=== PATIENT | female | born 1945 | race Caucasian/White ===

== ENCOUNTER 2016-07-24 07:01 | Day surgery (SDC) | payer MEDICARE, OTHER ==
[2016-07-22 14:12] VITALS: BMI 42.9
[~2016-07-24 07:01] MED LIST: LACTATED RINGERS 1,000 ML IV SCH
[2016-07-24 07:21] VITALS: TEMP 97.9
[2016-07-24] MEDS ORDERED: LACTATED RINGERS 1,000 ML IV ONE ×2 (07:26)
[2016-07-24 07:30] LABS: Glucose,Whole Blood 107 mg/dL (75-99)
[2016-07-24] MEDS ORDERED: MIDAZOLAM 2 MG/2 ML VIAL ONE (08:08)
[2016-07-24] MEDS ORDERED: LIDOCAINE 1% INJ 10MG/ML (20 ML MDV) ONE (08:08)
[2016-07-24] MEDS ORDERED: PROPOFOL 10 MG/ML 20 ML VIAL IV ONE (08:08)
[2016-07-24 08:52] VITALS: BP 171/74; PULSE 83; RESP 16
--- NOTE | 2016-07-24 08:53 | P.PCN ---
Date of Procedure: 07/24/16 Preoperative Diagnosis: Postoperative Diagnosis: Procedure(s) Performed: Procedures: 1. Esophagogastroduodenoscopy and biopsy. 2. Total colonoscopy. Preoperative diagnosis: Epigastric pain, change in bowel habits and history of polyps. Postoperative diagnosis: 1. Small sliding hiatal hernia with no obvious esophagitis or complicated reflux disease. 2. Mild antral gastritis. 3. Sigmoid diverticulosis with no evidence of acute diverticulitis or strictures. 4. No polyps or tumors seen. 4. Low-grade internal hemorrhoids not bleeding at the time of this exam. Preparation: HalfLytely prep. Sedation: Was provided by anesthesia. Brief clinical history: The patient is a 71-year-old female who is scheduled for this evaluation because of epigastric pain, change in bowel habits and history of polyps. The patient has history of diverticular disease and prior bouts of diverticulitis and she may have had a recent episode last fall. Last upper endoscopy and colonoscopy was in November 2009. Procedure: With the patient on her left lateral decubitus position and after informed consent and adequate sedation, I passed the Olympus-GIF 160 video upper endoscope through the cricopharyngeus down the esophagus. GE junction was around 40-41 cm from the incisors and there was a small sliding hiatal hernia. The esophagus did not show any evidence of esophagitis or complicated reflux disease. The endoscope was then passed into the stomach which was insufflated with air and inspected in detail including the retroflex view in the cardia. There was minimal mottling and erythema in the antrum but no ulcers or erosions. Pyloric channel, duodenal bulb, post bulbar area and descending duodenum showed minimal erythema. I obtained biopsies from the duodenum, antrum and esophagus then the endoscope was withdrawn and I proceeded with the colonoscopy. Perianal area did not show any fissures or fistulas. There were no masses felt on digital rectal examination. The Olympus CFQ 160L video colonoscope was then inserted in the rectum in the usual fashion and advanced to the cecum. There were multiple diverticular orifices seen scattered in the sigmoid with no evidence of acute diverticulitis or strictures. The mucosa appeared healthy. No polyps or tumors were seen. I retroflexed endoscope in the rectum before the endoscope was withdrawn. Low-grade internal hemorrhoids were noted but there was no bleeding. The patient tolerated the procedure well. Plan: The patient was reassured. Discussed dietary measures and local care for hemorrhoids. Will await pathology results. Further plans based on her course and biopsy results. She will follow-up with you as planned. With her history of polyps, I recommended repeat colonoscopy in 5 years. Implants: Indications for Procedure: Operative Findings: Description of Procedure:
[2016-07-24 08:57] LABS: Glucose,Whole Blood 97 mg/dL (75-99)
== END 2016-07-24 09:31 | disposition home or self-care (01) ==
LOC: ORWHC2ENDO 07:01
DX: K57.30 Diverticulosis of large intestine without perforation or abscess without bleeding (principal); Z86.010 Personal history of colon polyps; K64.8 Other hemorrhoids; K29.50 Unspecified chronic gastritis without bleeding; K44.9 Diaphragmatic hernia without obstruction or gangrene; K21.0 Gastro-esophageal reflux disease with esophagitis; I10 Essential (primary) hypertension; J45.909 Unspecified asthma, uncomplicated; Z88.0 Allergy status to penicillin; Z79.899 Other long term (current) drug therapy; Z79.891 Long term (current) use of opiate analgesic
CPT/HCPCS: 88305; 88342; 45378; 43239; J2250; J2001; J2704

== ENCOUNTER 2017-05-28 11:28 | Day surgery (SDC) | payer MEDICARE, OTHER ==
[2017-05-27 09:13] VITALS: BMI 42.9
--- NOTE | 2017-05-28 09:54 | P.GSHP ---
History of Present Illness H&P Date: 05/28/17 CHIEF COMPLAINT: GERD HISTORY OF PRESENT ILLNESS: The patient is a 72-year-old female who presents reports gastroesophageal reflux disease. Upper endoscopy was offered for further evaluation and management. PAST MEDICAL HISTORY: Please see list. PAST SURGICAL HISTORY: Please see list. MEDICATIONS: Please see list. ALLERGIES: Please see list. SOCIAL HISTORY: No illicit drug use FAMILY HISTORY: No reports of Crohn disease or ulcerative colitis. REVIEW OF ORGAN SYSTEMS: CONSTITUTIONAL: No reports of fevers or chills. GI: Denies any blood in stools or constipation. PHYSICAL EXAM: VITAL SIGNS: Stable GENERAL: Well-developed and pleasant in no acute distress. HEENT: No scleral icterus. Extraocular movements grossly intact. Moist buccal mucosa. NECK: Supple without lymphadenopathy. CHEST: Unlabored respirations. Equal bilateral excursions. CARDIOVASCULAR: Regular rate and rhythm. Distal 2+ pulses. ABDOMEN: Soft, nondistended. MUSCULOSKELETAL: No clubbing, cyanosis, or edema. ASSESSMENT: 1. Gastroesophageal reflux disease PLAN: 1. Recommend proceeding with an upper endoscopy Past Medical History Past Medical History: Diabetes Mellitus, Eye Disorder, Hypertension, Osteoarthritis (OA) Additional Past Medical History / Comment(s): DIET CONTROLLED- DIABETIC, DIVERTICULITIS, LT EYE MAC. DEGEN. History of Any Multi-Drug Resistant Organisms: None Reported Past Surgical History: Cholecystectomy, Orthopedic Surgery Additional Past Surgical History / Comment(s): PAIN CLINIC INJECTIONS, RIGHT SHOULDER SX, COLONOSCOPY, EGD Past Anesthesia/Blood Transfusion Reactions: No Reported Reaction Smoking Status: Never smoker - Past Family History Mother Family Medical History: CVA/TIA Father Family Medical History: Myocardial Infarction ([place]) Medications and Allergies Home Medications Medication Instructions Recorded Confirmed Type Cholecalciferol [Vitamin D3] 5,000 unit PO DAILY 09/29/14 05/27/17 History Losartan [Cozaar] 50 mg PO DAILY 01/12/16 05/27/17 History Ranitidine HCl [Zantac] 150 mg PO DAILY 07/22/16 05/27/17 History Allergies Allergy/AdvReac Type Severity Reaction Status Date / Time Penicillins Allergy Rash/Hives Verified 05/27/17 09:09
[~2017-05-28 11:28] MED LIST changes: +LIDOCAINE 1% 20 ML VIAL (10MG/ML) FOR IV START INTRADERMA PRN
[2017-05-28 11:56] VITALS: RESP 16; TEMP 97.2
[2017-05-28 12:06] LABS: Glucose,Whole Blood 100 mg/dL (75-99)
[2017-05-28] MEDS ORDERED: PROPOFOL 10 MG/ML 20 ML VIAL IV ONE (12:36)
[2017-05-28] MEDS ORDERED: LIDOCAINE 1% INJ 10MG/ML (20 ML MDV) ONE (12:36)
--- NOTE | 2017-05-28 12:55 | P.PCN ---
Date of Procedure: 05/28/17 Description of Procedure: PREOPERATIVE DIAGNOSIS: Gastroesophageal reflux disease. Morbid obesity. POSTOPERATIVE DIAGNOSIS: Morbid obesity. Gastritis. Gastroesophageal reflux disease. OPERATION: Esophagogastroduodenoscopy with biopsies along antrum. SURGEON: Nina Mckeon MD ANESTHESIA: MAC. INDICATIONS: The patient is a 72-year-old female who presents with a history of reflux disease. Benefits and risks of the procedure were described. Informed consent was obtained. DESCRIPTION: The patient was brought into the endoscopy suite and laid in the left lateral decubitus position. An Olympus gastroscope was passed along the posterior oropharynx down to the distal esophagus where the squamocolumnar junction was encountered at 40 cm from the incisors. The stomach was entered and no bile reflux was found. Additional findings are listed below. Biopsies with cold forceps were obtained of the antrum. The first through third portion of the duodenum was examined and unremarkable. Retroflexion of the scope confirmed Hill grade 4 lower esophageal valve. The squamocolumnar junction demostrated LA grade A erosive esophagitis. The stomach was desufflated. The patient tolerated the procedure well. FINDINGS: Squamocolumnar junction 40 cm from the incisors. Diaphragmatic hiatus at 40 cm. Hill grade 1 lower esophageal valve. LA grade A erosive esophagitis. No active duodenitis. Superficial gastritis without bleeding RECOMMENDATIONS: Further recommendations pending results of pathology report. Upper endoscopy as needed. Plan - Discharge Summary New Discharge Prescriptions: No Action Cholecalciferol [Vitamin D3] 5,000 unit PO DAILY Losartan [Cozaar] 50 mg PO DAILY Ranitidine HCl [Zantac] 150 mg PO DAILY Discharge Medication List Cholecalciferol [Vitamin D3] 5,000 unit PO DAILY 09/29/14 [History] Losartan [Cozaar] 50 mg PO DAILY 01/12/16 [History] Ranitidine HCl [Zantac] 150 mg PO DAILY 07/22/16 [History]
[2017-05-28 13:23] VITALS: BP 154/82; PULSE 69
== END 2017-05-28 13:30 | disposition home or self-care (01) ==
LOC: ORWHC2ENDO 11:28
PROVIDERS: ATTEND Surgery Plastic and Reconstructive Surgery
DX: K29.50 Unspecified chronic gastritis without bleeding (principal); K22.10 Ulcer of esophagus without bleeding; K21.9 Gastro-esophageal reflux disease without esophagitis; E11.8 Type 2 diabetes mellitus with unspecified complications; I10 Essential (primary) hypertension; J45.909 Unspecified asthma, uncomplicated; M19.90 Unspecified osteoarthritis, unspecified site; E66.01 Morbid (severe) obesity due to excess calories; Z68.41 Body mass index [BMI] 40.0-44.9, adult; Z79.899 Other long term (current) drug therapy; Z88.0 Allergy status to penicillin
CPT/HCPCS: 88305; 43239; J2001; J2704

== ENCOUNTER → 2017-12-07 | Outpatient (CLI) | payer MEDICARE, OTHER ==
[2017-12-07 09:44] VITALS: BMI 42.8
== END | disposition home or self-care (01) ==
LOC: BARWHC3 08:49
PROVIDERS: ATTEND Surgery Plastic and Reconstructive Surgery
DX: E66.01 Morbid (severe) obesity due to excess calories (principal); Z68.41 Body mass index [BMI] 40.0-44.9, adult
CPT/HCPCS: 97804

== ENCOUNTER → 2017-12-16 | Outpatient (CLI) | payer MEDICARE, OTHER ==
[2017-12-16 13:48] VITALS: BP 162/71; PULSE 67; TEMP 98.7; BMI 42.9
--- NOTE | 2017-12-16 14:33 | P.HPBAR ---
Bariatric H&P - History & Physicial H&P Date: 12/16/17 History & Physicial: Visit/CC: RnY consult/sign consent/obtain PAT order Patient initial contact: Initial weight: 113.398 kg Initial weight in pounds: 250.00 Height: 5 ft 4 in Initial BMI: 42.9 Last weight: Current weight: 113.398 kg Current weight in pounds: 250.00 Current BMI: 42.9 [place] body weight (based on NIH guidelines): 54.431 kg Excess body weight loss: 0.0% The patient is a 72 year-old F who presents for Bariatric Assessment. CHIEF COMPLAINT: GERD HISTORY OF PRESENT ILLNESS: The patient is a 59-year-old female who presents reports gastroesophageal reflux disease. Upper endoscopy was offered for further evaluation and management. PAST MEDICAL HISTORY: Please see list. PAST SURGICAL HISTORY: Please see list. MEDICATIONS: Please see list. ALLERGIES: Please see list. SOCIAL HISTORY: No illicit drug use FAMILY HISTORY: No reports of Crohn disease or ulcerative colitis. REVIEW OF ORGAN SYSTEMS: CONSTITUTIONAL: No reports of fevers or chills. GI: Denies any blood in stools or constipation. PHYSICAL EXAM: VITAL SIGNS: Stable GENERAL: Well-developed and pleasant in no acute distress. HEENT: No scleral icterus. Extraocular movements grossly intact. Moist buccal mucosa. NECK: Supple without lymphadenopathy. CHEST: Unlabored respirations. Equal bilateral excursions. CARDIOVASCULAR: Regular rate and rhythm. Distal 2+ pulses. ABDOMEN: Soft, nondistended. MUSCULOSKELETAL: No clubbing, cyanosis, or edema. ASSESSMENT: 1. Gastroesophageal reflux disease 2. Hypertension PLAN: 1. Recommend proceeding EKG and labs. 2. She is looking into the sleeve despite her reflux. 3. Needs cardiac clearance. 4. Will need esophogram Past Medical History Past Medical History: Diabetes Mellitus, Eye Disorder, Hypertension, Osteoarthritis (OA) Additional Past Medical History / Comment(s): DIET CONTROLLED- DIABETIC, DIVERTICULITIS, LT EYE MAC. DEGEN. History of Any Multi-Drug Resistant Organisms: None Reported Past Surgical History: Cholecystectomy, Orthopedic Surgery Additional Past Surgical History / Comment(s): PAIN CLINIC INJECTIONS, RIGHT SHOULDER SX, COLONOSCOPY, EGD Past Anesthesia/Blood Transfusion Reactions: No Reported Reaction Smoking Status: Never smoker - Past Family History Mother Family Medical History: CVA/TIA Father Family Medical History: Myocardial Infarction ([place]) Surgical - Exam Vital Signs Temp Pulse BP 98.7 F 67 162/71 12/16/17 13:38 12/16/17 13:38 12/16/17 13:38 Bariatric Checklist Checklist: Plan: Checklist: EGD: 1. Hiatal hernia: 2. H. Pylori: HgbA1c: Vitamin D: Smoking: Never smoker Primary [place] [facility] [place] [place] Psychiatry clearance: Cardiology clearance: Sleep study: Diet journal: VTE risk score: VTE risk level: Rehab needs at discharge:
[2017-12-16 15:39] LABS: HCT 43.8 % (34.0-46.0); HGB 13.8 gm/dL (11.4-16.0); MCH 28.8 pg (25.0-35.0); MCHC 31.5 g/dL (31.0-37.0); MCV 91.7 fL (80.0-100.0); Mean Platelet Volume 7.6; Platelet Count 188 k/uL (150-450); RBC 4.77 m/uL (3.80-5.40); RDW 13.9 % (11.5-15.5); WBC 7.5 k/uL (3.8-10.6)
[2017-12-16 19:09] LABS: Iron Saturation 18.84 (12.00-45.00)
[2017-12-16 19:17] LABS: Vitamin D 25 Hydroxy 31.8 ng/mL (30.0-100.0)
[2017-12-16 20:25] LABS: Folate, Serum 14.8 ng/mL
[2017-12-17 04:48] LABS: Hemoglobin A1C 6.5 % (4.0-6.0)
[2017-12-17 04:53] LABS: Albumin 4.5 g/dL (3.80-4.90); Albumin/Globulin Ratio 1.8 (1.20-2.10); Anion Gap 16.5 mmol/L (4.00-12.00); Calcium 9.4 mg/dL (8.7-10.3); Carbon Dioxide 19.5 mmol/L (21.6-31.8); Globulin 2.5 g/dL (2.1-3.7); LDL Cholesterol,Calculated 81.2 mg/dL (0.0-131.0); Potassium 4.4 mmol/L (3.5-5.5); Total Bilirubin 0.5 mg/dL (0.3-1.2); VLDL Calculation 30.8 mg/dL (5.00-40.00)
== END | disposition home or self-care (01) ==
LOC: BARWHC3 12:56
PROVIDERS: ATTEND Surgery Plastic and Reconstructive Surgery
DX: K21.9 Gastro-esophageal reflux disease without esophagitis (principal); I10 Essential (primary) hypertension; E66.01 Morbid (severe) obesity due to excess calories; E88.81 Metabolic syndrome and other insulin resistance; E44.0 Moderate protein-calorie malnutrition; E55.9 Vitamin D deficiency, unspecified; I11.9 Hypertensive heart disease without heart failure; G47.30 Sleep apnea, unspecified; Z68.41 Body mass index [BMI] 40.0-44.9, adult
CPT/HCPCS: 84425; 80061; 80053; 82607; 82728; 82746; 83540; 83550; 84443; 85027; 82306; 83036; 93005; 36415; G0463; 99211

== ENCOUNTER → 2017-12-25 | Outpatient (CLI) | payer MEDICARE, OTHER ==
--- NOTE | 2017-12-25 14:09 | FL ---
EXAMINATION TYPE: FL esophagus cervic/pharynx DATE OF EXAM: 12/25/2017 HISTORY: Gastroesophageal reflux and nausea at night COMPARISON: NONE TECHNIQUE: A double contrast esophagram is performed utilizing air and barium. FINDINGS: Esophagus dilates to normal caliber has normal contour to the gastroesophageal junction. Gastroesopha geal junction opens to normal caliber. No hiatal hernia is evident. A few subtle tertiary contraction s were present during the examination compatible some very mild presbyesophagus. There is incomplete stripping of esophageal bolus in the horizontal drinking position. No intraluminal or extramural defect is evident. The upright view there is complete emptying of the e sophagus. IMPRESSION: 1. Minimal presbyesophagus with incomplete stripping of the esophageal bolus in the horizontal drinki ng position. 2. No reflux evident during the exam. 3. No hiatal hernia.
== END ==
LOC: RADFLWHC 11:05
PROVIDERS: ATTEND Surgery Plastic and Reconstructive Surgery
DX: K22.8 Other specified diseases of esophagus (principal)
CPT/HCPCS: 74210

== ENCOUNTER → 2018-01-20 | Outpatient (CLI) | payer MEDICARE, OTHER ==
[2018-01-20 15:09] LABS: HCT 45.2 % (34.0-46.0); HGB 14.3 gm/dL (11.4-16.0); MCH 28.7 pg (25.0-35.0); MCHC 31.6 g/dL (31.0-37.0); MCV 90.8 fL (80.0-100.0); Mean Platelet Volume 7.4; Platelet Count 189 k/uL (150-450); RBC 4.98 m/uL (3.80-5.40); RDW 13.8 % (11.5-15.5); WBC 6.6 k/uL (3.8-10.6)
[2018-01-20 15:17] LABS: Albumin 4.2 g/dL (3.5-5.0); Calcium 9.4 mg/dL (8.4-10.2); Potassium 4.7 mmol/L (3.5-5.1); Total Bilirubin 0.6 mg/dL (0.2-1.3); Total Protein 7.6 g/dL (6.3-8.2)
== END | disposition home or self-care (01) ==
LOC: LABPAT 14:09
PROVIDERS: ATTEND Surgery Plastic and Reconstructive Surgery
DX: Z01.818 Encounter for other preprocedural examination (principal)
CPT/HCPCS: 36415; 80053; 85027

== ENCOUNTER 2018-01-25 07:30 | Inpatient (IN) | payer MEDICARE, OTHER ==
--- NOTE | 2018-01-31 17:45 | P.GSHP ---
History of Present Illness H&P Date: 02/01/18 CHIEF COMPLAINT: Morbid obesity HISTORY OF PRESENT ILLNESS: Gracie Ybarra is a 72-year-old female who reports developing morbid obesity lifelong. Today she comes in weighing 242 pounds. At her present height of 5 feet 4 inches, her body mass index is 41.7. She has medical comorbidities including hypertensive heart disease, diabetes type 2, tbm-khwhdbx-beovdwupc hyperlipidemia, osteoarthritis, and sleep apnea She now comes in evaluating for the sleeve gastrectomy. PAST MEDICAL HISTORY: 1. Morbid obesity excess calories, BMI 41.7 2. Hypertensive heart disease 3. Hyperlipidemia 4. Osteoarthritis 5. Diabetes type 2, kbt-uypdsma-owgtzsnqg 6. Macular degeneration 7. Diverticulitis PAST SURGICAL HISTORY: 1. Cholecystectomy 2. Upper endoscopy 3. Lower endoscopy 4. Right shoulder repair SOCIAL HISTORY: No active tobacco use FAMILY HISTORY: Denies any DVTs, pulmonary embolisms in her family. Denies any ulcerative colitis disease or Crohn's. She does have a family history of morbid obesity. HOME MEDICATIONS: 1. Cozaar 2. Vitamin D ALLERGIES: Penicillin anaphylaxis REVIEW OF ORGAN SYSTEMS: CONSTITUTIONAL: No recent weight loss, fevers or chills. She is 98 pounds overweight. Initial BMI 41.7. HEENT: Denies any active troubles with hearing. She wears glasses. ENDOCRINE: No reports of hypothyroidism. Has diet controlled diabetes. CARDIOVASCULAR: No reports of palpitations or heart attacks or chest pain. RESPIRATORY: Has daytime somnolence including snoring, suspicious for sleep apnea. No recent asthma. GI: Denies any bright red blood per rectum, diarrhea or constipation. Has diverticulitis. MUSCULOSKELETAL: Describes generalized muscle aches. History of pain clinic for right shoulder NEURO: There were no reports of headaches or seizure disorders. PSYCH: No depression or suicidal ideation. HEMATOLOGIC: Denies any abnormal bleeding or bruising. SKIN: No skin cancer or rash PHYSICAL EXAM: VITAL SIGNS: Height 5 foot 4 inches, weight 242 pounds. BMI 41.7 GENERAL: Well-developed female in no acute distress. HEENT: No scleral icterus. Extraocular movements grossly intact. Head is normocephalic. Hears conversational speech. NECK: Supple without lymphadenopathy. CHEST: Nonlabored respirations with equal bilateral excursions. CARDIOVASCULAR: Regular rate. Distal 2+ pulses. ABDOMEN: Obese, soft, nontender, nondistended. MUSCULOSKELETAL: No clubbing, cyanosis, or edema. Gross strength 5/5 distal lower extremities. NEURO: No focal or lateralizing signs. Cranial nerves 2 through 12 grossly within normal limits. PSYCH: Appropriate affect. Alert and oriented to person, place and time. SKIN: Well perfused. Good skin turgor. STUDIES: Esophagram negative for large hiatal hernia. EKG: Normal sinus rhythm and rate from November 2017 ASSESSMENT: 1. Morbid obesity excess calories, BMI 41.7 2. Hypertensive heart disease 3. Hyperlipidemia 4. Osteoarthritis 5. Diabetes type 2, djl-exblubs-dtrpqonzm 6. Macular degeneration 7. Diverticulitis PLAN: 1. Bariatric options between a sleeve, band and a Mynor-en-Y gastric bypass were reviewed in detail. She elected for sleeve gastrectomy. Robotic assisted approach described. 2. The [place] [facility] Data was also reviewed with benefits and risks as described. 3. An ultrasound of her gallbladder was obtained. Robotic cholecystectomy was also reviewed. 4. She has completed cardiac risk assessment. 5. An 8 page second-generation bariatric consent form was reviewed in detail including potential of bleeding, infection, leaks, adequate weight loss, nutritional deficiencies which she demonstrated understanding of the risks. 6. A 2 week high-protein low caloric 800 kcal diet described to address hepatomegaly. 7. DVT prophylaxis per [place] bariat[facility] surgery collaborative. 8. Antibiotic prophylaxis. 9. Inpatient hospitalization anticipated for more than 2 nights. 10. All questions and concerns were addressed with the patient. Past Medical History Past Medical History: Diabetes Mellitus, Eye Disorder, Hypertension, Osteoarthritis (OA) Additional Past Medical History / Comment(s): DIET CONTROLLED- DIABETIC, DIVERTICULITIS, LT EYE MAC. DEGEN. History of Any Multi-Drug Resistant Organisms: None Reported Past Surgical History: Cholecystectomy, Orthopedic Surgery Additional Past Surgical History / Comment(s): PAIN CLINIC INJECTIONS, RIGHT SHOULDER SX, COLONOSCOPY, EGD Past Anesthesia/Blood Transfusion Reactions: No Reported Reaction Smoking Status: Never smoker - Past Family History Mother Family Medical History: CVA/TIA Father Family Medical History: Myocardial Infarction ([place]) Medications and Allergies Home Medications Medication Instructions Recorded Confirmed Type Losartan [Cozaar] 50 mg PO DAILY 01/12/16 01/27/18 History Cholecalciferol [Vitamin D3] 1,000 unit PO DAILY 12/12/18 12/12/18 History Allergies Allergy/AdvReac Type Severity Reaction Status Date / Time Penicillins Allergy Severe Anaphylaxis Verified 01/27/18 12:41
[2018-02-01] MEDS ORDERED: CLINDAMYCIN 900 MG in DEXTROSE 5% IN WATER 50 ML IVPB ONE ×2 (05:00)
[2018-02-01] MEDS ORDERED: DEXAMETHASONE SOD PHOSPHATE 10 MG/ML 1 ML VIAL IV ONE (05:46)
[2018-02-01] MEDS ORDERED: CHLORHEXIDINE GLUCONATE 15 ML CUP MUCOUS MEM ONE (05:46)
[2018-02-01] MEDS ORDERED: PANTOPRAZOLE 40 MG/10 ML VIAL IV STA (05:46)
[2018-02-01] MEDS ORDERED: ONDANSETRON 4 MG/2 ML VIAL IVP ONE (05:46)
[2018-02-01] MEDS ORDERED: MIDAZOLAM (PF) 2 MG/2 ML VIAL IV PRN (05:46)
[2018-02-01] MEDS ORDERED: ENOXAPARIN 40 MG/0.4 ML SYRINGE SQ STA (05:46)
[2018-02-01] MEDS ORDERED: ACETAMINOPHEN IV (For NPO) 1,000 MG in EMPTY BAG 1 BAG IVPB STA (05:46)
[2018-02-01] MEDS ORDERED: CLINDAMYCIN 600 MG in DEXTROSE 5% IN WATER 50 ML IVPB STA ×2 (05:46)
[2018-02-01 12:12] LABS: Glucose,Whole Blood 97 mg/dL (75-99)
[2018-02-01] MEDS ORDERED: LIDOCAINE 1% 20 ML VIAL (10MG/ML) FOR IV START INTRADERMA ONE (12:15)
[2018-02-01] MEDS: LACTATED RINGERS 1,000 ML IV SCH (12:15)
[2018-02-01] MEDS ORDERED: PROPOFOL 10 MG/ML 20 ML VIAL IV ONE (13:00)
[2018-02-01] MEDS ORDERED: MIDAZOLAM 2 MG/2 ML VIAL ONE (13:00)
[2018-02-01] MEDS ORDERED: fentaNYL (PF) 50 MCG/ML 2 ML AMP ONE (13:00)
[2018-02-01] MEDS ORDERED: LIDOCAINE 1% INJ 10MG/ML (20 ML MDV) ONE (13:00)
[2018-02-01] MEDS ORDERED: SUCCINYLCHOLINE CHLORIDE 100 MG/5 ML SYR IV ONE (13:00)
[2018-02-01] MEDS ORDERED: ROCURONIUM BROMIDE 10 MG/ML 10 ML VIAL IV ONE (13:00)
[2018-02-01] MEDS ORDERED: GLYCOPYRROLATE 0.2 MG/ML 2 ML VIAL ONE (13:00)
[2018-02-01] MEDS ORDERED: NEOSTIGMINE 1 MG/ML 10 ML VIAL ONE (13:00)
[2018-02-01] MEDS ORDERED: ePHEDrine SULFATE/0.9% NACL/PF 50 MG/5 ML SYRINGE IV ONE (13:00)
[2018-02-01] MEDS ORDERED: CLINDAMYCIN 150 MG/ML 4 ML VIAL IVPB ONE (13:35)
[2018-02-01] MEDS ORDERED: BUPIVACAIN-EPI 0.25%-1:200,000 30 ML VIAL SQ ONE (13:40)
[2018-02-01] MEDS ORDERED: NALOXONE 0.4 MG/ML 1 ML VIAL IV PRN (14:59)
[2018-02-01] MEDS ORDERED: diphenhydrAMINE 50 MG/ML 1 ML VIAL IVP PRN (14:59)
--- NOTE | 2018-02-01 14:59 | P.OP ---
Date of Procedure: 02/01/18 Description of Procedure: SURGEON: DIVINE SARMIENTO MD PREOPERATIVE DIAGNOSES: 1. Morbid obesity excess calories, BMI 41.7 initial 2. Hypertensive heart disease 3. Hyperlipidemia 4. Osteoarthritis 5. Diabetes type 2, cyj-tnwumwk-uobrcwqdf 6. Macular degeneration 7. Diverticulitis POSTOPERATIVE DIAGNOSES: 1. Morbid obesity excess calories, BMI 41.7 initial 2. Hypertensive heart disease 3. Hyperlipidemia 4. Osteoarthritis 5. Diabetes type 2, ife-zsgpapj-teosubxwd 6. Macular degeneration 7. Diverticulitis OPERATION: 1. Robotic assisted daVinci Xi laparoscopic sleeve gastrectomy with 40-Norwegian bougie, multiport. 2. Intraoperative esophagogastroduodenoscopy. ANESTHESIA: Gen. local anesthetic ESTIMATED BLOOD LOSS: 5 mL SPECIMENS REMOVED: Sleeve gastrectomy COMPLICATIONS: None. INDICATIONS: Gracie Ybarra is a 72-year-old female who reports developing morbid obesity lifelong. Today she comes in weighing 237 pounds from 242 pounds, 2 weeks ago. At her present height of 5 feet 4 inches, her body mass index is 40.7 from 41.7. She has medical comorbidities including hypertensive heart disease, diabetes type 2, coj-xsnkwiz-lwvxmqjij hyperlipidemia, osteoarthritis, and sleep apnea She now comes in evaluating for the sleeve gastrectomy. She comes in for sleeve gastrectomy. All surgical options for morbid obesity had been described using the [place] bariatric surgery collaborative comorbidity resolution including complication risk score. A second-generation bariatric consent form was described in detail including the possibility of protein malnutrition, leaks, gastric stricture, venous thrombosis, gastroesophageal reflux disease, need for further surgery for which she demonstrated understanding. Benefits and risks of the procedure were described at length. Informed consent was obtained. DESCRIPTION: The patient was brought into the operating room theater. Preoperatively she had received Lovenox subcutaneously for DVT prophylaxis. Additionally she had Peridex oral solution as an oral decontaminant. After general induction, the abdomen was prepped and draped in standard sterile fashion. An Ioban draping was placed along the abdomen. No keller catheter was placed A robotic da Madai Xi system was prepped and primed. The xiphoid to umbilicus measured 25 cm. At 20 cm from the xiphoid, proposed port sites were marked with indelible marker along the anterior axillary line bilaterally, mid axillary line bilaterally with each ports were marked 10 to 15 cm from each other. The nurse's assistant port was marked along the left lateral abdominal wall. The robotic stapler port was marked for the right midclavicular line. A 5 mm 0 degrees laparoscopic trocar entry was performed along the left upper quadrant. The abdomen was insufflated to 15 mmHg pressure he tolerated well. Diagnostic laparoscopy demonstrated no injury to bowel, viscera, or mesentery. The liver surface was unremarkable for hepatomegaly. No injury had occurred to the small bowel or viscera. Along the hiatus no evidence of large prominent hiatal hernia. A 8 mm port was placed along the right upper abdominal wall after exchanging the 5 mm port. A separate 8 mm port was placed along the left lateral abdominal wall. Please note that the ports were placed at least 20 cm away from the target anatomy. Care was taken to check each robotic arms were safely away from collision with the bed or the patient. At the epigastrium, a median sized Kaila liver retractor was placed under direct visualization with the [employer] Consultant placed under the right shoulder of the patient. Next, 12-mm robot stapler port was placed along the right upper quadrant. The camera 8-mm port was maintained along the epigastrium, The patient was repositioned in reverse Trendelenburg position at 14-degrees after lowering the bed. The robot was docked along the left side of the patient. Using a grasper for arm 4, a veseel sealer for arm 3, including grasper for arm 1, the robotic system was docked and primed as described. Instruments were interchanged by the nurse's assistant for stapler loads. The camera was placed at 30-degrees down. I had sat at the console. The pylorus was identified and 6 cm proximally along the greater curvature of the stomach, the short gastrics were mobilized upwards to the angle of His using a vessel sealer. Hemostasis was excellent during this portion of the procedure. The nursing senior occupational therapist placed a 40-Norwegian blunted bougie into the stomach. Robotic stapler green loads 45 mm x 2, followed by blue 45 mm x 6 loads and 1- 45 mm white loads were used to create the sleeve. Initial firing was across the antrum of the stomach towards the angle of His. The staple line was completely hemostatic and linear without corkscrewing. Hemostasis was excellent. The space from the angularis incisura of the sleeve was approximately 4 cm. I then went to the head of the bed to perform the intraoperative esophagogastroduodenoscopy leak test. The upper pole of the stomach was bathed using normal saline solution. The scope was withdrawn with careful inspection along the staple line for which no leaks were found along the entire length. Additionally, the sleeve was completely hemostatic without any encroachment along the angularis incisura. Its topology was a soft "J". No stricture was encountered upon placement of the scope. The GI tract was desufflated. The patient tolerated this portion of the procedure well. The scope was completely withdrawn. The robot was undocked. I then rescrubbed into case, whereby the irrigation fluid was aspirated from the abdominal cavity. Attention was now brought to removal of the specimen. The distal end of the sleeve gastrectomy specimen was brought out through the 12 mm port at the left upper quadrant. The specimen was gently removed en total , corresponding to 26 cm x 4 cm sleeve gastrectomy specimen. No contamination had occurred during this process. All instruments and pneumoperitoneum including irrigation fluid was removed from the abdominal cavity. The 12 mm port site was irrigated with warm normal saline solution and diluted hydron peroxide. The final incisions were closed using subcuticular interrupted suture of 4-0 Monocryl. Dermabond was applied to the skin once the skin had been cleansed. OptiFoam dressing was placed along the stomach extraction site. At the end of the procedure, needle, sponge, and instrument count was verified correct by the surgical processor. The patient was taken to the postanesthesia care unit in stable condition. She had tolerated the procedure well. FINDINGS: 1. Negative intraoperative esophagogastrojejunoscopy leak test. 2. No hepatomegaly or large hiatus hernia. 3. Total of 8 staplers used including 2 - 45 mm green robot yair, 6 - 45 mm blue loads and 1 - 45 mm white robot loads used to create the gastric sleeve. 4. Xiphoid to umbilicus of 25 cm. 5. Trocars placed 20 cm from xiphoid process 6. Sleeve gastrectomy 26 x 4 cm 7. Console time 39 minutes
[2018-02-01 15:15] LABS: Glucose,Whole Blood 165 mg/dL (75-99)
[2018-02-01] MEDS: HYDROmorphone 1 MG/ML 1 ML SYRINGE IVP PRN ×4 (15:34→21:33)
[2018-02-01] MEDS: SIMETHICONE 40 MG/0.6 ML DROPS 2,000 MG/30 ML BOTTLE PO SCH ×2 (15:51→16:40)
[2018-02-01] MEDS: ALBUTEROL NEBULIZED 2.5 MG/3 ML INHALATION SCH ×2 (16:29→18:47)
[2018-02-01 16:46] VITALS: BMI 40.4
[2018-02-01] MEDS: 0.9% NACL WITH KCL 20 MEQ/L 1,000 ML IV SCH (16:54)
[2018-02-01] MEDS: ONDANSETRON 4 MG/2 ML VIAL IVP SCH (17:00)
[2018-02-01 17:48] LABS: Glucose,Whole Blood 177 mg/dL (75-99)
[2018-02-01] MEDS: HYDROcodone/APAP 15 ML SOLUTION PO PRN (17:48)
[2018-02-01] MEDS: INSULIN ASPART 100 UNIT/ML 1 ML 10 ML VIAL SQ SCH (17:48)
[2018-02-01] MEDS ORDERED: ACETAMINOPHEN IV (For NPO) 1,000 MG in EMPTY BAG 1 BAG IVPB ONE (18:00)
[2018-02-01] MEDS: HYOSCYAMINE ORAL DROPS 1.875 MG/15 ML BOTTLE PO SCH ×2 (18:12→21:33)
[2018-02-01 18:41] VITALS: RESP 16
[2018-02-01] MEDS: CLINDAMYCIN 900 MG in DEXTROSE 5% IN WATER 50 ML IVPB SCH ×2 (21:32)
[2018-02-02] MEDS: ONDANSETRON 4 MG/2 ML VIAL IVP SCH ×3 (00:05→17:08)
[2018-02-02] MEDS: SIMETHICONE 40 MG/0.6 ML DROPS 2,000 MG/30 ML BOTTLE PO SCH ×4 (00:06→17:11)
[2018-02-02] MEDS: HYDROcodone/APAP 15 ML SOLUTION PO PRN (00:07)
[2018-02-02 00:11] LABS: Glucose,Whole Blood 149 mg/dL (75-99)
[2018-02-02] MEDS: HYOSCYAMINE ORAL DROPS 1.875 MG/15 ML BOTTLE PO SCH ×5 (00:18→17:12)
[2018-02-02] MEDS: INSULIN ASPART 100 UNIT/ML 1 ML 10 ML VIAL SQ SCH ×4 (00:18→17:13)
[2018-02-02] MEDS: 0.9% NACL WITH KCL 20 MEQ/L 1,000 ML IV SCH ×4 (00:56→17:13)
[2018-02-02] MEDS: CLINDAMYCIN 900 MG in DEXTROSE 5% IN WATER 50 ML IVPB SCH ×2 (05:33)
[2018-02-02] MEDS: HYDROmorphone 1 MG/ML 1 ML SYRINGE IVP PRN ×3 (05:34→17:06)
[2018-02-02] MEDS: LACTATED RINGERS 1,000 ML IV SCH (07:04)
[2018-02-02] MEDS: ENOXAPARIN 40 MG/0.4 ML SYRINGE SQ SCH ×2 (07:10→07:13)
[2018-02-02 07:14] LABS: Glucose,Whole Blood 105 mg/dL (75-99)
[2018-02-02] MEDS: ALBUTEROL NEBULIZED 2.5 MG/3 ML INHALATION SCH ×4 (08:45→20:38)
[2018-02-02] MEDS ORDERED: LOSARTAN 50 MG TAB PO SCH (09:00)
[2018-02-02] MEDS ORDERED: PANTOPRAZOLE 40 MG/10 ML VIAL IV SCH (09:00)
--- NOTE | 2018-02-02 09:42 | FL ---
EXAMINATION TYPE: FL UGI DATE OF EXAM: 02/02/2018 CLINICAL HISTORY: Postop gastric sleeve TECHNIQUE: Postop upper GI is performed utilizing 20 oz of Isovue 370. A total of 43 seconds of fluor oscopic time was utilized during procedure with 12 images saved. COMPARISON: None. FINDINGS: The patient swallowed contrast without difficulty or delay. Esophageal peristalsis and mo tility are within normal limits. There is minimally delayed flow of contrast along the diaphragmatic hiatus into proximal stomach and subsequent flow into gastric sleeve. There minimally delayed flow f rom distal sleeve into pylorus and duodenal sweep. Patient remains asymptomatic. There is no evidence of contrast extravasation to suggest leak. IMPRESSION: No evidence of postoperative leak. Minimal delayed propulsion likely due to minimal posto perative edema status post recent gastric sleeve surgery.
[2018-02-02 11:07] LABS: Calcium 8.8 mg/dL (8.4-10.2); Magnesium 1.9 mg/dL (1.6-2.3); Phosphorus 3.3 mg/dL (2.5-4.5); Potassium 4.6 mmol/L (3.5-5.1)
[2018-02-02 11:14] LABS: Basophils % (A) 0 %; Eosinophils % (A) 0 %; HCT 40.8 % (34.0-46.0); HGB 12.4 gm/dL (11.4-16.0); Hypochromasia Slight; Lymphocytes # (A) 0.7 k/uL (1.0-4.8); Lymphocytes % (A) 8 %; MCHC 30.5 g/dL (31.0-37.0); MCV 91.9 fL (80.0-100.0); Mean Platelet Volume 8.2; Monocytes # (A) 0.4 k/uL (0-1.0); Monocytes % (A) 4 %; Neutrophils # (A) 7.7 k/uL (1.3-7.7); Neutrophils % (A) 87 %; Platelet Count 165 k/uL (150-450); RBC 4.44 m/uL (3.80-5.40); RDW 13.8 % (11.5-15.5); WBC 8.9 k/uL (3.8-10.6)
[2018-02-02 12:08] LABS: Glucose,Whole Blood 97 mg/dL (75-99)
[2018-02-02] MEDS ORDERED: SODIUM CHLORIDE 0.9% 1,000 ML IV ONE (14:41)
[2018-02-02 15:27] VITALS: BP 151/80; PULSE 74; TEMP 98.9
--- NOTE | 2018-02-02 18:09 | P.DS ---
Providers Date of admission: 02/01/18 11:18 Attending physician: Nina Mckeon Primary care physician: Nalini Munguia Plan - Discharge Summary Discharge Rx Participant: Yes New Discharge Prescriptions: New Bisacodyl [Dulcolax] 5 mg PO DAILY PRN #10 tablet. PRN Reason: Constipation Omeprazole 40 mg PO DAILY #30 capsule. Ondansetron Odt [Zofran Odt] 4 mg PO Q8HR PRN #9 tab PRN Reason: Nausea Simethicone 40 mg/0.6 ml Drops [Mylicon Drops] 40 mg PO PCHS PRN #30 ml PRN Reason: Gas HYDROcodone/APAP 7.5-325MG [[place] 7.5-325] 1 tab PO Q4H PRN 3 Days #18 tab PRN Reason: Pain Continue Losartan [Cozaar] 50 mg PO DAILY Discontinued Cholecalciferol [Vitamin D3] 1,000 unit PO DAILY Discharge Medication List Losartan [Cozaar] 50 mg PO DAILY 01/12/16 [History] Bisacodyl [Dulcolax] 5 mg PO DAILY PRN #10 tablet. 02/02/18 [Rx] HYDROcodone/APAP 7.5-325MG [[place] 7.5-325] 1 tab PO Q4H PRN 3 Days #18 tab 02/02 [Rx] Omeprazole 40 mg PO DAILY #30 capsule. 02/02/18 [Rx] Ondansetron Odt [Zofran Odt] 4 mg PO Q8HR PRN #9 tab 02/02/18 [Rx] Simethicone 40 mg/0.6 ml Drops [Mylicon Drops] 40 mg PO PCHS PRN #30 ml [Rx] Follow up Appointment(s)/Referral(s): [facility],. [NON-STAFF] - 02/05/18 10:00 am Patient Instructions/Handouts: Nutrition after Bariatric Surgery (DC), Laparoscopic Sleeve Gastrectomy (DC) Activity/Diet/Wound Care/Special Instructions: NO lifting over 4 pounds in 4 weeks. MAY shower. No bathtub soaks. Dressings to be removed by your doctor in the office. DRINK over 64 OZ of fluids DAILY FOR OPTIMAL RECOVERY. Discharge Disposition: HOME SELF-CARE
[2018-02-03] MEDS ORDERED: BISACODYL 5 MG TABLET.DR PO PRN (08:00)
== END 2018-02-02 18:20 | disposition home or self-care (01) | DRG 620 ==
LOC: 2ORMAIN 02-01 11:18 → 4SSUR 02-01 15:14
PROVIDERS: ADMIT Surgery Plastic and Reconstructive Surgery; ATTEND Surgery Plastic and Reconstructive Surgery
PROC: 8E0W4CZ Robotic Assisted Procedure of Trunk Region, Percutaneous Endoscopic Approach (ICD-10-PCS; 2018-02-01)
PROC: 0DJ08ZZ Inspection of Upper Intestinal Tract, Via Natural or Artificial Opening Endoscopic (ICD-10-PCS; 2018-02-01)
PROC: 0DB64Z3 Excision of Stomach, Percutaneous Endoscopic Approach, Vertical (ICD-10-PCS; principal; 2018-02-01 13:15)
DX: E66.01 Morbid (severe) obesity due to excess calories (principal); K57.92 Diverticulitis of intestine, part unspecified, without perforation or abscess without bleeding; Z68.41 Body mass index [BMI] 40.0-44.9, adult; I11.9 Hypertensive heart disease without heart failure; E11.9 Type 2 diabetes mellitus without complications; M19.90 Unspecified osteoarthritis, unspecified site; E78.5 Hyperlipidemia, unspecified; G47.30 Sleep apnea, unspecified; H35.30 Unspecified macular degeneration; Z71.3 Dietary counseling and surveillance; Z79.899 Other long term (current) drug therapy; Z90.49 Acquired absence of other specified parts of digestive tract; Z88.0 Allergy status to penicillin; Z82.49 Family history of ischemic heart disease and other diseases of the circulatory system; Z82.3 Family history of stroke
CPT/HCPCS: 74240; 80051; 82310; 82565; 83735; 84100; 84520; 85025; 86850; 86900; 86901; 88307; 94640

== ENCOUNTER → 2018-02-04 | Outpatient (CLI) | payer MEDICARE, OTHER ==
[2018-02-04 11:38] VITALS: BP 175/64; PULSE 67; RESP 16; TEMP 97.7
[2018-02-04] MEDS: SODIUM CHLORIDE 0.9% 1,000 ML IV SCH ×2 (11:45→12:45)
== END ==
LOC: PROCWHC3 11:12
PROVIDERS: ATTEND Surgery Plastic and Reconstructive Surgery
DX: E86.0 Dehydration (principal)
CPT/HCPCS: 96360; 96361

== ENCOUNTER → 2018-02-05 | Outpatient (CLI) | payer MEDICARE, OTHER ==
--- NOTE | 2018-02-05 10:19 | P.PN ---
Subjective Progress Note Date: 02/05/18 DATE: 02/05/2018 CHIEF COMPLAINT: Status post sleve gastrectomy HISTORY OF PRESENT ILLNESS: Gracie Ybarra is a 72-year-old female is status post sleeve gastrectomy 02/01/2018. She is postoperative day 4. Her abdominal pain is now improved with introduction of abdominal binder. She reports that she had gotten straight cath in the hospital for urinary retention. She complains of some pain with urination. Today she comes in weighing 245 pounds from 246 pounds, 3 weeks ago. She has lost 1 pound in 3 weeks. At her present height of 5 feet 4 inches, her body mass index was 42.9. She has lost 4 pounds lifetime. Percent excess weight loss is 3%. PHYSICAL EXAM: VITAL SIGNS: Height 5 foot 4 inches, weight 245 pounds. BMI 42.2 Vital Signs Temp 98.7 F 02/05/18 11:17 Pulse 75 02/05/18 11:17 Resp BP 144/85 02/05/18 11:17 Pulse Ox GENERAL: Well-developed female in no acute distress. HEENT: No scleral icterus. Extraocular movements grossly intact. Head is normocephalic. Hears conversational speech. NECK: Supple without lymphadenopathy. CHEST: Nonlabored respirations with equal bilateral excursions. CARDIOVASCULAR: Regular rate. Distal 2+ pulses. ABDOMEN: Obese, soft, nondistended. Incisional tenderness left upper quadrant. No signs of infection on discontinuing dressing on belly. MUSCULOSKELETAL: No clubbing, cyanosis, or edema. NEURO: No focal or lateralizing signs. Cranial nerves 2 through 12 grossly within normal limits. PSYCH: Appropriate affect. Alert and oriented to person, place and time. SKIN: Well perfused. Good skin turgor. ASSESSMENT: 1. Morbid obesity excess calories, BMI 42.8 to 42.2 2. Hypertensive heart disease 3. Hyperlipidemia 4. Osteoarthritis 5. Diabetes type 2, [id number] 6. Macular degeneration 7. Diverticulitis 8. Gastroesophageal reflux disease 9. Status post sleeve gastrectomy PLAN: 1. Will get urinalysis and urine culture. 2. Antibiotics on hold pending urine culture. 3. She complains of incisional pain for which additional pain prescription written for 3 days. 4. Follow-up one week with nurse visit. ADDENDUM: Patient's urinary symptoms resolved without treatment.
[2018-02-05 11:22] VITALS: BP 144/85; PULSE 75; TEMP 98.7; BMI 42.2
[2018-02-05 12:35] LABS: Appearance,Urine Cloudy (Clear); Bacteria,Urine Occasional /hpf; Bilirubin,Urine Negative (Negative); Blood,Urine Trace (Negative); Color,Urine Light Yellow; Glucose,Urine (UA) Negative (Negative); Ketones,Urine 1+ (Negative); Leukocyte Esterase,Urine Large (Negative); Mucus,Urine Rare /hpf; Nitrite,Urine Negative (Negative); Protein,Urine Negative (Negative); RBC,Urine 31 /hpf (0-5); Specific Gravity,Urine 1.006 (1.001-1.035); Squamous Epithelial Cell,Urine 20 /hpf (0-4); Urobilinogen,Urine <2.0 mg/dL (<2.0); WBC,Urine 71 /hpf (0-5)
== END | disposition home or self-care (01) ==
LOC: BARWHC3 09:43
PROVIDERS: ATTEND Surgery Plastic and Reconstructive Surgery
DX: Z48.815 Encounter for surgical aftercare following surgery on the digestive system (principal); E66.01 Morbid (severe) obesity due to excess calories; N23 Unspecified renal colic; R63.4 Abnormal weight loss; I11.9 Hypertensive heart disease without heart failure; E78.5 Hyperlipidemia, unspecified; M19.90 Unspecified osteoarthritis, unspecified site; E11.9 Type 2 diabetes mellitus without complications; H35.30 Unspecified macular degeneration; K57.92 Diverticulitis of intestine, part unspecified, without perforation or abscess without bleeding; K21.9 Gastro-esophageal reflux disease without esophagitis; Z68.41 Body mass index [BMI] 40.0-44.9, adult; Z98.84 Bariatric surgery status
CPT/HCPCS: 81001; 87086; 87077; 87186; G0463; 99211

== ENCOUNTER → 2018-02-11 | Outpatient (CLI) | payer MEDICARE, OTHER ==
[~2018-02-11] MED LIST changes: -LACTATED RINGERS 1,000 ML IV SCH; -LIDOCAINE 1% 20 ML VIAL (10MG/ML) FOR IV START INTRADERMA PRN; +SODIUM CHLORIDE 0.9% 1,000 ML IV SCH
--- NOTE | 2018-02-11 10:43 | P.PN ---
Subjective Progress Note Date: 02/11/18 CHIEF COMPLAINT: Status post sleeve gastrectomy HISTORY OF PRESENT ILLNESS: The patient is a 72 year old female who is status post sleeve gastrectomy 02/01/2018. No reports of nausea and vomiting. She has an adequate oral intake. She reports moderate persistent discomfort of the left upper quadrant. Seroma along the left upper quadrant also improved from yesterday. No reports of fevers or chills. She held her blood pressure medication this morning. PHYSICAL EXAM: VITAL SIGNS: Currently stable. GENERAL: Well-developed in no acute distress. HEENT: No sclera icterus. Extraocular movements grossly intact. Moist buccal mucosa. Head is atraumatic, normocephalic. Hears conversational speech. No nasal drainage. NECK: Supple without lymphadenopathy. CHEST: Non-labored respirations and equal bilateral excursions. CARDIOVASCULAR: Regular rate with regular rhythm. ABDOMEN: Soft, nondistended, incisions clean dry and intact. Palpable seroma left upper quadrant resolving. No signs of cell or some infection. MUSCULOSKELETAL: No clubbing, cyanosis or edema. NEUROLOGIC: No focal or lateralizing signs. Cranial nerves II through XII grossly intact. PSYCH: Alert and oriented to person, place and time. SKIN: Well perfused. Good skin turgor. ASSESSMENT: 1. Morbid obesity due to excess calories 2. Status post sleeve gastrectomy PLAN: 1. Additional pain medication for 3 days for with consent opiate prescription obtained 2. IV fluid hydration 2 L normal saline for dehydration 3. Wear abdominal binder for comfort
[2018-02-11 11:52] VITALS: BP 133/59; PULSE 61; TEMP 98; BMI 40.3
== END ==
LOC: BARWHC3 09:56
PROVIDERS: ATTEND Surgery Plastic and Reconstructive Surgery
DX: E86.0 Dehydration (principal); E66.01 Morbid (severe) obesity due to excess calories; Z68.41 Body mass index [BMI] 40.0-44.9, adult
CPT/HCPCS: 97802; G0463; 99211

== ENCOUNTER → 2018-02-11 | Outpatient (CLI) | payer MEDICARE, OTHER ==
[2018-02-11] MEDS: SODIUM CHLORIDE 0.9% 1,000 ML IV SCH ×2 (11:10→12:10)
[2018-02-11 11:12] VITALS: BP 133/59; PULSE 61; RESP 16; TEMP 98
== END | disposition home or self-care (01) ==
LOC: PROCWHC3 11:01
PROVIDERS: ATTEND Surgery Plastic and Reconstructive Surgery
DX: E86.0 Dehydration (principal)
CPT/HCPCS: 96360; 96361

== ENCOUNTER 2018-02-12 13:46 | Emergency (ER) | payer MEDICARE, OTHER ==
[2018-02-12 13:52] VITALS: PULSE 69
--- NOTE | 2018-02-12 14:35 | ED ---
General Adult HPI - General Chief complaint: Abdominal Pain Stated complaint: Abd pain post surgery 10 days ago Source: patient Mode of arrival: ambulatory Limitations: no limitations - History of Present Illness Initial comments: Dictation was produced using [employer] dictation software. please excuse any grammatical, word or spelling errors. Chief Complaint: 72-year-old female past medical history of diabetes, obesity presents with abdominal pain status post bariatric surgery. History of Present Illness: He said 10 days ago she had sleeve gastrectomy performed by Dr. García. She states postoperatively she's been expressing a lot of pain. Patient has any nausea vomiting. No changes in bowel habits. Patient is still on clear fluids and elixir medications. She was seen by primary surgeon yesterday which is given fluids and discharged. She reports that her pain is persistent. Denies any constitutional symptoms. The ROS documented in this emergency department record has been reviewed and confirmed by me. Those systems with pertinent positive or negative responses have been documented in the HPI. All other systems are other negative and/or noncontributory. - Related Data Previous Rx's Medication Instructions Recorded HYDROcodone/APAP 7.5-325MG [[place] 1 tab PO Q4H PRN 3 Days #18 tab 02/02/18 7.5-325] Allergies Allergy/AdvReac Type Severity Reaction Status Date / Time Penicillins Allergy Severe Anaphylaxis Verified 02/12/18 14:11 Review of Systems ROS Statement: Those systems with pertinent positive or pertinent negative responses have been documented in the HPI. ROS Other: All systems not noted in ROS Statement are negative. Past Medical History Past Medical History: Diabetes Mellitus, Eye Disorder, Hypertension, Osteoarthritis (OA) Additional Past Medical History / Comment(s): DIET CONTROLLED- DIABETIC, DIVERTICULITIS, LT EYE MAC. DEGEN. History of Any Multi-Drug Resistant Organisms: None Reported Past Surgical History: Bariatric Surgery, Cholecystectomy, Orthopedic Surgery Additional Past Surgical History / Comment(s): PAIN CLINIC INJECTIONS, RIGHT SHOULDER SX, COLONOSCOPY, EGD sleeve gastrectomy 02-01-18 Past Anesthesia/Blood Transfusion Reactions: No Reported Reaction Past Psychological History: No Psychological Hx Reported Smoking Status: Former smoker Past Alcohol Use History: None Reported Past Drug Use History: None Reported - Past Family History Mother Family Medical History: CVA/TIA Father Family Medical History: Myocardial Infarction ([place]) General Exam - General Exam Comments Initial Comments: PHYSICAL EXAM: General Impression: Alert and oriented x3, not in acute distress HEENT: Normocephalic atraumatic, extra-ocular movements intact, pupils equal and reactive to light bilaterally, mucous membranes moist. Cardiovascular: Heart regular rate and rhythm, S1&S2 audible, no murmurs, rubs or gallops Chest: Lungs clear to auscultation bilaterally, no rhonchi, no wheeze, no rales Abdomen: Bowel sounds present, abdomen soft, mild tenderness of the abdomen especially around the surgical sites. Surgical sites are clean dry and intact without any erythema or drainage. Musculoskeletal: Pulses present and equal in all extremities, no peripheral edema Motor: Power 5/5 bilaterally, no focal deficits noted Neurological: CN II-XII grossly intact, no focal motor or sensory deficits noted Skin: Intact with no visualized rashes Psych: Normal affect and mood Limitations: no limitations Course Vital Signs 02/12/18 13:49 Temperature 97.3 F L Pulse Rate 69 Respiratory 18 Rate Blood Pressure 132/68 O2 Sat by Pulse 98 Oximetry Medical Decision Making - Medical Decision Making ED course: 72-year-old with female presents with postoperative pain status post sleeve gastrectomy. Vital signs upon arrival are within acceptable limits. Discussed patient case with patient's primary surgeon who requests CT without contrast. Patient appears well. No clinical suspicion of any serious surgical issue. Labs and imaging studies were obtained per request by primary surgeon and found to be normal. Patient clear for discharge. Patient told to get her pain medications at the office. Patient otherwise told to return with any worsening symptoms of abdominal pain. She especially she will go for symptoms of fever, chills or night sweats. She was stable for discharge. - Lab Data Result diagrams: 02/12/18 14:06 02/12/18 14:06 Lab Results 02/12/18 02/12/18 Range/Units 14:06 14:06 WBC 5.8 (3.8-10.6) k/uL RBC 4.63 (3.80-5.40) m/uL Hgb 13.2 (11.4-16.0) gm/dL Hct 41.0 (34.0-46.0) % MCV 88.6 (80.0-100.0) fL MCH 28.5 (25.0-35.0) pg MCHC 32.2 (31.0-37.0) g/dL RDW 14.0 (11.5-15.5) % Plt Count 166 (150-450) k/uL Neutrophils % 70 % Lymphocytes % 18 % Monocytes % 5 % Eosinophils % 4 % Basophils % 0 % Neutrophils # 4.1 (1.3-7.7) k/uL Lymphocytes # 1.0 (1.0-4.8) k/uL Monocytes # 0.3 (0-1.0) k/uL Eosinophils # 0.2 (0-0.7) k/uL Basophils # 0.0 (0-0.2) k/uL Sodium 142 (137-145) mmol/L Potassium 4.7 (3.5-5.1) mmol/L Chloride 108 H (98-107) mmol/L Carbon Dioxide 24 (22-30) mmol/L Anion Gap 10 mmol/L BUN 14 (7-17) mg/dL Creatinine 0.78 (0.52-1.04) mg/dL Est GFR (CKD-EPI)AfAm 87 (>60 ml/min/1.73 sqM) Est GFR (CKD-EPI)NonAf 75 (>60 ml/min/1.73 sqM) Glucose 86 (74-99) mg/dL Calcium 9.3 (8.4-10.2) mg/dL Total Bilirubin 0.5 (0.2-1.3) mg/dL AST 35 (14-36) U/L ALT 42 (9-52) U/L Alkaline Phosphatase 119 (38-126) U/L Total Protein 6.9 (6.3-8.2) g/dL Albumin 3.9 (3.5-5.0) g/dL Lipase 99 (23-300) U/L Disposition Clinical Impression: Abdominal pain Disposition: HOME SELF-CARE Condition: Good Instructions: Abdominal Pain (ED) Is patient prescribed a controlled substance at d/c from ED?: No Referrals: Nalini Munguia MD [Primary Care Provider] - 1-2 days Time of Disposition: 16:33
[2018-02-12 14:42] LABS: Basophils % (A) 0 %; Eosinophils # (A) 0.2 k/uL (0-0.7); Eosinophils % (A) 4 %; HGB 13.2 gm/dL (11.4-16.0); Lymphocytes % (A) 18 %; MCH 28.5 pg (25.0-35.0); MCHC 32.2 g/dL (31.0-37.0); MCV 88.6 fL (80.0-100.0); Mean Platelet Volume 7.8; Monocytes # (A) 0.3 k/uL (0-1.0); Monocytes % (A) 5 %; Neutrophils # (A) 4.1 k/uL (1.3-7.7); Neutrophils % (A) 70 %; Platelet Count 166 k/uL (150-450); RBC 4.63 m/uL (3.80-5.40); WBC 5.8 k/uL (3.8-10.6)
[2018-02-12 14:57] LABS: Albumin 3.9 g/dL (3.5-5.0); Calcium 9.3 mg/dL (8.4-10.2); Potassium 4.7 mmol/L (3.5-5.1); Total Bilirubin 0.5 mg/dL (0.2-1.3); Total Protein 6.9 g/dL (6.3-8.2)
--- NOTE | 2018-02-12 15:50 | CT ---
EXAMINATION TYPE: CT abdomen pelvis wo con DATE OF EXAM: 02/12/2018 COMPARISON: Prior CT 01/12/2016 HISTORY: Pain, post op 10 days from bariatric surgery CT DLP: 931.6 mGycm Automated exposure control for dose reduction was used. TECHNIQUE: Helical acquisition of images from the lung bases through the pelvis. FINDINGS: There has been interval gastric sleeve surgery. Increased density at focal areas along the anterior abdominal wall possibly related to patient's surgery. Lack of intravenous contrast could co mpromise sensitivity. LUNG BASES: No significant abnormality is appreciated. AORTA: No significant abnormality is appreciated. LIVER/GB: Gallbladder is absent. Liver shows no mass. PANCREAS: No significant interval change is seen. Surgical clip adjacent to the body of the pancreas as on prior SPLEEN: No significant abnormality is seen. ADRENALS: No significant abnormality is seen. KIDNEYS: No significant abnormality is seen. REPRODUCTIVE ORGANS: No significant abnormality is seen. URINARY BLADDER: No significant abnormality is seen. BOWEL: Probable duodenal diverticulum is again noted. Appendix shows luminal high attenuation, there is no inflammatory change. High attenuation present within the colon may be due to radio dense medic ations, correlate. Extensive diverticular change noted in the sigmoid colon. Surgical clip present in the pelvis as on prior. FREE AIR: No Free Air is visible. ASCITES: None visible. PELVIC ADENOPATHY: None visualized. RETROPERITONEAL ADENOPATHY: No Retroperitoneal Adenopathy visible. OSSEOUS STRUCTURES: No significant abnormality is seen. IMPRESSION: POSTOP CHANGES. NONCONTRAST EXAM. Extensive diverticulosis.
[2018-02-12 16:51] VITALS: BP 138/74; RESP 16; TEMP 97.8
== END 2018-02-12 16:49 | disposition home or self-care (01) ==
LOC: EC 13:46
DX: G89.18 Other acute postprocedural pain (principal); R10.9 Unspecified abdominal pain; E11.9 Type 2 diabetes mellitus without complications; Z87.891 Personal history of nicotine dependence; Z88.0 Allergy status to penicillin; Z98.84 Bariatric surgery status; Z90.49 Acquired absence of other specified parts of digestive tract
CPT/HCPCS: 36415; 74176; 80053; 83690; 85025; 99284

== ENCOUNTER → 2018-02-17 | Outpatient (CLI) | payer MEDICARE, OTHER ==
[2018-02-17 15:47] VITALS: BP 174/80; PULSE 69; TEMP 97.8; BMI 39.6
--- NOTE | 2018-02-17 15:52 | P.PN ---
Subjective Progress Note Date: 02/17/18 DATE: 02/17/2018 CHIEF COMPLAINT: Status post sleve gastrectomy HISTORY OF PRESENT ILLNESS: Gracie Ybarra is a 72-year-old female is status post sleeve gastrectomy 02/01/2018. She is 2 weeks out. She went to the emergency room for persistent abdominal pain as she did not safety and occupational health manager her pain prescription. She still has pain along the left upper abdomen. She also reports past history of shingles with similar pain which lasted over 3 months. She has not seen a primary care provider. Today she comes in weighing 231 pounds from 245 pounds, 3 weeks ago. She has lost 15 pound in 3 weeks, last visit. At her present height of 5 feet 4 inches , her body mass index was 42.9, now 39.7. She has lost 18 pounds lifetime. Percent excess weight loss is 18 %. PHYSICAL EXAM: VITAL SIGNS: Height 5 foot 4 inches, weight 231 pounds. BMI 39.7 Vital Signs Temp 97.8 F 02/17/18 15:42 Pulse 69 02/17/18 15:42 Resp BP 174/80 02/17/18 15:42 Pulse Ox GENERAL: Well-developed female in no acute distress. HEENT: No scleral icterus. Extraocular movements grossly intact. Head is normocephalic. Hears conversational speech. NECK: Supple without lymphadenopathy. CHEST: Nonlabored respirations with equal bilateral excursions. CARDIOVASCULAR: Regular rate. Distal 2+ pulses. ABDOMEN: Obese, soft, nondistended. No infection. No hernia. MUSCULOSKELETAL: No clubbing, cyanosis, or edema. NEURO: No focal or lateralizing signs. Cranial nerves 2 through 12 grossly within normal limits. PSYCH: Appropriate affect. Alert and oriented to person, place and time. SKIN: Well perfused. Good skin turgor. STUDIES: CT of the abdomen reviewed. ASSESSMENT: 1. Morbid obesity excess calories, BMI 42.8 to 39.7 2. Hypertensive heart disease 3. Hyperlipidemia 4. Osteoarthritis 5. Diabetes type 2, [id number] 6. Macular degeneration 7. Diverticulitis 8. Gastroesophageal reflux disease 9. 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 Recommend start of ibuprofen with omeprazole 2. Muscle relaxant prescribed for persistent left upper quadrant pain. Objective - Vital Signs Vital signs: Vital Signs Temp 97.8 F 02/17/18 15:42 Pulse 69 02/17/18 15:42 Resp BP 174/80 02/17/18 15:42 Pulse Ox Intake & Output 02/16/18 02/17/18 02/17/18 18:59 06:59 18:59 Weight 104.78 kg
== END | disposition home or self-care (01) ==
LOC: BARWHC3 14:59
PROVIDERS: ATTEND Surgery Plastic and Reconstructive Surgery
DX: Z48.815 Encounter for surgical aftercare following surgery on the digestive system (principal); E66.01 Morbid (severe) obesity due to excess calories; I11.9 Hypertensive heart disease without heart failure; E78.5 Hyperlipidemia, unspecified; M19.90 Unspecified osteoarthritis, unspecified site; E11.9 Type 2 diabetes mellitus without complications; K21.9 Gastro-esophageal reflux disease without esophagitis; H35.30 Unspecified macular degeneration; K57.92 Diverticulitis of intestine, part unspecified, without perforation or abscess without bleeding; G62.9 Polyneuropathy, unspecified; Z98.84 Bariatric surgery status; Z68.39 Body mass index [BMI] 39.0-39.9, adult
CPT/HCPCS: 99211

== ENCOUNTER → 2018-02-24 | Outpatient (CLI) | payer MEDICARE, OTHER ==
[2018-02-24 16:21] VITALS: BP 169/72; PULSE 53; RESP 18; TEMP 98.2; BMI 39.6
--- NOTE | 2018-02-24 16:33 | P.PN ---
Subjective Progress Note Date: 02/24/18 DATE: 02/24/2018 CHIEF COMPLAINT: Status post sleve gastrectomy HISTORY OF PRESENT ILLNESS: Gracie Ybarra is a 72-year-old female is status post sleeve gastrectomy 02/01/2018. She is 3 weeks out. She reports previous shingles along the right upper quadrant. She did not tolerate ibuprofen and muscle relaxant. She has become dependent on narcotics. Today she comes in weighing 231 pounds unchanged from 1 week ago. At her present height of 5 feet 4 inches, her body mass index was 42.9, now 39.7. She has lost 18 pounds lifetime. Percent excess weight loss is 18 %. PHYSICAL EXAM: VITAL SIGNS: Height 5 foot 4 inches, weight 231 pounds. BMI 39.7 Vital Signs Temp 98.2 F 02/24/18 16:18 Pulse 53 L 02/24/18 16:18 Resp 18 02/24/18 16:18 BP 169/72 02/24/18 16:18 Pulse Ox 98 02/24/18 16:18 GENERAL: Well-developed female in no acute distress. HEENT: No scleral icterus. Extraocular movements grossly intact. Head is normocephalic. Hears conversational speech. NECK: Supple without lymphadenopathy. CHEST: Nonlabored respirations with equal bilateral excursions. CARDIOVASCULAR: Regular rate. Distal 2+ pulses. ABDOMEN: Hyperesthesia of the right upper quadrant including left upper quadrant. No hernia. No infection. MUSCULOSKELETAL: No clubbing, cyanosis, or edema. NEURO: No focal or lateralizing signs. Cranial nerves 2 through 12 grossly within normal limits. PSYCH: Appropriate affect. Alert and oriented to person, place and time. SKIN: Well perfused. Good skin turgor. ASSESSMENT: 1. Morbid obesity excess calories, BMI 42.8 to 39.7 2. Hypertensive heart disease 3. Hyperlipidemia 4. Osteoarthritis 5. Diabetes type 2, [id number] 6. Macular degeneration 7. Diverticulitis 8. Gastroesophageal reflux disease 9. 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 Referral to pain specialist for pain medication adjustment and possible nerve block for history of shingles 2. Alternative for pain described. 3. May try neurontin. 4. [place] 7.5 prescribed for 3 days. Objective - Vital Signs Vital signs: Vital Signs Temp 98.2 F 02/24/18 16:18 Pulse 53 L 02/24/18 16:18 Resp 18 02/24/18 16:18 BP 169/72 02/24/18 16:18 Pulse Ox 98 02/24/18 16:18 Intake & Output 02/23/18 02/24/18 02/24/18 18:59 06:59 18:59 Weight 104.78 kg
== END ==
LOC: BARWHC3 14:57
PROVIDERS: ATTEND Surgery Plastic and Reconstructive Surgery
DX: Z48.815 Encounter for surgical aftercare following surgery on the digestive system (principal); E66.01 Morbid (severe) obesity due to excess calories; I11.9 Hypertensive heart disease without heart failure; E78.5 Hyperlipidemia, unspecified; E11.9 Type 2 diabetes mellitus without complications; K21.9 Gastro-esophageal reflux disease without esophagitis; M19.90 Unspecified osteoarthritis, unspecified site; H35.30 Unspecified macular degeneration; K57.92 Diverticulitis of intestine, part unspecified, without perforation or abscess without bleeding; G62.9 Polyneuropathy, unspecified; Z98.84 Bariatric surgery status; Z86.19 Personal history of other infectious and parasitic diseases; Z68.39 Body mass index [BMI] 39.0-39.9, adult; Z79.891 Long term (current) use of opiate analgesic
CPT/HCPCS: 99211

== ENCOUNTER → 2018-03-04 | Outpatient (CLI) | payer MEDICARE, OTHER ==
--- NOTE | 2018-03-04 14:01 | XR ---
EXAMINATION TYPE: XR abdomen complete w decub DATE OF EXAM: 03/04/2018 COMPARISON: 01/12/2016 HISTORY: 72-year-old female acute postprocedural pain, bariatric surgery TECHNIQUE: Supine, upright, and left side down lateral decubitus views of the abdomen are obtained. FINDINGS: Lung bases are clear. No evidence for free intraperitoneal air. Scattered moderate stool particularly on the right side of the abdomen. No dilated small bowel or differential air-fluid levels. Cholecystectomy clips. Dense atherosclerotic calcifications throughout the abdominal aorta. IMPRESSION: No evidence for bowel obstruction or free air. Moderate stool burden.
== END ==
LOC: RADXRMAIN 12:28
PROVIDERS: ATTEND Nurse Practitioner
DX: G89.18 Other acute postprocedural pain (principal); Z98.84 Bariatric surgery status
CPT/HCPCS: 74021

== ENCOUNTER → 2018-05-05 | Outpatient (CLI) | payer MEDICARE, OTHER ==
[2018-05-05 14:42] VITALS: BP 137/84; PULSE 76; RESP 16; TEMP 98; BMI 36.2
--- NOTE | 2018-05-05 14:42 | P.PN ---
Subjective Progress Note Date: 05/05/18 HPI: She has pre-existing epigastric pain. She has severe GERD not controlled with medications. She has aspiration in the past 3 weeks. Protein is 60 grams. She is 3 months. ABDOMEN: Soft ASSESSMENT: 1. Morbid obesity PLAN: 1. Bariatric labs 2. Upper endoscopy for hiatal hernia evaluation. 3. Dietary guidelines 4. Manometry later for esophageal spasms to be reviewed. 5. Omeprazole for GERD
[2018-05-05 16:56] LABS: HCT 45.9 % (34.0-46.0); HGB 14.2 gm/dL (11.4-16.0); MCH 28.1 pg (25.0-35.0); MCHC 30.9 g/dL (31.0-37.0); MCV 90.9 fL (80.0-100.0); Mean Platelet Volume 8.1; Platelet Count 187 k/uL (150-450); RBC 5.04 m/uL (3.80-5.40); RDW 14.1 % (11.5-15.5)
[2018-05-05 17:05] LABS: Partial Thromboplastin Time 26.4 sec (22.0-30.0); Prothrombin Time 10.7 sec (9.0-12.0)
[2018-05-06 01:32] LABS: Iron Saturation 13.68 (12.00-45.00)
[2018-05-06 01:42] LABS: Folate, Serum 14.1 ng/mL
[2018-05-06 01:53] LABS: Parathyroid Hormone Intact 46.5 pg/mL (14.0-72.0)
[2018-05-06 02:10] LABS: Albumin 4.6 g/dL (3.80-4.90); Albumin/Globulin Ratio 1.84 (1.60-3.17); Anion Gap 13.1 mmol/L (4.00-12.00); Carbon Dioxide 22.9 mmol/L (21.6-31.8); Globulin 2.5 g/dL (1.6-3.3); LDL Cholesterol,Calculated 81.6 mg/dL (0.0-131.0); Phosphorus 4.3 mg/dL (2.4-5.1); Total Bilirubin 0.5 mg/dL (0.3-1.2); Total Protein 7.1 g/dL (6.2-8.2); VLDL Calculation 19.4 mg/dL (5.00-40.00)
[2018-05-06 05:00] LABS: Hemoglobin A1C 5.6 % (4.0-6.0)
[2018-05-06 14:55] LABS: Zinc, Serum 80 ug/dL (60-130)
[2018-05-07 06:14] LABS: Vitamin A 43 ug/dL (38-106)
[2018-05-07 10:09] LABS: Vit B1(Thiamine) 80 ug/L (38-122)
[2018-05-08 13:22] LABS: Selenium 91 mcg/L (63-160)
== END | disposition home or self-care (01) ==
LOC: BARWHC3 13:48
PROVIDERS: ATTEND Surgery Plastic and Reconstructive Surgery
DX: E66.01 Morbid (severe) obesity due to excess calories (principal); Z68.36 Body mass index [BMI] 36.0-36.9, adult
CPT/HCPCS: 84255; 84134; 84425; 80061; 80053; 82607; 82728; 82525; 82746; 83540; 83550; 83735; 84100; 84443; 84590; 84630; 85027; 85610; 85730; 82306; 83970; 83036; 97803; 36415; G0463; 99211

== ENCOUNTER → 2018-05-05 | Outpatient (CLI) | payer MEDICARE, OTHER | END | disposition home or self-care (01) | LOC: LABWHC1 16:12 | PROVIDERS: ATTEND Surgery Plastic and Reconstructive Surgery | DX: Z53.9 Procedure and treatment not carried out, unspecified reason (principal) ==

== ENCOUNTER 2018-06-21 09:40 | Day surgery (SDC) | payer MEDICARE, OTHER ==
[2018-06-16 16:08] VITALS: BMI 34.3
--- NOTE | 2018-06-20 09:17 | P.GSHP ---
History of Present Illness H&P Date: 06/21/18 CHIEF COMPLAINT: GERD HISTORY OF PRESENT ILLNESS: The patient is a 73-year-old female who presents reports gastroesophageal reflux disease. Upper endoscopy was offered for further evaluation and management. PAST MEDICAL HISTORY: Please see list. PAST SURGICAL HISTORY: Please see list. MEDICATIONS: Please see list. ALLERGIES: Please see list. SOCIAL HISTORY: No illicit drug use FAMILY HISTORY: No reports of Crohn disease or ulcerative colitis. REVIEW OF ORGAN SYSTEMS: CONSTITUTIONAL: No reports of fevers or chills. GI: Denies any blood in stools or constipation. PHYSICAL EXAM: VITAL SIGNS: Stable GENERAL: Well-developed and pleasant in no acute distress. HEENT: No scleral icterus. Extraocular movements grossly intact. Moist buccal mucosa. NECK: Supple without lymphadenopathy. CHEST: Unlabored respirations. Equal bilateral excursions. CARDIOVASCULAR: Regular rate and rhythm. Distal 2+ pulses. ABDOMEN: Soft, nondistended. MUSCULOSKELETAL: No clubbing, cyanosis, or edema. ASSESSMENT: 1. Gastroesophageal reflux disease PLAN: 1. Recommend proceeding with an upper endoscopy Past Medical History Past Medical History: Eye Disorder, Hypertension, Osteoarthritis (OA) Additional Past Medical History / Comment(s): Hx. of DIVERTICULITIS, LT EYE MAC. DEGEN. HTN resolved after surgery. History of Any Multi-Drug Resistant Organisms: None Reported Past Surgical History: Bariatric Surgery, Cholecystectomy, Orthopedic Surgery, Tubal Ligation Additional Past Surgical History / Comment(s): PAIN CLINIC INJECTIONS, RIGHT SHOULDER SX, COLONOSCOPY, EGD sleeve gastrectomy 02-01-18 Past Anesthesia/Blood Transfusion Reactions: No Reported Reaction Smoking Status: Former smoker - Past Family History Mother Family Medical History: CVA/TIA Father Family Medical History: Myocardial Infarction ([place]) Medications and Allergies Home Medications Medication Instructions Recorded Confirmed Type Omeprazole 40 mg PO DAILY #90 capsule. 05/05/18 06/16/18 Rx Cholecalciferol (Vitamin D3) 1 tab PO DAILY 05/06/18 06/16/18 History [Vitamin D3] Multivitamins, Thera [Multivitamin 1 tab PO DAILY 05/06/18 06/16/18 History (formulary)] Allergies Allergy/AdvReac Type Severity Reaction Status Date / Time Penicillins Allergy Severe Anaphylaxis Verified 06/16/18 15:57
[~2018-06-21 09:40] MED LIST changes: +LACTATED RINGERS 1,000 ML IV SCH; +LIDOCAINE 1% 20 ML VIAL (10MG/ML) FOR IV START INTRADERMA PRN; -SODIUM CHLORIDE 0.9% 1,000 ML IV SCH
[2018-06-21 10:01] VITALS: TEMP 98
[2018-06-21] MEDS ORDERED: LACTATED RINGERS 1,000 ML IV ONE (10:01)
[2018-06-21] MEDS ORDERED: LIDOCAINE 1% 20 ML VIAL (10MG/ML) FOR IV START INTRADERMA ONE (10:01)
[2018-06-21] MEDS ORDERED: ESMOLOL 100 MG/10 ML VIAL ONE (11:05)
[2018-06-21] MEDS ORDERED: LIDOCAINE 1% INJ 10MG/ML (20 ML MDV) ONE (11:05)
[2018-06-21] MEDS ORDERED: PROPOFOL 10 MG/ML 20 ML VIAL IV ONE (11:05)
[2018-06-21] MEDS ORDERED: METOPROLOL TARTRATE 5 MG/5 ML VIAL IVP ONE (11:05)
--- NOTE | 2018-06-21 11:40 | P.PCN ---
Date of Procedure: 06/21/18 Description of Procedure: PREOPERATIVE DIAGNOSIS: Status post sleeve gastrectomy. Gastroesophageal reflux disease. Epigastric abdominal pain. POSTOPERATIVE DIAGNOSIS: Status post sleeve gastrectomy. Gastroesophageal reflux disease. Epigastric abdominal pain. Chronic superficial gastritis. OPERATION: Esophagogastroduodenoscopy with cold forceps biopsies along the antrum. SURGEON: Nina Mckeon MD ANESTHESIA: MAC. INDICATIONS: The patient is a 73-year-old female who presents with a history of sleeve gastrectomy with abdominal pain. Benefits and risks of the procedure were described. Informed consent was obtained. DESCRIPTION: The patient was brought into the endoscopy suite and laid in the left lateral decubitus position. An Olympus gastroscope was passed along the posterior oropharynx down to the distal esophagus where the squamocolumnar junction was at 40 centimeters from the incisors. The stomach was entered and sleeve reservoir was appropriate size without dilation or ability to retroflex. Chronic gastritis albeit mild was found along the antrum with cold biopsies obtained. The first through third portion of the duodenum was examined and unremarkable. No distortion of the gastric sleeve was identified. The stomach was desufflated. The patient tolerated the procedure well. FINDINGS: No acute ulceration found along her sleeve. No corkscrewing sleeve gastrectomy. Squamocolumnar junction at 40 cm from the incisors. Diaphragmatic hiatus at 40 cm. Normal size gastric reservoir with prior history of sleeve gastrectomy LA grade A erosive esophagitis. No active duodenitis. Chronic gastritis. RECOMMENDATIONS: Upper endoscopy as needed. Plan - Discharge Summary Discharge Rx Participant: Yes New Discharge Prescriptions: New Omeprazole 40 mg PO DAILY #90 capsule. No Action Omeprazole 40 mg PO DAILY #90 capsule. Multivitamins, Thera [Multivitamin (formulary)] 1 tab PO DAILY Cholecalciferol (Vitamin D3) [Vitamin D3] 1 tab PO DAILY Discharge Medication List Omeprazole 40 mg PO DAILY #90 capsule. 05/05/18 [Rx] Cholecalciferol (Vitamin D3) [Vitamin D3] 1 tab PO DAILY 05/06/18 [History] Multivitamins, Thera [Multivitamin (formulary)] 1 tab PO DAILY 05/06/18 [History] Omeprazole 40 mg PO DAILY #90 capsule. 06/21/18 [Rx] Follow up Appointment(s)/Referral(s): [facility],. [NON-STAFF] - 07/07/18 Patient Instructions/Handouts: Gastritis (DC) Discharge Disposition: HOME SELF-CARE
[2018-06-21 11:52] VITALS: BP 141/70; PULSE 59; RESP 16
== END 2018-06-21 12:13 | disposition home or self-care (01) ==
LOC: ORWHC2ENDO 09:40
PROVIDERS: ATTEND Surgery Plastic and Reconstructive Surgery
DX: K29.30 Chronic superficial gastritis without bleeding (principal); K22.10 Ulcer of esophagus without bleeding; K21.9 Gastro-esophageal reflux disease without esophagitis; I10 Essential (primary) hypertension; M19.90 Unspecified osteoarthritis, unspecified site; Z90.3 Acquired absence of stomach [part of]; Z98.84 Bariatric surgery status; Z87.891 Personal history of nicotine dependence; Z79.899 Other long term (current) drug therapy; Z88.0 Allergy status to penicillin; Z90.49 Acquired absence of other specified parts of digestive tract
CPT/HCPCS: 88305; 43239; J2001; J2704

== ENCOUNTER → 2018-07-07 | Outpatient (CLI) | payer MEDICARE, OTHER ==
--- NOTE | 2018-07-07 13:59 | P.PN ---
Subjective Progress Note Date: 07/07/18 HPI: She reports improvement of her GERD. She is taking Zantac. She reports gnawing pain with eating more. She takes cottage cheese and yogurt. She reports spasm of the abdomen. ABDOMEN: Nondistended. ASSESSMENT: 1. Morbid obesity 2. Irritable bowel syndrome PLAN: 1. Recommend trial off Zantac 2. May need Bentyl 3. She has high risk of lower esophageal spasms. 4. [facility] reviewed above expectations for surgery confirmed.
[2018-07-07 14:13] VITALS: BP 142/65; PULSE 63; TEMP 97.8; BMI 35.1
== END ==
LOC: BARWHC3 13:13
PROVIDERS: ATTEND Surgery Plastic and Reconstructive Surgery
DX: E66.01 Morbid (severe) obesity due to excess calories (principal); K21.9 Gastro-esophageal reflux disease without esophagitis; R25.2 Cramp and spasm; K58.9 Irritable bowel syndrome, unspecified
CPT/HCPCS: 99211

== ENCOUNTER → 2018-11-17 | Outpatient (CLI) | payer MEDICARE, OTHER ==
--- NOTE | 2018-11-17 16:28 | P.PN ---
Subjective Progress Note Date: 11/17/18 She has troubles with flavored water and caused her abdominal pain and gave her heratburn. She is more active and is swimming. She is drinking coffee. No more GERD. She is off blood pressure medications. She is 9 months. She was 263 pound her highest. She is ahead with expectations of her weight loss. She is no longer using a walker. She is off pain pills for her back and it is almost all gone.
[2018-11-17 16:42] VITALS: BMI 32.8
[2018-11-17 17:44] LABS: HCT 40.8 % (34.0-46.0); MCH 29.6 pg (25.0-35.0); MCHC 31.9 g/dL (31.0-37.0); MCV 92.9 fL (80.0-100.0); Mean Platelet Volume 7.3; Platelet Count 164 k/uL (150-450); RBC 4.39 m/uL (3.80-5.40); RDW 13.6 % (11.5-15.5); WBC 6.2 k/uL (3.8-10.6)
[2018-11-17 17:51] LABS: Partial Thromboplastin Time 26.7 sec (22.0-30.0); Prothrombin Time 10.4 sec (9.0-12.0)
[2018-11-18 00:36] LABS: Iron Saturation 16.72 (12.00-45.00)
[2018-11-18 00:45] LABS: Ferritin 146.2 ng/mL (10.0-291.0); Vitamin D 25 Hydroxy 49.4 ng/mL (30.0-100.0)
[2018-11-18 01:05] LABS: African American GFR (CKD) 72.5 (60.0-200.0); Albumin 4.2 g/dL (3.80-4.90); Albumin/Globulin Ratio 1.75 (1.60-3.17); Anion Gap 10.4 mmol/L (4.00-12.00); BUN/Creat Ratio 27.78 Ratio (12.00-20.00); Calcium 9.2 mg/dL (8.7-10.3); Carbon Dioxide 26.6 mmol/L (21.6-31.8); Chol/HDL Ratio 2.75; Globulin 2.4 g/dL (1.6-3.3); LDL Cholesterol,Calculated 86.6 mg/dL (0.0-131.0); Phosphorus 4.2 mg/dL (2.4-5.1); Total Bilirubin 0.4 mg/dL (0.3-1.2); Total Protein 6.6 g/dL (6.2-8.2); VLDL Calculation 20.4 mg/dL (5.00-40.00)
[2018-11-18 01:06] LABS: Folate, Serum >24.0 ng/mL
[2018-11-18 01:14] LABS: Hemoglobin A1C 5.6 % (4.0-6.0)
[2018-11-18 12:41] LABS: Zinc, Serum 80 ug/dL (60-130)
[2018-11-19 07:25] LABS: Vitamin A 43 ug/dL (38-106)
[2018-11-19 07:52] VITALS: BP 146/65; PULSE 63; TEMP 97.9
== END ==
LOC: BARWHC3 14:47
PROVIDERS: ATTEND Surgery Plastic and Reconstructive Surgery
DX: R10.9 Unspecified abdominal pain (principal); E66.01 Morbid (severe) obesity due to excess calories; E21.1 Secondary hyperparathyroidism, not elsewhere classified; E89.1 Postprocedural hypoinsulinemia; D50.9 Iron deficiency anemia, unspecified; K90.9 Intestinal malabsorption, unspecified; E44.0 Moderate protein-calorie malnutrition; E55.9 Vitamin D deficiency, unspecified; K74.1 Hepatic sclerosis; N19 Unspecified kidney failure; K50.90 Crohn's disease, unspecified, without complications; R12 Heartburn
CPT/HCPCS: 84255; 84134; 84425; 80061; 80053; 82607; 82728; 82525; 82746; 83540; 83550; 83735; 84100; 84443; 84590; 84630; 85027; 85610; 85730; 82306; 83970; 83036; 97803; 36415; G0463; 99211

== ENCOUNTER → 2019-02-02 | Outpatient (CLI) | payer MEDICARE, OTHER ==
[2019-02-02 13:44] VITALS: BP 143/63; PULSE 63; RESP 16; TEMP 98.4; BMI 33.6
--- NOTE | 2019-02-02 14:11 | P.PN ---
Subjective Progress Note Date: 02/02/19 DATE: 02/02/2019 CHIEF COMPLAINT: Status post sleeve gastrectomy HISTORY OF PRESENT ILLNESS: Gracie Ybarra is a 73-year-old female is status post sleeve gastrectomy 02/01/2018. She is 1 year out. She comes in frustrated with her weight gain. Her journeyman painter placed her on aspirin. She explains she has w eight gain for the holidays as she cannot walk and is eating bread. She has gained 5 pounds in 2 months. At her present height of 5 feet 4 inches, her ideal body weight is 144 pounds. Her highest weight is 263 pounds, BMI 45.2. Today she comes in weighing 196 pounds from 191 pounds, 2 months ago. She has gained 5 pounds in 2 months. Her body mass index was 45.2, now 33.6. She has lost 67 pounds lifetime. Percent excess weight loss is 57 %. PHYSICAL EXAM: VITAL SIGNS: Height 5 foot 4 inches, weight 196 pounds. BMI 33.6 Vital Signs Temp 98.4 F 02/02/19 13:38 Pulse 63 02/02/19 13:38 Resp 16 02/02/19 13:38 BP 143/63 02/02/19 13:38 Pulse Ox GENERAL: Well-developed female in no acute distress. HEENT: No scleral icterus. Extraocular movements grossly intact. Head is normocephalic. Hears conversational speech. NECK: Supple without lymphadenopathy. CHEST: Nonlabored respirations with equal bilateral excursions. CARDIOVASCULAR: Regular rate. Distal 2+ pulses. ABDOMEN: Soft, nontender. Nondistended. MUSCULOSKELETAL: No clubbing, cyanosis, or edema. NEURO: No focal or lateralizing signs. Cranial nerves 2 through 12 grossly within normal limits. PSYCH: Appropriate affect. Alert and oriented to person, place and time. SKIN: Well perfused. Good skin turgor. LABS: LFTs are elevated ASSESSMENT: 1. Morbid obesity excess calories, BMI 42.8 to 33.6 2. Hypertensive heart disease 3. Hyperlipidemia 4. Osteoarthritis 5. Diabetes type 2, [id number] 6. Macular degeneration 7. Diverticulitis 8. Gastroesophageal reflux disease 9. Status post sleeve gastrectomy PLAN: 1. Recommend 2 week protein diet. Objective - Vital Signs Vital signs: Vital Signs Temp 98.4 F 02/02/19 13:38 Pulse 63 02/02/19 13:38 Resp 16 02/02/19 13:38 BP 143/63 02/02/19 13:38 Pulse Ox Intake & Output 02/01/19 02/02/19 02/02/19 18:59 06:59 18:59 Weight 88.904 kg
== END | disposition home or self-care (01) ==
LOC: BARWHC3 13:00
PROVIDERS: ATTEND Surgery Plastic and Reconstructive Surgery
DX: Z48.815 Encounter for surgical aftercare following surgery on the digestive system (principal); E66.01 Morbid (severe) obesity due to excess calories; Z68.33 Body mass index [BMI] 33.0-33.9, adult; I11.9 Hypertensive heart disease without heart failure; E78.5 Hyperlipidemia, unspecified; M19.90 Unspecified osteoarthritis, unspecified site; E11.9 Type 2 diabetes mellitus without complications; H35.30 Unspecified macular degeneration; K57.92 Diverticulitis of intestine, part unspecified, without perforation or abscess without bleeding; K21.9 Gastro-esophageal reflux disease without esophagitis
CPT/HCPCS: 99211

== ENCOUNTER 2019-04-13 13:52 | Emergency (ER) | payer MEDICARE, OTHER ==
[2019-04-13 13:57] VITALS: TEMP 97.5
--- NOTE | 2019-04-13 14:54 | ED ---
General Adult HPI - General Chief complaint: Recheck/Abnormal Lab/Rx Stated complaint: nausea/dizziness Time Seen by Provider: 04/13/19 13:55 Source: patient, RN notes reviewed, old records reviewed Mode of arrival: ambulatory Limitations: no limitations - History of Present Illness Initial comments: This is a 73-year-old female presents emergency Department complaining that she got dizzy at physical therapy this morning. Patient states she found it difficult to walk so she had to sit down. Patient states she was nauseated. Patient states anytime she got up she felt like the room was moving and she had grabbed onto something. Patient went to her doctor's office and then they sent her to the pharmacology teacher's office and cardiology Center to us. Patient states she has no chest pain difficulty breathing or shortness of breath. She does complain of a headache but no numbness or weakness. Patient states the headache is fairly typical for her. Patient denies any palpitations. Patient denies any abdominal pain. Patient denies any vomiting or diarrhea. Patient denies any back pain. Patient denies any recent fever chills or cough per patient denies any leg swelling or calf tenderness. - Related Data Home Medications Medication Instructions Recorded Confirmed Cholecalciferol [Vitamin D3 (25 1,000 unit PO HS 04/13/19 04/13/19 Mcg = 1000 Iu)] Pedi Multivit No.25/Folic Acid 300 mcg PO BID 04/13/19 04/13/19 [Flintstones Multivit Chew Tab] Previous Rx's Medication Instructions Recorded Meclizine [Antivert] 25 mg PO TID #20 tab 04/13/19 Allergies Allergy/AdvReac Type Severity Reaction Status Date / Time Penicillins Allergy Severe Anaphylaxis Verified 04/13/19 14:19 Review of Systems ROS Statement: Those systems with pertinent positive or pertinent negative responses have been documented in the HPI. ROS Other: All systems not noted in ROS Statement are negative. Past Medical History Past Medical History: Eye Disorder, Hypertension, Osteoarthritis (OA) Additional Past Medical History / Comment(s): Hx. of DIVERTICULITIS, LT EYE MAC. DEGEN. HTN resolved after surgery., dysphagia History of Any Multi-Drug Resistant Organisms: None Reported Past Surgical History: Bariatric Surgery, Cholecystectomy, Orthopedic Surgery, Tubal Ligation Additional Past Surgical History / Comment(s): PAIN CLINIC INJECTIONS, RIGHT SHOULDER SX, COLONOSCOPY, EGD sleeve gastrectomy 02-01-18 Past Anesthesia/Blood Transfusion Reactions: No Reported Reaction Additional Past Anesthesia/Blood Transfusion Reaction / Comment(s): Pt states that in June [address] Mckeon attempted to perform an EGD with dilation, the procedure had to be cancelled because she experienced a BP "way over 200 when they put me under" Past Psychological History: No Psychological Hx Reported Smoking Status: Former smoker Past Alcohol Use History: None Reported Past Drug Use History: None Reported - Past Family History Mother Family Medical History: CVA/TIA Father Family Medical History: Myocardial Infarction ([place]) General Exam - General Exam Comments Initial Comments: GENERAL: Patient is well-developed and well-nourished. Patient is nontoxic and well- hydrated and is in mild distress. ENT: Neck is soft and supple. No significant lymphadenopathy is noted. Oropharynx is clear. Moist mucous membranes. Neck has full range of motion without eliciting any pain. EYES: The sclera were anicteric and conjunctiva were pink and moist. Extraocular movements were intact and pupils were equal round and reactive to light. Eyelids were unremarkable. PULMONARY: Unlabored respirations. Good breath sounds bilaterally. No audible rales rhonchi or wheezing was noted. CARDIOVASCULAR: There is a regular rate and rhythm without any murmurs gallops or rubs. ABDOMEN: Soft and nontender with normal bowel sounds. SKIN: Skin is clear with no lesions or rashes and otherwise unremarkable. NEUROLOGIC: Patient is alert and oriented x3. Cranial nerves II through XII are grossly intact. Motor and sensory are also intact. Normal speech, volume and content. Symmetrical smile. Patient has normal finger to nose testing bilaterally MUSCULOSKELETAL: Normal extremities with adequate strength and full range of motion. LYMPHATICS: No significant lymphadenopathy is noted PSYCHIATRIC: Normal psychiatric evaluation. Limitations: no limitations Course Vital Signs 04/13/19 04/13/19 04/13/19 13:53 14:10 15:01 Temperature 97.5 F L Pulse Rate 64 60 Pulse Rate [ 60 Workers Compensation Legal Secretary ] Respiratory 20 16 Rate Blood Pressure 144/78 144/64 O2 Sat by Pulse 96 100 Oximetry 04/13/19 15:40 Temperature Pulse Rate 51 L Pulse Rate [ Workers Compensation Legal Secretary ] Respiratory 16 Rate Blood Pressure 144/59 O2 Sat by Pulse 99 Oximetry Medical Decision Making - Medical Decision Making EKG shows normal sinus rhythm at 62 bpm OH interval 142 QRS is 84 Q-T intervals 416 QTC is 422. Patient's EKG shows no ST segment elevation or depression. CT of the head shows no acute abnormality. Patient received Antivert and Valium and her symptoms almost completely resolved. Patient states she was able to ablate without problem. - Lab Data Result diagrams: 04/13/19 14:20 04/13/19 14:20 Lab Results 04/13/19 04/13/19 04/13/19 Range/Units 14:20 14:20 14:20 WBC 4.7 (3.8-10.6) k/uL RBC 4.40 (3.80-5.40) m/uL Hgb 12.9 (11.4-16.0) gm/dL Hct 40.0 (34.0-46.0) % MCV 90.9 (80.0-100.0) fL MCH 29.3 (25.0-35.0) pg MCHC 32.2 (31.0-37.0) g/dL RDW 13.3 (11.5-15.5) % Plt Count 147 L (150-450) k/uL Neutrophils % 76 % Lymphocytes % 13 % Monocytes % 4 % Eosinophils % 2 % Basophils % 0 % Neutrophils # 3.6 (1.3-7.7) k/uL Lymphocytes # 0.6 L (1.0-4.8) k/uL Monocytes # 0.2 (0-1.0) k/uL Eosinophils # 0.1 (0-0.7) k/uL Basophils # 0.0 (0-0.2) k/uL PT 10.7 (9.0-12.0) sec INR 1.0 (<1.2) APTT 24.7 (22.0-30.0) sec Sodium 137 (137-145) mmol/L Potassium 4.1 (3.5-5.1) mmol/L Chloride 105 (98-107) mmol/L Carbon Dioxide 25 (22-30) mmol/L Anion Gap 7 mmol/L BUN 16 (7-17) mg/dL Creatinine 0.67 (0.52-1.04) mg/dL Est GFR (CKD-EPI)AfAm >90 (>60 ml/min/1.73 sqM) Est GFR (CKD-EPI)NonAf 86 (>60 ml/min/1.73 sqM) Glucose 103 H (74-99) mg/dL Calcium 9.1 (8.4-10.2) mg/dL Magnesium 1.8 (1.6-2.3) mg/dL Total Bilirubin 0.4 (0.2-1.3) mg/dL AST 48 H (14-36) U/L ALT 51 H (4-34) U/L Alkaline Phosphatase 94 (38-126) U/L Troponin I (0.000-0.034) ng/mL Total Protein 6.6 (6.3-8.2) g/dL Albumin 3.7 (3.5-5.0) g/dL 04/13/19 Range/Units 14:20 WBC (3.8-10.6) k/uL RBC (3.80-5.40) m/uL Hgb (11.4-16.0) gm/dL Hct (34.0-46.0) % MCV (80.0-100.0) fL MCH (25.0-35.0) pg MCHC (31.0-37.0) g/dL RDW (11.5-15.5) % Plt Count (150-450) k/uL Neutrophils % % Lymphocytes % % Monocytes % % Eosinophils % % Basophils % % Neutrophils # (1.3-7.7) k/uL Lymphocytes # (1.0-4.8) k/uL Monocytes # (0-1.0) k/uL Eosinophils # (0-0.7) k/uL Basophils # (0-0.2) k/uL PT (9.0-12.0) sec INR (<1.2) APTT (22.0-30.0) sec Sodium (137-145) mmol/L Potassium (3.5-5.1) mmol/L Chloride (98-107) mmol/L Carbon Dioxide (22-30) mmol/L Anion Gap mmol/L BUN (7-17) mg/dL Creatinine (0.52-1.04) mg/dL Est GFR (CKD-EPI)AfAm (>60 ml/min/1.73 sqM) Est GFR (CKD-EPI)NonAf (>60 ml/min/1.73 sqM) Glucose (74-99) mg/dL Calcium (8.4-10.2) mg/dL Magnesium (1.6-2.3) mg/dL Total Bilirubin (0.2-1.3) mg/dL AST (14-36) U/L ALT (4-34) U/L Alkaline Phosphatase (38-126) U/L Troponin I <0.012 (0.000-0.034) ng/mL Total Protein (6.3-8.2) g/dL Albumin (3.5-5.0) g/dL Disposition Clinical Impression: Vertigo Disposition: HOME SELF-CARE Condition: Good Instructions (If sedation given, give patient instructions): Vertigo (ED) Prescriptions: Meclizine [Antivert] 25 mg PO TID #20 tab Is patient prescribed a controlled substance at d/c from ED?: No Referrals: Nalini Munguia MD [Primary Care Provider] - 1-2 days Time of Disposition: 16:43
[2019-04-13 15:09] LABS: Basophils % (A) 0 %; Eosinophils # (A) 0.1 k/uL (0-0.7); Eosinophils % (A) 2 %; HGB 12.9 gm/dL (11.4-16.0); Lymphocytes # (A) 0.6 k/uL (1.0-4.8); Lymphocytes % (A) 13 %; MCH 29.3 pg (25.0-35.0); MCHC 32.2 g/dL (31.0-37.0); MCV 90.9 fL (80.0-100.0); Mean Platelet Volume 8.3; Monocytes # (A) 0.2 k/uL (0-1.0); Monocytes % (A) 4 %; Neutrophils # (A) 3.6 k/uL (1.3-7.7); Neutrophils % (A) 76 %; Platelet Count 147 k/uL (150-450); RDW 13.3 % (11.5-15.5); WBC 4.7 k/uL (3.8-10.6)
[2019-04-13 15:18] LABS: ALT 51 U/L (4-34); AST 48 U/L (14-36); African American GFR (CKD) >90 (>60 ml/min/1.73 sqM); Albumin 3.7 g/dL (3.5-5.0); Alkaline Phosphatase 94 U/L (38-126); Anion Gap 7 mmol/L; Blood Urea Nitrogen 16 mg/dL (7-17); Calcium 9.1 mg/dL (8.4-10.2); Carbon Dioxide 25 mmol/L (22-30); Chloride 105 mmol/L (98-107); Glucose 103 mg/dL (74-99); Magnesium 1.8 mg/dL (1.6-2.3); Non-African American GFR(CKD) 86 (>60 ml/min/1.73 sqM); Partial Thromboplastin Time 24.7 sec (22.0-30.0); Potassium 4.1 mmol/L (3.5-5.1); Prothrombin Time 10.7 sec (9.0-12.0); Sodium 137 mmol/L (137-145); Total Bilirubin 0.4 mg/dL (0.2-1.3); Total Protein 6.6 g/dL (6.3-8.2)
--- NOTE | 2019-04-13 15:26 | CT ---
EXAMINATION TYPE: CT brain wo con DATE OF EXAM: 04/13/2019 COMPARISON: 11/09/2015 INDICATION: Headache, passed out DLP: 991.9 mGycm, Automated exposure control for dose reduction was used. CONTRAST: None CT of the brain is performed utilizing 3 mm thick sections through the posterior fossa and 3 mm thick sections through the remaining calvarium. Study is performed within 24 hours of arrival to the hosp ital. No abnormal hyperdensity is present to suggest an acute intracranial hemorrhage. No mass lesion is evident. No acute infarcts are evident. Ventricles and sulci are appropriate for the patient age. Paranasal sinuses and mastoid air cells within the [id number] are clear. Comparison: No significant interval changes evident. IMPRESSIONS: 1. No acute intracranial process.
--- NOTE | 2019-04-13 15:29 | XR ---
EXAMINATION TYPE: XR chest 2V DATE OF EXAM: 04/13/2019 COMPARISON: 07/19/2011 INDICATION: Chest pain TECHNIQUE: Frontal and lateral views of the chest are obtained. FINDINGS: The heart size is normal. The pulmonary vasculature is normal. There is mild increased lung markings in the right upper lung field. This may be a change. Correlate for pneumonia or atelectasis. Consider atypical forms of pneumonia. Follow-up to clearing is recommen ded. IMPRESSION: 1. Mild right upper lobe increased lung markings of uncertain etiology. This should be followed to cl earing as this is some interval change from 2011. 2. An acute process is not otherwise identified
[2019-04-13] MEDS ORDERED: DIAZEPAM 5 MG/ML 2 ML INJ IVP STA (15:30)
[2019-04-13] MEDS ORDERED: MECLIZINE 25 MG TAB PO STA (15:30)
[2019-04-13 17:04] VITALS: BP 148/72; PULSE 72; RESP 18
== END 2019-04-13 17:02 | disposition home or self-care (01) ==
LOC: EC 13:52
DX: R42 Dizziness and giddiness (principal); R11.0 Nausea; R51 Headache; M19.90 Unspecified osteoarthritis, unspecified site; Z87.891 Personal history of nicotine dependence; Z82.3 Family history of stroke; Z88.0 Allergy status to penicillin; Z98.890 Other specified postprocedural states
CPT/HCPCS: 36415; 93005; 80053; 83735; 84484; 85025; 85610; 85730; 71046; 70450; 99285; 96374; J3360

== ENCOUNTER → 2019-08-11 | Outpatient (CLI) | payer MEDICARE, OTHER ==
--- NOTE | 2019-08-12 14:34 | MR ---
EXAMINATION TYPE: MR cervical spine wo con DATE OF EXAM: 08/11/2019 COMPARISON: X-ray 07/12/2019 submitted from [facility]. HISTORY: Neck pain, headaches x 3 mos TECHNIQUE: Multiplanar, multisequence images of the cervical spine were acquired. C2-C3: Mild degenerative disc disease. No canal stenosis or foraminal encroachment. C3-C4: Mild degenerative disc disease. There is uncovertebral joint hypertrophy greater on the left w ith facet arthropathy. Findings result in moderate to severe left foraminal encroachment. Broad-based central disc bulging or protrusion results in moderate effacement of thecal sac but no spinal cord c ontact. Mild AP canal stenosis. C4-C5: Moderate degenerative disc disease with hypertrophic change of the facets, uncovertebral joint hypertrophy, and circumferential disc bulging result in mild canal stenosis and moderate to severe b ilateral foraminal encroachment. C5-C6: Severe degenerative disc disease with posterior spondylosis and uncovertebral joint hypertroph y. Broad-based disc protrusion greater paracentrally right results in mild anterior impression upon t he spinal cord and canal stenosis. Severe right-sided foraminal encroachment due to greater uncoverte bral joint hypertrophy and disc bulging laterally to the right. Moderate to severe left foraminal enc roachment. C6-C7: Degenerative disc disease and hypertrophic spurring with circumferential disc bulging. Uncover tebral joint hypertrophy results in moderate right foraminal and mild left foraminal encroachment. No canal stenosis or focal herniation. C7-T1: No evidence for degenerative disc disease. No disc bulge/herniation or protrusion. No Canal stenosis. Foramina are patent bilaterally. Cervical segments are intact. There is normal alignment. Cervical spinal cord is of normal signal. Craniovertebral junction relationships are within normal limits. Partially empty sella turcica. The re is a nodularity seen anterior and to the right of the epiglottis noted on axial image [address] IMPRESSION: 1. Multilevel degenerative disc disease with severe changes at levels C5-6 and C6-C7. Multilevel face t arthropathy contributes to multilevel significant foraminal encroachment as discussed above. 2. Multilevel canal stenosis secondary to hypertrophic changes and disc bulging or protrusion most no tably noted at C3-4, C4-5, and C5-6. 3. There is a 1 cm soft tissue nodule seen just anterior to the upper margin of the epiglottis parame bharathi to the right for which direct visualization is recommended to exclude mucosal lesion.
== END | disposition home or self-care (01) ==
LOC: RADMRIMAIN 10:29
PROVIDERS: ATTEND Physical Medicine & Rehabilitation
DX: M48.02 Spinal stenosis, cervical region (principal); M50.122 Cervical disc disorder at C5-C6 level with radiculopathy; M47.22 Other spondylosis with radiculopathy, cervical region
CPT/HCPCS: 72141

== ENCOUNTER → 2020-01-18 | Outpatient (CLI) | payer MEDICARE, OTHER ==
--- NOTE | 2020-01-18 13:21 | MR ---
EXAMINATION TYPE: MR cervical spine wo con DATE OF EXAM: 01/18/2020 COMPARISON: Prior MRI cervical spine exam 08/11/2019 HISTORY: Cervicalgia, disc degeneration, dao TECHNIQUE: Multiplanar, multisequence images of the cervical spine were acquired. C2-C3: No evidence for degenerative disc disease. No disc bulge/herniation or protrusion. No Canal stenosis. Foramina are patent bilaterally. C3-C4: Posterior broad-based disc bulge causes anterior mass effect on the thecal sac, mild spinal st enosis, uncovertebral joint hypertrophy and facet arthropathy results in some foraminal encroachment greater on the left than on the right C4-C5: Posterior broad-based disc bulge causes anterior mass effect on the thecal sac. Foraminal encr oachment is greater on the left than on the right due to uncovertebral joint hypertrophy and facet ar thropathy. No significant spinal stenosis. C5-C6: Posterior extension of endplate disc complex is somewhat eccentric towards the right. Right-si ded foraminal encroachment due to uncovertebral joint hypertrophy and facet arthropathy is stable. C6-C7: Posterior broad-based disc bulge causes minimal anterior mass effect on the thecal sac. There is bilateral foraminal encroachment right greater than left as on prior exam. C7-T1: There is bilateral foraminal encroachment similar to prior exam. Cervical segments are intact. There is stable alignment. Cervical spinal cord is of normal signal. Craniovertebral junction relationships are within normal limits. There is multilevel spondylosis as on previous exam. Loss of disc height and signal is greatest at C4-5, C5-6 and C6-7, there is some e ndplate discogenic marrow signal change as on prior. T2 bright lesion within the valleculae on the right is again seen and is stable. IMPRESSION: Stable degenerative disc disease, foraminal encroachment as described. The abnormality seen within th e vallecula on the right is again noted, consider ENT consult if this has not been performed for dire ct visualization.
== END | disposition home or self-care (01) ==
LOC: RADMRIMAIN 12:01
PROVIDERS: ATTEND Orthopaedic Surgery Orthopaedic Surgery of the Spine
DX: M50.31 Other cervical disc degeneration, high cervical region (principal); E66.9 Obesity, unspecified; M25.78 Osteophyte, vertebrae; M47.812 Spondylosis without myelopathy or radiculopathy, cervical region; M79.12 Myalgia of auxiliary muscles, head and neck; R51.9 Headache, unspecified
CPT/HCPCS: 72141

== ENCOUNTER 2020-06-27 08:41 | Emergency (ER) | payer MEDICARE, OTHER ==
[2020-06-27 09:04] VITALS: RESP 18
[2020-06-27] MEDS ORDERED: THIAMINE 100 MG/ML 2 ML VIAL IM STA (09:17)
[2020-06-27] MEDS ORDERED: SODIUM CHLORIDE 0.9% 500 ML 500 ML IV STA (09:17)
[2020-06-27] MEDS ORDERED: LORazepam 2 MG/ML INJ IV STA (09:18)
--- NOTE | 2020-06-27 09:20 | ED ---
General Adult HPI - General Chief complaint: Alcohol Stated complaint: alcohol withdrawal Time Seen by Provider: 06/27/20 09:07 Source: patient, RN notes reviewed Mode of arrival: ambulatory Limitations: no limitations - History of Present Illness Initial comments: Patient is a pleasant 75-year-old female presenting to the emergency department with concerns regarding alcohol withdrawal. Patient stopped drinking vodka 3 or 4 days ago. Patient states she was drinking the secondary to problems she had with her shoulder. Patient states she did get in an argument with her daughter and stopped drinking following that. Patient has not slept well and was up around 3 hours last night. Patient has felt shaky. Patient has had palpitations. - Related Data Home Medications Medication Instructions Recorded Confirmed Cholecalciferol [Vitamin D3 (25 25 mcg PO DAILY 04/13/19 06/27/20 Mcg = 1000 Iu)] Gabapentin 300 mg PO BID 06/27/20 06/27/20 Magnesium(Unknown Dose) 1 tab PO DAILY 06/27/20 06/27/20 Meloxicam [Mobic] 7.5 mg PO BID 06/27/20 06/27/20 Multivitamins, Thera [Multivitamin 1 tab PO DAILY 06/27/20 06/27/20 (formulary)] Niacin(Unknown Dose) 1 tab PO DAILY 06/27/20 06/27/20 amLODIPine [Norvasc] 5 mg PO HS 06/27/20 06/27/20 Allergies Allergy/AdvReac Type Severity Reaction Status Date / Time Penicillins Allergy Severe Anaphylaxis Verified 06/27/20 11:29 Review of Systems ROS Statement: Those systems with pertinent positive or pertinent negative responses have been documented in the HPI. ROS Other: All systems not noted in ROS Statement are negative. Constitutional: Denies: fever Eyes: Denies: eye pain ENT: Denies: ear pain Respiratory: Denies: cough Cardiovascular: Reports: palpitations. Denies: chest pain Endocrine: Denies: fatigue Gastrointestinal: Reports: diarrhea (Resolved). Denies: abdominal pain, vomiting Genitourinary: Denies: dysuria Musculoskeletal: Denies: back pain Skin: Denies: rash Neurological: Denies: weakness Past Medical History Past Medical History: Eye Disorder, Hypertension, Osteoarthritis (OA) Additional Past Medical History / Comment(s): Hx. of DIVERTICULITIS, LT EYE MAC. DEGEN. HTN resolved after surgery., dysphagia History of Any Multi-Drug Resistant Organisms: None Reported Past Surgical History: Bariatric Surgery, Cholecystectomy, Orthopedic Surgery, Tubal Ligation Additional Past Surgical History / Comment(s): PAIN CLINIC INJECTIONS, RIGHT SHOULDER SX, COLONOSCOPY, EGD sleeve gastrectomy 02-01-18 Past Anesthesia/Blood Transfusion Reactions: No Reported Reaction Additional Past Anesthesia/Blood Transfusion Reaction / Comment(s): Pt states that in June [address] Mckeon attempted to perform an EGD with dilation, the procedure had to be cancelled because she experienced a BP "way over 200 when they put me under" Past Psychological History: No Psychological Hx Reported Smoking Status: Never smoker Past Alcohol Use History: Daily Past Drug Use History: None Reported - Past Family History Mother Family Medical History: CVA/TIA Father Family Medical History: Myocardial Infarction ([place]) General Exam Limitations: no limitations General appearance: alert, in no apparent distress, other (Minimal resting tr emor) Head exam: Present: normocephalic Eye exam: Present: normal appearance Neck exam: Present: normal inspection Respiratory exam: Present: normal lung sounds bilaterally Cardiovascular Exam: Present: regular rate, normal rhythm GI/Abdominal exam: Present: soft. Absent: tenderness Extremities exam: Present: normal inspection Neurological exam: Present: alert. Absent: motor sensory deficit Psychiatric exam: Present: normal affect, normal mood Skin exam: Present: normal color Course Vital Signs 06/27/20 08:59 Temperature 97.7 F Pulse Rate 72 Respiratory 18 Rate Blood Pressure 152/61 O2 Sat by Pulse 99 Oximetry Medical Decision Making - Medical Decision Making Patient reevaluated and resting comfortably in bed, symptom-free. Patient updated on results and need for follow-up. - Lab Data Result diagrams: 06/27/20 09:17 06/27/20 09:17 Lab Results 06/27/20 06/27/20 06/27/20 Range/Units 09:17 09:17 09:17 WBC 4.5 (3.8-10.6) k/uL RBC 4.46 (3.80-5.40) m/uL Hgb 13.2 (11.4-16.0) gm/dL Hct 42.5 (34.0-46.0) % MCV 95.2 (80.0-100.0) fL MCH 29.6 (25.0-35.0) pg MCHC 31.1 (31.0-37.0) g/dL RDW 14.8 (11.5-15.5) % Plt Count 137 L (150-450) k/uL MPV 7.4 Neutrophils % 70 % Lymphocytes % 16 % Monocytes % 7 % Eosinophils % 5 % Basophils % 1 % Neutrophils # 3.2 (1.3-7.7) k/uL Lymphocytes # 0.7 L (1.0-4.8) k/uL Monocytes # 0.3 (0-1.0) k/uL Eosinophils # 0.2 (0-0.7) k/uL Basophils # 0.0 (0-0.2) k/uL PT 10.0 (9.0-12.0) sec INR 0.9 (<1.2) Sodium 139 (137-145) mmol/L Potassium 4.4 (3.5-5.1) mmol/L Chloride 107 (98-107) mmol/L Carbon Dioxide 30 (22-30) mmol/L Anion Gap 2 mmol/L BUN 20 H (7-17) mg/dL Creatinine 0.62 (0.52-1.04) mg/dL Est GFR (CKD-EPI)AfAm >90 (>60 ml/min/1.73 sqM) Est GFR (CKD-EPI)NonAf 87 (>60 ml/min/1.73 sqM) Glucose 91 (74-99) mg/dL Calcium 8.9 (8.4-10.2) mg/dL Magnesium 2.1 (1.6-2.3) mg/dL Total Bilirubin 0.4 (0.2-1.3) mg/dL AST 29 (14-36) U/L ALT 21 (4-34) U/L Alkaline Phosphatase 108 (38-126) U/L Total Protein 6.3 (6.3-8.2) g/dL Albumin 3.6 (3.5-5.0) g/dL Lipase 79 (23-300) U/L Serum Alcohol <10 mg/dL Disposition Clinical Impression: Alcohol withdrawal syndrome Disposition: HOME SELF-CARE Condition: Stable Instructions (If sedation given, give patient instructions): Alcohol Withdrawal (ED) Additional Instructions: Continue to avoid alcohol. These follow-up with primary care physician in the next day or 2 for recheck. If needed U may take one half of your Xanax today, and the other half tomorrow. Return for confusion, weakness, difficult in walking, worsening symptoms or any other concerns. Is patient prescribed a controlled substance at d/c from ED?: No Referrals: Nalini Munguia MD [Primary Care Provider] - 1-2 days Time of Disposition: 12:16
[2020-06-27 11:44] LABS: Basophils % (A) 1 %; Eosinophils # (A) 0.2 k/uL (0-0.7); Eosinophils % (A) 5 %; HCT 42.5 % (34.0-46.0); HGB 13.2 gm/dL (11.4-16.0); Lymphocytes # (A) 0.7 k/uL (1.0-4.8); Lymphocytes % (A) 16 %; MCH 29.6 pg (25.0-35.0); MCHC 31.1 g/dL (31.0-37.0); MCV 95.2 fL (80.0-100.0); Mean Platelet Volume 7.4; Monocytes # (A) 0.3 k/uL (0-1.0); Monocytes % (A) 7 %; Neutrophils # (A) 3.2 k/uL (1.3-7.7); Neutrophils % (A) 70 %; Platelet Count 137 k/uL (150-450); RBC 4.46 m/uL (3.80-5.40); RDW 14.8 % (11.5-15.5); WBC 4.5 k/uL (3.8-10.6)
[2020-06-27 11:57] LABS: ALT 21 U/L (4-34); AST 29 U/L (14-36); African American GFR (CKD) >90 (>60 ml/min/1.73 sqM); Albumin 3.6 g/dL (3.5-5.0); Alcohol <10 mg/dL; Alkaline Phosphatase 108 U/L (38-126); Anion Gap 2 mmol/L; Blood Urea Nitrogen 20 mg/dL (7-17); Calcium 8.9 mg/dL (8.4-10.2); Carbon Dioxide 30 mmol/L (22-30); Chloride 107 mmol/L (98-107); Glucose 91 mg/dL (74-99); INR 0.9 (<1.2); Lipase 79 U/L (23-300); Magnesium 2.1 mg/dL (1.6-2.3); Non-African American GFR(CKD) 87 (>60 ml/min/1.73 sqM); Potassium 4.4 mmol/L (3.5-5.1); Sodium 139 mmol/L (137-145); Total Bilirubin 0.4 mg/dL (0.2-1.3); Total Protein 6.3 g/dL (6.3-8.2)
[2020-06-27] MEDS ORDERED: ALPRAZolam 1 MG TAB PO STA (12:15)
[2020-06-27 12:27] VITALS: BP 140/55; PULSE 75; TEMP 97.8
== END 2020-06-27 12:33 | disposition home or self-care (01) ==
LOC: EC 08:41
DX: F10.239 Alcohol dependence with withdrawal, unspecified (principal); I10 Essential (primary) hypertension; M19.90 Unspecified osteoarthritis, unspecified site; Z79.899 Other long term (current) drug therapy; Z79.1 Long term (current) use of non-steroidal anti-inflammatories (NSAID); Z88.0 Allergy status to penicillin; Y90.0 Blood alcohol level of less than 20 mg/100 ml
CPT/HCPCS: 36415; 80053; 83690; 83735; 85025; 85610; 99284; 96374; 96372; G0480; J2060; J3411; 80320

== ENCOUNTER → 2020-07-25 | Outpatient (CLI) | payer MEDICARE, OTHER ==
--- NOTE | 2020-07-25 14:52 | P.HPBAR ---
Bariatric H&P - History & Physicial H&P Date: 07/25/20 History & Physicial: Visit/CC: Patient initial contact: Initial weight: 113.398 kg Initial weight in pounds: Height: Initial BMI: Last weight: Current weight: Current weight in pounds: Current BMI: [place] body weight (based on NIH guidelines): Excess body weight loss: The patient is a 75 year-old F who presents for Bariatric Assessment. DATE: 07/25/2020 CHIEF COMPLAINT: Status post sleeve gastrectomy HISTORY OF PRESENT ILLNESS: Gracie Ybarra is a 75-year-old female who is status post sleeve gastrectomy 02/01/2018. She is over 2 years out. She was lost to follow up for over 2 years. She is looking to lose more weight. She is eating more. She reports spells of belching. She reports intermittent epigastric disco mfort. No reports of dysphagia. She comes in with weight gain. She comes in with consultation for weight regain. At her present height of 5 feet 4 inches, her ideal body weight is 144 pounds. Her highest weight is 263 pounds, BMI 45.2. Today she comes in weighing 198 pounds from 196 pounds, 2 years ago. She has gained 2 pounds in 2 years. Her body mass index was 45.2, now 34.2. She has lost 64 pounds lifetime. Percent excess weight loss is 54 %. PAST MEDICAL HISTORY: 1. Morbid obesity excess calories, BMI 41.7 2. Hypertensive heart disease 3. Hyperlipidemia 4. Osteoarthritis 5. Diabetes type 2, [id number] 6. Macular degeneration 7. Diverticulitis PAST SURGICAL HISTORY: 1. Cholecystectomy 2. Upper endoscopy 3. Lower endoscopy 4. Right shoulder repair 5. Sleeve gastrectomy HOME MEDICATIONS: Home Medications Medication Instructions Recorded Confirmed Cholecalciferol [Vitamin D3 (25 25 mcg PO DAILY 04/13/19 07/25/20 Mcg = 1000 Iu)] Multivitamins, Thera [Multivitamin 1 tab PO DAILY 06/27/20 07/25/20 (formulary)] amLODIPine [Norvasc] 5 mg PO HS 06/27/20 07/25/20 C,E,Zinc,Copper 11/Zajqu3w/Lut 1 each PO DAILY 07/25/20 07/25/20 [Ocuvite Adult 50 Plus Softgel] Diclofenac Sodium/Misoprostol 1 each PO DAILY 07/25/20 07/25/20 [Diclofenac-Misoprost 75-200 Tb] ALLERGIES: Penicillin anaphylaxis SOCIAL HISTORY: No active tobacco use. Recent alcohol abuse. FAMILY HISTORY: Denies any DVTs, pulmonary embolisms in her family. Denies any ulcerative colitis disease or Crohn's. She does have a family history of morbid obesity. REVIEW OF ORGAN SYSTEMS: CONSTITUTIONAL: At her present height of 5 feet 4 inches, her ideal body weight is 144 pounds. Her highest weight is 263 pounds, BMI 45.2. HEENT: Denies any active troubles with hearing. She wears glasses. ENDOCRINE: No reports of hypothyroidism. Has diet controlled diabetes. CARDIOVASCULAR: No reports of palpitations or heart attacks or chest pain. RESPIRATORY: Has daytime somnolence including snoring, suspicious for sleep apnea. No recent asthma. GI: Denies any bright red blood per rectum, diarrhea or constipation. Has diverticulitis. MUSCULOSKELETAL: Describes generalized muscle aches. History of pain clinic for right shoulder NEURO: There were no reports of headaches or seizure disorders. PSYCH: No depression or suicidal ideation. HEMATOLOGIC: Denies any abnormal bleeding or bruising. SKIN: No skin cancer or rash PHYSICAL EXAM: VITAL SIGNS: Height 5 foot 4 inches, weight 198 pounds. BMI 34.2 Vital Signs Temp 98.3 F 07/25/20 14:40 Pulse 67 07/25/20 14:40 Resp 18 07/25/20 14:40 BP 147/62 07/25/20 14:40 Pulse Ox GENERAL: Well-developed female in no acute distress. HEENT: No scleral icterus. Extraocular movements grossly intact. Head is normocephalic. Hears conversational speech. NECK: Supple without lymphadenopathy. CHEST: Nonlabored respirations with equal bilateral excursions. CARDIOVASCULAR: Regular rate. Distal 2+ pulses. ABDOMEN: Soft, nontender. Nondistended. MUSCULOSKELETAL: No clubbing, cyanosis, or edema. NEURO: No focal or lateralizing signs. Cranial nerves 2 through 12 grossly within normal limits. PSYCH: Appropriate affect. Alert and oriented to person, place and time. SKIN: Well perfused. Good skin turgor. RECORDS: Emergency room records from June 2020 demonstrates recent alcohol withdrawal from moderate alcohol abuse with Vodka LABS: Hemoglobin normal. Platelets low at 137. LFTs within normal limits. ASSESSMENT: 1. Morbid obesity excess calories, BMI 42.8 to 34.2 2. Hypertensive heart disease 3. Hyperlipidemia 4. Osteoarthritis 5. Diabetes type 2, [id number] 6. Macular degeneration 7. Diverticulitis 8. Gastroesophageal reflux disease 9. Status post sleeve gastrectomy 10. History of alcohol abuse. PLAN: 1. Recommend full bariatric panel. 2. Recommend upper endoscopy for recent belching episodes and gastroesophageal reflux disease Past Medical History Past Medical History: Eye Disorder, Hypertension, Osteoarthritis (OA) Additional Past Medical History / Comment(s): Hx. of DIVERTICULITIS, LT EYE MAC. DEGEN. HTN resolved after surgery., dysphagia History of Any Multi-Drug Resistant Organisms: None Reported Past Surgical History: Bariatric Surgery, Cholecystectomy, Orthopedic Surgery, Tubal Ligation Additional Past Surgical History / Comment(s): PAIN CLINIC INJECTIONS, RIGHT SHOULDER SX, COLONOSCOPY, EGD sleeve gastrectomy 02-01-18 Past Anesthesia/Blood Transfusion Reactions: No Reported Reaction Additional Past Anesthesia/Blood Transfusion Reaction / Comm: Pt states that in June [address] Mckeon attempted to perform an EGD with dilation, the procedure had to be cancelled because she experienced a BP "way over 200 when they put me under" Past Psychological History: No Psychological Hx Reported Smoking Status: Never smoker Past Alcohol Use History: Daily Past Drug Use History: None Reported - Past Family History Mother Family Medical History: CVA/TIA Father Family Medical History: Myocardial Infarction (SD) Results - Labs 07/25/20 15:25 07/25/20 15:25 Bariatric Checklist Checklist: Plan: Checklist: EGD: 1. Hiatal hernia: 2. H. Pylori: HgbA1c: Vitamin D: Smoking: Former smoker Primary care physician referral: Nalini Munguia ([place]) Psychiatry clearance: Cardiology clearance: Sleep study: Diet journal: VTE risk score: VTE risk level: Rehab needs at discharge:
[2020-07-25 14:56] VITALS: BP 147/62; PULSE 67; RESP 18; TEMP 98.3; BMI 34.1
[2020-07-25 16:35] LABS: HCT 45.6 % (34.0-46.0); HGB 14.4 gm/dL (11.4-16.0); MCH 30.1 pg (25.0-35.0); MCHC 31.7 g/dL (31.0-37.0); MCV 95.2 fL (80.0-100.0); Platelet Count 157 k/uL (150-450); RBC 4.79 m/uL (3.80-5.40); RDW 14.6 % (11.5-15.5); WBC 5.9 k/uL (3.8-10.6)
[2020-07-25 22:38] LABS: INR 0.99 (0.90-1.11); Partial Thromboplastin Time 29.2 sec (23.5-31.0); Prothrombin Time 10.8 sec (9.9-11.9)
[2020-07-26 03:38] LABS: Estimated Average Glucose 111.15; Hemoglobin A1C 5.5 % (4.0-6.0)
[2020-07-26 03:46] LABS: Ferritin 141.9 ng/mL (10.0-291.0)
[2020-07-26 04:29] LABS: % Iron Saturation 22.25 (12.00-45.00); African American GFR (CKD) 96.9 (60.0-200.0); Albumin 4.4 g/dL (3.80-4.90); Albumin/Globulin Ratio 1.76 (1.60-3.17); Anion Gap 11.5 mmol/L (4.00-12.00); BUN/Creat Ratio 34.29 Ratio (12.00-20.00); Calcium 9.3 mg/dL (8.7-10.3); Carbon Dioxide 22.5 mmol/L (21.6-31.8); Chol/HDL Ratio 2.64; Folate, Serum 10.7 ng/mL; Globulin 2.5 g/dL (1.6-3.3); LDL Cholesterol,Calculated 96.8 mg/dL (0.0-131.0); Magnesium 1.8 mg/dL (1.5-2.4); Non-African American GFR(CKD) 83.6 (60.0-200.0); Phosphorus 3.7 mg/dL (2.4-5.1); Potassium 4.1 mmol/L (3.5-5.5); Total Bilirubin 0.5 mg/dL (0.3-1.2); Total Protein 6.9 g/dL (6.2-8.2); VLDL Calculation 16.2 mg/dL (5.00-40.00)
[2020-07-26 14:11] LABS: Zinc, Serum 81 ug/dL (60-130)
[2020-07-27 06:49] LABS: Vitamin A 55 ug/dL (38-106)
[2020-07-27 06:51] LABS: Vit B1(Thiamine) 59 ug/L (38-122)
[2020-07-29 17:09] LABS: Selenium 108 mcg/L (63-160)
== END ==
LOC: BARWHC3 13:47
PROVIDERS: ATTEND Surgery Plastic and Reconstructive Surgery
DX: E66.01 Morbid (severe) obesity due to excess calories (principal); E78.5 Hyperlipidemia, unspecified; M19.90 Unspecified osteoarthritis, unspecified site; E11.9 Type 2 diabetes mellitus without complications; H35.30 Unspecified macular degeneration; I11.9 Hypertensive heart disease without heart failure; K57.92 Diverticulitis of intestine, part unspecified, without perforation or abscess without bleeding; K21.9 Gastro-esophageal reflux disease without esophagitis; Z98.84 Bariatric surgery status; Z86.59 Personal history of other mental and behavioral disorders; Z68.34 Body mass index [BMI] 34.0-34.9, adult; Z88.0 Allergy status to penicillin
CPT/HCPCS: 84255; 84134; 84425; 80061; 80053; 82607; 82728; 82525; 82746; 83540; 83550; 83735; 84100; 84443; 84590; 84630; 85027; 85610; 85730; 82306; 83970; 83036; G0463; 99211

== ENCOUNTER → 2020-09-04 | Outpatient (CLI) | payer MEDICARE, OTHER ==
[2020-09-04 23:38] LABS: Basophils # (A) 0.06 X 10*3/uL (0.00-0.10); Eosinophils # (A) 0.39 X 10*3/uL (0.04-0.35); Eosinophils % (A) 6.6 %; HCT 39.9 % (37.2-46.3); HGB 12.4 g/dL (12.0-15.0); Lymphocytes # (A) 1.26 X 10*3/uL (0.90-5.00); Lymphocytes % (A) 21.4 %; MCH 30.2 pg (27.0-32.0); MCHC 31.1 g/dL (32.0-37.0); MCV 97.1 fL (80.0-97.0); Mean Platelet Volume 12.4 fL (9.5-12.2); Monocytes # (A) 0.46 X 10*3/uL (0.20-1.00); Monocytes % (A) 7.8 %; Neutrophils # (A) 3.69 X 10*3/uL (1.80-7.70); Neutrophils % (A) 62.9 %; Platelet Count 160 X 10*3/uL (140-440); RBC 4.11 X 10*6/uL (4.10-5.20); RDW 12.8 % (11.5-14.5); WBC 5.88 X 10*3/uL (4.50-10.00)
[2020-09-05 01:42] LABS: Partial Thromboplastin Time 27.3 sec (23.5-31.0); Prothrombin Time 10.9 sec (9.9-11.9)
[2020-09-05 04:41] LABS: African American GFR (CKD) 82.4 (60.0-200.0); Albumin 4.1 g/dL (3.80-4.90); Albumin/Globulin Ratio 1.58 (1.60-3.17); Anion Gap 12.3 mmol/L (4.00-12.00); BUN/Creat Ratio 26.25 Ratio (12.00-20.00); Calcium 9.3 mg/dL (8.7-10.3); Carbon Dioxide 21.7 mmol/L (21.6-31.8); Globulin 2.6 g/dL (1.6-3.3); Non-African American GFR(CKD) 71.1 (60.0-200.0); Total Bilirubin 0.3 mg/dL (0.2-1.2); Total Protein 6.7 g/dL (6.2-8.2)
== END | disposition home or self-care (01) ==
LOC: LABWHC1 14:23
PROVIDERS: ATTEND Nurse Practitioner Family
DX: Z01.812 Encounter for preprocedural laboratory examination (principal)
CPT/HCPCS: 36415; 80053; 85025; 85610; 85730

== ENCOUNTER → 2021-03-28 | Outpatient (CLI) | payer MEDICARE, OTHER ==
--- NOTE | 2021-03-28 12:46 | XR ---
EXAMINATION TYPE: XR thoracic spine complete DATE OF EXAM: 03/28/2021 CLINICAL HISTORY: Fall with mid back pain. TECHNIQUE: Frontal, lateral, and swimmer's view of thoracic spine are obtained. COMPARISON: Chest x-ray April 13, 2019. FINDINGS: Thoracic spine show S-shaped scoliotic curvature. No acute fracture or dislocation is seen . Vertebral body heights and disc space heights are preserved. Mild to moderate multilevel spurring g reatest right lateral aspect in the mid to lower thoracic spine redemonstrated. Visualized ribs are i ntact bilaterally. Cholecystectomy clips are seen. IMPRESSION: No acute fracture or dislocation is seen in the thoracic spine. No significant change fr om prior chest x-ray.
--- NOTE | 2021-03-28 12:54 | XR ---
EXAMINATION TYPE: XR lumbar spine 2 or 3V DATE OF EXAM: 03/28/2021 CLINICAL HISTORY: Fall injury with low back pain TECHNIQUE: Frontal and lateral images of the lumbar spine are obtained. COMPARISON: CT a/p dated 02/12/2018. FINDINGS: There are 5 lumbar type vertebral bodies redemonstrated. No acute displaced fracture is ev ident. The lumbar spine redemonstrates grade 1 retrolisthesis L2 on L3 and L3 on L4. Vertebral body heights are maintained. Pzdn-en-azuifblj multilevel spurring and disc space narrowing greatest at L1 -L2 and L3-L4 levels redemonstrated. Moderate to severe overlying arterial vascular calcification aga in seen. Surgical sutures from gastric sleeve partially imaged. Cholecystectomy clips are redemonstra andrei. IMPRESSION: As above.
--- NOTE | 2021-03-28 13:05 | XR ---
EXAMINATION TYPE: XR Hip Complete LT DATE OF EXAM: 03/28/2021 CLINICAL HISTORY: Fall injury with pain TECHNIQUE: AP and frogleg views of the left hip are obtained. COMPARISON: CT abdomen and pelvis February 12, 2018. FINDINGS: There is no acute fracture/dislocation evident in the left hip. Persistent mild acetabular spurring. Joint space is maintained. Stable subcentimeter sclerotic focus near the head neck juncti on presumed benign bone island. The overlying soft tissue appears unremarkable. IMPRESSION: There is no acute fracture or dislocation in the left hip.
--- NOTE | 2021-03-28 13:07 | XR ---
EXAMINATION TYPE: XR ribs LT DATE OF EXAM: 03/28/2021 COMPARISON: Chest x-ray April 13, 2019 HISTORY: Fall injury 4 days ago with pain TECHNIQUE: A frontal and oblique images of the left-sided ribs. FINDINGS: No acute displaced left-sided rib fracture is seen. No suspicious bony destructive or expan sile rib lesion is identified. Osseous structures are demineralized. Visualized left lung is clear. IMPRESSION: As Above.
== END | disposition home or self-care (01) ==
LOC: RADXRMAIN 11:31
PROVIDERS: ATTEND Internal Medicine
DX: G89.11 Acute pain due to trauma (principal); M43.16 Spondylolisthesis, lumbar region; M25.78 Osteophyte, vertebrae; M81.0 Age-related osteoporosis without current pathological fracture; S29.9XXA Unspecified injury of thorax, initial encounter; S79.912A Unspecified injury of left hip, initial encounter; M51.36 Other intervertebral disc degeneration, lumbar region; S39.92XA Unspecified injury of lower back, initial encounter; W19.XXXA Unspecified fall, initial encounter
CPT/HCPCS: 72072; 72100; 73502

== ENCOUNTER → 2021-05-07 | Outpatient (CLI) | payer MEDICARE, OTHER ==
--- NOTE | 2021-05-08 16:54 | BD ---
EXAMINATION TYPE: Axial Bone Density DATE OF EXAM: 05/07/2021 COMPARISON: NONE CLINICAL HISTORY: 75 years year old Female. ICD-10 CODE: M85.88 Other disorder of bone Height: 5 FT 2 1/4 IN Weight: FRAX RISK QUESTIONS: Alcohol (3 or more units per day): NO Family History (Parent hip fracture): NO Glucocorticoids (More than 3mos): NO (Ex: prednisone, prednisolone, methylprednisolone, dexamethasone, and hydrocortisone). History of Fracture in Adulthood: YES Secondary Osteoporosis: 1. Type 1 Diabetes: NO 2. Hyperthyroidism: NO 3. Menopause before 45: NO 4. Malnutrition: NO 5. Chronic liver disease: NO Rheumatoid Arthritis: NO Current Tobacco Use: NO RISK FACTORS HISTORY OF: Surgery to Spine/Hip(right/left)/Wrist (right/left): NO Family History of Osteoporosis: NO Active: YES Diet low in dairy products/other sources of calcium: NO Postmenopausal woman: YES Take estrogen and/or progesterone medications: NO Lost more than 2 inches in height since high school: YES Frequent falls: UNSTEADY USES A CANE Poor Health: GOOD Hyperparathyroidism: NO Adrenal Insufficiency: NO MEDICATIONS: Additional Medications: BLOOD PRESSURE MEDS Additional History: EXAM MEASUREMENTS: Bone mineral densitometry was performed using the [employer] System. Bone mineral density as measured about the Lumbar spine is: ----- L1-L4(G/cm2): 1.338 T Score Values are as follows: ----- L1: 1.0 ----- L2: 1.4 ----- L3: 1.2 ----- L4: 1.6 ----- L1-L4: 1.3 Bone mineral density has: INCREASED 7.0 % since study of: 2014 Bone mineral density about the R hip (g/cm2): 0.818 Bone mineral density about the L hip (g/cm2): 0.856 T Score values are as follows: -----R Neck: -1.6 -----L Neck: -1.3 -----R Total: -1.3 -----L Total: -1.0 Bone mineral density has: DECREASED -10.9 % since study of: 2014 FRAX%s: The graph provided illustrates a 17.6 % chance for a major osteoporotic fx and a 3.6 % chance for the hips probability for fx in 10 years time. IMPRESSION: Osteopenia (T Score between -2.5 and -1). There is slightly increased risk of fracture and the patient may be considered for treatment. Re-Screen 2-5 years. NOTE: T-SCORE=SD OF THE YOUNG ADULT MEAN.
--- NOTE | 2021-05-09 14:38 | MM ---
Reason for exam: screening (asymptomatic). Last mammogram was performed 6 years and 5 months ago. History: Patient is postmenopausal. Physical Findings: A clinical breast exam by your physician is recommended on an annual basis and results should be correlated with mammographic findings. MG 3D Screening Mammo W/Cad Bilateral CC and MLO view(s) were taken. Prior study comparison: November 29, 2014, bilateral MG screening mammo w CAD. November 15, 2012, bilateral digital screening mammo w/CAD. There are scattered fibroglandular densities. Focal asymmetry left posterior MLO, appears summation on repeat image. ASSESSMENT: Probably benign, BI-RAD 3 RECOMMENDATION: Follow-up diagnostic mammogram of the left breast in 6 months.
== END | disposition home or self-care (01) ==
LOC: RADMAMWWP 15:37
PROVIDERS: ATTEND Internal Medicine
DX: Z12.31 Encounter for screening mammogram for malignant neoplasm of breast (principal); M85.89 Other specified disorders of bone density and structure, multiple sites; Z78.0 Asymptomatic menopausal state
CPT/HCPCS: 77063; 77067; 77080

== ENCOUNTER → 2021-07-26 | Outpatient (CLI) | payer MEDICARE, OTHER ==
--- NOTE | 2021-07-26 08:12 | US ---
EXAMINATION TYPE: US liver DATE OF EXAM: 07/26/2021 COMPARISON: NONE CLINICAL HISTORY: R94.5 ABN LIVER FUNCTION. Elevated LFTs. Cholecystectomy. EXAM MEASUREMENTS: Liver Length: 15.9 cm Gallbladder Wall: Surgically absent cm CBD: 0.4 cm Right Kidney: 11.0 x 4.8 x 4.3 cm Pancreas: Partially obscured by bowel gas Liver: wnl Gallbladder: Surgically absent Evidence for sonographic Jernigan's sign: No CBD: wnl Right Kidney: wnl IMPRESSION: 1. Normal right upper quadrant abdomen ultrasound
== END | disposition home or self-care (01) ==
LOC: RADUSWWP 07:16
PROVIDERS: ATTEND Internal Medicine
DX: R94.5 Abnormal results of liver function studies (principal); R79.89 Other specified abnormal findings of blood chemistry; Z90.49 Acquired absence of other specified parts of digestive tract
CPT/HCPCS: 76705

== ENCOUNTER → 2021-10-22 | Outpatient (CLI) | payer MEDICARE, OTHER ==
--- NOTE | 2021-10-22 10:29 | MM ---
Reason for Exam: Additional evaluation requested from abnormal screening. Last screening mammogram was performed 6 month(s) ago. Patient History: Menarche at age 11. First Full-Term at age 13. Postmenopausal. Risk Values: Hallie 5 year model risk: 1.2%. NCI Lifetime model risk: 2.2%. Prior Study Comparison: 11/15/2012 Bilateral Screening Mammogram, [facility]. 11/29/2014 Bilateral Screening Mammogram, [facility]. 05/07/2021 Bilateral Screening Mammogram, [facility]. Tissue Density: Left: There are scattered fibroglandular densities. Findings: Analyzed By CAD. Some anterior benign-appearing small round and vascular calcifications in the left breast are redemonstrated. No new mass or distortion in the left breast. Overall Assessment: Benign, BI-RAD 2 Management: Screening Mammogram of both breasts in 6 months. Back on schedule. Results were given to the patient verbally at the time of exam. Electronically signed and approved by: Mio Robison M.D.
== END | disposition home or self-care (01) ==
LOC: RADMAMWWP 09:33
PROVIDERS: ATTEND Internal Medicine
DX: R92.8 Other abnormal and inconclusive findings on diagnostic imaging of breast (principal); Z78.0 Asymptomatic menopausal state
CPT/HCPCS: 77065; G0279; 77061

== ENCOUNTER 2021-12-20 23:23 | Emergency (ER) | payer MEDICARE, OTHER ==
[2021-12-20] MEDS ORDERED: SODIUM CHLORIDE 0.9% 1,000 ML IV STA (23:28)
[2021-12-20] MEDS ORDERED: SODIUM CHLORIDE 0.9% 500 ML 500 ML IV STA (23:28)
--- NOTE | 2021-12-20 23:29 | ED ---
Weakness HPI <Nehemiah Nuno - Last Filed: 12/21/21 16:31> - General Source: RN notes reviewed, old records reviewed Limitations: no limitations - History of Present Illness MD Complaint: generalized weakness, lack of energy -: hour(s) Location: generalized Severity: moderate Severity scale (1-10): 4 Consistency: intermittent, now resolved Improves with: none Worsens with: none Context: recent illness, history of similar Associated Symptoms: denies other symptoms <Bill Schneider - Last Filed: 12/21/21 21:23> - General Stated complaint: Afib Time Seen by Provider: 12/20/21 23:28 - History of Present Illness Initial comments: This is a 76-year-old female to the emergency department for evaluation she presents to ER because her apple was was telling her she was in atrial fib rillation. Patient and EMS states that symptoms resolved during EMS transport and EMS noted the rhythm did change on the monitor during transport. Patient has no chest pain or shortness of breath. No other significant complaints currently. (Bill Schneider) - Related Data Home Medications Medication Instructions Recorded Confirmed Cholecalciferol [Vitamin D3 (25 25 mcg PO DAILY 04/13/19 07/24/21 Mcg = 1000 Iu)] Multivitamins, Thera [Multivitamin 1 tab PO DAILY 06/27/20 07/24/21 (formulary)] amLODIPine [Norvasc] 5 mg PO HS 06/27/20 07/24/21 C,E,Zinc,Copper 11/Wtaqu1c/Lut 1 each PO DAILY 07/25/20 07/24/21 [Ocuvite Adult 50 Plus Softgel] Diclofenac Sodium/Misoprostol 1 each PO DAILY 07/25/20 07/24/21 [Diclofenac-Misoprost 75-200 Tb] Metoprolol Succinate (ER) [Toprol 25 mg PO DAILY 07/24/21 07/24/21 XL] Allergies Allergy/AdvReac Type Severity Reaction Status Date / Time Penicillins Allergy Severe Anaphylaxis Verified 11/09/21 20:02 Review of Systems ROS Other: All systems not noted in ROS Statement are negative. <Nehemiah Nuno - Last Filed: 12/21/21 16:31> ROS Other: All systems not noted in ROS Statement are negative. <Bill Schneider - Last Filed: 12/21/21 21:23> ROS Statement: Those systems with pertinent positive or pertinent negative responses have been documented in the HPI. Past Medical History Past Medical History: Eye Disorder, Hypertension, Osteoarthritis (OA) Additional Past Medical History / Comment(s): Hx. of DIVERTICULITIS, LT EYE MAC. DEGEN. HTN resolved after surgery., dysphagia History of Any Multi-Drug Resistant Organisms: None Reported Past Surgical History: Bariatric Surgery, Cholecystectomy, Orthopedic Surgery, Tubal Ligation Additional Past Surgical History / Comment(s): PAIN CLINIC INJECTIONS, RIGHT SHOULDER SX, COLONOSCOPY, EGD sleeve gastrectomy 02-01-18 Past Anesthesia/Blood Transfusion Reactions: No Reported Reaction Additional Past Anesthesia/Blood Transfusion Reaction / Comment(s): Pt states that in June [address] Mckeon attempted to perform an EGD with dilation, the procedure had to be cancelled because she experienced a BP "way over 200 when they put me under" Past Psychological History: No Psychological Hx Reported Smoking Status: Never smoker Past Alcohol Use History: Daily Past Drug Use History: None Reported - Past Family History Mother Family Medical History: CVA/TIA Father Family Medical History: Myocardial Infarction (NH) <Bill Schneider - Last Filed: 12/21/21 21:23> General Exam General appearance: alert, in no apparent distress Head exam: Present: atraumatic, normocephalic, normal inspection Eye exam: Present: normal appearance, PERRL, EOMI. Absent: scleral icterus, conjunctival injection, periorbital swelling ENT exam: Present: normal exam, mucous membranes moist Neck exam: Present: normal inspection. Absent: tenderness, meningismus, lymphadenopathy Respiratory exam: Present: normal lung sounds bilaterally. Absent: respiratory distress, wheezes, rales, rhonchi, stridor Cardiovascular Exam: Present: regular rate, normal rhythm, normal heart sounds. Absent: systolic murmur, diastolic murmur, rubs, gallop, clicks GI/Abdominal exam: Present: soft, normal bowel sounds. Absent: distended, tenderness, guarding, rebound, rigid Extremities exam: Present: normal inspection, full ROM, normal capillary refill. Absent: tenderness, pedal edema, joint swelling, calf tenderness Back exam: Present: normal inspection Neurological exam: Present: alert, oriented X3, CN II-XII intact Psychiatric exam: Present: normal affect, normal mood Skin exam: Present: warm, dry, intact, normal color. Absent: rash <Bill Schneider - Last Filed: 12/21/21 21:23> Course <Nehemiah Nuno - Last Filed: 12/21/21 16:31> <Bill Schneider - Last Filed: 12/21/21 21:23> Vital Signs 12/20/21 12/20/21 12/21/21 23:30 23:33 01:06 Temperature 97.9 F 97.8 F Pulse Rate 94 86 80 Respiratory 16 16 16 Rate Blood Pressure 126/72 126/72 147/101 O2 Sat by Pulse 99 100 99 Oximetry 12/21/21 12/21/21 02:09 02:16 Temperature Pulse Rate 99 80 Respiratory 16 16 Rate Blood Pressure 136/82 138/72 O2 Sat by Pulse 99 100 Oximetry - Reevaluation(s) Reevaluation #1: 12/21/21 16:30 I received a phone call approximately 15 minutes ago from the lab or matting that the patient's troponin was 0.035 which is just above the cutoff for normal. I informed charge nurse who is attempting to contact the patient to check on their status and inform of the lab result. (Nehemiah Nuno) Reevaluation #2: 12/21/21 Patient informed of results and questions answered remains in normal sinus rhythm without chest pain (Bill Schneider) Reevaluation #3: 12/21/21 Patient feels improved and okay for discharge home (Bill Schneider) EKG Findings - EKG Comments: EKG Findings:: EKG is sinus 89 CT 150 QRS 86 QTC 390 <Bill Schneider - Last Filed: 12/21/21 21:23> Medical Decision Making - Lab Data Result diagrams: 12/21/21 01:57 12/21/21 01:57 <Nehemiah Nuno - Last Filed: 12/21/21 16:31> - Lab Data Result diagrams: 12/21/21 01:57 12/21/21 01:57 - EKG Data -: EKG Interpreted by Me (EKG is sinus 89 CT 150 QRS 86 QTC 390) <Bill Schneider - Last Filed: 12/21/21 21:23> - Lab Data Lab Results 12/21/21 12/21/21 12/21/21 Range/Units 01:57 01:57 01:57 WBC 8.0 (3.8-10.6) k/uL RBC 4.59 (3.80-5.40) m/uL Hgb 12.8 (11.4-16.0) gm/dL Hct 40.2 (34.0-46.0) % MCV 87.5 (80.0-100.0) fL MCH 27.9 (25.0-35.0) pg MCHC 31.9 (31.0-37.0) g/dL RDW 13.0 (11.5-15.5) % Plt Count 200 (150-450) k/uL MPV 9.1 Neutrophils % 75 % Lymphocytes % 13 % Monocytes % 6 % Eosinophils % 3 % Basophils % 0 % Neutrophils # 6.0 (1.3-7.7) k/uL Lymphocytes # 1.1 (1.0-4.8) k/uL Monocytes # 0.4 (0-1.0) k/uL Eosinophils # 0.3 (0-0.7) k/uL Basophils # 0.0 (0-0.2) k/uL PT 11.3 (9.0-12.0) sec INR 1.0 (<1.2) APTT 21.1 L (22.0-30.0) sec Sodium 140 (137-145) mmol/L Potassium 4.2 (3.5-5.1) mmol/L Chloride 108 H (98-107) mmol/L Carbon Dioxide 18 L (22-30) mmol/L Anion Gap 14 mmol/L BUN 19 H (7-17) mg/dL Creatinine 0.70 (0.52-1.04) mg/dL Est GFR (CKD-EPI)AfAm >90 (>60 ml/min/1.73 sqM) Est GFR (CKD-EPI)NonAf 83 (>60 ml/min/1.73 sqM) Glucose 109 H (74-99) mg/dL Calcium 8.7 (8.4-10.2) mg/dL Phosphorus 3.9 (2.5-4.5) mg/dL Magnesium Cancelled Total Bilirubin 0.3 (0.2-1.3) mg/dL AST 29 (14-36) U/L ALT 15 (4-34) U/L Alkaline Phosphatase 134 H (38-126) U/L Troponin I (0.000-0.034) ng/mL NT-Pro-B Natriuret Pep pg/mL Total Protein 6.5 (6.3-8.2) g/dL Albumin 3.5 (3.5-5.0) g/dL TSH 3.480 (0.465-4.680) mIU/L 12/21/21 12/21/21 Range/Units 01:57 01:57 WBC (3.8-10.6) k/uL RBC (3.80-5.40) m/uL Hgb (11.4-16.0) gm/dL Hct (34.0-46.0) % MCV (80.0-100.0) fL MCH (25.0-35.0) pg MCHC (31.0-37.0) g/dL RDW (11.5-15.5) % Plt Count (150-450) k/uL MPV Neutrophils % % Lymphocytes % % Monocytes % % Eosinophils % % Basophils % % Neutrophils # (1.3-7.7) k/uL Lymphocytes # (1.0-4.8) k/uL Monocytes # (0-1.0) k/uL Eosinophils # (0-0.7) k/uL Basophils # (0-0.2) k/uL PT (9.0-12.0) sec INR (<1.2) APTT (22.0-30.0) sec Sodium (137-145) mmol/L Potassium (3.5-5.1) mmol/L Chloride (98-107) mmol/L Carbon Dioxide (22-30) mmol/L Anion Gap mmol/L BUN (7-17) mg/dL Creatinine (0.52-1.04) mg/dL Est GFR (CKD-EPI)AfAm (>60 ml/min/1.73 sqM) Est GFR (CKD-EPI)NonAf (>60 ml/min/1.73 sqM) Glucose (74-99) mg/dL Calcium (8.4-10.2) mg/dL Phosphorus (2.5-4.5) mg/dL Magnesium Total Bilirubin (0.2-1.3) mg/dL AST (14-36) U/L ALT (4-34) U/L Alkaline Phosphatase (38-126) U/L Troponin I 0.035 H* (0.000-0.034) ng/mL NT-Pro-B Natriuret Pep 591 pg/mL Total Protein (6.3-8.2) g/dL Albumin (3.5-5.0) g/dL TSH (0.465-4.680) mIU/L Disposition <Nehemiah Nuno - Last Filed: 12/21/21 16:31> Is patient prescribed a controlled substance at d/c from ED?: No Time of Disposition: 06:00 <Bill Schneider - Last Filed: 12/21/21 21:23> Clinical Impression: Atrial fibrillation, Weakness Disposition: HOME SELF-CARE Condition: Fair Instructions (If sedation given, give patient instructions): A-fib (Atrial Fibrillation) (ED) Referrals: Sheila Abreu MD [Primary Care Provider] - 1-2 days
[2021-12-20 23:33] VITALS: RESP 16
[2021-12-20 23:34] VITALS: TEMP 97.8
[2021-12-21] MEDS ORDERED: MORPHINE SULFATE 4 MG/ML SYRINGE IVP STA (01:53)
[2021-12-21] MEDS ORDERED: diphenhydrAMINE 50 MG/ML 1 ML VIAL IVP STA (02:09)
[2021-12-21 02:16] VITALS: BP 138/72; PULSE 80
[2021-12-21 14:23] LABS: Basophils % (A) 0 %; Eosinophils # (A) 0.3 k/uL (0-0.7); Eosinophils % (A) 3 %; HCT 40.2 % (34.0-46.0); HGB 12.8 gm/dL (11.4-16.0); Lymphocytes # (A) 1.1 k/uL (1.0-4.8); Lymphocytes % (A) 13 %; MCH 27.9 pg (25.0-35.0); MCHC 31.9 g/dL (31.0-37.0); MCV 87.5 fL (80.0-100.0); Mean Platelet Volume 9.1; Monocytes # (A) 0.4 k/uL (0-1.0); Monocytes % (A) 6 %; Neutrophils % (A) 75 %; Platelet Count 200 k/uL (150-450); RBC 4.59 m/uL (3.80-5.40)
[2021-12-21 14:26] LABS: Partial Thromboplastin Time 21.1 sec (22.0-30.0); Prothrombin Time 11.3 sec (9.0-12.0)
[2021-12-21 15:08] LABS: ALT 15 U/L (4-34); AST 29 U/L (14-36); African American GFR (CKD) >90 (>60 ml/min/1.73 sqM); Albumin 3.5 g/dL (3.5-5.0); Alkaline Phosphatase 134 U/L (38-126); Anion Gap 14 mmol/L; Blood Urea Nitrogen 19 mg/dL (7-17); Calcium 8.7 mg/dL (8.4-10.2); Carbon Dioxide 18 mmol/L (22-30); Chloride 108 mmol/L (98-107); Glucose 109 mg/dL (74-99); Non-African American GFR(CKD) 83 (>60 ml/min/1.73 sqM); Phosphorus 3.9 mg/dL (2.5-4.5); Potassium 4.2 mmol/L (3.5-5.1); Sodium 140 mmol/L (137-145); Total Bilirubin 0.3 mg/dL (0.2-1.3); Total Protein 6.5 g/dL (6.3-8.2)
== END 2021-12-21 09:58 | disposition home or self-care (01) ==
LOC: EC 23:23
DX: I48.91 Unspecified atrial fibrillation (principal); R53.1 Weakness; I10 Essential (primary) hypertension; M19.90 Unspecified osteoarthritis, unspecified site; Z88.0 Allergy status to penicillin; Z79.899 Other long term (current) drug therapy
CPT/HCPCS: 93005; 36415; 83880; 80053; 84100; 84443; 84484; 85025; 85610; 85730; 99285; 96374; 96375; 96361 ×10; J2270; J1200

== ENCOUNTER 2021-12-27 09:49 | Inpatient (IN) | payer MEDICARE, OTHER ==
[2021-12-27] MEDS ORDERED: IPRATROPIUM-ALBUTEROL 3 ML NEB INHALATION STA (10:35)
--- NOTE | 2021-12-27 10:35 | ED ---
General Adult HPI - General Chief complaint: Shortness of Breath Stated complaint: Dyspnea Time Seen by Provider: 12/27/21 10:19 Source: patient, old records reviewed (Previous CT, chest x-ray and notes) Mode of arrival: ambulatory Limitations: no limitations - History of Present Illness Initial comments: Patient is a pleasant 76-year-old female presenting to the emergency Department with cough and dyspnea. Patient has had some symptoms intermittently for the past few months. A paulette recently had chest x-ray and computed tomography scan concerning for lung mass and pneumonia. Patient has been on antibiotics a couple of times recently. A paulette did receive a call from her doctor who recommended she come to the hospital and will need bronchoscopy. Patient does feel short of breath. Patient does have cough with some green sputum the past few days. No fever. No history of chronic lung problems. - Related Data Home Medications Medication Instructions Recorded Confirmed Cholecalciferol [Vitamin D3 (25 25 mcg PO DAILY 04/13/19 07/24/21 Mcg = 1000 Iu)] Multivitamins, Thera [Multivitamin 1 tab PO DAILY 06/27/20 07/24/21 (formulary)] amLODIPine [Norvasc] 5 mg PO HS 06/27/20 07/24/21 C,E,Zinc,Copper 11/Zfcdw1e/Lut 1 each PO DAILY 07/25/20 07/24/21 [Ocuvite Adult 50 Plus Softgel] Diclofenac Sodium/Misoprostol 1 each PO DAILY 07/25/20 07/24/21 [Diclofenac-Misoprost 75-200 Tb] Metoprolol Succinate (ER) [Toprol 25 mg PO DAILY 07/24/21 07/24/21 XL] Allergies Allergy/AdvReac Type Severity Reaction Status Date / Time Penicillins Allergy Severe Anaphylaxis Verified 12/27/21 09:57 Review of Systems ROS Statement: Those systems with pertinent positive or pertinent negative responses have been documented in the HPI. ROS Other: All systems not noted in ROS Statement are negative. Constitutional: Denies: fever Eyes: Denies: eye pain ENT: Denies: ear pain Respiratory: Reports: as per HPI, cough, dyspnea Cardiovascular: Denies: chest pain Endocrine: Denies: fatigue Gastrointestinal: Denies: abdominal pain Genitourinary: Denies: dysuria Musculoskeletal: Denies: back pain Skin: Denies: rash Neurological: Denies: weakness Past Medical History Past Medical History: Eye Disorder, Hypertension, Osteoarthritis (OA) Additional Past Medical History / Comment(s): Hx. of DIVERTICULITIS, LT EYE MAC. DEGEN. HTN resolved after surgery., dysphagia History of Any Multi-Drug Resistant Organisms: None Reported Past Surgical History: Bariatric Surgery, Cholecystectomy, Orthopedic Surgery, T ubal Ligation Additional Past Surgical History / Comment(s): PAIN CLINIC INJECTIONS, RIGHT SHOULDER SX, COLONOSCOPY, EGD sleeve gastrectomy 02-01-18 Past Anesthesia/Blood Transfusion Reactions: No Reported Reaction Additional Past Anesthesia/Blood Transfusion Reaction / Comment(s): Pt states that in June [address] Mckeon attempted to perform an EGD with dilation, the procedure had to be cancelled because she experienced a BP "way over 200 when they put me under" Past Psychological History: No Psychological Hx Reported Smoking Status: Never smoker Past Alcohol Use History: Daily Past Drug Use History: None Reported - Past Family History Mother Family Medical History: CVA/TIA Father Family Medical History: Myocardial Infarction ([place]) General Exam Limitations: no limitations General appearance: alert, in no apparent distress Head exam: Present: normocephalic Eye exam: Present: normal appearance Neck exam: Present: normal inspection Respiratory exam: Present: wheezes, rhonchi Cardiovascular Exam: Present: regular rate, normal rhythm GI/Abdominal exam: Present: soft. Absent: tenderness Extremities exam: Present: normal inspection Neurological exam: Present: alert Psychiatric exam: Present: normal affect, normal mood Skin exam: Present: normal color Course Vital Signs 12/27/21 12/27/21 12/27/21 09:54 11:27 11:34 Temperature 98.1 F Pulse Rate 75 56 L 60 Respiratory 22 16 18 Rate Blood Pressure 136/54 O2 Sat by Pulse 96 Oximetry EKG Findings - EKG Comments: EKG Findings:: Sinus rhythm rate 61. AR 142. QRS 88. QT 411. QTC 413. Normal axis. Normal QRS. No acute ST change. Medical Decision Making - Medical Decision Making Patient made aware of plan. Case discussed with Dr. Abreu who is familiar with this patient and will admit with pulmonary consult and antibiotics. - Lab Data Result diagrams: 12/27/21 12:23 12/27/21 12:23 Lab Results 11/11/22 11/11/22 11/11/22 Range/Units 10:57 12:23 12:23 WBC 7.6 (3.8-10.6) k/uL RBC 4.37 (3.80-5.40) m/uL Hgb 12.5 (11.4-16.0) gm/dL Hct 38.0 (34.0-46.0) % MCV 87.0 (80.0-100.0) fL MCH 28.5 (25.0-35.0) pg MCHC 32.7 (31.0-37.0) g/dL RDW 13.0 (11.5-15.5) % Plt Count 166 (150-450) k/uL MPV 8.6 Neutrophils % 71 % Lymphocytes % 15 % Monocytes % 6 % Eosinophils % 4 % Basophils % 1 % Neutrophils # 5.4 (1.3-7.7) k/uL Lymphocytes # 1.2 (1.0-4.8) k/uL Monocytes # 0.5 (0-1.0) k/uL Eosinophils # 0.3 (0-0.7) k/uL Basophils # 0.0 (0-0.2) k/uL PT (9.0-12.0) sec INR (<1.2) APTT (22.0-30.0) sec Sodium 138 (137-145) mmol/L Potassium 4.6 (3.5-5.1) mmol/L Chloride 102 (98-107) mmol/L Carbon Dioxide 27 (22-30) mmol/L Anion Gap 9 mmol/L BUN 15 (7-17) mg/dL Creatinine 0.83 (0.52-1.04) mg/dL Est GFR (CKD-EPI)AfAm 79 (>60 ml/min/1.73 sqM) Est GFR (CKD-EPI)NonAf 68 (>60 ml/min/1.73 sqM) Glucose 87 (74-99) mg/dL Plasma Lactic Acid Ervin (0.7-2.0) mmol/L Calcium 8.7 (8.4-10.2) mg/dL Total Bilirubin 0.6 (0.2-1.3) mg/dL AST 26 (14-36) U/L ALT 16 (4-34) U/L Alkaline Phosphatase 129 H (38-126) U/L Total Protein 6.9 (6.3-8.2) g/dL Albumin 3.8 (3.5-5.0) g/dL Coronavirus (PCR) Not Detected (Not Detectd) 12/27/21 12/27/21 Range/Units 12:34 12:34 WBC (3.8-10.6) k/uL RBC (3.80-5.40) m/uL Hgb (11.4-16.0) gm/dL Hct (34.0-46.0) % MCV (80.0-100.0) fL MCH (25.0-35.0) pg MCHC (31.0-37.0) g/dL RDW (11.5-15.5) % Plt Count (150-450) k/uL MPV Neutrophils % % Lymphocytes % % Monocytes % % Eosinophils % % Basophils % % Neutrophils # (1.3-7.7) k/uL Lymphocytes # (1.0-4.8) k/uL Monocytes # (0-1.0) k/uL Eosinophils # (0-0.7) k/uL Basophils # (0-0.2) k/uL PT 10.8 (9.0-12.0) sec INR 1.0 (<1.2) APTT 24.3 (22.0-30.0) sec Sodium (137-145) mmol/L Potassium (3.5-5.1) mmol/L Chloride (98-107) mmol/L Carbon Dioxide (22-30) mmol/L Anion Gap mmol/L BUN (7-17) mg/dL Creatinine (0.52-1.04) mg/dL Est GFR (CKD-EPI)AfAm (>60 ml/min/1.73 sqM) Est GFR (CKD-EPI)NonAf (>60 ml/min/1.73 sqM) Glucose (74-99) mg/dL Plasma Lactic Acid Ervin 1.2 (0.7-2.0) mmol/L Calcium (8.4-10.2) mg/dL Total Bilirubin (0.2-1.3) mg/dL AST (14-36) U/L ALT (4-34) U/L Alkaline Phosphatase (38-126) U/L Total Protein (6.3-8.2) g/dL Albumin (3.5-5.0) g/dL Coronavirus (PCR) (Not Detectd) - Radiology Data Radiology results: image reviewed (Chest x-ray interpreted by myself shows right upper lobe mass.) Disposition Clinical Impression: Lung mass Disposition: ADMITTED IP TO THIS HOSP Is patient prescribed a controlled substance at d/c from ED?: No Referrals: Sheila Abreu MD [Primary Care Provider] - 1-2 days Time of Disposition: 13:36
--- NOTE | 2021-12-27 11:56 | XR ---
EXAMINATION TYPE: XR chest 2V DATE OF EXAM: 12/27/2021 COMPARISON: CT chest 12/19/2021 INDICATION: Cough, known lung mass TECHNIQUE: Frontal and lateral views of the chest are obtained. FINDINGS: The heart size is normal. The pulmonary vasculature is normal. There is a irregular density in the right apex measuring approximately 4.6 cm. This corresponds to th e abnormality on CT examination. There is some rounding near the [place] compatible with the abnormal lymph node identified on CT examination in the subcarinal region. Right mediastinal adenopathy is not as clearly evident but present. IMPRESSION: 1. Right apical mass with suspected mediastinal adenopathy. Findings correspond to the CT of 2.
[2021-12-27 12:38] LABS: Basophils % (A) 1 %; Eosinophils # (A) 0.3 k/uL (0-0.7); Eosinophils % (A) 4 %; HGB 12.5 gm/dL (11.4-16.0); Lymphocytes # (A) 1.2 k/uL (1.0-4.8); Lymphocytes % (A) 15 %; MCH 28.5 pg (25.0-35.0); MCHC 32.7 g/dL (31.0-37.0); Mean Platelet Volume 8.6; Monocytes # (A) 0.5 k/uL (0-1.0); Monocytes % (A) 6 %; Neutrophils # (A) 5.4 k/uL (1.3-7.7); Neutrophils % (A) 71 %; Platelet Count 166 k/uL (150-450); RBC 4.37 m/uL (3.80-5.40); WBC 7.6 k/uL (3.8-10.6)
[2021-12-27 12:49] LABS: Albumin 3.8 g/dL (3.5-5.0); Calcium 8.7 mg/dL (8.4-10.2); Potassium 4.6 mmol/L (3.5-5.1); Total Bilirubin 0.6 mg/dL (0.2-1.3); Total Protein 6.9 g/dL (6.3-8.2)
[2021-12-27 12:56] LABS: Partial Thromboplastin Time 24.3 sec (22.0-30.0); Prothrombin Time 10.8 sec (9.0-12.0)
[2021-12-27] MEDS ORDERED: IPRATROPIUM-ALBUTEROL 3 ML NEB INHALATION PRN (13:37)
[2021-12-27] MEDS ORDERED: LEVOFLOXACIN 750MG-D5W PMX 750 MG in DEXTROSE/WATER 1 150ML.BAG IVPB STA (13:37)
[2021-12-27] MEDS ORDERED: PNEUMONIA PROTOCOL UTILIZED 1 EACH MISC PO PRN (13:37)
[2021-12-27] MEDS ORDERED: HYDROcodone/APAP 5-325MG 1 EACH TAB PO STA (14:05)
[2021-12-27] MEDS: IPRATROPIUM-ALBUTEROL 3 ML NEB INHALATION SCH ×2 (15:00→19:24)
--- NOTE | 2021-12-27 15:32 | P.CNPUL ---
History of Present Illness Consult date: 12/27/21 Requesting physician: Sheila Abreu Reason for consult: lung mass Chief complaint: Cough and shortness of breath History of present illness: This is a 76-year-old female, familiar to my service, I saw this patient for the first time couple of weeks ago, patient was referred to me for symptoms of chronic cough, wheezing, and shortness of breath. Patient had a chest x-ray in my office, and it was consistent with right lung mass, possible lung cancer. Patient was advised to have a CT of the chest. This was done on 12/19/21, it showed large irregular mass in the right upper lobe it also showed additional paraspinal and right lower lobe nodules, multiple enlarged lymph nodes/mediastinal lymph nodes, clearly suspicious for primary lung carcinoma. 3 opacities noted in the right middle lobe and anterior right lower lobe, suspicious for underlying mass also. There is also evidence of irregular lobular mass in the right infrahilar region. Patient was notified about her abnormal CT of the chest, and I recommended a PET scan supposedly was scheduled to be done in 2 weeks from today, apparently the patient continued to have mostly symptoms of cough and shortness of breath, she was seen in the ER today, and considering the abnormalities, she was admitted. I saw the patient in the ER, and now I'm recommending bronchoscopy with possible transbronchial biopsies Transcarinal needle aspiration of mediastinal lymph nodes, and once a tissue diagnosis is made, patient will have outpatient follow-up with oncology. Obviously based on the findings , this is clearly a relatively far advanced bronchogenic carcinoma. Patient has no symptoms of cough, cough is productive with whitish phlegm, no hemoptysis, no fever, no chills, but she lost about 24 pounds in the last few months, she lost 4 pounds in the last 2 weeks Review of Systems Constitutional: Weight loss, 24 pounds in the last few months, no fever no chills. HEENT: Negative Pulmonary: As noted in HPI mostly cough and shortness of breath and wheezing Cardiac: Negative GI: Negative Genitourinary: Negative Musculoskeletal: Negative Hematologic: Negative Psychiatric: Negative Endocrine: Negative Neurologic: Negative Skin: Negative Past Medical History Past Medical History: Eye Disorder, Hypertension, Osteoarthritis (OA) Additional Past Medical History / Comment(s): Hx. of DIVERTICULITIS, LT EYE MAC. DEGEN. HTN resolved after surgery., dysphagia History of Any Multi-Drug Resistant Organisms: None Reported Past Surgical History: Bariatric Surgery, Cholecystectomy, Orthopedic Surgery, Tubal Ligation Additional Past Surgical History / Comment(s): PAIN CLINIC INJECTIONS, RIGHT SHOULDER SX, COLONOSCOPY, EGD sleeve gastrectomy 02-01-18 Past Anesthesia/Blood Transfusion Reactions: No Reported Reaction Additional Past Anesthesia/Blood Transfusion Reaction / Comment(s): Pt states that in June [address] Mckeon attempted to perform an EGD with dilation, the procedure had to be cancelled because she experienced a BP "way over 200 when they put me under" Past Psychological History: No Psychological Hx Reported Smoking Status: Never smoker Past Alcohol Use History: Daily Past Drug Use History: None Reported - Past Family History Mother Family Medical History: CVA/TIA Father Family Medical History: Myocardial Infarction ([place]) Medications and Allergies Home Medications Medication Instructions Recorded Confirmed Type amLODIPine [Norvasc] 5 mg PO DAILY 06/27/20 12/27/21 History HYDROcodone/APAP 10-325MG [[place] 0.5 tab PO TID 12/27/21 12/27/21 History 10-325] Metoprolol Tartrate [Lopressor] 25 mg PO DAILY 12/27/21 12/27/21 History Allergies Allergy/AdvReac Type Severity Reaction Status Date / Time Penicillins Allergy Severe Anaphylaxis Verified 12/27/21 14:29 Physical Exam Vitals: Vital Signs Temp Pulse Resp BP Pulse Ox 12/27/21 15:11 60 18 12/27/21 15:01 62 18 95 12/27/21 13:56 63 18 117/46 96 12/27/21 11:34 60 18 12/27/21 11:27 56 L 16 12/27/21 09:54 98.1 F 75 22 136/54 96 Intake and Output 12/27/21 12/27/21 12/27/21 06:59 14:59 22:59 Other: Weight 84.822 kg Physical Exam: Revealed 76-year-old female in no distress. Head: Atraumatic, normocephalic. HEENT:[Neck is supple.] [No neck masses.] [No thyromegaly.] [No JVD.] Chest: Scattered rhonchi noted bilaterally more so on forced expiratory maneuver. Cardiac Exam: [Normal S1 and S2, no S3 gallop, no murmur.] Abdomen: [Soft, nontender, no megaly, no rebound, no guarding, normal bowel sounds.] Extremities: [No clubbing, no edema, no cyanosis.] Neurological Exam: [No focal neurologic deficit.] Alert and oriented 3, no gross focal deficit Psychiatric: Normal mood affect and normal mental status examination. Neurologic: Alert oriented 3 no gross focal deficits. Skin: No rashes. Results - Laboratory Findings CBC and BMP: 12/27/21 12:23 12/27/21 12:23 PT/INR, D-dimer PT 10.8 sec (9.0-12.0) 12/27/21 12:34 INR 1.0 (<1.2) 12/27/21 12:34 Abnormal lab findings: Abnormal Labs 12/27/21 12:23 Alkaline Phosphatase 129 H - Diagnostic Findings CT scan - chest: image reviewed (As noted in HPI) Assessment and Plan Assessment: Impression: Advanced bronchogenic carcinoma Ex-smoker patient quit smoking about 18 years ago. Acute exacerbation of COPD Suspect postobstructive pneumonitis involving the right middle lobe Benign essential hypertension History of bariatric surgery/sleeve gastrectomy in 2018. Recommendation: Saw the patient in the ER and explained to the patient the results of her most recent CT of the chest, apparently she was already aware of the findings, and she was aware that she was scheduled for a PET scan on December 14. Will admit the patient and arrange for bronchoscopy tomorrow In the meantime we'll continue bronchodilators, patient finished a full course of antibiotics recently and has been on antibiotics all along. Placed patient on DuoNeb updrafts 4 times a day and when necessary Placed patient on Symbicort 160/4.5 2 puffs twice a day GI and DVT prophylaxis. Prognosis is guarded. We will continue to follow Time with Patient: Greater than 30
[2021-12-27] MEDS: SYMBICORT 160-4.5 MCG INHALER INHALATION SCH (19:24)
[2021-12-27] MEDS: HYDROcodone/APAP 10-325MG 1 EACH TAB PO SCH (21:07)
[2021-12-27] MEDS ORDERED: DILTIAZEM 125 MG in SODIUM CHLORIDE 0.9% 100 ML IV SCH (21:15)
[2021-12-28] MEDS: amLODIPine 5 MG TAB PO SCH (06:29)
[2021-12-28] MEDS: HYDROcodone/APAP 10-325MG 1 EACH TAB PO SCH (06:29)
--- NOTE | 2021-12-28 07:10 | XR ---
EXAMINATION TYPE: XR chest 2V DATE OF EXAM: 12/28/2021 COMPARISON: 12/27/2021 HISTORY: Shortness of breath TECHNIQUE: Frontal and lateral views of the chest are obtained. FINDINGS: Scattered senescent parenchymal changes noted. Hyperinflation compatible with COPD. Right upper lobe mass is redemonstrated measuring estimated 4.5 cm. Right hilar prominence suggested. Heart size is stable. No evidence for hilar prominence. Degenerative changes dorsal spine. IMPRESSION: 1. Stable chest.
[2021-12-28] MEDS ORDERED: METOPROLOL TARTRATE 25 MG TAB PO SCH (09:00)
[2021-12-28] MEDS: SYMBICORT 160-4.5 MCG INHALER INHALATION SCH ×2 (09:06→19:25)
[2021-12-28] MEDS: IPRATROPIUM-ALBUTEROL 3 ML NEB INHALATION SCH ×4 (09:06→19:25)
--- NOTE | 2021-12-28 11:16 | P.HPIM ---
History of Present Illness H&P Date: 12/27/21 Gracie Ybarra, is a 76-year-old female who presented to [facility] emergency room with a chief complaint of worsening shortness of breath and cough She was evaluated in the emergency room vital examination on presentation revealed a temperature of 98.1 pulse 75 respiration 22 blood pressure 136/54 pulse ox 96% on room air Laboratory data revealed a white blood count of 7.6 hemoglobin 12.5 platelet count 166 sodium 138 potassium 4.6 chloride 102 CO2 27 BUN 15 creatinine 0.83 coronavirus PCR was negative Testing in the emergency room revealed chest x-ray done in the emergency room revealed right apical mass with suspected mediastinal adenopathy. Finding correspond to computed tomography scan of 12/19/2021, she was admitted to medical floor pulmonary consultation was requested, patient was recently seen by Dr. Rocha in that regard to Patient was admitted to medical floor for further evaluation and treatment Past Medical History Past Medical History: Eye Disorder, Hypertension, Osteoarthritis (OA) Additional Past Medical History / Comment(s): Hx. of DIVERTICULITIS, LT EYE MAC. DEGEN. HTN resolved after surgery., dysphagia History of Any Multi-Drug Resistant Organisms: None Reported Past Surgical History: Bariatric Surgery, Cholecystectomy, Orthopedic Surgery, Tubal Ligation Additional Past Surgical History / Comment(s): RIGHT SHOULDER SX, COLONOSCOPY, EGD sleeve gastrectomy 02-01-18 Past Anesthesia/Blood Transfusion Reactions: No Reported Reaction Additional Past Anesthesia/Blood Transfusion Reaction / Comment(s): Pt states that in June [address] Mckeon attempted to perform an EGD with dilation, the procedure had to be cancelled because she experienced a BP "way over 200 when they put me under" Past Psychological History: No Psychological Hx Reported Smoking Status: Never smoker Past Alcohol Use History: Daily Additional Past Alcohol Use History / Comment(s): Quit smoking in 1999. Past Drug Use History: None Reported - Past Family History Mother Family Medical History: CVA/TIA Father Family Medical History: Myocardial Infarction ([place]) Medications and Allergies Home Medications Medication Instructions Recorded Confirmed Type amLODIPine [Norvasc] 5 mg PO DAILY 06/27/20 12/27/21 History HYDROcodone/APAP 10-325MG [[place] 0.5 tab PO TID 12/27/21 12/27/21 History 10-325] Metoprolol Tartrate [Lopressor] 25 mg PO DAILY 12/27/21 12/27/21 History Allergies Allergy/AdvReac Type Severity Reaction Status Date / Time Penicillins Allergy Severe Anaphylaxis Verified 12/27/21 14:29 morphine Allergy Rash/Hives Verified 12/27/21 16:25 Physical Exam Vitals: Vital Signs Temp Pulse Pulse Resp BP BP Pulse Ox 12/27/21 15:35 97.6 F 79 16 153/77 96 12/27/21 15:11 60 18 12/27/21 15:01 62 18 95 12/27/21 13:56 63 18 117/46 96 12/27/21 11:34 60 18 12/27/21 11:27 56 L 16 12/27/21 09:54 98.1 F 75 22 136/54 96 Intake and Output 12/27/21 12/27/21 12/27/21 06:59 14:59 22:59 Other: Weight 84.822 kg 84.822 kg In general patient is alert and oriented x 3 in no distress HEENT head normocephalic and atraumatic Neck is supple no JVD no goiter no lymphadenopathy no carotid bruit Chest examination is clear to auscultation no crackles no wheezing Cardiac exam reveals regular heart sounds S1 and S2 no gallops no murmurs Abdomen is soft nontender no organomegaly with normal bowel sounds Extremity exam reveals no edema no cyanosis or clubbing Neurological examination reveals no gross focal deficits Results CBC & Chem 7: 12/27/21 12:23 12/27/21 12:23 Labs: Abnormal Lab Results - Last 24 Hours (Table) 12/27/21 Range/Units 12:23 Alkaline Phosphatase 129 H (38-126) U/L Thrombosis Risk Factor Assmnt - Choose All That Apply Each Factor Represents 1 point: Obesity (BMI >25) Other Risk Factors: Yes Each Risk Factor Represents 2 Points: Age 61-74 years, Malignancy Other congenital or acquired thrombophilia - If yes, enter type in comment: No Thrombosis Risk Factor Assessment Total Risk Factor Score: 5 Thrombosis Risk Factor Assessment Level: High Risk Assessment and Plan Plan: Right upper lobe lung mass, highly suspicious for lung cancer, awaiting bronchoscopy and biopsy Underlying history of hypertension Underlying history of COPD Underlying history of degenerative disc disease with chronic back pain Underlying history of paroxysmal atrial fibrillation, patient was seen in emergency room with an episode of atrial fibrillation on 12/20/2021, and was subsequently discharged home Underlying history of diverticulosis with episodes of diverticulitis in the past Underlying history of osteoarthritis History of morbid obesity with sleeve gastrectomy in 2018 At this time patient is admitted to medical floor Pulmonary consultation requested plan is for bronchoscopy on 12/28/2021 Home medications reviewed and 3 ordered Will follow closely
--- NOTE | 2021-12-28 11:19 | P.PN ---
Subjective Progress Note Date: 12/28/21 Gracie Ybarra, is a 76-year-old female who presented to [facility] emergency room with a chief complaint of worsening shortness of breath and cough She was evaluated in the emergency room vital examination on presentation revealed a temperature of 98.1 pulse 75 respiration 22 blood pressure 136/54 pulse ox 96% on room air Laboratory data revealed a white blood count of 7.6 hemoglobin 12.5 platelet count 166 sodium 138 potassium 4.6 chloride 102 CO2 27 BUN 15 creatinine 0.83 coronavirus PCR was negative Testing in the emergency room revealed chest x-ray done in the emergency room revealed right apical mass with suspected mediastinal adenopathy. Finding correspond to computed tomography scan of 12/19/2021, she was admitted to medical floor pulmonary consultation was requested, patient was recently seen by Dr. Rocha in that regard to Patient was admitted to medical floor for further evaluation and treatment On 12/28/2021 patient was seen and examined on the telemetry floor, she is alert and oriented 3 in no apparent distress, she is complaining of low back pain otherwise she denies any complaints at this time, during the last night patient had an episode of atrial fibrillation with rapid ventricular response, she was transferred to telemetry floor, she was started on IV Cardizem drip and cardiology consultation was requested, at this time patient is in normal sinus rhythm, there is no fever or chills no headache or dizziness no chest pain no shortness of breath no cough no nausea or vomiting no abdominal pain no diarrhea no blood in the stools no burning with urination no frequency or urgency and no hematuria, bronchoscopy scheduled for this morning was postponed due to episode of atrial fibrillation. Objective - Vital Signs Vital signs: Vital Signs Temp 97.9 F 12/28/21 08:41 Pulse 74 12/28/21 09:17 Resp 18 12/28/21 08:41 BP 130/77 12/28/21 08:41 Pulse Ox 96 12/28/21 09:07 FiO2 21 12/28/21 09:07 Intake & Output 12/27/21 12/28/21 12/28/21 18:59 06:59 18:59 Weight 84.822 kg Other: # Voids 2 - Exam In general patient is alert and oriented x 3 in no distress HEENT head normocephalic and atraumatic Neck is supple no JVD no goiter no lymphadenopathy no carotid bruit Chest examination is clear to auscultation no crackles no wheezing Cardiac exam reveals regular heart sounds S1 and S2 no gallops no murmurs Abdomen is soft nontender no organomegaly with normal bowel sounds Extremity exam reveals no edema no cyanosis or clubbing Neurological examination reveals no gross focal deficits - Labs CBC & Chem 7: 12/27/21 12:23 12/27/21 12:23 Labs: Abnormal Lab Results - Last 24 Hours (Table) 12/27/21 Range/Units 12:23 Alkaline Phosphatase 129 H (38-126) U/L Assessment and Plan Plan: Right upper lobe lung mass, highly suspicious for lung cancer, awaiting bronchoscopy and biopsy Underlying history of hypertension Underlying history of COPD Underlying history of degenerative disc disease with chronic back pain Underlying history of paroxysmal atrial fibrillation, patient was seen in emergency room with an episode of atrial fibrillation on 12/20/2021, and was subsequently discharged home Underlying history of diverticulosis with episodes of diverticulitis in the past Underlying history of osteoarthritis History of morbid obesity with sleeve gastrectomy in 2018 At this time patient is admitted to medical floor Pulmonary consultation requested plan is for bronchoscopy on 12/28/2021 Home medications reviewed and 3 ordered Will follow closely
[2021-12-28 11:25] LABS: Basophils # (A) 0.03 X 10*3/uL (0.00-0.10); Basophils % (A) 0.4 %; Eosinophils # (A) 0.15 X 10*3/uL (0.04-0.35); Eosinophils % (A) 1.9 %; HCT 34.9 % (37.2-46.3); Immature Grans, Automated 0.4 %; Lymphocytes % (A) 8.7 %; MCHC 31.5 g/dL (32.0-37.0); MCV 85.5 fL (80.0-97.0); Monocytes # (A) 0.81 X 10*3/uL (0.20-1.00); NRBC Per 100 WBC 0 /100 WBCS (0.0-0.0); Neutrophils # (A) 6.34 X 10*3/uL (1.80-7.70); Neutrophils % (A) 78.6 %; Platelet Count 166 X 10*3/uL (140-440); RBC 4.08 X 10*6/uL (4.10-5.20); RDW 13.1 % (11.5-14.5); WBC 8.06 X 10*3/uL (4.50-10.00)
[2021-12-28 11:45] LABS: African American GFR (CKD) 81.8 (60.0-200.0); Albumin 3.5 g/dL (3.8-4.9); Albumin/Globulin Ratio 1.25 (1.60-3.17); Anion Gap 12.4 mmol/L (10.00-18.00); BUN/Creat Ratio 14.38 Ratio (12.00-20.00); Blood Urea Nitrogen 11.5 mg/dL (9.0-27.0); Calcium 8.8 mg/dL (8.7-10.3); Carbon Dioxide 23.6 mmol/L (20.0-27.5); Globulin 2.8 g/dL (1.6-3.3); Non-African American GFR(CKD) 70.6 (60.0-200.0); Total Bilirubin 0.4 mg/dL (0.30-1.20); Total Protein 6.3 g/dL (6.2-8.2)
[2021-12-28] MEDS: HYDROcodone/APAP 10-325MG 1 EACH TAB PO PRN ×2 (11:53→20:34)
--- NOTE | 2021-12-28 12:49 | P.PN ---
Subjective Progress Note Date: 12/28/21 Principal diagnosis: Lung mass, A. antonio This is a 76-year-old female, familiar to my service, I saw this patient for the first time couple of weeks ago, patient was referred to me for symptoms of chronic cough, wheezing, and shortness of breath. Patient had a chest x-ray in my office, and it was consistent with right lung mass, possible lung cancer. Patient was advised to have a CT of the chest. This was done on 12/19/21, it showed large irregular mass in the right upper lobe it also showed additional paraspinal and right lower lobe nodules, multiple enlarged lymph nodes/ mediastinal lymph nodes, clearly suspicious for primary lung carcinoma. 3 opacities noted in the right middle lobe and anterior right lower lobe, suspicious for underlying mass also. There is also evidence of irregular lobular mass in the right infrahilar region. Patient was notified about her ab normal CT of the chest, and I recommended a PET scan supposedly was scheduled to be done in 2 weeks from today, apparently the patient continued to have mostly symptoms of cough and shortness of breath, she was seen in the ER today, and considering the abnormalities, she was admitted. I saw the patient in the ER, and now I'm recommending bronchoscopy with possible transbronchial biopsies Transcarinal needle aspiration of mediastinal lymph nodes, and once a tissue diagnosis is made, patient will have outpatient follow-up with oncology. Obviously based on the findings , this is clearly a relatively far advanced bronchogenic carcinoma. Patient has no symptoms of cough, cough is productive with whitish phlegm, no hemoptysis, no fever, no chills, but she lost about 24 pounds in the last few months, she lost 4 pounds in the last 2 weeks The patient is seen today 12/28/2021 in follow-up on the selective care unit. She is currently sitting up in bed. Awake and alert in no acute distress. She is maintaining good O2 saturations in the 90s on room air. Afebrile. The plan was for bronchoscopy with biopsies today however last evening she developed atrial fibrillation with a rapid ventricular response and was initiated on a Cardizem drip currently at 5 mg per hour. She did convert it is currently in sinus rhythm. However she is not stable for procedure today.white count 8.0. Hemoglobin 11.0. Sodium 137. Potassium 4.0. BUN 11. Creatinine 0.8. She is continued on DuoNeb inhalations, Symbicort, and antibiotics in the form of Levaquin. chest x-ray continues to revealed right upper lobe mass. Right hilar prominence. Objective - Vital Signs Vital signs: Vital Signs Temp 97.9 F 12/28/21 12:13 Pulse 72 12/28/21 12:33 Resp 18 12/28/21 12:13 BP 124/62 12/28/21 12:13 Pulse Ox 97 12/28/21 12:13 FiO2 21 12/28/21 09:07 Intake & Output 12/27/21 12/28/21 12/28/21 18:59 06:59 18:59 Intake Total 65.25 Balance 65.25 Weight 84.822 kg Intake: Intake, IV Titration 65.25 Amount Diltiazem 125 mg In 65.25 Sodium Chloride 0.9% 100 ml @ 5 MG/HR 5 mls/hr IV .Q24H [facility] Rx#:[id number] Other: # Voids 2 - Exam GENERAL EXAM: Alert, very pleasant 76-year-old female, on room air, comfortable in no apparent distress. HEAD: Normocephalic. EYES: Normal reaction of pupils, equal size. NOSE: Clear with pink turbinates. THROAT: No erythema or exudates. NECK: No masses, no JVD. CHEST: No chest wall deformity. LUNGS: Equal air entry with no crackles, wheeze, rhonchi or dullness. CVS: S1 and S2 normal with no audible murmur, regular rhythm. ABDOMEN: No hepatosplenomegaly, normal bowel sounds, no guarding or rigidity. SPINE: No scoliosis or deformity SKIN: No rashes CENTRAL NERVOUS SYSTEM: No focal deficits, tone is normal in all 4 extremities. EXTREMITIES: There is no peripheral edema. No clubbing, no cyanosis. Peripheral pulses are intact. - Labs CBC & Chem 7: 12/28/21 07:37 12/28/21 07:37 Labs: Abnormal Lab Results - Last 24 Hours (Table) 12/27/21 12/28/21 12/28/21 Range/Units 12:23 07:37 07:37 RBC 4.08 L (4.10-5.20) X 10*6/uL Hgb 11.0 L (12.0-15.0) g/dL Hct 34.9 L (37.2-46.3) % MCHC 31.5 L (32.0-37.0) g/dL Lymphocytes # 0.70 L (0.90-5.00) X 10*3/uL Alkaline Phosphatase 129 H (38-126) U/L Albumin 3.5 L (3.8-4.9) g/dL Albumin/Globulin Ratio 1.25 L (1.60-3.17) g/dL Assessment and Plan Assessment: Advanced bronchogenic carcinoma with a right upper lobe mass measuring 4.5 cm with right hilar prominence Ex-smoker patient quit smoking about 18 years ago. Acute exacerbation of COPD Suspect postobstructive pneumonitis involving the right middle lobe Atrial fibrillation with rapid ventricular response, currently on a Cardizem drip Benign essential hypertension History of bariatric surgery/sleeve gastrectomy in 2018 Plan: The patient was seen and evaluated Chest x-ray, labs and medications reviewed Unable to perform bronchoscopy with biopsies today due to A. fib RVR Continued on a Cardizem drip We'll plan for bronchoscopy on 12/30/2021 Continue the current treatment plan Will continue to follow I have personally seen and examined the patient, performed the documentation and the assessment and plan as written. Number of minutes spent on the visit: 10.
--- NOTE | 2021-12-28 13:27 | P.CRDCN ---
History of Present Illness Consult date: 12/28/21 History of present illness: History of present illness: This is a 76-year-old female follows with Dr. ABEL Celis. She has history of hypertension, macular degeneration, osteoarthritis. She has been recently established with Dr. Villegas regarding chronic cough wheezing or shortness of breath finding a right lung mass suspicious for lung cancer. She underwent a CAT scan of the chest which revealed a large irregular mass in the right upper lobe and additional paraspinal and right lower lobe nodules, multiple enlarged lymph nodes mediastinal lymph nodes, clearly suspicious for primary lung carcinoma. A PET scan was recommended by Dr. Rocha which was scheduled. Due to increasing shortness of breath, patient came into [facility] for evaluation. She was found to be in A. fib with RVR. She also had a previous ER visit a week ago at which time she presented with A. fib and RVR but converted to sinus rhythm prior to arrival to the emergency center. Patient was not discharged with any new medications. Nonetheless, Dr. Villegas wa s planning for bronchoscopy but due to atrial fibrillation this was going to be canceled and scheduled for Thursday or Thursday of this week. Patient also complains of shakiness. No lightheadedness. She states she has episodes of feeling to read her nauseated. No syncopal episodes. She was initially started on a Cardizem drip which has been discontinued. Patient also states that she is a 'bleeder" and is concerned about being on anticoagulation for atrial fibrillation. Patient will need to hold anticoagulation until after bronchoscopy and lung biopsy is done. Recommended that the patient follow-up with Dr. ABEL Celis in the office and discuss options at that point. EKG atrial fibrillation with RVR with 131 bpm Chest x-ray stable. Right upper lobe mass 4.5 cm. Right hilar prominence s uggested. Hyperinflation compatible with COPD. CBC was unremarkable. CMP unremarkable except for blood sugar 129. Review Of Systems: Constitutional: No fever, no chills. No weakness, fatigue or lethargy. EENT: No headache. No dizziness. Lungs: No shortness of breath, cough, no sputum production. No wheezing. Cardiovascular: No chest pain, no lower extremity edema. No palpitations. No paroxysmal nocturnal dyspnea. No orthopnea. No lightheadedness or dizziness. No syncopal episodes. Abdominal: No abdominal pain. No nausea, vomiting. No diarrhea. No constipation. No bloody or tarry stools.. No loss of appetite. Genitourinary: No dysuria.. No urinary retention. Musculoskeletal: No myalgias. No muscle weakness, no gait dysfunction, no frequent falls. No back pain. No neck pain. Integumentary: No wounds, no lesions. No rash or pruritus. No unusual bruising. Neurologic: No aphasia. No facial droop. No change in mentation. No head injury. No headache. No paralysis. No paresthesia. Psychiatric: No depression. No anxiety. Endocrine: No abnormal blood sugars. Physical examination: Gen: This is a [ ] VS:afebrile, heart rate in the 70s and 80s, blood pressure 124/62, pulse ox 97% on room air. HEENT: Head is atraumatic, normocephalic. Pupils equal, round. Sclerae is anicteric. NECK: Supple. No JVD. No lymphadenopathy. No thyromegaly. LUNGS: Clear to auscultation. No wheezes or rhonchi. No intercostal retractions. HEART: Regular rate and rhythm. No murmur. ABDOMEN: Soft. Bowel sounds are present. No masses. No tenderness. EXTREMITIES: No pedal edema. No calf tenderness. NEUROLOGICAL: Patient is awake, alert and oriented x3. Cranial nerves 2 through 12 are grossly intact. Assessment: New onset atrial fibrillation, paroxysmal atrial fibrillation Suspicious primary lung carcinoma COPD Postobstructive pneumonitis Remote history of tobacco use. Plan: Increase Lopressor to 25 mg twice daily Hold on anticoagulation due to need for bronchoscopy and lung biopsy.Patient is resistant to idea of anticoagulation. Recommend that she follow-up with Dr. ABEL Celis in the office and discuss in more detail. Further recommendations to follow based upon clinical course Thank you kindly for this consultation. Nurse practitioner note has been reviewed, I agree with documented findings and plan of care. Patient was seen and examined. Past Medical History Past Medical History: Eye Disorder, Hypertension, Osteoarthritis (OA) Additional Past Medical History / Comment(s): Hx. of DIVERTICULITIS, LT EYE MAC. DEGEN. HTN resolved after surgery., dysphagia History of Any Multi-Drug Resistant Organisms: None Reported Past Surgical History: Bariatric Surgery, Cholecystectomy, Orthopedic Surgery, Tubal Ligation Additional Past Surgical History / Comment(s): RIGHT SHOULDER SX, COLONOSCOPY, EGD sleeve gastrectomy 02-01-18 Past Anesthesia/Blood Transfusion Reactions: No Reported Reaction Additional Past Anesthesia/Blood Transfusion Reaction / Comment(s): Pt states th at in June [address] Mckeon attempted to perform an EGD with dilation, the procedure had to be cancelled because she experienced a BP "way over 200 when they put me under" Past Psychological History: No Psychological Hx Reported Smoking Status: Never smoker Past Alcohol Use History: Daily Additional Past Alcohol Use History / Comment(s): Quit smoking in 1999. Past Drug Use History: None Reported - Past Family History Mother Family Medical History: CVA/TIA Father Family Medical History: Myocardial Infarction ([place]) Medications and Allergies Home Medications Medication Instructions Recorded Confirmed Type amLODIPine [Norvasc] 5 mg PO DAILY 06/27/20 12/27/21 History HYDROcodone/APAP 10-325MG [[place] 0.5 tab PO TID 12/27/21 12/27/21 History 10-325] Metoprolol Tartrate [Lopressor] 25 mg PO BID #60 tab 12/28/21 Rx Allergies Allergy/AdvReac Type Severity Reaction Status Date / Time Penicillins Allergy Severe Anaphylaxis Verified 12/27/21 14:29 morphine Allergy Rash/Hives Verified 12/27/21 16:25 Physical Exam Vitals: Vital Signs Temp Pulse Pulse Resp BP BP Pulse Ox 12/28/21 09:17 74 12/28/21 09:07 74 96 12/28/21 08:41 97.9 F 70 18 130/77 96 12/28/21 04:00 98.8 F 80 19 127/69 95 12/27/21 23:49 82 18 117/70 98 12/27/21 21:37 98.0 F 99 19 128/73 97 12/27/21 20:00 147 H 139/80 12/27/21 19:37 64 12/27/21 19:25 62 12/27/21 18:15 98.5 F 74 19 123/74 95 12/27/21 15:35 97.6 F 79 16 153/77 96 12/27/21 15:11 60 18 12/27/21 15:01 62 18 95 12/27/21 13:56 63 18 117/46 96 12/27/21 13:37 96 12/27/21 11:34 60 18 12/27/21 11:27 56 L 16 FiO2 12/28/21 09:17 12/28/21 09:07 21 12/28/21 08:41 12/28/21 04:00 12/27/21 23:49 12/27/21 21:37 12/27/21 20:00 12/27/21 19:37 12/27/21 19:25 12/27/21 18:15 12/27/21 15:35 12/27/21 15:11 12/27/21 15:01 12/27/21 13:56 12/27/21 13:37 12/27/21 11:34 12/27/21 11:27 Intake and Output 12/27/21 12/28/21 12/28/21 22:59 06:59 14:59 Other: # Voids 2 Weight 84.822 kg Results 12/28/21 07:37 12/28/21 07:37 Cardiac Enzymes 12/27/21 Range/Units 12:23 AST 26 (14-36) U/L Coagulation 12/27/21 Range/Units 12:34 PT 10.8 (9.0-12.0) sec APTT 24.3 (22.0-30.0) sec CBC 12/27/21 Range/Units 12:23 WBC 7.6 (3.8-10.6) k/uL RBC 4.37 (3.80-5.40) m/uL Hgb 12.5 (11.4-16.0) gm/dL Hct 38.0 (34.0-46.0) % Plt Count 166 (150-450) k/uL Comprehensive Metabolic Panel 12/27/21 Range/Units 12:23 Sodium 138 (137-145) mmol/L Potassium 4.6 (3.5-5.1) mmol/L Chloride 102 (98-107) mmol/L Carbon Dioxide 27 (22-30) mmol/L BUN 15 (7-17) mg/dL Creatinine 0.83 (0.52-1.04) mg/dL Glucose 87 (74-99) mg/dL Calcium 8.7 (8.4-10.2) mg/dL AST 26 (14-36) U/L ALT 16 (4-34) U/L Alkaline Phosphatase 129 H (38-126) U/L Total Protein 6.9 (6.3-8.2) g/dL Albumin 3.8 (3.5-5.0) g/dL Current Medications Generic Name Dose Route Start Last Admin Trade Name Freq PRN Reason Stop Dose Admin Hydrocodone Bitart/Acetaminophen 0.5 each 12/27/21 22:00 12/28/21 06:29 Hydrocodone/Apap 10-325mg 1 Each Tab PO 0.5 each TID SAMANTHA Administration Albuterol/Ipratropium 3 ml 12/27/21 16:00 12/28/21 09:06 Ipratropium-Albuterol 3 Ml Neb INHALATION 3 ml RT-QID SAMANTHA Administration Albuterol/Ipratropium 3 ml 12/27/21 13:37 Ipratropium-Albuterol 3 Ml Neb INHALATION RT-Q4H PRN shortness of breath Amlodipine Besylate 5 mg 12/28/21 09:00 12/28/21 06:29 Amlodipine 5 Mg Tab PO 5 mg DAILY SAMANTHA Administration Budesonide/Formoterol Fumarate 2 puff 12/27/21 20:00 12/28/21 09:06 Symbicort 160-4.5 Mcg Inhaler INHALATION 2 puff RT-BID SAMANTHA Administration Diltiazem HCl 125 mg/ Sodium 125 mls @ 5 mls/hr 12/27/21 21:15 12/27/21 22:20 Chloride IV 5 mg/hr .Q24H SAMANTHA 5 mls/hr Administration 5 MG/HR Levofloxacin 750 mg 12/28/21 15:00 Levofloxacin 750 Mg Tab PO 12/31/21 15:01 DAILY@1500 [facility] Protocol Metoprolol Tartrate 25 mg 12/28/21 09:00 12/28/21 06:29 Metoprolol Tartrate 25 Mg Tab PO 25 mg DAILY SAMANTHA Administration Miscellaneous Information 1 each 12/27/21 13:37 Pneumonia Protocol Utilized 1 Each Misc PO ONCE PRN Per Protocol Intake and Output 12/27/21 12/28/21 12/28/21 22:59 06:59 14:59 Other: # Voids 2 Weight 84.822 kg 12/27/21 12:23 12/27/21 12:23
[2021-12-28] MEDS: LEVOFLOXACIN 750 MG TAB PO SCH (16:21)
[2021-12-28] MEDS: METOPROLOL TARTRATE 25 MG TAB PO SCH (20:34)
[2021-12-29] MEDS: HYDROcodone/APAP 10-325MG 1 EACH TAB PO PRN ×4 (04:18→23:03)
[2021-12-29] MEDS: METOPROLOL TARTRATE 25 MG TAB PO SCH ×2 (07:35→19:36)
[2021-12-29] MEDS: amLODIPine 5 MG TAB PO SCH (07:35)
[2021-12-29] MEDS: SYMBICORT 160-4.5 MCG INHALER INHALATION SCH ×2 (07:54→19:19)
[2021-12-29] MEDS: IPRATROPIUM-ALBUTEROL 3 ML NEB INHALATION SCH ×4 (07:54→19:19)
[2021-12-29] MEDS ORDERED: VANCOMYCIN IV PER PHARMACY 1 EACH MISC MISCELLANE PRN (08:46)
[2021-12-29] MEDS ORDERED: MAGNESIUM HYDROXIDE 2,400 MG/10 ML CUP PO PRN (08:51)
[2021-12-29 09:05] LABS: Basophils % (A) 0 %; Eosinophils # (A) 0.3 k/uL (0-0.7); Eosinophils % (A) 4 %; HGB 11.9 gm/dL (11.4-16.0); Hypochromasia Slight; Lymphocytes # (A) 0.9 k/uL (1.0-4.8); Lymphocytes % (A) 13 %; MCH 27.5 pg (25.0-35.0); MCHC 31.2 g/dL (31.0-37.0); Monocytes # (A) 0.4 k/uL (0-1.0); Monocytes % (A) 6 %; Neutrophils # (A) 5.2 k/uL (1.3-7.7); Neutrophils % (A) 75 %; Platelet Count 189 k/uL (150-450); RBC 4.32 m/uL (3.80-5.40); RDW 12.9 % (11.5-15.5); WBC 6.9 k/uL (3.8-10.6)
[2021-12-29 09:21] LABS: ALT 15 U/L (4-34); AST 26 U/L (14-36); African American GFR (CKD) >90 (>60 ml/min/1.73 sqM); Albumin 3.8 g/dL (3.5-5.0); Alkaline Phosphatase 112 U/L (38-126); Anion Gap 9 mmol/L; Blood Urea Nitrogen 12 mg/dL (7-17); Carbon Dioxide 24 mmol/L (22-30); Chloride 106 mmol/L (98-107); Glucose 106 mg/dL (74-99); Non-African American GFR(CKD) 79 (>60 ml/min/1.73 sqM); Potassium 4.5 mmol/L (3.5-5.1); Sodium 139 mmol/L (137-145); Total Bilirubin 0.6 mg/dL (0.2-1.3); Total Protein 6.7 g/dL (6.3-8.2)
--- NOTE | 2021-12-29 09:29 | P.PN ---
Subjective Progress Note Date: 12/29/21 Gracie Ybarra, is a 76-year-old female who presented to [facility] emergency room with a chief complaint of worsening shortness of breath and cough She was evaluated in the emergency room vital examination on presentation revealed a temperature of 98.1 pulse 75 respiration 22 blood pressure 136/54 pulse ox 96% on room air Laboratory data revealed a white blood count of 7.6 hemoglobin 12.5 platelet count 166 sodium 138 potassium 4.6 chloride 102 CO2 27 BUN 15 creatinine 0.83 coronavirus PCR was negative Testing in the emergency room revealed chest x-ray done in the emergency room revealed right apical mass with suspected mediastinal adenopathy. Finding correspond to computed tomography scan of 12/19/2021, she was admitted to medical floor pulmonary consultation was requested, patient was recently seen by Dr. Rocha in that regard to Patient was admitted to medical floor for further evaluation and treatment On 12/28/2021 patient was seen and examined on the telemetry floor, she is alert and oriented 3 in no apparent distress, she is complaining of low back pain otherwise she denies any complaints at this time, during the last night patient had an episode of atrial fibrillation with rapid ventricular response, she was transferred to telemetry floor, she was started on IV Cardizem drip and cardiology consultation was requested, at this time patient is in normal sinus rhythm, there is no fever or chills no headache or dizziness no chest pain no shortness of breath no cough no nausea or vomiting no abdominal pain no diarrhea no blood in the stools no burning with urination no frequency or urgency and no hematuria, bronchoscopy scheduled for this morning was postponed due to episode of atrial fibrillation. On 12/29/2021 patient was seen and examined on the telemetry floor she is alert and oriented 3 she is complaining of low back pain otherwise she denies any complaints at this time there is no fever or chills no headache or dizziness no chest pain no shortness of breath no cough no nausea or vomiting no abdominal pain no diarrhea no blood in the stools no burning with urination no frequency or urgency and no hematuria. This morning blood culture was reported as positive for gram-positive cocci, IV vancomycin pharmacy to dose was added to medication regimen, consultation for infectious disease was initiated, awaiting further culture results. Objective - Vital Signs Vital signs: Vital Signs Temp 97.9 F 12/29/21 07:36 Pulse 72 12/29/21 08:05 Resp 18 12/29/21 07:36 BP 124/67 12/29/21 07:36 Pulse Ox 97 12/29/21 07:36 FiO2 21 12/28/21 09:07 Intake & Output 12/28/21 12/29/21 12/29/21 18:59 06:59 18:59 Intake Total 785.25 Balance 785.25 Intake: Intake, IV Titration 65.25 Amount Diltiazem 125 mg In 65.25 Sodium Chloride 0.9% 100 ml @ 5 MG/HR 5 mls/hr IV .Q24H [facility] Rx#:[id number] Oral 720 Other: # Voids 2 2 - Exam In general patient is alert and oriented x 3 in no distress HEENT head normocephalic and atraumatic Neck is supple no JVD no goiter no lymphadenopathy no carotid bruit Chest examination is clear to auscultation no crackles no wheezing Cardiac exam reveals regular heart sounds S1 and S2 no gallops no murmurs Abdomen is soft nontender no organomegaly with normal bowel sounds Extremity exam reveals no edema no cyanosis or clubbing Neurological examination reveals no gross focal deficits - Labs CBC & Chem 7: 12/29/21 08:34 12/29/21 08:34 Labs: Abnormal Lab Results - Last 24 Hours (Table) 12/28/21 12/28/21 Range/Units 07:37 07:37 RBC 4.08 L (4.10-5.20) X 10*6/uL Hgb 11.0 L (12.0-15.0) g/dL Hct 34.9 L (37.2-46.3) % MCHC 31.5 L (32.0-37.0) g/dL Lymphocytes # 0.70 L (0.90-5.00) X 10*3/uL Albumin 3.5 L (3.8-4.9) g/dL Albumin/Globulin Ratio 1.25 L (1.60-3.17) g/dL Microbiology - Last 24 Hours (Table) 12/27/21 10:57 Blood Culture Gram Stain - Preliminary Blood 12/27/21 10:57 Blood Culture - Final Blood 12/27/21 12:23 Blood Culture - Preliminary Blood No Growth after 24 hours Assessment and Plan Plan: Right upper lobe lung mass, highly suspicious for lung cancer, awaiting bronchoscopy and biopsy Underlying history of hypertension Underlying history of COPD Underlying history of degenerative disc disease with chronic back pain Underlying history of paroxysmal atrial fibrillation, patient was seen in emergency room with an episode of atrial fibrillation on 12/20/2021, and was subsequently discharged home Underlying history of diverticulosis with episodes of diverticulitis in the past Underlying history of osteoarthritis History of morbid obesity with sleeve gastrectomy in 2018 At this time patient is admitted to medical floor Pulmonary consultation requested plan is for bronchoscopy on 12/28/2021 Home medications reviewed and 3 ordered Will follow closely
[2021-12-29] MEDS ORDERED: VANCOMYCIN 1,500 MG in SODIUM CHLORIDE 0.9% 500 ML 500 ML IVPB ONE (10:00)
--- NOTE | 2021-12-29 12:24 | P.PN ---
Subjective Progress Note Date: 12/29/21 Principal diagnosis: Lung mass, highly suspicious for bronchogenic carcinoma This is a 76-year-old female, familiar to my service, I saw this patient for the first time couple of weeks ago, patient was referred to me for symptoms of chronic cough, wheezing, and shortness of breath. Patient had a chest x-ray in my office, and it was consistent with right lung mass, possible lung cancer. Patient was advised to have a CT of the chest. This was done on 12/19/21, it showed large irregular mass in the right upper lobe it also showed additional paraspinal and right lower lobe nodules, multiple enlarged lymph nodes/mediastinal lymph nodes, clearly suspicious for primary lung carcinoma. 3 opacities noted in the right middle lobe and anterior right lower lobe, suspicious for underlying mass also. There is also evidence of irregular lobular mass in the right infrahilar region. Patient was notified about her abnormal CT of the chest, and I recommended a PET scan supposedly was scheduled to be done in 2 weeks from today, apparently the patient continued to have mostly symptoms of cough and shortness of breath, she was seen in the ER today, and considering the abnormalities, she was admitted. I saw the patient in the ER, and now I'm recommending bronchoscopy with possible transbronchial biopsies Transcarinal needle aspiration of mediastinal lymph nodes, and once a tissue diagnosis is made, patient will have outpatient follow-up with oncology. Obviously based on the findings , this is clearly a relatively far advanced bronchogenic carcinoma. Patient has no symptoms of cough, cough is productive with whitish phlegm, no hemoptysis, no fever, no chills, but she lost about 24 pounds in the last few months, she lost 4 pounds in the last 2 weeks The patient is seen today 12/28/2021 in follow-up on the selective care unit. She is currently sitting up in bed. Awake and alert in no acute distress. She is maintaining good O2 saturations in the 90s on room air. Afebrile. The plan was for bronchoscopy with biopsies today however last evening she developed atrial fibrillation with a rapid ventricular response and was initiated on a Cardizem drip currently at 5 mg per hour. She did convert it is currently in sinus rhythm. However she is not stable for procedure today.white count 8.0. Hemoglobin 11.0. Sodium 137. Potassium 4.0. BUN 11. Creatinine 0.8. She is continued on DuoNeb inhalations, Symbicort, and antibiotics in the form of Levaquin. chest x-ray continues to revealed right upper lobe mass. Right hilar prominence. Reevaluated today on 12/29/21, patient is feeling better, she is back in sinus rhythm, she is mostly on beta blockers, patient was supposed to undergo bronchoscopy yesterday, however the patient required Cardizem drip, and [place] not [place] to have bronchoscopy with the patient just recovering from atrial fibrillation with RVR. Patient was seen by cardiology, cleared for bronchoscopy which would be done tomorrow. Patient will be on the schedule around noontime. In the meantime the patient remains on bronchodilators, and on beta blockers Objective - Vital Signs Vital signs: Vital Signs Temp 97.9 F 12/29/21 07:36 Pulse 80 12/29/21 11:53 Resp 18 12/29/21 07:36 BP 124/67 12/29/21 07:36 Pulse Ox 97 12/29/21 07:36 FiO2 21 12/28/21 09:07 Intake & Output 12/28/21 12/29/21 12/29/21 18:59 06:59 18:59 Intake Total 785.25 240 Balance 785.25 240 Intake: Intake, IV Titration 65.25 Amount Diltiazem 125 mg In 65.25 Sodium Chloride 0.9% 100 ml @ 5 MG/HR 5 mls/hr IV .Q24H [facility] Rx#:[id number] Oral 720 240 Other: # Voids 2 2 - Exam Physical Exam: Revealed 76-year-old female in no distress. Head: Atraumatic, normocephalic. HEENT:[Neck is supple.] [No neck masses.] [No thyromegaly.] [No JVD.] Chest: [Diminished breath sound bilaterally some wheezing on forced expiratory maneuver noted. Cardiac Exam: [Normal S1 and S2, no S3 gallop, no murmur.] Abdomen: [Soft, nontender, no megaly, no rebound, no guarding, normal bowel sounds.] Extremities: [No clubbing, no edema, no cyanosis.] Neurological Exam: [No focal neurologic deficit.] Alert oriented 3. Psychiatric: Normal mood affect and normal mental status examination. Skin: No rashes. - Labs CBC & Chem 7: 12/29/21 08:34 12/29/21 08:34 Labs: Abnormal Lab Results - Last 24 Hours (Table) 12/29/21 12/29/21 Range/Units 08:34 08:34 Lymphocytes # 0.9 L (1.0-4.8) k/uL Glucose 106 H (74-99) mg/dL Microbiology - Last 24 Hours (Table) 12/27/21 10:57 Blood Culture Gram Stain - Preliminary Blood 12/27/21 10:57 Blood Culture - Final Blood 12/27/21 12:23 Blood Culture - Preliminary Blood No Growth after 24 hours Assessment and Plan Assessment: Impression: Advanced bronchogenic carcinoma isn't strongly suspected. Ex-smoker patient quit smoking about 18 years ago. Acute exacerbation of COPD Suspect postobstructive pneumonitis involving the right middle lobe Benign essential hypertension History of bariatric surgery/sleeve gastrectomy in 2018. Recommendation: Will recommend the bronchoscopy and biopsy to be done tomorrow. In the meantime continue bronchodilators and antibiotics. We will continue to follow. Discussed with the patient the bronchoscopy procedure, pros and cons of the procedure, and she is willing to proceed. Prognosis is guarded. We will continue to follow Time with Patient: Less than 30
[2021-12-29] MEDS: LEVOFLOXACIN 750 MG TAB PO SCH (15:45)
--- NOTE | 2021-12-29 15:58 | P.PN ---
Subjective Progress Note Date: 12/29/21 History of present illness: This is a 76-year-old female follows with Dr. ABEL Celis. She has history of hy pertension, macular degeneration, osteoarthritis. She has been recently established with Dr. Villegas regarding chronic cough wheezing or shortness of breath finding a right lung mass suspicious for lung cancer. She underwent a CAT scan of the chest which revealed a large irregular mass in the right upper lobe and additional paraspinal and right lower lobe nodules, multiple enlarged lymph nodes mediastinal lymph nodes, clearly suspicious for primary lung carcinoma. A PET scan was recommended by Dr. Rocha which was scheduled. Due to increasing shortness of breath, patient came into [facility] emergency center for evaluation. She was found to be in A. fib with RVR. She also had a previous ER visit a week ago at which time she presented with A. fib and RVR but converted to sinus rhythm prior to arrival to the emergency center. Patient was not discharged with any new medications. Nonetheless, Dr. Villegas was planning for bronchoscopy but due to atrial fibrillation this was going to be canceled and scheduled for Thursday or Thursday of this week. Patient also complains of shakiness. No lightheadedness. She states she has episodes of feeling to read her nauseated. No syncopal episodes. She was initially started on a Cardizem drip which has been discontinued. Patient also states that she is a 'bleeder" and is concerned about being on anticoagulation for atrial f ibrillation. Patient will need to hold anticoagulation until after bronchoscopy and lung biopsy is done. Recommended that the patient follow-up with Dr. ABEL Celis in the office and discuss options at that point. EKG atrial fibrillation with RVR with 131 bpm Chest x-ray stable. Right upper lobe mass 4.5 cm. Right hilar prominence suggested. Hyperinflation compatible with COPD. CBC was unremarkable. CMP unremarkable except for blood sugar 129. 12/29: Patient denies having any chest pain, shortness of breath or palpitations. ribber is a sinus rhythm. She is scheduled for broncho scopy tomorrow. The patient is in agreement, patient can start anticoagulation after her bronchoscopy. Patient at that point may prefer to follow-up with Dr. ABEL Celis in the office to discuss in more detail. Physical examination: Gen: This is a 76-year-old female. She is resting in bed and appears to be comfortable and in no acute distress. VS:afebrile, heart rate in the 70s and 80s, blood pressure 143/77, pulse ox 97% on room air. HEENT: Head is atraumatic, normocephalic. Pupils equal, round. Sclerae is anicteric. NECK: Supple. No JVD. No lymphadenopathy. No thyromegaly. LUNGS: Clear to auscultation. No wheezes or rhonchi. No intercostal retractions. HEART: Regular rate and rhythm. No murmur. ABDOMEN: Soft. Bowel sounds are present. No masses. No tenderness. EXTREMITIES: No pedal edema. No calf tenderness. NEUROLOGICAL: Patient is awake, alert and oriented x3. Cranial nerves 2 through 12 are grossly intact. Assessment: New onset atrial fibrillation, paroxysmal atrial fibrillation Suspicious primary lung carcinoma COPD Postobstructive pneumonitis Remote history of tobacco use. Plan: Continue Lopressor 25 mg twice daily Hold on anticoagulation due to need for bronchoscopy and lung biopsy.Patient is resistant to idea of anticoagulation. Recommend that she follow-up with Dr. ABEL Celis in the office and discuss in more detail. Further recommendations to follow based upon clinical course Thank you kindly for this consultation. Nurse practitioner note has been reviewed, I agree with documented findings and plan of care. Patient was seen and examined. Objective - Vital Signs Vital signs: Vital Signs Temp 97.5 F L 12/29/21 12:00 Pulse 64 12/29/21 12:00 Resp 18 12/29/21 12:00 BP 133/77 12/29/21 12:00 Pulse Ox 97 12/29/21 12:00 FiO2 21 12/28/21 09:07 Intake & Output 12/28/21 12/29/21 12/29/21 18:59 06:59 18:59 Intake Total 785.25 240 Balance 785.25 240 Intake: Intake, IV Titration 65.25 Amount Diltiazem 125 mg In 65.25 Sodium Chloride 0.9% 100 ml @ 5 MG/HR 5 mls/hr IV .Q24H [facility] Rx#:[id number] Oral 720 240 Other: # Voids 2 2 - Labs CBC & Chem 7: 12/29/21 08:34 12/29/21 08:34 Labs: Abnormal Lab Results - Last 24 Hours (Table) 12/29/21 12/29/21 Range/Units 08:34 08:34 Lymphocytes # 0.9 L (1.0-4.8) k/uL Glucose 106 H (74-99) mg/dL Microbiology - Last 24 Hours (Table) 12/27/21 10:57 Blood Culture Gram Stain - Preliminary Blood 12/27/21 10:57 Blood Culture - Final Blood 12/27/21 12:23 Blood Culture - Preliminary Blood No Growth after 24 hours
--- NOTE | 2021-12-29 22:59 | P.CONS ---
History of Present Illness - Reason for Consult Consult date: 12/29/21 Positive blood culture Requesting physician: Sheila Abreu - Chief Complaint Right lung mass x days - History of Present Illness Patient is a 76-year-old female presenting to the ER 2 days ago on 12/27/2021 for evaluation of cough and shortness of breath in this patient symptom has been going intermittently for the past few months patient apparently did have a chest x-ray and CT of the chest concerning for possible lung mass and pneumonia and patient has been treated with a course of antibiotic without any improvement patient was advised to go to the hospital and the patient will likely need bronchoscopy and further work-up for the patient was evaluated and subsequently admitted to the hospital on presentation to the hospital the patient was afebrile and no fever has been recorded subsequently patient did have a normal white count with no left shift kidney function has been normal liver enzymes are normal COVID testing was negative patient did have a chest x- ray right upper lobe mass and right hilar prominence patient did have a blood culture drawn which came back positive with gram-positive cocci vancomycin was added infectious disease was consulted for further management of antibiotic therapy Review of Systems Positive point has been mentioned in the HPI rest of the systems are negative Past Medical History Past Medical History: Eye Disorder, Hypertension, Osteoarthritis (OA) Additional Past Medical History / Comment(s): Hx. of DIVERTICULITIS, LT EYE MAC. DEGEN. HTN resolved after surgery., dysphagia History of Any Multi-Drug Resistant Organisms: None Reported Past Surgical History: Bariatric Surgery, Cholecystectomy, Orthopedic Surgery, Tubal Ligation Additional Past Surgical History / Comment(s): RIGHT SHOULDER SX, COLONOSCOPY, EGD sleeve gastrectomy 02-01-18 Past Anesthesia/Blood Transfusion Reactions: No Reported Reaction Additional Past Anesthesia/Blood Transfusion Reaction / Comm: Pt states that in June [address] Mckeon attempted to perform an EGD with dilation, the procedure had to be cancelled because she experienced a BP "way over 200 when they put me under" Past Psychological History: No Psychological Hx Reported Smoking Status: Never smoker Past Alcohol Use History: Daily Additional Past Alcohol Use History / Comment(s): Quit smoking in 1999. Past Drug Use History: None Reported - Past Family History Mother Family Medical History: CVA/TIA Father Family Medical History: Myocardial Infarction (MT) Medications and Allergies Home Medications Medication Instructions Recorded Confirmed Type amLODIPine [Norvasc] 5 mg PO DAILY 06/27/20 01/23/22 History Apixaban [Eliquis] 5 mg PO BID #60 tab 12/30/21 01/23/22 Rx Budesonide-Formot 160-4.5 Mcg 2 puff INHALATION RT-BID each 12/31/21 01/23/22 Rx [Symbicort 160-4.5 Mcg Inhaler] Metoprolol Tartrate [Lopressor] 50 mg PO BID #60 tab 01/20/22 01/23/22 Rx ALPRAZolam [Xanax] 0.25 mg PO QID PRN tab 01/22/22 01/23/22 Rx HYDROcodone/APAP 10-325MG [Ellinger 1 each PO Q4HR PRN tab 01/22/22 01/23/22 Rx 10-325] Lidocaine 5% Patch [Lidoderm 5% 1 patch TOPICAL DAILY patch 01/22/22 01/23/22 Rx Patch] Magnesium Hydroxide [Milk of 2,400 mg PO DAILY PRN ml 01/22/22 01/23/22 Rx Magnesia Concentrate] Pantoprazole [Protonix] 40 mg PO AC-BRKFST tab 01/22/22 01/23/22 Rx Sennosides-Docusate Sodium 2 each PO BID tab 01/22/22 01/23/22 Rx [Senokot-S] fentaNYL 12MCG/HR PATCH [Duragesic 1 patch TRANSDERM Q72H 3 Days #1 01/22/22 01/23/22 Rx 12MCG/HR] patch polyethylene glycoL 3350 [Miralax] 17 gm PO BID packet 01/22/22 01/23/22 Rx Amiodarone [Cordarone] See Taper PO DIRECTED 01/23/22 01/23/22 History Allergies Allergy/AdvReac Type Severity Reaction Status Date / Time Penicillins Allergy Severe Anaphylaxis Verified 01/23/22 07:39 morphine Allergy Rash/Hives Verified 01/23/22 07:39 Physical Exam Vitals: Vital Signs Temp Pulse Pulse Resp BP Pulse Ox 12/29/21 11:53 80 12/29/21 11:45 84 12/29/21 08:05 72 12/29/21 07:54 72 12/29/21 07:36 97.9 F 66 18 124/67 97 12/29/21 04:00 98.0 F 82 19 117/61 95 12/29/21 00:00 97 19 132/66 94 L 12/28/21 20:00 97.9 F 87 19 116/59 95 12/28/21 19:36 74 12/28/21 19:25 72 12/28/21 16:33 72 12/28/21 16:22 68 12/28/21 16:00 98.0 F 73 18 112/67 97 Intake and Output 12/28/21 12/29/21 12/29/21 22:59 06:59 14:59 Intake Total 540 240 Balance 540 240 Intake: Oral 540 240 Other: # Voids 1 2 GENERAL DESCRIPTION: Elderly female lying in bed, no distress. No tachypnea or accessory muscle of respiration use. HEENT: Shows Pallor , no scleral icterus. Oral mucous membrane is dry. No pharyngeal erythema or thrush NECK: Trachea central, no thyromegaly. LUNGS: Unlabored breathing. Decreased intensity of breath sounds. No wheeze or crackle. HEART: S1, S2, regular rate and rhythm. No loud murmur ABDOMEN: Soft, no tenderness , guarding or rigidity, no organomegaly EXTREMITIES: No edema of feet. SKIN: No rash, no masses palpable. NEUROLOGICAL: The patient is awake, alert, oriented x3, mood and affect normal. Results CBC & Chem 7: 12/29/21 08:34 12/29/21 08:34 Labs: Abnormal Lab Results - Last 24 Hours (Table) 12/29/21 12/29/21 Range/Units 08:34 08:34 Lymphocytes # 0.9 L (1.0-4.8) k/uL Glucose 106 H (74-99) mg/dL Microbiology - Last 24 Hours (Table) 12/27/21 10:57 Blood Culture Gram Stain - Preliminary Blood 12/27/21 10:57 Blood Culture - Final Blood 12/27/21 12:23 Blood Culture - Preliminary Blood No Growth after 24 hours Assessment and Plan (1) Positive blood culture Status: Acute Code(s): R78.81 - BACTEREMIA SNOMED Code(s): 354532961 Plan: 1patient with gram-positive bacteremia in this patient with a right upper lobe mass concerning for possible malignancy and a question of pneumonia however the patient do not have any fever or elevated white count with a question of possible skin contamination. 2blood cultures will be repeated document clearance of bacteremia we will also check a CRP and a procalcitonin level. 3vancomycin pharmacy to dose target trough of 15 while watching kidney function and vancomycin trough closely while waiting for the ID of this pathogen if coagulase-negative staph will be disregarded as skin contamination. We will follow on clinical condition and cultures to further adjust medication if needed Thank you for this consultation will follow this patient along with you Time with Patient: Greater than 30
[2021-12-30] MEDS ORDERED: VANCOMYCIN 1,500 MG in SODIUM CHLORIDE 0.9% 500 ML 500 ML IVPB SCH (03:00)
[2021-12-30] MEDS: HYDROcodone/APAP 10-325MG 1 EACH TAB PO PRN ×4 (03:58→22:14)
[2021-12-30] MEDS: SYMBICORT 160-4.5 MCG INHALER INHALATION SCH ×2 (07:11→20:00)
[2021-12-30] MEDS: IPRATROPIUM-ALBUTEROL 3 ML NEB INHALATION SCH ×4 (07:12→20:00)
[2021-12-30] MEDS: amLODIPine 5 MG TAB PO SCH (08:02)
[2021-12-30] MEDS: METOPROLOL TARTRATE 25 MG TAB PO SCH ×2 (08:02→21:08)
[2021-12-30] MEDS ORDERED: IV FLUID CONTINUATION 300 ML IV ONE (10:34)
[2021-12-30] MEDS ORDERED: PROPOFOL 10 MG/ML 20 ML VIAL IV ONE (10:35)
[2021-12-30] MEDS ORDERED: GLYCOPYRROLATE 0.2 MG/ML 2 ML VIAL ONE (10:35)
[2021-12-30] MEDS ORDERED: MIDAZOLAM 2 MG/2 ML VIAL ONE (10:35)
[2021-12-30] MEDS ORDERED: LIDOCAINE 2% INJ 20 MG/ML (2 ML VIAL) ONE (10:35)
[2021-12-30] MEDS ORDERED: KETAMINE 10 MG/ML 20 ML VIAL ONE (10:35)
[2021-12-30] MEDS ORDERED: SODIUM CHLORIDE 0.9% 500 ML 500 ML IV ONE (11:33)
--- NOTE | 2021-12-30 12:23 | XR ---
EXAMINATION TYPE: XR chest 1V portable DATE OF EXAM: 12/30/2021 Comparison: 12/28/2021 Clinical History: 76-year-old female POST BRONCH WITH BIOPSY Findings: Heart is upper limits of normal in size. Unchanged right hilar prominence. Unchanged focal right uppe r lobe opacity. No appreciable pneumothorax. Interstitial prominence is unchanged. Partially visualiz ed reverse right total shoulder arthroplasty. Impression: Known right upper lobe mass. Unchanged right hilar prominence. No appreciable pneumothorax.
--- NOTE | 2021-12-30 13:38 | P.PN ---
Subjective Progress Note Date: 12/30/21 Gracie Ybarra, is a 76-year-old female who presented to [facility] emergency room with a chief complaint of worsening shortness of breath and cough She was evaluated in the emergency room vital examination on presentation revealed a temperature of 98.1 pulse 75 respiration 22 blood pressure 136/54 pulse ox 96% on room air Laboratory data revealed a white blood count of 7.6 hemoglobin 12.5 platelet count 166 sodium 138 potassium 4.6 chloride 102 CO2 27 BUN 15 creatinine 0.83 coronavirus PCR was negative Testing in the emergency room revealed chest x-ray done in the emergency room revealed right apical mass with suspected mediastinal adenopathy. Finding correspond to computed tomography scan of 12/19/2021, she was admitted to medical floor pulmonary consultation was requested, patient was recently seen by Dr. Rocha in that regard to Patient was admitted to medical floor for further evaluation and treatment On 12/28/2021 patient was seen and examined on the telemetry floor, she is alert and oriented 3 in no apparent distress, she is complaining of low back pain otherwise she denies any complaints at this time, during the last night patient had an episode of atrial fibrillation with rapid ventricular response, she was transferred to telemetry floor, she was started on IV Cardizem drip and cardiology consultation was requested, at this time patient is in normal sinus rhythm, there is no fever or chills no headache or dizziness no chest pain no shortness of breath no cough no nausea or vomiting no abdominal pain no diarrhea no blood in the stools no burning with urination no frequency or urgency and no hematuria, bronchoscopy scheduled for this morning was postponed due to episode of atrial fibrillation. On 12/29/2021 patient was seen and examined on the telemetry floor she is alert and oriented 3 she is complaining of low back pain otherwise she denies any complaints at this time there is no fever or chills no headache or dizziness no chest pain no shortness of breath no cough no nausea or vomiting no abdominal pain no diarrhea no blood in the stools no burning with urination no frequency or urgency and no hematuria. This morning blood culture was reported as positive for gram-positive cocci, IV vancomycin pharmacy to dose was added to medication regimen, consultation for infectious disease was initiated, awaiting further culture results. On 12/30/2021 patient was seen and examined on the telemetry floor, she is alert and oriented 3 in no apparent distress she is complaining of lower back pain otherwise she denies any complaints there is no fever or chills no headache or dizziness no chest pain no shortness of breath no cough no nausea or vomiting no abdominal pain no diarrhea no blood in the stools no burning with urination no frequency or urgency and no hematuria, plan for pulmonary is to proceed with bronchoscopy. Objective - Vital Signs Vital signs: Vital Signs Temp 98.0 F 12/30/21 08:00 Pulse 90 12/30/21 08:17 Resp 18 12/30/21 08:00 BP 107/61 12/30/21 08:00 Pulse Ox 97 12/30/21 08:00 FiO2 21 12/28/21 09:07 Intake & Output 12/29/21 12/30/21 12/30/21 18:59 06:59 18:59 Intake Total 240 Balance 240 Intake: Oral 240 Other: # Voids 2 - Exam In general patient is alert and oriented x 3 in no distress HEENT head normocephalic and atraumatic Neck is supple no JVD no goiter no lymphadenopathy no carotid bruit Chest examination is clear to auscultation no crackles no wheezing Cardiac exam reveals regular heart sounds S1 and S2 no gallops no murmurs Abdomen is soft nontender no organomegaly with normal bowel sounds Extremity exam reveals no edema no cyanosis or clubbing Neurological examination reveals no gross focal deficits - Labs CBC & Chem 7: 12/29/21 08:34 12/29/21 08:34 Labs: Abnormal Lab Results - Last 24 Hours (Table) 12/29/21 12/29/21 12/30/21 Range/Units 08:34 08:34 06:15 Lymphocytes # 0.9 L (1.0-4.8) k/uL Glucose 106 H (74-99) mg/dL C-Reactive Protein 4.7 H (<1.0) mg/dL Microbiology - Last 24 Hours (Table) 12/27/21 10:57 Blood Culture Gram Stain - Preliminary Blood Blood Culture - Preliminary Streptococcus species 12/27/21 12:23 Blood Culture - Preliminary Blood No Growth after 48 hours 12/27/21 10:57 Blood Culture - Final Blood Assessment and Plan Plan: Right upper lobe lung mass, highly suspicious for lung cancer, awaiting broncho scopy and biopsy Underlying history of hypertension Underlying history of COPD Underlying history of degenerative disc disease with chronic back pain Underlying history of paroxysmal atrial fibrillation, patient was seen in emergency room with an episode of atrial fibrillation on 12/20/2021, and was subsequently discharged home Underlying history of diverticulosis with episodes of diverticulitis in the past Underlying history of osteoarthritis History of morbid obesity with sleeve gastrectomy in 2018 At this time patient is admitted to medical floor Pulmonary consultation requested plan is for bronchoscopy on 12/28/2021 Home medications reviewed and 3 ordered Will follow closely
--- NOTE | 2021-12-30 14:16 | P.PN ---
Subjective Progress Note Date: 12/30/21 HISTORY OF PRESENT ILLNESS: This is a 76-year-old female follows with Dr. ABEL Celis. She has history of hypertension, macular degeneration, osteoarthritis. She has been recently es tablished with Dr. Villegas regarding chronic cough wheezing or shortness of breath finding a right lung mass suspicious for lung cancer. She underwent a CAT scan of the chest which revealed a large irregular mass in the right upper lobe and additional paraspinal and right lower lobe nodules, multiple enlarged lymph nodes mediastinal lymph nodes, clearly suspicious for primary lung carcinoma. A PET scan was recommended by Dr. Rocha which was scheduled. Due to increasing shortness of breath, patient came into [facility] emergency center for evaluation. She was found to be in A. fib with RVR. She also had a previous ER visit a week ago at which time she presented with A. fib and RVR but converted to sinus rhythm prior to arrival to the emergency center. Patient was not discharged with any new medications. Nonetheless, Dr. Villegas was planning for bronchoscopy but due to atrial fibrillation this was going to be canceled and scheduled for Thursday or Thursday of this week. Patient also complains of shakiness. No lightheadedness. She states she has episodes of feeling to read her nauseated. No syncopal episodes. She was initially started on a Cardizem drip which has been discontinued. Patient also states that she is a 'bleeder" and is concerned about being on anticoagulation for atrial fibrillation. Patient will need to hold anticoagulation until after broncho scopy and lung biopsy is done. Recommended that the patient follow-up with Dr. ABEL Celis in the office and discuss options at that point. EKG atrial fibrillation with RVR with 131 bpm Chest x-ray stable. Right upper lobe mass 4.5 cm. Right hilar prominence suggested. Hyperinflation compatible with COPD. CBC was unremarkable. CMP unremarkable except for blood sugar 129. 12/29: Patient denies having any chest pain, shortness of breath or palpitations. color television console monitor is a sinus rhythm. She is scheduled for bronchoscopy tomorrow. The patient is in agreement, patient can start anticoagulation after her bronchoscopy. Patient at that point may prefer to follow-up with Dr. ABEL Celis in the office to discuss in more detail. 12/30/2021 Patient examined at the bedside. She is status post lung biopsy. Patient denies chest pain or pressure. She denies shortness of breath. Telemetry reveals sinus mechanism. Discussion was held with patient and Dr. Celis and patient is agreeable to begin anticoagulation. PHYSICAL EXAM: VITAL SIGNS: Reviewed. GENERAL: Well-developed in no acute distress. NECK: Supple. No JVD or thyromegaly LUNGS: Respirations even and unlabored. Lungs essentially clear to auscultation bilaterally. HEART: Regular rate and rhythm. S1 and S2 heard. EXTREMITIES: Normal range of motion. No clubbing or cyanosis. Peripheral pulses intact. No lower extremity edema ASSESSMENT: New onset atrial fibrillation, paroxysmal atrial fibrillation Suspicious primary lung carcinoma COPD Postobstructive pneumonitis Remote history of tobacco use PLAN: Continue current cardiac medications Patient agreeable to anticoagulation. Begin Eliquis 5mg BID Case management consulted for insurance coverage Patient may be discharged home today from a cardiac standpoint Nurse practitioner note has been reviewed by physician. Signing provider agrees with the documented findings, assessment, and plan of care. Objective - Vital Signs Vital signs: Vital Signs Temp 97.8 F 12/30/21 12:00 Pulse 60 12/30/21 12:21 Resp 18 12/30/21 12:21 BP 118/56 12/30/21 12:21 Pulse Ox 97 12/30/21 12:21 FiO2 21 12/28/21 09:07 Intake & Output 12/29/21 12/30/21 12/30/21 18:59 06:59 18:59 Intake Total 240 990 Balance 240 990 Intake: IV 400 Intake, IV Titration 50 Amount cefTRIAXone 2 gm In 50 Sodium Chloride 0.9% 50 ml @ 100 mls/hr IVPB Q24HR [facility] Rx#:[id number] Oral 240 540 Other: # Voids 2 1 - Labs CBC & Chem 7: 12/29/21 08:34 12/29/21 08:34 Labs: Abnormal Lab Results - Last 24 Hours (Table) 12/30/21 Range/Units 06:15 C-Reactive Protein 4.7 H (<1.0) mg/dL Microbiology - Last 24 Hours (Table) 12/27/21 10:57 Blood Culture Gram Stain - Preliminary Blood Blood Culture - Preliminary Streptococcus species 12/27/21 12:23 Blood Culture - Preliminary Blood No Growth after 48 hours
[2021-12-30] MEDS: LEVOFLOXACIN 750 MG TAB PO SCH (15:59)
--- NOTE | 2021-12-30 16:10 | P.PN ---
Subjective Progress Note Date: 12/30/21 Principal diagnosis: Lung mass, A. antonio This is a 76-year-old female, familiar to my service, I saw this patient for the first time couple of weeks ago, patient was referred to me for symptoms of chronic cough, wheezing, and shortness of breath. Patient had a chest x-ray in my office, and it was consistent with right lung mass, possible lung cancer. Patient was advised to have a CT of the chest. This was done on 12/19/21, it showed large irregular mass in the right upper lobe it also showed additional paraspinal and right lower lobe nodules, multiple enlarged lymph nodes/ mediastinal lymph nodes, clearly suspicious for primary lung carcinoma. 3 opacities noted in the right middle lobe and anterior right lower lobe, suspicious for underlying mass also. There is also evidence of irregular lobular mass in the right infrahilar region. Patient was notified about her ab normal CT of the chest, and I recommended a PET scan supposedly was scheduled to be done in 2 weeks from today, apparently the patient continued to have mostly symptoms of cough and shortness of breath, she was seen in the ER today, and considering the abnormalities, she was admitted. I saw the patient in the ER, and now I'm recommending bronchoscopy with possible transbronchial biopsies Transcarinal needle aspiration of mediastinal lymph nodes, and once a tissue diagnosis is made, patient will have outpatient follow-up with oncology. Obviously based on the findings , this is clearly a relatively far advanced bronchogenic carcinoma. Patient has no symptoms of cough, cough is productive with whitish phlegm, no hemoptysis, no fever, no chills, but she lost about 24 pounds in the last few months, she lost 4 pounds in the last 2 weeks The patient is seen today 12/28/2021 in follow-up on the selective care unit. She is currently sitting up in bed. Awake and alert in no acute distress. She is maintaining good O2 saturations in the 90s on room air. Afebrile. The plan was for bronchoscopy with biopsies today however last evening she developed atrial fibrillation with a rapid ventricular response and was initiated on a Cardizem drip currently at 5 mg per hour. She did convert it is currently in sinus rhythm. However she is not stable for procedure today.white count 8.0. Hemoglobin 11.0. Sodium 137. Potassium 4.0. BUN 11. Creatinine 0.8. She is continued on DuoNeb inhalations, Symbicort, and antibiotics in the form of Levaquin. chest x-ray continues to revealed right upper lobe mass. Right hilar prominence. The patient is seen today 12/30/2021 in follow-up on the selective care unit. She is currently resting comfortably in bed. Awake and alert in no acute di stress. Currently maintaining good O2 saturations in the 90s on room air. Afebrile. Hemodynamically stable. She did undergo bronchoscopy with biopsies today. Tolerated the procedure well. Cultures and pathology pending. Blood culture positive for Streptococcus species. Follow-up blood cultures reveal no growth. Pro-calcitonin 0.04. She remains on DuoNeb inhalations, Symbicort. Antibiotics in the form of ceftriaxone and Levaquin. Anticoagulated with Eliquis. Objective - Vital Signs Vital signs: Vital Signs Temp 97.8 F 12/30/21 16:00 Pulse 77 12/30/21 16:00 Resp 18 12/30/21 16:00 BP 137/77 12/30/21 16:00 Pulse Ox 97 12/30/21 16:00 FiO2 21 12/28/21 09:07 Intake & Output 12/29/21 12/30/21 12/30/21 18:59 06:59 18:59 Intake Total 240 990 Balance 240 990 Intake: IV 400 Intake, IV Titration 50 Amount cefTRIAXone 2 gm In 50 Sodium Chloride 0.9% 50 ml @ 100 mls/hr IVPB Q24HR [facility] Rx#:[id number] Oral 240 540 Other: # Voids 2 1 - Exam GENERAL EXAM: Alert, very pleasant 76-year-old female, on room air, comfortable in no apparent distress. HEAD: Normocephalic. EYES: Normal reaction of pupils, equal size. NOSE: Clear with pink turbinates. THROAT: No erythema or exudates. NECK: No masses, no JVD. CHEST: No chest wall deformity. LUNGS: Equal air entry with no crackles, wheeze, rhonchi or dullness. CVS: S1 and S2 normal with no audible murmur, regular rhythm. ABDOMEN: No hepatosplenomegaly, normal bowel sounds, no guarding or rigidity. SPINE: No scoliosis or deformity SKIN: No rashes CENTRAL NERVOUS SYSTEM: No focal deficits, tone is normal in all 4 extremities. EXTREMITIES: There is no peripheral edema. No clubbing, no cyanosis. Peripheral pulses are intact. - Labs CBC & Chem 7: 12/29/21 08:34 12/29/21 08:34 Labs: Abnormal Lab Results - Last 24 Hours (Table) 12/30/21 Range/Units 06:15 C-Reactive Protein 4.7 H (<1.0) mg/dL Microbiology - Last 24 Hours (Table) 12/27/21 12:23 Blood Culture - Preliminary Blood No Growth after 72 hours 12/27/21 10:57 Blood Culture Gram Stain - Preliminary Blood Blood Culture - Preliminary Streptococcus species Assessment and Plan Assessment: Advanced bronchogenic carcinoma with a right upper lobe mass measuring 4.5 cm with right hilar prominence. Status post bronchoscopy with biopsies 12/30/2021. Pathology and cultures pending Ex-smoker patient quit smoking about 18 years ago. Acute exacerbation of COPD Suspect postobstructive pneumonitis involving the right middle lobe Atrial fibrillation with rapid ventricular response, anticoagulated with Eliquis Benign essential hypertension History of bariatric surgery/sleeve gastrectomy in 2018 Plan: The patient was seen and evaluated Labs and medications reviewed Bronchoscopies with biopsies performed today Pathology and cultures pending Procalcitonin 0.04 Discontinue ceftriaxone and Levaquin Add doxycycline 1 week Probable discharge in the a.m. Will continue to follow I have personally seen and examined the patient, performed the documentation and the assessment and plan as written. Number of minutes spent on the visit: 10.
[2021-12-30] MEDS: guaiFENesin-Coden 100-10MG/5ML 10 ML CUP PO PRN (18:12)
[2021-12-30] MEDS ORDERED: ALPRAZolam 0.5 MG TAB PO SCH ×2 (18:15→21:00)
[2021-12-30 18:48] LABS: Appearance,BF Blood Tinged
--- NOTE | 2021-12-30 19:49 | PCN ---
PROCEDURE NOTE PROCEDURES: Bronchoscopy; airway examination; therapeutic lavage/bronchoalveolar lavage; right lung endobronchial biopsies, right mainstem; multiple subcarinal Guy needle biopsies, station 7 nodes; and brushes of right lower lobe. PREOPERATIVE DIAGNOSIS: Lung mass, rule out lung cancer. POSTOPERATIVE DIAGNOSIS: Lung mass, rule out lung cancer. ANESTHESIA PROVIDED: General anesthesia. DESCRIPTION OF PROCEDURE: There was informed consent and universal time-out. We did have Pathology standing by. After the patient was adequately sedated and being fully monitored, the bronchoscope was inserted through the right nostril. It passed through the right nasopharynx into the oropharynx. The hypopharyngeal structures were evaluated. The anterior commissure; true cords; false cords; arytenoids; piriform sinuses both right and left; vallecula; and epiglottis all appeared normal. The glottic opening was topicalized, and the bronchoscope was pushed through the glottic opening into the trachea. Trachea appeared relatively normal. I did a thorough and quick evaluation of the left lung. The left upper lobe and its 2 segments, the lingula and its 2 segments, and left lower lobe and its 4 segments all appeared normal. On the right side, there was significant bulging in the subcarinal area. This was a clear abnormality. Also, entering the right upper lobe was difficult as there was some extrinsic compression of the bronchus leading into the right upper lobe. Likewise, the bronchus intermedius was compromised extrinsically, as were the right middle lobe and right lower lobe. Multiple subcarinal Guy needle biopsies were performed favoring the right side. Next, there was an endobronchial lesion noted in the right mainstem which was biopsied endobronchially. Multiple brushes and washes were done in the right mainstem, right middle lobe and lower lobe areas. The samples were evaluated by Pathology. On the last pass that we made, the pathologist was convinced that we had given enough tissue for a diagnosis. Cell block will be evaluated as well. Everything was sent to the pathology laboratory for evaluation. The patient tolerated the procedure well. There was minimal bleeding. The patient was stable throughout the procedure. There was no immediate complication. The patient will be recovered and transported back to her room. MMODL / IJN: [id number] / MTDD
[2021-12-30] MEDS: DOXYCYCLINE 100 MG CAP PO SCH (21:09)
[2021-12-30] MEDS: APIXABAN 5 MG TAB PO SCH (21:09)
[2021-12-31] MEDS: HYDROcodone/APAP 10-325MG 1 EACH TAB PO PRN ×2 (05:04→10:01)
[2021-12-31] MEDS: guaiFENesin-Coden 100-10MG/5ML 10 ML CUP PO PRN ×2 (05:04→11:21)
[2021-12-31] MEDS: IPRATROPIUM-ALBUTEROL 3 ML NEB INHALATION SCH ×3 (08:20→15:33)
[2021-12-31] MEDS: SYMBICORT 160-4.5 MCG INHALER INHALATION SCH (08:20)
[2021-12-31] MEDS: METOPROLOL TARTRATE 25 MG TAB PO SCH (09:56)
[2021-12-31] MEDS: APIXABAN 5 MG TAB PO SCH (09:56)
[2021-12-31] MEDS: amLODIPine 5 MG TAB PO SCH (09:56)
[2021-12-31] MEDS: DOXYCYCLINE 100 MG CAP PO SCH (09:56)
--- NOTE | 2021-12-31 10:49 | P.PN ---
Subjective Progress Note Date: 12/31/21 HISTORY OF PRESENT ILLNESS: This is a 76-year-old female follows with Dr. ABEL Celis. She has history of hypertension, macular degeneration, osteoarthritis. She has been recently es tablished with Dr. Villegas regarding chronic cough wheezing or shortness of breath finding a right lung mass suspicious for lung cancer. She underwent a CAT scan of the chest which revealed a large irregular mass in the right upper lobe and additional paraspinal and right lower lobe nodules, multiple enlarged lymph nodes mediastinal lymph nodes, clearly suspicious for primary lung carcinoma. A PET scan was recommended by Dr. Rocha which was scheduled. Due to increasing shortness of breath, patient came into [facility] emergency center for evaluation. She was found to be in A. fib with RVR. She also had a previous ER visit a week ago at which time she presented with A. fib and RVR but converted to sinus rhythm prior to arrival to the emergency center. Patient was not discharged with any new medications. Nonetheless, Dr. Villegas was planning for bronchoscopy but due to atrial fibrillation this was going to be canceled and scheduled for Thursday or Thursday of this week. Patient also complains of shakiness. No lightheadedness. She states she has episodes of feeling to read her nauseated. No syncopal episodes. She was initially started on a Cardizem drip which has been discontinued. Patient also states that she is a 'bleeder" and is concerned about being on anticoagulation for atrial fibrillation. Patient will need to hold anticoagulation until after broncho scopy and lung biopsy is done. Recommended that the patient follow-up with Dr. ABEL Celis in the office and discuss options at that point. EKG atrial fibrillation with RVR with 131 bpm Chest x-ray stable. Right upper lobe mass 4.5 cm. Right hilar prominence suggested. Hyperinflation compatible with COPD. CBC was unremarkable. CMP unremarkable except for blood sugar 129. 12/29: Patient denies having any chest pain, shortness of breath or palpitations. cafeteria monitor is a sinus rhythm. She is scheduled for bronchoscopy tomorrow. The patient is in agreement, patient can start anticoagulation after her bronchoscopy. Patient at that point may prefer to follow-up with Dr. ABEL Celis in the office to discuss in more detail. 12/30/2021 Patient examined at the bedside. She is status post lung biopsy. Patient denies chest pain or pressure. She denies shortness of breath. Telemetry reveals sinus mechanism. Discussion was held with patient and Dr. Celis and patient is agreeable to begin anticoagulation. 12/31/2021 Patient examined this morning at the bedside. Patient denies chest pain or pressure. She denies shortness of breath. Telemetry reveals sinus mechanism. Vital signs are stable. PHYSICAL EXAM: VITAL SIGNS: Reviewed. GENERAL: Well-developed in no acute distress. NECK: Supple. No JVD or thyromegaly LUNGS: Respirations even and unlabored. Lungs essentially clear to auscultation bilaterally. HEART: Regular rate and rhythm. S1 and S2 heard. EXTREMITIES: Normal range of motion. No clubbing or cyanosis. Peripheral pul ses intact. No lower extremity edema ASSESSMENT: New onset atrial fibrillation, paroxysmal atrial fibrillation Suspicious primary lung carcinoma COPD Postobstructive pneumonitis Remote history of tobacco use PLAN: Continue current cardiac medications Patient may be discharged home today from a cardiac standpoint We will sign off. Please reconsult if needed. Nurse practitioner note has been reviewed by physician. Signing provider agrees with the documented findings, assessment, and plan of care. Objective - Vital Signs Vital signs: Vital Signs Temp 97.6 F 12/31/21 04:46 Pulse 72 12/31/21 08:30 Resp 18 12/31/21 08:30 BP 134/74 12/31/21 04:46 Pulse Ox 95 12/31/21 08:20 FiO2 21 12/28/21 09:07 Intake & Output 12/30/21 12/31/21 12/31/21 18:59 06:59 18:59 Intake Total 990 240 118 Balance 990 240 118 Intake: IV 400 Intake, IV Titration 50 Amount cefTRIAXone 2 gm In 50 Sodium Chloride 0.9% 50 ml @ 100 mls/hr IVPB Q24HR [facility] Rx#:[id number] Oral 540 240 118 Other: # Voids 1 1 # Bowel Movements 1 - Labs CBC & Chem 7: 12/29/21 08:34 12/29/21 08:34 Labs: Microbiology - Last 24 Hours (Table) 12/30/21 06:15 Blood Culture - Preliminary Blood No Growth after 24 hours 12/27/21 12:23 Blood Culture - Preliminary Blood No Growth after 72 hours
[2021-12-31 13:51] VITALS: BMI 32.1
--- NOTE | 2021-12-31 14:50 | P.PN ---
Subjective Progress Note Date: 12/31/21 Principal diagnosis: Lung mass, A. antonio This is a 76-year-old female, familiar to my service, I saw this patient for the first time couple of weeks ago, patient was referred to me for symptoms of chronic cough, wheezing, and shortness of breath. Patient had a chest x-ray in my office, and it was consistent with right lung mass, possible lung cancer. Patient was advised to have a CT of the chest. This was done on 12/19/21, it showed large irregular mass in the right upper lobe it also showed additional paraspinal and right lower lobe nodules, multiple enlarged lymph nodes/ mediastinal lymph nodes, clearly suspicious for primary lung carcinoma. 3 opacities noted in the right middle lobe and anterior right lower lobe, suspicious for underlying mass also. There is also evidence of irregular lobular mass in the right infrahilar region. Patient was notified about her ab normal CT of the chest, and I recommended a PET scan supposedly was scheduled to be done in 2 weeks from today, apparently the patient continued to have mostly symptoms of cough and shortness of breath, she was seen in the ER today, and considering the abnormalities, she was admitted. I saw the patient in the ER, and now I'm recommending bronchoscopy with possible transbronchial biopsies Transcarinal needle aspiration of mediastinal lymph nodes, and once a tissue diagnosis is made, patient will have outpatient follow-up with oncology. Obviously based on the findings , this is clearly a relatively far advanced bronchogenic carcinoma. Patient has no symptoms of cough, cough is productive with whitish phlegm, no hemoptysis, no fever, no chills, but she lost about 24 pounds in the last few months, she lost 4 pounds in the last 2 weeks The patient is seen today 12/28/2021 in follow-up on the selective care unit. She is currently sitting up in bed. Awake and alert in no acute distress. She is maintaining good O2 saturations in the 90s on room air. Afebrile. The plan was for bronchoscopy with biopsies today however last evening she developed atrial fibrillation with a rapid ventricular response and was initiated on a Cardizem drip currently at 5 mg per hour. She did convert it is currently in sinus rhythm. However she is not stable for procedure today.white count 8.0. Hemoglobin 11.0. Sodium 137. Potassium 4.0. BUN 11. Creatinine 0.8. She is continued on DuoNeb inhalations, Symbicort, and antibiotics in the form of Levaquin. chest x-ray continues to revealed right upper lobe mass. Right hilar prominence. The patient is seen today 12/30/2021 in follow-up on the selective care unit. She is currently resting comfortably in bed. Awake and alert in no acute di stress. Currently maintaining good O2 saturations in the 90s on room air. Afebrile. Hemodynamically stable. She did undergo bronchoscopy with biopsies today. Tolerated the procedure well. Cultures and pathology pending. Blood culture positive for Streptococcus species. Follow-up blood cultures reveal no growth. Pro-calcitonin 0.04. She remains on DuoNeb inhalations, Symbicort. Antibiotics in the form of ceftriaxone and Levaquin. Anticoagulated with Eliquis. The patient is seen today 12/31/2021 in follow-up on the selective care unit. She is awake and alert in no acute distress. Sitting up at the bedside. Denies any worsening shortness of breath, cough or congestion. No fever chills. She did undergo bronchoscopy with biopsies yesterday. Cultures and pathology are pending.She is continued on Symbicort, DuoNeb inhalations, antibiotics in the form of doxycycline. Anticoagulated with Eliquis. Objective - Vital Signs Vital signs: Vital Signs Temp 97.8 F 12/31/21 11:21 Pulse 88 12/31/21 11:22 Resp 18 12/31/21 11:22 BP 130/80 12/31/21 11:21 Pulse Ox 96 12/31/21 11:21 FiO2 21 12/28/21 09:07 Intake & Output 12/30/21 12/31/21 12/31/21 18:59 06:59 18:59 Intake Total 990 240 236 Balance 990 240 236 Weight 84.822 kg Intake: IV 400 Intake, IV Titration 50 Amount cefTRIAXone 2 gm In 50 Sodium Chloride 0.9% 50 ml @ 100 mls/hr IVPB Q24HR [facility] Rx#:[id number] Oral 540 240 236 Other: Voiding Method Toilet # Voids 1 1 1 # Bowel Movements 1 - Exam GENERAL EXAM: Alert, very pleasant 76-year-old female, on room air, comfortable in no apparent distress. HEAD: Normocephalic. EYES: Normal reaction of pupils, equal size. NOSE: Clear with pink turbinates. THROAT: No erythema or exudates. NECK: No masses, no JVD. CHEST: No chest wall deformity. LUNGS: Equal air entry with no crackles, wheeze, rhonchi or dullness. CVS: S1 and S2 normal with no audible murmur, regular rhythm. ABDOMEN: No hepatosplenomegaly, normal bowel sounds, no guarding or rigidity. SPINE: No scoliosis or deformity SKIN: No rashes CENTRAL NERVOUS SYSTEM: No focal deficits, tone is normal in all 4 extremities. EXTREMITIES: There is no peripheral edema. No clubbing, no cyanosis. Pe ripheral pulses are intact. - Labs CBC & Chem 7: 12/29/21 08:34 12/29/21 08:34 Labs: Microbiology - Last 24 Hours (Table) 12/27/21 12:23 Blood Culture - Preliminary Blood No Growth after 96 hours 12/27/21 10:57 Blood Culture Gram Stain - Final Blood Blood Culture - Final Alpha Hemolytic Streptococcus 12/30/21 06:15 Blood Culture - Preliminary Blood No Growth after 24 hours Assessment and Plan Assessment: Advanced bronchogenic carcinoma with a right upper lobe mass measuring 4.5 cm with right hilar prominence. Status post bronchoscopy with biopsies 12/30/2021. Pathology and cultures pending Ex-smoker patient quit smoking about 18 years ago. Acute exacerbation of COPD Suspect postobstructive pneumonitis involving the right middle lobe Atrial fibrillation with rapid ventricular response, anticoagulated with Eliquis Benign essential hypertension History of bariatric surgery/sleeve gastrectomy in 2018 Plan: The patient was seen and evaluated Stable and on room air Pathology and cultures pending Continue doxycycline 1 week Cleared for discharge from the pulmonary standpoint Follow up with Dr. Rocha in the office in 1 week I have personally seen and examined the patient, performed the documentation and the assessment and plan as written. Number of minutes spent on the visit: 10.
[2021-12-31 15:53] VITALS: BP 129/70; PULSE 74; RESP 16; TEMP 98.2
--- NOTE | 2021-12-31 22:26 | P.CONS ---
History of Present Illness - Reason for Consult Consult date: 12/31/21 lung mass Requesting physician: Aretha Martinez - Chief Complaint SOB - History of Present Illness Mrs. Ybarra is a very pleasant female we have been asked to see as she had kaylin ging and had bronch and biopsy for RUL mass, LAD, most suspicious for primary lung cancer. She was referred to Pulmonary earlier this month for cough, wheezing and SOB, persistent despite abx treatment and ENT evaluation. CT chest 12/19/21 revealed a RUL mass, RLL nodules, LAD. PET was scheduled for 01/14. Pt reports persistent tickle in the throat, voice changes in the last week, she has had a fever, night sweats-changing clothes 3-4 times a night. She 1st noted symptoms of dry cough back in July, it "hurt to take a deep breath". Mild N, occasional V, no appetite 20+lb wt loss in 3 mo. She is on eliquis for afib. No personal or FH of cancer. She was having resp symptoms and ended up in ER. Dr. Akers assessed pt, and once she was stable he proceeded with biopsy, 12/30, pending path. Pt has no c/o post biopsy, her SOB is stable, dry cough is nagging. She is medicated for HTN, on eliquis for a fib. Review of Systems 10 point ROS is neg except as stated in HPI Past Medical History Past Medical History: Eye Disorder, Hypertension, Osteoarthritis (OA) Additional Past Medical History / Comment(s): Hx. of DIVERTICULITIS, LT EYE MAC. DEGEN. HTN resolved after surgery., dysphagia History of Any Multi-Drug Resistant Organisms: None Reported Past Surgical History: Bariatric Surgery, Cholecystectomy, Orthopedic Surgery, Tubal Ligation Additional Past Surgical History / Comment(s): RIGHT SHOULDER SX, COLONOSCOPY, EGD sleeve gastrectomy 02-01-18 Past Anesthesia/Blood Transfusion Reactions: No Reported Reaction Additional Past Anesthesia/Blood Transfusion Reaction / Comm: Pt states that in June [address] Mckeon attempted to perform an EGD with dilation, the procedure had to be cancelled because she experienced a BP "way over 200 when they put me under" Past Psychological History: No Psychological Hx Reported Smoking Status: Never smoker Past Alcohol Use History: Daily Additional Past Alcohol Use History / Comment(s): Quit smoking in 1999. Past Drug Use History: None Reported - Past Family History Mother Family Medical History: CVA/TIA Father Family Medical History: Myocardial Infarction (MD) Medications and Allergies Home Medications Medication Instructions Recorded Confirmed Type amLODIPine [Norvasc] 5 mg PO DAILY 06/27/20 12/27/21 History HYDROcodone/APAP 10-325MG [[place] 0.5 tab PO TID 12/27/21 12/27/21 History 10-325] Metoprolol Tartrate [Lopressor] 25 mg PO BID #60 tab 12/28/21 Rx Apixaban [Eliquis] 5 mg PO BID #60 tab 12/30/21 Rx Budesonide-Formot 160-4.5 Mcg 2 puff INHALATION RT-BID each 12/31/21 Rx [Symbicort 160-4.5 Mcg Inhaler] Doxycycline [Vibramycin] 100 mg PO BID 7 Days #14 cap 12/31/21 Rx Allergies Allergy/AdvReac Type Severity Reaction Status Date / Time Penicillins Allergy Severe Anaphylaxis Verified 12/27/21 14:29 morphine Allergy Rash/Hives Verified 12/27/21 16:25 Physical Exam Vitals: Vital Signs Temp Pulse Pulse Resp BP Pulse Ox 12/31/21 15:52 98.2 F 74 16 129/70 96 12/31/21 15:41 94 18 12/31/21 15:33 90 18 12/31/21 11:22 88 18 12/31/21 11:21 97.8 F 68 17 130/80 96 12/31/21 11:10 90 18 12/31/21 08:50 97.9 F 70 17 144/75 95 12/31/21 08:30 72 18 12/31/21 08:20 68 18 95 12/31/21 04:46 97.6 F 64 16 134/74 96 12/31/21 00:27 98.5 F 71 16 115/67 96 12/30/21 20:13 98.1 F 75 16 136/61 97 12/30/21 20:10 76 12/30/21 20:00 76 Intake and Output 12/31/21 12/31/21 12/31/21 06:59 14:59 22:59 Intake Total 236 Balance 236 Intake: Oral 236 Other: Voiding Method Toilet # Voids 1 1 # Bowel Movements 1 Weight 84.822 kg - Constitutional General appearance: average body habitus, cooperative, no acute distress - EENT Eyes: anicteric sclerae, EOMI ENT: hearing grossly normal, normal oropharynx - Neck Neck: lymphadenopathy - Respiratory Respiratory: bilateral: rhonchi, wheezing - Cardiovascular Rhythm: regular Heart sounds: normal: S1, S2 Abnormal Heart Sounds: no systolic murmur, no diastolic murmur, no rub, no S3 Gallop, no S4 Gallop, no click, no other - Gastrointestinal General gastrointestinal: no absent bowel sounds, no decreased bowel sounds, no distended, no hepatomegaly, no hyperactive bowel sounds, normal bowel sounds, no organomegaly, no rigid, no scaphoid, soft, no splenomegaly, no tenderness, no umbilical hernia, no ventral hernia - Integumentary Integumentary: normal - Neurologic Neurologic: CNII-XII intact - Musculoskeletal Musculoskeletal: strength equal bilaterally - Psychiatric Psychiatric: A&O x's 3, appropriate affect, intact judgment & insight Results CBC & Chem 7: 12/29/21 08:34 12/29/21 08:34 Labs: Microbiology - Last 24 Hours (Table) 12/27/21 12:23 Blood Culture - Preliminary Blood No Growth after 96 hours 12/27/21 10:57 Blood Culture Gram Stain - Final Blood Blood Culture - Final Alpha Hemolytic Streptococcus 12/30/21 06:15 Blood Culture - Preliminary Blood No Growth after 24 hours Chest x-ray: report reviewed CT scan - chest: report reviewed Assessment and Plan (1) Lung mass Status: Acute Priority: High Code(s): R91.8 - OTHER NONSPECIFIC ABNORMAL FINDING OF LUNG FIELD SNOMED Code(s): 130232000 Plan: S/P bronch and biopsy, path pending. Discussed with pt high suspicion for malignancy. Told her to keep the PET scan appt as it will be used for staging. Explained that MRI of the brain will also be ordered. As soon as the path returns, specimen will be requested to be sent for NGS, PD-L1 testing to see if there are any mutations for targeted treatment. Plan is for f/u with Medical Oncologist 1 week after PET as all imaging and testing should be resulted and they will be able to discuss diagnosis, prognosis, and treatment options. She verbalized understanding the plan. Contact info given. All questions answered to the best of my ability.
--- NOTE | 2022-01-03 12:50 | CDI ---
Documentation Clarification Form Date: 01/03/2022 12:19:00 PM From: Narda Arredondo Admit Date: 12/30/2021 08:06:00 AM Patient Name: Gracie Ybarra Visit Number: [id number] Discharge Date: 12/31/2021 04:57:00 PM ATTENTION: The Clinical Documentation Specialists (CDI) and [facility] Coding Staff appreciate your assistance in clarifying documentation. Please respond to the clarification below the line at the bottom and electronically sign. The CDI & [facility] Coding staff will review the response and follow-up if needed. Please note: Queries are made part of the Legal Health Record. If you have any questions, please contact the author of this message via ITS. Dr. Sheila Abreu Conflicting documentation has been found in the medical record. As attending physician, please provide clarification. Per H&P and subsequent progress notes: Diagnosed with suspicious primary lung cancer/ Advanced bronchogenic carcinoma with right upper lobe mass with right hilar prominence Per Pathology: Guy Needle FNA- subcarinal - non-diagnostic of neoplasm Bronchial Washing/Lavage- R lung- non-diagnostic of neoplasm [place] Tip Cell Block- R lung- non-diagnostic of neoplasm Bronchial Brushings Smears- R lung- non-diagnostic of neoplasm Cell Block/Core Bx, and source- right main stem - non-diagnostic of neoplasm History/Risk Factors: lung mass, possible pneumonia, HTN, AFIB Clinical Indicators: SOB, cough, chest x-ray: concerning for lung mass with suspected mediastinal adenopathy and pneumonia Treatment: recent antibiotics Levaquin, DuoNeb inhalations, Symbicort, cardizem drip- for A-fib, follow up Oncology and PET Procedure performed: Bronchoscopy and multiple biopsies Please clarify which diagnosis is most appropriate: [ xxx ] Advanced Bronchogenic Carcinoma still suspected [ ] Advanced Bronchogenic Carcinoma ruled out [ ] Other (please specify) [ ] Unable to determine MTDD
--- NOTE | 2022-01-17 11:25 | P.DS ---
Providers Date of admission: 12/30/21 08:06 Expected date of discharge: 12/31/21 Attending physician: Sheila Abreu Consults: 12/27/21 13:37 Consult Physician Routine Consulting Provider: Mukesh Rocha Consult Reason/Comments: lung mass Do you want consulting provider notified?: Yes 12/29/21 08:47 Consult Physician Routine Consulting Provider: Nikita Davey Consult Reason/Comments: positive blood culture Do you want consulting provider notified?: Yes 12/31/21 10:07 Consult Physician Routine Consulting Provider: Karo Mantilla Consult Reason/Comments: Lung cancer Do you want consulting provider notified?: Yes Primary care physician: Sheila Brady [place] [facility] Course: Discharge diagnosis Right upper lobe lung mass, highly suspicious for lung cancer, awaiting bronchoscopy and biopsy Underlying history of hypertension Underlying history of COPD Underlying history of degenerative disc disease with chronic back pain Underlying history of paroxysmal atrial fibrillation, patient was seen in emergency room with an episode of atrial fibrillation on 12/20/2021, and was subsequently discharged home Underlying history of diverticulosis with episodes of diverticulitis in the past Underlying history of osteoarthritis History of morbid obesity with sleeve gastrectomy in 2018 Hospital course Gracie Ybarra, is a 76-year-old female who presented to [facility] emergency room with a chief complaint of worsening shortness of breath and cough She was evaluated in the emergency room vital examination on presentation revealed a temperature of 98.1 pulse 75 respiration 22 blood pressure 136/54 pulse ox 96% on room air Laboratory data revealed a white blood count of 7.6 hemoglobin 12.5 platelet count 166 sodium 138 potassium 4.6 chloride 102 CO2 27 BUN 15 creatinine 0.83 coronavirus PCR was negative Testing in the emergency room revealed chest x-ray done in the emergency room revealed right apical mass with suspected mediastinal adenopathy. Finding correspond to computed tomography scan of 12/19/2021, she was admitted to medical floor pulmonary consultation was requested, patient was recently seen by Dr. Rocha in that regard to Patient was admitted to medical floor for further evaluation and treatment On 12/28/2021 patient was seen and examined on the telemetry floor, she is alert and oriented 3 in no apparent distress, she is complaining of low back pain otherwise she denies any complaints at this time, during the last night patient had an episode of atrial fibrillation with rapid ventricular response, she was transferred to telemetry floor, she was started on IV Cardizem drip and cardiology consultation was requested, at this time patient is in normal sinus rhythm, there is no fever or chills no headache or dizziness no chest pain no shortness of breath no cough no nausea or vomiting no abdominal pain no diarrhea no blood in the stools no burning with urination no frequency or urgency and no hematuria, bronchoscopy scheduled for this morning was postponed due to episode of atrial fibrillation. On 12/29/2021 patient was seen and examined on the telemetry floor she is alert and oriented 3 she is complaining of low back pain otherwise she denies any complaints at this time there is no fever or chills no headache or dizziness no chest pain no shortness of breath no cough no nausea or vomiting no abdominal pain no diarrhea no blood in the stools no burning with urination no frequency or urgency and no hematuria. This morning blood culture was reported as positive for gram-positive cocci, IV vancomycin pharmacy to dose was added to medication regimen, consultation for infectious disease was initiated, awaiting further culture results. On 12/30/2021 patient was seen and examined on the telemetry floor, she is alert and oriented 3 in no apparent distress she is complaining of lower back pain otherwise she denies any complaints there is no fever or chills no headache or dizziness no chest pain no shortness of breath no cough no nausea or vomiting no abdominal pain no diarrhea no blood in the stools no burning with urination no frequency or urgency and no hematuria, plan for pulmonary is to proceed with bronchoscopy. On 12/31/2021 patient is alert and oriented 3. Patient was evaluated by oncology services outpatient testing discussed with patient per oncology services for follow-up outpatient for further plan of care Patient Condition at Discharge: Stable Plan - Discharge Summary Discharge Rx Participant: Yes New Discharge Prescriptions: New Apixaban [Eliquis] 5 mg PO BID #60 tab Budesonide-Formot 160-4.5 Mcg [Symbicort 160-4.5 Mcg Inhaler] 2 puff INHALATION RT-BID each Continue HYDROcodone/APAP 10-325MG [[place] 10-325] 0.5 tab PO TID amLODIPine [Norvasc] 5 mg PO DAILY Changed Metoprolol Tartrate [Lopressor] 25 mg PO BID #60 tab Discharge Medication List amLODIPine [Norvasc] 5 mg PO DAILY 06/27/20 [History] HYDROcodone/APAP 10-325MG [[place] 10-325] 0.5 tab PO TID 12/27/21 [History] Metoprolol Tartrate [Lopressor] 25 mg PO BID #60 tab 12/28/21 [Rx] Apixaban [Eliquis] 5 mg PO BID #60 tab 12/30/21 [Rx] Budesonide-Formot 160-4.5 Mcg [Symbicort 160-4.5 Mcg Inhaler] 2 puff INHALATION RT-BID each 12/31/21 [Rx] Follow up Appointment(s)/Referral(s): Damian Celis MD [STAFF PHYSICIAN] - 1 Week (Office to call patient to set up appointment. ) Sheila Abreu MD [Primary Care Provider] - 01/02/22 2:15 pm [facility] Visiting Nurse, [NON-STAFF] - Discharge Disposition: HOME SELF-CARE
--- NOTE | 2022-01-26 18:12 | P.PN ---
Subjective Progress Note Date: 12/30/21 Principal diagnosis: Positive blood culture Patient is a 70-year-old female with recent admission to the hospital with shortness of breath did have a chest x-ray and CT concerning for possible lung mass now with evidence of positive blood culture with gram-positive cocci. On today's evaluation that is 12/30/2021, the patient remains to be afebrile, the patient is breathing comfortably on room air denies any chest pain no worsening cough or sputum production no abdominal pain or diarrhea Objective - Vital Signs Vital signs: Vital Signs Temp 97.8 F 12/30/21 12:00 Pulse 60 12/30/21 12:21 Resp 18 12/30/21 12:21 BP 118/56 12/30/21 12:21 Pulse Ox 97 12/30/21 12:21 FiO2 21 12/28/21 09:07 Intake & Output 12/29/21 12/30/21 12/30/21 18:59 06:59 18:59 Intake Total 240 990 Balance 240 990 Intake: IV 400 Intake, IV Titration 50 Amount cefTRIAXone 2 gm In 50 Sodium Chloride 0.9% 50 ml @ 100 mls/hr IVPB Q24HR [facility] Rx#:[id number] Oral 240 540 Other: # Voids 2 1 - Exam GENERAL DESCRIPTION: An elderly female lying in bed in no distress RESPIRATORY SYSTEM: Unlabored breathing , decreased breath sounds at bases HEART: S1 S2 regular rate and rhythm , ABDOMEN: Soft , no tenderness EXTREMITIES: No edema feet - Labs CBC & Chem 7: 12/29/21 08:34 12/29/21 08:34 Labs: Abnormal Lab Results - Last 24 Hours (Table) 12/30/21 Range/Units 06:15 C-Reactive Protein 4.7 H (<1.0) mg/dL Microbiology - Last 24 Hours (Table) 12/27/21 10:57 Blood Culture Gram Stain - Preliminary Blood Blood Culture - Preliminary Streptococcus species 12/27/21 12:23 Blood Culture - Preliminary Blood No Growth after 48 hours Assessment and Plan (1) Positive blood culture Status: Acute Code(s): R78.81 - BACTEREMIA SNOMED Code(s): 247821367 Plan: 1patient with gram-positive bacteremia in this patient with a right upper lobe mass concerning for possible malignancy and a question of pneumonia however the patient do not have any fever or elevated white count with a question of possible skin contamination. 2blood cultures has pain repeated document clearance of bacteremia we will also check a CRP and a procalcitonin level. 3patient to continue with vancomycin pharmacy to dose target trough of 15 while watching kidney function and vancomycin trough closely while waiting for cultures to be finalize Time with Patient: Less than 30
--- NOTE | 2022-01-26 18:14 | P.PN ---
Subjective Progress Note Date: 12/31/21 Principal diagnosis: Positive blood culture Patient is a 70-year-old female with recent admission to the hospital with shortness of breath did have a chest x-ray and CT concerning for possible lung mass now with evidence of positive blood culture with gram-positive cocci. On today's evaluation that is 12/31/2021, the patient continues to be afebrile, the patient is breathing comfortably on room air, the patient denies any chest pain no worsening cough or sputum production. Denies nausea no vomiting no abdominal pain or diarrhea Objective - Vital Signs Vital signs: Vital Signs Temp 97.8 F 12/31/21 11:21 Pulse 88 12/31/21 11:22 Resp 18 12/31/21 11:22 BP 130/80 12/31/21 11:21 Pulse Ox 96 12/31/21 11:21 FiO2 21 12/28/21 09:07 Intake & Output 12/30/21 12/31/21 12/31/21 18:59 06:59 18:59 Intake Total 990 240 118 Balance 990 240 118 Intake: IV 400 Intake, IV Titration 50 Amount cefTRIAXone 2 gm In 50 Sodium Chloride 0.9% 50 ml @ 100 mls/hr IVPB Q24HR [facility] Rx#:[id number] Oral 540 240 118 Other: Voiding Method Toilet # Voids 1 1 1 # Bowel Movements 1 - Exam GENERAL DESCRIPTION: An elderly female lying in bed in no distress RESPIRATORY SYSTEM: Unlabored breathing , decreased breath sounds at bases HEART: S1 S2 regular rate and rhythm , ABDOMEN: Soft , no tenderness EXTREMITIES: No edema feet - Labs CBC & Chem 7: 12/29/21 08:34 12/29/21 08:34 Labs: Microbiology - Last 24 Hours (Table) 12/27/21 10:57 Blood Culture Gram Stain - Final Blood Blood Culture - Final Alpha Hemolytic Streptococcus 12/30/21 06:15 Blood Culture - Preliminary Blood No Growth after 24 hours 12/27/21 12:23 Blood Culture - Preliminary Blood No Growth after 72 hours Assessment and Plan (1) Positive blood culture Status: Acute Code(s): R78.81 - BACTEREMIA SNOMED Code(s): 701925496 Plan: 1patient with gram-positive bacteremia in this patient with a right upper lobe mass concerning for possible malignancy and a question of pneumonia however the patient do not have any fever or elevated white count with a question of po ssible skin contamination. 2blood cultures has pain repeated and remains to be negative. 3patient blood culture has been finalized as alpha hemolytic streptococcus with a question of possible contaminated with repeat blood culture negative may consider short course of oral Ceftin on discharge and close outpatient follow-up Time with Patient: Less than 30
== END 2021-12-31 16:57 | disposition home health service (06) | DRG 166 ==
LOC: EC 09:49 → 6NMEDSUR 13:37 → 5NMEDONC 14:04 → 3SCARD 21:11 → OBSVTOIN 12-30 08:06
PROVIDERS: ADMIT Internal Medicine; ATTEND Internal Medicine
PROC: 0B9K8ZX Drainage of Right Lung, Via Natural or Artificial Opening Endoscopic, Diagnostic (ICD-10-PCS; principal; 2021-12-30 07:30)
PROC: 0BD68ZX Extraction of Right Lower Lobe Bronchus, Via Natural or Artificial Opening Endoscopic, Diagnostic (ICD-10-PCS; principal; 2021-12-30 07:30)
PROC: 0BD58ZX Extraction of Right Middle Lobe Bronchus, Via Natural or Artificial Opening Endoscopic, Diagnostic (ICD-10-PCS; principal; 2021-12-30 07:30)
PROC: 0BD38ZX Extraction of Right Main Bronchus, Via Natural or Artificial Opening Endoscopic, Diagnostic (ICD-10-PCS; principal; 2021-12-30 07:30)
PROC: 0BBK8ZX Excision of Right Lung, Via Natural or Artificial Opening Endoscopic, Diagnostic (ICD-10-PCS; principal; 2021-12-30 07:30)
DX: C34.11 Malignant neoplasm of upper lobe, right bronchus or lung (principal); J18.9 Pneumonia, unspecified organism; J44.1 Chronic obstructive pulmonary disease with (acute) exacerbation; J44.0 Chronic obstructive pulmonary disease with (acute) lower respiratory infection; I10 Essential (primary) hypertension; H35.30 Unspecified macular degeneration; I48.0 Paroxysmal atrial fibrillation; R59.0 Localized enlarged lymph nodes; K57.90 Diverticulosis of intestine, part unspecified, without perforation or abscess without bleeding; E66.9 Obesity, unspecified; G89.29 Other chronic pain; M19.90 Unspecified osteoarthritis, unspecified site; M54.50 Low back pain, unspecified; Z68.32 Body mass index [BMI] 32.0-32.9, adult; Z87.891 Personal history of nicotine dependence; Z98.84 Bariatric surgery status; Z79.899 Other long term (current) drug therapy; Z88.0 Allergy status to penicillin
CPT/HCPCS: 31623; 31624; 31625; 31629; 36415; 71045; 71046; 80053; 83605; 84145; 85025; 85610; 85730; 86140; 87040; 87635; 88104; 88108; 88173; 88305; 89050; 93005; 94640; 94760; 96365; 99285

== ENCOUNTER → 2022-01-10 | Outpatient (CLI) | payer MEDICARE, OTHER ==
--- NOTE | 2022-01-10 12:29 | XR ---
EXAMINATION TYPE: XR lumbosacral spine min 4V DATE OF EXAM: 01/10/2022 11:40 AM INDICATION: Patient age:Female; 76 years old; Reason for study: M54.50 Low back pain; COMPARISON: 03/28/2021 TECHNIQUE: Frontal, lateral , bilateral oblique and coned in L5-S1 lateral views of the spine. FINDINGS: No evidence of any acute osseous pathology. No evidence of loss of vertebral body height i s seen. There is normal alignment of the lumbar vertebral bodies. Mild scattered disc space narrowing . Multilevel marginal osteophyte formation throughout the visualized spine. There is facet joint arth ropathy throughout the spine. Scattered at least mild neural foraminal stenosis. Surgical clips in th e upper abdomen. Atherosclerosis of the arterial vasculature. Right upper quadrant cholecystectomy cl ips. IMPRESSION: 1. No acute fracture. 2. Moderate multilevel disc degeneration.
== END | disposition home or self-care (01) ==
LOC: RADXRMAIN 11:14
PROVIDERS: ATTEND Internal Medicine
DX: M51.36 Other intervertebral disc degeneration, lumbar region (principal); M54.50 Low back pain, unspecified
CPT/HCPCS: 72110

== ENCOUNTER 2022-01-12 13:56 | Inpatient (IN) | payer MEDICARE, OTHER ==
[2022-01-12] MEDS ORDERED: DILTIAZEM DRIP BOLUS FROM BAG 1 MG SOLN IV ONE (14:36)
[2022-01-12] MEDS ORDERED: SODIUM CHLORIDE 0.9% 500 ML 500 ML IV STA (14:36)
--- NOTE | 2022-01-12 14:39 | ED ---
Back Pain HPI - General Chief Complaint: Back Pain/Injury Stated Complaint: Back pain Time Seen by Provider: 01/12/22 14:30 Source: patient, RN notes reviewed, old records reviewed Limitations: no limitations - History of Present Illness Initial Comments: 76-year-old female alert and oriented 4 presents to the emergency room with complaints of low back pain and no bowel movement for the past 9 days. She has been having low back pain and seen her primary care doctor who ordered an Xray and put her on pain medication. States the pain medication causes constipation and she has tried stool softeners and enemas with no relief. Patient states she was also recently diagnosed with lung cancer 2 weeks ago here in the emergency room. She was scheduled to have a PET scan this past Thursday but the machine was not working. Today patient states she is having difficulty ambulating due to the back pain. Denies any chest pain, difficulty breathing, no fevers or vomiting. While in hospital was found to have new onset atrial fibrillation and placed on metoprolol and Eliquis. MD Complaint: back pain -: week(s) Similar Symptoms Previously: Yes Place: home Consistency: constant Improves With: none Worsens With: walking Context: other (Constipation, recent diagnosis of lung cancer, daily pain medication) Associated Symptoms: difficulty walking, constipation - Related Data Home Medications Medication Instructions Recorded Confirmed amLODIPine [Norvasc] 5 mg PO DAILY 06/27/20 01/12/22 HYDROcodone/APAP 10-325MG [[place] 0.5 tab PO TID 12/27/21 01/12/22 10-325] Previous Rx's Medication Instructions Recorded Metoprolol Tartrate [Lopressor] 25 mg PO BID #60 tab 12/28/21 Apixaban [Eliquis] 5 mg PO BID #60 tab 12/30/21 Budesonide-Formot 160-4.5 Mcg 2 puff INHALATION RT-BID each 12/31/21 [Symbicort 160-4.5 Mcg Inhaler] Allergies Allergy/AdvReac Type Severity Reaction Status Date / Time Penicillins Allergy Severe Anaphylaxis Verified 01/12/22 16:43 morphine Allergy Rash/Hives Verified 01/12/22 16:43 Review of Systems ROS Statement: Those systems with pertinent positive or pertinent negative responses have been documented in the HPI. ROS Other: All systems not noted in ROS Statement are negative. Past Medical History Past Medical History: Eye Disorder, Hypertension, Osteoarthritis (OA) Additional Past Medical History / Comment(s): Hx. of DIVERTICULITIS, LT EYE MAC. DEGEN. HTN resolved after surgery., dysphagia History of Any Multi-Drug Resistant Organisms: None Reported Past Surgical History: Bariatric Surgery, Cholecystectomy, Orthopedic Surgery, Tubal Ligation Additional Past Surgical History / Comment(s): RIGHT SHOULDER SX, COLONOSCOPY, EGD sleeve gastrectomy 02-01-18 Past Anesthesia/Blood Transfusion Reactions: No Reported Reaction Additional Past Anesthesia/Blood Transfusion Reaction / Comment(s): Pt states that in June [address] Mckeon attempted to perform an EGD with dilation, the procedure had to be cancelled because she experienced a BP "way over 200 when they put me under" Past Psychological History: No Psychological Hx Reported Smoking Status: Never smoker Past Alcohol Use History: Daily Past Drug Use History: None Reported - Past Family History Mother Family Medical History: CVA/TIA Father Family Medical History: Myocardial Infarction ([place]) General Exam Limitations: no limitations General appearance: alert, in no apparent distress Head exam: Present: atraumatic Eye exam: Absent: scleral icterus, conjunctival injection, periorbital swelling Neck exam: Absent: tenderness, meningismus Respiratory exam: Present: wheezes (Expiratory on the right). Absent: respiratory distress, stridor, chest wall tenderness, accessory muscle use Cardiovascular Exam: Present: tachycardia, irregular rhythm GI/Abdominal exam: Present: soft. Absent: distended, tenderness, rigid Extremities exam: Present: full ROM, normal capillary refill, pedal edema (Trace bilateral). Absent: tenderness, calf tenderness Back exam: Absent: CVA tenderness (R), CVA tenderness (L), paraspinal tendern ess, vertebral tenderness, rash noted Expanded Back exam: Absent: saddle anesthesia Back exam: Negative Straight Leg Raising: Left, Right Neurological exam: Present: alert, oriented X3 Psychiatric exam: Present: normal affect, normal mood Skin exam: Present: warm, dry, normal color. Absent: cyanosis, diaphoretic, petechiae, pallor Course Vital Signs 01/12/22 01/12/22 01/12/22 14:17 15:42 16:01 Temperature 98.2 F Pulse Rate 168 H 141 H 121 H Respiratory 16 20 Rate Blood Pressure 145/70 162/80 137/94 O2 Sat by Pulse 96 98 Oximetry 01/12/22 16:52 Temperature Pulse Rate 151 H Respiratory Rate Blood Pressure 137/84 O2 Sat by Pulse Oximetry - Reevaluation(s) Reevaluation #1: 01/12/22 16:24 She remains tachycardic Cardizem drip increased. D-dimer elevated likely related to lung cancer however CT angiogram was performed to rule out pulmonary embolism. Time: 16:15 Medical Decision Making - Medical Decision Making Patient states has right upper lung mass/lung cancer diagnosed 2 weeks ago. Has been seen by Dr. Mantilla, and Dr Akers. She was scheduled for a PET scan this Thursday was canceled due to machine problems. Patient was also diagnosed with new onset atrial fibrillation at that admission and placed on metoprolol and Eliquis by Dr Celis. X-ray lumbar sacral spine orderd by PCP performed on January 10 for patient's back pain showed no acute fracture, moderate multilevel disc degeneration. Labs performed today show no evidence of leukocytosis. Hemoglobin and hematocrit are stable. D-dimer is elevated at 4.68, troponin is elevated at 0.388. EKG shows atrial fibrillation with rapid ventricular rate of 129. She was started on Cardizem gtt with bolus. Elevated d-dimer is likely related to her lung cancer. She denies any chest pain or difficulty breathing. Due to elevation CT angiogram was ordered. CT angiogram shows no evidence of pulmonary embolism. Multiple abnormalities consistent with tumor. The cavitating mass in the right lower lobe and also left-sided paraspinal mass increased compared to CT dated 12/19/2021. This is consistent with progression of tumor. There is also infiltrate of the right upper lobe increased compared to old exam. Case discussed with Dr. Thornton patient will be given Zithromax and Rocephin for pneumonia. Patient was given multiple doses of pain medication for relief of back pain. Patient will be admitted to the hospital A. fib with RVR on a Cardizem drip, elevated d-dimer and troponin likely related to lung cancer, and intractable back pain. Consults to pulmonology, cardiology, and oncology. Patient is agreeable to this plan of care. - Lab Data Result diagrams: 01/12/22 15:03 01/12/22 15:03 Lab Results 01/12/22 01/12/22 01/12/22 Range/Units 15:03 15:03 15:03 WBC 8.8 (3.8-10.6) k/uL RBC 4.21 (3.80-5.40) m/uL Hgb 12.1 (11.4-16.0) gm/dL Hct 36.4 (34.0-46.0) % MCV 86.6 (80.0-100.0) fL MCH 28.7 (25.0-35.0) pg MCHC 33.1 (31.0-37.0) g/dL RDW 13.0 (11.5-15.5) % Plt Count 186 (150-450) k/uL MPV 8.8 Neutrophils % 79 % Lymphocytes % 11 % Monocytes % 6 % Eosinophils % 1 % Basophils % 0 % Neutrophils # 7.0 (1.3-7.7) k/uL Lymphocytes # 1.0 (1.0-4.8) k/uL Monocytes # 0.5 (0-1.0) k/uL Eosinophils # 0.1 (0-0.7) k/uL Basophils # 0.0 (0-0.2) k/uL PT 12.4 H (9.0-12.0) sec INR 1.2 H (<1.2) APTT 27.3 (22.0-30.0) sec D-Dimer 4.68 H (<0.60) mg/L FEU Sodium 136 L (137-145) mmol/L Potassium 4.4 (3.5-5.1) mmol/L Chloride 103 (98-107) mmol/L Carbon Dioxide 26 (22-30) mmol/L Anion Gap 7 mmol/L BUN 17 (7-17) mg/dL Creatinine 0.52 (0.52-1.04) mg/dL Est GFR (CKD-EPI)AfAm >90 (>60 ml/min/1.73 sqM) Est GFR (CKD-EPI)NonAf >90 (>60 ml/min/1.73 sqM) Glucose 114 H (74-99) mg/dL Plasma Lactic Acid Ervin (0.7-2.0) mmol/L Calcium 8.8 (8.4-10.2) mg/dL Magnesium 1.9 (1.6-2.3) mg/dL Total Bilirubin 0.6 (0.2-1.3) mg/dL AST 34 (14-36) U/L ALT 16 (4-34) U/L Alkaline Phosphatase 138 H (38-126) U/L Troponin I (0.000-0.034) ng/mL Total Protein 6.9 (6.3-8.2) g/dL Albumin 3.8 (3.5-5.0) g/dL 01/12/22 01/12/22 Range/Units 15:03 15:03 WBC (3.8-10.6) k/uL RBC (3.80-5.40) m/uL Hgb (11.4-16.0) gm/dL Hct (34.0-46.0) % MCV (80.0-100.0) fL MCH (25.0-35.0) pg MCHC (31.0-37.0) g/dL RDW (11.5-15.5) % Plt Count (150-450) k/uL MPV Neutrophils % % Lymphocytes % % Monocytes % % Eosinophils % % Basophils % % Neutrophils # (1.3-7.7) k/uL Lymphocytes # (1.0-4.8) k/uL Monocytes # (0-1.0) k/uL Eosinophils # (0-0.7) k/uL Basophils # (0-0.2) k/uL PT (9.0-12.0) sec INR (<1.2) APTT (22.0-30.0) sec D-Dimer (<0.60) mg/L FEU Sodium (137-145) mmol/L Potassium (3.5-5.1) mmol/L Chloride (98-107) mmol/L Carbon Dioxide (22-30) mmol/L Anion Gap mmol/L BUN (7-17) mg/dL Creatinine (0.52-1.04) mg/dL Est GFR (CKD-EPI)AfAm (>60 ml/min/1.73 sqM) Est GFR (CKD-EPI)NonAf (>60 ml/min/1.73 sqM) Glucose (74-99) mg/dL Plasma Lactic Acid Ervin 1.2 (0.7-2.0) mmol/L Calcium (8.4-10.2) mg/dL Magnesium (1.6-2.3) mg/dL Total Bilirubin (0.2-1.3) mg/dL AST (14-36) U/L ALT (4-34) U/L Alkaline Phosphatase (38-126) U/L Troponin I 0.388 H* (0.000-0.034) ng/mL Total Protein (6.3-8.2) g/dL Albumin (3.5-5.0) g/dL - EKG Data -: EKG Interpreted by Me (Afib with rapid ventricular response 129, QRS 0.77, QTC 0.403) Rate: tachycardia Critical Care Time Critical Care Time: Yes Total Critical Care Time: 32 Disposition Clinical Impression: Atrial fibrillation with rapid ventricular response, Intractable low back pain, Elevated troponin, Elevated d-dimer, Lung cancer Disposition: ADMITTED IP TO THIS HOSP Referrals: Sheila Abreu MD [Primary Care Provider] - 1-2 days Decision Date: 01/12/22 Decision Time: 16:16
[2022-01-12] MEDS ORDERED: fentaNYL (PF) 50 MCG/ML 2 ML AMP IVP STA (14:56)
[2022-01-12] MEDS ORDERED: DILTIAZEM 125 MG in SODIUM CHLORIDE 0.9% 100 ML IV SCH (15:15)
[2022-01-12] MEDS ORDERED: HYDROmorphone 0.5 MG/0.5 ML SYRINGE IVP STA ×2 (15:25→17:15)
[2022-01-12 15:26] LABS: ALT 16 U/L (4-34); AST 34 U/L (14-36); African American GFR (CKD) >90 (>60 ml/min/1.73 sqM); Albumin 3.8 g/dL (3.5-5.0); Alkaline Phosphatase 138 U/L (38-126); Anion Gap 7 mmol/L; Blood Urea Nitrogen 17 mg/dL (7-17); Calcium 8.8 mg/dL (8.4-10.2); Carbon Dioxide 26 mmol/L (22-30); Chloride 103 mmol/L (98-107); Glucose 114 mg/dL (74-99); Magnesium 1.9 mg/dL (1.6-2.3); Non-African American GFR(CKD) >90 (>60 ml/min/1.73 sqM); Sodium 136 mmol/L (137-145); Total Bilirubin 0.6 mg/dL (0.2-1.3); Total Protein 6.9 g/dL (6.3-8.2)
[2022-01-12 15:27] LABS: Basophils % (A) 0 %; Eosinophils # (A) 0.1 k/uL (0-0.7); Eosinophils % (A) 1 %; HCT 36.4 % (34.0-46.0); HGB 12.1 gm/dL (11.4-16.0); Lymphocytes % (A) 11 %; MCH 28.7 pg (25.0-35.0); MCHC 33.1 g/dL (31.0-37.0); MCV 86.6 fL (80.0-100.0); Mean Platelet Volume 8.8; Monocytes # (A) 0.5 k/uL (0-1.0); Monocytes % (A) 6 %; Neutrophils % (A) 79 %; Platelet Count 186 k/uL (150-450); RBC 4.21 m/uL (3.80-5.40); WBC 8.8 k/uL (3.8-10.6)
[2022-01-12 15:52] LABS: INR 1.2 (<1.2); Partial Thromboplastin Time 27.3 sec (22.0-30.0); Prothrombin Time 12.4 sec (9.0-12.0)
[2022-01-12 16:00] LABS: Potassium 4.4 mmol/L (3.5-5.1)
[2022-01-12] MEDS ORDERED: SODIUM CHLORIDE 0.9% 500 ML 500 ML IV ONE (16:36)
--- NOTE | 2022-01-12 16:47 | CT ---
EXAMINATION TYPE: CT angio chest DATE OF EXAM: 01/12/2022 COMPARISON: 12/19/2021 HISTORY: pain, elevated d dimer. hx of lung ca CT DLP: 365.9 mGycm Automated exposure control for dose reduction was used. CONTRAST: Performed with IV Contrast, patient injected with 100ml mL of Isovue 370. There are 3-D post processed images. Images obtained from the thoracic inlet to the diaphragm with th e IV contrast. There is large infiltrative mass at the right pulmonary hilum extending into the subcarinal region an d the pretracheal region. There is patchy airspace consolidation in the lateral right upper lobe. Tho racic aorta is atheromatous. No aneurysm or dissection. The ascending aorta measures 3.7 cm. There is 2 cm cavitating infiltrate in the superior segment right lower lobe. There is a 2.5 cm mass in the left paraspinal region of the superior segment left lower lobe. No evidence of filling defect in the pulmonary arteries. There is some encasement of the right lower lobe pulmonary artery branches. Thoracic spine is intact. No compression fracture. Sternum is intact. No evidence of rib fracture. The upper abdominal soft tissues are intact. There are large bowel diverticula. IMPRESSION: No evidence of pulmonary embolism. Multiple abnormalities consistent with tumor. This cavitating mass in the right lower lobe and also l eft side paraspinal mass which are increased compared to CT scan of 12/19/2021 and consistent with pro gression of tumor. Infiltrate right upper lobe increased compared to old exam.
[2022-01-12] MEDS: SODIUM CHLORIDE 0.9% 1,000 ML IV SCH (16:50)
--- NOTE | 2022-01-12 16:54 | XR ---
EXAMINATION TYPE: XR KUB DATE OF EXAM: 01/12/2022 COMPARISON: 03/04/2018 HISTORY: Constipation TECHNIQUE: 2 views upright FINDINGS: There is no sign of intestinal obstruction or pneumoperitoneum. Fecal pattern is normal. Th ere are clips from cholecystectomy. There is likely some infiltrate in the right lower lobe. No patho logic calcifications over the kidneys. IMPRESSION: Nonacute abdomen. There is likely some right lower lobe pneumonia that is new compared to old exam.
[2022-01-12] MEDS ORDERED: NALOXONE 0.4 MG/ML 1 ML VIAL IV PRN (17:07)
[2022-01-12] MEDS ORDERED: AZITHROMYCIN 500 MG in SODIUM CHLORIDE 0.9% 250 ML IVPB STA (17:14)
[2022-01-12] MEDS ORDERED: cefTRIAXone IN SWFI 1,000 MG/10 ML SYRINGE IVP STA (17:14)
[2022-01-12] MEDS: HYDROcodone/APAP 10-325MG 1 EACH TAB PO SCH (17:24)
[2022-01-12] MEDS: HYDROmorphone 0.5 MG/0.5 ML SYRINGE IVP PRN (20:50)
[2022-01-12] MEDS: APIXABAN 5 MG TAB PO SCH (20:51)
[2022-01-12] MEDS: METOPROLOL TARTRATE 25 MG TAB PO SCH (20:51)
[2022-01-12] MEDS: SYMBICORT 160-4.5 MCG INHALER INHALATION SCH (21:07)
[2022-01-12] MEDS: ALPRAZolam 0.25 MG TAB PO PRN (22:16)
[2022-01-13] MEDS: HYDROmorphone 0.5 MG/0.5 ML SYRINGE IVP PRN ×5 (01:25→23:53)
[2022-01-13] MEDS: ACETAMINOPHEN TAB 325 MG TAB PO PRN ×2 (01:26→11:50)
[2022-01-13] MEDS: APIXABAN 5 MG TAB PO SCH (08:23)
[2022-01-13] MEDS: HYDROcodone/APAP 10-325MG 1 EACH TAB PO SCH (08:23)
[2022-01-13] MEDS: METOPROLOL TARTRATE 25 MG TAB PO SCH ×2 (08:23→20:36)
[2022-01-13] MEDS: amLODIPine 5 MG TAB PO SCH (08:23)
--- NOTE | 2022-01-13 09:12 | PN ---
PROGRESS NOTE HISTORY OF PRESENT ILLNESS: A 76-year-old lady who is admitted to hospital primarily complaining of low back pain and no bowel movements for the last week or so. She had recently been diagnosed with lung cancer about 2 weeks ago and is scheduled for a PET scan. She has been diagnosed with atrial fibrillation, started on anticoagulant recently. The patient was on Eliquis along with metoprolol. At the time of my evaluation this morning, she denies chest pain or difficulty in breathing. Her atrial fibrillation was diagnosed at her last admission. She sees Dr. Teja Celis regularly in the office. At the time of my evaluation this morning, she is in sinus rhythm. PAST MEDICAL HISTORY: Significant for hypertension, paroxysmal atrial fibrillation, and possible lung cancer. MEDICATIONS AT HOME: 1. Norvasc 5 daily. 2. Lopressor 25 b.i.d. 3. [place]. 4. Symbicort. 5. Eliquis 5 b.i.d. ALLERGIES: Penicillin and morphine. FAMILY HISTORY: Negative for premature coronary artery disease. SOCIAL HISTORY: Negative for current smoking, EtOH abuse or drug abuse. REVIEW OF SYSTEMS: HEENT: Unremarkable. CARDIAC: As described above. RESPIRATORY: As described above. GI: Negative. GENITOURINARY: Negative. ALLERGY/IMMUNOLOGY: Negative. SKIN: Negative. MUSCULOSKELETAL: As described above. PSYCHOSOCIAL: Negative. DERM: Negative. CONSTITUTIONAL: Negative. ONCOLOGICAL: Negative. PRODUCTION PACKAGER: Negative. Rest of the system review is not relevant. PHYSICAL EXAMINATION: GENERAL: On exam, the patient is comfortable at rest. VITAL SIGNS: Afebrile, heart rate is 66 beats per minute, blood pressure is 133/60, respiratory rate is 12, O2 saturation is 96% on room air. NECK: There is no jugular venous distention. Carotid upstroke is diminished. There is no bruit. CHEST: Reveals good air entry bilaterally. HEART: Reveals first and second heart sounds and systolic murmur at the left lower sternal border. ABDOMEN: Soft. EXTREMITIES: Did not reveal any edema. LABORATORY DATA: Labs show that the hemoglobin is 12, platelet count is 186, potassium is 4.4, creatinine is 0.5. Troponin is mildly elevated at 0.3 and 0.4. An EKG on this admission revealed sinus rhythm with nonspecific ST-T wave changes. I do not have recent echocardiogram. A CT scan of the chest is negative for pulmonary embolism, ascending aorta appears mildly dilated. ASSESSMENT: 1. Paroxysmal atrial fibrillation. 2. Elevated troponin of unclear clinical significance in a patient who has possible metastatic malignancy. 3. Elevated D-dimer with a negative CT scan of the chest for pulmonary embolism. PLAN: From cardiac standpoint, I will continue the Eliquis, beta blockers. Stop the intravenous Cardizem at this time as on clinical exam patient seems to be in sinus rhythm. Continue the beta dawit and obtain a 2D echo. MMGURU / JOHNN: [id number] /
[2022-01-13] MEDS: SYMBICORT 160-4.5 MCG INHALER INHALATION SCH ×2 (09:21→20:07)
[2022-01-13] MEDS: PANTOPRAZOLE 40 MG/10 ML VIAL IV SCH (10:33)
[2022-01-13] MEDS: SODIUM CHLORIDE 0.9% 1,000 ML IV SCH ×2 (10:48→23:06)
[2022-01-13 11:15] LABS: African American GFR (CKD) >90 (>60 ml/min/1.73 sqM); Anion Gap 8 mmol/L; Blood Urea Nitrogen 15 mg/dL (7-17); Calcium 8.7 mg/dL (8.4-10.2); Carbon Dioxide 24 mmol/L (22-30); Chloride 104 mmol/L (98-107); Glucose 95 mg/dL (74-99); Non-African American GFR(CKD) 90 (>60 ml/min/1.73 sqM); Potassium 4.3 mmol/L (3.5-5.1); Sodium 136 mmol/L (137-145)
[2022-01-13] MEDS: ALPRAZolam 0.25 MG TAB PO PRN (11:50)
[2022-01-13] MEDS: HYDROcodone/APAP 10-325MG 1 EACH TAB PO PRN ×2 (13:04→20:36)
[2022-01-13] MEDS: IOPAMIDOL CONTRAST (ORAL USE) VIAL PO PRN ×2 (15:08→16:01)
--- NOTE | 2022-01-13 15:19 | P.CNPUL ---
History of Present Illness Consult date: 01/13/22 Requesting physician: Sheila Abreu Chief complaint: Weakness, low back pain, and no bowel movements for the past 9 days History of present illness: This is a 76-year-old female with history of multiple medical problems, patient was seen on consultation back on 12/27/21, and she was felt to have bronchogenic carcinoma. She was seen by Dr. logan performed bronchoscopy, mccallum needle aspirations, endobronchial biopsies, however the pathology came back nondiagnostic. Patient was eventually discharged home after her bronchoscopy and she was supposed to follow-up with me on outpatient basis. Patient was supposed to have a PET scan on outpatient basis also. And neither one of those was done. Patient came to the ER this morning complaining of generalized symptoms of weakness, low back pain, and constipation. Repeat CT of the chest showed multiple abnormalities consistent with bronchogenic carcinoma including a cavitating mass in the right lower lobe, left side paraspinal mass which has increased in size compared to a few weeks ago, and there is also a right upper lobe mass/consolidation which is also increased in size compared to the previous exam. All the findings are pointing to worsening bronchogenic carcinoma. X- rays of lumbar spine showed moderate multilevel disc degeneration. CBC is relatively normal electrolytes are normal, d-dimer is 4.68. Electrolytes and renal profile are normal Review of Systems Constitutional: Weight loss, weakness, fatigue. No fever no chills. HEENT: Negative Pulmonary: Shortness of breath, intermittent cough and wheezing Cardiac: Negative GI: Constipation no nausea no vomiting no melena no hematemesis. Genitourinary: Negative Musculoskeletal: Negative Hematologic: Negative Psychiatric: Negative Endocrine: Negative Neurologic: Mostly weakness. And low back pain. Skin: Negative Past Medical History Past Medical History: Eye Disorder, Hypertension, Osteoarthritis (OA) Additional Past Medical History / Comment(s): Hx. of DIVERTICULITIS, LT EYE MAC. DEGEN. HTN resolved after surgery., dysphagia History of Any Multi-Drug Resistant Organisms: None Reported Past Surgical History: Bariatric Surgery, Cholecystectomy, Orthopedic Surgery, Tubal Ligation Additional Past Surgical History / Comment(s): RIGHT SHOULDER SX, COLONOSCOPY, EGD sleeve gastrectomy 02-01-18 Past Anesthesia/Blood Transfusion Reactions: No Reported Reaction Additional Past Anesthesia/Blood Transfusion Reaction / Comment(s): Pt states that in June [address] Mckeon attempted to perform an EGD with dilation, the procedure had to be cancelled because she experienced a BP "way over 200 when they put me under" Past Psychological History: No Psychological Hx Reported Smoking Status: Never smoker Past Alcohol Use History: Daily Additional Past Alcohol Use History / Comment(s): Quit smoking in 1999. Past Drug Use History: None Reported - Past Family History Mother Family Medical History: CVA/TIA Father Family Medical History: Myocardial Infarction ([place]) Medications and Allergies Home Medications Medication Instructions Recorded Confirmed Type amLODIPine [Norvasc] 5 mg PO DAILY 06/27/20 01/12/22 History HYDROcodone/APAP 10-325MG [[place] 0.5 tab PO TID 12/27/21 01/12/22 History 10-325] Metoprolol Tartrate [Lopressor] 25 mg PO BID #60 tab 12/28/21 01/12/22 Rx Apixaban [Eliquis] 5 mg PO BID #60 tab 12/30/21 01/12/22 Rx Budesonide-Formot 160-4.5 Mcg 2 puff INHALATION RT-BID each 12/31/21 01/12/22 Rx [Symbicort 160-4.5 Mcg Inhaler] Allergies Allergy/AdvReac Type Severity Reaction Status Date / Time Penicillins Allergy Severe Anaphylaxis Verified 01/12/22 16:43 morphine Allergy Rash/Hives Verified 01/12/22 16:43 Physical Exam Vitals: Vital Signs Temp Pulse Pulse Resp BP BP Pulse Ox 01/13/22 12:41 98.9 F 67 16 124/62 97 01/13/22 08:24 98.0 F 70 14 133/68 97 01/13/22 04:00 98.1 F 66 12 133/60 96 01/12/22 23:25 99.6 F 76 12 136/61 95 01/12/22 20:00 97.3 F L 73 12 124/60 96 01/12/22 18:59 74 01/12/22 18:27 98.0 F 158 H 18 122/72 97 01/12/22 17:58 98.2 F 101 H 16 120/81 95 01/12/22 17:54 101 H 16 120/81 95 01/12/22 16:52 151 H 137/84 01/12/22 16:01 121 H 137/94 01/12/22 15:42 141 H 20 162/80 98 Intake and Output 01/13/22 01/13/22 01/13/22 06:59 14:59 22:59 Intake Total 98.833 118 Balance 98.833 118 Intake: Intake, IV Titration 98.833 Amount Diltiazem 125 mg In 98.833 Sodium Chloride 0.9% 100 ml @ 5 MG/HR 5 mls/hr IV .Q24H [facility] Rx#:[id number] Oral 118 Other: Voiding Method Toilet Toilet # Voids 2 1 Physical Exam: Revealed 76-year-old female in no distress. Head: Atraumatic, normocephalic. HEENT:[Neck is supple.] [No neck masses.] [No thyromegaly.] [No JVD.] Chest: Scattered rhonchi noted bilaterally more so on forced expiratory maneuver. Cardiac Exam: [Normal S1 and S2, no S3 gallop, no murmur.] Abdomen: [Soft, nontender, no megaly, no rebound, no guarding, normal bowel sounds.] Extremities: [No clubbing, no edema, no cyanosis.] Neurological Exam: [No focal neurologic deficit.] Alert and oriented 3, no gross focal deficit Psychiatric: Normal mood affect and normal mental status examination. Neurologic: Alert oriented 3 no gross focal deficits. Skin: No rashes. Results - Laboratory Findings CBC and BMP: 01/12/22 15:03 01/13/22 10:30 PT/INR, D-dimer PT 12.4 sec (9.0-12.0) H 01/12/22 15:03 INR 1.2 (<1.2) H 01/12/22 15:03 D-Dimer 4.68 mg/L FEU (<0.60) H 01/12/22 15:03 Abnormal lab findings: Abnormal Labs 01/12/22 01/12/22 01/12/22 15:03 15:03 15:03 PT 12.4 H INR 1.2 H D-Dimer 4.68 H Sodium 136 L Glucose 114 H Alkaline Phosphatase 138 H Troponin I 0.388 H* 01/12/22 01/13/22 18:50 10:30 PT INR D-Dimer Sodium 136 L Glucose Alkaline Phosphatase Troponin I 0.428 H* - Diagnostic Findings CT scan - chest: image reviewed (As noted in HPI) Assessment and Plan Assessment: Advanced bronchogenic carcinoma Ex-smoker patient quit smoking about 18 years ago. Acute exacerbation of COPD Benign essential hypertension History of bariatric surgery/sleeve gastrectomy in 2018. Recommendation: Continue present supportive care measures We will hold the patient's anticoagulation therapy for now, We will arrange for bronchoscopy again next Thursday. Overall prognosis is extremely poor and guarded. Continue bronchodilators. Will follow Time with Patient: Greater than 30
[2022-01-13] MEDS ORDERED: KETOROLAC 15 MG/ML 1 ML VIAL IM ONE (15:31)
--- NOTE | 2022-01-13 15:31 | P.PAINPG ---
Objective - Vital Signs Vital signs: Vital Signs Temp 98.9 F 01/13/22 12:41 Pulse 67 01/13/22 12:41 Resp 16 01/13/22 12:41 BP 124/62 01/13/22 12:41 Pulse Ox 97 01/13/22 12:41 FiO2 Intake & Output 01/12/22 01/13/22 01/13/22 18:59 06:59 18:59 Intake Total 26.167 218.833 118 Balance 26.167 218.833 118 Weight 84.822 kg Intake: Intake, IV Titration 26.167 98.833 Amount Diltiazem 125 mg In 26.167 98.833 Sodium Chloride 0.9% 100 ml @ 5 MG/HR 5 mls/hr IV .Q24H [facility] Rx#:[id number] Oral 0 120 118 Other: Voiding Method Toilet Toilet # Voids 0 2 1 - Labs CBC & Chem 7: 01/12/22 15:03 01/13/22 10:30 Labs: Abnormal Lab Results - Last 24 Hours (Table) 01/12/22 01/12/22 01/12/22 Range/Units 15:03 15:03 15:03 PT 12.4 H (9.0-12.0) sec INR 1.2 H (<1.2) D-Dimer 4.68 H (<0.60) mg/L FEU Sodium 136 L (137-145) mmol/L Glucose 114 H (74-99) mg/dL Alkaline Phosphatase 138 H (38-126) U/L Troponin I 0.388 H* (0.000-0.034) ng/mL 01/12/22 01/13/22 Range/Units 18:50 10:30 PT (9.0-12.0) sec INR (<1.2) D-Dimer (<0.60) mg/L FEU Sodium 136 L (137-145) mmol/L Glucose (74-99) mg/dL Alkaline Phosphatase (38-126) U/L Troponin I 0.428 H* (0.000-0.034) ng/mL PQRS Measure Charge Sheet Comment: HISTORY OF PRESENT ILLNESS: 76 yr old inpatient female as a referral from Dr Aguilar presents today w severe and chronic LBP secondary to DDD, spondylosis and facet arthropathy without myelopathy for evaluation. She is currently admitted for intractable back pain x 1 wk and constipation x 8 days. She is on [place] 5/325mg TID at home. She also has a diagnosis of RUL Lung CA and RUL infiltrates found on CT Angiogram of which she is receiving Zithromax and Rocephin for Pneumonia. Pt states pain level is at 9/10 in intensity for the last few days, constant, localized in the mid to lower lumbar spine, sharp/ achy in character w shooting pain towards the BLEs. Pain is provoked by weight bearing activities. Pain is alleviated slightly by medications, reclining and rest. PMH: HTN, OA, Diverticulitis, L Macular Degeneration, RUL Lung CA PSH: Bariatric Surgery, Cholecystectomy, R Shoulder Surgery, Tubal Ligation, EGD w Colonoscopy, Gastrectomy Sleeve (2018) SH: Never smoker, Hx of daily ETOH use, No illicit drug use. FH: Mo- TIA/ CVA. Fa- ME. All: See list Meds: See list REVIEW OF ORGAN SYSTEMS: CONSTITUTIONAL: No fevers or chills. No recent weight loss. NEUROLOGICAL: + numbness and tingling along the distal extremities. No seizure disorders or headaches. MUSCULOSKELETAL: + pain PSYCHIATRIC: Denies current depression or suicidal thoughts. Physical Examinations : Constitutional : Cooperative , not in acute distress . Neurologic : Cranial nerve II to XII intact. No focal neurological deficits. Psychiatric : alert & oriented x 3. Matching mood & appropriate affect. Judgment & insight intact. Musculoskeletal : Cervical Spine Motor strength in the deltoid and biceps: Normal right side. Normal Left side Motor strength biceps and the wrist extensors: Normal right side . Normal left side Motor strength in the triceps muscle: Normal right side. Normal left side Deep tendon reflexes: Normal at the biceps. Normal at Brachioradialis. Normal at triceps Vertebral body tenderness to deep palpation over Cervical facet loading test: positive bilaterally Spurling test: positive bilaterally Neck distraction test: positive bilaterally Favian sign: positive bilaterally Lumbar spine Motor strength lower extremities ,thigh and legs 5/5 Right side , 5/5 Left side Deep tendon reflexes : Normal Knee Jerk. Normal Ankle Jerk Vertebral body tenderness over L2, L3, L4 Lumbar facet Loading Test: positive Right / positive Left Range of motion of the lumbar spine Flexion 30 degrees, extension 10 degrees Straight Leg Raise test: Left/ Right positive at degree Danii test: positive right / positive left. Severe tenderness over the Sacroiliac joint on the Right / Left sides Gaenslen test: positive bilaterally Seated flexion test: positive bilaterally. Sacral spine : Severe tenderness over the Sacroiliac joint: right side / left side Range of motion: Flexion of the lumbar spine <60 degrees Range of motion: Extension of the lumbar spine <20 degrees Gaenslen's Test positive Ravi's Test positive Danii test: positive right side / left side Thigh Thrust Test Sacral Thrust Test Imaging: MRI without contrast of the lumbar spine reviewed Assessment/ Plan : Lumbar DDD Pt is not a MAHAD candidate due to current antibiotic treatment for RUL Pneumonia. Medication management is ideal at this time. We will continue [place] TID and will add Toradol 2mL/30mg IVP x1. We will assess her pain level, constipation issues and determine additional treatment options if indicated. All questions answered. I have spent greater than 30 minutes on patient care today. Dr Oliver was available by phone for the evaluation of this patient. The time was used to review the medical records including relevant urine studies and Prescription history (MAPs), review of the available imaging, evaluation and examination of the patient, coordination of care with the medical staff and if applicable refe rring physicians, as well as creation of the medical record - Pain Location Back Non-Pharmacological Interventions: Darkened Room, Distraction Pharmacological Interventions: PRN Medication PQRS Narrative: Smoking Status Former smoker Blood Pressure [Right Arm] 124/62 Blood Pressure 120/81 Pain Intensity [Back] 5 Pain Intensity 8 Pain Scale Used Numeric (1 - 10) Scale Used Numeric (1 - 10) Home Medications: Ambulatory Orders amLODIPine [Norvasc] 5 mg PO DAILY 06/27/20 HYDROcodone/APAP 10-325MG [[place] 10-325] 0.5 tab PO TID 12/27/21 Metoprolol Tartrate [Lopressor] 25 mg PO BID #60 tab 12/28/21 Apixaban [Eliquis] 5 mg PO BID #60 tab 12/30/21 Budesonide-Formot 160-4.5 Mcg [Symbicort 160-4.5 Mcg Inhaler] 2 puff INHALATION RT-BID each 12/31/21 Controlled Substance Measures - Controlled Substance Measures Is patient prescribed a controlled substance at discharge?: No
--- NOTE | 2022-01-13 17:06 | P.CONS ---
History of Present Illness - Reason for Consult Consult date: 01/13/22 lung cancer, low back pain Requesting physician: Ronald Steele - Chief Complaint low back / tailbone pain - History of Present Illness The patient is a 76-year-old female diagnosed recently with a right upper lung mass with abnormal mediastinal adenopathy, as well as likely a couple of metastatic nodules in the lung. She has a [id number] smoking history, but did quit nearly 18 years ago. This is suspicious for an underlying lung primary, but initial biopsy attempts were unremarkable. She unfortunately was hospitalized secondary to increasing pain in the low back. The patient's oncologic history began over this past summer, when she reports noticing a tickle in her throat. She states however over the past couple of months she has noticed increased abnormal symptoms. She has had decreased appetite, as well as a 25 pound weight loss in the past 6 weeks. She has also had some intermittent difficulty with cough and dyspnea. Secondary to these symptoms, she underwent a CT scan of the chest on December 19, 2021. This revealed a 5.9 x 3.4 cm right apical lung mass, with enlarged right hilar and mediastinal adenopathy. Note was also made of a 1.8 cm pleural-based nodule. The patient was subsequently hospitalized secondary to increased dyspnea on December 27, 2021. She underwent bronchoscopy on December 30. This revealed some extrinsic compression involving the right upper lung and right middle airways. Unfortunately, biopsies were unremarkable. She subsequently returned to the ER on January 12 secondary to pain in her tailbone. She had been taking [place] as an outpatient, and the pain had become increasingly severe. She was also found to be in atrial fibrillation with rapid response. A CTA of the chest performed on January 12 did not reveal any PE, however the previously noted abnormal areas within the thorax did appear slightly larger. The patient was scheduled for a PET/CT this past weekend, but secondary to technical difficulty she was rescheduled. At this time, the patient reports her pain is approximately 8 out of 10 located in the tailbone. She states this is worse with sitting in certain positions. It may actually improved somewhat with ambulation. She has had no significant benefit from taking [place], despite recently being up to 10 mg tablets. These pain medications have caused her also difficulty with constipation and it has been 9 days since her last bowel movement. Plain film images of the lumbar spine were largely unremarkable. She is scheduled later this afternoon for a CT of the abdomen and pelvis. Review of Systems Constitutional: Reports weight loss, Denies chills, Denies fever Eyes: denies blurred vision Ears, nose, mouth and throat: Denies dysphagia, Denies headache Cardiovascular: Reports dyspnea on exertion, Reports irregular heart beat, Denies chest pain Respiratory: Reports cough, Denies dyspnea, Denies home oxygen Gastrointestinal: Reports constipation, Denies abdominal pain Genitourinary: Denies flank pain Musculoskeletal: Reports as per HPI Integumentary: Denies rash, Denies sores Neurological: Denies aphasia, Denies confusion, Denies paralysis, Denies paresthesias Psychiatric: Denies anxiety, Denies confusion Past Medical History Past Medical History: Eye Disorder, Hypertension, Osteoarthritis (OA) Additional Past Medical History / Comment(s): Hx. of DIVERTICULITIS, LT EYE MAC. DEGEN. HTN resolved after surgery., dysphagia History of Any Multi-Drug Resistant Organisms: None Reported Past Surgical History: Bariatric Surgery, Cholecystectomy, Orthopedic Surgery, Tubal Ligation Additional Past Surgical History / Comment(s): RIGHT SHOULDER SX, COLONOSCOPY, EGD sleeve gastrectomy 02-01-18 Past Anesthesia/Blood Transfusion Reactions: No Reported Reaction Additional Past Anesthesia/Blood Transfusion Reaction / Comm: Pt states that in June [address] Mckeon attempted to perform an EGD with dilation, the procedure had to be cancelled because she experienced a BP "way over 200 when th ey put me under" Past Psychological History: No Psychological Hx Reported Smoking Status: Former smoker (Smoked 1.5 pack/day for 40 years - quit 20 years ago) Past Alcohol Use History: None Reported, Daily Additional Past Alcohol Use History / Comment(s): Quit smoking in 1999. Past Drug Use History: None Reported - Past Family History Mother Family Medical History: CVA/TIA Father Family Medical History: Myocardial Infarction ([place]) Medications and Allergies Home Medications Medication Instructions Recorded Confirmed Type amLODIPine [Norvasc] 5 mg PO DAILY 06/27/20 01/12/22 History HYDROcodone/APAP 10-325MG [[place] 0.5 tab PO TID 12/27/21 01/12/22 History 10-325] Metoprolol Tartrate [Lopressor] 25 mg PO BID #60 tab 12/28/21 01/12/22 Rx Apixaban [Eliquis] 5 mg PO BID #60 tab 12/30/21 01/12/22 Rx Budesonide-Formot 160-4.5 Mcg 2 puff INHALATION RT-BID each 12/31/21 01/12/22 Rx [Symbicort 160-4.5 Mcg Inhaler] Allergies Allergy/AdvReac Type Severity Reaction Status Date / Time Penicillins Allergy Severe Anaphylaxis Verified 01/12/22 16:43 morphine Allergy Rash/Hives Verified 01/12/22 16:43 Physical Exam Vitals: Vital Signs Temp Pulse Pulse Resp BP BP Pulse Ox 01/13/22 12:41 98.9 F 67 16 124/62 97 01/13/22 08:24 98.0 F 70 14 133/68 97 01/13/22 04:00 98.1 F 66 12 133/60 96 01/12/22 23:25 99.6 F 76 12 136/61 95 01/12/22 20:00 97.3 F L 73 12 124/60 96 01/12/22 18:59 74 01/12/22 18:27 98.0 F 158 H 18 122/72 97 01/12/22 17:58 98.2 F 101 H 16 120/81 95 01/12/22 17:54 101 H 16 120/81 95 01/12/22 16:52 151 H 137/84 Intake and Output 01/13/22 01/13/22 01/13/22 06:59 14:59 22:59 Intake Total 98.833 118 Balance 98.833 118 Intake: Intake, IV Titration 98.833 Amount Diltiazem 125 mg In 98.833 Sodium Chloride 0.9% 100 ml @ 5 MG/HR 5 mls/hr IV .Q24H [facility] Rx#:[id number] Oral 118 Other: Voiding Method Toilet Toilet # Voids 2 1 - Constitutional General appearance: no acute distress, obese - EENT Eyes: EOMI, PERRLA ENT: hard of hearing - Neck Neck: no lymphadenopathy - Respiratory Respiratory: right: rales, left: CTA - Cardiovascular Rhythm: regular - Gastrointestinal General gastrointestinal: no tenderness - Integumentary Integumentary: no calor, no cellulitis - Neurologic Neurologic: CNII-XII intact - Musculoskeletal Musculoskeletal: strength equal bilaterally - Psychiatric Psychiatric: A&O x's 3, appropriate affect Results CBC & Chem 7: 01/12/22 15:03 01/13/22 10:30 Labs: Abnormal Lab Results - Last 24 Hours (Table) 01/12/22 01/13/22 Range/Units 18:50 10:30 Sodium 136 L (137-145) mmol/L Troponin I 0.428 H* (0.000-0.034) ng/mL CT scan - chest: report reviewed, image reviewed Assessment and Plan Assessment: The patient is a 76-year-old female diagnosed recently with a right upper lung mass with abnormal mediastinal adenopathy, as well as likely a couple of metastatic nodules in the lung. She has a [id number] smoking history, but did quit nearly 18 years ago. This is suspicious for an underlying lung primary, but initial biopsy attempts were unremarkable. She unfortunately was hospitalized secondary to increasing pain in the low back. Plan: 1. Low back pain: The nature of the pain having increased over the past month is suspicious in the setting of a newly diagnosed lung cancer. CT scan of the abdomen and pelvis is ordered for later this afternoon. If this is unremarkable, would consider MRI of the LS Spine. Spoke with nursing - no decubs noted. If there is metastatic disease, certainly palliative RT would be considered. 2. Lung cancer: Highly suspicious on imaging; unfortunately her PET-CT was delayed this past Thursday due to technical issues. Will discuss with pul monology, worth repeat biopsy (EBUS?) vs possible biopsy of another site depending on work-up. Also - will need MRI brain despite lack of symptoms at si time. Time: I spent 45 minutes with this patient, of which greater than 50% of that time was spent counseling, coordinating care, and reviewing the risks, benefits, and all potential complications of radiation. I appreciate the opportunity to participate in the care of this patient. Time with Patient: Greater than 30
--- NOTE | 2022-01-13 17:34 | CT ---
EXAMINATION TYPE: CT abdomen pelvis w con CT DLP: 1291.2 mGycm, Automated exposure control for dose reduction was used. DATE OF EXAM: 01/13/2022 4:58 PM COMPARISON: CT chest 01/12/2022, CT abdomen pelvis 02/04/2018. CLINICAL INDICATION:Female, 76 years old with history of Lower back, pelvic pain. Lung mass; Lower ba ck and pelvic pain TECHNIQUE: Axial CT of the abdomen and pelvis. Sagittal and coronal reformats were created on a [id number] workstation. Contrast used:100cc mL of Isovue 300 with IV Contrast, Oral contrast used: without Oral Contrast FINDINGS: LOWER CHEST: Partially visualized consolidation changes most pronounced in the middle lobe and right lower lobe, no significant change from one day prior. Trace right pleural effusion. ABDOMEN LIVER: Unremarkable GALLBLADDER AND BILE DUCTS: The gallbladder is surgically absent. PANCREAS: Unremarkable. SPLEEN: Three indeterminate lesions are seen within the spleen measuring up to measuring up to 19 mm and 45 Hounsfield units. ADRENAL GLANDS: Unremarkable. KIDNEYS AND URETERS: No evidence of hydronephrosis or renal calculus. The ureters are unremarkable. PELVIS BLADDER: Unremarkable REPRODUCTIVE: Unremarkable. ABDOMEN & PELVIS STOMACH AND BOWEL: No evidence of bowel obstruction. High-density ingested oral contrast within the e sophagus with asymmetric wall thickening of the distal esophagus. There is postsurgical changes to th e stomach. Colonic diverticula present. PERITONEUM: No evidence of pneumoperitoneum or free fluid. VASCULATURE: No evidence of aortic aneurysm. Atherosclerosis of the arterial vasculature. MUSCULOSKELETAL: L5 vertebrae has a moth-eaten appearance with destruction of the inferior and left p osterior endplates this is best appreciated on lateral imaging. Soft tissue is seen at the posterior aspect of L5 is likely at least mildly narrowing the spinal canal. There is approximately 25% height loss posteriorly at L5. Additionally a S2 there is a destructive cortical irregularity to the sacrum. Cortical irregularity. LYMPH NODES: No gross evidence for lymphadenopathy. SOFT TISSUE/ABDOMINAL WALL: Small fat-containing umbilical hernia. IMPRESSION: 1. L5 vertebral body and S2 vertebrae osseous destructive changes suspicious for underlying patholog ic fractures. There suspected at least mild spinal canal stenosis at L5 which is suboptimally evaluat ed. MRI lumbar spine and sacrum with IV contrast is recommended for further evaluation. 2. Indeterminate splenic lesions could represent metastatic disease from known pulmonary masses. The se are not definitively seen on noncontrast exam on 02/12/2018. 3. Similar consolidation changes right lower lobe
--- NOTE | 2022-01-13 19:08 | P.HPIM ---
History of Present Illness H&P Date: 01/13/22 Gracie Ybarra, is a 76 year-old female who presented to [facility] with a chief complaint of low back pain, and constipation, patient was recently diagnosed with lung cancer she was also diagnosed with atrial fibrillation recently, she is followed by pulmonary and cardiology as outpa tient. Patient was evaluated in the emergency room CT angiogram of the chest revealed no evidence of pulmonary embolism however she had multiple abnormalities consistent with tumor with cavitating mass in the right lower lobe and also left side paraspinal mass, she was admitted to medical floor, consultation for pulmonary, and pain management was initiated. On review of system patient is alert and oriented 3 in no apparent distress she is complaining of low back pain otherwise she denies any complaints there is no fever or chills no headache or dizziness no chest pain no shortness of breath no cough no nausea or vomiting no diarrhea stools no burning with urination no frequency or urgency no hematuria Past Medical History Past Medical History: Eye Disorder, Hypertension, Osteoarthritis (OA) Additional Past Medical History / Comment(s): Hx. of DIVERTICULITIS, LT EYE MAC. DEGEN. HTN resolved after surgery., dysphagia History of Any Multi-Drug Resistant Organisms: None Reported Past Surgical History: Bariatric Surgery, Cholecystectomy, Orthopedic Surgery, Tubal Ligation Additional Past Surgical History / Comment(s): RIGHT SHOULDER SX, COLONOSCOPY, EGD sleeve gastrectomy 02-01-18 Past Anesthesia/Blood Transfusion Reactions: No Reported Reaction Additional Past Anesthesia/Blood Transfusion Reaction / Comment(s): Pt states that in June [address] Mckeon attempted to perform an EGD with dilation, the procedure had to be cancelled because she experienced a BP "way over 200 when they put me under" Past Psychological History: No Psychological Hx Reported Smoking Status: Never smoker Past Alcohol Use History: Daily Additional Past Alcohol Use History / Comment(s): Quit smoking in 1999. Past Drug Use History: None Reported - Past Family History Mother Family Medical History: CVA/TIA Father Family Medical History: Myocardial Infarction ([place]) Medications and Allergies Home Medications Medication Instructions Recorded Confirmed Type amLODIPine [Norvasc] 5 mg PO DAILY 06/27/20 01/12/22 History HYDROcodone/APAP 10-325MG [[place] 0.5 tab PO TID 12/27/21 01/12/22 History 10-325] Metoprolol Tartrate [Lopressor] 25 mg PO BID #60 tab 12/28/21 01/12/22 Rx Apixaban [Eliquis] 5 mg PO BID #60 tab 12/30/21 01/12/22 Rx Budesonide-Formot 160-4.5 Mcg 2 puff INHALATION RT-BID each 12/31/21 01/12/22 Rx [Symbicort 160-4.5 Mcg Inhaler] Allergies Allergy/AdvReac Type Severity Reaction Status Date / Time Penicillins Allergy Severe Anaphylaxis Verified 01/12/22 16:43 morphine Allergy Rash/Hives Verified 01/12/22 16:43 Physical Exam Vitals: Vital Signs Temp Pulse Pulse Resp BP BP Pulse Ox 01/13/22 08:24 98.0 F 70 14 133/68 97 01/13/22 04:00 98.1 F 66 12 133/60 96 01/12/22 23:25 99.6 F 76 12 136/61 95 01/12/22 20:00 97.3 F L 73 12 124/60 96 01/12/22 18:59 74 01/12/22 18:27 98.0 F 158 H 18 122/72 97 01/12/22 17:58 98.2 F 101 H 16 120/81 95 01/12/22 17:54 101 H 16 120/81 95 01/12/22 16:52 151 H 137/84 01/12/22 16:01 121 H 137/94 01/12/22 15:42 141 H 20 162/80 98 01/12/22 14:17 98.2 F 168 H 16 145/70 96 Intake and Output 01/12/22 01/13/22 01/13/22 22:59 06:59 14:59 Intake Total 146.167 98.833 118 Balance 146.167 98.833 118 Intake: Intake, IV Titration 26.167 98.833 Amount Diltiazem 125 mg In 26.167 98.833 Sodium Chloride 0.9% 100 ml @ 5 MG/HR 5 mls/hr IV .Q24H [facility] Rx#:[id number] Oral 120 118 Other: Voiding Method Toilet Toilet # Voids 2 2 1 Weight 84.822 kg In general patient is alert and oriented x 3 in no distress HEENT head normocephalic and atraumatic Neck is supple no JVD no goiter no lymphadenopathy no carotid bruit Chest examination is clear to auscultation no crackles no wheezing Cardiac exam reveals regular heart sounds S1 and S2 no gallops no murmurs Abdomen is soft nontender no organomegaly with normal bowel sounds Extremity exam reveals no edema no cyanosis or clubbing Neurological examination reveals no gross focal deficits Results CBC & Chem 7: 01/12/22 15:03 01/13/22 10:30 Labs: Abnormal Lab Results - Last 24 Hours (Table) 01/12/22 01/12/22 01/12/22 Range/Units 15:03 15:03 15:03 PT 12.4 H (9.0-12.0) sec INR 1.2 H (<1.2) D-Dimer 4.68 H (<0.60) mg/L FEU Sodium 136 L (137-145) mmol/L Glucose 114 H (74-99) mg/dL Alkaline Phosphatase 138 H (38-126) U/L Troponin I 0.388 H* (0.000-0.034) ng/mL 01/12/22 Range/Units 18:50 PT (9.0-12.0) sec INR (<1.2) D-Dimer (<0.60) mg/L FEU Sodium (137-145) mmol/L Glucose (74-99) mg/dL Alkaline Phosphatase (38-126) U/L Troponin I 0.428 H* (0.000-0.034) ng/mL Thrombosis Risk Factor Assmnt - Choose All That Apply Each Factor Represents 1 point: Obesity (BMI >25) Each Risk Factor Represents 3 Points: Age 75 years or older Thrombosis Risk Factor Assessment Total Risk Factor Score: 4 Thrombosis Risk Factor Assessment Level: Moderate Risk Assessment and Plan Plan: Intractable back pain Constipation likely related to the use of hydrocodone Recent diagnosis of lung cancer Recent diagnosis of atrial fibrillation Underlying history of hypertension Underlying history of degenerative disc disease At this time patient is admitted to medical floor, Home medications reviewed and reordered Pulmonary cardiology and pain management services were consulted Will follow closely
--- NOTE | 2022-01-13 22:53 | P.CONS ---
History of Present Illness - Reason for Consult Consult date: 01/13/22 Lung mass, Intractable pain. - History of Present Illness This is a 76-year-old white female, recently seen in consult earlier this month. The consult was placed because a finding of a suspicious right upper lobe mass. The patient had been admitted with shortness of breath, and cough which had not responded to outpatient treatment for pneumonia, with subsequent imaging confirming the presence of the mass. The patient had a bronchoscopy and was then discharged with plan for additional outpatient staging studies, i ncluding PET scan and brain MRI. Unfortunately biopsy from the bronchoscopy came back nondiagnostic. The patient was supposed to get an outpatient PET scan on 01/10/22, but was unable to do so as the machine was down due to technical problems The patient was admitted because of increasing pain in the sacral area. She states that this started about 4-5 weeks ago, but has gotten significantly worse si She was prescribed pain medications for the same, which then caused constipation several days leading to this admission. The patient had a CTA because of elevated d-dimer, showing increase in size of the right upper lobe mass, as well as progression of a left paraspinal mass. Consult was placed for further evaluation and recommendations. KUB Xray revealed nonacute abdomen, possible new RLL pneumonia Review of Systems Constitutional: Reports chronic pain, Reports weight loss (25 pounds over the past 2-3 months) Eyes: denies blurred vision, denies pain Ears: deny: decreased hearing, ear discharge, earache, tinnitus Ears, nose, mouth and throat: Denies headache, Denies sore throat Cardiovascular: Reports decreased exercise tolerance Respiratory: Reports dyspnea Gastrointestinal: Reports constipation Genitourinary: Reports difficulty voiding Menstruation: Reports postmenopausal Musculoskeletal: Reports as per HPI Integumentary: Denies pruritus, Denies rash Neurological: Reports weakness Psychiatric: Denies anxiety, Denies depression Endocrine: Reports fatigue, Reports weight change Hematologic/Lymphatic: Reports as per HPI Past Medical History Past Medical History: Eye Disorder, Hypertension, Osteoarthritis (OA) Additional Past Medical History / Comment(s): Hx. of DIVERTICULITIS, LT EYE MAC. DEGEN. HTN resolved after surgery., dysphagia History of Any Multi-Drug Resistant Organisms: None Reported Past Surgical History: Bariatric Surgery, Cholecystectomy, Orthopedic Surgery, Tubal Ligation Additional Past Surgical History / Comment(s): RIGHT SHOULDER SX, COLONOSCOPY, EGD sleeve gastrectomy 02-01-18 Past Anesthesia/Blood Transfusion Reactions: No Reported Reaction Additional Past Anesthesia/Blood Transfusion Reaction / Comm: Pt states that in June [address] Mckeon attempted to perform an EGD with dilation, the procedure had to be cancelled because she experienced a BP "way over 200 when they put me under" Past Psychological History: No Psychological Hx Reported Smoking Status: Never smoker Past Alcohol Use History: Daily Additional Past Alcohol Use History / Comment(s): Quit smoking in 1999. Past Drug Use History: None Reported - Past Family History Mother Family Medical History: CVA/TIA Father Family Medical History: Myocardial Infarction ([place]) Medications and Allergies Home Medications Medication Instructions Recorded Confirmed Type amLODIPine [Norvasc] 5 mg PO DAILY 06/27/20 01/12/22 History HYDROcodone/APAP 10-325MG [[place] 0.5 tab PO TID 12/27/21 01/12/22 History 10-325] Metoprolol Tartrate [Lopressor] 25 mg PO BID #60 tab 12/28/21 01/12/22 Rx Apixaban [Eliquis] 5 mg PO BID #60 tab 12/30/21 01/12/22 Rx Budesonide-Formot 160-4.5 Mcg 2 puff INHALATION RT-BID each 12/31/21 01/12/22 Rx [Symbicort 160-4.5 Mcg Inhaler] Allergies Allergy/AdvReac Type Severity Reaction Status Date / Time Penicillins Allergy Severe Anaphylaxis Verified 01/12/22 16:43 morphine Allergy Rash/Hives Verified 01/12/22 16:43 Physical Exam Vitals: Vital Signs Temp Pulse Pulse Resp BP BP Pulse Ox 01/13/22 08:24 98.0 F 70 14 133/68 97 01/13/22 04:00 98.1 F 66 12 133/60 96 01/12/22 23:25 99.6 F 76 12 136/61 95 01/12/22 20:00 97.3 F L 73 12 124/60 96 01/12/22 18:59 74 01/12/22 18:27 98.0 F 158 H 18 122/72 97 01/12/22 17:58 98.2 F 101 H 16 120/81 95 01/12/22 17:54 101 H 16 120/81 95 01/12/22 16:52 151 H 137/84 01/12/22 16:01 121 H 137/94 01/12/22 15:42 141 H 20 162/80 98 01/12/22 14:17 98.2 F 168 H 16 145/70 96 Intake and Output 01/12/22 01/13/22 01/13/22 22:59 06:59 14:59 Intake Total 146.167 98.833 118 Balance 146.167 98.833 118 Intake: Intake, IV Titration 26.167 98.833 Amount Diltiazem 125 mg In 26.167 98.833 Sodium Chloride 0.9% 100 ml @ 5 MG/HR 5 mls/hr IV .Q24H [facility] Rx#:[id number] Oral 120 118 Other: Voiding Method Toilet Toilet # Voids 2 2 1 Weight 84.822 kg - Constitutional General appearance: no acute distress - EENT Eyes: EOMI, PERRLA ENT: hearing grossly normal, normal oropharynx - Neck Neck: no lymphadenopathy Thyroid: bilateral: normal size - Respiratory Respiratory: bilateral: CTA - Cardiovascular Rhythm: regular Heart sounds: normal: S1, S2 - Gastrointestinal General gastrointestinal: normal bowel sounds, soft - Integumentary Integumentary: normal - Musculoskeletal No tenderness on direct palpation over the sacrum Musculoskeletal: generalized weakness, strength equal bilaterally - Psychiatric Psychiatric: A&O x's 3, appropriate affect Results CBC & Chem 7: 01/12/22 15:03 01/13/22 10:30 Labs: Abnormal Lab Results - Last 24 Hours (Table) 01/12/22 01/12/22 01/12/22 Range/Units 15:03 15:03 15:03 PT 12.4 H (9.0-12.0) sec INR 1.2 H (<1.2) D-Dimer 4.68 H (<0.60) mg/L FEU Sodium 136 L (137-145) mmol/L Glucose 114 H (74-99) mg/dL Alkaline Phosphatase 138 H (38-126) U/L Troponin I 0.388 H* (0.000-0.034) ng/mL 01/12/22 Range/Units 18:50 PT (9.0-12.0) sec INR (<1.2) D-Dimer (<0.60) mg/L FEU Sodium (137-145) mmol/L Glucose (74-99) mg/dL Alkaline Phosphatase (38-126) U/L Troponin I 0.428 H* (0.000-0.034) ng/mL Comments: EKG image reviewed Abdominal x-ray: report reviewed CT scan - chest: report reviewed Assessment and Plan (1) Intractable low back pain Narrative/Plan: This is presumably neoplasm related. She has not had any imaging of this area yet ( PET was unable to be done). No tenderness was noted on direct palpation. Check CT AP. Consult Rad Onc for palliative RT assuming a traget lesion is located. - Pain Service on consult for medical pain management Current Visit: Yes Status: Acute Code(s): M54.59 - OTHER LOW BACK PAIN SNOMED Code(s): 95737571592404186 (2) Lung cancer Narrative/Plan: The pt's biopsy was non diagnostic. D/W Pulmonary for repeat biopsy for tissue diagnosis Current Visit: Yes Status: Acute Code(s): C34.90 - MALIGNANT NEOPLASM OF UNSP PART OF UNSP BRONCHUS OR LUNG SNOMED Code(s): 342320985
[2022-01-14] MEDS ORDERED: DILTIAZEM 125 MG in SODIUM CHLORIDE 0.9% 100 ML IV SCH (01:24)
[2022-01-14] MEDS: HYDROcodone/APAP 10-325MG 1 EACH TAB PO PRN ×4 (01:36→20:00)
[2022-01-14] MEDS: HYDROmorphone 0.5 MG/0.5 ML SYRINGE IVP PRN ×3 (06:40→22:28)
[2022-01-14] MEDS: SYMBICORT 160-4.5 MCG INHALER INHALATION SCH ×2 (07:20→22:18)
[2022-01-14] MEDS: METOPROLOL TARTRATE 25 MG TAB PO SCH ×2 (08:32→20:00)
[2022-01-14] MEDS: PANTOPRAZOLE 40 MG/10 ML VIAL IV SCH (08:32)
[2022-01-14] MEDS: amLODIPine 5 MG TAB PO SCH (08:32)
[2022-01-14 09:06] LABS: ALT 19 U/L (4-34); AST 36 U/L (14-36); African American GFR (CKD) >90 (>60 ml/min/1.73 sqM); Albumin 3.8 g/dL (3.5-5.0); Alkaline Phosphatase 144 U/L (38-126); Anion Gap 13 mmol/L; Blood Urea Nitrogen 17 mg/dL (7-17); Calcium 8.8 mg/dL (8.4-10.2); Carbon Dioxide 24 mmol/L (22-30); Chloride 102 mmol/L (98-107); Glucose 100 mg/dL (74-99); Non-African American GFR(CKD) 88 (>60 ml/min/1.73 sqM); Potassium 4.5 mmol/L (3.5-5.1); Sodium 139 mmol/L (137-145); Total Bilirubin 0.7 mg/dL (0.2-1.3); Total Protein 6.9 g/dL (6.3-8.2)
[2022-01-14 09:37] LABS: Basophils % (A) 0 %; Eosinophils # (A) 0.3 k/uL (0-0.7); Eosinophils % (A) 4 %; HCT 38.3 % (34.0-46.0); HGB 12.5 gm/dL (11.4-16.0); Hypochromasia Slight; Lymphocytes # (A) 0.7 k/uL (1.0-4.8); Lymphocytes % (A) 9 %; MCH 28.6 pg (25.0-35.0); MCHC 32.7 g/dL (31.0-37.0); MCV 87.6 fL (80.0-100.0); Monocytes # (A) 0.4 k/uL (0-1.0); Monocytes % (A) 6 %; Neutrophils # (A) 6.2 k/uL (1.3-7.7); Neutrophils % (A) 80 %; Platelet Count 164 k/uL (150-450); RBC 4.38 m/uL (3.80-5.40); RDW 13.1 % (11.5-15.5); WBC 7.7 k/uL (3.8-10.6)
[2022-01-14] MEDS: SODIUM CHLORIDE 0.9% 1,000 ML IV SCH ×2 (10:46→22:29)
--- NOTE | 2022-01-14 11:05 | CA ---
Transthoracic Echo Report Name: Gracie Ybarra Age: 76 Gender: F : 1945 Exam Date: 01/14/2022 10:02 Exam Location: [place] Echo Ht (in): 64 Wt (lb): 187 Ordering Physician: Stewart Partida MD ([id number]) Attending/Referring Phys: Mukesh Rocha MD Instructor [employer] Erica Meredith, NAREN Procedure CPT: Indications: LV function Cardiac Hx: Technical Quality: Good Contrast 1: Total Dose (mL): Contrast 2: Total Dose (mL): MEASUREMENTS (Male / Female) Normal Values 2D ECHO LV Diastolic Diameter PLAX 4.1 cm 4.2 - 5.9 / 3.9 - 5.3 cm LV Systolic Diameter PLAX 3.2 cm IVS Diastolic Thickness 1.5 cm 0.6 - 1.0 / 0.6 - 0.9 cm LVPW Diastolic Thickness 1.4 cm 0.6 - 1.0 / 0.6 - 0.9 cm LV Relative Wall Thickness 0.7 RV Internal Dim ED PLAX 3.4 cm LA Systolic Diameter LX 4.1 cm 3.0 - 4.0 / 2.7 - 3.8 cm LV Diastolic Volume MOD 4C 92.3 cm??? LV Systolic Volume MOD 4C 41.3 cm??? LV Ejection Fraction MOD 4C 55.3 % LV Diastolic Length 4C 8.2 cm LV Systolic Length 4C 6.2 cm LV Diastolic Volume MOD 2C 81.7 cm??? LV Systolic Volume MOD 2C 50.2 cm??? LV Ejection Fraction MOD 2C 38.5 % LV Diastolic Length 2C 8.0 cm LV Systolic Length 2C 6.9 cm LA Volume 61.6 cm??? 18 - 58 / 22 - 52 cm??? M-MODE Aortic Root Diameter MM 3.2 cm MV E Point Septal Separation 0.4 cm AV Cusp Separation MM 1.8 cm DOPPLER AV Peak Velocity 170.2 cm/s AV Peak Gradient 11.6 mmHg AI Peak Velocity 441.8 cm/s AI Peak Gradient 78.1 mmHg AI Pressure Half Time 454.7 ms MV Area PHT 4.1 cm??? Mitral E Point Velocity 116.0 cm/s Mitral A Point Velocity 108.4 cm/s Mitral E to A Ratio 1.1 MV Deceleration Time 183.9 ms TR Peak Velocity 297.7 cm/s TR Peak Gradient 35.5 mmHg Right Ventricular Systolic Press 40.2 mmHg FINDINGS Left Ventricle Left ventricular ejection fraction is estimated at 55 %. Left ventricular cavity size normal. Moderate concentric left ventricular hypertrophy. Right Ventricle Mild right ventricular dilatation. Mild pulmonary hypertension. Right Atrium Normal right atrial size. Left Atrium Mildly increased left atrial diameter. Mildly increased left atrial volume. Mildly increased left atrial area. No evidence for an atrial septal defect. Mitral Valve Mitral valve thickened. Mitral annular calcification. Mild mitral regurgitation. Aortic Valve Trileaflet aortic valve. [id number] aortic regurgitation. Tricuspid Valve Structurally normal tricuspid valve. Moderate tricuspid regurgitation. Pulmonic Valve Structurally normal pulmonic valve. Mild pulmonic regurgitation. Pericardium Normal pericardium. No pericardial effusion. Aorta Normal size aortic root and proximal ascending aorta. CONCLUSIONS Normal LV size and systolic function with moderate concentric LVH. Mild right ventricular enlargement. Moderate aortic regurgitation. Mild mitral and mild to moderate tricuspid regurgitation. No significant pulmonary hypertension. No pericardial effusion Previewed by: Dr. Damian Celis MD (Electronically Signed) Final Date: 14 January 2022 11:04
--- NOTE | 2022-01-14 14:32 | P.PN ---
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 This is a 76-year-old female with history of multiple medical problems, patient was seen on consultation back on 12/27/21, and she was felt to have bronchogenic carcinoma. She was seen by Dr. logan performed bronchoscopy, mccallum needle aspirations, endobronchial biopsies, however the pathology came back nondiagnostic. Patient was eventually discharged home after her bronchoscopy and she was supposed to follow-up with me on outpatient basis. Patient was supposed to have a PET scan on outpatient basis also. And neither one of those was done. Patient came to the ER this morning complaining of generalized symptoms of weakness, low back pain, and constipation. Repeat CT of the chest showed multiple abnormalities consistent with bronchogenic carcinoma including a cavitating mass in the right lower lobe, left side paraspinal mass which has increased in size compared to a few weeks ago, and there is also a right upper lobe mass/consolidation which is also increased in size compared to the previous exam. All the findings are pointing to worsening bronchogenic carcinoma. X- rays of lumbar spine showed moderate multilevel disc degeneration. CBC is relatively normal electrolytes are normal, d-dimer is 4.68. Electrolytes and renal profile are normal Reevaluated today on 01/14/22, patient continues to have severe back pain, CT of the abdomen and pelvis today the possibility of metastatic disease to the lumbosacral spine. Patient was seen by oncology, and we discussed over the phone with the oncologist, patient will definitely need a tissue diagnosis, I w as planning to have a repeat bronchoscopy on this patient, but now considering the findings on the lumbar spine, I believe the patient will have a better chance of diagnoses having lumbar biopsy, and in case if it's positive the patient may even need radiation treatment. She will also need MRI of the lumbosacral spine. Pulmonary-[facility] the patient does not have much symptoms except occasional cough and wheezing, but her symptoms seemed to be mostly related to her low back pain and weakness in the legs. CBC today is unremarkable, basic metabolic profile is also unremarkable. Calcium is normal. Objective - Vital Signs Vital signs: Vital Signs Temp 97.9 F 01/14/22 12:17 Pulse 68 01/14/22 12:17 Resp 18 01/14/22 12:17 BP 140/74 01/14/22 12:17 Pulse Ox 97 01/14/22 12:17 FiO2 Intake & Output 01/13/22 01/14/22 01/14/22 18:59 06:59 18:59 Intake Total 118 118 240 Balance 118 118 240 Intake: Oral 118 118 240 Other: Voiding Method Toilet Toilet Toilet # Voids 3 4 1 - Exam Physical Exam: Revealed 76-year-old female in no distress. Head: Atraumatic, normocephalic. HEENT:[Neck is supple.] [No neck masses.] [No thyromegaly.] [No JVD.] Chest: Scattered rhonchi noted bilaterally more so on forced expiratory maneuver. Cardiac Exam: [Normal S1 and S2, no S3 gallop, no murmur.] Abdomen: [Soft, nontender, no megaly, no rebound, no guarding, normal bowel sounds.] Extremities: [No clubbing, no edema, no cyanosis.] Neurological Exam: [No focal neurologic deficit.] Alert and oriented 3, no gross focal deficit Psychiatric: Normal mood affect and normal mental status examination. Neurologic: Alert oriented 3 no gross focal deficits. Skin: No rashes. 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 Ex-smoker patient quit smoking about 18 years ago. Acute exacerbation of COPD Benign essential hypertension History of bariatric surgery/sleeve gastrectomy in 2018. Recommendation: Discussed with the patient and with Dr. Steele that diagnostic studies, we can definitely always repeat bronchoscopy, but I think a better yield will be going for a lumbar biopsy by interventional radiology. In case this is positive, the patient will need radiation treatment to the back. Her main symptom seems to be mostly related to metastatic disease to the lumbar spine. And I believe both could make a tissue diagnosis and the patient could have radiation treatment. Continue present supportive care measures We will hold the patient's anticoagulation therapy for now, Plan interventional radiology biopsy of the lumbosacral spine. Cancel bronchoscopy for now. Prognosis is extremely poor and guarded. Continue bronchodilators. Will follow Time with Patient: Less than 30
--- NOTE | 2022-01-14 17:12 | P.PN ---
Subjective Progress Note Date: 01/14/22 Gracie Ybarra, is a 76 year-old female who presented to [facility] with a chief complaint of low back pain, and constipation, patient was recently diagnosed with lung cancer she was also diagnosed with atrial fibrillation recently, she is followed by pulmonary and cardiology as outpatient. Patient was evaluated in the emergency room CT angiogram of the chest revealed no evidence of pulmonary embolism however she had multiple abnormalities consistent with tumor with cavitating mass in the right lower lobe and also left side paraspinal mass, she was admitted to medical floor, consultation for pulmonary, and pain management was initiated. On review of system patient is alert and oriented 3 in no apparent distress she is complaining of low back pain otherwise she denies any complaints there is no fever or chills no headache or dizziness no chest pain no shortness of breath no cough no nausea or vomiting no diarrhea stools no burning with urination no frequency or urgency no hematuria On 01/14/2022 patient was seen and examined on the medical floor she is complaining of low back pain, she is also complaining of cough and mild shortness of breath otherwise she denies any complaints there is no fever or chills no headache or dizziness no chest pain no nausea or vomiting no abdominal pain no diarrhea and no urinary symptoms, input from pulmonary and oncology reviewed, awaiting tissue diagnosis, will follow closely Objective - Vital Signs Vital signs: Vital Signs Temp 98.1 F 01/14/22 04:00 Pulse 80 01/14/22 04:00 Resp 12 01/14/22 04:00 BP 148/62 01/14/22 04:00 Pulse Ox 99 01/14/22 04:00 FiO2 Intake & Output 01/13/22 01/14/22 01/14/22 18:59 06:59 18:59 Intake Total 118 118 Balance 118 118 Intake: Oral 118 118 Other: Voiding Method Toilet Toilet # Voids 3 4 - Exam In general patient is alert and oriented x 3 in no distress HEENT head normocephalic and atraumatic Neck is supple no JVD no goiter no lymphadenopathy no carotid bruit Chest examination is clear to auscultation no crackles no wheezing Cardiac exam reveals regular heart sounds S1 and S2 no gallops no murmurs Abdomen is soft nontender no organomegaly with normal bowel sounds Extremity exam reveals no edema no cyanosis or clubbing Neurological examination reveals no gross focal deficits - Labs CBC & Chem 7: 01/14/22 08:10 01/14/22 08:10 Labs: Abnormal Lab Results - Last 24 Hours (Table) 01/13/22 Range/Units 10:30 Sodium 136 L (137-145) mmol/L Microbiology - Last 24 Hours (Table) 01/12/22 18:00 Blood Culture - Preliminary Blood No Growth after 24 hours 01/12/22 17:45 Blood Culture - Preliminary Blood No Growth after 24 hours Assessment and Plan Plan: Intractable back pain Constipation likely related to the use of hydrocodone Recent diagnosis of lung cancer Recent diagnosis of atrial fibrillation Underlying history of hypertension Underlying history of degenerative disc disease At this time patient is admitted to medical floor, Home medications reviewed and reordered Pulmonary cardiology and pain management services were consulted Will follow closely
--- NOTE | 2022-01-14 23:37 | PN ---
PROGRESS NOTE HISTORY OF PRESENT ILLNESS: A 76-year-old lady admitted with atrial fibrillation with rapid ventricular rate. She is feeling better. Denies any cardiac symptoms. Echocardiogram showed normal LV systolic function, concentric left ventricular hypertrophy with moderate aortic regurgitation. PHYSICAL EXAMINATION: GENERAL: Comfortable at rest. VITAL SIGNS: Heart rate is 90 beats per minute. Blood pressure is 126/70, respiratory rate is 18. CHEST: Reveals good air entry bilaterally. HEART: Reveals first and second heart sounds and early diastolic murmur in the aortic area. ABDOMEN: Soft. EXTREMITIES: Did not reveal any edema. Peripheral pulses are felt. ASSESSMENT: Persistent atrial fibrillation with poorly controlled ventricular rate. PLAN: I will continue the patient on Cardizem and Eliquis. MMODL / IJN: [id number] /
[2022-01-15] MEDS: HYDROcodone/APAP 10-325MG 1 EACH TAB PO PRN ×3 (02:06→16:12)
[2022-01-15] MEDS: HYDROmorphone 0.5 MG/0.5 ML SYRINGE IVP PRN ×6 (02:43→23:39)
[2022-01-15] MEDS: SYMBICORT 160-4.5 MCG INHALER INHALATION SCH ×2 (07:53→21:13)
[2022-01-15] MEDS: PANTOPRAZOLE 40 MG/10 ML VIAL IV SCH (09:11)
[2022-01-15] MEDS: METOPROLOL TARTRATE 25 MG TAB PO SCH ×2 (09:11→21:15)
[2022-01-15] MEDS: amLODIPine 5 MG TAB PO SCH (09:11)
--- NOTE | 2022-01-15 09:37 | P.PN ---
Subjective Progress Note Date: 01/15/22 Gracie Ybarra, is a 76 year-old female who presented to [facility] with a chief complaint of low back pain, and constipation, patient was recently diagnosed with lung cancer she was also diagnosed with atrial fibrillation recently, she is followed by pulmonary and cardiology as outpatient. Patient was evaluated in the emergency room CT angiogram of the chest revealed no evidence of pulmonary embolism however she had multiple abnormalities consistent with tumor with cavitating mass in the right lower lobe and also left side paraspinal mass, she was admitted to medical floor, consultation for pulmonary, and pain management was initiated. On review of system patient is alert and oriented 3 in no apparent distress she is complaining of low back pain otherwise she denies any complaints there is no fever or chills no headache or dizziness no chest pain no shortness of breath no cough no nausea or vomiting no diarrhea stools no burning with urination no frequency or urgency no hematuria On 01/14/2022 patient was seen and examined on the medical floor she is complaining of low back pain, she is also complaining of cough and mild shortness of breath otherwise she denies any complaints there is no fever or chills no headache or dizziness no chest pain no nausea or vomiting no abdominal pain no diarrhea and no urinary symptoms, input from pulmonary and oncology reviewed, awaiting tissue diagnosis, will follow closely On 01/15/2022 patient is alert and oriented 3. Patient still complaining of lower back discomfort. Plans for CT-guided biopsy of the lumbar spine today. Patient denies chest pain or shortness breath. Patient denies nausea vomiting diarrhea. Patient denies Objective - Vital Signs Vital signs: Vital Signs Temp 98.0 F 01/15/22 04:00 Pulse 72 01/15/22 04:00 Resp 18 01/15/22 04:00 BP 123/72 01/15/22 04:00 Pulse Ox 97 01/15/22 04:00 FiO2 Intake & Output 01/14/22 01/15/22 01/15/22 18:59 06:59 18:59 Intake Total 476 Balance 476 Intake: Oral 476 Other: Voiding Method Toilet Toilet # Voids 2 1 - Exam In general patient is alert and oriented x 3 in no distress HEENT head normocephalic and atraumatic Neck is supple no JVD no goiter no lymphadenopathy no carotid bruit Chest examination is clear to auscultation no crackles no wheezing Cardiac exam reveals regular heart sounds S1 and S2 no gallops no murmurs Abdomen is soft nontender no organomegaly with normal bowel sounds Extremity exam reveals no edema no cyanosis or clubbing Neurological examination reveals no gross focal deficits - Labs CBC & Chem 7: 01/14/22 08:10 01/14/22 08:10 Labs: Abnormal Lab Results - Last 24 Hours (Table) 01/14/22 Range/Units 08:10 Lymphocytes # 0.7 L (1.0-4.8) k/uL Microbiology - Last 24 Hours (Table) 01/12/22 18:00 Blood Culture - Preliminary Blood No Growth after 48 hours 01/12/22 17:45 Blood Culture - Preliminary Blood No Growth after 48 hours Assessment and Plan Plan: Intractable back pain Constipation likely related to the use of hydrocodone Recent diagnosis of lung cancer Recent diagnosis of atrial fibrillation Underlying history of hypertension Underlying history of degenerative disc disease At this time patient is admitted to medical floor, Home medications reviewed and reordered Pulmonary cardiology and pain management services were consulted Plans for CT-guided biopsy of the lumbar spine 01/15/2022 Will follow closely
[2022-01-15 10:46] LABS: ALT 18 U/L (4-34); AST 33 U/L (14-36); African American GFR (CKD) >90 (>60 ml/min/1.73 sqM); Albumin 3.5 g/dL (3.5-5.0); Alkaline Phosphatase 129 U/L (38-126); Anion Gap 9 mmol/L; Blood Urea Nitrogen 15 mg/dL (7-17); Calcium 8.6 mg/dL (8.4-10.2); Carbon Dioxide 23 mmol/L (22-30); Chloride 104 mmol/L (98-107); Glucose 91 mg/dL (74-99); Non-African American GFR(CKD) 90 (>60 ml/min/1.73 sqM); Potassium 4.7 mmol/L (3.5-5.1); Sodium 136 mmol/L (137-145); Total Bilirubin 0.7 mg/dL (0.2-1.3); Total Protein 6.6 g/dL (6.3-8.2)
[2022-01-15 11:25] LABS: Basophils % (A) 1 %; Eosinophils # (A) 0.5 k/uL (0-0.7); Eosinophils % (A) 6 %; HCT 33.2 % (34.0-46.0); HGB 10.9 gm/dL (11.4-16.0); Hypochromasia Slight; Lymphocytes # (A) 0.7 k/uL (1.0-4.8); Lymphocytes % (A) 9 %; MCH 28.5 pg (25.0-35.0); MCHC 32.9 g/dL (31.0-37.0); MCV 86.7 fL (80.0-100.0); Mean Platelet Volume 10.2; Monocytes # (A) 0.6 k/uL (0-1.0); Monocytes % (A) 8 %; Neutrophils # (A) 5.6 k/uL (1.3-7.7); Neutrophils % (A) 74 %; Platelet Count 174 k/uL (150-450); RBC 3.83 m/uL (3.80-5.40); RDW 13.1 % (11.5-15.5); WBC 7.5 k/uL (3.8-10.6)
[2022-01-15] MEDS ORDERED: MIDAZOLAM 2 MG/2 ML VIAL ONE (12:05)
[2022-01-15] MEDS ORDERED: KETAMINE 10 MG/ML 20 ML VIAL ONE (12:05)
[2022-01-15] MEDS: SODIUM CHLORIDE 0.9% 1,000 ML IV SCH (12:36)
--- NOTE | 2022-01-15 12:54 | P.PN ---
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 This is a 76-year-old female with history of multiple medical problems, patient was seen on consultation back on 12/27/21, and she was felt to have bronchogenic carcinoma. She was seen by Dr. logan performed bronchoscopy, mccallum needle aspirations, endobronchial biopsies, however the pathology came back nondiagnostic. Patient was eventually discharged home after her bronchoscopy and she was supposed to follow-up with me on outpatient basis. Patient was supposed to have a PET scan on outpatient basis also. And neither one of those was done. Patient came to the ER this morning complaining of generalized symptoms of weakness, low back pain, and constipation. Repeat CT of the chest showed multiple abnormalities consistent with bronchogenic carcinoma including a cavitating mass in the right lower lobe, left side paraspinal mass which has increased in size compared to a few weeks ago, and there is also a right upper lobe mass/consolidation which is also increased in size compared to the previous exam. All the findings are pointing to worsening bronchogenic carcinoma. X- rays of lumbar spine showed moderate multilevel disc degeneration. CBC is relatively normal electrolytes are normal, d-dimer is 4.68. Electrolytes and renal profile are normal Reevaluated today on 01/14/22, patient continues to have severe back pain, CT of the abdomen and pelvis today the possibility of metastatic disease to the lumbosacral spine. Patient was seen by oncology, and we discussed over the phone with the oncologist, patient will definitely need a tissue diagnosis, I w as planning to have a repeat bronchoscopy on this patient, but now considering the findings on the lumbar spine, I believe the patient will have a better chance of diagnoses having lumbar biopsy, and in case if it's positive the patient may even need radiation treatment. She will also need MRI of the lumbosacral spine. Pulmonary-[facility] the patient does not have much symptoms except occasional cough and wheezing, but her symptoms seemed to be mostly related to her low back pain and weakness in the legs. CBC today is unremarkable, basic metabolic profile is also unremarkable. Calcium is normal. Reevaluated today on 01/15/22, patient is basically about the same, she is supposedly scheduled to undergo biopsy of her lumbar vertebral, highly suspicious for metastatic disease, this would be done by interventional radiology. Clinically the patient is about the same, continues to have severe back pain, continues to have intermittent cough and wheezing, no fever no chills no hemoptysis and no chest pain. CBC today is relatively unremarkable, basic metabolic profile is normal Objective - Vital Signs Vital signs: Vital Signs Temp 98.6 F 01/15/22 08:55 Pulse 70 01/15/22 11:15 Resp 18 01/15/22 11:15 BP 147/68 01/15/22 11:15 Pulse Ox 98 01/15/22 11:15 FiO2 Intake & Output 01/14/22 01/15/22 01/15/22 18:59 06:59 18:59 Intake Total 476 Balance 476 Intake: Oral 476 Other: Voiding Method Toilet Toilet Toilet # Voids 2 1 1 - Exam Physical Exam: Revealed 76-year-old female in no distress. Head: Atraumatic, normocephalic. HEENT:[Neck is supple.] [No neck masses.] [No thyromegaly.] [No JVD.] Chest: Scattered rhonchi noted bilaterally more so on forced expiratory maneuver. Cardiac Exam: [Normal S1 and S2, no S3 gallop, no murmur.] Abdomen: [Soft, nontender, no megaly, no rebound, no guarding, normal bowel sounds.] Extremities: [No clubbing, no edema, no cyanosis.] Neurological Exam: [No focal neurologic deficit.] Alert and oriented 3, no gross focal deficit Psychiatric: Normal mood affect and normal mental status examination. Neurologic: Alert oriented 3 no gross focal deficits. Skin: No rashes. 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 Ex-smoker patient quit smoking about 18 years ago. Acute exacerbation of COPD Benign essential hypertension History of bariatric surgery/sleeve gastrectomy in 2018. Recommendation: Awaiting biopsy by interventional radiology If not diagnostic will reconsider repeat bronchoscopy Prognosis is extremely poor and guarded. Continue bronchodilators. For her underlying COPD Will follow Time with Patient: Less than 30
--- NOTE | 2022-01-15 13:39 | CT ---
PROCEDURE: CT-guided bone fine needle aspiration and core biopsy of sacral mass. DATE OF SERVICE: 01/15/2022 1:10 PM INDICATION: 76-year-old female with lytic lesion of the sacrum. There is concern for metastatic disea se. RADIOLOGIST: Dr. Jolly VICE PRESIDENT OF TALENT ACQUISITION: None. ANESTHESIA: Local 1% lidocaine and IV sedation per anesthesia. RADIATION DOSE: DLP = 2442 mGy TECHNIQUE: I verify that I have discussed the potential benefits, risks, and side effects regarding this treatme nt/procedure, the likelihood of the patient achieving his or her goals, and the potential problems th at might occur during recuperation. I verify that I have explained the alternatives to the patient including the risks, benefits, and side effects related to the alternatives and the risks related to not receiving the operation/procedure/treatment. The patient/surrogate decision maker has had an opp ortunity to ask and have questions answered. I have secured the patient's or the surrogate decision maker's consent prior to the operation/procedure/treatment. Patient was placed left lateral decubitus on the CT scanner table and a preliminary CT scan, with use of iterative reconstruction technique, of the pelvis was performed. The posterior gluteal region wa s prepped and draped in usual sterile fashion. 1% lidocaine was infused into the skin and subcutaneo us soft tissues to the level of the right sacrum. A 17-gauge trocar needle was advanced under CT guid ance into the posterior right sacrum. The inner stylet was removed. A 22-gauge spinal needle was adva nced through the trocar needle. Final aspiration was performed multiple times. The aspirate was given to the radiation therapy technologist. Following aspiration, multiple core samples were obtained and placed i n formalin. The trocar needle was removed and hemostasis quickly achieved with manual compression pre ssure. Patient tolerated the procedure well with no immediate postprocedural complication. Patient was transferred from the radiology department to recovery in stable condition. FINDINGS: Axial images of the pelvis redemonstrated the lytic lesion within the sacrum. Intraprocedural images demonstrate satisfactory positioning of biopsy needles for adequate specimen s ampling. IMPRESSION: Technically successful CT guided fine needle aspiration and core biopsy of right lytic sacral mass.
--- NOTE | 2022-01-15 16:13 | P.PN ---
Subjective Progress Note Date: 01/15/22 The patient appears comfortable usually sitting in the chair, but complains of ongoing significant pain in the sacral area. She states that she still has not had a bowel movement. No fever or chills Objective - Vital Signs Vital signs: Vital Signs Temp 98.3 F 01/15/22 13:30 Pulse 79 01/15/22 15:15 Resp 16 01/15/22 15:15 BP 154/67 01/15/22 15:15 Pulse Ox 96 01/15/22 15:15 FiO2 Intake & Output 01/14/22 01/15/22 01/15/22 18:59 06:59 18:59 Intake Total 476 Output Total 400 Balance 476 -400 Intake: Oral 476 Output: Urine 400 Other: Voiding Method Toilet Toilet Toilet # Voids 2 1 3 - Constitutional General appearance: Present: no acute distress - EENT Eyes: Present: EOMI ENT: Present: hearing grossly normal, normal oropharynx - Respiratory Respiratory: bilateral: CTA - Cardiovascular Rhythm: regular Heart sounds: normal: S1, S2 - Gastrointestinal General gastrointestinal: Present: normal bowel sounds, soft - Integumentary Integumentary: Present: normal - Neurologic Neurologic: Present: CNII-XII intact - Musculoskeletal Musculoskeletal: Present: generalized weakness, strength equal bilaterally - Psychiatric Psychiatric: Present: A&O x's 3, appropriate affect - Labs CBC & Chem 7: 01/15/22 10:15 01/15/22 10:15 Labs: Abnormal Lab Results - Last 24 Hours (Table) 01/15/22 01/15/22 Range/Units 10:15 10:15 Hgb 10.9 L (11.4-16.0) gm/dL Hct 33.2 L (34.0-46.0) % Lymphocytes # 0.7 L (1.0-4.8) k/uL Sodium 136 L (137-145) mmol/L Alkaline Phosphatase 129 H (38-126) U/L Microbiology - Last 24 Hours (Table) 01/12/22 18:00 Blood Culture - Preliminary Blood No Growth after 48 hours 01/12/22 17:45 Blood Culture - Preliminary Blood No Growth after 48 hours Assessment and Plan (1) Intractable low back pain Narrative/Plan: The patient's CT of the abdomen and pelvis revealed evidence of metastatic disease involving L5 and S1, which appears to be the source of her pain. Radiation oncology has been consulted and I will evaluated the patient. Case was discussed with them. They plan on starting palliative radiation. It was di scussed that this area may be targeted for biopsy. In that case we will follow up until biopsy is completed - Add Senokot for constipation due to pain and narcotics - Currently on [place] and Dilaudid. Current Visit: Yes Status: Acute Code(s): M54.59 - OTHER LOW BACK PAIN SNOMED Code(s): 18295042618606943 (2) Lung cancer Narrative/Plan: The patient has not yet had her PET scan, however CT scan from evidence of stage IV disease. This was discussed with the patient. PET scan will be rescheduled as an outpatient. Case was discussed in detail with pulmonary medicine. Previous bronchoscopy with biopsy was nondiagnostic. Therefore the patient needs another diagnostic procedure for embolic confirmation. Discussion it was decided to consult IR to target either the sacral lesion, or the left lower thoracic paraspinal lesion. Current Visit: Yes Status: Acute Code(s): C34.90 - MALIGNANT NEOPLASM OF UNSP PART OF UNSP BRONCHUS OR LUNG SNOMED Code(s): 692089263
[2022-01-15] MEDS: SENNOSIDES-DOCUSATE SODIUM 1 EACH TAB PO SCH (21:15)
[2022-01-16] MEDS: HYDROmorphone 0.5 MG/0.5 ML SYRINGE IVP PRN ×6 (02:24→22:33)
[2022-01-16] MEDS: SODIUM CHLORIDE 0.9% 1,000 ML IV SCH ×3 (02:28→23:46)
[2022-01-16] MEDS: HYDROcodone/APAP 10-325MG 1 EACH TAB PO PRN ×4 (03:54→20:20)
[2022-01-16] MEDS: SYMBICORT 160-4.5 MCG INHALER INHALATION SCH ×2 (08:34→19:56)
[2022-01-16] MEDS: PANTOPRAZOLE 40 MG/10 ML VIAL IV SCH (08:35)
[2022-01-16] MEDS: amLODIPine 5 MG TAB PO SCH (08:35)
[2022-01-16] MEDS: METOPROLOL TARTRATE 25 MG TAB PO SCH ×2 (08:35→20:20)
[2022-01-16] MEDS ORDERED: DILTIAZEM DRIP BOLUS FROM BAG 1 MG SOLN IV ONE (09:11)
[2022-01-16 10:50] LABS: Basophils % (A) 0 %; Eosinophils # (A) 0.3 k/uL (0-0.7); Eosinophils % (A) 3 %; HCT 35.5 % (34.0-46.0); HGB 11.2 gm/dL (11.4-16.0); Hypochromasia Moderate; Lymphocytes # (A) 1.1 k/uL (1.0-4.8); Lymphocytes % (A) 13 %; MCH 28.3 pg (25.0-35.0); MCHC 31.7 g/dL (31.0-37.0); MCV 89.3 fL (80.0-100.0); Mean Platelet Volume 8.9; Monocytes # (A) 0.5 k/uL (0-1.0); Monocytes % (A) 6 %; Neutrophils # (A) 6.6 k/uL (1.3-7.7); Neutrophils % (A) 76 %; Platelet Count 183 k/uL (150-450); RBC 3.97 m/uL (3.80-5.40); RDW 13.1 % (11.5-15.5); WBC 8.7 k/uL (3.8-10.6)
[2022-01-16 11:07] LABS: ALT 17 U/L (4-34); AST 33 U/L (14-36); African American GFR (CKD) >90 (>60 ml/min/1.73 sqM); Albumin 3.6 g/dL (3.5-5.0); Alkaline Phosphatase 124 U/L (38-126); Anion Gap 9 mmol/L; Blood Urea Nitrogen 12 mg/dL (7-17); Calcium 8.7 mg/dL (8.4-10.2); Carbon Dioxide 22 mmol/L (22-30); Chloride 106 mmol/L (98-107); Glucose 108 mg/dL (74-99); Non-African American GFR(CKD) 86 (>60 ml/min/1.73 sqM); Potassium 4.5 mmol/L (3.5-5.1); Sodium 137 mmol/L (137-145); Total Bilirubin 0.7 mg/dL (0.2-1.3); Total Protein 6.6 g/dL (6.3-8.2)
--- NOTE | 2022-01-16 13:16 | P.PN ---
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 This is a 76-year-old female with history of multiple medical problems, patient was seen on consultation back on 12/27/21, and she was felt to have bronchogenic carcinoma. She was seen by Dr. logan performed bronchoscopy, mccallum needle aspirations, endobronchial biopsies, however the pathology came back nondiagnostic. Patient was eventually discharged home after her bronchoscopy and she was supposed to follow-up with me on outpatient basis. Patient was supposed to have a PET scan on outpatient basis also. And neither one of those was done. Patient came to the ER this morning complaining of generalized symptoms of weakness, low back pain, and constipation. Repeat CT of the chest showed multiple abnormalities consistent with bronchogenic carcinoma including a cavitating mass in the right lower lobe, left side paraspinal mass which has increased in size compared to a few weeks ago, and there is also a right upper lobe mass/consolidation which is also increased in size compared to the previous exam. All the findings are pointing to worsening bronchogenic carcinoma. X- rays of lumbar spine showed moderate multilevel disc degeneration. CBC is relatively normal electrolytes are normal, d-dimer is 4.68. Electrolytes and renal profile are normal Reevaluated today on 01/14/22, patient continues to have severe back pain, CT of the abdomen and pelvis today the possibility of metastatic disease to the lumbosacral spine. Patient was seen by oncology, and we discussed over the phone with the oncologist, patient will definitely need a tissue diagnosis, I w as planning to have a repeat bronchoscopy on this patient, but now considering the findings on the lumbar spine, I believe the patient will have a better chance of diagnoses having lumbar biopsy, and in case if it's positive the patient may even need radiation treatment. She will also need MRI of the lumbosacral spine. Pulmonary[facility] the patient does not have much symptoms except occasional cough and wheezing, but her symptoms seemed to be mostly related to her low back pain and weakness in the legs. CBC today is unremarkable, basic metabolic profile is also unremarkable. Calcium is normal. Reevaluated today on 01/15/22, patient is basically about the same, she is supposedly scheduled to undergo biopsy of her lumbar vertebral, highly suspicious for metastatic disease, this would be done by interventional radiology. Clinically the patient is about the same, continues to have severe back pain, continues to have intermittent cough and wheezing, no fever no chills no hemoptysis and no chest pain. CBC today is relatively unremarkable, basic metabolic profile is normal Reevaluated today on 01/16/22, not much of a change in the last 24 hours, continues to have low back pain, patient underwent CT-guided bone fine-needle aspiration and core biopsy of sacral mass. Results of which are pending. If nondiagnostic, I would definitely proceed to repeat bronchoscopy on this patient. We are strongly suspicious that we are dealing with primarily bronchogenic carcinoma and metastases to the lumbosacral spine Objective - Vital Signs Vital signs: Vital Signs Temp 97.2 F L 01/16/22 08:00 Pulse 94 01/16/22 08:00 Resp 19 01/16/22 08:00 BP 131/92 01/16/22 08:00 Pulse Ox 92 L 01/16/22 08:00 FiO2 Intake & Output 01/15/22 01/16/22 01/16/22 18:59 06:59 18:59 Intake Total 118 Output Total 400 Balance -282 Intake: Oral 118 Output: Urine 400 Other: Voiding Method Toilet Toilet # Voids 1 - Exam Physical Exam: Revealed 76-year-old female in no distress. Head: Atraumatic, normocephalic. HEENT:[Neck is supple.] [No neck masses.] [No thyromegaly.] [No JVD.] Chest: Scattered rhonchi noted bilaterally more so on forced expiratory maneuver. Cardiac Exam: [Normal S1 and S2, no S3 gallop, no murmur.] Abdomen: [Soft, nontender, no megaly, no rebound, no guarding, normal bowel sounds.] Extremities: [No clubbing, no edema, no cyanosis.] Neurological Exam: [No focal neurologic deficit.] Alert and oriented 3, no gross focal deficit Psychiatric: Normal mood affect and normal mental status examination. Neurologic: Alert oriented 3 no gross focal deficits. Skin: No rashes. 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 Patient is status post CT-guided bone fine-needle aspiration and core biopsy of sacral mass postoperative day #1 Ex-smoker patient quit smoking about 18 years ago. Acute exacerbation of COPD Benign essential hypertension History of bariatric surgery/sleeve gastrectomy in 2018. Recommendation: Awaiting pathology report from sacral biopsy If not diagnostic will reconsider repeat bronchoscopy Pain management as per primary care physician Continue bronchodilators. For her underlying COPD Will follow Time with Patient: Less than 30
--- NOTE | 2022-01-16 14:01 | PN ---
PROGRESS NOTE SUBJECTIVE: Gracie is a 76-year-old lady who is admitted to hospital with atrial fibrillation with rapid ventricular rate, converted back to sinus rhythm. She went into atrial fibrillation this morning. We started her on Cardizem. From cardiac standpoint, she is doing well. Her predominant symptom is in the form of generalized body aches. OBJECTIVE: GENERAL: Afebrile. VITAL SIGNS: Heart rate is 88 beats per minute, blood pressure is 140/64, respiratory rate is 18, O2 saturation is 98% on room air. NECK: There is no jugular venous distention. CHEST: Reveals good air entry bilaterally. HEART: Reveals first and second heart sounds. No gallop, no murmur. EXTREMITIES: Did not reveal any edema. Peripheral pulses are felt. ASSESSMENT: Persistent atrial fibrillation with poorly controlled ventricular rate. Will continue the IV Cardizem, Pamneilrenu is on hold as she is undergoing procedures. MMODL / IJN: [id number] /
[2022-01-16] MEDS: DILTIAZEM 125 MG in SODIUM CHLORIDE 0.9% 100 ML IV SCH ×2 (15:35→21:46)
[2022-01-16] MEDS: bisacodyL 10 MG SUPP RECTAL PRN (16:39)
--- NOTE | 2022-01-16 18:48 | P.PN ---
Subjective Progress Note Date: 01/16/22 Gracie Ybarra, is a 76 year-old female who presented to [facility] with a chief complaint of low back pain, and constipation, patient was recently diagnosed with lung cancer she was also diagnosed with atrial fibrillation recently, she is followed by pulmonary and cardiology as outpatient. Patient was evaluated in the emergency room CT angiogram of the chest revealed no evidence of pulmonary embolism however she had multiple abnormalities consistent with tumor with cavitating mass in the right lower lobe and also left side paraspinal mass, she was admitted to medical floor, consultation for pulmonary, and pain management was initiated. On review of system patient is alert and oriented 3 in no apparent distress she is complaining of low back pain otherwise she denies any complaints there is no fever or chills no headache or dizziness no chest pain no shortness of breath no cough no nausea or vomiting no diarrhea stools no burning with urination no frequency or urgency no hematuria On 01/14/2022 patient was seen and examined on the medical floor she is complaining of low back pain, she is also complaining of cough and mild shortness of breath otherwise she denies any complaints there is no fever or chills no headache or dizziness no chest pain no nausea or vomiting no abdominal pain no diarrhea and no urinary symptoms, input from pulmonary and oncology reviewed, awaiting tissue diagnosis, will follow closely On 01/15/2022 patient is alert and oriented 3. Patient still complaining of lower back discomfort. Plans for CT-guided biopsy of the lumbar spine today. Patient denies chest pain or shortness breath. Patient denies nausea vomiting diarrhea. Patient denies any urinary burning or frequency. On 01/16/2022 patient was seen and examined on the medical floor she is alert and oriented 3 in no apparent distress, there is no fever or chills no headache or dizziness, she reports improvement in her shortness of breath and cough she denies any chest pain there is no nausea or vomiting no abdominal pain no diarrhea and no urinary symptoms, she underwent CT-guided bone fine-needle aspiration and core biopsy of the sacral area. Objective - Vital Signs Vital signs: Vital Signs Temp 98.8 F 01/16/22 16:00 Pulse 70 01/16/22 16:00 Resp 18 01/16/22 16:00 BP 121/72 01/16/22 16:00 Pulse Ox 98 01/16/22 16:00 FiO2 Intake & Output 11/30/22 12/01/22 12/01/22 18:59 06:59 18:59 Intake Total 118 510 Output Total 400 Balance -282 510 Intake: Intake, IV Titration 150 Amount Sodium Chloride 0.9% 1, 150 000 ml @ 75 mls/hr IV . [id number] [facility] Rx#:[id number] Oral 118 360 Output: Urine 400 Other: Voiding Method Toilet Toilet Toilet # Voids 1 - Exam In general patient is alert and oriented x 3 in no distress HEENT head normocephalic and atraumatic Neck is supple no JVD no goiter no lymphadenopathy no carotid bruit Chest examination is clear to auscultation no crackles no wheezing Cardiac exam reveals regular heart sounds S1 and S2 no gallops no murmurs Abdomen is soft nontender no organomegaly with normal bowel sounds Extremity exam reveals no edema no cyanosis or clubbing Neurological examination reveals no gross focal deficits - Labs CBC & Chem 7: 01/16/22 09:41 01/16/22 09:41 Labs: Abnormal Lab Results - Last 24 Hours (Table) 01/16/22 01/16/22 Range/Units 09:41 09:41 Hgb 11.2 L (11.4-16.0) gm/dL Glucose 108 H (74-99) mg/dL Microbiology - Last 24 Hours (Table) 01/12/22 17:45 Blood Culture - Preliminary Blood No Growth after 72 hours 01/12/22 18:00 Blood Culture - Preliminary Blood No Growth after 72 hours Assessment and Plan Plan: Intractable back pain Constipation likely related to the use of hydrocodone Recent diagnosis of lung cancer Recent diagnosis of atrial fibrillation Underlying history of hypertension Underlying history of degenerative disc disease At this time patient is admitted to medical floor, Home medications reviewed and reordered Pulmonary cardiology and pain management services were consulted Plans for CT-guided biopsy of the lumbar spine 01/15/2022 Will follow closely
[2022-01-16] MEDS: SENNOSIDES-DOCUSATE SODIUM 1 EACH TAB PO SCH (20:21)
[2022-01-17] MEDS: HYDROcodone/APAP 10-325MG 1 EACH TAB PO PRN ×4 (02:32→19:53)
[2022-01-17] MEDS: HYDROmorphone 0.5 MG/0.5 ML SYRINGE IVP PRN ×6 (05:59→23:47)
[2022-01-17] MEDS: SYMBICORT 160-4.5 MCG INHALER INHALATION SCH ×2 (08:00→20:05)
[2022-01-17 08:31] LABS: ALT 18 U/L (4-34); AST 30 U/L (14-36); African American GFR (CKD) >90 (>60 ml/min/1.73 sqM); Albumin 3.6 g/dL (3.5-5.0); Alkaline Phosphatase 123 U/L (38-126); Anion Gap 10 mmol/L; Blood Urea Nitrogen 15 mg/dL (7-17); Calcium 8.9 mg/dL (8.4-10.2); Carbon Dioxide 22 mmol/L (22-30); Chloride 108 mmol/L (98-107); Glucose 96 mg/dL (74-99); Non-African American GFR(CKD) 86 (>60 ml/min/1.73 sqM); Potassium 4.2 mmol/L (3.5-5.1); Sodium 140 mmol/L (137-145); Total Bilirubin 0.6 mg/dL (0.2-1.3); Total Protein 6.6 g/dL (6.3-8.2)
[2022-01-17] MEDS: DILTIAZEM 125 MG in SODIUM CHLORIDE 0.9% 100 ML IV SCH (08:43)
[2022-01-17 09:02] LABS: Basophils % (A) 0 %; Eosinophils # (A) 0.4 k/uL (0-0.7); Eosinophils % (A) 5 %; HCT 33.2 % (34.0-46.0); HGB 10.7 gm/dL (11.4-16.0); Lymphocytes # (A) 1.2 k/uL (1.0-4.8); Lymphocytes % (A) 15 %; MCH 27.9 pg (25.0-35.0); MCHC 32.3 g/dL (31.0-37.0); MCV 86.3 fL (80.0-100.0); Monocytes # (A) 0.6 k/uL (0-1.0); Monocytes % (A) 7 %; Neutrophils # (A) 5.8 k/uL (1.3-7.7); Neutrophils % (A) 70 %; Platelet Count 192 k/uL (150-450); RBC 3.85 m/uL (3.80-5.40); RDW 13.3 % (11.5-15.5); WBC 8.3 k/uL (3.8-10.6)
[2022-01-17] MEDS: amLODIPine 5 MG TAB PO SCH (09:07)
[2022-01-17] MEDS: PANTOPRAZOLE 40 MG/10 ML VIAL IV SCH (09:07)
[2022-01-17] MEDS: METOPROLOL TARTRATE 25 MG TAB PO SCH (09:07)
--- NOTE | 2022-01-17 11:17 | P.PN ---
Subjective Progress Note Date: 01/17/22 Gracie Ybarra, is a 76 year-old female who presented to [facility] with a chief complaint of low back pain, and constipation, patient was recently diagnosed with lung cancer she was also diagnosed with atrial fibrillation recently, she is followed by pulmonary and cardiology as outpatient. Patient was evaluated in the emergency room CT angiogram of the chest revealed no evidence of pulmonary embolism however she had multiple abnormalities consistent with tumor with cavitating mass in the right lower lobe and also left side paraspinal mass, she was admitted to medical floor, consultation for pulmonary, and pain management was initiated. On review of system patient is alert and oriented 3 in no apparent distress she is complaining of low back pain otherwise she denies any complaints there is no fever or chills no headache or dizziness no chest pain no shortness of breath no cough no nausea or vomiting no diarrhea stools no burning with urination no frequency or urgency no hematuria On 01/14/2022 patient was seen and examined on the medical floor she is complaining of low back pain, she is also complaining of cough and mild shortness of breath otherwise she denies any complaints there is no fever or chills no headache or dizziness no chest pain no nausea or vomiting no abdominal pain no diarrhea and no urinary symptoms, input from pulmonary and oncology reviewed, awaiting tissue diagnosis, will follow closely On 01/15/2022 patient is alert and oriented 3. Patient still complaining of lower back discomfort. Plans for CT-guided biopsy of the lumbar spine today. Patient denies chest pain or shortness breath. Patient denies nausea vomiting diarrhea. Patient denies any urinary burning or frequency. On 01/16/2022 patient was seen and examined on the medical floor she is alert and oriented 3 in no apparent distress, there is no fever or chills no headache or dizziness, she reports improvement in her shortness of breath and cough she denies any chest pain there is no nausea or vomiting no abdominal pain no diarrhea and no urinary symptoms, she underwent CT-guided bone fine-needle aspiration and core biopsy of the sacral area. On 01/17/2022 patient is alert and oriented 3. Patient remains on IV Cardizem drip. Discussed with nursing staff to address anticoagulation with cardiology services. Patient denies chest pain or shortness of breath. Patient denies nausea vomiting or diarrhea. Patient denies any urinary burning or frequency Objective - Vital Signs Vital signs: Vital Signs Temp 97.9 F 01/17/22 08:00 Pulse 78 01/17/22 08:00 Resp 17 01/17/22 08:00 BP 144/58 01/17/22 08:00 Pulse Ox 100 01/17/22 08:00 FiO2 Intake & Output 01/16/22 01/17/22 01/17/22 18:59 06:59 18:59 Intake Total 510 900 Balance 510 900 Intake: Intake, IV Titration 150 600 Amount Sodium Chloride 0.9% 1, 150 600 000 ml @ 75 mls/hr IV . [id number] [facility] Rx#:[id number] Oral 360 300 Other: Voiding Method Toilet Toilet # Voids 2 3 # Bowel Movements 1 0 - Exam In general patient is alert and oriented x 3 in no distress HEENT head normocephalic and atraumatic Neck is supple no JVD no goiter no lymphadenopathy no carotid bruit Chest examination is clear to auscultation no crackles no wheezing Cardiac exam reveals regular heart sounds S1 and S2 no gallops no murmurs Abdomen is soft nontender no organomegaly with normal bowel sounds Extremity exam reveals no edema no cyanosis or clubbing Neurological examination reveals no gross focal deficits - Labs CBC & Chem 7: 01/17/22 07:38 01/17/22 07:20 Labs: Abnormal Lab Results - Last 24 Hours (Table) 01/17/22 01/17/22 Range/Units 07:20 07:38 Hgb 10.7 L (11.4-16.0) gm/dL Hct 33.2 L (34.0-46.0) % Chloride 108 H (98-107) mmol/L Microbiology - Last 24 Hours (Table) 01/12/22 17:45 Blood Culture - Preliminary Blood No Growth after 96 hours 01/12/22 18:00 Blood Culture - Preliminary Blood No Growth after 96 hours Assessment and Plan Plan: Intractable back pain Constipation likely related to the use of hydrocodone Recent diagnosis of lung cancer Recent diagnosis of atrial fibrillation Underlying history of hypertension Underlying history of degenerative disc disease At this time patient is admitted to medical floor, Home medications reviewed and reordered Pulmonary cardiology and pain management services were consulted Plans for CT-guided biopsy of the lumbar spine 01/15/2022 Anticoagulation to be addressed per cardiology services Patient remains on IV Cardizem Will follow closely
[2022-01-17] MEDS: METOPROLOL TARTRATE 50 MG TAB PO SCH ×2 (12:51→19:54)
[2022-01-17 13:48] VITALS: BMI 32.1
[2022-01-17] MEDS: LIDOCAINE 5% PATCH TOPICAL SCH (14:16)
--- NOTE | 2022-01-17 14:23 | P.PN ---
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 This is a 76-year-old female with history of multiple medical problems, patient was seen on consultation back on 12/27/21, and she was felt to have bronchogenic carcinoma. She was seen by Dr. logan performed bronchoscopy, mccallum needle aspirations, endobronchial biopsies, however the pathology came back nondiagnostic. Patient was eventually discharged home after her bronchoscopy and she was supposed to follow-up with me on outpatient basis. Patient was supposed to have a PET scan on outpatient basis also. And neither one of those was done. Patient came to the ER this morning complaining of generalized symptoms of weakness, low back pain, and constipation. Repeat CT of the chest showed multiple abnormalities consistent with bronchogenic carcinoma including a cavitating mass in the right lower lobe, left side paraspinal mass which has increased in size compared to a few weeks ago, and there is also a right upper lobe mass/consolidation which is also increased in size compared to the previous exam. All the findings are pointing to worsening bronchogenic carcinoma. X- rays of lumbar spine showed moderate multilevel disc degeneration. CBC is relatively normal electrolytes are normal, d-dimer is 4.68. Electrolytes and renal profile are normal Reevaluated today on 01/14/22, patient continues to have severe back pain, CT of the abdomen and pelvis today the possibility of metastatic disease to the lumbosacral spine. Patient was seen by oncology, and we discussed over the phone with the oncologist, patient will definitely need a tissue diagnosis, I w as planning to have a repeat bronchoscopy on this patient, but now considering the findings on the lumbar spine, I believe the patient will have a better chance of diagnoses having lumbar biopsy, and in case if it's positive the patient may even need radiation treatment. She will also need MRI of the lumbosacral spine. Pulmonary-[place] the patient does not have much symptoms except occasional cough and wheezing, but her symptoms seemed to be mostly related to her low back pain and weakness in the legs. CBC today is unremarkable, basic metabolic profile is also unremarkable. Calcium is normal. Reevaluated today on 01/15/22, patient is basically about the same, she is supposedly scheduled to undergo biopsy of her lumbar vertebral, highly suspicious for metastatic disease, this would be done by interventional radiology. Clinically the patient is about the same, continues to have severe back pain, continues to have intermittent cough and wheezing, no fever no chills no hemoptysis and no chest pain. CBC today is relatively unremarkable, basic metabolic profile is normal Reevaluated today on 01/16/22, not much of a change in the last 24 hours, continues to have low back pain, patient underwent CT-guided bone fine-needle aspiration and core biopsy of sacral mass. Results of which are pending. If nondiagnostic, I would definitely proceed to repeat bronchoscopy on this patient. We are strongly suspicious that we are dealing with primarily bronchogenic carcinoma and metastases to the lumbosacral spine Patient is not in her room during my rounds, however I reviewed her workup and her labs from today, we are still waiting for the results of her sacral mass biopsy which was done by interventional radiology. According to the note by her admitting physician, patient remains on the same medications we had her on all along, and she is constipated mostly from narcotics given to her for severe back pain. CBC is relatively normal hemoglobin is 10.7. Objective - Vital Signs Vital signs: Vital Signs Temp 97.9 F 01/17/22 08:00 Pulse 78 01/17/22 08:00 Resp 17 01/17/22 08:00 BP 144/58 01/17/22 08:00 Pulse Ox 100 01/17/22 08:00 FiO2 Intake & Output 01/16/22 01/17/22 01/17/22 18:59 06:59 18:59 Intake Total 510 900 Balance 510 900 Weight 84.822 kg Intake: Intake, IV Titration 150 600 Amount Sodium Chloride 0.9% 1, 150 600 000 ml @ 75 mls/hr IV . [id number] [facility] Rx#:[id number] Oral 360 300 Other: Voiding Method Toilet Toilet # Voids 2 3 # Bowel Movements 1 0 - Exam Patient was not officially seen, was not present in the room during my rounds - Labs CBC & Chem 7: 01/17/22 07:38 01/17/22 07:20 Labs: Abnormal Lab Results - Last 24 Hours (Table) 01/17/22 01/17/22 Range/Units 07:20 07:38 Hgb 10.7 L (11.4-16.0) gm/dL Hct 33.2 L (34.0-46.0) % Chloride 108 H (98-107) mmol/L Microbiology - Last 24 Hours (Table) 01/12/22 17:45 Blood Culture - Preliminary Blood No Growth after 96 hours 01/12/22 18:00 Blood Culture - Preliminary Blood No Growth after 96 hours Assessment and Plan Assessment: Advanced bronchogenic carcinoma, 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 Patient is status post CT-guided bone fine-needle aspiration and core biopsy of sacral mass postoperative day #2 Ex-smoker patient quit smoking about 18 years ago. Acute exacerbation of COPD Benign essential hypertension History of bariatric surgery/sleeve gastrectomy in 2018. Recommendation: Awaiting pathology report from sacral biopsy Pain management as per primary care physician Continue bronchodilators. For her underlying COPD May require radiation treatment if tissue diagnosis is made from sacral mass biopsy Will follow Time with Patient: Less than 30
--- NOTE | 2022-01-17 16:27 | P.PN ---
Subjective Progress Note Date: 01/17/22 Principal diagnosis: low back pain - metastatic lung cancer The patient reports she is still having a lot of low back discomfort (tailbone area). She states this is largely unchanged. She appears to have only taken Dilaudid and [place] once today. Objective - Vital Signs Vital signs: Vital Signs Temp 97.9 F 01/17/22 08:00 Pulse 78 01/17/22 08:00 Resp 17 01/17/22 08:00 BP 144/58 01/17/22 08:00 Pulse Ox 100 01/17/22 08:00 FiO2 Intake & Output 01/16/22 01/17/22 01/17/22 18:59 06:59 18:59 Intake Total 510 900 Balance 510 900 Weight 84.822 kg Intake: Intake, IV Titration 150 600 Amount Sodium Chloride 0.9% 1, 150 600 000 ml @ 75 mls/hr IV . [id number] [facility] Rx#:[id number] Oral 360 300 Other: Voiding Method Toilet Toilet # Voids 2 3 # Bowel Movements 1 0 - Constitutional General appearance: Present: no acute distress - EENT Eyes: Present: EOMI, PERRLA ENT: Present: hearing grossly normal - Respiratory Respiratory: bilateral: CTA - Gastrointestinal General gastrointestinal: Absent: distended - Integumentary Integumentary: Absent: rash - Neurologic Neurologic: Present: CNII-XII intact - Psychiatric Psychiatric: Present: A&O x's 3, appropriate affect - Labs CBC & Chem 7: 01/17/22 07:38 01/17/22 07:20 Labs: Abnormal Lab Results - Last 24 Hours (Table) 01/17/22 01/17/22 Range/Units 07:20 07:38 Hgb 10.7 L (11.4-16.0) gm/dL Hct 33.2 L (34.0-46.0) % Chloride 108 H (98-107) mmol/L Microbiology - Last 24 Hours (Table) 01/12/22 17:45 Blood Culture - Preliminary Blood No Growth after 96 hours 01/12/22 18:00 Blood Culture - Preliminary Blood No Growth after 96 hours Assessment and Plan Assessment: The patient is a 76-year-old female diagnosed recently with a right upper lung mass with abnormal mediastinal adenopathy, as well as likely a couple of metastatic nodules in the lung. She has a [id number] smoking history, but did quit nearly 18 years ago. This is suspicious for an underlying lung primary, but initial biopsy attempts were unremarkable. She unfortunately was hospitalized secondary to increasing pain in the low back. Plan: 1. Low back pain - Etiology is most likely due to metastatic disease involving the sacrum/lumbar region. She did have biopsy of the sacrum on 01/15 - results pending. She has now completed 02/20 radiotherapy treatments directed to this area. 2. Likely underlying lung cancer - Will await biopsy results; oncology on board. I did recommend MRI of the brain (non-urgent) to complete her work-up. Time with Patient: Less than 30
[2022-01-17] MEDS: SODIUM CHLORIDE 0.9% 1,000 ML IV SCH (18:32)
[2022-01-17] MEDS: SENNOSIDES-DOCUSATE SODIUM 1 EACH TAB PO SCH (19:53)
--- NOTE | 2022-01-17 22:17 | PN ---
PROGRESS NOTE SUBJECTIVE: We are following her in the hospital because of atrial fibrillation. She continues to have atrial fibrillation with rapid ventricular rate, but otherwise doing well. She is on intravenous Cardizem and Lopressor 25 b.i.d. that is being increased to 50 b.i.d. Intravenous Cardizem will be stopped. OBJECTIVE: VITAL SIGNS: Heart rate is 78 beats per minute, blood pressure is 144/58, respiratory rate is 18. CHEST: Reveals diminished air entry at the bases. HEART: Reveals first and second heart sounds. No gallop. Has a systolic murmur at the left lower sternal border. LABORATORY DATA: Labs show a hemoglobin of 10.7 platelet count is 192, potassium is 4.2 creatinine is 0.65. AST, ALT are within normal limits. ASSESSMENT: Persistent atrial fibrillation with poorly controlled ventricular rate. PLAN: I am going to stop the IV Cardizem and increase the dose of metoprolol, and resume the Eliquis when all the surgical issues have resolved. MMODL / IJN: [id number] /
[2022-01-18] MEDS: HYDROcodone/APAP 10-325MG 1 EACH TAB PO PRN ×3 (02:52→19:47)
[2022-01-18] MEDS: HYDROmorphone 0.5 MG/0.5 ML SYRINGE IVP PRN ×2 (03:48→07:28)
[2022-01-18] MEDS: ALPRAZolam 0.25 MG TAB PO PRN ×4 (03:54→23:52)
[2022-01-18] MEDS: SODIUM CHLORIDE 0.9% 1,000 ML IV SCH ×2 (07:27→16:52)
[2022-01-18] MEDS: SYMBICORT 160-4.5 MCG INHALER INHALATION SCH ×2 (08:33→20:50)
[2022-01-18] MEDS: amLODIPine 5 MG TAB PO SCH (08:59)
[2022-01-18] MEDS: METOPROLOL TARTRATE 50 MG TAB PO SCH ×2 (08:59→18:35)
[2022-01-18] MEDS: PANTOPRAZOLE 40 MG/10 ML VIAL IV SCH (08:59)
[2022-01-18] MEDS: LIDOCAINE 5% PATCH TOPICAL SCH (09:00)
[2022-01-18 10:52] LABS: Basophils % (A) 0 %; Eosinophils # (A) 0.3 k/uL (0-0.7); Eosinophils % (A) 3 %; HCT 34.3 % (34.0-46.0); HGB 10.4 gm/dL (11.4-16.0); Hypochromasia Marked; Lymphocytes # (A) 0.9 k/uL (1.0-4.8); Lymphocytes % (A) 9 %; MCH 27.5 pg (25.0-35.0); MCHC 30.4 g/dL (31.0-37.0); MCV 90.3 fL (80.0-100.0); Mean Platelet Volume 9.3; Monocytes # (A) 0.6 k/uL (0-1.0); Monocytes % (A) 6 %; Neutrophils # (A) 7.5 k/uL (1.3-7.7); Neutrophils % (A) 79 %; Platelet Count 215 k/uL (150-450); RDW 13.2 % (11.5-15.5); WBC 9.4 k/uL (3.8-10.6)
[2022-01-18 10:58] LABS: ALT 19 U/L (4-34); AST 32 U/L (14-36); African American GFR (CKD) >90 (>60 ml/min/1.73 sqM); Albumin 3.7 g/dL (3.5-5.0); Alkaline Phosphatase 114 U/L (38-126); Anion Gap 9 mmol/L; Blood Urea Nitrogen 15 mg/dL (7-17); Calcium 8.7 mg/dL (8.4-10.2); Carbon Dioxide 22 mmol/L (22-30); Chloride 106 mmol/L (98-107); Glucose 107 mg/dL (74-99); Non-African American GFR(CKD) 87 (>60 ml/min/1.73 sqM); Potassium 4.4 mmol/L (3.5-5.1); Sodium 137 mmol/L (137-145); Total Bilirubin 0.7 mg/dL (0.2-1.3); Total Protein 6.7 g/dL (6.3-8.2)
[2022-01-18] MEDS: HYDROmorphone 1 MG/ML 1 ML SYRINGE IVP PRN ×3 (12:19→23:51)
[2022-01-18] MEDS: MAGNESIUM HYDROXIDE 2,400 MG/10 ML CUP PO PRN (12:19)
[2022-01-18] MEDS: PSYLLIUM HUSK 100% 6 GM PACKET PO SCH (12:20)
--- NOTE | 2022-01-18 12:50 | P.PN ---
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 This is a 76-year-old female with history of multiple medical problems, patient was seen on consultation back on 12/27/21, and she was felt to have bronchogenic carcinoma. She was seen by Dr. logan performed bronchoscopy, mccallum needle aspirations, endobronchial biopsies, however the pathology came back nondiagnostic. Patient was eventually discharged home after her bronchoscopy and she was supposed to follow-up with me on outpatient basis. Patient was supposed to have a PET scan on outpatient basis also. And neither one of those was done. Patient came to the ER this morning complaining of generalized symptoms of weakness, low back pain, and constipation. Repeat CT of the chest showed multiple abnormalities consistent with bronchogenic carcinoma including a cavitating mass in the right lower lobe, left side paraspinal mass which has increased in size compared to a few weeks ago, and there is also a right upper lobe mass/consolidation which is also increased in size compared to the previous exam. All the findings are pointing to worsening bronchogenic carcinoma. X- rays of lumbar spine showed moderate multilevel disc degeneration. CBC is relatively normal electrolytes are normal, d-dimer is 4.68. Electrolytes and renal profile are normal Reevaluated today on 01/14/22, patient continues to have severe back pain, CT of the abdomen and pelvis today the possibility of metastatic disease to the lumbosacral spine. Patient was seen by oncology, and we discussed over the phone with the oncologist, patient will definitely need a tissue diagnosis, I w as planning to have a repeat bronchoscopy on this patient, but now considering the findings on the lumbar spine, I believe the patient will have a better chance of diagnoses having lumbar biopsy, and in case if it's positive the patient may even need radiation treatment. She will also need MRI of the lumbosacral spine. Pulmonary-[facility] the patient does not have much symptoms except occasional cough and wheezing, but her symptoms seemed to be mostly related to her low back pain and weakness in the legs. CBC today is unremarkable, basic metabolic profile is also unremarkable. Calcium is normal. Reevaluated today on 01/15/22, patient is basically about the same, she is supposedly scheduled to undergo biopsy of her lumbar vertebral, highly suspicious for metastatic disease, this would be done by interventional radiology. Clinically the patient is about the same, continues to have severe back pain, continues to have intermittent cough and wheezing, no fever no chills no hemoptysis and no chest pain. CBC today is relatively unremarkable, basic metabolic profile is normal Reevaluated today on 01/16/22, not much of a change in the last 24 hours, continues to have low back pain, patient underwent CT-guided bone fine-needle aspiration and core biopsy of sacral mass. Results of which are pending. If nondiagnostic, I would definitely proceed to repeat bronchoscopy on this patient. We are strongly suspicious that we are dealing with primarily bronchogenic carcinoma and metastases to the lumbosacral spine Patient is not in her room during my rounds, however I reviewed her workup and her labs from today, we are still waiting for the results of her sacral mass biopsy which was done by interventional radiology. According to the note by her admitting physician, patient remains on the same medications we had her on all along, and she is constipated mostly from narcotics given to her for severe back pain. CBC is relatively normal hemoglobin is 10.7. Reevaluated today on 01/18/22, patient continues to have low back pain. Unfortunately pathology from her sacral mass biopsy is pending. However clinically this is highly suspicious for metastatic lung cancer to the lumbosac ral spine. Patient is on narcotics, not controlling her pain well, pulmonary- [facility] she is doing well, hardly any cough wheezing or shortness of breath at present she seems to be more bothered with her low back pain. Patient did complete radiotherapy treatment directly to the area of the lumbosacral spine. Further workup and biopsy are pending Objective - Vital Signs Vital signs: Vital Signs Temp 97.9 F 01/18/22 04:00 Pulse 73 01/18/22 12:00 Resp 16 01/18/22 12:00 BP 107/57 01/18/22 12:00 Pulse Ox 93 L 01/18/22 12:00 FiO2 Intake & Output 01/17/22 01/18/22 01/18/22 18:59 06:59 18:59 Intake Total 690 240 Output Total 200 Balance 690 40 Weight 84.822 kg Intake: Intake, IV Titration 450 Amount Sodium Chloride 0.9% 1, 450 000 ml @ 75 mls/hr IV . [id number] [facility] Rx#:[id number] Oral 240 240 Output: Urine 200 Other: Voiding Method Toilet Toilet Toilet # Voids 1 - Exam Physical Exam: Revealed 76-year-old female in no distress. Head: Atraumatic, normocephalic. HEENT:[Neck is supple.] [No neck masses.] [No thyromegaly.] [No JVD.] Chest: Scattered rhonchi noted bilaterally more so on forced expiratory maneuver. Cardiac Exam: [Normal S1 and S2, no S3 gallop, no murmur.] Abdomen: [Soft, nontender, no megaly, no rebound, no guarding, normal bowel sounds.] Extremities: [No clubbing, no edema, no cyanosis.] Neurological Exam: [No focal neurologic deficit.] Alert and oriented 3, no gross focal deficit Psychiatric: Normal mood affect and normal mental status examination. Neurologic: Alert oriented 3 no gross focal deficits. Skin: No rashes. 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 Patient is status post CT-guided bone fine-needle aspiration and core biopsy of sacral mass postoperative day #2 Ex-smoker patient quit smoking about 18 years ago. Acute exacerbation of COPD Benign essential hypertension History of bariatric surgery/sleeve gastrectomy in 2018. Recommendation: Radiation treatment has been started, sacral biopsy is pending. Awaiting pathology report from sacral biopsy Pain management as per primary care physician Continue bronchodilators. For her underlying COPD Will follow Time with Patient: Less than 30
--- NOTE | 2022-01-18 14:13 | P.PN ---
Subjective Progress Note Date: 01/18/22 Patient is seen today resting comfortably sitting on the side of the bed talking on the phone. She denies shortness of breath or chest pain. Heart rate is been well-controlled on the monitor and 70 80 bpm. Eliquis remains on hold and will be restarted when feasible surgery. Objective - Vital Signs Vital signs: Vital Signs Temp 97.9 F 01/18/22 04:00 Pulse 73 01/18/22 12:00 Resp 16 01/18/22 12:00 BP 107/57 01/18/22 12:00 Pulse Ox 93 L 01/18/22 12:00 FiO2 Intake & Output 01/17/22 01/18/22 01/18/22 18:59 06:59 18:59 Intake Total 690 240 Output Total 200 Balance 690 40 Weight 84.822 kg Intake: Intake, IV Titration 450 Amount Sodium Chloride 0.9% 1, 450 000 ml @ 75 mls/hr IV . [id number] [facility] Rx#:[id number] Oral 240 240 Output: Urine 200 Other: Voiding Method Toilet Toilet Toilet # Voids 1 - Exam PHYSICAL EXAM: VITAL SIGNS: Reviewed. GENERAL: Well-developed in no acute distress. HEENT: Head is normocephalic. Pupils are equal, round. Sclerae anicteric. Mucous membranes of the mouth are moist. NECK: Supple. No JVD or thyromegaly RESPIRATORY: Respirations even and unlabored. Lungs diminished to auscultation bilaterally. CARDIO: irregular rate and rhythm. S1 and S2 heard. No murmur or gallops. EXTREMITIES: Normal range of motion. No clubbing or cyanosis. Peripheral p ulses intact. Negative for bilateral lower extremity edema NEURO: Orientated to person, time, mood is appropriate - Labs CBC & Chem 7: 01/18/22 10:08 01/18/22 10:08 Labs: Abnormal Lab Results - Last 24 Hours (Table) 01/18/22 01/18/22 Range/Units 10:08 10:08 Hgb 10.4 L (11.4-16.0) gm/dL MCHC 30.4 L (31.0-37.0) g/dL Lymphocytes # 0.9 L (1.0-4.8) k/uL Glucose 107 H (74-99) mg/dL Microbiology - Last 24 Hours (Table) 01/12/22 18:00 Blood Culture - Preliminary Blood No Growth after 120 hours 01/12/22 17:45 Blood Culture - Preliminary Blood No Growth after 120 hours Assessment and Plan Assessment: Persistent atrial fibrillation with a controlled ventricle rate Plan: Continue with all current cardiac medications Resume oral anticoagulation when feasible by surgery Further recommendations based on clinical course The above impression and plan of care have been discussed and directed by the signing physician. Priti Arredondo, nurse practitioner, acting as scribe for signing physician.
--- NOTE | 2022-01-18 14:20 | P.PN ---
Subjective Progress Note Date: 01/18/22 Gracie Ybarra, is a 76 year-old female who presented to [facility] with a chief complaint of low back pain, and constipation, patient was recently diagnosed with lung cancer she was also diagnosed with atrial fibrillation recently, she is followed by pulmonary and cardiology as outpatient. Patient was evaluated in the emergency room CT angiogram of the chest revealed no evidence of pulmonary embolism however she had multiple abnormalities consistent with tumor with cavitating mass in the right lower lobe and also left side paraspinal mass, she was admitted to medical floor, consultation for pulmonary, and pain management was initiated. On review of system patient is alert and oriented 3 in no apparent distress she is complaining of low back pain otherwise she denies any complaints there is no fever or chills no headache or dizziness no chest pain no shortness of breath no cough no nausea or vomiting no diarrhea stools no burning with urination no frequency or urgency no hematuria On 01/14/2022 patient was seen and examined on the medical floor she is complaining of low back pain, she is also complaining of cough and mild shortness of breath otherwise she denies any complaints there is no fever or chills no headache or dizziness no chest pain no nausea or vomiting no abdominal pain no diarrhea and no urinary symptoms, input from pulmonary and oncology reviewed, awaiting tissue diagnosis, will follow closely On 01/15/2022 patient is alert and oriented 3. Patient still complaining of lower back discomfort. Plans for CT-guided biopsy of the lumbar spine today. Patient denies chest pain or shortness breath. Patient denies nausea vomiting diarrhea. Patient denies any urinary burning or frequency. On 01/16/2022 patient was seen and examined on the medical floor she is alert and oriented 3 in no apparent distress, there is no fever or chills no headache or dizziness, she reports improvement in her shortness of breath and cough she denies any chest pain there is no nausea or vomiting no abdominal pain no diarrhea and no urinary symptoms, she underwent CT-guided bone fine-needle aspiration and core biopsy of the sacral area. On 01/17/2022 patient is alert and oriented 3. Patient remains on IV Cardizem drip. Discussed with nursing staff to address anticoagulation with cardiology services. Patient denies chest pain or shortness of breath. Patient denies nausea vomiting or diarrhea. Patient denies any urinary burning or frequency On 01/18/2022 patient was seen and examined on the telemetry floor she is alert and oriented 3 in no apparent distress she is still complaining of severe pain and complaining of constipation otherwise she denies any complaints there is no fever or chills no headache or dizziness no chest pain no shortness of breath no cough no nausea or vomiting no abdominal pain no diarrhea and no urinary symptoms, patient was started on radiation therapy for sacral mass, she is scheduled for a second treatment of radiation therapy on Thursday Objective - Vital Signs Vital signs: Vital Signs Temp 97.9 F 01/18/22 04:00 Pulse 61 01/18/22 04:00 Resp 17 01/18/22 04:00 BP 148/56 01/18/22 04:00 Pulse Ox 96 01/18/22 04:00 FiO2 Intake & Output 01/17/22 01/18/22 01/18/22 18:59 06:59 18:59 Intake Total 690 240 Output Total 200 Balance 690 40 Weight 84.822 kg Intake: Intake, IV Titration 450 Amount Sodium Chloride 0.9% 1, 450 000 ml @ 75 mls/hr IV . [id number] [facility] Rx#:[id number] Oral 240 240 Output: Urine 200 Other: Voiding Method Toilet Toilet # Voids 1 - Exam In general patient is alert and oriented x 3 in no distress HEENT head normocephalic and atraumatic Neck is supple no JVD no goiter no lymphadenopathy no carotid bruit Chest examination is clear to auscultation no crackles no wheezing Cardiac exam reveals regular heart sounds S1 and S2 no gallops no murmurs Abdomen is soft nontender no organomegaly with normal bowel sounds Extremity exam reveals no edema no cyanosis or clubbing Neurological examination reveals no gross focal deficits - Labs CBC & Chem 7: 01/18/22 10:08 01/18/22 10:08 Labs: Abnormal Lab Results - Last 24 Hours (Table) 01/17/22 Range/Units 07:38 Hgb 10.7 L (11.4-16.0) gm/dL Hct 33.2 L (34.0-46.0) % Microbiology - Last 24 Hours (Table) 01/12/22 18:00 Blood Culture - Preliminary Blood No Growth after 120 hours 01/12/22 17:45 Blood Culture - Preliminary Blood No Growth after 120 hours Assessment and Plan Plan: Intractable back pain Constipation likely related to the use of hydrocodone Recent diagnosis of lung cancer Recent diagnosis of atrial fibrillation Underlying history of hypertension Underlying history of degenerative disc disease At this time patient is admitted to medical floor, Home medications reviewed and reordered Pulmonary cardiology and pain management services were consulted Plans for CT-guided biopsy of the lumbar spine 01/15/2022 Anticoagulation to be addressed per cardiology services Patient remains on IV Cardizem Will follow closely
[2022-01-18] MEDS: AMIODARONE 200 MG TAB PO SCH (19:48)
[2022-01-18] MEDS: SENNOSIDES-DOCUSATE SODIUM 1 EACH TAB PO SCH (19:48)
[2022-01-18] MEDS: DILTIAZEM 125 MG in SODIUM CHLORIDE 0.9% 100 ML IV SCH (19:49)
[2022-01-19 01:45] LABS: Glucose,Whole Blood 90 mg/dL (70-110)
[2022-01-19] MEDS: HYDROcodone/APAP 10-325MG 1 EACH TAB PO PRN ×4 (01:48→21:32)
[2022-01-19] MEDS: PANTOPRAZOLE 40 MG TABLET PO SCH (06:32)
[2022-01-19] MEDS: HYDROmorphone 1 MG/ML 1 ML SYRINGE IVP PRN ×4 (06:32→18:45)
[2022-01-19] MEDS: SYMBICORT 160-4.5 MCG INHALER INHALATION SCH ×2 (07:34→20:54)
[2022-01-19] MEDS: amLODIPine 5 MG TAB PO SCH (09:53)
[2022-01-19] MEDS: LIDOCAINE 5% PATCH TOPICAL SCH (09:53)
[2022-01-19] MEDS: AMIODARONE 200 MG TAB PO SCH ×2 (09:53→21:32)
[2022-01-19] MEDS: METOPROLOL TARTRATE 50 MG TAB PO SCH ×2 (09:53→21:32)
[2022-01-19] MEDS: PSYLLIUM HUSK 100% 6 GM PACKET PO SCH (09:53)
[2022-01-19 09:58] LABS: ALT 17 U/L (4-34); AST 29 U/L (14-36); African American GFR (CKD) >90 (>60 ml/min/1.73 sqM); Albumin 3.1 g/dL (3.5-5.0); Alkaline Phosphatase 99 U/L (38-126); Anion Gap 7 mmol/L; Blood Urea Nitrogen 13 mg/dL (7-17); Calcium 8.2 mg/dL (8.4-10.2); Carbon Dioxide 24 mmol/L (22-30); Chloride 108 mmol/L (98-107); Glucose 102 mg/dL (74-99); Non-African American GFR(CKD) 88 (>60 ml/min/1.73 sqM); Potassium 4.3 mmol/L (3.5-5.1); Sodium 139 mmol/L (137-145); Total Bilirubin 0.6 mg/dL (0.2-1.3); Total Protein 5.8 g/dL (6.3-8.2)
[2022-01-19 10:34] LABS: Basophils % (A) 0 %; Eosinophils # (A) 0.1 k/uL (0-0.7); Eosinophils % (A) 2 %; HCT 33.2 % (34.0-46.0); HGB 10.6 gm/dL (11.4-16.0); Hypochromasia Slight; Lymphocytes # (A) 0.7 k/uL (1.0-4.8); Lymphocytes % (A) 10 %; MCH 27.9 pg (25.0-35.0); MCHC 31.8 g/dL (31.0-37.0); Monocytes # (A) 0.4 k/uL (0-1.0); Monocytes % (A) 5 %; Neutrophils % (A) 80 %; Platelet Count 178 k/uL (150-450); RBC 3.78 m/uL (3.80-5.40); RDW 13.4 % (11.5-15.5); WBC 7.5 k/uL (3.8-10.6)
--- NOTE | 2022-01-19 11:04 | P.PN ---
Subjective Progress Note Date: 01/19/22 Gracie Ybarra, is a 76 year-old female who presented to [facility] with a chief complaint of low back pain, and constipation, patient was recently diagnosed with lung cancer she was also diagnosed with atrial fibrillation recently, she is followed by pulmonary and cardiology as outpatient. Patient was evaluated in the emergency room CT angiogram of the chest revealed no evidence of pulmonary embolism however she had multiple abnormalities consistent with tumor with cavitating mass in the right lower lobe and also left side paraspinal mass, she was admitted to medical floor, consultation for pulmonary, and pain management was initiated. On review of system patient is alert and oriented 3 in no apparent distress she is complaining of low back pain otherwise she denies any complaints there is no fever or chills no headache or dizziness no chest pain no shortness of breath no cough no nausea or vomiting no diarrhea stools no burning with urination no frequency or urgency no hematuria On 01/14/2022 patient was seen and examined on the medical floor she is complaining of low back pain, she is also complaining of cough and mild shortness of breath otherwise she denies any complaints there is no fever or chills no headache or dizziness no chest pain no nausea or vomiting no abdominal pain no diarrhea and no urinary symptoms, input from pulmonary and oncology reviewed, awaiting tissue diagnosis, will follow closely On 01/15/2022 patient is alert and oriented 3. Patient still complaining of lower back discomfort. Plans for CT-guided biopsy of the lumbar spine today. Patient denies chest pain or shortness breath. Patient denies nausea vomiting diarrhea. Patient denies any urinary burning or frequency. On 01/16/2022 patient was seen and examined on the medical floor she is alert and oriented 3 in no apparent distress, there is no fever or chills no headache or dizziness, she reports improvement in her shortness of breath and cough she denies any chest pain there is no nausea or vomiting no abdominal pain no diarrhea and no urinary symptoms, she underwent CT-guided bone fine-needle aspiration and core biopsy of the sacral area. On 01/17/2022 patient is alert and oriented 3. Patient remains on IV Cardizem drip. Discussed with nursing staff to address anticoagulation with cardiology services. Patient denies chest pain or shortness of breath. Patient denies nausea vomiting or diarrhea. Patient denies any urinary burning or frequency On 01/18/2022 patient was seen and examined on the telemetry floor she is alert and oriented 3 in no apparent distress she is still complaining of severe pain and complaining of constipation otherwise she denies any complaints there is no fever or chills no headache or dizziness no chest pain no shortness of breath no cough no nausea or vomiting no abdominal pain no diarrhea and no urinary symptoms, patient was started on radiation therapy for sacral mass, she is scheduled for a second treatment of radiation therapy on Thursday On 01/19/2022 patient's alert and oriented 3. Per nursing staff patient had a fall early this a.m. Patient did not hit her head. Patient also in and A. fib with RVR requiring IV Cardizem patient has converted back currently off Cardizem drip. Patient still having pain to back at this time. Plans for radiation tomorrow. Cardiology services following. Patient denies chest pain or shortness breath. Patient denies nausea vomiting or diarrhea. Patient denies any urinary burning or frequency. Objective - Vital Signs Vital signs: Vital Signs Temp 97.7 F 01/19/22 04:00 Pulse 130 H 01/19/22 04:00 Resp 18 01/19/22 04:00 BP 135/62 01/19/22 04:00 Pulse Ox 92 L 01/19/22 01:45 FiO2 Intake & Output 01/18/22 01/19/22 01/19/22 18:59 06:59 18:59 Intake Total 39.833 50.167 Output Total 1800 Balance -1760.167 50.167 Intake: Intake, IV Titration 39.833 50.167 Amount Diltiazem 125 mg In 39.833 50.167 Sodium Chloride 0.9% 100 ml @ 10 MG/HR 10 mls/hr IV .[id number] [facility] Rx#: [id number] Output: Urine 1800 Straight 850 Other: Voiding Method Toilet Toilet # Voids 1 - Exam In general patient is alert and oriented x 3 in no distress HEENT head normocephalic and atraumatic Neck is supple no JVD no goiter no lymphadenopathy no carotid bruit Chest examination is clear to auscultation no crackles no wheezing Cardiac exam reveals regular heart sounds S1 and S2 no gallops no murmurs Abdomen is soft nontender no organomegaly with normal bowel sounds Extremity exam reveals no edema no cyanosis or clubbing Neurological examination reveals no gross focal deficits - Labs CBC & Chem 7: 01/19/22 09:19 01/19/22 09:19 Labs: Abnormal Lab Results - Last 24 Hours (Table) 01/19/22 01/19/22 Range/Units 09:19 09:19 RBC 3.78 L (3.80-5.40) m/uL Hgb 10.6 L (11.4-16.0) gm/dL Hct 33.2 L (34.0-46.0) % Lymphocytes # 0.7 L (1.0-4.8) k/uL Chloride 108 H (98-107) mmol/L Glucose 102 H (74-99) mg/dL Calcium 8.2 L (8.4-10.2) mg/dL Total Protein 5.8 L (6.3-8.2) g/dL Albumin 3.1 L (3.5-5.0) g/dL Microbiology - Last 24 Hours (Table) 01/12/22 18:00 Blood Culture - Final Blood No Growth after 144 hours 01/12/22 17:45 Blood Culture - Final Blood No Growth after 144 hours Assessment and Plan Assessment: Intractable back pain Constipation likely related to the use of hydrocodone Recent diagnosis of lung cancer Recent diagnosis of atrial fibrillation. Eliquis currently on hold patient is having falls Underlying history of hypertension Underlying history of degenerative disc disease At this time patient is admitted to medical floor, Home medications reviewed and reordered Pulmonary cardiology and pain management services were consulted Plans for CT-guided biopsy of the lumbar spine 01/15/2022 plans for radiation on 01/20/2022 Anticoagulation to be addressed per cardiology services Patient remains on IV Cardizem Will follow closely
[2022-01-19] MEDS: DILTIAZEM 125 MG in SODIUM CHLORIDE 0.9% 100 ML IV SCH (11:06)
[2022-01-19] MEDS: SODIUM CHLORIDE 0.9% 1,000 ML IV SCH ×2 (11:06→21:35)
--- NOTE | 2022-01-19 13:26 | P.PN ---
Subjective Progress Note Date: 01/19/22 Patient seen today resting comfortably in bed in no signs of acute distress. She denies increased shortness of breath or chest pain. Last night patient went into atrial fibrillation with RVR. She was started on a Cardizem Cardizem drip and by mouth amiodarone. Patient is also on Lopressor 50 mg twice a day. She has converted back to sinus rhythm. Will discontinue Cardizem drip and continue with amiodarone and Lopressor. Patient Marlee was on hold post biopsy. Patient underwent a fall last night during the night. Patient reports she did not really fall she slid out of the chair. She does not have a history of frequent falls Will restart Eliquis at this time Objective - Vital Signs Vital signs: Vital Signs Temp 97.2 F L 01/19/22 12:00 Pulse 59 L 01/19/22 12:00 Resp 19 01/19/22 12:00 BP 105/67 01/19/22 12:00 Pulse Ox 96 01/19/22 12:00 FiO2 Intake & Output 01/18/22 01/19/22 01/19/22 18:59 06:59 18:59 Intake Total 39.833 50.167 Output Total 1800 Balance -1760.167 50.167 Intake: Intake, IV Titration 39.833 50.167 Amount Diltiazem 125 mg In 39.833 50.167 Sodium Chloride 0.9% 100 ml @ 10 MG/HR 10 mls/hr IV .[id number] [facility] Rx#: [id number] Output: Urine 1800 Straight 850 Other: Voiding Method Toilet Toilet Toilet # Voids 1 - Exam PHYSICAL EXAM: VITAL SIGNS: Reviewed. GENERAL: Well-developed in no acute distress. HEENT: Head is normocephalic. Pupils are equal, round. Sclerae anicteric. Mucous membranes of the mouth are moist. NECK: Supple. No JVD or thyromegaly RESPIRATORY: Respirations even and unlabored. Lungs diminished to auscultation b ilaterally. CARDIO: irregular rate and rhythm. S1 and S2 heard. No murmur or gallops. EXTREMITIES: Normal range of motion. No clubbing or cyanosis. Peripheral pulses intact. Negative for bilateral lower extremity edema NEURO: Orientated to person, time, mood is appropriate - Labs CBC & Chem 7: 01/19/22 09:19 01/19/22 09:19 Labs: Abnormal Lab Results - Last 24 Hours (Table) 01/19/22 01/19/22 Range/Units 09:19 09:19 RBC 3.78 L (3.80-5.40) m/uL Hgb 10.6 L (11.4-16.0) gm/dL Hct 33.2 L (34.0-46.0) % Lymphocytes # 0.7 L (1.0-4.8) k/uL Chloride 108 H (98-107) mmol/L Glucose 102 H (74-99) mg/dL Calcium 8.2 L (8.4-10.2) mg/dL Total Protein 5.8 L (6.3-8.2) g/dL Albumin 3.1 L (3.5-5.0) g/dL Microbiology - Last 24 Hours (Table) 01/12/22 18:00 Blood Culture - Final Blood No Growth after 144 hours 01/12/22 17:45 Blood Culture - Final Blood No Growth after 144 hours Assessment and Plan Assessment: Persistent atrial fibrillation with a controlled ventricle rate Plan: Discontinue IV Cardizem Continue with amiodarone and Lopressor Restart Eliquis Further recommendations based on clinical course The above impression and plan of care have been discussed and directed by the signing physician. Priti Arredondo, nurse practitioner, acting as scribe for signing physician.
--- NOTE | 2022-01-19 14:03 | P.PN ---
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 This is a 76-year-old female with history of multiple medical problems, patient was seen on consultation back on 12/27/21, and she was felt to have bronchogenic carcinoma. She was seen by Dr. logan performed bronchoscopy, mccallum needle aspirations, endobronchial biopsies, however the pathology came back nondiagnostic. Patient was eventually discharged home after her bronchoscopy and she was supposed to follow-up with me on outpatient basis. Patient was supposed to have a PET scan on outpatient basis also. And neither one of those was done. Patient came to the ER this morning complaining of generalized symptoms of weakness, low back pain, and constipation. Repeat CT of the chest showed multiple abnormalities consistent with bronchogenic carcinoma including a cavitating mass in the right lower lobe, left side paraspinal mass which has increased in size compared to a few weeks ago, and there is also a right upper lobe mass/consolidation which is also increased in size compared to the previous exam. All the findings are pointing to worsening bronchogenic carcinoma. X- rays of lumbar spine showed moderate multilevel disc degeneration. CBC is relatively normal electrolytes are normal, d-dimer is 4.68. Electrolytes and renal profile are normal Reevaluated today on 01/14/22, patient continues to have severe back pain, CT of the abdomen and pelvis today the possibility of metastatic disease to the lumbosacral spine. Patient was seen by oncology, and we discussed over the phone with the oncologist, patient will definitely need a tissue diagnosis, I w as planning to have a repeat bronchoscopy on this patient, but now considering the findings on the lumbar spine, I believe the patient will have a better chance of diagnoses having lumbar biopsy, and in case if it's positive the patient may even need radiation treatment. She will also need MRI of the lumbosacral spine. Pulmonary-[facility] the patient does not have much symptoms except occasional cough and wheezing, but her symptoms seemed to be mostly related to her low back pain and weakness in the legs. CBC today is unremarkable, basic metabolic profile is also unremarkable. Calcium is normal. Reevaluated today on 01/15/22, patient is basically about the same, she is supposedly scheduled to undergo biopsy of her lumbar vertebral, highly suspicious for metastatic disease, this would be done by interventional radiology. Clinically the patient is about the same, continues to have severe back pain, continues to have intermittent cough and wheezing, no fever no chills no hemoptysis and no chest pain. CBC today is relatively unremarkable, basic metabolic profile is normal Reevaluated today on 01/16/22, not much of a change in the last 24 hours, continues to have low back pain, patient underwent CT-guided bone fine-needle aspiration and core biopsy of sacral mass. Results of which are pending. If nondiagnostic, I would definitely proceed to repeat bronchoscopy on this patient. We are strongly suspicious that we are dealing with primarily bronchogenic carcinoma and metastases to the lumbosacral spine Patient is not in her room during my rounds, however I reviewed her workup and her labs from today, we are still waiting for the results of her sacral mass biopsy which was done by interventional radiology. According to the note by her admitting physician, patient remains on the same medications we had her on all along, and she is constipated mostly from narcotics given to her for severe back pain. CBC is relatively normal hemoglobin is 10.7. Reevaluated today on 01/18/22, patient continues to have low back pain. Unfortunately pathology from her sacral mass biopsy is pending. However clinically this is highly suspicious for metastatic lung cancer to the lumbosac ral spine. Patient is on narcotics, not controlling her pain well, pulmonary- [facility] she is doing well, hardly any cough wheezing or shortness of breath at present she seems to be more bothered with her low back pain. Patient did complete radiotherapy treatment directly to the area of the lumbosacral spine. Further workup and biopsy are pending Reevaluated today on 01/19/22, patient is doing well except for low back pain. Hardly any cough no wheezing no shortness of breath at present. Pathology from her sacral mass biopsy is pending. Objective - Vital Signs Vital signs: Vital Signs Temp 97.2 F L 01/19/22 12:00 Pulse 59 L 01/19/22 12:00 Resp 19 01/19/22 12:00 BP 105/67 01/19/22 12:00 Pulse Ox 96 01/19/22 12:00 FiO2 Intake & Output 01/18/22 01/19/22 01/19/22 18:59 06:59 18:59 Intake Total 39.833 50.167 Output Total 1800 Balance -1760.167 50.167 Intake: Intake, IV Titration 39.833 50.167 Amount Diltiazem 125 mg In 39.833 50.167 Sodium Chloride 0.9% 100 ml @ 10 MG/HR 10 mls/hr IV .[id number] [facility] Rx#: [id number] Output: Urine 1800 Straight 850 Other: Voiding Method Toilet Toilet Toilet # Voids 1 - Exam Physical Exam: Revealed 76-year-old female in no distress. Head: Atraumatic, normocephalic. HEENT:[Neck is supple.] [No neck masses.] [No thyromegaly.] [No JVD.] Chest: Scattered rhonchi noted bilaterally more so on forced expiratory maneuver. Cardiac Exam: [Normal S1 and S2, no S3 gallop, no murmur.] Abdomen: [Soft, nontender, no megaly, no rebound, no guarding, normal bowel sounds.] Extremities: [No clubbing, no edema, no cyanosis.] Neurological Exam: [No focal neurologic deficit.] Alert and oriented 3, no gross focal deficit Psychiatric: Normal mood affect and normal mental status examination. Neurologic: Alert oriented 3 no gross focal deficits. Skin: No rashes. - Labs CBC & Chem 7: 01/19/22 09:19 01/19/22 09:19 Labs: Abnormal Lab Results - Last 24 Hours (Table) 01/19/22 01/19/22 Range/Units 09:19 09:19 RBC 3.78 L (3.80-5.40) m/uL Hgb 10.6 L (11.4-16.0) gm/dL Hct 33.2 L (34.0-46.0) % Lymphocytes # 0.7 L (1.0-4.8) k/uL Chloride 108 H (98-107) mmol/L Glucose 102 H (74-99) mg/dL Calcium 8.2 L (8.4-10.2) mg/dL Total Protein 5.8 L (6.3-8.2) g/dL Albumin 3.1 L (3.5-5.0) g/dL Microbiology - Last 24 Hours (Table) 01/12/22 18:00 Blood Culture - Final Blood No Growth after 144 hours 01/12/22 17:45 Blood Culture - Final Blood No Growth after 144 hours Assessment and Plan Assessment: Advanced bronchogenic carcinoma, 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 Patient is status post CT-guided bone fine-needle aspiration and core biopsy of sacral mass postoperative day # 3 Ex-smoker patient quit smoking about 18 years ago. Acute exacerbation of COPD Benign essential hypertension History of bariatric surgery/sleeve gastrectomy in 2018. Recommendation: Radiation treatment has been started, sacral biopsy is pending. Awaiting pathology report from sacral biopsy Pain management as per primary care physician Continue bronchodilators. For her underlying COPD Will follow Time with Patient: Less than 30
[2022-01-19] MEDS: MAGNESIUM HYDROXIDE 2,400 MG/10 ML CUP PO PRN (16:20)
[2022-01-19] MEDS: APIXABAN 5 MG TAB PO SCH (21:32)
[2022-01-19] MEDS: SENNOSIDES-DOCUSATE SODIUM 1 EACH TAB PO SCH (21:32)
[2022-01-20] MEDS: HYDROmorphone 1 MG/ML 1 ML SYRINGE IVP PRN ×4 (00:03→12:46)
[2022-01-20] MEDS: ALPRAZolam 0.25 MG TAB PO PRN ×2 (00:04→13:14)
[2022-01-20] MEDS: HYDROcodone/APAP 10-325MG 1 EACH TAB PO PRN ×3 (03:57→21:25)
[2022-01-20] MEDS: bisacodyL 10 MG SUPP RECTAL PRN (04:08)
[2022-01-20] MEDS: MAGNESIUM HYDROXIDE 2,400 MG/10 ML CUP PO PRN (04:08)
[2022-01-20] MEDS: PANTOPRAZOLE 40 MG TABLET PO SCH (04:09)
[2022-01-20] MEDS: SYMBICORT 160-4.5 MCG INHALER INHALATION SCH ×2 (08:35→20:21)
[2022-01-20] MEDS: AMIODARONE 200 MG TAB PO SCH ×2 (09:15→21:14)
[2022-01-20] MEDS: METOPROLOL TARTRATE 50 MG TAB PO SCH ×2 (09:15→21:14)
[2022-01-20] MEDS: amLODIPine 5 MG TAB PO SCH (09:15)
[2022-01-20] MEDS: APIXABAN 5 MG TAB PO SCH ×2 (09:15→21:14)
[2022-01-20] MEDS: PSYLLIUM HUSK 100% 6 GM PACKET PO SCH ×2 (09:15→12:10)
[2022-01-20] MEDS: LIDOCAINE 5% PATCH TOPICAL SCH (09:16)
[2022-01-20] MEDS ORDERED: NA PHOS,M-B/NA PHOS,DI-BA 133 ML ENEMA RECTAL STA (09:41)
[2022-01-20 12:04] LABS: ALT 21 U/L (4-34); AST 40 U/L (14-36); African American GFR (CKD) >90 (>60 ml/min/1.73 sqM); Albumin 3.7 g/dL (3.5-5.0); Alkaline Phosphatase 125 U/L (38-126); Anion Gap 11 mmol/L; Blood Urea Nitrogen 17 mg/dL (7-17); Calcium 8.8 mg/dL (8.4-10.2); Carbon Dioxide 23 mmol/L (22-30); Chloride 104 mmol/L (98-107); Glucose 97 mg/dL (74-99); Non-African American GFR(CKD) 82 (>60 ml/min/1.73 sqM); Potassium 4.7 mmol/L (3.5-5.1); Sodium 138 mmol/L (137-145); Total Bilirubin 0.7 mg/dL (0.2-1.3); Total Protein 7.1 g/dL (6.3-8.2)
--- NOTE | 2022-01-20 12:06 | P.PN ---
Subjective This is a 76 year old female with a past medical history of hypertension, osteoarthritis, paroxysmal atrial fibrillation on Eliquis, Suspicious primary lung carcinoma. She follows in the office with Dr. Celis. We are consulted for A. fib with RVR. Patient presents emergency department with complaints of generalized weakness, low back pain and constipation. She was found to be in A. fib with RVR, and cardiology was consulted. She is being evaluated for bronchogenic carcinoma and 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 Patient underwent CT-guided bone fine- needle aspiration and core biopsy of sacral mass on 01/15/2022. Patient seen and examined at bedside, no acute distress. She is back in sinus rhythm, heart rates in the 60s. Her vital signs are stable. Lungs are clear. She does endorse some back pain. She was started on by mouth amiodarone 01/18. Her echocardiogram revealed EF 55%, moderate aortic regurgitation, mild mitral and mild to moderate tricuspid regurgitation. GENERAL: Well-appearing, well-nourished and in no acute distress. NECK: Supple without JVD LUNGS: Breath sounds clear to auscultation bilaterally. Respiration equal and unlabored. No wheezes, rales or rhonchi. HEART: Regular rate and rhythm without murmurs, rubs or gallops. S1 and S2 heard. EXTREMITIES: Normal range of motion, no edema. No clubbing or cyanosis. Peripheral pulses intact. ASSESSMENT Paroxysmal atrial fibrillation with rapid ventricular response, on Eliquis Hypertension Osteoarthritis Advanced bronchogenic carcinoma, concerning for skeletal metastasis to the lumbosacral spine s/pCT-guided bone fine-needle aspiration and core biopsy of sacral mass on 01/15 PLAN From cardiology perspective, patient is stable. Maintaining sinus mechanism. Patient may be discharged when cleared by primary and other consultants. Continue amiodarone taper Continue Eliquis anticoagulation Continue metoprolol tartrate Follow up outpatient with Dr. Celis Please reach out with any further questions or concerns Nurse Practitioner note has been reviewed, I agree with a documented findings and plan of care. Patient was seen and examined. Objective - Vital Signs Vital signs: Vital Signs Temp 98.1 F 01/20/22 08:00 Pulse 71 01/20/22 08:00 Resp 18 01/20/22 08:00 BP 149/55 01/20/22 08:00 Pulse Ox 97 01/20/22 08:00 FiO2 Intake & Output 12/04/22 12/05/22 12/05/22 18:59 06:59 18:59 Intake Total 50.167 10 120 Output Total 500 Balance 50.167 10 -380 Intake: IV 10 Invasive Line 6 10 Intake, IV Titration 50.167 Amount Diltiazem 125 mg In 50.167 Sodium Chloride 0.9% 100 ml @ 10 MG/HR 10 mls/hr IV .[id number] [facility] Rx#: [id number] Oral 120 Output: Urine 500 Straight 500 Other: Voiding Method Toilet Toilet Toilet # Voids 1 1 - Labs CBC & Chem 7: 01/19/22 09:19 01/19/22 09:19
[2022-01-20 12:41] LABS: Basophils % (A) 0 %; Eosinophils # (A) 0.3 k/uL (0-0.7); Eosinophils % (A) 2 %; HCT 35.5 % (34.0-46.0); HGB 11.1 gm/dL (11.4-16.0); Hypochromasia Moderate; Lymphocytes # (A) 0.7 k/uL (1.0-4.8); Lymphocytes % (A) 6 %; MCH 28.1 pg (25.0-35.0); MCHC 31.2 g/dL (31.0-37.0); Mean Platelet Volume 9.8; Monocytes # (A) 0.5 k/uL (0-1.0); Monocytes % (A) 4 %; Neutrophils # (A) 9.3 k/uL (1.3-7.7); Neutrophils % (A) 85 %; Platelet Count 189 k/uL (150-450); RBC 3.94 m/uL (3.80-5.40); RDW 13.3 % (11.5-15.5)
[2022-01-20] MEDS ORDERED: HYDROmorphone 1 MG/ML 1 ML SYRINGE IM PRN (13:52)
--- NOTE | 2022-01-20 14:49 | P.PN ---
Subjective Progress Note Date: 01/20/22 Principal diagnosis: Back pain. Reevaluated today on 01/16/22, not much of a change in the last 24 hours, continues to have low back pain, patient underwent CT-guided bone fine-needle aspiration and core biopsy of sacral mass. Results of which are pending. If nondiagnostic, I would definitely proceed to repeat bronchoscopy on this patient. We are strongly suspicious that we are dealing with primarily bronchogenic carcinoma and metastases to the lumbosacral spine Patient is not in her room during my rounds, however I reviewed her workup and her labs from today, we are still waiting for the results of her sacral mass biopsy which was done by interventional radiology. According to the note by her admitting physician, patient remains on the same medications we had her on all along, and she is constipated mostly from narcotics given to her for severe back pain. CBC is relatively normal hemoglobin is 10.7. Reevaluated today on 01/18/22, patient continues to have low back pain. Unfortunately pathology from her sacral mass biopsy is pending. However clinically this is highly suspicious for metastatic lung cancer to the lumbosacral spine. Patient is on narcotics, not controlling her pain well, pulmonary-[facility] she is doing well, hardly any cough wheezing or shortness of breath at present she seems to be more bothered with her low back pain. Patient did complete radiotherapy treatment directly to the area of the lumbosacral spine. Further workup and biopsy are pending Reevaluated today on 01/19/22, patient is doing well except for low back pain. Hardly any cough no wheezing no shortness of breath at present. Pathology from her sacral mass biopsy is pending. Progress note dated 01/28/2022. The patient recently had a biopsy, but the results are currently pending. The patient on is currently on room air. Saturations are fine. No respiratory dist ress or difficulty. Laboratory data includes a white count of 11, hemoglobin 11.1, hematocrit 35.5, with a normal platelet count. Sodium 138, potassium 4.7, chlorides 104, CO2 23, BUN 17, creatinine 0.71. Lumbosacral lesion biopsy, is consistent with metastatic pulmonary adenocarcinoma. Objective - Vital Signs Vital signs: Vital Signs Temp 98.4 F 01/20/22 12:00 Pulse 64 01/20/22 12:00 Resp 16 01/20/22 12:00 BP 145/57 01/20/22 12:00 Pulse Ox 98 01/20/22 12:00 FiO2 Intake & Output 01/19/22 01/20/22 01/20/22 18:59 06:59 18:59 Intake Total 50.167 10 240 Output Total 500 Balance 50.167 10 -260 Intake: IV 10 Invasive Line 6 10 Intake, IV Titration 50.167 Amount Diltiazem 125 mg In 50.167 Sodium Chloride 0.9% 100 ml @ 10 MG/HR 10 mls/hr IV .[id number] [facility] Rx#: [id number] Oral 240 Output: Urine 500 Straight 500 Other: Voiding Method Toilet Toilet Toilet # Voids 1 1 # Bowel Movements 1 - Exam No acute distress, oriented 3. Currently on room air. No respiratory distress. HEENT examination is grossly unremarkable. Neck supple. Full range of motion. No adenopathy thyromegaly or neck vein distention. Cardiovascular examination reveals regular rhythm rate. S1-S2 normal. No S3 or S4. No discernible murmur noted. Lungs reveal mild scattered rhonchi. No wheezes or crackles. Room air saturation 95%. Abdomen soft bowel sounds are heard. No masses or tenderness. Extremities are intact. No cyanosis clubbing or edema. Skin is without rash or lesion. Neurologic examination is brief but nonfocal. - Labs CBC & Chem 7: 01/20/22 10:49 01/20/22 10:49 Labs: Abnormal Lab Results - Last 24 Hours (Table) 01/20/22 01/20/22 Range/Units 10:49 10:49 WBC 11.0 H (3.8-10.6) k/uL Hgb 11.1 L (11.4-16.0) gm/dL Neutrophils # 9.3 H (1.3-7.7) k/uL Lymphocytes # 0.7 L (1.0-4.8) k/uL AST 40 H (14-36) U/L Assessment and Plan Assessment: Advanced bronchogenic carcinoma, with skeletal metastasis, and biopsy consistent with metastatic pulmonary adenocarcinoma. Previous history of tobacco use. History of COPD. Hypertension. History of bariatric surgery for obesity, 2018. Plan: Plan dated 01/20/2022. The patient has started radiation treatment for her presumed skeletal metastasis. Biopsies were positive for metastatic pulmonary adenocarcinoma. Pain management per the primary care physician. Air saturations are excellent. No additional recommendations are made. Prognosis is certainly guarded. Labs, x-rays, and medications are all reviewed. Time with Patient: Less than 30
[2022-01-20] MEDS: HYDROmorphone 2 MG TAB PO PRN (16:07)
[2022-01-20] MEDS: SENNOSIDES-DOCUSATE SODIUM 1 EACH TAB PO SCH ×2 (16:07→21:19)
--- NOTE | 2022-01-20 17:04 | P.PN ---
Subjective Progress Note Date: 01/20/22 Gracie Ybarra, is a 76 year-old female who presented to [facility] with a chief complaint of low back pain, and constipation, patient was recently diagnosed with lung cancer she was also diagnosed with atrial fibrillation recently, she is followed by pulmonary and cardiology as outpatient. Patient was evaluated in the emergency room CT angiogram of the chest revealed no evidence of pulmonary embolism however she had multiple abnormalities consistent with tumor with cavitating mass in the right lower lobe and also left side paraspinal mass, she was admitted to medical floor, consultation for pulmonary, and pain management was initiated. On review of system patient is alert and oriented 3 in no apparent distress she is complaining of low back pain otherwise she denies any complaints there is no fever or chills no headache or dizziness no chest pain no shortness of breath no cough no nausea or vomiting no diarrhea stools no burning with urination no frequency or urgency no hematuria On 01/14/2022 patient was seen and examined on the medical floor she is complaining of low back pain, she is also complaining of cough and mild shortness of breath otherwise she denies any complaints there is no fever or chills no headache or dizziness no chest pain no nausea or vomiting no abdominal pain no diarrhea and no urinary symptoms, input from pulmonary and oncology reviewed, awaiting tissue diagnosis, will follow closely On 01/15/2022 patient is alert and oriented 3. Patient still complaining of lower back discomfort. Plans for CT-guided biopsy of the lumbar spine today. Patient denies chest pain or shortness breath. Patient denies nausea vomiting diarrhea. Patient denies any urinary burning or frequency. On 01/16/2022 patient was seen and examined on the medical floor she is alert and oriented 3 in no apparent distress, there is no fever or chills no headache or dizziness, she reports improvement in her shortness of breath and cough she denies any chest pain there is no nausea or vomiting no abdominal pain no diarrhea and no urinary symptoms, she underwent CT-guided bone fine-needle aspiration and core biopsy of the sacral area. On 01/17/2022 patient is alert and oriented 3. Patient remains on IV Cardizem drip. Discussed with nursing staff to address anticoagulation with cardiology services. Patient denies chest pain or shortness of breath. Patient denies nausea vomiting or diarrhea. Patient denies any urinary burning or frequency On 01/18/2022 patient was seen and examined on the telemetry floor she is alert and oriented 3 in no apparent distress she is still complaining of severe pain and complaining of constipation otherwise she denies any complaints there is no fever or chills no headache or dizziness no chest pain no shortness of breath no cough no nausea or vomiting no abdominal pain no diarrhea and no urinary symptoms, patient was started on radiation therapy for sacral mass, she is scheduled for a second treatment of radiation therapy on Thursday On 01/19/2022 patient's alert and oriented 3. Per nursing staff patient had a fall early this a.m. Patient did not hit her head. Patient also in and A. fib with RVR requiring IV Cardizem patient has converted back currently off Cardizem drip. Patient still having pain to back at this time. Plans for radiation tomorrow. Cardiology services following. Patient denies chest pain or shortness breath. Patient denies nausea vomiting or diarrhea. Patient denies any urinary burning or frequency. On 01/20/2022 patient was seen and examined on the medical floor she is alert and oriented 3 in no apparent distress she is still complaining of low back pain otherwise she denies any complaints there is no fever or chills no headache or dizziness no chest pain no shortness of breath no cough no nausea or vomiting no abdominal pain no diarrhea and no urinary symptoms. Patient received a radiation treatment today, at this point Will consult pain services to evaluate pain management continue with current medication otherwise Objective - Vital Signs Vital signs: Vital Signs Temp 98.6 F 01/20/22 04:00 Pulse 64 01/20/22 04:00 Resp 18 01/20/22 04:00 BP 124/56 01/20/22 04:00 Pulse Ox 96 01/20/22 04:00 FiO2 Intake & Output 01/19/22 01/20/22 01/20/22 18:59 06:59 18:59 Intake Total 50.167 10 120 Balance 50.167 10 120 Intake: IV 10 Invasive Line 6 10 Intake, IV Titration 50.167 Amount Diltiazem 125 mg In 50.167 Sodium Chloride 0.9% 100 ml @ 10 MG/HR 10 mls/hr IV .[id number] [facility] Rx#: [id number] Oral 120 Other: Voiding Method Toilet Toilet # Voids 1 1 - Exam In general patient is alert and oriented x 3 in no distress HEENT head normocephalic and atraumatic Neck is supple no JVD no goiter no lymphadenopathy no carotid bruit Chest examination is clear to auscultation no crackles no wheezing Cardiac exam reveals regular heart sounds S1 and S2 no gallops no murmurs Abdomen is soft nontender no organomegaly with normal bowel sounds Extremity exam reveals no edema no cyanosis or clubbing Neurological examination reveals no gross focal deficits - Labs CBC & Chem 7: 01/20/22 10:49 01/20/22 10:49 Labs: Abnormal Lab Results - Last 24 Hours (Table) 01/19/22 01/19/22 Range/Units 09:19 09:19 RBC 3.78 L (3.80-5.40) m/uL Hgb 10.6 L (11.4-16.0) gm/dL Hct 33.2 L (34.0-46.0) % Lymphocytes # 0.7 L (1.0-4.8) k/uL Chloride 108 H (98-107) mmol/L Glucose 102 H (74-99) mg/dL Calcium 8.2 L (8.4-10.2) mg/dL Total Protein 5.8 L (6.3-8.2) g/dL Albumin 3.1 L (3.5-5.0) g/dL Assessment and Plan Plan: Intractable back pain Constipation likely related to the use of hydrocodone Recent diagnosis of lung cancer Recent diagnosis of atrial fibrillation Underlying history of hypertension Underlying history of degenerative disc disease At this time patient is admitted to medical floor, Home medications reviewed and reordered Pulmonary cardiology and pain management services were consulted Plans for CT-guided biopsy of the lumbar spine 01/15/2022 Anticoagulation to be addressed per cardiology services Patient remains on IV Cardizem Will follow closely
[2022-01-20] MEDS ORDERED: SENNOSIDES 8.6 MG TAB PO SCH (21:00)
[2022-01-20] MEDS: polyethylene glycoL 3350 17 GM POWD.PACK PO SCH (21:18)
--- NOTE | 2022-01-20 21:22 | P.PN ---
Subjective Progress Note Date: 01/20/22 Principal diagnosis: intractable pain, malignancy of unknown primary In f/u today pt has c/o of persistent low back pain, current analgesic regimen "takes the edge off" but only for a short period of time. She is voicing frustration that there is no diagnosis yet. She wanted to discuss what treatment would be like, prognosis. She is constipated. Objective - Vital Signs Vital signs: Vital Signs Temp 98.4 F 01/20/22 12:00 Pulse 64 01/20/22 12:00 Resp 16 01/20/22 12:00 BP 145/57 01/20/22 12:00 Pulse Ox 98 01/20/22 12:00 FiO2 Intake & Output 01/19/22 01/20/22 01/20/22 18:59 06:59 18:59 Intake Total 50.167 10 240 Output Total 500 Balance 50.167 10 -260 Intake: IV 10 Invasive Line 6 10 Intake, IV Titration 50.167 Amount Diltiazem 125 mg In 50.167 Sodium Chloride 0.9% 100 ml @ 10 MG/HR 10 mls/hr IV .[id number] [facility] Rx#: [id number] Oral 240 Output: Urine 500 Straight 500 Other: Voiding Method Toilet Toilet Toilet # Voids 1 1 # Bowel Movements 1 - Constitutional General appearance: Present: average body habitus, cooperative, mild distress - EENT Eyes: Present: anicteric sclerae, EOMI ENT: Present: hearing grossly normal - Respiratory Details: resp even and unlabored at rest - Peripheral edema leg Peripheral Edema: bilateral: Trace - Integumentary Integumentary: Present: normal - Neurologic Neurologic: Present: CNII-XII intact (grossly) - Musculoskeletal Musculoskeletal: Present: generalized weakness - Psychiatric Psychiatric: Present: A&O x's 3, appropriate affect, intact judgment & insight - Labs CBC & Chem 7: 01/20/22 10:49 01/20/22 10:49 Labs: Abnormal Lab Results - Last 24 Hours (Table) 01/20/22 01/20/22 Range/Units 10:49 10:49 WBC 11.0 H (3.8-10.6) k/uL Hgb 11.1 L (11.4-16.0) gm/dL Neutrophils # 9.3 H (1.3-7.7) k/uL Lymphocytes # 0.7 L (1.0-4.8) k/uL AST 40 H (14-36) U/L Assessment and Plan (1) Adenocarcinoma, lung Current Visit: Yes Status: Acute Code(s): C34.90 - MALIGNANT NEOPLASM OF UNSP PART OF UNSP BRONCHUS OR LUNG SNOMED Code(s): 746456319 (2) Intractable low back pain Current Visit: Yes Status: Acute Code(s): M54.59 - OTHER LOW BACK PAIN SNOMED Code(s): 56714620928087495 (3) Lung mass Current Visit: No Status: Acute Priority: High Code(s): R91.8 - OTHER NONSPECIFIC ABNORMAL FINDING OF LUNG FIELD SNOMED Code(s): 921586706 Plan: Made adjustments to pt pain med regimen to see if any relief can be had. Encouraged pt to cont with radiation to the sacral lesions though, benefits may not be felt for 10-14 days. Pending bone biopsy resultsresults reported later in the day. Lung adenoca rcinoma primary. Will request tissue to be sent for NGS and PD-L1 testing. Will discuss further with pt tomorrow. We reviewed the difference between palliative and hospice care. Told her that I cannot give prognosis until there is a diagnosis. Cancer is most likely. Wherever the primary she has metastatic disease, which is not curable but, can be treatable. We discussed the commitment that it takes to go through cancer treatment-treatment appts, follow up appts, coping with side effects, e ct. Pt does live alone. Currently, she is in pain and not able to rest or get around very well on her own, all of which is very concerning. Will f/u with her tomorrow with biopsy results and clarify her goals. Time with Patient: Greater than 30
[2022-01-21] MEDS: HYDROcodone/APAP 10-325MG 1 EACH TAB PO PRN ×3 (01:05→18:41)
[2022-01-21] MEDS: HYDROmorphone 2 MG TAB PO PRN ×4 (03:34→16:47)
[2022-01-21] MEDS: SYMBICORT 160-4.5 MCG INHALER INHALATION SCH ×2 (07:46→20:07)
[2022-01-21] MEDS: AMIODARONE 200 MG TAB PO SCH ×2 (07:50→19:52)
[2022-01-21] MEDS: METOPROLOL TARTRATE 50 MG TAB PO SCH ×2 (07:50→19:52)
[2022-01-21] MEDS: APIXABAN 5 MG TAB PO SCH ×2 (07:50→19:52)
[2022-01-21] MEDS: SENNOSIDES-DOCUSATE SODIUM 1 EACH TAB PO SCH ×2 (07:50→19:52)
[2022-01-21] MEDS: PANTOPRAZOLE 40 MG TABLET PO SCH (07:50)
[2022-01-21] MEDS: LIDOCAINE 5% PATCH TOPICAL SCH (07:51)
[2022-01-21] MEDS: polyethylene glycoL 3350 17 GM POWD.PACK PO SCH ×2 (07:51→19:56)
[2022-01-21] MEDS: amLODIPine 5 MG TAB PO SCH (07:51)
[2022-01-21 09:19] LABS: ALT 20 U/L (4-34); AST 31 U/L (14-36); African American GFR (CKD) >90 (>60 ml/min/1.73 sqM); Albumin 3.5 g/dL (3.5-5.0); Alkaline Phosphatase 108 U/L (38-126); Anion Gap 7 mmol/L; Blood Urea Nitrogen 14 mg/dL (7-17); Calcium 8.6 mg/dL (8.4-10.2); Carbon Dioxide 27 mmol/L (22-30); Chloride 103 mmol/L (98-107); Glucose 113 mg/dL (74-99); Non-African American GFR(CKD) 84 (>60 ml/min/1.73 sqM); Potassium 4.6 mmol/L (3.5-5.1); Sodium 137 mmol/L (137-145); Total Bilirubin 0.8 mg/dL (0.2-1.3); Total Protein 6.5 g/dL (6.3-8.2)
[2022-01-21 09:21] LABS: Basophils % (A) 0 %; Eosinophils # (A) 0.2 k/uL (0-0.7); Eosinophils % (A) 2 %; HCT 35.6 % (34.0-46.0); HGB 11.5 gm/dL (11.4-16.0); Hypochromasia Slight; Lymphocytes # (A) 0.8 k/uL (1.0-4.8); Lymphocytes % (A) 7 %; MCH 28.2 pg (25.0-35.0); MCHC 32.4 g/dL (31.0-37.0); Mean Platelet Volume 10.4; Monocytes # (A) 0.6 k/uL (0-1.0); Monocytes % (A) 5 %; Neutrophils # (A) 9.2 k/uL (1.3-7.7); Neutrophils % (A) 84 %; Platelet Count 185 k/uL (150-450); RBC 4.09 m/uL (3.80-5.40); RDW 13.3 % (11.5-15.5); WBC 10.9 k/uL (3.8-10.6)
--- NOTE | 2022-01-21 14:32 | P.PN ---
Subjective Progress Note Date: 01/21/22 Principal diagnosis: Back pain. Reevaluated today on 01/16/22, not much of a change in the last 24 hours, continues to have low back pain, patient underwent CT-guided bone fine-needle aspiration and core biopsy of sacral mass. Results of which are pending. If nondiagnostic, I would definitely proceed to repeat bronchoscopy on this patient. We are strongly suspicious that we are dealing with primarily bronchogenic carcinoma and metastases to the lumbosacral spine Patient is not in her room during my rounds, however I reviewed her workup and her labs from today, we are still waiting for the results of her sacral mass biopsy which was done by interventional radiology. According to the note by her admitting physician, patient remains on the same medications we had her on all along, and she is constipated mostly from narcotics given to her for severe back pain. CBC is relatively normal hemoglobin is 10.7. Reevaluated today on 01/18/22, patient continues to have low back pain. Unfortunately pathology from her sacral mass biopsy is pending. However clinically this is highly suspicious for metastatic lung cancer to the lumbosacral spine. Patient is on narcotics, not controlling her pain well, pulmonary-[facility] she is doing well, hardly any cough wheezing or shortness of breath at present she seems to be more bothered with her low back pain. Patient did complete radiotherapy treatment directly to the area of the lumbosacral spine. Further workup and biopsy are pending Reevaluated today on 01/19/22, patient is doing well except for low back pain. Hardly any cough no wheezing no shortness of breath at present. Pathology from her sacral mass biopsy is pending. Progress note dated 01/20/2022. The patient recently had a biopsy, but the results are currently pending. The patient on is currently on room air. Saturations are fine. No respiratory dist ress or difficulty. Laboratory data includes a white count of 11, hemoglobin 11.1, hematocrit 35.5, with a normal platelet count. Sodium 138, potassium 4.7, chlorides 104, CO2 23, BUN 17, creatinine 0.71. Lumbosacral lesion biopsy, is consistent with metastatic pulmonary adenocarcinoma. Progress note dated 01/21/2022. 76-year-old female who recently had a biopsy, showing metastatic pulmonary adenocarcinoma. The biopsy came from the lumbosacral region of the body. The patient started radiation therapy yesterday. Currently she is resting comfortably. She's on room air. She's not receiving any IV fluids. She's not having any respiratory issues. Current white count 10.9, with a normal hemoglobin, hematocrit, and platelet count. Sodium, potassium, chloride, and CO2 all normal. Anion gap normal. BUN and creatinine normal. Objective - Vital Signs Vital signs: Vital Signs Temp 98.6 F 01/21/22 08:00 Pulse 68 01/21/22 08:00 Resp 17 01/21/22 08:00 BP 148/65 01/21/22 08:00 Pulse Ox 97 01/21/22 08:00 FiO2 Intake & Output 01/20/22 01/21/22 01/21/22 18:59 06:59 18:59 Intake Total 240 120 Output Total 500 900 Balance -260 -900 120 Intake: Oral 240 120 Output: Urine 500 900 Straight 500 Other: Voiding Method Toilet Indwelling Catheter Indwelling Catheter # Voids 2 # Bowel Movements 1 2 - Exam No acute distress, oriented 3. Currently on room air. No respiratory distress. Saturation is 97%. HEENT examination is grossly unremarkable. Neck supple. Full range of motion. No adenopathy thyromegaly or neck vein distention. Cardiovascular examination reveals regular rhythm rate. S1-S2 normal. No S3 or S4. No discernible murmur noted. Heart rate 60 bpm. Lungs reveal mild scattered rhonchi. No wheezes or crackles. Room air saturation 97 %. Abdomen soft bowel sounds are heard. No masses or tenderness. Extremities are intact. No cyanosis clubbing or edema. Skin is without rash or lesion. Neurologic examination is brief but nonfocal. - Labs CBC & Chem 7: 01/21/22 08:05 01/21/22 08:05 Labs: Abnormal Lab Results - Last 24 Hours (Table) 01/21/22 01/21/22 Range/Units 08:05 08:05 WBC 10.9 H (3.8-10.6) k/uL Neutrophils # 9.2 H (1.3-7.7) k/uL Lymphocytes # 0.8 L (1.0-4.8) k/uL Glucose 113 H (74-99) mg/dL Assessment and Plan Assessment: Advanced bronchogenic carcinoma, with skeletal metastasis, and biopsy consistent with metastatic pulmonary adenocarcinoma. Previous history of tobacco use. History of COPD. Hypertension. History of bariatric surgery for obesity, 2018. Plan: Plan dated 01/20/2022. The patient has started radiation treatment for her presumed skeletal metastasis. Biopsies were positive for metastatic pulmonary adenocarcinoma. Pain management per the primary care physician. Air saturations are excellent. No additional recommendations are made. Prognosis is certainly guarded. Labs, x-rays, and medications are all reviewed. Plan dated 01/21/2022. The patient appears be doing well. She is on room air. Not receiving any IV fluids. She started radiation yesterday. Labs, x-rays, and medications are reviewed. No respiratory issues. She denies any shortness of breath, cough, wheezing, or phlegm production. Time with Patient: Less than 30
--- NOTE | 2022-01-21 17:38 | P.PN ---
Subjective Progress Note Date: 01/21/22 Gracie Ybarra, is a 76 year-old female who presented to [facility] with a chief complaint of low back pain, and constipation, patient was recently diagnosed with lung cancer she was also diagnosed with atrial fibrillation recently, she is followed by pulmonary and cardiology as outpatient. Patient was evaluated in the emergency room CT angiogram of the chest revealed no evidence of pulmonary embolism however she had multiple abnormalities consistent with tumor with cavitating mass in the right lower lobe and also left side paraspinal mass, she was admitted to medical floor, consultation for pulmonary, and pain management was initiated. On review of system patient is alert and oriented 3 in no apparent distress she is complaining of low back pain otherwise she denies any complaints there is no fever or chills no headache or dizziness no chest pain no shortness of breath no cough no nausea or vomiting no diarrhea stools no burning with urination no frequency or urgency no hematuria On 01/14/2022 patient was seen and examined on the medical floor she is complaining of low back pain, she is also complaining of cough and mild shortness of breath otherwise she denies any complaints there is no fever or chills no headache or dizziness no chest pain no nausea or vomiting no abdominal pain no diarrhea and no urinary symptoms, input from pulmonary and oncology reviewed, awaiting tissue diagnosis, will follow closely On 01/15/2022 patient is alert and oriented 3. Patient still complaining of lower back discomfort. Plans for CT-guided biopsy of the lumbar spine today. Patient denies chest pain or shortness breath. Patient denies nausea vomiting diarrhea. Patient denies any urinary burning or frequency. On 01/16/2022 patient was seen and examined on the medical floor she is alert and oriented 3 in no apparent distress, there is no fever or chills no headache or dizziness, she reports improvement in her shortness of breath and cough she denies any chest pain there is no nausea or vomiting no abdominal pain no diarrhea and no urinary symptoms, she underwent CT-guided bone fine-needle aspiration and core biopsy of the sacral area. On 01/17/2022 patient is alert and oriented 3. Patient remains on IV Cardizem drip. Discussed with nursing staff to address anticoagulation with cardiology services. Patient denies chest pain or shortness of breath. Patient denies nausea vomiting or diarrhea. Patient denies any urinary burning or frequency On 01/18/2022 patient was seen and examined on the telemetry floor she is alert and oriented 3 in no apparent distress she is still complaining of severe pain and complaining of constipation otherwise she denies any complaints there is no fever or chills no headache or dizziness no chest pain no shortness of breath no cough no nausea or vomiting no abdominal pain no diarrhea and no urinary symptoms, patient was started on radiation therapy for sacral mass, she is scheduled for a second treatment of radiation therapy on Thursday On 01/19/2022 patient's alert and oriented 3. Per nursing staff patient had a fall early this a.m. Patient did not hit her head. Patient also in and A. fib with RVR requiring IV Cardizem patient has converted back currently off Cardizem drip. Patient still having pain to back at this time. Plans for radiation tomorrow. Cardiology services following. Patient denies chest pain or shortness breath. Patient denies nausea vomiting or diarrhea. Patient denies any urinary burning or frequency. On 01/20/2022 patient was seen and examined on the medical floor she is alert and oriented 3 in no apparent distress she is still complaining of low back pain otherwise she denies any complaints there is no fever or chills no headache or dizziness no chest pain no shortness of breath no cough no nausea or vomiting no abdominal pain no diarrhea and no urinary symptoms. Patient received a radiation treatment today, at this point Will consult pain services to evaluate pain management continue with current medication otherwise. On 01/21/2022 patient was seen and examined on the medical floor she is alert and oriented 3 in no apparent distress there is no fever or chills no headache or dizziness no chest pain, shortness of breath has improved since admission there is no nausea or vomiting no abdominal pain no diarrhea and no urinary symptoms. Constipation improved was current medication regimen, pain control is improving gradually Possibility of discharge discussed with patient, she is requesting to be discharged home tomorrow after her radiation therapy. After that she will come for radiation therapy as outpatient. Objective - Vital Signs Vital signs: Vital Signs Temp 98.6 F 01/21/22 08:00 Pulse 68 01/21/22 08:00 Resp 17 01/21/22 08:00 BP 148/65 01/21/22 08:00 Pulse Ox 97 01/21/22 08:00 FiO2 Intake & Output 1201/21/22 01/21/22 18:59 06:59 18:59 Intake Total 240 Output Total 500 900 Balance -260 -900 Intake: Oral 240 Output: Urine 500 900 Straight 500 Other: Voiding Method Toilet Indwelling Catheter # Voids 2 # Bowel Movements 1 2 - Exam In general patient is alert and oriented x 3 in no distress HEENT head normocephalic and atraumatic Neck is supple no JVD no goiter no lymphadenopathy no carotid bruit Chest examination is clear to auscultation no crackles no wheezing Cardiac exam reveals regular heart sounds S1 and S2 no gallops no murmurs Abdomen is soft nontender no organomegaly with normal bowel sounds Extremity exam reveals no edema no cyanosis or clubbing Neurological examination reveals no gross focal deficits - Labs CBC & Chem 7: 01/21/22 08:05 01/21/22 08:05 Labs: Abnormal Lab Results - Last 24 Hours (Table) 01/20/22 01/20/22 Range/Units 10:49 10:49 WBC 11.0 H (3.8-10.6) k/uL Hgb 11.1 L (11.4-16.0) gm/dL Neutrophils # 9.3 H (1.3-7.7) k/uL Lymphocytes # 0.7 L (1.0-4.8) k/uL AST 40 H (14-36) U/L Assessment and Plan Plan: Intractable back pain Constipation likely related to the use of hydrocodone Recent diagnosis of lung cancer Recent diagnosis of atrial fibrillation Underlying history of hypertension Underlying history of degenerative disc disease At this time patient is admitted to medical floor, Home medications reviewed and reordered Pulmonary cardiology and pain management services were consulted Plans for CT-guided biopsy of the lumbar spine 01/15/2022 Anticoagulation to be addressed per cardiology services Patient remains on IV Cardizem Will follow closely
--- NOTE | 2022-01-21 20:38 | P.PN ---
Subjective Progress Note Date: 01/21/22 Principal diagnosis: Metastatic adenocarcinoma of the lung -Lumbosacral bone biopsy from 01/15/22 consistent with adenocarcinoma of primary (positive TTF-1 and CK7) -No acute events overnight -She continues to have low back pain with has not changed in nature -She has started palliative radiation to the lumbosacral region Objective - Vital Signs Vital signs: Vital Signs Temp 97.4 F L 01/21/22 16:00 Pulse 68 01/21/22 16:00 Resp 17 01/21/22 16:00 BP 150/74 01/21/22 16:00 Pulse Ox 97 01/21/22 16:00 FiO2 Intake & Output 01/21/22 01/21/22 01/22/22 06:59 18:59 06:59 Intake Total 120 Output Total 900 250 Balance -900 -130 Intake: Oral 120 Output: Urine 900 250 Other: Voiding Method Indwelling Catheter Indwelling Catheter # Voids 2 # Bowel Movements 2 1 - Constitutional General appearance: Present: average body habitus, cooperative, no acute distress - EENT Eyes: Present: EOMI - Respiratory Respiratory: bilateral: CTA - Cardiovascular Rhythm: regular Heart sounds: normal: S1, S2 - Gastrointestinal General gastrointestinal: Present: normal bowel sounds, soft - Integumentary Integumentary: Present: normal - Neurologic Neurologic: Present: CNII-XII intact - Labs CBC & Chem 7: 01/21/22 08:05 01/21/22 08:05 Labs: Abnormal Lab Results - Last 24 Hours (Table) 01/21/22 01/21/22 Range/Units 08:05 08:05 WBC 10.9 H (3.8-10.6) k/uL Neutrophils # 9.2 H (1.3-7.7) k/uL Lymphocytes # 0.8 L (1.0-4.8) k/uL Glucose 113 H (74-99) mg/dL Assessment and Plan Assessment: Ms. Ybarra is a 76-year-old woman who presented with progressive lower back pain found to have bone lesions biopsy-proven to be metastatic adenocarcinoma of the lung. (1) Adenocarcinoma, lung Current Visit: Yes Status: Acute Code(s): C34.90 - MALIGNANT NEOPLASM OF UNSP PART OF UNSP BRONCHUS OR LUNG SNOMED Code(s): 249512547 Plan: -Biopsy result was reviewed with Ms. Ybarra, her son, and her daughter at bedside -We discussed the implications of the biopsy results, indicating that this is stage IV lung cancer -We discussed different approaches to care with palliative approach focusing on symptom management versus approach directed at treating the underlying malignancy as best as possible -For the latter approach, we discussed that additional work-up be recommended with NGS and PD-L1 testing in order to fully explore what treatment options would be possible -Her prognosis with treatment would be purely determined by the results of this testing. Patients with targetable mutations can have durable responses to treatment lasting years -Following this extensive discussion, Ms. Ybarra and her family have agreed to proceed with further work-up of her malignancy with NGS and PD-L1 testing of the biopsy sample -She will also need circulating tumor DNA testing to assess for targetable mutations in the outpatient setting -We will reschedule PET scan previously scheduled prior to admission along with brain MRI for complete staging work-up -We will schedule follow-up outpatient -Continue palliative RT to the lumbosacral bone metastases Time with Patient: Greater than 30
[2022-01-22] MEDS: HYDROmorphone 2 MG TAB PO PRN ×3 (00:29→10:53)
[2022-01-22] MEDS: PANTOPRAZOLE 40 MG TABLET PO SCH (04:04)
[2022-01-22] MEDS: HYDROcodone/APAP 10-325MG 1 EACH TAB PO PRN ×4 (04:04→18:05)
[2022-01-22] MEDS: SYMBICORT 160-4.5 MCG INHALER INHALATION SCH (07:32)
[2022-01-22] MEDS: amLODIPine 5 MG TAB PO SCH (08:34)
[2022-01-22] MEDS: AMIODARONE 200 MG TAB PO SCH (08:35)
[2022-01-22] MEDS: APIXABAN 5 MG TAB PO SCH (08:35)
[2022-01-22] MEDS: METOPROLOL TARTRATE 50 MG TAB PO SCH (08:36)
[2022-01-22] MEDS: polyethylene glycoL 3350 17 GM POWD.PACK PO SCH (08:36)
[2022-01-22] MEDS: SENNOSIDES-DOCUSATE SODIUM 1 EACH TAB PO SCH (09:01)
[2022-01-22] MEDS: LIDOCAINE 5% PATCH TOPICAL SCH (09:02)
--- NOTE | 2022-01-22 12:44 | P.PN ---
Subjective Progress Note Date: 01/22/22 Principal diagnosis: intractable pain, malignancy of unknown primary In f/u today pt Is not engaged in our conversation. Patient is being seen to discuss MRI of the brain and guardant testing that Oncologist wanted. Patient Is uncertain if she wants to do anything. States she doesn't even know what questions to ask. Rephrased questions, reviewed diagnosis, she is overwhelmed. I asked her about participating in rehabilitation as a place to start from, considering she's been sitting/laying around the last 10 days. She doesn't know if she wants to participate in rehabilitation or if she wants to go home. Objective - Vital Signs Vital signs: Vital Signs Temp 98.6 F 01/22/22 08:00 Pulse 67 01/22/22 08:00 Resp 16 01/22/22 08:00 BP 138/68 01/22/22 08:00 Pulse Ox 94 L 01/22/22 08:00 FiO2 Intake & Output 01/21/22 01/22/22 01/22/22 18:59 06:59 18:59 Intake Total 120 118 Output Total 250 950 250 Balance -130 -950 -132 Intake: Oral 120 118 Output: Urine 250 950 250 Other: Voiding Method Indwelling Catheter Indwelling Catheter Indwelling Catheter # Bowel Movements 1 - Constitutional General appearance: Present: average body habitus, cooperative, no acute distress - EENT Eyes: Present: anicteric sclerae, EOMI ENT: Present: hearing grossly normal - Respiratory Details: Respirations even and unlabored at rest - Neurologic Neurologic: Present: CNII-XII intact (Grossly) - Psychiatric Psychiatric Comment(s): Patient affect is flat, not engaged, she is not making decisions at this time Psychiatric: Present: A&O x's 3 - Labs CBC & Chem 7: 01/21/22 08:05 01/21/22 08:05 Assessment and Plan (1) Adenocarcinoma, lung Current Visit: Yes Status: Acute Code(s): C34.90 - MALIGNANT NEOPLASM OF UNSP PART OF UNSP BRONCHUS OR LUNG SNOMED Code(s): 549148407 (2) Intractable low back pain Current Visit: Yes Status: Acute Code(s): M54.59 - OTHER LOW BACK PAIN SNOMED Code(s): 92267894238709053 (3) Lung mass Current Visit: No Status: Acute Priority: High Code(s): R91.8 - OTHER NONSPECIFIC ABNORMAL FINDING OF LUNG FIELD SNOMED Code(s): 165025808 Plan: Patient is aware of her diagnosis. Further workup, guardant testing, prognosis were reviewed with patient. When seen today to discuss the scheduling of MRI of the brain and guardant blood draw patient is reporting that she is not making any decisions at this time. Tried rephrasing questions, summarizing the patient's course, reviewing the diagnosis and why the additional testing was wanted but, patient was still not able to focus enough to make any decisions. I told the patient's her appointment with the oncologist will remain. MRI of the brain and guardant testing, if she decides she wants to have it, she needs to contact our office and inform us that she wants to proceed so this can be scheduled. Asked if she was going to consider rehabilitation, because of a prolonged hospitalization and generalized weakness. Patient did not want to make any decisions about that at this time. Patient that we could have PT/OT assess her and micki recommendations, she denied wanting that assessment at this time. Pain related to malignancy. She has completed radiation to painful bone metastases, she seems to be using minimal narcotics with decent pain control. Continue current analgesic regimen.
--- NOTE | 2022-01-22 14:50 | P.DS ---
Providers Date of admission: 01/12/22 17:26 Expected date of discharge: 01/22/22 Attending physician: Sheila Abreu Consults: 01/12/22 17:07 Consult Physician Routine Consulting Provider: Lkahwinder Bullock Consult Reason/Comments: A. fib with RVR Do you want consulting provider notified?: Yes, Notify in am Consult Physician Routine Consulting Provider: Karo Mantilla Consult Reason/Comments: Lung cancer Do you want consulting provider notified?: Yes, Notify in am 01/12/22 17:09 Consult Physician Routine Consulting Provider: Eusebio Akers Consult Reason/Comments: lung cancer, pneumonia Do you want consulting provider notified?: Yes, Notify in am 01/13/22 08:49 Consult Physician Routine Consulting Provider: Patricio Merritt Consult Reason/Comments: neoplasm related pain Do you want consulting provider notified?: Yes Primary care physician: Sheila [facility] Course: Diagnosis on discharge: Intractable back pain Constipation likely related to the use of hydrocodone Recent diagnosis of lung cancer Evidence of metastatic bone disease Recent diagnosis of atrial fibrillation Underlying history of hypertension Underlying history of degenerative disc disease Hospital course: Gracie Ybarra, is a 76 year-old female who presented to [facility] with a chief complaint of low back pain, and constipation, patient was recently diagnosed with lung cancer she was also diagnosed with atrial fibrillation recently, she is followed by pulmonary and cardiology as outpatient. Patient was evaluated in the emergency room CT angiogram of the chest revealed no evidence of pulmonary embolism however she had multiple abnormalities consistent with tumor with cavitating mass in the right lower lobe and also left side paraspinal mass, she was admitted to medical floor, consultation for pulmonary, and pain management was initiated. On review of system patient is alert and oriented 3 in no apparent distress she is complaining of low back pain otherwise she denies any complaints there is no fever or chills no headache or dizziness no chest pain no shortness of breath no cough no nausea or vomiting no diarrhea stools no burning with urination no frequency or urgency no hematuria On 01/14/2022 patient was seen and examined on the medical floor she is complaining of low back pain, she is also complaining of cough and mild shortness of breath otherwise she denies any complaints there is no fever or chills no headache or dizziness no chest pain no nausea or vomiting no abdominal pain no diarrhea and no urinary symptoms, input from pulmonary and oncology reviewed, awaiting tissue diagnosis, will follow closely On 01/15/2022 patient is alert and oriented 3. Patient still complaining of lower back discomfort. Plans for CT-guided biopsy of the lumbar spine today. Patient denies chest pain or shortness breath. Patient denies nausea vomiting diarrhea. Patient denies any urinary burning or frequency. On 01/16/2022 patient was seen and examined on the medical floor she is alert and oriented 3 in no apparent distress, there is no fever or chills no headache or dizziness, she reports improvement in her shortness of breath and cough she denies any chest pain there is no nausea or vomiting no abdominal pain no diarrhea and no urinary symptoms, she underwent CT-guided bone fine-needle aspiration and core biopsy of the sacral area. On 01/17/2022 patient is alert and oriented 3. Patient remains on IV Cardizem drip. Discussed with nursing staff to address anticoagulation with cardiology services. Patient denies chest pain or shortness of breath. Patient denies nausea vomiting or diarrhea. Patient denies any urinary burning or frequency On 01/18/2022 patient was seen and examined on the telemetry floor she is alert and oriented 3 in no apparent distress she is still complaining of severe pain and complaining of constipation otherwise she denies any complaints there is no fever or chills no headache or dizziness no chest pain no shortness of breath no cough no nausea or vomiting no abdominal pain no diarrhea and no urinary symptoms, patient was started on radiation therapy for sacral mass, she is scheduled for a second treatment of radiation therapy on Thursday On 01/19/2022 patient's alert and oriented 3. Per nursing staff patient had a fall early this a.m. Patient did not hit her head. Patient also in and A. fib with RVR requiring IV Cardizem patient has converted back currently off Cardizem drip. Patient still having pain to back at this time. Plans for radiation tomorrow. Cardiology services following. Patient denies chest pain or shortness breath. Patient denies nausea vomiting or diarrhea. Patient denies any urinary burning or frequency. On 01/20/2022 patient was seen and examined on the medical floor she is alert and oriented 3 in no apparent distress she is still complaining of low back pain otherwise she denies any complaints there is no fever or chills no headache or dizziness no chest pain no shortness of breath no cough no nausea or vomiting no abdominal pain no diarrhea and no urinary symptoms. Patient received a radiation treatment today, at this point Will consult pain services to evaluate pain management continue with current medication otherwise. On 01/21/2022 patient was seen and examined on the medical floor she is alert and oriented 3 in no apparent distress there is no fever or chills no headache or dizziness no chest pain, shortness of breath has improved since admission there is no nausea or vomiting no abdominal pain no diarrhea and no urinary symptoms. Constipation improved was current medication regimen, pain control is improving gradually Possibility of discharge discussed with patient, she is requesting to be discharged home tomorrow after her radiation therapy. After that she will come for radiation therapy as outpatient. On 01/22/2022 patient was seen and examined on the medical floor she is alert and oriented 3 in no apparent distress she is still complaining of low back pain otherwise she denies any complaints there is no fever or chills no headache or dizziness no chest pain no shortness of breath no cough no nausea or vomiting no abdominal pain no diarrhea and no urinary symptoms. Patient received a radiation treatment today, at this point Will consult pain services to evaluate pain management continue with current medication otherwise. Plan is for discharge to home today after radiation therapy Plan - Discharge Summary Discharge Rx Participant: No New Discharge Prescriptions: New Amiodarone [Cordarone] 400 mg PO BID #120 tab Metoprolol Tartrate [Lopressor] 50 mg PO BID #60 tab fentaNYL 12MCG/HR PATCH [Duragesic 12MCG/HR] 1 patch TRANSDERM Q72H patch polyethylene glycoL 3350 [Miralax] 17 gm PO BID packet Lidocaine 5% Patch [Lidoderm 5% Patch] 1 patch TOPICAL DAILY patch Magnesium Hydroxide [Milk of Magnesia Concentrate] 2,400 mg PO DAILY PRN ml PRN Reason: Constipation HYDROcodone/APAP 10-325MG [[place] 10-325] 1 each PO Q4HR PRN tab PRN Reason: Mild Breakthrough Pain (1-3) Pantoprazole [Protonix] 40 mg PO AC-BRKFST tab Sennosides-Docusate Sodium [Senokot-S] 2 each PO BID tab ALPRAZolam [Xanax] 0.25 mg PO QID PRN tab PRN Reason: Anxiety Continue Apixaban [Eliquis] 5 mg PO BID #60 tab amLODIPine [Norvasc] 5 mg PO DAILY Budesonide-Formot 160-4.5 Mcg [Symbicort 160-4.5 Mcg Inhaler] 2 puff INHALATION RT-BID each Discontinued HYDROcodone/APAP 10-325MG [[place] 10-325] 0.5 tab PO TID Metoprolol Tartrate [Lopressor] 25 mg PO BID #60 tab Discharge Medication List amLODIPine [Norvasc] 5 mg PO DAILY 06/27/20 [History] Apixaban [Eliquis] 5 mg PO BID #60 tab 12/30/21 [Rx] Budesonide-Formot 160-4.5 Mcg [Symbicort 160-4.5 Mcg Inhaler] 2 puff INHALATION RT-BID each 12/31/21 [Rx] Amiodarone [Cordarone] 400 mg PO BID #120 tab 01/20/22 [Rx] Metoprolol Tartrate [Lopressor] 50 mg PO BID #60 tab 01/20/22 [Rx] ALPRAZolam [Xanax] 0.25 mg PO QID PRN tab 01/22/22 [Rx] HYDROcodone/APAP 10-325MG [[place] 10-325] 1 each PO Q4HR PRN tab 01/22/22 [Rx] Lidocaine 5% Patch [Lidoderm 5% Patch] 1 patch TOPICAL DAILY patch 01/22/22 [Rx] Magnesium Hydroxide [Milk of Magnesia Concentrate] 2,400 mg PO DAILY PRN ml 01/22/22 [Rx] Pantoprazole [Protonix] 40 mg PO AC-BRKFST tab 01/22/22 [Rx] Sennosides-Docusate Sodium [Senokot-S] 2 each PO BID tab 01/22/22 [Rx] fentaNYL 12MCG/HR PATCH [Duragesic 12MCG/HR] 1 patch TRANSDERM Q72H patch 01/22/22 [Rx] polyethylene glycoL 3350 [Miralax] 17 gm PO BID packet 01/22/22 [Rx] Follow up Appointment(s)/Referral(s): Damian Celis MD [STAFF PHYSICIAN] - 2 Weeks Karo Mantilla MD [STAFF PHYSICIAN] - 02/04/22 10:00 Sheila Cunha MD [Primary Care Provider] - 1-2 days Patient Instructions/Handouts: Amiodarone (By mouth) Activity/Diet/Wound Care/Special Instructions: Cardiology Instructions: Continue Eliquis Increase metoprolol tartrate to 50mg twice a day Amiodarone is a new medication, this medication needs to be decreased dose over time. Please follow the instructions Take Amiodarone 400mg Twice a day for 1 week 01/18-01/24 Then Take Amiodarone 200mg Twice a day for 1 week starting 01/25-01/31 Then Take Amiodarone 100mg Twice a day for 1 week starting 02/01-02/07 Then take Amiodarone 100mg daily Further changes from Dr. Celis in the office. If patient is interested in pursuing further workup for cancer, please contact the Oncologist office so additional testing can be scheduled. Appointment to follow-up with the Oncologist is on 02/04 at 10 AM.
[2022-01-22 16:17] VITALS: BP 145/78; PULSE 67; RESP 14; TEMP 97.7
--- NOTE | 2022-01-22 16:36 | P.PN ---
Subjective Progress Note Date: 01/22/22 Principal diagnosis: Back pain. Reevaluated today on 01/16/22, not much of a change in the last 24 hours, continues to have low back pain, patient underwent CT-guided bone fine-needle aspiration and core biopsy of sacral mass. Results of which are pending. If nondiagnostic, I would definitely proceed to repeat bronchoscopy on this patient. We are strongly suspicious that we are dealing with primarily bronchogenic carcinoma and metastases to the lumbosacral spine Patient is not in her room during my rounds, however I reviewed her workup and her labs from today, we are still waiting for the results of her sacral mass biopsy which was done by interventional radiology. According to the note by her admitting physician, patient remains on the same medications we had her on all along, and she is constipated mostly from narcotics given to her for severe back pain. CBC is relatively normal hemoglobin is 10.7. Reevaluated today on 01/18/22, patient continues to have low back pain. Unfortunately pathology from her sacral mass biopsy is pending. However clinically this is highly suspicious for metastatic lung cancer to the lumbosacral spine. Patient is on narcotics, not controlling her pain well, pulmonary-median she is doing well, hardly any cough wheezing or shortness of breath at present she seems to be more bothered with her low back pain. Patient did complete radiotherapy treatment directly to the area of the lumbosacral spine. Further workup and biopsy are pending Reevaluated today on 01/19/22, patient is doing well except for low back pain. Hardly any cough no wheezing no shortness of breath at present. Pathology from her sacral mass biopsy is pending. Progress note dated 01/20/2022. The patient recently had a biopsy, but the results are currently pending. The patient on is currently on room air. Saturations are fine. No respiratory dist ress or difficulty. Laboratory data includes a white count of 11, hemoglobin 11.1, hematocrit 35.5, with a normal platelet count. Sodium 138, potassium 4.7, chlorides 104, CO2 23, BUN 17, creatinine 0.71. Lumbosacral lesion biopsy, is consistent with metastatic pulmonary adenocarcinoma. Progress note dated 01/21/2022. 76-year-old female who recently had a biopsy, showing metastatic pulmonary adenocarcinoma. The biopsy came from the lumbosacral region of the body. The patient started radiation therapy yesterday. Currently she is resting comfortably. She's on room air. She's not receiving any IV fluids. She's not having any respiratory issues. Current white count 10.9, with a normal hemoglobin, hematocrit, and platelet count. Sodium, potassium, chloride, and CO2 all normal. Anion gap normal. BUN and creatinine normal. Progress note dated 01/22/2022. 76-year-old female recently had a biopsy, showing metastatic pulmonary adenocarcinoma. The biopsy came to the lumbosacral region of the body. Patient recently started radiation therapy. Clinically she is stable. She's on room air. No IV fluids. No new labs today. Laboratory data from January 31. Objective - Vital Signs Vital signs: Vital Signs Temp 97.7 F 01/22/22 16:16 Pulse 67 01/22/22 16:16 Resp 14 01/22/22 16:16 BP 145/78 01/22/22 16:16 Pulse Ox 95 01/22/22 16:16 FiO2 Intake & Output 01/21/22 01/22/22 01/22/22 18:59 06:59 18:59 Intake Total 120 118 Output Total 250 950 450 Balance -130 -950 -332 Intake: Oral 120 118 Output: Urine 250 950 450 Uretheral (Lindquist) 200 Other: Voiding Method Indwelling Catheter Indwelling Catheter Indwelling Catheter # Bowel Movements 1 1 - Exam No acute distress, oriented 3. Currently on room air. No respiratory distress. Saturation is 95 %. HEENT examination is grossly unremarkable. Neck supple. Full range of motion. No adenopathy thyromegaly or neck vein distention. Cardiovascular examination reveals regular rhythm rate. S1-S2 normal. No S3 or S4. No discernible murmur noted. Heart rate 67 bpm. Lungs reveal mild scattered rhonchi. No wheezes or crackles. Room air saturation 97 %. Abdomen soft bowel sounds are heard. No masses or tenderness. Extremities are intact. No cyanosis clubbing or edema. Skin is without rash or lesion. Neurologic examination is brief but nonfocal. - Labs CBC & Chem 7: 01/21/22 08:05 01/21/22 08:05 Assessment and Plan Assessment: Advanced bronchogenic carcinoma, with skeletal metastasis, and biopsy consistent with metastatic pulmonary adenocarcinoma. Previous history of tobacco use. History of COPD. Hypertension. History of bariatric surgery for obesity, 2018. Plan: Plan dated 01/20/2022. The patient has started radiation treatment for her presumed skeletal metastasis . Biopsies were positive for metastatic pulmonary adenocarcinoma. Pain management per the primary care physician. Air saturations are excellent. No additional recommendations are made. Prognosis is certainly guarded. Labs, x- rays, and medications are all reviewed. Plan dated 01/21/2022. The patient appears be doing well. She is on room air. Not receiving any IV fluids. She started radiation yesterday. Labs, x-rays, and medications are reviewed. No respiratory issues. She denies any shortness of breath, cough, wheezing, or phlegm production. Plan dated 01/22/2022. The patient has started radiation therapy. Her respiratory status is stable. She's on room air. Not receiving any IV fluids. Labs, x-rays, and medications are reviewed. Prognosis is guarded. Time with Patient: Less than 30
--- NOTE | 2022-01-30 09:53 | CDI ---
Documentation Clarification Form Date: 01/30/2022 09:28:51 AM From: Bonita Carlson Phone: Admit Date: 01/12/2022 05:26:00 PM Patient Name: Gracie Ybarra Visit Number: [id number] Discharge Date: 01/22/2022 06:49:00 PM ATTENTION: The Clinical Documentation Specialists (CDI) and [facility] Coding Staff appreciate your assistance in clarifying documentation. Please respond to the clarification below the line at the bottom and electronically sign. The CDI & [facility] Coding staff will review the response and follow-up if needed. Please note: Queries are made part of the Legal Health Record. If you have any questions, please contact the author of this message via ITS. Dr. Sheila Abreu PNA is documented per ED which may lack sufficient clinical evidence/support in the medical record. Additional clarification is requested. History/Risk Factors: 76yo F, right main bronchus & RUL Ca w mets to bone, Other persistent atrial fibrillation, Hx smoker, AECOPD, HTN, Hx bariatric surgery, noncompliance Clinical Indicators: WBC: 8.8 01/12 11.0 01/20 X-ray: No evidence of pulmonary embolism. Multiple abnormalities consistent with tumor. This cavitating mass in the RLL and also LT side paraspinal mass which are increased compared to CT scan of 12/19/2021 and consistent with progression of tumor. Infiltrate RUL increased compared to old exam. Lung/Breathing assessment: She denies any chest pain or difficulty breathing Treatment: Case discussed with Dr. Thornton patient will be given Zithromax and Rocephin Please clarify if PNA is a valid diagnosis? [ ] Yes, PNA is present as evidence by (additional clinical support): [x ] No, PNA is ruled out [ ] Other (please specify diagnosis) [ ] Unable to determine (Template Last Revised: April 2020) MTDD
== END 2022-01-22 18:49 | disposition home or self-care (01) | DRG 478 ==
LOC: EC 13:56 → 3SCARD 17:26
PROVIDERS: ADMIT Internal Medicine; ATTEND Internal Medicine
PROC: 0QB13ZX Excision of Sacrum, Percutaneous Approach, Diagnostic (ICD-10-PCS; principal; 2022-01-15 07:30)
PROC: DP0C2ZZ Beam Radiation of Other Bone using Photons >10 MeV (ICD-10-PCS; 2022-01-17)
DX: C79.51 Secondary malignant neoplasm of bone (principal); C34.01 Malignant neoplasm of right main bronchus; I48.19 Other persistent atrial fibrillation; J44.0 Chronic obstructive pulmonary disease with (acute) lower respiratory infection; C34.11 Malignant neoplasm of upper lobe, right bronchus or lung; C34.90 Malignant neoplasm of unspecified part of unspecified bronchus or lung; I27.20 Pulmonary hypertension, unspecified; I11.9 Hypertensive heart disease without heart failure; R63.4 Abnormal weight loss; Z68.32 Body mass index [BMI] 32.0-32.9, adult; I08.3 Combined rheumatic disorders of mitral, aortic and tricuspid valves; I70.0 Atherosclerosis of aorta; M51.36 Other intervertebral disc degeneration, lumbar region; R00.0 Tachycardia, unspecified; R77.8 Other specified abnormalities of plasma proteins; M47.816 Spondylosis without myelopathy or radiculopathy, lumbar region; K59.09 Other constipation; K59.03 Drug induced constipation; T40.605A Adverse effect of unspecified narcotics, initial encounter; G89.3 Neoplasm related pain (acute) (chronic); M19.90 Unspecified osteoarthritis, unspecified site; R29.6 Repeated falls; W18.30XA Fall on same level, unspecified, initial encounter; Y92.239 Unspecified place in hospital as the place of occurrence of the external cause; R01.1 Cardiac murmur, unspecified; F10.90 Alcohol use, unspecified, uncomplicated; Z91.81 History of falling; Z87.891 Personal history of nicotine dependence; Z79.899 Other long term (current) drug therapy; Z79.01 Long term (current) use of anticoagulants; Z79.51 Long term (current) use of inhaled steroids; Z88.0 Allergy status to penicillin; Z88.5 Allergy status to narcotic agent; Z87.19 Personal history of other diseases of the digestive system; Z98.84 Bariatric surgery status; Z91.199 Patient's noncompliance with other medical treatment and regimen due to unspecified reason
CPT/HCPCS: 20220; 36415; 71275; 72110; 74018; 74177; 77012; 77280; 77290; 77307; 77334; 77387; 77412; 80048; 80053; 83605; 83735; 84484; 85025; 85379; 85610; 85730; 87040; 88305; 88341; 88342; 93005; 93306; 94640; 96361; 96365; 96366; 96375; 96376; 99285

== ENCOUNTER 2022-01-23 04:31 | Inpatient (IN) | payer MEDICARE, OTHER ==
[2022-01-23] MEDS ORDERED: ONDANSETRON 4 MG/2 ML VIAL IVP STA (04:42)
[2022-01-23] MEDS ORDERED: IBUPROFEN 800 MG TAB PO STA (04:42)
[2022-01-23] MEDS ORDERED: ACETAMINOPHEN TAB 500 MG TAB PO STA (04:42)
[2022-01-23] MEDS ORDERED: SODIUM CHLORIDE 0.9% 1,000 ML IV STA (04:42)
--- NOTE | 2022-01-23 04:44 | ED ---
Altered Mental Status HPI - General Chief Complaint: Altered Mental Status Stated Complaint: Neuro Deficits Time Seen by Provider: 01/23/22 04:36 Source: family, RN notes reviewed, old records reviewed, Caregiver Mode of arrival: EMS Limitations: altered mental status, physical limitation - History of Present Illness Initial Comments: This is a 68-year-old female DF for evaluation of wake up CVA. Patient went to bed around 8 PM last night woke up this morning around 5:30 MD Complaint: altered mental status, confusion, decreased responsiveness, intoxication, weakness -: days(s) Severity: moderate Consistency of Symptoms: getting worse, constant Context: alcohol abuse, history of similar presentation Associated Symptoms: weakness - Related Data Home Medications Medication Instructions Recorded Confirmed amLODIPine [Norvasc] 5 mg PO DAILY 06/27/20 01/12/22 Previous Rx's Medication Instructions Recorded Apixaban [Eliquis] 5 mg PO BID #60 tab 12/30/21 Budesonide-Formot 160-4.5 Mcg 2 puff INHALATION RT-BID each 12/31/21 [Symbicort 160-4.5 Mcg Inhaler] Amiodarone [Cordarone] 400 mg PO BID #120 tab 01/20/22 Metoprolol Tartrate [Lopressor] 50 mg PO BID #60 tab 01/20/22 ALPRAZolam [Xanax] 0.25 mg PO QID PRN tab 01/22/22 HYDROcodone/APAP 10-325MG [[place] 1 each PO Q4HR PRN tab 01/22/22 10-325] Lidocaine 5% Patch [Lidoderm 5% 1 patch TOPICAL DAILY patch 01/22/22 Patch] Magnesium Hydroxide [Milk of 2,400 mg PO DAILY PRN ml 01/22/22 Magnesia Concentrate] Pantoprazole [Protonix] 40 mg PO AC-BRKFST tab 01/22/22 Sennosides-Docusate Sodium 2 each PO BID tab 01/22/22 [Senokot-S] fentaNYL 12MCG/HR PATCH [Duragesic 1 patch TRANSDERM Q72H 3 Days #1 01/22/22 12MCG/HR] patch polyethylene glycoL 3350 [Miralax] 17 gm PO BID packet 01/22/22 Allergies Allergy/AdvReac Type Severity Reaction Status Date / Time Penicillins Allergy Severe Anaphylaxis Verified 01/12/22 16:43 morphine Allergy Rash/Hives Verified 01/12/22 16:43 Review of Systems ROS Statement: Those systems with pertinent positive or pertinent negative responses have been documented in the HPI. ROS Other: All systems not noted in ROS Statement are negative. Past Medical History Past Medical History: Eye Disorder, Hypertension, Osteoarthritis (OA) Additional Past Medical History / Comment(s): Hx. of DIVERTICULITIS, LT EYE MAC. DEGEN. HTN resolved after surgery., dysphagia History of Any Multi-Drug Resistant Organisms: None Reported Past Surgical History: Bariatric Surgery, Cholecystectomy, Orthopedic Surgery, Tubal Ligation Additional Past Surgical History / Comment(s): RIGHT SHOULDER SX, COLONOSCOPY, EGD sleeve gastrectomy 02-01-18 Past Anesthesia/Blood Transfusion Reactions: No Reported Reaction Additional Past Anesthesia/Blood Transfusion Reaction / Comment(s): Pt states that in June [address] Mckeon attempted to perform an EGD with dilation, the procedure had to be cancelled because she experienced a BP "way over 200 when they put me under" Past Psychological History: No Psychological Hx Reported Smoking Status: Never smoker Past Alcohol Use History: Daily Past Drug Use History: None Reported - Past Family History Mother Family Medical History: CVA/TIA Father Family Medical History: Myocardial Infarction (AR) General Exam Limitations: altered mental status, physical limitation General appearance: alert, in no apparent distress, anxious, in distress Head exam: Present: atraumatic, normocephalic, normal inspection Eye exam: Present: normal appearance, PERRL, EOMI. Absent: scleral icterus, conjunctival injection, periorbital swelling ENT exam: Present: normal exam, mucous membranes moist Neck exam: Present: normal inspection. Absent: tenderness, meningismus, lymphadenopathy Respiratory exam: Present: wheezes, accessory muscle use, decreased breath sounds, prolonged expiratory. Absent: respiratory distress, rales, rhonchi, stridor Cardiovascular Exam: Present: normal rhythm, tachycardia, normal heart sounds. Absent: systolic murmur, diastolic murmur, rubs, gallop, clicks GI/Abdominal exam: Present: soft, normal bowel sounds. Absent: distended, t enderness, guarding, rebound, rigid Extremities exam: Present: normal inspection, full ROM, normal capillary refill. Absent: tenderness, pedal edema, joint swelling, calf tenderness Back exam: Present: normal inspection Neurological exam: Present: alert, oriented X3, CN II-XII intact Psychiatric exam: Present: normal affect, normal mood Skin exam: Present: warm, dry, intact, normal color. Absent: rash Course Vital Signs 01/23/22 01/23/22 01/23/22 04:32 05:20 05:31 Temperature 100.1 F H 100.1 F H Pulse Rate 140 H 135 H 134 H Respiratory 18 16 16 Rate Blood Pressure 145/59 141/52 O2 Sat by Pulse 93 L 97 96 Oximetry 01/23/22 01/23/22 05:41 06:31 Temperature 100.2 F H Pulse Rate 133 H 75 Respiratory 16 21 Rate Blood Pressure 132/50 103/60 O2 Sat by Pulse 96 95 Oximetry - Reevaluation(s) Reevaluation #1: 01/23/22 05:24 Medical record is reviewed CVA, code stroke is called on patient arrival despite being wake up stroke no TP A - Consultations Consultation #1: Spoke with Dr. Abreu who will admit this patient Consultation #2: Did speak with neuro interventional she states no intervention for this patient Medical Decision Making - Medical Decision Making 68 female to the emergency department with wakeup stroke no TPA as needed. Patient will be admitted for persistent neurological evaluation and treatment - Lab Data Result diagrams: 01/23/22 04:52 01/23/22 04:52 Lab Results 01/23/22 01/23/22 01/23/22 Range/Units 04:52 04:52 04:52 WBC 9.3 (3.8-10.6) k/uL RBC 3.89 (3.80-5.40) m/uL Hgb 10.7 L (11.4-16.0) gm/dL Hct 33.5 L (34.0-46.0) % MCV 86.1 (80.0-100.0) fL MCH 27.5 (25.0-35.0) pg MCHC 32.0 (31.0-37.0) g/dL RDW 13.4 (11.5-15.5) % Plt Count 205 (150-450) k/uL MPV 9.6 Neutrophils % 88 % Lymphocytes % 3 % Monocytes % 6 % Eosinophils % 1 % Basophils % 0 % Neutrophils # 8.2 H (1.3-7.7) k/uL Lymphocytes # 0.3 L (1.0-4.8) k/uL Monocytes # 0.5 (0-1.0) k/uL Eosinophils # 0.1 (0-0.7) k/uL Basophils # 0.0 (0-0.2) k/uL Hypochromasia Slight PT 12.1 H (9.0-12.0) sec INR 1.2 H (<1.2) APTT 24.9 (22.0-30.0) sec Sodium 137 (137-145) mmol/L Potassium 5.2 H (3.5-5.1) mmol/L Chloride 103 (98-107) mmol/L Carbon Dioxide 25 (22-30) mmol/L Anion Gap 9 mmol/L BUN 14 (7-17) mg/dL Creatinine 0.66 (0.52-1.04) mg/dL Est GFR (CKD-EPI)AfAm >90 (>60 ml/min/1.73 sqM) Est GFR (CKD-EPI)NonAf 85 (>60 ml/min/1.73 sqM) Glucose 110 H (74-99) mg/dL POC Glucose (mg/dL) (70-110) mg/dL POC Glu Welder Setter Resistance Machine ID Plasma Lactic Acid Ervin (0.7-2.0) mmol/L Calcium 8.1 L (8.4-10.2) mg/dL Phosphorus 4.0 (2.5-4.5) mg/dL Magnesium 2.0 (1.6-2.3) mg/dL Total Bilirubin 1.1 (0.2-1.3) mg/dL AST 46 H (14-36) U/L ALT 24 (4-34) U/L Alkaline Phosphatase 108 (38-126) U/L Ammonia (<30) umol/L NT-Pro-B Natriuret Pep pg/mL Total Protein 6.6 (6.3-8.2) g/dL Albumin 3.3 L (3.5-5.0) g/dL Serum Alcohol <10 mg/dL 01/23/22 01/23/22 01/23/22 Range/Units 04:52 04:52 05:33 WBC (3.8-10.6) k/uL RBC (3.80-5.40) m/uL Hgb (11.4-16.0) gm/dL Hct (34.0-46.0) % MCV (80.0-100.0) fL MCH (25.0-35.0) pg MCHC (31.0-37.0) g/dL RDW (11.5-15.5) % Plt Count (150-450) k/uL MPV Neutrophils % % Lymphocytes % % Monocytes % % Eosinophils % % Basophils % % Neutrophils # (1.3-7.7) k/uL Lymphocytes # (1.0-4.8) k/uL Monocytes # (0-1.0) k/uL Eosinophils # (0-0.7) k/uL Basophils # (0-0.2) k/uL Hypochromasia PT (9.0-12.0) sec INR (<1.2) APTT (22.0-30.0) sec Sodium (137-145) mmol/L Potassium (3.5-5.1) mmol/L Chloride (98-107) mmol/L Carbon Dioxide (22-30) mmol/L Anion Gap mmol/L BUN (7-17) mg/dL Creatinine (0.52-1.04) mg/dL Est GFR (CKD-EPI)AfAm (>60 ml/min/1.73 sqM) Est GFR (CKD-EPI)NonAf (>60 ml/min/1.73 sqM) Glucose (74-99) mg/dL POC Glucose (mg/dL) 108 (70-110) mg/dL POC Glu Wel[employer] Setter Resistance Machine ID Shari Tobias Plasma Lactic Acid Ervin 1.0 (0.7-2.0) mmol/L Calcium (8.4-10.2) mg/dL Phosphorus (2.5-4.5) mg/dL Magnesium (1.6-2.3) mg/dL Total Bilirubin (0.2-1.3) mg/dL AST (14-36) U/L ALT (4-34) U/L Alkaline Phosphatase (38-126) U/L Ammonia 14 (<30) umol/L NT-Pro-B Natriuret Pep 3300 pg/mL Total Protein (6.3-8.2) g/dL Albumin (3.5-5.0) g/dL Serum Alcohol mg/dL - EKG Data -: EKG Interpreted by Me (EKG shows a flutter 140 QRS 73 QTC 350) - Radiology Data Radiology results: report reviewed (CT brain Cspine is negative for acute disease), image reviewed Critical Care Time Critical Care Time: Yes Total Critical Care Time: 31 Disposition Clinical Impression: Lung mass, Altered mental status, CVA (cerebral vascular accident), Atrial flutter with rapid ventricular response Disposition: ADMITTED IP TO THIS HOSP Condition: Fair Is patient prescribed a controlled substance at d/c from ED?: No Time of Disposition: 06:25
[2022-01-23] MEDS ORDERED: METOPROLOL TARTRATE 5 MG/5 ML VIAL IVP STA (04:49)
[2022-01-23] MEDS ORDERED: DILTIAZEM 5 MG/ML 5 ML VIAL IVP STA (04:49)
--- NOTE | 2022-01-23 05:27 | XR ---
EXAMINATION TYPE: XR chest 1V portable DATE OF EXAM: 01/23/2022 COMPARISON: 12/30/2021 HISTORY: Altered mental status TECHNIQUE: Single view FINDINGS: Heart is borderline enlarged. There is infiltrate and atelectasis right lower lobe. No obvi ous heart failure. There is right shoulder prosthesis. Left lung is fairly clear. There are chest nella ds. IMPRESSION: Right lower lobe infiltrate and atelectasis. Right pleural effusion. No definite heart fa ilure. Lung abnormalities are essentially new compared to old exam.
[2022-01-23 05:35] LABS: Glucose,Whole Blood 108 mg/dL (70-110)
--- NOTE | 2022-01-23 05:45 | CT ---
EXAMINATION TYPE: CT brain wo con DATE OF EXAM: 01/23/2022 COMPARISON: 04/13/2019 HISTORY: Weakness, AMS CT DLP: mGycm Automated exposure control for dose reduction was used. Ventricles have fairly normal size. There is no mass effect. There is subtle hypodensity in the right cerebral hemisphere involving the right temporal lobe. There is no midline shift. No evidence of int racranial hemorrhage. Calvarium is intact. There is normal aeration of the mastoid sinuses. The sella turcica is normal. IMPRESSION: There is some subtle hypodensity in the right temporal lobe which appears new compared to old exam an d could be an acute right middle cerebral artery infarct.
[2022-01-23 05:48] LABS: Basophils % (A) 0 %; Eosinophils # (A) 0.1 k/uL (0-0.7); Eosinophils % (A) 1 %; HCT 33.5 % (34.0-46.0); HGB 10.7 gm/dL (11.4-16.0); Hypochromasia Slight; Lymphocytes # (A) 0.3 k/uL (1.0-4.8); Lymphocytes % (A) 3 %; MCH 27.5 pg (25.0-35.0); MCV 86.1 fL (80.0-100.0); Mean Platelet Volume 9.6; Monocytes # (A) 0.5 k/uL (0-1.0); Monocytes % (A) 6 %; Neutrophils # (A) 8.2 k/uL (1.3-7.7); Neutrophils % (A) 88 %; Platelet Count 205 k/uL (150-450); RBC 3.89 m/uL (3.80-5.40); RDW 13.4 % (11.5-15.5); WBC 9.3 k/uL (3.8-10.6)
--- NOTE | 2022-01-23 05:54 | CT ---
EXAMINATION TYPE: CT angio head neck DATE OF EXAM: 01/23/2022 COMPARISON: None HISTORY: Weakness, AMS CT DLP: 1756.6 mGycm Automated exposure control for dose reduction was used. CONTRAST: Performed with IV Contrast, patient injected with 65ml mL of Isovue 370. Images obtained from the aortic arch to the vertex of the brain with the IV contrast. There are Three -D postprocessed images. There is normal branching pattern of the great vessels on the aortic arch. There is large right pleur al effusion. There is arterial flow in both subclavian arteries. There is arterial flow in the common internal and external carotid arteries bilaterally. There is fairly wide patency of the carotid karen ry bifurcations. No significant plaque formation. There is arterial flow in both vertebral arteries. There is arterial flow in the vertebrobasilar artery system. No evidence of carotid or vertebral karen ry aneurysm or dissection. There is arterial flow in the anterior middle and posterior cerebral arteries bilaterally. There appe ars to be abrupt termination of a branch of the right middle cerebral artery at the anterior right sy lvian fissure. No mass effect. No evidence of aneurysm or neovascularity. No evidence of stenosis of the anterior an d posterior cerebral arteries. The left middle cerebral artery appears fairly normal. There is normal enhancement of the venous sinuses. IMPRESSION: There is single major branch of the right middle cerebral artery which appears terminated due to thro mbosis at the anterior right sylvian fissure. No significant angiographic abnormality of the neck.
[2022-01-23 06:09] LABS: INR 1.2 (<1.2); Partial Thromboplastin Time 24.9 sec (22.0-30.0); Prothrombin Time 12.1 sec (9.0-12.0)
[2022-01-23 06:31] LABS: ALT 24 U/L (4-34); African American GFR (CKD) >90 (>60 ml/min/1.73 sqM); Alcohol <10 mg/dL; Anion Gap 9 mmol/L; Blood Urea Nitrogen 14 mg/dL (7-17); Calcium 8.1 mg/dL (8.4-10.2); Carbon Dioxide 25 mmol/L (22-30); Chloride 103 mmol/L (98-107); Glucose 110 mg/dL (74-99); Non-African American GFR(CKD) 85 (>60 ml/min/1.73 sqM); Sodium 137 mmol/L (137-145)
[2022-01-23 06:41] LABS: AST 46 U/L (14-36); Albumin 3.3 g/dL (3.5-5.0); Alkaline Phosphatase 108 U/L (38-126); Potassium 5.2 mmol/L (3.5-5.1)
[2022-01-23 06:42] LABS: Total Bilirubin 1.1 mg/dL (0.2-1.3); Total Protein 6.6 g/dL (6.3-8.2)
[2022-01-23] MEDS ORDERED: ASPIRIN 325 MG TAB PO STA (06:47)
[2022-01-23] MEDS: SODIUM CHLORIDE 0.9% 1,000 ML IV SCH ×2 (07:07→15:22)
[2022-01-23] MEDS ORDERED: TICAGRELOR 90 MG TAB PO STA (07:11)
[2022-01-23] MEDS: HYDROcodone/APAP 10-325MG 1 EACH TAB PO PRN (11:37)
--- NOTE | 2022-01-23 12:00 | P.CNNES ---
History of Present Illness Consult date: 01/23/22 Requesting physician: Bill Schneider Reason for Consult: cva History of Present Illness: This is a 76-year-old woman with history of advanced bronchogenic carcinoma with skeletal metastasis and biopsy consistent with metastatic pulmonary adenocarcinoma, atrial fibrillation on eliquis, former tobacco use who present to the hospital because of confusion and weakness. History is obtained from medical record and the patient's nurse since patient is not a great historian. Patient presents to our facility on 01/23/2022 around 4:31 AM. Some of the history is obtained from medical records and patient's nurse. Per ED note, patient went to bed at 8 PM last night and woke up around 5:30 AM with confusion and weakness. She had decreased responsiveness. Per the patient's nurse is seems the patient has right gaze deviation with left facial weakness upon speaking to the family this is new. Patient is on home dose of eliquis 5 mg a tablet twice a day. Patient stated that she's taking anticoagulation and stated that she has not missed her medication to her knowledge. As stated the patient has history of advanced bronchogenic carcinoma with metastasis and has started radiation treatment. Patient was recently discharged from our facility on 01/22/2022 again she had a biopsy consistent with metastatic pulmonary adenocarcinoma and started the recent radiation therapy. As a result a stroke code was activated by the ED team. Patient initial vital signs his blood pressure 145 or 59, heart rate 140, tempe rature of 100.1 Fahrenheit oral, respiratory rate of 18 and pulse ox of 93% room air. T-max of 100.2 Fahrenheit. White blood cell is 9.3 thousand. Initial serum glucose is 110 potassium 5.2 AST is 46 troponin is 0.665. Serum alcohol was less than 10 SARS-COV2 PCR is not detected. CT of the head is reported as there is some subtle hypodensity in the right temporal lobe which appears new compared to old exam and could be acute right middle cerebral artery infarct. I spoke with reading radiologist today (Dr. Figueroa and he agree with report). I personally reviewed that a CT of the head and I agree there is some septal hypodensity over the right temporal parietal region but also I felt like as there is subacute infarct over the left temporal occipital region. CT angiography of the head and neck was reported as there is single major branch of the right middle cerebral artery which appears terminated due to thrombosis at anterior right sylvian fissure no significant angiographic abnormality of the neck. I spoke with reading radiologist today (Dr. Figueroa and he agree with report). The ED team spoke with the stroke attending (Dr. Saxena) and no IV tpa since outside window and risk outweigh benefit. Also documented no intervention. EKG is reported as atrial flutter/tachycardia with rapid ventricular response. Review of Systems Review of system: The 12 point system was reviewed and apparent positive and negative per HPI. Past Medical History Past Medical History: Eye Disorder, Hypertension, Osteoarthritis (OA) Additional Past Medical History / Comment(s): Hx. of DIVERTICULITIS, LT EYE MAC. DEGEN. HTN resolved after surgery., dysphagia History of Any Multi-Drug Resistant Organisms: None Reported Past Surgical History: Bariatric Surgery, Cholecystectomy, Orthopedic Surgery, Tubal Ligation Additional Past Surgical History / Comment(s): RIGHT SHOULDER SX, COLONOSCOPY, EGD sleeve gastrectomy 02-01-18 Past Anesthesia/Blood Transfusion Reactions: No Reported Reaction Additional Past Anesthesia/Blood Transfusion Reaction / Comment(s): Pt states that in June [address] Mckeon attempted to perform an EGD with dilation, the procedure had to be cancelled because she experienced a BP "way over 200 when they put me under" Past Psychological History: No Psychological Hx Reported Smoking Status: Never smoker Past Alcohol Use History: Daily Past Drug Use History: None Reported - Past Family History Mother Family Medical History: CVA/TIA Father Family Medical History: Myocardial Infarction ([place]) Medications and Allergies Home Medications Medication Instructions Recorded Confirmed Type amLODIPine [Norvasc] 5 mg PO DAILY 06/27/20 01/23/22 History Apixaban [Eliquis] 5 mg PO BID #60 tab 12/30/21 01/23/22 Rx Budesonide-Formot 160-4.5 Mcg 2 puff INHALATION RT-BID each 12/31/21 01/23/22 Rx [Symbicort 160-4.5 Mcg Inhaler] Metoprolol Tartrate [Lopressor] 50 mg PO BID #60 tab 01/20/22 01/23/22 Rx ALPRAZolam [Xanax] 0.25 mg PO QID PRN tab 01/22/22 01/23/22 Rx HYDROcodone/APAP 10-325MG [[place] 1 each PO Q4HR PRN tab 01/22/22 01/23/22 Rx 10-325] Lidocaine 5% Patch [Lidoderm 5% 1 patch TOPICAL DAILY patch 01/22/22 01/23/22 Rx Patch] Magnesium Hydroxide [Milk of 2,400 mg PO DAILY PRN ml 01/22/22 01/23/22 Rx Magnesia Concentrate] Pantoprazole [Protonix] 40 mg PO AC-BRKFST tab 01/22/22 01/23/22 Rx Sennosides-Docusate Sodium 2 each PO BID tab 01/22/22 01/23/22 Rx [Senokot-S] fentaNYL 12MCG/HR PATCH [Duragesic 1 patch TRANSDERM Q72H 3 Days #1 01/22/22 01/23/22 Rx 12MCG/HR] patch polyethylene glycoL 3350 [Miralax] 17 gm PO BID packet 01/22/22 01/23/22 Rx Amiodarone [Cordarone] See Taper PO DIRECTED 01/23/22 01/23/22 History Allergies Allergy/AdvReac Type Severity Reaction Status Date / Time Penicillins Allergy Severe Anaphylaxis Verified 01/23/22 07:39 morphine Allergy Rash/Hives Verified 01/23/22 07:39 Physical Examination - Vital Signs Vital Signs: Vital Signs Temp Pulse Resp BP Pulse Ox 01/23/22 06:31 100.2 F H 75 21 103/60 95 01/23/22 05:41 133 H 16 132/50 96 01/23/22 05:31 134 H 16 141/52 96 01/23/22 05:20 100.1 F H 135 H 16 97 01/23/22 04:32 100.1 F H 140 H 18 145/59 93 L Intake and Output 01/22/22 01/23/22 01/23/22 22:59 06:59 14:59 Other: Weight 90.718 kg GENERAL: The patient is laying in bed and is not in acute distress. CHEST: The heart rate is regular rate rhythm. No murmurs to auscultation. LUNG: Clear to auscultation bilaterally no wheezing noted throughout. Not labored breathing. ABDOMEN/GI: Bowel sounds present in all 4 quadrants. No tenderness to palpation throughout. NEUROLOGICAL: Higher mental function: The patient is awake, alert, oriented to self, place and time. Patient is following simple commands. She is slow following commands. No aphasia. Is neglecting the left side. Cranial nerves: Has right gaze deviation. The pupils are round, equal and reactive to light. Unable to assess visual field because of cooperation. EOM: patient has forced right gaze deviation and not moving eye past midline or left side. Left lower Facial droop. Has mild to moderate dysarthria. Rest is unable to assess because of cooperation. Motor: The strength is able to lift left upper above gravity then drops to gravity. While lower is 2. Otherwise 5 over 5 throughout right side. Decrease tone over the left. side. Normal bulk. Cerebellum: Unable to assess because of cooperation. Sensation: In unable to assess because of cooperation but is neglecting the left side. Reflexes (right/left): 1+ throughout. Plantars are mute bilaterally. Results - Laboratory Findings CBC and BMP: 01/23/22 04:52 01/23/22 04:52 Abnormal Lab Findings: Abnormal Labs 01/23/22 01/23/22 01/23/22 04:52 04:52 04:52 Hgb 10.7 L Hct 33.5 L Neutrophils # 8.2 H Lymphocytes # 0.3 L PT 12.1 H INR 1.2 H Potassium 5.2 H Glucose 110 H Calcium 8.1 L AST 46 H Troponin I Albumin 3.3 L 01/23/22 04:52 Hgb Hct Neutrophils # Lymphocytes # PT INR Potassium Glucose Calcium AST Troponin I 0.665 H* Albumin Assessment and Plan Assessment: Left facial weakness, gaze deviation left hemiparesis is due to likely acute ischemic stroke. Rule out brain mets. No IV tpa since wake-up stroke. On CT reported right temporal but I also felt left temporal as well. Seems cardioembolic in nature (atrial flutter). Right MCA thrombus at anterior sylvian fissure per CTA History of advanced bronchogenic carcinoma with skeletal metastasis and biopsy consistent with metastatic pulmonary adenocarcinoma post radiation therapy Encephalopathy due to acute ischemic stroke. Rule out underlying aspiration pneumonia or other underlying infection Atrial flutter on eliquis Fever but no leukocytosis Elevated troponin Kyperkalemia Former tobacco use Plan: I ordered MRI of the brain with and without urgently. Ordered routine EEG because of the patient confusion to rule out any seizures Her patient's is on aspirin 325 daily as well as Brilinta 90mg bid (was loaded with one time ASA 325mg and Brilinta 180mg once by ED team). PLEASE AVOID ANTICOAGULATION FOR NOW TO AVOID HEMORRHAGIC CONVERSION (WILL WAIT FOR MRI AND WILL MAKE FURTHER RECOMMENDATION). On lipitor 80mg qhs for secondary stroke prophylaxis. Ordered 2-D echo. Lipid panel is ordered pending Consulted ID for fever Consulted cardiology since the patient was on Eliquis for atrial fibrillation/flutter but failed. I consulted oncology team. Continue neuro checks Cardiac monitoring PT OT and POLISHING WHEEL REPAIRER are consulted We'll defer the rest of the medical management to primary team For DVT prophylaxis started subq heparin 5000U every 8 hours. Patient condition is critical and appears poor because of advanced cancer and likely recent stroke. The plan is discussed with patient ED and ICU nurse. Thank you for the consultation Spend total of 35 minutes going over patient's history, reviewing imaging and going over the plan with nursing staff Time with Patient: Greater than 30
[2022-01-23] MEDS ORDERED: MAGNESIUM HYDROXIDE 2,400 MG/10 ML CUP PO PRN (12:37)
[2022-01-23] MEDS ORDERED: APIXABAN 5 MG TAB PO SCH (12:45)
[2022-01-23] MEDS: HYDROmorphone 1 MG/ML 1 ML SYRINGE IVP PRN (13:13)
[2022-01-23] MEDS: amLODIPine 5 MG TAB PO SCH (13:29)
[2022-01-23] MEDS: AMIODARONE 200 MG TAB PO SCH (13:29)
[2022-01-23] MEDS: LIDOCAINE 5% PATCH TOPICAL SCH (13:39)
[2022-01-23 14:16] LABS: Glucose,Whole Blood 127 mg/dL (70-110)
[2022-01-23] MEDS ORDERED: HEPARIN SODIUM,PORCINE/PF 5,000 UNIT/0.5 ML SYRINGE SQ SCH (16:00)
--- NOTE | 2022-01-23 16:38 | P.HPIM ---
History of Present Illness H&P Date: 01/23/22 Gracie Ybarra, is a 76-year-old female who presented to [facility] emergency room with a chief complaint of confusion weakness decreased responsiveness and left facial drooping. Patient was recently admitted to [facility] with low back pain with evidence of metastatic disease to the bone biopsy was done and revealed evidence of primary pulmonary cancer with metastatic disease she received radiation therapy and was discharged home on 01/22/2022 patient also has known history of atrial fibrillation maintained on Eliquis. She was evaluated in the emergency room vital examination on presentation revealed a temperature of 100.1 pulse 140 respiration 18 and blood pressure 145/59 pulse ox 93% on room air Laboratory data revealed a white blood count of 9.3 hemoglobin 10.7 platelet count 205 troponin 0.665 Testing in the emergency room revealed computed tomography scan of the brain revealed hypodensity in the right temporal lobe that could be an acute right mid dle cerebral artery infarct. 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 Patient was admitted to intensive care unit, neurology consultation was requested. Consultation was also placed for cardiology and oncology for follow-up. Past Medical History Past Medical History: Eye Disorder, Hypertension, Osteoarthritis (OA) Additional Past Medical History / Comment(s): Hx. of DIVERTICULITIS, LT EYE MAC. DEGEN. HTN resolved after surgery., dysphagia History of Any Multi-Drug Resistant Organisms: None Reported Past Surgical History: Bariatric Surgery, Cholecystectomy, Orthopedic Surgery, Tubal Ligation Additional Past Surgical History / Comment(s): RIGHT SHOULDER SX, COLONOSCOPY, EGD sleeve gastrectomy 02-01-18 Past Anesthesia/Blood Transfusion Reactions: No Reported Reaction Additional Past Anesthesia/Blood Transfusion Reaction / Comment(s): Pt states that in June [address] Mckeon attempted to perform an EGD with dilation, the procedure had to be cancelled because she experienced a BP "way over 200 when they put me under" Past Psychological History: No Psychological Hx Reported Smoking Status: Never smoker Past Alcohol Use History: Daily Past Drug Use History: None Reported - Past Family History Mother Family Medical History: CVA/TIA Father Family Medical History: Myocardial Infarction ([place]) Medications and Allergies Home Medications Medication Instructions Recorded Confirmed Type amLODIPine [Norvasc] 5 mg PO DAILY 06/27/20 01/23/22 History Apixaban [Eliquis] 5 mg PO BID #60 tab 12/30/21 01/23/22 Rx Budesonide-Formot 160-4.5 Mcg 2 puff INHALATION RT-BID each 12/31/21 01/23/22 Rx [Symbicort 160-4.5 Mcg Inhaler] Metoprolol Tartrate [Lopressor] 50 mg PO BID #60 tab 01/20/22 01/23/22 Rx ALPRAZolam [Xanax] 0.25 mg PO QID PRN tab 01/22/22 01/23/22 Rx HYDROcodone/APAP 10-325MG [[place] 1 each PO Q4HR PRN tab 01/22/22 01/23/22 Rx 10-325] Lidocaine 5% Patch [Lidoderm 5% 1 patch TOPICAL DAILY patch 01/22/22 01/23/22 Rx Patch] Magnesium Hydroxide [Milk of 2,400 mg PO DAILY PRN ml 01/22/22 01/23/22 Rx Magnesia Concentrate] Pantoprazole [Protonix] 40 mg PO AC-BRKFST tab 01/22/22 01/23/22 Rx Sennosides-Docusate Sodium 2 each PO BID tab 01/22/22 01/23/22 Rx [Senokot-S] fentaNYL 12MCG/HR PATCH [Duragesic 1 patch TRANSDERM Q72H 3 Days #1 01/22/22 01/23/22 Rx 12MCG/HR] patch polyethylene glycoL 3350 [Miralax] 17 gm PO BID packet 01/22/22 01/23/22 Rx Amiodarone [Cordarone] See Taper PO DIRECTED 01/23/22 01/23/22 History Allergies Allergy/AdvReac Type Severity Reaction Status Date / Time Penicillins Allergy Severe Anaphylaxis Verified 01/23/22 07:39 morphine Allergy Rash/Hives Verified 01/23/22 07:39 Physical Exam Vitals: Vital Signs Temp Pulse Resp BP Pulse Ox 01/23/22 11:47 84 18 135/50 95 01/23/22 11:42 100.2 F H 01/23/22 10:00 141 H 20 102/63 96 01/23/22 09:48 91 18 96 01/23/22 06:31 100.2 F H 75 21 103/60 95 01/23/22 05:41 133 H 16 132/50 96 01/23/22 05:31 134 H 16 141/52 96 01/23/22 05:20 100.1 F H 135 H 16 97 01/23/22 04:32 100.1 F H 140 H 18 145/59 93 L Intake and Output 01/22/22 01/23/22 01/23/22 22:59 06:59 14:59 Other: Weight 90.718 kg In general patient is alert and oriented, she has left facial drooping and right sided gaze HEENT head normocephalic and atraumatic Neck is supple no JVD no goiter no lymphadenopathy no carotid bruit Chest examination is clear to auscultation no crackles no wheezing Cardiac exam reveals regular heart sounds S1 and S2 no gallops no murmurs Abdomen is soft nontender no organomegaly with normal bowel sounds Extremity exam reveals no edema no cyanosis or clubbing Neurological examination reveals mental status patient is alert and oriented speech is fluent, there is left facial drooping and right sided gaze, motor exam reveals significant weakness on the left upper extremity which is at 1 out of 5, and weakness in the left lower extremity which is at 2 out of 5, there is some sensory deficit on the left side although unable to assess properly due to patient cooperation, reflexes are 1+ bilaterally and plantars are equivocal. Results CBC & Chem 7: 01/23/22 04:52 01/23/22 04:52 Labs: Abnormal Lab Results - Last 24 Hours (Table) 01/23/22 01/23/22 01/23/22 Range/Units 04:52 04:52 04:52 Hgb 10.7 L (11.4-16.0) gm/dL Hct 33.5 L (34.0-46.0) % Neutrophils # 8.2 H (1.3-7.7) k/uL Lymphocytes # 0.3 L (1.0-4.8) k/uL PT 12.1 H (9.0-12.0) sec INR 1.2 H (<1.2) Potassium 5.2 H (3.5-5.1) mmol/L Glucose 110 H (74-99) mg/dL Calcium 8.1 L (8.4-10.2) mg/dL AST 46 H (14-36) U/L Troponin I (0.000-0.034) ng/mL Albumin 3.3 L (3.5-5.0) g/dL 01/23/22 Range/Units 04:52 Hgb (11.4-16.0) gm/dL Hct (34.0-46.0) % Neutrophils # (1.3-7.7) k/uL Lymphocytes # (1.0-4.8) k/uL PT (9.0-12.0) sec INR (<1.2) Potassium (3.5-5.1) mmol/L Glucose (74-99) mg/dL Calcium (8.4-10.2) mg/dL AST (14-36) U/L Troponin I 0.665 H* (0.000-0.034) ng/mL Albumin (3.5-5.0) g/dL Assessment and Plan Plan: Acute ischemic stroke, right middle cerebral artery distribution Underlying history of atrial fibrillation Underlying history of lung cancer with metastatic bone disease Underlying history of hypertension Underlying history of hyperlipidemia Underlying history of COPD Underlying history of gastroesophageal reflux disease At this time patient is admitted to ICU She was evaluated by neurology and was started on Brillinta Cardiology consultation requested in that regard to atrial fibrillation Oncology consultation requested in regard lung cancer with metastatic bone disease Pain is well controlled at this time per patient CODE STATUS is no code Prognosis is guarded will follow closely
[2022-01-23] MEDS ORDERED: METOPROLOL TARTRATE 5 MG/5 ML VIAL IVP ONE (17:11)
[2022-01-23] MEDS ORDERED: DILTIAZEM DRIP BOLUS FROM BAG 1 MG SOLN IV STA (17:11)
[2022-01-23] MEDS ORDERED: DEXTROSE 5% IN WATER 100 ML with AMIODARONE 150 MG IV ONE (17:30)
[2022-01-23] MEDS ORDERED: AMIODARONE 360 MG in DEXTROSE 5% IN WATER 200 ML IV ONE ×2 (17:40)
[2022-01-23] MEDS ORDERED: CEFEPIME 2 GM in SODIUM CHLORIDE 0.9% 100 ML IVPB SCH (18:00)
[2022-01-23] MEDS: SYMBICORT 160-4.5 MCG INHALER INHALATION SCH (19:34)
[2022-01-23 19:43] LABS: Appearance,Urine Cloudy (Clear); Bacteria,Urine Few /hpf; Bilirubin,Urine Negative (Negative); Blood,Urine Small (Negative); Budding Yeast,Urine Few /hpf; Color,Urine Yellow; Glucose,Urine (UA) Negative (Negative); Hyaline Casts,Urine 33 /lpf (0-2); Ketones,Urine Negative (Negative); Leukocyte Esterase,Urine Large (Negative); Mucus,Urine Rare /hpf; Nitrite,Urine Negative (Negative); Protein,Urine 1+ (Negative); RBC,Urine 24 /hpf (0-5); Squamous Epithelial Cell,Urine 7 /hpf (0-4); Urobilinogen,Urine <2.0 mg/dL (<2.0); WBC,Urine 53 /hpf (0-5)
--- NOTE | 2022-01-23 22:02 | EEG ---
ELECTROENCEPHALOGRAM REPORT CLINICAL HISTORY: This is a 76-year-old woman with altered mental status. The video EEG is obtained to evaluate for seizure epileptiform activity. RELEVANT MEDICATION: The patient is not on any antiepileptic drugs. EEG TYPE: A routine 21-channel EEG is performed with video using the 10/20 electrode placement system. DESCRIPTION: Wakefulness is only obtained. During awake state, the posterior-dominant rhythm consists of [id number] voltage of 8 to 9 hertz activity that is well modulated and somewhat poorly sustained. There was no physiological stage 2 sleep architecture seen. There is mild to moderate amount of left hemispheric delta slowing seen. Interictal and ictal is none. ACTIVATION PROCEDURE: Photic stimulation did not evoke a posterior driving response. There is no abnormality during the photic stimulation. Hyperventilation is not performed. CLINICAL INTERPRETATION: This is an abnormal routine EEG. The background is normal. The focal slowing over the left hemisphere is likely suggestive of focal cerebral dysfunction. Otherwise, there is no seizure during the study or epileptiform discharges. Clinical correlation is recommended. MMGURU / JOHNN: [id number] /
[2022-01-23] MEDS: TICAGRELOR 90 MG TAB PO SCH (22:13)
[2022-01-23] MEDS: ATORVASTATIN 80 MG TAB PO SCH (22:13)
[2022-01-23] MEDS: SENNOSIDES-DOCUSATE SODIUM 1 EACH TAB PO SCH (22:13)
[2022-01-23] MEDS: CEFEPIME 2 GM in SODIUM CHLORIDE 0.9% 100 ML IVPB SCH (22:17)
[2022-01-23] MEDS: ALPRAZolam 0.25 MG TAB PO PRN (22:28)
[2022-01-23] MEDS: METOPROLOL TARTRATE 50 MG TAB PO SCH (22:29)
--- NOTE | 2022-01-23 22:50 | P.CONS ---
History of Present Illness - Reason for Consult Consult date: 01/23/22 Fever Requesting physician: Kevyn Akers - Chief Complaint Weakness x few days - History of Present Illness Patient is a 76-year-old female with a past medical he significant for metastatic bronchogenic carcinoma atrial fibrillation presented to hospital for confusion and weakness apparently the patient was just discharged from this facility yesterday evening with the patient brought back to the hospital concerning for weakness and some mental status changes with the patient being more lethargic per the daughter who provided most of the history, patient on my evaluation was awake and alert and she was aware that she is more macular in the hospital patient denies having any headache or URI symptoms denies any chest pain or shortness but she did have some covid19 of the sputum, did have some nausea but no vomiting no abdominal pain no diarrhea, patient on presentation to the hospital did have low-grade fever 100.1 with a subsequent temperature 100.2 F mild hypoxia O2 sats 93% patient is currently on 3 L nasal cannula patient did have a normal white count kidney function has been normal liver enzymes are normal did have a positive UA with a large leukocyte esterase with 3 WBC influenza RSV and COVID testing was negative patient did have a chest x-ray right lower lobe infiltrate or atelectasis CT of the brain subtle hypodensity in the right temporal lobe which appears new compared with old exam patient has been admitted to the ICU infectious was consulted because of the fever and need for antibiotic therapy Review of Systems Positive point has been mentioned in the HPI rest of the systems are negative Past Medical History Past Medical History: Eye Disorder, Hypertension, Osteoarthritis (OA) Additional Past Medical History / Comment(s): Hx. of DIVERTICULITIS, LT EYE MAC. DEGEN. HTN resolved after surgery., dysphagia History of Any Multi-Drug Resistant Organisms: None Reported Past Surgical History: Bariatric Surgery, Cholecystectomy, Orthopedic Surgery, Tubal Ligation Additional Past Surgical History / Comment(s): RIGHT SHOULDER SX, COLONOSCOPY, EGD sleeve gastrectomy 02-01-18 Past Anesthesia/Blood Transfusion Reactions: No Reported Reaction Additional Past Anesthesia/Blood Transfusion Reaction / Comm: Pt states that in June [address] Mckeon attempted to perform an EGD with dilation, the procedure had to be cancelled because she experienced a BP "way over 200 when they put me under" Past Psychological History: No Psychological Hx Reported Smoking Status: Never smoker Past Alcohol Use History: Daily Past Drug Use History: None Reported - Past Family History Mother Family Medical History: CVA/TIA Father Family Medical History: Myocardial Infarction ([place]) Medications and Allergies Home Medications Medication Instructions Recorded Confirmed Type amLODIPine [Norvasc] 5 mg PO DAILY 06/27/20 01/23/22 History Budesonide-Formot 160-4.5 Mcg 2 puff INHALATION RT-BID each 12/31/21 01/23/22 Rx [Symbicort 160-4.5 Mcg Inhaler] Metoprolol Tartrate [Lopressor] 50 mg PO BID #60 tab 01/20/22 01/23/22 Rx Lidocaine 5% Patch [Lidoderm 5% 1 patch TOPICAL DAILY patch 01/22/22 01/23/22 Rx Patch] Magnesium Hydroxide [Milk of 2,400 mg PO DAILY PRN ml 01/22/22 01/23/22 Rx Magnesia Concentrate] Pantoprazole [Protonix] 40 mg PO AC-BRKFST tab 01/22/22 01/23/22 Rx Sennosides-Docusate Sodium 2 each PO BID tab 01/22/22 01/23/22 Rx [Senokot-S] polyethylene glycoL 3350 [Miralax] 17 gm PO BID packet 01/22/22 01/23/22 Rx Amiodarone [Cordarone] See Taper PO DIRECTED 01/23/22 01/23/22 History ALPRAZolam [Xanax] 0.25 mg PO QID PRN 3 Days #12 tab 01/31/22 Rx Atorvastatin [Lipitor] 80 mg PO HS tab 01/31/22 Rx HYDROcodone/APAP 10-325MG [[place] 1 each PO Q4HR PRN 3 Days #18 tab 01/31/22 Rx 10-325] HYDROcodone/APAP 10-325MG [[place] 1 each PO Q6HR PRN 3 Days #12 tab 01/31/22 Rx 10-325] Rivaroxaban [Xarelto] 20 mg PO W/SUPPER tab 01/31/22 Rx fentaNYL 12MCG/HR PATCH [Durages[place] 1 patch TRANSDERM Q72H 3 Days #1 01/31/22 Rx 12MCG/HR] patch fentaNYL 12MCG/HR PATCH [Duragesic 1 patch TRANSDERM Q72H 3 Days #1 01/31/22 Rx 12MCG/HR] patch Allergies Allergy/AdvReac Type Severity Reaction Status Date / Time Penicillins Allergy Severe Anaphylaxis Verified 01/23/22 07:39 morphine Allergy Rash/Hives Verified 01/23/22 07:39 Physical Exam Vitals: Vital Signs Temp Pulse Resp BP Pulse Ox 01/23/22 10:00 141 H 20 102/63 96 01/23/22 09:48 91 18 96 01/23/22 06:31 100.2 F H 75 21 103/60 95 01/23/22 05:41 133 H 16 132/50 96 01/23/22 05:31 134 H 16 141/52 96 01/23/22 05:20 100.1 F H 135 H 16 97 01/23/22 04:32 100.1 F H 140 H 18 145/59 93 L Intake and Output 01/22/22 01/23/22 01/23/22 22:59 06:59 14:59 Other: Weight 90.718 kg GENERAL DESCRIPTION: Elderly female lying in bed, no distress. No tachypnea or accessory muscle of respiration use. HEENT: Shows Pallor , no scleral icterus. Oral mucous membrane is dry. No ph aryngeal erythema or thrush NECK: Trachea central, no thyromegaly. LUNGS: Unlabored breathing. Decreased breath sounds [place]. No wheeze or crackle. HEART: S1, S2, regular rate and rhythm. No loud murmur ABDOMEN: Soft, no tenderness , guarding or rigidity, no organomegaly EXTREMITIES: No edema of feet. SKIN: No rash, no masses palpable. NEUROLOGICAL: The patient is lethargic but arousable, mood and affect normal. Results CBC & Chem 7: 01/31/22 06:10 01/31/22 06:10 Labs: Abnormal Lab Results - Last 24 Hours (Table) 01/23/22 01/23/22 01/23/22 Range/Units 04:52 04:52 04:52 Hgb 10.7 L (11.4-16.0) gm/dL Hct 33.5 L (34.0-46.0) % Neutrophils # 8.2 H (1.3-7.7) k/uL Lymphocytes # 0.3 L (1.0-4.8) k/uL PT 12.1 H (9.0-12.0) sec INR 1.2 H (<1.2) Potassium 5.2 H (3.5-5.1) mmol/L Glucose 110 H (74-99) mg/dL Calcium 8.1 L (8.4-10.2) mg/dL AST 46 H (14-36) U/L Troponin I (0.000-0.034) ng/mL Albumin 3.3 L (3.5-5.0) g/dL 01/23/22 Range/Units 04:52 Hgb (11.4-16.0) gm/dL Hct (34.0-46.0) % Neutrophils # (1.3-7.7) k/uL Lymphocytes # (1.0-4.8) k/uL PT (9.0-12.0) sec INR (<1.2) Potassium (3.5-5.1) mmol/L Glucose (74-99) mg/dL Calcium (8.4-10.2) mg/dL AST (14-36) U/L Troponin I 0.665 H* (0.000-0.034) ng/mL Albumin (3.5-5.0) g/dL Assessment and Plan (1) Fever Status: Acute Code(s): R50.9 - FEVER, UNSPECIFIED SNOMED Code(s): 574517227 Plan: 1patient with a low-grade fever and this patient presented to hospital with me ntal status changes weakness with concern for a CVA patient did have a positive UA could be likely contributing to her low-grade fever and also right lower lobe infiltrate concerning for possible pneumonia in this patient who do have a history of metastatic bronchogenic carcinoma with recent admission to the hospital with report for the resistant gram-negative while waiting for the culture to finalize. 2- Blood cultures will be obtained and we will also check a CRP and a procalcitonin 3-patient to have a penicillin allergy no clear anaphylaxis we will add cefepime while waiting for the culture to finalize We will follow on clinical condition and cultures to further adjust medication if needed Thank you for this consultation will follow this patient along with you Time with Patient: Greater than 30
[2022-01-23] MEDS: AMIODARONE 450 MG in DEXTROSE 5% IN WATER 250 ML IV SCH ×2 (22:54)
[2022-01-24] MEDS ORDERED: ACETAMINOPHEN TAB 325 MG TAB PO PRN (02:26)
[2022-01-24] MEDS: DILTIAZEM 125 MG in SODIUM CHLORIDE 0.9% 100 ML IV SCH ×2 (03:53→09:12)
[2022-01-24] MEDS: SYMBICORT 160-4.5 MCG INHALER INHALATION SCH ×2 (07:12→19:25)
--- NOTE | 2022-01-24 07:55 | P.CRDCN ---
History of Present Illness Consult date: 01/24/22 Chief complaint: Change in mental status History of present illness: This is a 76-year-old female patient was known to her service from before with a past medical history significant for lung cancer with metastasis to the bone documented on biopsy was performed recently as well as history of paroxysmal atrial fibrillation. We consulted to see the patient in the intensive care unit for further evaluation of atrial fibrillation with rapid ventricular response. The patient was discharge in the hospital recently after she was admitted with a trial fibrillation with rapid ventricular response and that was a new diagnosis to her and she was discharged on oral anticoagulation with Eliquis. During her last hospital stay she underwent an echo which revealed preserved left ventricle systolic function and right ventricular systolic function was no significant valvular abnormalities. This time she was brought to the emergency department was change in mental status as well as evidence of focal neurologic finding with left sided weakness associated with some slurred speech and confusion/change in mental status. Further investigation in the emergency department was performed including computed tomography scan of the brain which showed hypodense area in the right temporal lobe. Neurology was consulted. Beside that she underwent an EKG initially and that showed atrial fibrillation with rapid ventricular response but subsequently the patient was started on IV Cardizem and IV amiodarone and converted to normal sinus mechanism. She was seen and evaluated this morning. She has been maintaining sinus rhythm was sinus bradycardia and her pressure started going low. I'm going to stop the Cardizem IV and continue amiodarone IV. She is unable to take any medication orally at this point. We are going to discuss with the neurology service to start the patient on heparin IV for safe from the urology standpoint of view. The patient is in process of having MRI of the brain in the next 12 hours. No indication that she is experie ncing any symptoms of chest pain or chest discomfort or any shortness of breath at this point. She is somewhat poor historian giving the recent diagnosis of stroke. Past Medical History Past Medical History: Eye Disorder, Hypertension, Osteoarthritis (OA) Additional Past Medical History / Comment(s): Hx. of DIVERTICULITIS, LT EYE MAC. DEGEN. HTN resolved after surgery., dysphagia History of Any Multi-Drug Resistant Organisms: None Reported Past Surgical History: Bariatric Surgery, Cholecystectomy, Orthopedic Surgery, Tubal Ligation Additional Past Surgical History / Comment(s): RIGHT SHOULDER SX, COLONOSCOPY, EGD sleeve gastrectomy 02-01-18 Past Anesthesia/Blood Transfusion Reactions: No Reported Reaction Additional Past Anesthesia/Blood Transfusion Reaction / Comment(s): Pt states that in June [address] Mckeon attempted to perform an EGD with dilation, the procedure had to be cancelled because she experienced a BP "way over 200 when they put me under" Past Psychological History: No Psychological Hx Reported Smoking Status: Never smoker Past Alcohol Use History: Daily Past Drug Use History: None Reported - Past Family History Mother Family Medical History: CVA/TIA Father Family Medical History: Myocardial Infarction ([place]) Medications and Allergies Home Medications Medication Instructions Recorded Confirmed Type amLODIPine [Norvasc] 5 mg PO DAILY 06/27/20 01/23/22 History Apixaban [Eliquis] 5 mg PO BID #60 tab 12/30/21 01/23/22 Rx Budesonide-Formot 160-4.5 Mcg 2 puff INHALATION RT-BID each 12/31/21 01/23/22 Rx [Symbicort 160-4.5 Mcg Inhaler] Metoprolol Tartrate [Lopressor] 50 mg PO BID #60 tab 01/20/22 01/23/22 Rx ALPRAZolam [Xanax] 0.25 mg PO QID PRN tab 01/22/22 01/23/22 Rx HYDROcodone/APAP 10-325MG [[place] 1 each PO Q4HR PRN tab 01/22/22 01/23/22 Rx 10-325] Lidocaine 5% Patch [Lidoderm 5% 1 patch TOPICAL DAILY patch 01/22/22 01/23/22 Rx Patch] Magnesium Hydroxide [Milk of 2,400 mg PO DAILY PRN ml 01/22/22 01/23/22 Rx Magnesia Concentrate] Pantoprazole [Protonix] 40 mg PO AC-BRKFST tab 01/22/22 01/23/22 Rx Sennosides-Docusate Sodium 2 each PO BID tab 01/22/22 01/23/22 Rx [Senokot-S] fentaNYL 12MCG/HR PATCH [Duragesic 1 patch TRANSDERM Q72H 3 Days #1 01/22/22 01/23/22 Rx 12MCG/HR] patch polyethylene glycoL 3350 [Miralax] 17 gm PO BID packet 01/22/22 01/23/22 Rx Amiodarone [Cordarone] See Taper PO DIRECTED 01/23/22 01/23/22 History Allergies Allergy/AdvReac Type Severity Reaction Status Date / Time Penicillins Allergy Severe Anaphylaxis Verified 01/23/22 07:39 morphine Allergy Rash/Hives Verified 01/23/22 07:39 Physical Exam Vitals: Vital Signs Temp Pulse Pulse Resp BP BP Pulse Ox 01/23/22 20:00 97.4 F L 76 19 95/54 93 L 01/23/22 16:00 98.4 F 70 14 120/51 95 01/23/22 11:47 84 18 135/50 95 01/23/22 11:42 100.2 F H 01/23/22 10:00 141 H 20 102/63 96 01/23/22 09:48 91 18 96 Intake and Output 01/23/22 01/24/22 01/24/22 22:59 06:59 14:59 Intake Total 200 Output Total 500 Balance -300 Intake: IV 200 Sodium Chloride 0.9% 1, 200 000 ml @ 100 mls/hr IV . Q10H [facility] Rx#:[id number] Output: Urine 500 Other: Voiding Method Bedpan # Voids 1 Weight 87.2 kg - Constitutional General appearance: no acute distress - Respiratory Respiratory: bilateral: diminished - Cardiovascular Rhythm: regular Abnormal Heart Sounds: systolic murmur Results 01/23/22 04:52 01/23/22 04:52 Current Medications Generic Name Dose Route Start Last Admin Trade Name Freq PRN Reason Stop Dose Admin Acetaminophen 650 mg 01/24/22 02:26 01/24/22 03:50 Acetaminophen Tab 325 Mg Tab PO 650 mg Q6HR PRN Administration Fever and/ or Pain Hydrocodone Bitart/Acetaminophen 1 each 01/23/22 11:24 01/23/22 11:37 Hydrocodone/Apap 10-325mg 1 Each Tab PO 1 each Q6HR PRN Administration Pain Alprazolam 0.25 mg 01/23/22 12:36 01/23/22 22:28 Alprazolam 0.25 Mg Tab PO 0.25 mg QID PRN Administration Anxiety Amiodarone HCl 200 mg 01/23/22 12:45 01/23/22 13:29 Amiodarone 200 Mg Tab PO 200 mg DAILY [facility] Administration Amlodipine Besylate 5 mg 01/23/22 12:45 01/23/22 13:29 Amlodipine 5 Mg Tab PO 5 mg DAILY [facility] Administration Aspirin 81 mg 01/24/22 09:00 Aspirin 81 Mg PO DAILY [facility]AN[facility] Atorvastatin Calcium 80 mg 01/23/22 21:00 01/23/22 22:13 Atorvastatin 80 Mg Tab PO 80 mg HS [facility]AN[facility]A Administration Budesonide/Formoterol Fumarate 2 puff 01/23/22 20:00 01/24/22 07:12 Symbicort 160-4.5 Mcg Inhaler INHALATION 2 puff RT-BID [facility] Administration Fentanyl 1 patch 01/25/22 09:00 Fentanyl 12mcg/Hr Patch TRANSDERM Q72H [facility] Protocol Hydromorphone HCl 1 mg 01/23/22 11:24 01/23/22 13:13 Hydromorphone 1 Mg/Ml 1 Ml Syringe IVP 1 mg Q3HR PRN Administration Moderate to Severe Pain (4-10) Sodium Chloride 1,000 mls @ 100 mls/hr 01/23/22 07:00 01/23/22 15:22 Saline 0.9% IV 100 mls/hr .Q10H [facility] Administration Amiodarone HCl 450 mg/ 250 mls @ 16.667 mls/hr 01/23/22 23:40 01/23/22 22:54 Dextrose/Water IV 01/24/22 17:39 0.5 mg/min .Q15H [facility]AN[facility] 16.667 mls/hr Administration Protocol 0.5 MG/MIN Diltiazem HCl 125 mg/ Sodium 125 mls @ 10 mls/hr 01/23/22 17:30 01/24/22 03:53 Chloride IV 10 mg/hr .[id number] [facility]AN[facility]A 10 mls/hr Administration 10 MG/HR Cefepime HCl 2 gm/ Sodium 100 mls @ 25 mls/hr 01/23/22 22:00 01/23/22 22:17 Chloride IVPB 25 mls/hr Q8H [facility] Administration Protocol Lidocaine 1 patch 01/23/22 12:45 01/23/22 13:39 Lidocaine 5% Patch TOPICAL 1 patch DAILY [facility] Administration Protocol Magnesium Hydroxide 2,400 mg 01/23/22 12:37 Magnesium Hydroxide 2,400 Mg/10 Ml Cup PO DAILY PRN Constipation Metoprolol Tartrate 50 mg 01/23/22 21:00 01/23/22 22:29 Metoprolol Tartrate 50 Mg Tab PO Not Given BID [facility] Pantoprazole Sodium 40 mg 01/24/22 07:30 Pantoprazole 40 Mg Tablet PO AC-BRKFST [facility] Senna/Docusate Sodium 2 each 01/23/22 21:00 01/23/22 22:13 Sennosides-Docusate Sodium 1 Each Tab PO 2 each BID [facility] Administration Ticagrelor 90 mg 01/23/22 21:00 01/23/22 22:13 Ticagrelor 90 Mg Tab PO 90 mg BID [facility] Administration Intake and Output 01/23/22 01/24/22 01/24/22 22:59 06:59 14:59 Intake Total 200 Output Total 500 Balance -300 Intake: IV 200 Sodium Chloride 0.9% 1, 200 000 ml @ 100 mls/hr IV . Q10H [facility] Rx#:[id number] Output: Urine 500 Other: Voiding Method Bedpan # Voids 1 Weight 87.2 kg 01/23/22 04:52 01/23/22 04:52 Assessment and Plan Assessment: Assessment #1 change in mental status #2 stroke #3 proximal atrial fibrillation #4 hypertension #5 lung cancer with metastasis to bone Plan #1 DC Cardizem IV #2 continue amiodarone IV #3 start the patient on heparin if his safe from the neurology standpoint overview #4 recent echo showed normal ejection fraction
[2022-01-24 08:00] LABS: Basophils % (A) 0 %; Eosinophils # (A) 0.2 k/uL (0-0.7); Eosinophils % (A) 2 %; HCT 31.4 % (34.0-46.0); HGB 9.9 gm/dL (11.4-16.0); Hypochromasia Slight; Lymphocytes # (A) 0.4 k/uL (1.0-4.8); Lymphocytes % (A) 5 %; MCH 27.5 pg (25.0-35.0); MCHC 31.6 g/dL (31.0-37.0); MCV 87.1 fL (80.0-100.0); Monocytes # (A) 0.5 k/uL (0-1.0); Monocytes % (A) 5 %; Neutrophils # (A) 8.1 k/uL (1.3-7.7); Neutrophils % (A) 86 %; Platelet Count 210 k/uL (150-450); RBC 3.61 m/uL (3.80-5.40); RDW 13.2 % (11.5-15.5); WBC 9.5 k/uL (3.8-10.6)
[2022-01-24 08:07] LABS: ALT 42 U/L (4-34); AST 82 U/L (14-36); African American GFR (CKD) >90 (>60 ml/min/1.73 sqM); Albumin 2.6 g/dL (3.5-5.0); Alkaline Phosphatase 95 U/L (38-126); Anion Gap 5 mmol/L; Blood Urea Nitrogen 7 mg/dL (7-17); Calcium 7.6 mg/dL (8.4-10.2); Carbon Dioxide 23 mmol/L (22-30); Chloride 107 mmol/L (98-107); Glucose 101 mg/dL (74-99); Non-African American GFR(CKD) >90 (>60 ml/min/1.73 sqM); Sodium 135 mmol/L (137-145); Total Bilirubin 0.7 mg/dL (0.2-1.3); Total Protein 5.3 g/dL (6.3-8.2)
[2022-01-24] MEDS: CEFEPIME 2 GM in SODIUM CHLORIDE 0.9% 100 ML IVPB SCH ×3 (08:21→21:56)
[2022-01-24] MEDS ORDERED: ASPIRIN 325 MG TAB PO SCH (09:00)
[2022-01-24] MEDS: SODIUM CHLORIDE 0.9% 1,000 ML IV SCH ×2 (09:28→14:54)
[2022-01-24] MEDS: AMIODARONE 200 MG TAB PO SCH (09:29)
[2022-01-24] MEDS: TICAGRELOR 90 MG TAB PO SCH ×2 (09:33→21:55)
[2022-01-24] MEDS: SENNOSIDES-DOCUSATE SODIUM 1 EACH TAB PO SCH ×2 (09:39→21:55)
[2022-01-24] MEDS: METOPROLOL TARTRATE 50 MG TAB PO SCH ×2 (09:40→21:56)
[2022-01-24] MEDS: ASPIRIN 81 MG PO SCH (09:40)
[2022-01-24] MEDS: PANTOPRAZOLE 40 MG TABLET PO SCH (09:40)
[2022-01-24] MEDS: amLODIPine 5 MG TAB PO SCH (09:40)
[2022-01-24] MEDS ORDERED: ASPIRIN 81 MG PO STA (10:00)
[2022-01-24] MEDS ORDERED: TICAGRELOR 90 MG TAB PO STA (10:00)
[2022-01-24] MEDS: LIDOCAINE 5% PATCH TOPICAL SCH (10:13)
[2022-01-24] MEDS: ALPRAZolam 0.25 MG TAB PO PRN (10:13)
--- NOTE | 2022-01-24 10:15 | P.PN ---
Subjective Progress Note Date: 01/24/22 Gracie Ybarra, is a 76-year-old female who presented to [facility] emergency room with a chief complaint of confusion weakness decreased responsiveness and left facial drooping. Patient was recently admitted to [facility] with low back pain with evidence of metastatic dise ase to the bone biopsy was done and revealed evidence of primary pulmonary cancer with metastatic disease she received radiation therapy and was discharged home on 01/22/2022 patient also has known history of atrial fibrillation maintained on Eliquis. She was evaluated in the emergency room vital examination on presentation revealed a temperature of 100.1 pulse 140 respiration 18 and blood pressure 145/59 pulse ox 93% on room air Laboratory data revealed a white blood count of 9.3 hemoglobin 10.7 platelet count 205 troponin 0.665 Testing in the emergency room revealed computed tomography scan of the brain revealed hypodensity in the right temporal lobe that could be an acute right middle cerebral artery infarct. 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 Patient was admitted to intensive care unit, neurology consultation was requested. Consultation was also placed for cardiology and oncology for follow-up. On 01/24/2022 patient is alert still with notable left facial droop. Per nursing staff plans for MRI today per neurology services. Infectious disease oncology and oncology service is consulted. Cardiology services also following. Current vital signs temp 99.1, heart rate 68, respiratory rate 14, blood pressure 130/60., Oxygen saturation 96% on 2 L Objective - Vital Signs Vital signs: Vital Signs Temp 99.1 F 01/24/22 08:00 Pulse 68 01/24/22 08:00 Resp 14 01/24/22 08:00 BP 138/63 01/24/22 08:00 Pulse Ox 96 01/24/22 08:00 FiO2 Intake & Output 01/23/22 01/24/22 01/24/22 18:59 06:59 18:59 Intake Total 200 100 800 Output Total 500 600 200 Balance -300 -500 600 Weight 87.2 kg Intake: IV 200 100 800 Sodium Chloride 0.9% 1, 200 100 800 000 ml @ 100 mls/hr IV . Q10H [facility] Rx#:[id number] Output: Urine 500 600 200 Other: Voiding Method Bedpan Indwelling Catheter # Voids 1 1 - Exam In general patient is alert and oriented, she has left facial drooping and right sided gaze HEENT head normocephalic and atraumatic Neck is supple no JVD no goiter no lymphadenopathy no carotid bruit Chest examination is clear to auscultation no crackles no wheezing Cardiac exam reveals regular heart sounds S1 and S2 no gallops no murmurs Abdomen is soft nontender no organomegaly with normal bowel sounds Extremity exam reveals no edema no cyanosis or clubbing Neurological examination reveals mental status patient is alert and oriented speech is fluent, there is left facial drooping and right sided gaze, motor exam reveals significant weakness on the left upper extremity which is at 1 out of 5, and weakness in the left lower extremity which is at 2 out of 5, there is some sensory deficit on the left side although unable to assess properly due to patient cooperation, reflexes are 1+ bilaterally and plantars are equivocal. - Labs CBC & Chem 7: 01/24/22 07:11 01/24/22 07:11 Labs: Abnormal Lab Results - Last 24 Hours (Table) 01/23/22 01/23/22 01/23/22 Range/Units 04:43 14:15 17:53 RBC (3.80-5.40) m/uL Hgb (11.4-16.0) gm/dL Hct (34.0-46.0) % Neutrophils # (1.3-7.7) k/uL Lymphocytes # (1.0-4.8) k/uL Sodium (137-145) mmol/L Creatinine (0.52-1.04) mg/dL Glucose (74-99) mg/dL POC Glucose (mg/dL) 127 H (70-110) mg/dL Calcium (8.4-10.2) mg/dL AST (14-36) U/L ALT (4-34) U/L C-Reactive Protein 16.3 H (<1.0) mg/dL Total Protein (6.3-8.2) g/dL Albumin (3.5-5.0) g/dL Urine Appearance Cloudy H (Clear) Urine Protein 1+ H (Negative) Urine Blood Small H (Negative) Ur Leukocyte Esterase Large H (Negative) Urine RBC 24 H (0-5) /hpf Urine WBC 53 H (0-5) /hpf Ur Squamous Epith Cells 7 H (0-4) /hpf Urine Bacteria Few H (None) /hpf Hyaline Casts 33 H (0-2) /lpf Urine Mucus Rare H (None) /hpf Urine Yeast (Budding) Few H (None) /hpf 01/24/22 01/24/22 Range/Units 07:11 07:11 RBC 3.61 L (3.80-5.40) m/uL Hgb 9.9 L (11.4-16.0) gm/dL Hct 31.4 L (34.0-46.0) % Neutrophils # 8.1 H (1.3-7.7) k/uL Lymphocytes # 0.4 L (1.0-4.8) k/uL Sodium 135 L (137-145) mmol/L Creatinine 0.51 L (0.52-1.04) mg/dL Glucose 101 H (74-99) mg/dL POC Glucose (mg/dL) (70-110) mg/dL Calcium 7.6 L (8.4-10.2) mg/dL AST 82 H (14-36) U/L ALT 42 H (4-34) U/L C-Reactive Protein (<1.0) mg/dL Total Protein 5.3 L (6.3-8.2) g/dL Albumin 2.6 L (3.5-5.0) g/dL Urine Appearance (Clear) Urine Protein (Negative) Urine Blood (Negative) Ur Leukocyte Esterase (Negative) Urine RBC (0-5) /hpf Urine WBC (0-5) /hpf Ur Squamous Epith Cells (0-4) /hpf Urine Bacteria (None) /hpf Hyaline Casts (0-2) /lpf Urine Mucus (None) /hpf Urine Yeast (Budding) (None) /hpf Assessment and Plan Plan: Acute ischemic stroke, right middle cerebral artery distribution Underlying history of atrial fibrillation Underlying history of lung cancer with metastatic bone disease Underlying history of hypertension Underlying history of hyperlipidemia Underlying history of COPD Underlying history of gastroesophageal reflux disease At this time patient is admitted to ICU She was evaluated by neurology and was started on [place]inta Cardiology consultation requested in that regard to atrial fibrillation Oncology consultation requested in regard lung cancer with metastatic bone disease Pain is well controlled at this time per patient CODE STATUS is no code Prognosis is guarded will follow closely MRI today 01/24/2022
--- NOTE | 2022-01-24 10:36 | P.PN ---
Subjective Progress Note Date: 01/24/22 The patient is seen at bedside and per nurse is about the same. Pending MRI Brain to be done today. Objective - Vital Signs Vital signs: Vital Signs Temp 99.1 F 01/24/22 08:00 Pulse 68 01/24/22 08:00 Resp 14 01/24/22 08:00 BP 138/63 01/24/22 08:00 Pulse Ox 96 01/24/22 08:00 FiO2 Intake & Output 01/23/22 01/24/22 01/24/22 18:59 06:59 18:59 Intake Total 200 100 800 Output Total 500 600 200 Balance -300 -500 600 Weight 87.2 kg Intake: IV 200 100 800 Sodium Chloride 0.9% 1, 200 100 800 000 ml @ 100 mls/hr IV . Q10H [facility] Rx#:[id number] Output: Urine 500 600 200 Other: Voiding Method Bedpan Indwelling Catheter # Voids 1 1 - Exam GENERAL: The patient is laying in bed and is not in acute distress. NEUROLOGICAL: Higher mental function: The patient is awake, alert, oriented to self, place and time. Patient is following simple commands. She is slow following commands but seems more responsive today. No aphasia. Has sensory neglect on the left side. . Cranial nerves: Has right gaze deviation but able to look to the left bilaterally. The pupils are round, equal and reactive to light. Unable to assess visual field because of cooperation. Left lower Facial droop. Has mild t dysarthria. Rest is unable to assess because of cooperation. Motor: The strength is able to lift left upper and lower above gravity then drops to gravity (strength is at least 3+). Otherwise 5 over 5 throughout right side. Decrease tone over the left. side. Normal bulk. Cerebellum: Unable to assess because of cooperation. Sensation: Has sensory neglect on the left side. Reflexes (right/left): 1+ throughout. Plantars are mute bilaterally. SOME OF THE WORK-UP DURING THIS HOSPITAL VISIT CONSISTED OF: White blood cell is 9.3 thousand. Initial serum glucose is 110 potassium 5.2 AST is 46 troponin is 0.665. Serum alcohol was less than 10 Urinalysis seems a possible stress of of urinary tract infection SARS-COV2 PCR is not detected. CT of the head is reported as there is some subtle hypodensity in the right temporal lobe which appears new compared to old exam and could be acute right middle cerebral artery infarct. I spoke with reading radiologist today (Dr. Figueroa and he agree with report). I personally reviewed that a CT of the head and I agree there is some septal hypodensity over the right temporal parietal region but also I felt like as there is subacute infarct over the left temporal occipital region. CT angiography of the head and neck was reported as there is single major branch of the right middle cerebral artery which appears terminated due to thrombosis at anterior right sylvian fissure no significant angiographic abnormality of the neck. I spoke with reading radiologist today (Dr. Figueroa and he agree with report). Routine EEG is abnormal. The background is normal. The focal slowing over the left hemisphere is likely suggestive of focal cerebral dysfunction. Otherwise there is no seizure during the study or epileptiform discharges. - Labs CBC & Chem 7: 01/24/22 07:11 01/24/22 07:11 Labs: Abnormal Lab Results - Last 24 Hours (Table) 01/23/22 01/23/22 01/23/22 Range/Units 04:43 14:15 17:53 RBC (3.80-5.40) m/uL Hgb (11.4-16.0) gm/dL Hct (34.0-46.0) % Neutrophils # (1.3-7.7) k/uL Lymphocytes # (1.0-4.8) k/uL Sodium (137-145) mmol/L Creatinine (0.52-1.04) mg/dL Glucose (74-99) mg/dL POC Glucose (mg/dL) 127 H (70-110) mg/dL Calcium (8.4-10.2) mg/dL AST (14-36) U/L ALT (4-34) U/L C-Reactive Protein 16.3 H (<1.0) mg/dL Total Protein (6.3-8.2) g/dL Albumin (3.5-5.0) g/dL Urine Appearance Cloudy H (Clear) Urine Protein 1+ H (Negative) Urine Blood Small H (Negative) Ur Leukocyte Esterase Large H (Negative) Urine RBC 24 H (0-5) /hpf Urine WBC 53 H (0-5) /hpf Ur Squamous Epith Cells 7 H (0-4) /hpf Urine Bacteria Few H (None) /hpf Hyaline Casts 33 H (0-2) /lpf Urine Mucus Rare H (None) /hpf Urine Yeast (Budding) Few H (None) /hpf 01/24/22 01/24/22 Range/Units 07:11 07:11 RBC 3.61 L (3.80-5.40) m/uL Hgb 9.9 L (11.4-16.0) gm/dL Hct 31.4 L (34.0-46.0) % Neutrophils # 8.1 H (1.3-7.7) k/uL Lymphocytes # 0.4 L (1.0-4.8) k/uL Sodium 135 L (137-145) mmol/L Creatinine 0.51 L (0.52-1.04) mg/dL Glucose 101 H (74-99) mg/dL POC Glucose (mg/dL) (70-110) mg/dL Calcium 7.6 L (8.4-10.2) mg/dL AST 82 H (14-36) U/L ALT 42 H (4-34) U/L C-Reactive Protein (<1.0) mg/dL Total Protein 5.3 L (6.3-8.2) g/dL Albumin 2.6 L (3.5-5.0) g/dL Urine Appearance (Clear) Urine Protein (Negative) Urine Blood (Negative) Ur Leukocyte Esterase (Negative) Urine RBC (0-5) /hpf Urine WBC (0-5) /hpf Ur Squamous Epith Cells (0-4) /hpf Urine Bacteria (None) /hpf Hyaline Casts (0-2) /lpf Urine Mucus (None) /hpf Urine Yeast (Budding) (None) /hpf Assessment and Plan Assessment: Left facial weakness, gaze deviation left hemiparesis is due to likely acute ischemic stroke. Rule out brain mets. No IV tpa since wake-up stroke. On CT reported right temporal but I also felt left temporal as well. Seems cardioembolic in nature (atrial flutter). Right MCA thrombus at anterior sylvian fissure per CTA History of advanced bronchogenic carcinoma with skeletal metastasis and biopsy consistent with metastatic pulmonary adenocarcinoma post radiation therapy Encephalopathy due to acute ischemic stroke and likely underlying UTI and possible aspiration pneumonia Atrial flutter on eliquis Fever but no leukocytosis Elevated troponin Kyperkalemia Former tobacco use Plan: Pending MRI of the brain with and without urgently. Her patient's is on aspirin 325 daily as well as Brilinta 90mg bid (was loaded with one time ASA 325mg and Brilinta 180mg once by ED team). PLEASE AVOID ANTICOAGULATION FOR NOW TO AVOID HEMORRHAGIC CONVERSION (WILL WAIT FOR MRI AND WILL MAKE FURTHER RECOMMENDATION). On lipitor 80mg qhs for secondary stroke prophylaxis. Pending 2-D echo and Lipid panel ID consulted for fever Consulted cardiology since the patient was on Eliquis for atrial fibrillation/flutter but failed. After MRI will make decision regarding start of anticoagulation. Oncology team. Continue neuro checks Cardiac monitoring PT OT and COMMUNICATIONS EQUIPMENT INSTALLER are consulted We'll defer the rest of the medical management to primary team For DVT prophylaxis started subq heparin 5000U every 8 hours. Patient condition is critical and appears poor because of advanced cancer and likely recent stroke. The plan is discussed with patient and ICU nurse. UPDATE: MR the brain is reported as acute/subacute ischemic involving a large region of the right MCA distribution with additional foci of acute subacute ischemia involving bilateral frontal, parietal and occipital with additional region and left cerebellar hemisphere. Due to multiple vascular territories involved, embolic source is suggested. I personally reviewed MRI and agree that it involved premoninately right hemisphere but also involved left cerebellar and some left hemispheric region. Agree it appears embolic in nature. I highly recommend to pursue with a transesophageal echocardiogram. Cardiology is on board Recommend holding any IV heparin drip or use anticoagulant. Dr. Alejandra will start neurology service tomorrow A.M. then Dr. Reeder will resume service Thursday A.M. Time with Patient: Less than 30
[2022-01-24 11:36] LABS: Chol/HDL Ratio 2.78 Ratio; LDL Cholesterol,Calculated 48.6 mg/dL (0.0-131.0); VLDL Calculation 17.34 mg/dL (5.00-40.00)
--- NOTE | 2022-01-24 12:36 | P.CONS ---
History of Present Illness - Reason for Consult Consult date: 01/24/22 Metastatic lung adenocarcinoma Requesting physician: Kevyn Akers - Chief Complaint Left-sided deficit, CVA - History of Present Illness Ms. Ybarra is a 76-year-old female, Initially seen in consult in Dec 31 for suspicious right upper lobe mass. The patient had been admitted with shortness of breath, and cough which had not responded to outpatient treatment for pneumon ia, subsequent imaging confirmed presence of the mass. When she was stabilized, she had a bronchoscopy and was then discharged with plan for additional outpatient staging studies, including PET scan and brain MRI. Unfortunately, biopsy from the bronchoscopy came back nondiagnostic. PET scan was sched for 01/10/22 but, not done as the machine was down due to technical problems. Patient ended up being admitted 01/13 through 01/22, because of intractable back pain. She had a CTA showing increase in size of the right upper lobe mass as well as progression of the left paraspinal mass. She ended up having a bone biopsy that was positive Metastatic lung adenocarcinoma. She is medicated for HTN, on eliquis for a fib. Patient was discharged less than 24 hours, currently admitted for left-sided weakness, imaging consistent with CVA. Neurology is on consult. When seen patient is denying any other complaints on a 10 point review of systems. Review of Systems 10 point review of systems is negative except as stated in HPI Past Medical History Past Medical History: Cancer, Eye Disorder, Hypertension, Osteoarthritis (OA) Additional Past Medical History / Comment(s): Hx. of DIVERTICULITIS, LT EYE MAC. DEGEN. HTN resolved after surgery., dysphagia History of Any Multi-Drug Resistant Organisms: None Reported Past Surgical History: Bariatric Surgery, Cholecystectomy, Orthopedic Surgery, Tubal Ligation Additional Past Surgical History / Comment(s): RIGHT SHOULDER SX, COLONOSCOPY, EGD sleeve gastrectomy 02-01-18 Past Anesthesia/Blood Transfusion Reactions: No Reported Reaction Additional Past Anesthesia/Blood Transfusion Reaction / Comm: Pt states that in June [address] Mckeon attempted to perform an EGD with dilation, the procedure had to be cancelled because she experienced a BP "way over 200 when they put me under" Past Psychological History: No Psychological Hx Reported Smoking Status: Never smoker Past Alcohol Use History: Daily Past Drug Use History: None Reported - Past Family History Mother Family Medical History: CVA/TIA Father Family Medical History: Myocardial Infarction (PA) Medications and Allergies Home Medications Medication Instructions Recorded Confirmed Type amLODIPine [Norvasc] 5 mg PO DAILY 06/27/20 01/23/22 History Apixaban [Eliquis] 5 mg PO BID #60 tab 12/30/21 01/23/22 Rx Budesonide-Formot 160-4.5 Mcg 2 puff INHALATION RT-BID each 12/31/21 01/23/22 Rx [Symbicort 160-4.5 Mcg Inhaler] Metoprolol Tartrate [Lopressor] 50 mg PO BID #60 tab 01/20/22 01/23/22 Rx ALPRAZolam [Xanax] 0.25 mg PO QID PRN tab 01/22/22 01/23/22 Rx HYDROcodone/APAP 10-325MG [[place] 1 each PO Q4HR PRN tab 01/22/22 01/23/22 Rx 10-325] Lidocaine 5% Patch [Lidoderm 5% 1 patch TOPICAL DAILY patch 01/22/22 01/23/22 Rx Patch] Magnesium Hydroxide [Milk of 2,400 mg PO DAILY PRN ml 01/22/22 01/23/22 Rx Magnesia Concentrate] Pantoprazole [Protonix] 40 mg PO AC-BRKFST tab 01/22/22 01/23/22 Rx Sennosides-Docusate Sodium 2 each PO BID tab 01/22/22 01/23/22 Rx [Senokot-S] fentaNYL 12MCG/HR PATCH [Duragesic 1 patch TRANSDERM Q72H 3 Days #1 01/22/22 01/23/22 Rx 12MCG/HR] patch polyethylene glycoL 3350 [Miralax] 17 gm PO BID packet 01/22/22 01/23/22 Rx Amiodarone [Cordarone] See Taper PO DIRECTED 01/23/22 01/23/22 History Allergies Allergy/AdvReac Type Severity Reaction Status Date / Time Penicillins Allergy Severe Anaphylaxis Verified 01/23/22 07:39 morphine Allergy Rash/Hives Verified 01/23/22 07:39 Physical Exam Vitals: Vital Signs Temp Pulse Resp BP Pulse Ox 01/24/22 08:00 99.1 F 68 14 138/63 96 01/24/22 04:00 100.3 F H 140 H 10 L 116/85 97 12/09/22 00:00 76 18 100/44 96 01/23/22 20:00 97.4 F L 76 19 95/54 93 L 01/23/22 16:00 98.4 F 70 14 120/51 95 Intake and Output 01/23/22 01/24/22 01/24/22 22:59 06:59 14:59 Intake Total 200 100 841.167 Output Total 500 600 200 Balance -300 -500 641.167 Intake: IV 200 100 800 Sodium Chloride 0.9% 1, 200 100 800 000 ml @ 100 mls/hr IV . Q10H [facility] Rx#:[id number] Intake, IV Titration 41.167 Amount Diltiazem 125 mg In 41.167 Sodium Chloride 0.9% 100 ml @ 10 MG/HR 10 mls/hr IV .[id number] [facility] Rx#: [id number] Output: Urine 500 600 200 Other: Voiding Method Bedpan Indwelling Catheter External Catheter # Voids 1 1 Weight 87.2 kg 87.2 kg - Constitutional General appearance: average body habitus, cooperative, no acute distress - EENT Eyes: anicteric sclerae, EOMI ENT: hearing grossly normal - Neck Neck: no lymphadenopathy - Respiratory Respiratory: bilateral: CTA - Cardiovascular Rhythm: irregularly irregular Heart sounds: normal: S1, S2 leg Peripheral Edema: bilateral: None - Gastrointestinal General gastrointestinal: no absent bowel sounds, no decreased bowel sounds, no distended, no hepatomegaly, no hyperactive bowel sounds, normal bowel sounds, no organomegaly, no rigid, no scaphoid, soft, no splenomegaly, no tenderness, no umbilical hernia, no ventral hernia - Integumentary Integumentary: pale - Neurologic Neurologic: focal deficits - Musculoskeletal Musculoskeletal: left sided weakness - Psychiatric Psychiatric: A&O x's 3, appropriate affect, intact judgment & insight Results CBC & Chem 7: 01/24/22 07:11 01/24/22 07:11 Labs: Abnormal Lab Results - Last 24 Hours (Table) 01/23/22 01/23/22 01/23/22 Range/Units 04:43 14:15 17:53 RBC (3.80-5.40) m/uL Hgb (11.4-16.0) gm/dL Hct (34.0-46.0) % Neutrophils # (1.3-7.7) k/uL Lymphocytes # (1.0-4.8) k/uL Sodium (137-145) mmol/L Creatinine (0.52-1.04) mg/dL Glucose (74-99) mg/dL POC Glucose (mg/dL) 127 H (70-110) mg/dL Calcium (8.4-10.2) mg/dL AST (14-36) U/L ALT (4-34) U/L C-Reactive Protein 16.3 H (<1.0) mg/dL Total Protein (6.3-8.2) g/dL Albumin (3.5-5.0) g/dL HDL Cholesterol (40.00-60.00) mg/dL Urine Appearance Cloudy H (Clear) Urine Protein 1+ H (Negative) Urine Blood Small H (Negative) Ur Leukocyte Esterase Large H (Negative) Urine RBC 24 H (0-5) /hpf Urine WBC 53 H (0-5) /hpf Ur Squamous Epith Cells 7 H (0-4) /hpf Urine Bacteria Few H (None) /hpf Hyaline Casts 33 H (0-2) /lpf Urine Mucus Rare H (None) /hpf Urine Yeast (Budding) Few H (None) /hpf 01/24/22 01/24/22 Range/Units 07:11 07:11 RBC 3.61 L (3.80-5.40) m/uL Hgb 9.9 L (11.4-16.0) gm/dL Hct 31.4 L (34.0-46.0) % Neutrophils # 8.1 H (1.3-7.7) k/uL Lymphocytes # 0.4 L (1.0-4.8) k/uL Sodium 135 L (137-145) mmol/L Creatinine 0.51 L (0.52-1.04) mg/dL Glucose 101 H (74-99) mg/dL POC Glucose (mg/dL) (70-110) mg/dL Calcium 7.6 L (8.4-10.2) mg/dL AST 82 H (14-36) U/L ALT 42 H (4-34) U/L C-Reactive Protein (<1.0) mg/dL Total Protein 5.3 L (6.3-8.2) g/dL Albumin 2.6 L (3.5-5.0) g/dL HDL Cholesterol 37.10 L (40.00-60.00) mg/dL Urine Appearance (Clear) Urine Protein (Negative) Urine Blood (Negative) Ur Leukocyte Esterase (Negative) Urine RBC (0-5) /hpf Urine WBC (0-5) /hpf Ur Squamous Epith Cells (0-4) /hpf Urine Bacteria (None) /hpf Hyaline Casts (0-2) /lpf Urine Mucus (None) /hpf Urine Yeast (Budding) (None) /hpf Chest x-ray: report reviewed CT Scan - head: report reviewed Assessment and Plan (1) CVA (cerebral vascular accident) Current Visit: Yes Status: Acute Priority: High Code(s): I63.9 - CEREBRAL INFARCTION, UNSPECIFIED SNOMED Code(s): 018035118 (2) Adenocarcinoma, lung Current Visit: Yes Status: Acute Priority: High Code(s): C34.90 - MALIGNANT NEOPLASM OF UNSP PART OF UNSP BRONCHUS OR LUNG SNOMED Code(s): 021475836 Plan: Our last discussion on 01/22 consisted of pt reporting being very confused about her diagnosis-Despite multiple, extensive conversations- she reported that she did not know what she wanted to do, not sure she wanted to pursue cancer tr eatment. She had an outpatient appointment scheduled to discuss the same. Plan was to review the diagnosis, prognosis, treatment options as well as complete NGS and PDL1 testing on the specimen. If pt decided that she wanted to pursue therapy, MRI of the brain would be ordered at that time to complete staging. Unfortunately, patient is now admitted with a CVA. Defer management of acute situation to [facility], Internal Medicine & Neurology. Not certain how this additional Medical complication will affect her emotionally and mentally, and will it affect her decision making capability. We will follow along with you and be available to answer patient's questions and concerns as it pertains to malignancy. Dr. goncalvesests: I have seen and examined patient, performed H&P, developed impression and plan of care. Discussed with dictator. Agree with documentation, dictated as a prescription
--- NOTE | 2022-01-24 13:17 | MR ---
EXAMINATION TYPE: MR brain wo/w con DATE OF EXAM: 01/24/2022 COMPARISON: CT head 01/23/2022, CTA head and neck 01/23/2022 HISTORY: Altered mental status TECHNIQUE: Multiplanar, multisequence images of the brain and brainstem is performed without and with IV contras t, utilizing 9 mL intravenous Gadavist . FINDINGS: Large region of restricted diffusion involving the right frontal, parietal, temporal lobes in an MCA distribution. Additional foci of restricted diffusion demonstrated within the bilateral fro ntal, bilateral parietal, bilateral occipital lobes with additional region in the left cerebellar hem isphere. There is corresponding T2/FLAIR hyperintensity. No extra-axial fluid collections. The ventri cular system and cisternal spaces are normal in size and appearance. The brain volume is age appropr iate. No definitive susceptibility artifact to suggest microhemorrhage. Midline structures demonstrate normal morphology. The craniocervical junction appears within normal limits. Post contrast images demonstrate no abnormal enhancement. The dural venous sinuses appear pa tent. The visualized sinuses are clear and the ocular lens surgically absent. IMPRESSION: Acute/subacute ischemia involving a large region of the right MCA distribution with additional foci o f acute/subacute ischemia involving the bilateral frontal, parietal, and occipital lobes with additio nal region in the left cerebellar hemisphere. Due to the multiple vascular territories involved, embo lic source is suggested.
[2022-01-24] MEDS ORDERED: ALBUMIN HUMAN 5% 250 ML in EMPTY BAG 1 BAG IVPB ONE (13:52)
[2022-01-24] MEDS ORDERED: NOREPINEPHRINE 8 MG in SODIUM CHLORIDE 0.9% 250 ML IV SCH (14:00)
[2022-01-24] MEDS: AMIODARONE 450 MG in DEXTROSE 5% IN WATER 250 ML IV SCH ×2 (14:54)
[2022-01-24] MEDS ORDERED: HEPARIN SODIUM 1,000 UN/ML (10ML VL) IV ONE (15:11)
[2022-01-24] MEDS ORDERED: HEPARIN SODIUM 1,000 UN/ML (10ML VL) IV PRN (15:11)
[2022-01-24] MEDS ORDERED: HEPARIN SOD,PORK IN 0.45% NACL 25,000 UNIT in 0.45% NACL 1 250ML.BAG IV SCH (15:15)
[2022-01-24] MEDS: ATORVASTATIN 80 MG TAB PO SCH (21:56)
--- NOTE | 2022-01-25 00:14 | P.PN ---
Subjective Progress Note Date: 01/24/22 Principal diagnosis: Fever Patient is a 76-year-old female presenting to the hospital with mental status changes and weakness currently being worked up for CVA did have a positive UA and some right-sided infiltrate concerning for UTI plus minus pneumonia. On today's evaluation that is 01/24/2022, the patient overall fever pattern has improved and the patient is afebrile this afternoon patient is sleepy lethargic and did not provide any history patient is hemodynamically stable not on any pressor support no vomiting or diarrhea has been reported Objective - Vital Signs Vital signs: Vital Signs Temp 99.1 F 01/24/22 08:00 Pulse 68 01/24/22 08:00 Resp 14 01/24/22 08:00 BP 138/63 01/24/22 08:00 Pulse Ox 96 01/24/22 08:00 FiO2 Intake & Output 01/23/22 01/24/22 01/24/22 18:59 06:59 18:59 Intake Total 200 100 841.167 Output Total 500 600 200 Balance -300 -500 641.167 Weight 87.2 kg 87.2 kg Intake: IV 200 100 800 Sodium Chloride 0.9% 1, 200 100 800 000 ml @ 100 mls/hr IV . Q10H [facility] Rx#:[id number] Intake, IV Titration 41.167 Amount Diltiazem 125 mg In 41.167 Sodium Chloride 0.9% 100 ml @ 10 MG/HR 10 mls/hr IV .[id number] [facility] Rx#: [id number] Output: Urine 500 600 200 Other: Voiding Method Bedpan Indwelling Catheter External Catheter # Voids 1 1 - Exam GENERAL DESCRIPTION: An elderly female lying in bed in no distress RESPIRATORY SYSTEM: Unlabored breathing , decreased breath sounds at bases HEART: S1 S2 regular rate and rhythm , ABDOMEN: Soft , no tenderness EXTREMITIES: No edema feet - Labs CBC & Chem 7: 01/24/22 07:11 01/24/22 07:11 Labs: Abnormal Lab Results - Last 24 Hours (Table) 01/23/22 01/23/22 01/23/22 Range/Units 04:43 14:15 17:53 RBC (3.80-5.40) m/uL Hgb (11.4-16.0) gm/dL Hct (34.0-46.0) % Neutrophils # (1.3-7.7) k/uL Lymphocytes # (1.0-4.8) k/uL Sodium (137-145) mmol/L Creatinine (0.52-1.04) mg/dL Glucose (74-99) mg/dL POC Glucose (mg/dL) 127 H (70-110) mg/dL Calcium (8.4-10.2) mg/dL AST (14-36) U/L ALT (4-34) U/L C-Reactive Protein 16.3 H (<1.0) mg/dL Total Protein (6.3-8.2) g/dL Albumin (3.5-5.0) g/dL HDL Cholesterol (40.00-60.00) mg/dL Urine Appearance Cloudy H (Clear) Urine Protein 1+ H (Negative) Urine Blood Small H (Negative) Ur Leukocyte Esterase Large H (Negative) Urine RBC 24 H (0-5) /hpf Urine WBC 53 H (0-5) /hpf Ur Squamous Epith Cells 7 H (0-4) /hpf Urine Bacteria Few H (None) /hpf Hyaline Casts 33 H (0-2) /lpf Urine Mucus Rare H (None) /hpf Urine Yeast (Budding) Few H (None) /hpf 01/24/22 01/24/22 Range/Units 07:11 07:11 RBC 3.61 L (3.80-5.40) m/uL Hgb 9.9 L (11.4-16.0) gm/dL Hct 31.4 L (34.0-46.0) % Neutrophils # 8.1 H (1.3-7.7) k/uL Lymphocytes # 0.4 L (1.0-4.8) k/uL Sodium 135 L (137-145) mmol/L Creatinine 0.51 L (0.52-1.04) mg/dL Glucose 101 H (74-99) mg/dL POC Glucose (mg/dL) (70-110) mg/dL Calcium 7.6 L (8.4-10.2) mg/dL AST 82 H (14-36) U/L ALT 42 H (4-34) U/L C-Reactive Protein (<1.0) mg/dL Total Protein 5.3 L (6.3-8.2) g/dL Albumin 2.6 L (3.5-5.0) g/dL HDL Cholesterol 37.10 L (40.00-60.00) mg/dL Urine Appearance (Clear) Urine Protein (Negative) Urine Blood (Negative) Ur Leukocyte Esterase (Negative) Urine RBC (0-5) /hpf Urine WBC (0-5) /hpf Ur Squamous Epith Cells (0-4) /hpf Urine Bacteria (None) /hpf Hyaline Casts (0-2) /lpf Urine Mucus (None) /hpf Urine Yeast (Budding) (None) /hpf Assessment and Plan (1) Fever Current Visit: Yes Status: Acute Code(s): R50.9 - FEVER, UNSPECIFIED SNOMED Code(s): 296730152 Plan: 1patient with a low-grade fever and this patient presented to hospital with mental status changes weakness with concern for a CVA patient did have a positive UA could be likely contributing to her low-grade fever and also right lower lobe infiltrate concerning for possible pneumonia in this patient who do have a history of metastatic bronchogenic carcinoma 2- Blood cultures are currently pending the patient procalcitonin was normal 3-patient to continue with cefepime while waiting for the culture to finalize Time with Patient: Less than 30
[2022-01-25] MEDS: HYDROmorphone 1 MG/ML 1 ML SYRINGE IVP PRN ×5 (01:56→22:43)
[2022-01-25] MEDS: AMIODARONE 450 MG in DEXTROSE 5% IN WATER 250 ML IV SCH ×4 (02:00→14:19)
[2022-01-25] MEDS: HYDROcodone/APAP 10-325MG 1 EACH TAB PO PRN (02:53)
[2022-01-25] MEDS: SODIUM CHLORIDE 0.9% 1,000 ML IV SCH ×3 (04:03→21:07)
--- NOTE | 2022-01-25 07:03 | P.PN ---
Subjective Progress Note Date: 01/25/22 Principal diagnosis: Paroxysmal atrial fibrillation This is a 76-year-old female patient was known to her service from before with a past medical history significant for lung cancer with metastasis to the bone documented on biopsy was performed recently as well as history of paroxysmal atrial fibrillation. We consulted to see the patient in the intensive care unit for further evaluation of atrial fibrillation with rapid ventricular response. The patient was discharge in the hospital recently after she was admitted with atrial fibrillation with rapid ventricular response and that was a new diagnosis to her and she was discharged on oral anticoagulation with Eliquis. During her last hospital stay she underwent an echo which revealed preserved left ventricle systolic function and right ventricular systolic function was no significant valvular abnormalities. This time she was brought to the emergency department was change in mental status as well as evidence of focal neurologic finding with left sided weakness associated with some slurred speech and confusion/change in mental status. Further investigation in the emergency department was performed including computed tomography scan of the brain which showed hypodense area in the right temporal lobe. Neurology was consulted. Beside that she underwent an EKG initially and that showed atrial fibrillation with rapid ventricular response but subsequently the patient was started on IV Cardizem and IV amiodaro ne and converted to normal sinus mechanism. She was seen and evaluated this morning. She has been maintaining sinus rhythm was sinus bradycardia and her pressure started going low. I'm going to stop the Cardizem IV and continue amiodarone IV. She is unable to take any medication orally at this point. We are going to discuss with the neurology service to start the patient on heparin IV for safe from the urology standpoint of view. The patient is in process of having MRI of the brain in the next 12 hours. No indication that she is experiencing any symptoms of chest pain or chest discomfort or any shortness of breath at this point. She is somewhat poor historian giving the recent diagno sis of stroke. January 25 The patient was seen and evaluated this morning. She does have change in mental status. She continues to be in and out of atrial fibrillation. Currently she is on amiodarone IV. She passed the swallow evaluation for that reason want to stop the amiodarone IV and start the patient on amiodarone by mouth. We consulted neurology regarding starting the patient on anticoagulation and the decision was no for possible increased risk of intracranial bleeding. The MRI showed infarction in the distribution of the right middle cerebral artery. Currently she is on dual antiplatelet therapy. Objective - Vital Signs Vital signs: Vital Signs Temp 98.8 F 01/25/22 00:00 Pulse 63 01/25/22 00:00 Resp 22 01/25/22 00:00 BP 131/65 01/25/22 00:00 Pulse Ox 96 01/24/22 20:00 FiO2 Intake & Output 01/24/22 01/25/22 01/25/22 18:59 06:59 18:59 Intake Total 1091.167 650 Output Total 600 400 Balance 491.167 250 Weight 87.2 kg Intake: IV 800 500 Sodium Chloride 0.9% 1, 800 500 000 ml @ 100 mls/hr IV . Q10H SAMANTHA Rx#:[id number] Intake, IV Titration 291.167 100 Amount Amiodarone 450 mg In 250 Dextrose 5% in Water 250 ml @ 0.5 MG/MIN 16.667 mls/hr IV .Q15H SAMANTHA Rx#: [id number] Cefepime 2 gm In Sodium 100 Chloride 0.9% 100 ml @ 25 mls/hr IVPB Q8H SAMANTHA Rx#: [id number] Diltiazem 125 mg In 41.167 Sodium Chloride 0.9% 100 ml @ 10 MG/HR 10 mls/hr IV .[id number] SAMANTHA Rx#: [id number] Oral 50 Output: Urine 600 400 Other: Voiding Method External Catheter External Catheter # Voids 1 - Constitutional General appearance: Present: no acute distress - Respiratory Respiratory: bilateral: diminished - Cardiovascular Rhythm: regular - Labs CBC & Chem 7: 01/24/22 07:11 01/24/22 07:11 Labs: Abnormal Lab Results - Last 24 Hours (Table) 01/24/22 01/24/22 Range/Units 07:11 07:11 RBC 3.61 L (3.80-5.40) m/uL Hgb 9.9 L (11.4-16.0) gm/dL Hct 31.4 L (34.0-46.0) % Neutrophils # 8.1 H (1.3-7.7) k/uL Lymphocytes # 0.4 L (1.0-4.8) k/uL Sodium 135 L (137-145) mmol/L Creatinine 0.51 L (0.52-1.04) mg/dL Glucose 101 H (74-99) mg/dL Calcium 7.6 L (8.4-10.2) mg/dL AST 82 H (14-36) U/L ALT 42 H (4-34) U/L Total Protein 5.3 L (6.3-8.2) g/dL Albumin 2.6 L (3.5-5.0) g/dL HDL Cholesterol 37.10 L (40.00-60.00) mg/dL Microbiology - Last 24 Hours (Table) 01/23/22 17:53 Blood Culture - Preliminary Blood No Growth after 24 hours Assessment and Plan Assessment: Assessment #1 change in mental status #2 stroke in the distribution of the right middle cerebral artery #3 proximal atrial fibrillation #4 hypertension #5 lung cancer with metastasis to bone Plan #1 DC amiodarone IV and start the patient amiodarone by mouth #2 continue dual antiplatelet therapy #3 currently the patient is a very challenging to perform transesophageal echocardiogram given the mentation change and difficult to call. #4 obtain an echocardiogram was Doppler #5 follow-up with the patient
[2022-01-25] MEDS: SYMBICORT 160-4.5 MCG INHALER INHALATION SCH ×2 (07:51→19:24)
[2022-01-25] MEDS: CEFEPIME 2 GM in SODIUM CHLORIDE 0.9% 100 ML IVPB SCH ×3 (08:22→21:07)
[2022-01-25] MEDS: LIDOCAINE 5% PATCH TOPICAL SCH (10:24)
[2022-01-25] MEDS: SENNOSIDES-DOCUSATE SODIUM 1 EACH TAB PO SCH ×2 (10:25→21:01)
[2022-01-25] MEDS: amLODIPine 5 MG TAB PO SCH (10:25)
[2022-01-25] MEDS: AMIODARONE 200 MG TAB PO SCH (10:25)
[2022-01-25] MEDS: ASPIRIN 81 MG PO SCH (10:25)
[2022-01-25] MEDS: PANTOPRAZOLE 40 MG TABLET PO SCH (10:25)
[2022-01-25] MEDS: TICAGRELOR 90 MG TAB PO SCH ×2 (10:25→21:07)
[2022-01-25] MEDS: METOPROLOL TARTRATE 50 MG TAB PO SCH ×2 (10:25→21:07)
--- NOTE | 2022-01-25 10:31 | P.PN ---
Subjective Progress Note Date: 01/25/22 Principal diagnosis: Right middle cerebral artery stroke -Brain MRI performed on 01/24/2022 revealed large acute/subacute ischemia in the right middle cerebral artery distribution along with a foci of ischemia in the left cerebellar hemisphere. Given the large area affected, there was concern for possible embolic source -T-max 100.3 F, with max heart rate of 138 noted to be intermittently in atrial fibrillation with RVR -Currently, she denies any pain or discomfort. She does note intermittent discomfort in the lower back at the site of her known metastases, which she feel s can exacerbate her atrial fibrillation with palpitations -She denies any new signs or symptoms, including cough or dyspnea Objective - Vital Signs Vital signs: Vital Signs Temp 98.8 F 01/25/22 04:00 Pulse 138 H 01/25/22 04:00 Resp 20 01/25/22 04:00 BP 144/72 01/25/22 04:00 Pulse Ox 98 01/25/22 04:00 FiO2 Intake & Output 01/24/22 01/25/22 01/25/22 18:59 06:59 18:59 Intake Total 1091.167 650 Output Total 600 400 Balance 491.167 250 Weight 87.2 kg 88.7 kg Intake: IV 800 500 Sodium Chloride 0.9% 1, 800 500 000 ml @ 100 mls/hr IV . Q10H SAMANTAH Rx#:[id number] Intake, IV Titration 291.167 100 Amount Amiodarone 450 mg In 250 Dextrose 5% in Water 250 ml @ 0.5 MG/MIN 16.667 mls/hr IV .Q15H SAMANTHA Rx#: [id number] Cefepime 2 gm In Sodium 100 Chloride 0.9% 100 ml @ 25 mls/hr IVPB Q8H SAMANTHA Rx#: [id number] Diltiazem 125 mg In 41.167 Sodium Chloride 0.9% 100 ml @ 10 MG/HR 10 mls/hr IV .[id number] SAMANTHA Rx#: [id number] Oral 50 Output: Urine 600 400 Other: Voiding Method External Catheter External Catheter # Voids 1 - Constitutional General appearance: Present: average body habitus, no acute distress - Respiratory Respiratory: bilateral: CTA - Cardiovascular Rhythm: regular - Gastrointestinal General gastrointestinal: Present: normal bowel sounds, soft. Absent: tenderness - Neurologic Neurologic Comment(s): Persistent left facial droop noted. 5 out of 5 strength in flexion and extension of the right upper extremity with 3 out of 5 strength in flexion and extension of the left upper extremity. 5 out of 5 strength in plantar flexion of the right foot compared to 3 out of 5 strength plantar flexion of the left foot. 5 out of 5 strength in flexion of the right leg compared to 3 out of 5 strength flexion of the left leg - Labs CBC & Chem 7: 01/24/22 07:11 01/24/22 07:11 Labs: Abnormal Lab Results - Last 24 Hours (Table) 01/24/22 Range/Units 07:11 HDL Cholesterol 37.10 L (40.00-60.00) mg/dL Microbiology - Last 24 Hours (Table) 01/23/22 17:53 Blood Culture - Preliminary Blood No Growth after 24 hours - Imaging and Cardiology MRI - head: report reviewed Assessment and Plan Assessment: Ms. Ybarra is a 76-year-old woman with a past medical history significant for atrial fibrillation and recently diagnosed metastatic lung adenocarcinoma with metastases to the bone who presented with acute left facial droop and metabolic encephalopathy found to have acute/subacute ischemia in the right middle cerebral artery along with foci in the left cerebellar hemisphere consistent with stroke (1) Metastatic primary lung cancer Current Visit: Yes Status: Acute Code(s): C34.90 - MALIGNANT NEOPLASM OF UNS P PART OF UNSP BRONCHUS OR LUNG SNOMED Code(s): 34438631 (2) Atrial flutter with rapid ventricular response Current Visit: Yes Status: Acute Code(s): I48.92 - UNSPECIFIED ATRIAL FLUTTER SNOMED Code(s): 5846705 (3) CVA (cerebral vascular accident) Current Visit: Yes Status: Acute Priority: High Code(s): I63.9 - CEREBRAL INFARCTION, UNSPECIFIED SNOMED Code(s): 864467260 Plan: #Metastatic lung adenocarcinoma with metastases to bones -Diagnosed on lumbosacral bone biopsy on 01/15/2022 -Diagnosis was discussed with Ms. Ybarra and her family along with options of pursuing further work-up to determine treatment options or pursue palliative measures -At the time of discharge on her last admission, she was going to discuss this further with her family -There are no acute oncologic interventions necessary at this time -If she decides to pursue further work-up and potential treatment, her neurologic recovery from the acute stroke would have to be taken into consid eration -Focus at this time should be on acute management and work-up of the stroke, which is not secondary to malignancy #Right middle cerebral artery infarction -Presented with left facial droop and acute metabolic encephalopathy -Found to have weakness on the left side along with right gaze deviation on exam -CTA of the head and neck on admission revealed occlusion of the right middle cerebral artery -Brain MRI revealed acute/subacute ischemia in the right middle cerebral artery distribution along with foci of ischemia in the left cerebellar hemisphere, which was concerning for embolic etiology -She was on anticoagulation with Eliquis prior to the development of the stroke -Will defer management of stroke to neurology #Atrial fibrillation with RVR -Noted to be in atrial fibrillation with RVR on initial presentation -She was started on IV amiodarone this admission and was transitioned to oral amiodarone today per cardiology -RONAK is being considered by cardiology for work-up of an embolic etiology, but was noted to be difficult due to her acute metabolic encephalopathy -We will defer to cardiology on this matter
--- NOTE | 2022-01-25 10:59 | P.PN ---
Subjective Progress Note Date: 01/25/22 Gracie Ybarra, is a 76-year-old female who presented to [facility] emergency room with a chief complaint of confusion weakness decreased responsiveness and left facial drooping. Patient was recently admitted to [facility] with low back pain with evidence of metastatic dise ase to the bone biopsy was done and revealed evidence of primary pulmonary cancer with metastatic disease she received radiation therapy and was discharged home on 01/22/2022 patient also has known history of atrial fibrillation maintained on Eliquis. She was evaluated in the emergency room vital examination on presentation revealed a temperature of 100.1 pulse 140 respiration 18 and blood pressure 145/59 pulse ox 93% on room air Laboratory data revealed a white blood count of 9.3 hemoglobin 10.7 platelet count 205 troponin 0.665 Testing in the emergency room revealed computed tomography scan of the brain revealed hypodensity in the right temporal lobe that could be an acute right middle cerebral artery infarct. 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 Patient was admitted to intensive care unit, neurology consultation was requested. Consultation was also placed for cardiology and oncology for follow-up. On 01/24/2022 patient is alert still with notable left facial droop. Per nursing staff plans for MRI today per neurology services. Infectious disease oncology and oncology service is consulted. Cardiology services also following. Current vital signs temp 99.1, heart rate 68, respiratory rate 14, blood pressure 130/60., Oxygen saturation 96% on 2 L On 01/25/2022 patient was seen and examined in the ICU she is alert and oriented 2 in no apparent distress, she is answering questions appropriately, she still has right sided gaze, and has severe left upper extremity weakness and moderate left lower extremity weakness, she is denying any pain or discomfort at this time, MRI done on 01/24/2022 revealed large region of acute/subacute ischemia in the right MCA distribution, embolic source is suggested, vital exam at this time reveals a temperature of 97.7 pulse 68 respiration 16 blood pressure 136/60 pulse ox 98% on 3 L nasal cannula Objective - Vital Signs Vital signs: Vital Signs Temp 98.8 F 01/25/22 00:00 Pulse 63 01/25/22 00:00 Resp 22 01/25/22 00:00 BP 131/65 01/25/22 00:00 Pulse Ox 96 01/24/22 20:00 FiO2 Intake & Output 01/24/22 01/25/22 01/25/22 18:59 06:59 18:59 Intake Total 1091.167 650 Output Total 600 400 Balance 491.167 250 Weight 87.2 kg Intake: IV 800 500 Sodium Chloride 0.9% 1, 800 500 000 ml @ 100 mls/hr IV . Q10H SAMANTHA Rx#:[id number] Intake, IV Titration 291.167 100 Amount Amiodarone 450 mg In 250 Dextrose 5% in Water 250 ml @ 0.5 MG/MIN 16.667 mls/hr IV .Q15H SAMANTHA Rx#: [id number] Cefepime 2 gm In Sodium 100 Chloride 0.9% 100 ml @ 25 mls/hr IVPB Q8H SAMANTHA Rx#: [id number] Diltiazem 125 mg In 41.167 Sodium Chloride 0.9% 100 ml @ 10 MG/HR 10 mls/hr IV .[id number] SAMANTHA Rx#: [id number] Oral 50 Output: Urine 600 400 Other: Voiding Method External Catheter External Catheter # Voids 1 - Exam In general patient is alert and oriented, she has left facial drooping and right sided gaze HEENT head normocephalic and atraumatic Neck is supple no JVD no goiter no lymphadenopathy no carotid bruit Chest examination is clear to auscultation no crackles no wheezing Cardiac exam reveals regular heart sounds S1 and S2 no gallops no murmurs Abdomen is soft nontender no organomegaly with normal bowel sounds Extremity exam reveals no edema no cyanosis or clubbing Neurological examination reveals mental status patient is alert and oriented speech is fluent, there is left facial drooping and right sided gaze, motor exam reveals significant weakness on the left upper extremity which is at 1 out of 5, and weakness in the left lower extremity which is at 2 out of 5, there is some sensory deficit on the left side although unable to assess properly due to patient cooperation, reflexes are 1+ bilaterally and plantars are equivocal. - Labs CBC & Chem 7: 01/24/22 07:11 01/24/22 07:11 Labs: Abnormal Lab Results - Last 24 Hours (Table) 01/24/22 01/24/22 Range/Units 07:11 07:11 RBC 3.61 L (3.80-5.40) m/uL Hgb 9.9 L (11.4-16.0) gm/dL Hct 31.4 L (34.0-46.0) % Neutrophils # 8.1 H (1.3-7.7) k/uL Lymphocytes # 0.4 L (1.0-4.8) k/uL Sodium 135 L (137-145) mmol/L Creatinine 0.51 L (0.52-1.04) mg/dL Glucose 101 H (74-99) mg/dL Calcium 7.6 L (8.4-10.2) mg/dL AST 82 H (14-36) U/L ALT 42 H (4-34) U/L Total Protein 5.3 L (6.3-8.2) g/dL Albumin 2.6 L (3.5-5.0) g/dL HDL Cholesterol 37.10 L (40.00-60.00) mg/dL Microbiology - Last 24 Hours (Table) 01/23/22 17:53 Blood Culture - Preliminary Blood No Growth after 24 hours Assessment and Plan Plan: Acute ischemic stroke, right middle cerebral artery distribution Underlying history of atrial fibrillation Underlying history of lung cancer with metastatic bone disease Underlying history of hypertension Underlying history of hyperlipidemia Underlying history of COPD Underlying history of gastroesophageal reflux disease At this time patient is admitted to ICU She was evaluated by neurology and was started on Brillinta Cardiology consultation requested in that regard to atrial fibrillation Oncology consultation requested in regard lung cancer with metastatic bone disease Pain is well controlled at this time per patient CODE STATUS is no code Prognosis is guarded will follow closely MRI today 01/24/2022
--- NOTE | 2022-01-25 16:40 | P.PN ---
Subjective Progress Note Date: 01/25/22 The patient is seen in neurologic follow-up on January 25, 2022, via teleneurology. The patient's daughter is present at the bedside at the time of the evaluation. Results of the brain MRI were discussed with the patient's daughter. In addition, prognosis was also discussed. The daughter was advised that because of the number of strokes and size of strokes, the patient likely will get worse before she gets better, because of swelling. The daughter reports that her mother has been somewhat agitated this morning, as well as confused. She was apparently just given medication to help calm her agitation. The chart has been reviewed. The original neurology consultation was performed on January 23, 2022. History obtained at that time revealed the patient to be a 76-year-old woman with history of advanced bronchogenic carcinoma with skeletal metastasis and biopsy consistent with metastatic pulmonary adenocarcinoma, atrial fibrillation on eliquis, former tobacco use who present to the hospital because of confusion and weakness. History is obtained from medical record and the patient's nurse since patient is not a great historian. Patient presents to our facility on 01/23/2022 around 4:31 AM. Some of the history is obtained from medical records and patient's nurse. Per ED note, patient went to bed at 8 PM last night and woke up around 5:30 AM with confusion and weakness. She had decreased responsiveness. Per the patient's nurse is seems the patient has right gaze deviation with left facial weakness upon speaking to the family this is new. Patient is on home dose of eliquis 5 mg a tablet twice a day. Patient stated that she's taking anticoagulation and stated that she has not missed her medication to her knowledge. As stated the patient has history of advanced bronchogenic carcinoma with metastasis and has started radiation treatment. Patient was recently discharged from our facility on 01/22/2022 again she had a biopsy consistent with metastatic pulmonary adenocarcinoma and started the recent radiation therapy. Objective - Vital Signs Vital signs: Vital Signs Temp 98.0 F 01/25/22 12:00 Pulse 62 01/25/22 12:00 Resp 21 01/25/22 12:00 BP 118/62 01/25/22 12:00 Pulse Ox 98 01/25/22 12:00 FiO2 Intake & Output 01/24/22 01/25/22 01/25/22 18:59 06:59 18:59 Intake Total 1091.167 650 600 Output Total 600 400 200 Balance 491.167 250 400 Weight 87.2 kg 88.7 kg Intake: IV 800 500 600 Sodium Chloride 0.9% 1, 800 500 600 000 ml @ 100 mls/hr IV . Q10H SAMANTHA Rx#:[id number] Intake, IV Titration 291.167 100 Amount Amiodarone 450 mg In 250 Dextrose 5% in Water 250 ml @ 0.5 MG/MIN 16.667 mls/hr IV .Q15H SAMANTHA Rx#: [id number] Cefepime 2 gm In Sodium 100 Chloride 0.9% 100 ml @ 25 mls/hr IVPB Q8H SAMANTHA Rx#: [id number] Diltiazem 125 mg In 41.167 Sodium Chloride 0.9% 100 ml @ 10 MG/HR 10 mls/hr IV .[id number] SAMANTHA Rx#: [id number] Oral 50 Output: Urine 600 400 200 Other: Voiding Method External Catheter External Catheter External Catheter # Voids 1 - Exam Gen.: The patient is reclining in the bed. She is sleeping. She is in no acute distress. HEENT: Head is atraumatic, normocephalic. Fundus not visualized. There is no scleral icterus. Mucous membranes are dry. Neurological examination Mental status: The patient is sleeping but, easily aroused. Her speech is clear. She is oriented to name, date of , age, location and current year. Cranial nerves: Pupils are equal at 3 mm and reactive. There is a left upper motor neuron facial droop. The patient's tongue protrudes to the left. Motor: There is decreased movement of the left upper extremity. The patient is observed moving her right upper and lower extremities without difficulty. - Labs CBC & Chem 7: 01/24/22 07:11 01/24/22 07:11 Labs: Microbiology - Last 24 Hours (Table) 01/23/22 17:53 Blood Culture - Preliminary Blood No Growth after 24 hours Assessment and Plan Assessment: -Acute/subacute ischemia involving a large region of the right MCA distribution with additional foci of acute subacute ischemia involving bilateral frontal, parietal and occipital with additional region and left cerebellar hemisphere. Due to multiple vascular territories involved, embolic source is suggested. Clinically: Left facial weakness, gaze deviation left hemiparesis is due to likely acute ischemic stroke. -Right MCA thrombus at anterior sylvian fissure per CTA -History of advanced bronchogenic carcinoma with skeletal metastasis and biopsy consistent with metastatic pulmonary adenocarcinoma post radiation therapy -Encephalopathy due to acute ischemic stroke and likely underlying UTI and possible aspiration pneumonia -Atrial flutter on eliquis -Fever but no leukocytosis -Elevated troponin -Hyperkalemia -Former tobacco use Plan: 1. Agree with continued hold of anticoagulation 2. Aspirin 81 mg and Brilinta 90 mg 3. Continue stroke workup with speech therapy occupational therapy and physical therapy evaluations 4. Agree with transthoracic echocardiogram in light of the family's decision to make the patient DNR Time with Patient: Less than 30 (Spent 20 minutes examining patient and speaking with daughter. An additional 20 minutes was spent , reviewing labs, imaging reports and preparing this note)
[2022-01-25] MEDS: ATORVASTATIN 80 MG TAB PO SCH (21:07)
[2022-01-26] MEDS: HYDROmorphone 1 MG/ML 1 ML SYRINGE IVP PRN ×3 (03:47→16:02)
[2022-01-26] MEDS: SODIUM CHLORIDE 0.9% 1,000 ML IV SCH ×2 (05:27→08:58)
[2022-01-26] MEDS: PANTOPRAZOLE 40 MG TABLET PO SCH (05:28)
[2022-01-26] MEDS: CEFEPIME 2 GM in SODIUM CHLORIDE 0.9% 100 ML IVPB SCH ×3 (05:36→21:12)
--- NOTE | 2022-01-26 06:25 | P.PN ---
Subjective Progress Note Date: 01/26/22 Principal diagnosis: Paroxysmal atrial fibrillation This is a 76-year-old female patient was known to her service from before with a past medical history significant for lung cancer with metastasis to the bone documented on biopsy was performed recently as well as history of paroxysmal atrial fibrillation. We consulted to see the patient in the intensive care unit for further evaluation of atrial fibrillation with rapid ventricular response. The patient was discharge in the hospital recently after she was admitted with atrial fibrillation with rapid ventricular response and that was a new diagnosis to her and she was discharged on oral anticoagulation with Eliquis. During her last hospital stay she underwent an echo which revealed preserved left ventricle systolic function and right ventricular systolic function was no significant valvular abnormalities. This time she was brought to the emergency department was change in mental status as well as evidence of focal neurologic finding with left sided weakness associated with some slurred speech and confusion/change in mental status. Further investigation in the emergency department was performed including computed tomography scan of the brain which showed hypodense area in the right temporal lobe. Neurology was consulted. Beside that she underwent an EKG initially and that showed atrial fibrillation with rapid ventricular response but subsequently the patient was started on IV Cardizem and IV amiodaro ne and converted to normal sinus mechanism. She was seen and evaluated this morning. She has been maintaining sinus rhythm was sinus bradycardia and her pressure started going low. I'm going to stop the Cardizem IV and continue amiodarone IV. She is unable to take any medication orally at this point. We are going to discuss with the neurology service to start the patient on heparin IV for safe from the urology standpoint of view. The patient is in process of having MRI of the brain in the next 12 hours. No indication that she is experiencing any symptoms of chest pain or chest discomfort or any shortness of breath at this point. She is somewhat poor historian giving the recent diagno sis of stroke. January 25 The patient was seen and evaluated this morning. She does have change in mental status. She continues to be in and out of atrial fibrillation. Currently she is on amiodarone IV. She passed the swallow evaluation for that reason want to stop the amiodarone IV and start the patient on amiodarone by mouth. We consulted neurology regarding starting the patient on anticoagulation and the decision was no for possible increased risk of intracranial bleeding. The MRI showed infarction in the distribution of the right middle cerebral artery. Currently she is on dual antiplatelet therapy. January [id number] The patient was seen and evaluated this morning she was transferred out of the intensive care unit yesterday. Her mentation is definitely better and she is oriented 3 this morning. She is to have severe left sided weakness associated with mild slurred speech. Hemodynamically she is stable. She continues to be on dual antiplatelet therapy. She has been maintaining normal sinus mechanism and currently she is on amiodarone by mouth. Oral anticoagulation is on hold at this point as requested by the neurology service because of risk of intracranial bleeding. Hemodynamically she is stable was admitted with a blood pressure and heart rate. Currently she is on also statin beside dual antiplatelet therapy. From a cardiovascular standpoint of view, we'll continue the current medical regimen and follow-up with echo which was performed yesterday. Objective - Vital Signs Vital signs: Vital Signs Temp 98.3 F 01/26/22 04:00 Pulse 70 01/26/22 04:00 Resp 16 01/26/22 04:00 BP 140/61 01/26/22 04:00 Pulse Ox 95 01/26/22 04:00 FiO2 Intake & Output 01/25/22 01/25/22 01/26/22 06:59 18:59 06:59 Intake Total 650 900 50 Output Total 400 1380 375 Balance 250 -480 -325 Weight 88.7 kg Intake: IV 500 900 Sodium Chloride 0.9% 1, 500 900 000 ml @ 100 mls/hr IV . Q10H [facility] Rx#:[id number] Intake, IV Titration 100 Amount Cefepime 2 gm In Sodium 100 Chloride 0.9% 100 ml @ 25 mls/hr IVPB Q8H [facility] Rx#: [id number] Oral 50 50 Output: Urine 400 1380 375 Other: Voiding Method External Catheter External Catheter External Catheter # Bowel Movements 1 - Constitutional General appearance: Present: no acute distress - Respiratory Respiratory: bilateral: CTA - Cardiovascular Rhythm: regular - Labs CBC & Chem 7: 01/24/22 07:11 01/24/22 07:11 Labs: Microbiology - Last 24 Hours (Table) 01/23/22 17:53 Blood Culture - Preliminary Blood No Growth after 48 hours 01/25/22 02:27 Urine Culture - Preliminary Urine,Voided Assessment and Plan Assessment: Assessment #1 change in mental status #2 stroke in the distribution of the right middle cerebral artery #3 proximal atrial fibrillation #4 hypertension #5 lung cancer with metastasis to bone Plan #1 continue the current medical regimen #2 continue dual antiplatelet therapy along with a statin #3 continue the current dose of amiodarone and taper the dose down the line #4 follow-up on the echo
[2022-01-26] MEDS: SYMBICORT 160-4.5 MCG INHALER INHALATION SCH ×2 (07:59→19:25)
[2022-01-26] MEDS: AMIODARONE 200 MG TAB PO SCH (08:57)
[2022-01-26] MEDS: LIDOCAINE 5% PATCH TOPICAL SCH (08:57)
[2022-01-26] MEDS: METOPROLOL TARTRATE 50 MG TAB PO SCH ×2 (08:58→21:11)
[2022-01-26] MEDS: ASPIRIN 81 MG PO SCH (08:58)
[2022-01-26] MEDS: amLODIPine 5 MG TAB PO SCH (08:58)
[2022-01-26] MEDS: TICAGRELOR 90 MG TAB PO SCH ×2 (08:58→21:10)
[2022-01-26] MEDS: SENNOSIDES-DOCUSATE SODIUM 1 EACH TAB PO SCH ×3 (08:58→21:10)
--- NOTE | 2022-01-26 09:42 | P.PN ---
Subjective Progress Note Date: 01/26/22 Gracie Ybarra, is a 76-year-old female who presented to [facility] emergency room with a chief complaint of confusion weakness decreased responsiveness and left facial drooping. Patient was recently admitted to [facility] with low back pain with evidence of metastatic dise ase to the bone biopsy was done and revealed evidence of primary pulmonary cancer with metastatic disease she received radiation therapy and was discharged home on 01/22/2022 patient also has known history of atrial fibrillation maintained on Eliquis. She was evaluated in the emergency room vital examination on presentation revealed a temperature of 100.1 pulse 140 respiration 18 and blood pressure 145/59 pulse ox 93% on room air Laboratory data revealed a white blood count of 9.3 hemoglobin 10.7 platelet count 205 troponin 0.665 Testing in the emergency room revealed computed tomography scan of the brain revealed hypodensity in the right temporal lobe that could be an acute right middle cerebral artery infarct. 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 Patient was admitted to intensive care unit, neurology consultation was requested. Consultation was also placed for cardiology and oncology for follow-up. On 01/24/2022 patient is alert still with notable left facial droop. Per nursing staff plans for MRI today per neurology services. Infectious disease oncology and oncology service is consulted. Cardiology services also following. Current vital signs temp 99.1, heart rate 68, respiratory rate 14, blood pressure 130/60., Oxygen saturation 96% on 2 L On 01/25/2022 patient was seen and examined in the ICU she is alert and oriented 2 in no apparent distress, she is answering questions appropriately, she still has right sided gaze, and has severe left upper extremity weakness and moderate left lower extremity weakness, she is denying any pain or discomfort at this time, MRI done on 01/24/2022 revealed large region of acute/subacute ischemia in the right MCA distribution, embolic source is suggested, vital exam at this time reveals a temperature of 97.7 pulse 68 respiration 16 blood pressure 136/60 pulse ox 98% on 3 L nasal cannula 01/26/2022 patient has been moved out of the intensive care unit currently on selective care. Patient is alert and oriented 3. Patient's mentation doesn't improve. Patient remains on cefepime. Cardiology, neurology, infectious disease and oncology services are following. Current vital signs temp 98.4, heart rate 72, respiratory rate 18, blood pressure 137/73 patient satting 97% on 2 L. Patient denies chest pain or shortness breath. Patient nausea vomiting or diarrhea patient denies any urinary burning or frequency Objective - Vital Signs Vital signs: Vital Signs Temp 98.4 F 01/26/22 08:50 Pulse 72 01/26/22 08:50 Resp 18 01/26/22 08:50 BP 137/73 01/26/22 08:50 Pulse Ox 97 01/26/22 08:50 FiO2 Intake & Output 01/25/22 01/26/22 01/26/22 18:59 06:59 18:59 Intake Total 900 50 Output Total 1380 375 Balance -480 -325 Intake: IV 900 Sodium Chloride 0.9% 1, 900 000 ml @ 100 mls/hr IV . Q10H [facility] Rx#:[id number] Oral 50 Output: Urine 1380 375 Other: Voiding Method External Catheter External Catheter Indwelling Catheter # Bowel Movements 1 - Exam In general patient is alert and oriented, she has left facial drooping and right sided gaze HEENT head normocephalic and atraumatic Neck is supple no JVD no goiter no lymphadenopathy no carotid bruit Chest examination is clear to auscultation no crackles no wheezing Cardiac exam reveals regular heart sounds S1 and S2 no gallops no murmurs Abdomen is soft nontender no organomegaly with normal bowel sounds Extremity exam reveals no edema no cyanosis or clubbing Neurological examination reveals mental status patient is alert and oriented speech is fluent, there is left facial drooping and right sided gaze, motor exam reveals significant weakness on the left upper extremity which is at 1 out of 5, and weakness in the left lower extremity which is at 2 out of 5, there is some sensory deficit on the left side although unable to assess properly due to patient cooperation, reflexes are 1+ bilaterally and plantars are equivocal. - Labs CBC & Chem 7: 01/24/22 07:11 01/24/22 07:11 Labs: Microbiology - Last 24 Hours (Table) 01/23/22 17:53 Blood Culture - Preliminary Blood No Growth after 48 hours 01/25/22 02:27 Urine Culture - Preliminary Urine,Voided Assessment and Plan Plan: Acute ischemic stroke, right middle cerebral artery distribution Underlying history of atrial fibrillation Underlying history of lung cancer with metastatic bone disease Underlying history of hypertension Underlying history of hyperlipidemia Underlying history of COPD Underlying history of gastroesophageal reflux disease At this time patient is admitted to ICU She was evaluated by neurology and was started on Brillinta Cardiology consultation requested in that regard to atrial fibrillation Oncology consultation requested in regard lung cancer with metastatic bone disease Pain is well controlled at this time per patient CODE STATUS is no code Prognosis is guarded will follow closely MRI today 01/24/2022
--- NOTE | 2022-01-26 15:04 | CA ---
Transthoracic Echo Report Name: Gracie Ybarra Age: 76 Gender: F : 1945 Exam Date: 01/25/2022 12:23 Exam Location: [facility] Ht (in): 65 Wt (lb): 192 Ordering Physician: Lakhwinder Bullock MD ([id number]) Attending/Referring Phys: Sewer Connector Shahnaz Ruiz RDCS Procedure CPT: Indications: pfo Cardiac Hx: Technical Quality: Fair Contrast 1: Total Dose (mL): Contrast 2: Total Dose (mL): MEASUREMENTS (Male / Female) Normal Values 2D ECHO LV Diastolic Diameter PLAX 4.1 cm 4.2 - 5.9 / 3.9 - 5.3 cm LV Systolic Diameter PLAX 3.0 cm IVS Diastolic Thickness 1.3 cm 0.6 - 1.0 / 0.6 - 0.9 cm LVPW Diastolic Thickness 1.2 cm 0.6 - 1.0 / 0.6 - 0.9 cm LV Relative Wall Thickness 0.6 LA Volume 65.1 cm??? 18 - 58 / 22 - 52 cm??? M-MODE Aortic Root Diameter MM 2.9 cm LA Systolic Diameter MM 4.3 cm LA Ao Ratio MM 1.5 AV Cusp Separation MM 1.7 cm DOPPLER AV Peak Velocity 199.7 cm/s AV Peak Gradient 15.9 mmHg AV Mean Velocity 131.7 cm/s AV Mean Gradient 8.0 mmHg AV Velocity Time Integral 45.6 cm AI Peak Velocity 461.8 cm/s AI Peak Gradient 85.3 mmHg AI Pressure Half Time 580.2 ms LVOT Peak Velocity 142.1 cm/s LVOT Peak Gradient 8.1 mmHg LVOT Velocity Time Integral 32.2 cm MV Area PHT 2.8 cm??? Mitral E Point Velocity 102.0 cm/s Mitral A Point Velocity 111.7 cm/s Mitral E to A Ratio 0.9 MV Deceleration Time 266.4 ms MV E' Velocity 6.4 cm/s Mitral E to MV E' Ratio 15.9 TR Peak Velocity 323.3 cm/s TR Peak Gradient 41.8 mmHg Right Ventricular Systolic Press 45.6 mmHg FINDINGS Left Ventricle Moderately increased left ventricular wall thickness. Normal left ventricular systolic function with no obvious regional wall motion abnormalities. Left ventricular ejection fraction is estimated at 55 %. Right Ventricle Normal right ventricular size and function. Mild pulmonary hypertension. Right ventricular systolic pressure estimated at 46 mm hg. Right Atrium Mild right atrial dilatation. Left Atrium Moderately increased left atrial volume. Mildly increased left atrial area. No evidence for an atrial septal defect. Mitral Valve Structurally normal mitral valve. [id number] mitral regurgitation. Aortic Valve Trileaflet aortic valve. Moderate aortic regurgitation. Tricuspid Valve Structurally normal tricuspid valve. Mild tricuspid regurgitation. Pulmonic Valve Trace pulmonic regurgitation. Pericardium No pericardial effusion. Aorta Normal size aortic root and proximal ascending aorta. CONCLUSIONS Normal left ventricular systolic function Mild to moderate mitral regurgitation Aortic sclerosis with moderate aortic insufficiency Previewed by: Dr. Lakhwinder Bullock MD (Electronically Signed) Final Date: 26 January 2022 15:03
--- NOTE | 2022-01-26 16:02 | P.PN ---
Subjective Progress Note Date: 01/25/22 Principal diagnosis: Fever Patient is a 76-year-old female presenting to the hospital with mental status changes and weakness currently being worked up for CVA did have a positive UA and some right-sided infiltrate concerning for UTI plus minus pneumonia. On today's evaluation that is , the patient is afebrile today, patient is sleepy but arousable, denies any chest pain shortness of breath occasional cough no abdominal pain and no diarrhea has been reported by the nursing staff Objective - Vital Signs Vital signs: Vital Signs Temp 98.0 F 01/25/22 12:00 Pulse 62 01/25/22 12:00 Resp 21 01/25/22 12:00 BP 118/62 01/25/22 12:00 Pulse Ox 98 01/25/22 12:00 FiO2 Intake & Output 01/24/22 01/25/22 01/25/22 18:59 06:59 18:59 Intake Total 1091.167 650 600 Output Total 600 400 200 Balance 491.167 250 400 Weight 87.2 kg 88.7 kg Intake: IV 800 500 600 Sodium Chloride 0.9% 1, 800 500 600 000 ml @ 100 mls/hr IV . Q10H [facility] Rx#:[id number] Intake, IV Titration 291.167 100 Amount Amiodarone 450 mg In 250 Dextrose 5% in Water 250 ml @ 0.5 MG/MIN 16.667 mls/hr IV .Q15H [facility] Rx#: [id number] Cefepime 2 gm In Sodium 100 Chloride 0.9% 100 ml @ 25 mls/hr IVPB Q8H [facility] Rx#: [id number] Diltiazem 125 mg In 41.167 Sodium Chloride 0.9% 100 ml @ 10 MG/HR 10 mls/hr IV .[id number] [facility] Rx#: [id number] Oral 50 Output: Urine 600 400 200 Other: Voiding Method External Catheter External Catheter External Catheter # Voids 1 - Exam GENERAL DESCRIPTION: An elderly female lying in bed in no distress RESPIRATORY SYSTEM: Unlabored breathing , decreased breath sounds at bases HEART: S1 S2 regular rate and rhythm , ABDOMEN: Soft , no tenderness EXTREMITIES: No edema feet - Labs CBC & Chem 7: 01/24/22 07:11 01/24/22 07:11 Labs: Microbiology - Last 24 Hours (Table) 01/23/22 17:53 Blood Culture - Preliminary Blood No Growth after 24 hours Assessment and Plan (1) Fever Current Visit: Yes Status: Acute Code(s): R50.9 - FEVER, UNSPECIFIED SNOMED Code(s): 043473145 Plan: 1patient with a low-grade fever and this patient presented to hospital with mental status changes weakness with concern for a CVA patient did have a positive UA could be likely contributing to her low-grade fever and also right lower lobe infiltrate concerning for possible pneumonia in this patient who do have a history of metastatic bronchogenic carcinoma 2- Blood cultures are so far negative, urine culture pending the patient p rocalcitonin was normal 3-patient fever has resolved and will continue with cefepime while waiting for the culture to finalize Time with Patient: Less than 30
--- NOTE | 2022-01-26 16:03 | P.PN ---
Subjective Progress Note Date: 01/26/22 Principal diagnosis: Fever Patient is a 76-year-old female presenting to the hospital with mental status changes and weakness currently being worked up for CVA did have a positive UA and some right-sided infiltrate concerning for UTI plus minus pneumonia. On today's evaluation that is 01/26/2022, the patient remains to be afebriley, patient has been moved out of the ICU, patient is more awake and alert and denies any chest pain shortness of breath occasional cough no abdominal pain and no diarrhea has been reported by the nursing staff Objective - Vital Signs Vital signs: Vital Signs Temp 98.1 F 01/26/22 15:46 Pulse 71 01/26/22 15:46 Resp 18 01/26/22 15:46 BP 148/65 01/26/22 15:46 Pulse Ox 97 01/26/22 15:46 FiO2 Intake & Output 01/25/22 01/26/22 01/26/22 18:59 06:59 18:59 Intake Total 900 50 100 Output Total 1380 375 Balance -480 -325 100 Intake: IV 900 Sodium Chloride 0.9% 1, 900 000 ml @ 100 mls/hr IV . Q10H [facility] Rx#:[id number] Oral 50 100 Output: Urine 1380 375 Other: Voiding Method External Catheter External Catheter Indwelling Catheter # Bowel Movements 1 - Exam GENERAL DESCRIPTION: An elderly female lying in bed in no distress RESPIRATORY SYSTEM: Unlabored breathing , decreased breath sounds at bases HEART: S1 S2 regular rate and rhythm , ABDOMEN: Soft , no tenderness EXTREMITIES: No edema feet - Labs CBC & Chem 7: 01/24/22 07:11 01/24/22 07:11 Labs: Microbiology - Last 24 Hours (Table) 01/23/22 17:53 Blood Culture - Preliminary Blood No Growth after 48 hours 01/25/22 02:27 Urine Culture - Preliminary Urine,Voided Assessment and Plan (1) Fever Current Visit: Yes Status: Acute Code(s): R50.9 - FEVER, UNSPECIFIED SNOMED Code(s): 360071546 Plan: 1patient with a low-grade fever and this patient presented to hospital with mental status changes weakness with concern for a CVA patient did have a positive UA could be likely contributing to her low-grade fever and also right lower lobe infiltrate concerning for possible pneumonia in this patient who do have a history of metastatic bronchogenic carcinoma 2- Blood cultures are so far negative, urine culture are still pending 3-patient seemed to show some clinical improvement and will continue with cefepime while waiting for the culture to finalize Family the bedside questions were answered Time with Patient: Less than 30
[2022-01-26] MEDS: HYDROcodone/APAP 10-325MG 1 EACH TAB PO PRN (21:09)
[2022-01-26] MEDS: ATORVASTATIN 80 MG TAB PO SCH (21:11)
[2022-01-27] MEDS: METOPROLOL TARTRATE 50 MG TAB PO SCH ×2 (04:34→21:30)
[2022-01-27] MEDS: AMIODARONE 200 MG TAB PO SCH ×2 (04:34→21:30)
[2022-01-27] MEDS: HYDROmorphone 1 MG/ML 1 ML SYRINGE IVP PRN ×3 (05:01→18:09)
[2022-01-27] MEDS: SODIUM CHLORIDE 0.9% 1,000 ML IV SCH ×3 (05:41→23:46)
[2022-01-27] MEDS: PANTOPRAZOLE 40 MG TABLET PO SCH ×2 (06:36→06:39)
[2022-01-27] MEDS: CEFEPIME 2 GM in SODIUM CHLORIDE 0.9% 100 ML IVPB SCH ×3 (06:37→23:08)
[2022-01-27] MEDS: ALPRAZolam 0.25 MG TAB PO PRN (06:39)
[2022-01-27 08:16] LABS: Basophils % (A) 0 %; Eosinophils # (A) 0.4 k/uL (0-0.7); Eosinophils % (A) 3 %; HCT 32.9 % (34.0-46.0); HGB 10.4 gm/dL (11.4-16.0); Hypochromasia Marked; Lymphocytes # (A) 0.3 k/uL (1.0-4.8); Lymphocytes % (A) 2 %; MCH 28.1 pg (25.0-35.0); MCHC 31.5 g/dL (31.0-37.0); MCV 89.2 fL (80.0-100.0); Mean Platelet Volume 8.1; Monocytes # (A) 0.7 k/uL (0-1.0); Monocytes % (A) 6 %; Neutrophils # (A) 10.9 k/uL (1.3-7.7); Neutrophils % (A) 88 %; Platelet Count 217 k/uL (150-450); RBC 3.69 m/uL (3.80-5.40); RDW 13.1 % (11.5-15.5); WBC 12.4 k/uL (3.8-10.6)
[2022-01-27] MEDS: SYMBICORT 160-4.5 MCG INHALER INHALATION SCH ×2 (08:16→19:09)
[2022-01-27 08:20] LABS: ALT 43 U/L (4-34); AST 58 U/L (14-36); African American GFR (CKD) >90 (>60 ml/min/1.73 sqM); Albumin 2.4 g/dL (3.5-5.0); Alkaline Phosphatase 94 U/L (38-126); Anion Gap 5 mmol/L; Blood Urea Nitrogen 14 mg/dL (7-17); Calcium 7.5 mg/dL (8.4-10.2); Carbon Dioxide 24 mmol/L (22-30); Chloride 111 mmol/L (98-107); Glucose 110 mg/dL (74-99); Non-African American GFR(CKD) >90 (>60 ml/min/1.73 sqM); Potassium 3.5 mmol/L (3.5-5.1); Sodium 140 mmol/L (137-145); Total Bilirubin 0.5 mg/dL (0.2-1.3); Total Protein 5.1 g/dL (6.3-8.2)
[2022-01-27] MEDS: TICAGRELOR 90 MG TAB PO SCH ×2 (08:28→21:30)
[2022-01-27] MEDS: SENNOSIDES-DOCUSATE SODIUM 1 EACH TAB PO SCH ×2 (08:28→21:28)
[2022-01-27] MEDS: amLODIPine 5 MG TAB PO SCH (08:28)
[2022-01-27] MEDS: ASPIRIN 81 MG PO SCH (08:28)
[2022-01-27] MEDS: LIDOCAINE 5% PATCH TOPICAL SCH (08:29)
--- NOTE | 2022-01-27 13:05 | P.PN ---
Progress Note - Text Progress Note Date: 01/27/22 Pt not seen today. Per request from Case Management, statement needed for placement. Pt will not receive treatment for cancer until she is discharged from rehabilitation.
--- NOTE | 2022-01-27 13:06 | P.PN ---
Subjective Progress Note Date: 01/27/22 This is a 76-year-old female patient was known to her service from before with a past medical history significant for lung cancer with metastasis to the bone documented on biopsy was performed recently as well as history of paroxysmal atrial fibrillation. She was recently discharged from the hospital after she was admitted with atrial fibrillation with rapid ventricular response as a new diagnosis and she was discharged on oral anticoagulation with Eliquis. During her hospital stay she underwent echocardiogram which revealed preserved LV systolic function and no significant valvular abnormalities. She presented this admission with change in mental status as well as evidence of focal neurologic f inding with left-sided weakness, slurred speech, confusion and facial droop. Computed tomography scan and MRI both confirmed large area of infarct. Echocardiogram with Doppler study repeated this admission showed a normal LV systolic function with no evidence of ASD, mild to moderate MR and moderate aortic regurgitation. She's been having paroxysms of A. fib with RVR. She is currently on dual antiplatelet therapy as neurology's recommendation was to hold off on anticoagulation for 5-7 days. She is currently on oral amiodarone. Upon examination the patient seems somewhat confused. She does not believe she had a stroke and states it is a rumor. She continues to have left-sided weakness but seems to be neglecting that side and says she has no issues with movement. Objective - Vital Signs Vital signs: Vital Signs Temp 97.0 F L 01/27/22 11:17 Pulse 124 H 01/27/22 11:17 Resp 14 01/27/22 11:17 BP 152/62 01/27/22 11:17 Pulse Ox 95 01/27/22 11:17 FiO2 Intake & Output 01/26/22 01/27/22 01/27/22 18:59 06:59 18:59 Intake Total 100 Output Total 400 500 Balance -300 -500 Intake: Oral 100 Output: Urine 400 500 Other: Voiding Method Indwelling Catheter Indwelling Catheter Indwelling Catheter # Bowel Movements 1 - Exam PHYSICAL EXAMINATION: HEENT: Head is atraumatic, normocephalic. Pupils equal, round. Neck is supple. There is no elevated jugular venous pressure. HEART EXAMINATION: Heart sounds regular, S1 and S2 normal. No murmur or gallop heard. At the time of my exam she is in normal sinus rhythm however continues to have paroxysmal atrial fibrillation with heart rates in the 120s to 130s at times. CHEST EXAMINATION: Lungs are clear to auscultation and precussion. No chest wall tenderness is noted on palpation or with deep breathing. ABDOMEN: Soft, nontender. Bowel sounds are heard. No organomegaly noted. EXTREMITIES: 2+ peripheral pulses with no evidence of peripheral edema and no calf tenderness noted. NEUROLOGIC patient is awake, alert and oriented x3 but confused in regards to her diagnosis. Continues to have left-sided weakness, facial droop. . - Labs CBC & Chem 7: 01/27/22 07:23 01/27/22 07:23 Labs: Abnormal Lab Results - Last 24 Hours (Table) 01/27/22 01/27/22 Range/Units 07:23 07:23 WBC 12.4 H (3.8-10.6) k/uL RBC 3.69 L (3.80-5.40) m/uL Hgb 10.4 L (11.4-16.0) gm/dL Hct 32.9 L (34.0-46.0) % Neutrophils # 10.9 H (1.3-7.7) k/uL Lymphocytes # 0.3 L (1.0-4.8) k/uL Chloride 111 H (98-107) mmol/L Glucose 110 H (74-99) mg/dL Calcium 7.5 L (8.4-10.2) mg/dL AST 58 H (14-36) U/L ALT 43 H (4-34) U/L Total Protein 5.1 L (6.3-8.2) g/dL Albumin 2.4 L (3.5-5.0) g/dL Microbiology - Last 24 Hours (Table) 01/25/22 02:27 Urine Culture - Final Urine,Voided 01/23/22 17:53 Blood Culture - Preliminary Blood No Growth after 72 hours Assessment and Plan Assessment: #1 change in mental status #2 stroke in the distribution of the right middle cerebral artery #3 proximal atrial fibrillation #4 hypertension #5 lung cancer with metastasis to bone Plan: From cardiology's perspective resume anticoagulation when okay with neurology. We will increase the amiodarone. Depending on the response further recommendations will be made. PATROL GUARD note has been reviewed, I agree with a documented findings and plan of care. Patient was seen and examined.
--- NOTE | 2022-01-27 17:33 | P.PN ---
Subjective Progress Note Date: 01/27/22 Gracie Ybarra, is a 76-year-old female who presented to [facility] emergency room with a chief complaint of confusion weakness decreased responsiveness and left facial drooping. Patient was recently admitted to [facility] with low back pain with evidence of metastatic dise ase to the bone biopsy was done and revealed evidence of primary pulmonary cancer with metastatic disease she received radiation therapy and was discharged home on 01/22/2022 patient also has known history of atrial fibrillation maintained on Eliquis. She was evaluated in the emergency room vital examination on presentation revealed a temperature of 100.1 pulse 140 respiration 18 and blood pressure 145/59 pulse ox 93% on room air Laboratory data revealed a white blood count of 9.3 hemoglobin 10.7 platelet count 205 troponin 0.665 Testing in the emergency room revealed computed tomography scan of the brain revealed hypodensity in the right temporal lobe that could be an acute right middle cerebral artery infarct. 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 Patient was admitted to intensive care unit, neurology consultation was requested. Consultation was also placed for cardiology and oncology for follow-up. On 01/24/2022 patient is alert still with notable left facial droop. Per nursing staff plans for MRI today per neurology services. Infectious disease oncology and oncology service is consulted. Cardiology services also following. Current vital signs temp 99.1, heart rate 68, respiratory rate 14, blood pressure 130/60., Oxygen saturation 96% on 2 L On 01/25/2022 patient was seen and examined in the ICU she is alert and oriented 2 in no apparent distress, she is answering questions appropriately, she still has right sided gaze, and has severe left upper extremity weakness and moderate left lower extremity weakness, she is denying any pain or discomfort at this time, MRI done on 01/24/2022 revealed large region of acute/subacute ischemia in the right MCA distribution, embolic source is suggested, vital exam at this time reveals a temperature of 97.7 pulse 68 respiration 16 blood pressure 136/60 pulse ox 98% on 3 L nasal cannula 01/26/2022 patient has been moved out of the intensive care unit currently on selective care. Patient is alert and oriented 3. Patient's mentation has improved. Patient remains on cefepime. Cardiology, neurology, infectious disease and oncology services are following. Current vital signs temp 98.4, heart rate 72, respiratory rate 18, blood pressure 137/73 patient satting 97% on 2 L. Patient denies chest pain or shortness breath. Patient nausea vomiting or diarrhea patient denies any urinary burning or frequency On 01/27/2022 patient was seen and examined on the telemetry floor she is alert and oriented 3 in no apparent distress, there is no fever or chills no headache or dizziness no chest pain no shortness of breath no cough no nausea or vomiting no abdominal pain no diarrhea and no urinary symptoms her temperature is 90.7 pulse 124 respiration 14 blood pressure 152/62 pulse ox 95% on 2 L nasal cannula her white blood count is 12.4 hemoglobin 10.4 platelet count 217 BUN 14 creatinine 0.5 at this time we are awaiting neurology recommendation in that regard to restarting Eliquiss continue was physical therapy and occupational therapy patient will need to go to a rehab after this admission Objective - Vital Signs Vital signs: Vital Signs Temp 97.0 F L 01/27/22 11:17 Pulse 124 H 01/27/22 11:17 Resp 14 01/27/22 11:17 BP 152/62 01/27/22 11:17 Pulse Ox 95 01/27/22 11:17 FiO2 Intake & Output 01/26/22 01/27/22 01/27/22 18:59 06:59 18:59 Intake Total 100 Output Total 400 500 Balance -300 -500 Weight 88.7 kg Intake: Oral 100 Output: Urine 400 500 Other: Voiding Method Indwelling Catheter Indwelling Catheter Indwelling Catheter # Bowel Movements 1 - Exam In general patient is alert and oriented, she has left facial drooping and right sided gaze HEENT head normocephalic and atraumatic Neck is supple no JVD no goiter no lymphadenopathy no carotid bruit Chest examination is clear to auscultation no crackles no wheezing Cardiac exam reveals regular heart sounds S1 and S2 no gallops no murmurs Abdomen is soft nontender no organomegaly with normal bowel sounds Extremity exam reveals no edema no cyanosis or clubbing Neurological examination reveals mental status patient is alert and oriented speech is fluent, there is left facial drooping and right sided gaze, motor exam reveals significant weakness on the left upper extremity which is at 1 out of 5, and weakness in the left lower extremity which is at 2 out of 5, there is some sensory deficit on the left side although unable to assess properly due to patient cooperation, reflexes are 1+ bilaterally and plantars are equivocal. - Labs CBC & Chem 7: 01/27/22 07:23 01/27/22 07:23 Labs: Abnormal Lab Results - Last 24 Hours (Table) 01/27/22 01/27/22 Range/Units 07:23 07:23 WBC 12.4 H (3.8-10.6) k/uL RBC 3.69 L (3.80-5.40) m/uL Hgb 10.4 L (11.4-16.0) gm/dL Hct 32.9 L (34.0-46.0) % Neutrophils # 10.9 H (1.3-7.7) k/uL Lymphocytes # 0.3 L (1.0-4.8) k/uL Chloride 111 H (98-107) mmol/L Glucose 110 H (74-99) mg/dL Calcium 7.5 L (8.4-10.2) mg/dL AST 58 H (14-36) U/L ALT 43 H (4-34) U/L Total Protein 5.1 L (6.3-8.2) g/dL Albumin 2.4 L (3.5-5.0) g/dL Microbiology - Last 24 Hours (Table) 01/25/22 02:27 Urine Culture - Final Urine,Voided 01/23/22 17:53 Blood Culture - Preliminary Blood No Growth after 72 hours Assessment and Plan Plan: Acute ischemic stroke, right middle cerebral artery distribution Underlying history of atrial fibrillation Underlying history of lung cancer with metastatic bone disease Underlying history of hypertension Underlying history of hyperlipidemia Underlying history of COPD Underlying history of gastroesophageal reflux disease At this time patient is admitted to ICU She was evaluated by neurology and was started on Brillinta Cardiology consultation requested in that regard to atrial fibrillation Oncology consultation requested in regard lung cancer with metastatic bone disease Pain is well controlled at this time per patient CODE STATUS is no code Prognosis is guarded will follow closely MRI today 01/24/2022
[2022-01-27] MEDS: ATORVASTATIN 80 MG TAB PO SCH (21:30)
[2022-01-28] MEDS: HYDROcodone/APAP 10-325MG 1 EACH TAB PO PRN ×2 (00:57→06:45)
[2022-01-28] MEDS: CEFEPIME 2 GM in SODIUM CHLORIDE 0.9% 100 ML IVPB SCH ×3 (06:19→22:04)
[2022-01-28] MEDS: SODIUM CHLORIDE 0.9% 1,000 ML IV SCH ×2 (06:22→22:47)
[2022-01-28] MEDS: SYMBICORT 160-4.5 MCG INHALER INHALATION SCH ×2 (09:10→20:23)
[2022-01-28] MEDS: SENNOSIDES-DOCUSATE SODIUM 1 EACH TAB PO SCH ×2 (09:31→20:37)
[2022-01-28] MEDS: LIDOCAINE 5% PATCH TOPICAL SCH (09:45)
[2022-01-28] MEDS: ASPIRIN 81 MG PO SCH (09:46)
[2022-01-28] MEDS: amLODIPine 5 MG TAB PO SCH (09:46)
[2022-01-28] MEDS: TICAGRELOR 90 MG TAB PO SCH ×2 (09:46→20:53)
[2022-01-28] MEDS: AMIODARONE 200 MG TAB PO SCH ×2 (09:46→20:53)
[2022-01-28] MEDS: METOPROLOL TARTRATE 50 MG TAB PO SCH ×2 (09:46→20:53)
--- NOTE | 2022-01-28 12:27 | FL ---
EXAMINATION TYPE: FL barium swallow w video DATE OF EXAM: 01/28/2022 MODIFIED SWALLOW / DEGLUTITION STUDY CLINICAL HISTORY: Dysphagia. Rule out aspiration. Recent stroke. TECHNIQUE: Deglutition study is performed utilizing thin liquid barium, honey and nectar thick liqui d barium, barium thick pudding, and barium coated cracker. 1 minute 30 seconds of fluoro time and 0 images obtained. COMPARISON: Non-. FINDINGS: The oral and pharyngeal phases show satisfactory initiation and propagation with all modali ties tested. Poor mastication is seen with single attempt with solid material. There is silent aspira tion with thin liquid barium. No penetration or aspiration with other modalities tested. No significa nt pharyngeal residue was appreciated. IMPRESSION: Silent aspiration with thin liquid barium. Please refer to speech therapist notes for further details if necessary.
--- NOTE | 2022-01-28 13:11 | P.PN ---
Subjective Progress Note Date: 01/28/22 This is a 76-year-old female patient was known to her service from before with a past medical history significant for lung cancer with metastasis to the bone documented on biopsy was performed recently as well as history of paroxysmal atrial fibrillation. She was recently discharged from the hospital after she was admitted with atrial fibrillation with rapid ventricular response as a new diagnosis and she was discharged on oral anticoagulation with Eliquis. During her hospital stay she underwent echocardiogram which revealed preserved LV systolic function and no significant valvular abnormalities. She presented this admission with change in mental status as well as evidence of focal neurologic f inding with left-sided weakness, slurred speech, confusion and facial droop. Computed tomography scan and MRI both confirmed large area of infarct. Echocardiogram with Doppler study repeated this admission showed a normal LV systolic function with no evidence of ASD, mild to moderate MR and moderate aortic regurgitation. She's been having paroxysms of A. fib with RVR. She is currently on dual antiplatelet therapy as neurology's recommendation was to hold off on anticoagulation for 5-7 days. She is currently on oral amiodarone. Upon examination the patient seems somewhat confused. She does not believe she had a stroke and states it is a rumor. She continues to have left-sided weakness but seems to be neglecting that side and says she has no issues with movement. 01/28/2022 Upon examination patient's vital syncopal event. She continues to have left- sided neglect with left-sided weakness facial droop. She seems much more aware today and is able to verbalize that she did in fact have a stroke. She is anticipating being discharged to rehab. She is maintaining sinus mechanism continues to have brief episodes of PAF. Currently on amiodarone 200 mg by mouth twice a day, aspirin, Brilinta, and metoprolol 50 mg by mouth twice a day. Objective - Vital Signs Vital signs: Vital Signs Temp 98.0 F 01/28/22 04:00 Pulse 48 L 01/28/22 04:00 Resp 14 01/28/22 04:00 BP 138/60 01/28/22 04:00 Pulse Ox 98 01/28/22 04:00 FiO2 Intake & Output 01/27/22 01/28/22 01/28/22 18:59 06:59 18:59 Intake Total 0 Output Total 500 675 Balance -500 -675 0 Weight 88.7 kg 87 kg Intake: Oral 0 Output: Urine 500 675 Other: Voiding Method Indwelling Catheter Indwelling Catheter # Bowel Movements 1 - Exam PHYSICAL EXAMINATION: HEENT: Head is atraumatic, normocephalic. Pupils equal, round. Neck is supple. There is no elevated jugular venous pressure. HEART EXAMINATION: Heart sounds regular, S1 and S2 normal. No murmur or gallop heard. . CHEST EXAMINATION: Lungs are clear to auscultation and precussion. No chest wall tenderness is noted on palpation or with deep breathing. ABDOMEN: Soft, nontender. Bowel sounds are heard. No organomegaly noted. EXTREMITIES: 2+ peripheral pulses with no evidence of peripheral edema and no calf tenderness noted. NEUROLOGIC patient is awake, alert and oriented x3. Continues to have left- sided weakness, facial droop and left-sided neglect. . - Labs CBC & Chem 7: 01/27/22 07:23 01/27/22 07:23 Labs: Microbiology - Last 24 Hours (Table) 01/23/22 17:53 Blood Culture - Preliminary Blood No Growth after 96 hours Assessment and Plan Assessment: #1 change in mental status #2 stroke in the distribution of the right middle cerebral artery #3 paroxysmal atrial fibrillation #4 hypertension #5 lung cancer with metastasis to bone Plan: From cardiology's perspective resume anticoagulation if okay with neurology. Continue current dose of amiodarone and metoprolol. Continue to follow the patient during this admission and provide further recommendations accordingly. POWER HOUSE ENGINEER note has been reviewed, I agree with a documented findings and plan of care. Patient was seen and examined.
[2022-01-28] MEDS: HYDROmorphone 1 MG/ML 1 ML SYRINGE IVP PRN (16:58)
--- NOTE | 2022-01-28 17:06 | P.PN ---
Subjective Progress Note Date: 01/28/22 Gracie Ybarra, is a 76-year-old female who presented to [facility] emergency room with a chief complaint of confusion weakness decreased responsiveness and left facial drooping. Patient was recently admitted to [facility] with low back pain with evidence of metastatic dise ase to the bone biopsy was done and revealed evidence of primary pulmonary cancer with metastatic disease she received radiation therapy and was discharged home on 01/22/2022 patient also has known history of atrial fibrillation maintained on Eliquis. She was evaluated in the emergency room vital examination on presentation revealed a temperature of 100.1 pulse 140 respiration 18 and blood pressure 145/59 pulse ox 93% on room air Laboratory data revealed a white blood count of 9.3 hemoglobin 10.7 platelet count 205 troponin 0.665 Testing in the emergency room revealed computed tomography scan of the brain revealed hypodensity in the right temporal lobe that could be an acute right middle cerebral artery infarct. 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 Patient was admitted to intensive care unit, neurology consultation was requested. Consultation was also placed for cardiology and oncology for follow-up. On 01/24/2022 patient is alert still with notable left facial droop. Per nursing staff plans for MRI today per neurology services. Infectious disease oncology and oncology service is consulted. Cardiology services also following. Current vital signs temp 99.1, heart rate 68, respiratory rate 14, blood pressure 130/60., Oxygen saturation 96% on 2 L On 01/25/2022 patient was seen and examined in the ICU she is alert and oriented 2 in no apparent distress, she is answering questions appropriately, she still has right sided gaze, and has severe left upper extremity weakness and moderate left lower extremity weakness, she is denying any pain or discomfort at this time, MRI done on 01/24/2022 revealed large region of acute/subacute ischemia in the right MCA distribution, embolic source is suggested, vital exam at this time reveals a temperature of 97.7 pulse 68 respiration 16 blood pressure 136/60 pulse ox 98% on 3 L nasal cannula 01/26/2022 patient has been moved out of the intensive care unit currently on selective care. Patient is alert and oriented 3. Patient's mentation has improved. Patient remains on cefepime. Cardiology, neurology, infectious disease and oncology services are following. Current vital signs temp 98.4, heart rate 72, respiratory rate 18, blood pressure 137/73 patient satting 97% on 2 L. Patient denies chest pain or shortness breath. Patient nausea vomiting or diarrhea patient denies any urinary burning or frequency On 01/27/2022 patient was seen and examined on the telemetry floor she is alert and oriented 3 in no apparent distress, there is no fever or chills no headache or dizziness no chest pain no shortness of breath no cough no nausea or vomiting no abdominal pain no diarrhea and no urinary symptoms her temperature is 90.7 pulse 124 respiration 14 blood pressure 152/62 pulse ox 95% on 2 L nasal cannula her white blood count is 12.4 hemoglobin 10.4 platelet count 217 BUN 14 creatinine 0.5 at this time we are awaiting neurology recommendation in that regard to restarting Eliquiss continue was physical therapy and occupational therapy patient will need to go to a rehab after this admission. On 01/28/2022 patient was seen and examined on the telemetry floor she is alert and oriented 3 in no apparent distress, she is still complaining of low back pain otherwise she denies any complaints there is no fever or chills, no headache or dizziness no chest pain no shortness of breath no cough no nausea or vomiting no abdominal pain no diarrhea and no urinary symptoms Objective - Vital Signs Vital signs: Vital Signs Temp 98.0 F 01/28/22 04:00 Pulse 48 L 01/28/22 04:00 Resp 14 01/28/22 04:00 BP 138/60 01/28/22 04:00 Pulse Ox 98 01/28/22 04:00 FiO2 Intake & Output 01/27/22 01/28/22 01/28/22 18:59 06:59 18:59 Output Total 500 675 Balance -500 -675 Weight 88.7 kg 87 kg Output: Urine 500 675 Other: Voiding Method Indwelling Catheter Indwelling Catheter # Bowel Movements 1 - Exam In general patient is alert and oriented, she has left facial drooping and right sided gaze HEENT head normocephalic and atraumatic Neck is supple no JVD no goiter no lymphadenopathy no carotid bruit Chest examination is clear to auscultation no crackles no wheezing Cardiac exam reveals regular heart sounds S1 and S2 no gallops no murmurs Abdomen is soft nontender no organomegaly with normal bowel sounds Extremity exam reveals no edema no cyanosis or clubbing Neurological examination reveals mental status patient is alert and oriented speech is fluent, there is left facial drooping and right sided gaze, motor exam reveals significant weakness on the left upper extremity which is at 1 out of 5, and weakness in the left lower extremity which is at 2 out of 5, there is some sensory deficit on the left side although unable to assess properly due to agustin ent cooperation, reflexes are 1+ bilaterally and plantars are equivocal. - Labs CBC & Chem 7: 01/27/22 07:23 01/27/22 07:23 Labs: Abnormal Lab Results - Last 24 Hours (Table) 01/27/22 01/27/22 Range/Units 07:23 07:23 WBC 12.4 H (3.8-10.6) k/uL RBC 3.69 L (3.80-5.40) m/uL Hgb 10.4 L (11.4-16.0) gm/dL Hct 32.9 L (34.0-46.0) % Neutrophils # 10.9 H (1.3-7.7) k/uL Lymphocytes # 0.3 L (1.0-4.8) k/uL Chloride 111 H (98-107) mmol/L Glucose 110 H (74-99) mg/dL Calcium 7.5 L (8.4-10.2) mg/dL AST 58 H (14-36) U/L ALT 43 H (4-34) U/L Total Protein 5.1 L (6.3-8.2) g/dL Albumin 2.4 L (3.5-5.0) g/dL Microbiology - Last 24 Hours (Table) 01/23/22 17:53 Blood Culture - Preliminary Blood No Growth after 96 hours Assessment and Plan Plan: Acute ischemic stroke, right middle cerebral artery distribution Underlying history of atrial fibrillation Underlying history of lung cancer with metastatic bone disease Underlying history of hypertension Underlying history of hyperlipidemia Underlying history of COPD Underlying history of gastroesophageal reflux disease At this time patient is admitted to ICU She was evaluated by neurology and was started on Brillinta Cardiology consultation requested in that regard to atrial fibrillation Oncology consultation requested in regard lung cancer with metastatic bone disease Pain is well controlled at this time per patient CODE STATUS is no code Prognosis is guarded will follow closely MRI today 01/24/2022
[2022-01-28] MEDS: ATORVASTATIN 80 MG TAB PO SCH (20:54)
[2022-01-28] MEDS: ALPRAZolam 0.25 MG TAB PO PRN (23:50)
[2022-01-29] MEDS: CEFEPIME 2 GM in SODIUM CHLORIDE 0.9% 100 ML IVPB SCH ×3 (06:28→22:28)
[2022-01-29] MEDS: PANTOPRAZOLE 40 MG TABLET PO SCH (06:31)
[2022-01-29] MEDS: HYDROcodone/APAP 10-325MG 1 EACH TAB PO PRN ×2 (06:31→15:54)
[2022-01-29] MEDS: SODIUM CHLORIDE 0.9% 1,000 ML IV SCH ×2 (06:33→19:48)
[2022-01-29 07:54] LABS: Basophils % (A) 0 %; Eosinophils # (A) 0.3 k/uL (0-0.7); Eosinophils % (A) 5 %; HCT 31.5 % (34.0-46.0); HGB 10.2 gm/dL (11.4-16.0); Hypochromasia Slight; Lymphocytes # (A) 0.3 k/uL (1.0-4.8); Lymphocytes % (A) 4 %; MCH 28.2 pg (25.0-35.0); MCHC 32.3 g/dL (31.0-37.0); MCV 87.1 fL (80.0-100.0); Mean Platelet Volume 8.3; Monocytes # (A) 0.5 k/uL (0-1.0); Monocytes % (A) 6 %; Neutrophils % (A) 83 %; Platelet Count 188 k/uL (150-450); RBC 3.62 m/uL (3.80-5.40); RDW 13.2 % (11.5-15.5); WBC 7.3 k/uL (3.8-10.6)
[2022-01-29 08:12] LABS: ALT 54 U/L (4-34); AST 76 U/L (14-36); African American GFR (CKD) >90 (>60 ml/min/1.73 sqM); Albumin 2.7 g/dL (3.5-5.0); Alkaline Phosphatase 110 U/L (38-126); Anion Gap 5 mmol/L; Blood Urea Nitrogen 13 mg/dL (7-17); Calcium 7.7 mg/dL (8.4-10.2); Carbon Dioxide 24 mmol/L (22-30); Chloride 110 mmol/L (98-107); Glucose 91 mg/dL (74-99); Non-African American GFR(CKD) >90 (>60 ml/min/1.73 sqM); Potassium 3.3 mmol/L (3.5-5.1); Sodium 139 mmol/L (137-145); Total Bilirubin 0.5 mg/dL (0.2-1.3); Total Protein 5.4 g/dL (6.3-8.2)
[2022-01-29] MEDS: SENNOSIDES-DOCUSATE SODIUM 1 EACH TAB PO SCH (08:38)
[2022-01-29] MEDS: AMIODARONE 200 MG TAB PO SCH ×2 (08:38→22:27)
[2022-01-29] MEDS: METOPROLOL TARTRATE 50 MG TAB PO SCH ×2 (08:38→22:27)
[2022-01-29] MEDS: TICAGRELOR 90 MG TAB PO SCH ×2 (08:38→22:27)
[2022-01-29] MEDS: ASPIRIN 81 MG PO SCH (08:38)
[2022-01-29] MEDS: LIDOCAINE 5% PATCH TOPICAL SCH (08:38)
[2022-01-29] MEDS: amLODIPine 5 MG TAB PO SCH (08:38)
[2022-01-29] MEDS: SYMBICORT 160-4.5 MCG INHALER INHALATION SCH ×2 (09:13→19:29)
[2022-01-29 11:10] VITALS: BMI 30.4
--- NOTE | 2022-01-29 13:51 | P.PN ---
Subjective Progress Note Date: 01/29/22 This is a 76-year-old female patient was known to her service from before with a past medical history significant for lung cancer with metastasis to the bone documented on biopsy was performed recently as well as history of paroxysmal atrial fibrillation. She was recently discharged from the hospital after she was admitted with atrial fibrillation with rapid ventricular response as a new diagnosis and she was discharged on oral anticoagulation with Eliquis. During her hospital stay she underwent echocardiogram which revealed preserved LV systolic function and no significant valvular abnormalities. She presented this admission with change in mental status as well as evidence of focal neurologic f inding with left-sided weakness, slurred speech, confusion and facial droop. Computed tomography scan and MRI both confirmed large area of infarct. Echocardiogram with Doppler study repeated this admission showed a normal LV systolic function with no evidence of ASD, mild to moderate MR and moderate aortic regurgitation. She's been having paroxysms of A. fib with RVR. She is currently on dual antiplatelet therapy as neurology's recommendation was to hold off on anticoagulation for 5-7 days. She is currently on oral amiodarone. Upon examination the patient seems somewhat confused. She does not believe she had a stroke and states it is a rumor. She continues to have left-sided weakness but seems to be neglecting that side and says she has no issues with movement. 01/28/2022 Upon examination She continues to have left-sided neglect with left-sided weakness facial droop. She seems much more aware today and is able to verbalize that she did in fact have a stroke. She is anticipating being discharged to rehab. She is maintaining sinus mechanism continues to have brief episodes of PAF. Currently on amiodarone 200 mg by mouth twice a day, aspirin, Brilinta, and metoprolol 50 mg by mouth twice a day. 01/29/2022 The patient was seen and examined sitting up in a chair. She continues to have left-sided neglect and weakness. She is anticipating being discharged to rehab. Awaiting neurology recommendations in regards to anticoagulation. She is maintaining sinus mechanism at this time. Objective - Vital Signs Vital signs: Vital Signs Temp 97.8 F 01/29/22 11:56 Pulse 62 01/29/22 11:56 Resp 19 01/29/22 11:56 BP 166/96 01/29/22 11:56 Pulse Ox 97 01/29/22 11:56 FiO2 Intake & Output 01/28/22 01/29/22 01/29/22 18:59 06:59 18:59 Intake Total 970 118 Output Total 800 Balance 970 -800 118 Weight 83 kg 83 kg Intake: IV 550 Sodium Chloride 0.9% 1, 550 000 ml @ 100 mls/hr IV . Q10H [facility] Rx#:[id number] Intake, IV Titration 100 Amount Cefepime 2 gm In Sodium 100 Chloride 0.9% 100 ml @ 25 mls/hr IVPB Q8H [facility] Rx#: [id number] Oral 320 118 Output: Urine 800 Uretheral (Lindquist) 400 Other: Voiding Method Indwelling Catheter Indwelling Catheter Indwelling Catheter # Bowel Movements 0 - Exam PHYSICAL EXAMINATION: HEENT: Head is atraumatic, normocephalic. Pupils equal, round. Neck is supple. There is no elevated jugular venous pressure. HEART EXAMINATION: Heart sounds regular, S1 and S2 normal. No murmur or gallop heard. . CHEST EXAMINATION: Lungs are clear to auscultation and precussion. No chest wall tenderness is noted on palpation or with deep breathing. ABDOMEN: Soft, nontender. Bowel sounds are heard. No organomegaly noted. EXTREMITIES: 2+ peripheral pulses with no evidence of peripheral edema and no calf tenderness noted. NEUROLOGIC patient is awake, alert and oriented x3. Continues to have left- sided weakness, facial droop and left-sided neglect. . - Labs CBC & Chem 7: 01/29/22 07:19 01/29/22 07:19 Labs: Abnormal Lab Results - Last 24 Hours (Table) 01/29/22 01/29/22 Range/Units 07:19 07:19 RBC 3.62 L (3.80-5.40) m/uL Hgb 10.2 L (11.4-16.0) gm/dL Hct 31.5 L (34.0-46.0) % Lymphocytes # 0.3 L (1.0-4.8) k/uL Potassium 3.3 L (3.5-5.1) mmol/L Chloride 110 H (98-107) mmol/L Creatinine 0.51 L (0.52-1.04) mg/dL Calcium 7.7 L (8.4-10.2) mg/dL AST 76 H (14-36) U/L ALT 54 H (4-34) U/L Total Protein 5.4 L (6.3-8.2) g/dL Albumin 2.7 L (3.5-5.0) g/dL Microbiology - Last 24 Hours (Table) 01/23/22 17:53 Blood Culture - Preliminary Blood No Growth after 120 hours Assessment and Plan Assessment: #1 change in mental status #2 stroke in the distribution of the right middle cerebral artery #3 paroxysmal atrial fibrillation #4 hypertension #5 lung cancer with metastasis to bone Plan: From cardiology's perspective resume anticoagulation if okay with neurology. Continue current dose of amiodarone and metoprolol. Continue to follow the patient during this admission and provide further recommendations accordingly. VISUAL ARTIST note has been reviewed, I agree with a documented findings and plan of care. Patient was seen and examined.
--- NOTE | 2022-01-29 14:33 | P.PN ---
Subjective Progress Note Date: 01/28/22 Patient was seen for a follow-up. He shouldn't initially seen by Dr. Kevyn Akers. Please refer to his note for details. Patient has history of metastatic cancer. Also had acute right MCA territory stroke with left hemiplegia. Patient is laying comfortably in the bed. Offers no complaints. Objective - Vital Signs Vital signs: Vital Signs Temp 97.5 F L 01/28/22 16:00 Pulse 68 01/28/22 16:00 Resp 16 01/28/22 16:00 BP 142/73 01/28/22 16:00 Pulse Ox 100 01/28/22 16:00 FiO2 Intake & Output 01/28/22 01/28/22 01/29/22 06:59 18:59 06:59 Intake Total 970 Output Total 675 Balance -675 970 Weight 87 kg Intake: IV 550 Sodium Chloride 0.9% 1, 550 000 ml @ 100 mls/hr IV . Q10H [facility] Rx#:[id number] Intake, IV Titration 100 Amount Cefepime 2 gm In Sodium 100 Chloride 0.9% 100 ml @ 25 mls/hr IVPB Q8H [facility] Rx#: [id number] Oral 320 Output: Urine 675 Other: Voiding Method Indwelling Catheter Indwelling Catheter # Bowel Movements 1 - Exam Patient is somnolent. She has right head deviation, and right gaze preference. Patient knows her name very confucianist, but states is 38 years old. Patient has left facial weakness. Patient has left visual field deficit. Patient is left hemiplegic, arm worse than leg. She moves her left foot better with plantar stimulation. Patient has Babinski on the left. - Labs CBC & Chem 7: 01/29/22 07:19 01/29/22 07:19 Labs: Microbiology - Last 24 Hours (Table) 01/23/22 17:53 Blood Culture - Preliminary Blood No Growth after 96 hours Assessment and Plan Assessment: -Acute/subacute ischemia involving a large region of the right MCA distribution with additional foci of acute subacute ischemia involving bilateral frontal, parietal and occipital with additional region and left cerebellar hemisphere. Due to multiple vascular territories involved, embolic source is suggested. Clinically: Left facial weakness, gaze deviation left hemiparesis is due to likely acute ischemic stroke. -Right MCA thrombus at anterior sylvian fissure per CTA -History of advanced bronchogenic carcinoma with skeletal metastasis and biopsy consistent with metastatic pulmonary adenocarcinoma post radiation therapy -Encephalopathy due to acute ischemic stroke and likely underlying UTI and possible aspiration pneumonia -Atrial flutter on eliquis -Fever but no leukocytosis -Elevated troponin -Hyperkalemia -Former tobacco use Plan: 1. Agree with continued hold of anticoagulation 2. Aspirin 81 mg and Brilinta 90 mg 3. Continue stroke workup with speech therapy occupational therapy and physical therapy evaluations 4. 2-D echo revealed normal left ventricular systolic function with EF 55%. Mild to moderate mitral regurgitation. Aortic sclerosis with moderate aortic insufficiency. Left atrium moderately increased volume. No shunt. 5. Per nursing report, family not making decision regarding transfer to subacute care versus hospice.
--- NOTE | 2022-01-29 14:55 | P.PN ---
Subjective Progress Note Date: 01/29/22 Gracie Ybarra, is a 76-year-old female who presented to [facility] emergency room with a chief complaint of confusion weakness decreased responsiveness and left facial drooping. Patient was recently admitted to [facility] with low back pain with evidence of metastatic dise ase to the bone biopsy was done and revealed evidence of primary pulmonary cancer with metastatic disease she received radiation therapy and was discharged home on 01/22/2022 patient also has known history of atrial fibrillation maintained on Eliquis. She was evaluated in the emergency room vital examination on presentation revealed a temperature of 100.1 pulse 140 respiration 18 and blood pressure 145/59 pulse ox 93% on room air Laboratory data revealed a white blood count of 9.3 hemoglobin 10.7 platelet count 205 troponin 0.665 Testing in the emergency room revealed computed tomography scan of the brain revealed hypodensity in the right temporal lobe that could be an acute right middle cerebral artery infarct. 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 Patient was admitted to intensive care unit, neurology consultation was requested. Consultation was also placed for cardiology and oncology for follow-up. On 01/24/2022 patient is alert still with notable left facial droop. Per nursing staff plans for MRI today per neurology services. Infectious disease oncology and oncology service is consulted. Cardiology services also following. Current vital signs temp 99.1, heart rate 68, respiratory rate 14, blood pressure 130/60., Oxygen saturation 96% on 2 L On 01/25/2022 patient was seen and examined in the ICU she is alert and oriented 2 in no apparent distress, she is answering questions appropriately, she still has right sided gaze, and has severe left upper extremity weakness and moderate left lower extremity weakness, she is denying any pain or discomfort at this time, MRI done on 01/24/2022 revealed large region of acute/subacute ischemia in the right MCA distribution, embolic source is suggested, vital exam at this time reveals a temperature of 97.7 pulse 68 respiration 16 blood pressure 136/60 pulse ox 98% on 3 L nasal cannula 01/26/2022 patient has been moved out of the intensive care unit currently on selective care. Patient is alert and oriented 3. Patient's mentation has improved. Patient remains on cefepime. Cardiology, neurology, infectious disease and oncology services are following. Current vital signs temp 98.4, heart rate 72, respiratory rate 18, blood pressure 137/73 patient satting 97% on 2 L. Patient denies chest pain or shortness breath. Patient nausea vomiting or diarrhea patient denies any urinary burning or frequency On 01/27/2022 patient was seen and examined on the telemetry floor she is alert and oriented 3 in no apparent distress, there is no fever or chills no headache or dizziness no chest pain no shortness of breath no cough no nausea or vomiting no abdominal pain no diarrhea and no urinary symptoms her temperature is 90.7 pulse 124 respiration 14 blood pressure 152/62 pulse ox 95% on 2 L nasal cannula her white blood count is 12.4 hemoglobin 10.4 platelet count 217 BUN 14 creatinine 0.5 at this time we are awaiting neurology recommendation in that regard to restarting Eliquiss continue was physical therapy and occupational therapy patient will need to go to a rehab after this admission. On 01/28/2022 patient was seen and examined on the telemetry floor she is alert and oriented 3 in no apparent distress, she is still complaining of low back pain otherwise she denies any complaints there is no fever or chills, no headache or dizziness no chest pain no shortness of breath no cough no nausea or vomiting no abdominal pain no diarrhea and no urinary symptoms On 01/29/2022 patient is alert and oriented 3. Per neurology services will order repeat computed tomography scan this before resuming eliquis which will likely be held per protocol for 7 days after ischemic stroke. Patient denies chest pain or shortness breath. Patient denies nausea vomiting or diarrhea. Patient denies any urinary burning or frequency Objective - Vital Signs Vital signs: Vital Signs Temp 97.8 F 01/29/22 11:56 Pulse 62 01/29/22 11:56 Resp 19 01/29/22 11:56 BP 166/96 01/29/22 11:56 Pulse Ox 97 01/29/22 11:56 FiO2 Intake & Output 01/28/22 01/29/22 01/29/22 18:59 06:59 18:59 Intake Total 970 118 Output Total 800 Balance 970 -800 118 Weight 83 kg 83 kg Intake: IV 550 Sodium Chloride 0.9% 1, 550 000 ml @ 100 mls/hr IV . Q10H [facility] Rx#:[id number] Intake, IV Titration 100 Amount Cefepime 2 gm In Sodium 100 Chloride 0.9% 100 ml @ 25 mls/hr IVPB Q8H [facility] Rx#: [id number] Oral 320 118 Output: Urine 800 Uretheral (Lindquist) 400 Other: Voiding Method Indwelling Catheter Indwelling Catheter Indwelling Catheter # Bowel Movements 0 - Exam In general patient is alert and oriented, she has left facial drooping and right sided gaze HEENT head normocephalic and atraumatic Neck is supple no JVD no goiter no lymphadenopathy no carotid bruit Chest examination is clear to auscultation no crackles no wheezing Cardiac exam reveals regular heart sounds S1 and S2 no gallops no murmurs Abdomen is soft nontender no organomegaly with normal bowel sounds Extremity exam reveals no edema no cyanosis or clubbing Neurological examination reveals mental status patient is alert and oriented speech is fluent, there is left facial drooping and right sided gaze, motor exam reveals significant weakness on the left upper extremity which is at 1 out of 5, and weakness in the left lower extremity which is at 2 out of 5, there is some sensory deficit on the left side although unable to assess properly due to patient cooperation, reflexes are 1+ bilaterally and plantars are equivocal. - Labs CBC & Chem 7: 01/29/22 07:19 01/29/22 07:19 Labs: Abnormal Lab Results - Last 24 Hours (Table) 01/29/22 01/29/22 Range/Units 07:19 07:19 RBC 3.62 L (3.80-5.40) m/uL Hgb 10.2 L (11.4-16.0) gm/dL Hct 31.5 L (34.0-46.0) % Lymphocytes # 0.3 L (1.0-4.8) k/uL Potassium 3.3 L (3.5-5.1) mmol/L Chloride 110 H (98-107) mmol/L Creatinine 0.51 L (0.52-1.04) mg/dL Calcium 7.7 L (8.4-10.2) mg/dL AST 76 H (14-36) U/L ALT 54 H (4-34) U/L Total Protein 5.4 L (6.3-8.2) g/dL Albumin 2.7 L (3.5-5.0) g/dL Microbiology - Last 24 Hours (Table) 01/23/22 17:53 Blood Culture - Preliminary Blood No Growth after 120 hours Assessment and Plan Plan: Acute ischemic stroke, right middle cerebral artery distribution Underlying history of atrial fibrillation Underlying history of lung cancer with metastatic bone disease Underlying history of hypertension Underlying history of hyperlipidemia Underlying history of COPD Underlying history of gastroesophageal reflux disease At this time patient is admitted to ICU She was evaluated by neurology and was started on Brillinta Cardiology consultation requested in that regard to atrial fibrillation Oncology consultation requested in regard lung cancer with metastatic bone disease Pain is well controlled at this time per patient CODE STATUS is no code Prognosis is guarded will follow closely MRI today 01/24/2022 Repeat computed tomography scan to be ordered per neurology services
--- NOTE | 2022-01-29 18:18 | CT ---
EXAMINATION TYPE: CT brain wo con CT DLP: 2245.8 mGycm, Automated exposure control for dose reduction was used. DATE OF EXAM: 01/29/2022 6:07 PM COMPARISON: 01/23/2022 CLINICAL INDICATION:Female, 76 years old with history of follow up CVA r/o bleed prior to start antic oags, ams, weakness, recent cva TECHNIQUE: Brain: Axial CT images of the brain were obtained with coronal and sagittal reformats created and rev iewed. Contrast used: None. Oral contrast used: None. FINDINGS: Brain: Extra-axial spaces: No abnormal extra-axial fluid collections. Ventricular system: Within normal limits Cerebral parenchyma: Evolution of right MCA territory infarct involving the right temporal lobe and r ight frontal and parietal regions. Overall this is not significantly changed compared to 01/29/2022 a nd distribution. No acute intraparenchymal hemorrhage or mass effect. The remainder of the arguello-whit e junctions are well differentiated. Cerebellum: Unremarkable. Mass effect: No evidence of midline shift. Intracranial vasculature: Atherosclerotic calcifications of the intracranial vessels. Soft tissues: Normal. Calvarium/osseous structures: No depressed skull fracture. Paranasal sinuses and mastoid air cells: Mild scattered paranasal sinus disease. Visualized orbits: Orbital contents are intact. IMPRESSION: Continued evolution of right MCA territory infarct. No evidence for intracranial hemorrhage.
[2022-01-29] MEDS: ATORVASTATIN 80 MG TAB PO SCH (22:27)
[2022-01-29] MEDS: HYDROmorphone 1 MG/ML 1 ML SYRINGE IVP PRN (22:43)
[2022-01-30] MEDS: PANTOPRAZOLE 40 MG TABLET PO SCH (06:59)
[2022-01-30] MEDS: SENNOSIDES-DOCUSATE SODIUM 1 EACH TAB PO SCH ×3 (07:01→22:20)
[2022-01-30] MEDS: SODIUM CHLORIDE 0.9% 1,000 ML IV SCH ×3 (07:46→22:21)
[2022-01-30] MEDS: METOPROLOL TARTRATE 50 MG TAB PO SCH ×2 (08:34→22:21)
[2022-01-30] MEDS: ASPIRIN 81 MG PO SCH (08:34)
[2022-01-30] MEDS: TICAGRELOR 90 MG TAB PO SCH (08:34)
[2022-01-30] MEDS: amLODIPine 5 MG TAB PO SCH (08:34)
[2022-01-30] MEDS: AMIODARONE 200 MG TAB PO SCH ×2 (08:35→22:20)
[2022-01-30] MEDS: HYDROcodone/APAP 10-325MG 1 EACH TAB PO PRN (08:35)
[2022-01-30] MEDS: LIDOCAINE 5% PATCH TOPICAL SCH (08:35)
[2022-01-30] MEDS ORDERED: ONDANSETRON 4 MG/2 ML VIAL IVP PRN (08:40)
[2022-01-30 09:03] LABS: ALT 47 U/L (4-34); AST 54 U/L (14-36); African American GFR (CKD) >90 (>60 ml/min/1.73 sqM); Albumin 2.6 g/dL (3.5-5.0); Alkaline Phosphatase 97 U/L (38-126); Anion Gap 3 mmol/L; Blood Urea Nitrogen 12 mg/dL (7-17); Calcium 7.8 mg/dL (8.4-10.2); Carbon Dioxide 26 mmol/L (22-30); Chloride 110 mmol/L (98-107); Glucose 93 mg/dL (74-99); Non-African American GFR(CKD) >90 (>60 ml/min/1.73 sqM); Potassium 3.5 mmol/L (3.5-5.1); Sodium 139 mmol/L (137-145); Total Bilirubin 0.5 mg/dL (0.2-1.3); Total Protein 5.3 g/dL (6.3-8.2)
[2022-01-30 09:25] LABS: Basophils # (A) 0.1 k/uL (0-0.2); Basophils % (A) 1 %; Eosinophils # (A) 0.4 k/uL (0-0.7); Eosinophils % (A) 5 %; HCT 32.1 % (34.0-46.0); HGB 9.9 gm/dL (11.4-16.0); Hypochromasia Marked; Lymphocytes # (A) 0.4 k/uL (1.0-4.8); Lymphocytes % (A) 4 %; MCH 27.7 pg (25.0-35.0); MCHC 30.8 g/dL (31.0-37.0); MCV 89.9 fL (80.0-100.0); Mean Platelet Volume 8.9; Monocytes # (A) 0.4 k/uL (0-1.0); Monocytes % (A) 4 %; Neutrophils # (A) 7.6 k/uL (1.3-7.7); Neutrophils % (A) 84 %; Platelet Count 181 k/uL (150-450); RBC 3.57 m/uL (3.80-5.40); RDW 13.5 % (11.5-15.5)
[2022-01-30] MEDS: SYMBICORT 160-4.5 MCG INHALER INHALATION SCH ×2 (09:48→21:38)
--- NOTE | 2022-01-30 10:28 | P.PN ---
Subjective Progress Note Date: 01/29/22 Patient was seen for a follow-up. He shouldn't initially seen by Dr. Kevyn Akers. Please refer to his note for details. Patient is a 76-year-old female presented with acute stroke. He shouldn't was not a candidate for IV TPA since she was outside the window. Patient has evidence of bilateral CVA, right hemispheric region more than left. Patient has right MCA thrombus at the anterior sylvian fissure and no intervention, due to advanced bronchogenic carcinoma with skeletal metastases and received radiation. Patient has atrial fibrillation, but held IV heparin or Eliquis because of large stroke. Dr. Landaverde recommended RONAK. Patient was placed on aspirin and Brilinta. Patient is sitting comfortably in the recliner. Offers no complaints. Denies headache, denies any dizziness. Objective - Vital Signs Vital signs: Vital Signs Temp 97.8 F 01/29/22 11:56 Pulse 62 01/29/22 11:56 Resp 19 01/29/22 11:56 BP 166/96 01/29/22 11:56 Pulse Ox 97 01/29/22 11:56 FiO2 Intake & Output 01/28/22 01/29/22 01/29/22 18:59 06:59 18:59 Intake Total 970 118 Output Total 800 Balance 970 -800 118 Weight 83 kg 83 kg Intake: IV 550 Sodium Chloride 0.9% 1, 550 000 ml @ 100 mls/hr IV . Q10H [facility] Rx#:[id number] Intake, IV Titration 100 Amount Cefepime 2 gm In Sodium 100 Chloride 0.9% 100 ml @ 25 mls/hr IVPB Q8H [facility] Rx#: [id number] Oral 320 118 Output: Urine 800 Uretheral (Lindquist) 400 Other: Voiding Method Indwelling Catheter Indwelling Catheter Indwelling Catheter # Bowel Movements 0 - Exam Patient is much more awake today. She has slight right head deviation, and right gaze preference. Patient knows her name, Gracie Ybarra. She states it is December 2021. Speech and language functions appears normal. Patient has left facial weakness. Patient has left homonymous hemianopia. Patient is left hemiparetic, but improved as compared to yesterday. 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 Patient is moving left leg very well. Patient has Babinski on the left. - Labs CBC & Chem 7: 01/30/22 08:01 01/30/22 08:01 Labs: Abnormal Lab Results - Last 24 Hours (Table) 01/29/22 01/29/22 Range/Units 07:19 07:19 RBC 3.62 L (3.80-5.40) m/uL Hgb 10.2 L (11.4-16.0) gm/dL Hct 31.5 L (34.0-46.0) % Lymphocytes # 0.3 L (1.0-4.8) k/uL Potassium 3.3 L (3.5-5.1) mmol/L Chloride 110 H (98-107) mmol/L Creatinine 0.51 L (0.52-1.04) mg/dL Calcium 7.7 L (8.4-10.2) mg/dL AST 76 H (14-36) U/L ALT 54 H (4-34) U/L Total Protein 5.4 L (6.3-8.2) g/dL Albumin 2.7 L (3.5-5.0) g/dL Microbiology - Last 24 Hours (Table) 01/23/22 17:53 Blood Culture - Preliminary Blood No Growth after 120 hours Assessment and Plan Assessment: -Acute/subacute ischemia involving a large region of the right MCA distribution with additional foci of acute subacute ischemia involving bilateral frontal, parietal and occipital with additional region and left cerebellar hemisphere. Due to multiple vascular territories involved, embolic source is suggested. Clinically: Left facial weakness, gaze deviation left hemiparesis is due to likely acute ischemic stroke. -Right MCA thrombus at anterior sylvian fissure per CTA -History of advanced bronchogenic carcinoma with skeletal metastasis and biopsy consistent with metastatic pulmonary adenocarcinoma post radiation therapy -Encephalopathy due to acute ischemic stroke and likely underlying UTI and possible aspiration pneumonia -Atrial flutter on eliquis, currently on hold because of large stroke. -Fever but no leukocytosis -Elevated troponin -Hyperkalemia -Former tobacco use Plan: 1. Repeat CT head performed today. Revealed continued evolution of right MCA territory infarct. No evidence for intracranial hemorrhage. I personally reviewed CT head, agree with the findings. Is there is no hemorrhage, may start Eliquis from a.m. 2. Currently patient on Aspirin 81 mg and Brilinta 90 mg 3. Continue stroke workup with speech therapy occupational therapy and physical therapy evaluations 4. 2-D echo revealed normal left ventricular systolic function with EF 55%. Mild to moderate mitral regurgitation. Aortic sclerosis with moderate aortic insufficiency. Left atrium moderately increased volume. No shunt. 5. Telemetry monitoring showing atrial fibrillation with rate controlled between 50 and 70.
--- NOTE | 2022-01-30 10:30 | P.PN ---
Subjective Progress Note Date: 01/27/22 Principal diagnosis: Fever Patient is a 76-year-old female presenting to the hospital with mental status changes and weakness currently being worked up for CVA did have a positive UA and some right-sided infiltrate concerning for UTI plus minus pneumonia. On today's evaluation that is 01/27/2022, the patient continues to be afebrile, patient slightly sleepy lethargic at the time of evaluation as the patient has just received a dose of Dilaudid per nursing staff, vomiting diarrhea or any other changes were reported by the nursing staff Objective - Vital Signs Vital signs: Vital Signs Temp 97.0 F L 01/27/22 11:17 Pulse 124 H 01/27/22 11:17 Resp 14 01/27/22 11:17 BP 152/62 01/27/22 11:17 Pulse Ox 95 01/27/22 11:17 FiO2 Intake & Output 01/26/22 01/27/22 01/27/22 18:59 06:59 18:59 Intake Total 100 Output Total 400 500 Balance -300 -500 Weight 88.7 kg Intake: Oral 100 Output: Urine 400 500 Other: Voiding Method Indwelling Catheter Indwelling Catheter Indwelling Catheter # Bowel Movements 1 - Exam GENERAL DESCRIPTION: An elderly female lying in bed in no distress RESPIRATORY SYSTEM: Unlabored breathing , decreased breath sounds at bases HEART: S1 S2 regular rate and rhythm , ABDOMEN: Soft , no tenderness EXTREMITIES: No edema feet - Labs CBC & Chem 7: 01/30/22 08:01 01/30/22 08:01 Labs: Abnormal Lab Results - Last 24 Hours (Table) 01/27/22 01/27/22 Range/Units 07:23 07:23 WBC 12.4 H (3.8-10.6) k/uL RBC 3.69 L (3.80-5.40) m/uL Hgb 10.4 L (11.4-16.0) gm/dL Hct 32.9 L (34.0-46.0) % Neutrophils # 10.9 H (1.3-7.7) k/uL Lymphocytes # 0.3 L (1.0-4.8) k/uL Chloride 111 H (98-107) mmol/L Glucose 110 H (74-99) mg/dL Calcium 7.5 L (8.4-10.2) mg/dL AST 58 H (14-36) U/L ALT 43 H (4-34) U/L Total Protein 5.1 L (6.3-8.2) g/dL Albumin 2.4 L (3.5-5.0) g/dL Microbiology - Last 24 Hours (Table) 01/25/22 02:27 Urine Culture - Final Urine,Voided 01/23/22 17:53 Blood Culture - Preliminary Blood No Growth after 72 hours Assessment and Plan (1) Fever Current Visit: Yes Status: Acute Code(s): R50.9 - FEVER, UNSPECIFIED SNOMED Code(s): 529352113 Plan: 1patient with a low-grade fever and this patient presented to hospital with mental status changes weakness with concern for a CVA patient did have a posit augusto UA could be likely contributing to her low-grade fever and also right lower lobe infiltrate concerning for possible pneumonia in this patient who do have a history of metastatic bronchogenic carcinoma 2- Blood cultures are so far negative, urine culture has not been finalized 3-patient has some clinical improvement and will continue with cefepime and monitor clinical course closely Time with Patient: Less than 30
--- NOTE | 2022-01-30 10:32 | P.PN ---
Subjective Progress Note Date: 01/28/22 Principal diagnosis: Fever Patient is a 76-year-old female presenting to the hospital with mental status changes and weakness currently being worked up for CVA did have a positive UA and some right-sided infiltrate concerning for UTI plus minus pneumonia. On today's evaluation that is 01/28/2022, the patient remains to be afebrile, patient is more awake and alert today, the patient is breathing comfortably on 2 L nasal cannula. Denies having any chest pain or shortness of breath occasional cough no abdominal pain or diarrhea Objective - Vital Signs Vital signs: Vital Signs Temp 97.2 F L 01/28/22 12:00 Pulse 62 01/28/22 14:00 Resp 14 01/28/22 14:00 BP 160/66 01/28/22 12:00 Pulse Ox 96 01/28/22 12:00 FiO2 Intake & Output 01/27/22 01/28/22 01/28/22 18:59 06:59 18:59 Intake Total 700 Output Total 500 675 Balance -500 -675 700 Weight 88.7 kg 87 kg Intake: IV 400 Sodium Chloride 0.9% 1, 400 000 ml @ 100 mls/hr IV . Q10H SAMANTHA Rx#:[id number] Intake, IV Titration 100 Amount Cefepime 2 gm In Sodium 100 Chloride 0.9% 100 ml @ 25 mls/hr IVPB Q8H SAMANTHA Rx#: [id number] Oral 200 Output: Urine 500 675 Other: Voiding Method Indwelling Catheter Indwelling Catheter Indwelling Catheter # Bowel Movements 1 - Exam GENERAL DESCRIPTION: An elderly female lying in bed in no distress RESPIRATORY SYSTEM: Unlabored breathing , decreased breath sounds at bases HEART: S1 S2 regular rate and rhythm , ABDOMEN: Soft , no tenderness EXTREMITIES: No edema feet - Labs CBC & Chem 7: 01/30/22 08:01 01/30/22 08:01 Labs: Microbiology - Last 24 Hours (Table) 01/23/22 17:53 Blood Culture - Preliminary Blood No Growth after 96 hours Assessment and Plan (1) Fever Current Visit: Yes Status: Acute Code(s): R50.9 - FEVER, UNSPECIFIED SNOMED Code(s): 086734277 Plan: 1patient with a low-grade fever and this patient presented to hospital with mental status changes weakness with concern for a CVA patient did have a positive UA could be likely contributing to her low-grade fever and also right lower lobe infiltrate concerning for possible pneumonia in this patient who do have a history of metastatic bronchogenic carcinoma 2- Blood cultures are so far negative, urine culture has negative as well 3-patient has some clinical improvement and will continue with cefepime to f inish a 7 day course of therapy for possible pneumonia Time with Patient: Less than 30
--- NOTE | 2022-01-30 10:33 | P.PN ---
Subjective Progress Note Date: 01/29/22 Principal diagnosis: Fever Patient is a 76-year-old female presenting to the hospital with mental status changes and weakness currently being worked up for CVA did have a positive UA and some right-sided infiltrate concerning for UTI plus minus pneumonia. On today's evaluation that is 01/29/2022, the patient denies any fever or chills, the patient is breathing comfortably on 2 L nasal cannula. The patient denies having any chest pain or shortness of breath occasional cough no abdominal pain or diarrhea Objective - Vital Signs Vital signs: Vital Signs Temp 97.8 F 01/29/22 11:56 Pulse 62 01/29/22 11:56 Resp 19 01/29/22 11:56 BP 166/96 01/29/22 11:56 Pulse Ox 97 01/29/22 11:56 FiO2 Intake & Output 01/28/22 01/29/22 01/29/22 18:59 06:59 18:59 Intake Total 970 118 Output Total 800 Balance 970 -800 118 Weight 83 kg 83 kg Intake: IV 550 Sodium Chloride 0.9% 1, 550 000 ml @ 100 mls/hr IV . Q10H SAMANTHA Rx#:[id number] Intake, IV Titration 100 Amount Cefepime 2 gm In Sodium 100 Chloride 0.9% 100 ml @ 25 mls/hr IVPB Q8H SAMANTHA Rx#: [id number] Oral 320 118 Output: Urine 800 Uretheral (Lindquist) 400 Other: Voiding Method Indwelling Catheter Indwelling Catheter Indwelling Catheter # Bowel Movements 0 - Exam GENERAL DESCRIPTION: An elderly female lying in bed in no distress RESPIRATORY SYSTEM: Unlabored breathing , decreased breath sounds at bases HEART: S1 S2 regular rate and rhythm , ABDOMEN: Soft , no tenderness EXTREMITIES: No edema feet - Labs CBC & Chem 7: 01/30/22 08:01 01/30/22 08:01 Labs: Abnormal Lab Results - Last 24 Hours (Table) 01/29/22 01/29/22 Range/Units 07:19 07:19 RBC 3.62 L (3.80-5.40) m/uL Hgb 10.2 L (11.4-16.0) gm/dL Hct 31.5 L (34.0-46.0) % Lymphocytes # 0.3 L (1.0-4.8) k/uL Potassium 3.3 L (3.5-5.1) mmol/L Chloride 110 H (98-107) mmol/L Creatinine 0.51 L (0.52-1.04) mg/dL Calcium 7.7 L (8.4-10.2) mg/dL AST 76 H (14-36) U/L ALT 54 H (4-34) U/L Total Protein 5.4 L (6.3-8.2) g/dL Albumin 2.7 L (3.5-5.0) g/dL Microbiology - Last 24 Hours (Table) 01/23/22 17:53 Blood Culture - Preliminary Blood No Growth after 120 hours Assessment and Plan (1) Fever Current Visit: Yes Status: Acute Code(s): R50.9 - FEVER, UNSPECIFIED SNOMED Code(s): 157313941 Plan: 1patient with a low-grade fever and this patient presented to hospital with mental status changes weakness with concern for a CVA patient did have a positive UA could be likely contributing to her low-grade fever and also right lower lobe infiltrate concerning for possible pneumonia in this patient who do have a history of metastatic bronchogenic carcinoma 2- Blood cultures are so far negative, urine culture has negative as well 3-patient has some clinical improvement and has received about a week of IV cefepime which should be more than enough for possible pneumonia, we will monitor the patient closely off antibiotic therapy Time with Patient: Less than 30
--- NOTE | 2022-01-30 14:15 | P.PN ---
Subjective Progress Note Date: 01/30/22 This is a 76-year-old female patient was known to her service from before with a past medical history significant for lung cancer with metastasis to the bone documented on biopsy was performed recently as well as history of paroxysmal atrial fibrillation. She was recently discharged from the hospital after she was admitted with atrial fibrillation with rapid ventricular response as a new diagnosis and she was discharged on oral anticoagulation with Eliquis. During her hospital stay she underwent echocardiogram which revealed preserved LV systolic function and no significant valvular abnormalities. She presented this admission with change in mental status as well as evidence of focal neurologic f inding with left-sided weakness, slurred speech, confusion and facial droop. Computed tomography scan and MRI both confirmed large area of infarct. Echocardiogram with Doppler study repeated this admission showed a normal LV systolic function with no evidence of ASD, mild to moderate MR and moderate aortic regurgitation. She's been having paroxysms of A. fib with RVR. She is currently on dual antiplatelet therapy as neurology's recommendation was to hold off on anticoagulation for 5-7 days. She is currently on oral amiodarone. Upon examination the patient seems somewhat confused. She does not believe she had a stroke and states it is a rumor. She continues to have left-sided weakness but seems to be neglecting that side and says she has no issues with movement. 01/28/2022 Upon examination She continues to have left-sided neglect with left-sided weakness facial droop. She seems much more aware today and is able to verbalize that she did in fact have a stroke. She is anticipating being discharged to rehab. She is maintaining sinus mechanism continues to have brief episodes of PAF. Currently on amiodarone 200 mg by mouth twice a day, aspirin, Brilinta, and metoprolol 50 mg by mouth twice a day. 01/29/2022 The patient was seen and examined sitting up in a chair. She continues to have left-sided neglect and weakness. She is anticipating being discharged to rehab. Awaiting neurology recommendations in regards to anticoagulation. She is maintaining sinus mechanism at this time. 01/30/2022 The patient was seen and examined resting comfortably in bed with her daughter at the bedside. She is relatively stable at this time. She was seen by neurology yesterday ordered computed tomography scan of the brain and recommended if no hemorrhage was noted to resume anticoagulation. Computed tomography scan showed continued evolution of right MCA territory infarct, no evidence for intracranial hemorrhage. Objective - Vital Signs Vital signs: Vital Signs Temp 98.2 F 01/30/22 11:15 Pulse 54 L 01/30/22 11:15 Resp 17 01/30/22 11:15 BP 114/70 01/30/22 11:15 Pulse Ox 93 L 01/30/22 11:15 FiO2 Intake & Output 01/29/22 01/30/22 01/30/22 18:59 06:59 18:59 Intake Total 336 118 Output Total 400 Balance 336 -400 118 Weight 83 kg Intake: Oral 336 118 Output: Urine 400 Other: Voiding Method Indwelling Catheter Indwelling Catheter Indwelling Catheter # Bowel Movements 1 - Exam PHYSICAL EXAMINATION: HEENT: Head is atraumatic, normocephalic. Pupils equal, round. Neck is supple. There is no elevated jugular venous pressure. HEART EXAMINATION: Heart sounds regular, S1 and S2 normal. No murmur or gallop heard. . CHEST EXAMINATION: Lungs are clear to auscultation and precussion. No chest wall tenderness is noted on palpation or with deep breathing. ABDOMEN: Soft, nontender. Bowel sounds are heard. No organomegaly noted. EXTREMITIES: 2+ peripheral pulses with no evidence of peripheral edema and no calf tenderness noted. NEUROLOGIC patient is awake, alert and oriented x3. Continues to have left- sided weakness, facial droop and left-sided neglect. . - Labs CBC & Chem 7: 01/30/22 08:01 01/30/22 08:01 Labs: Abnormal Lab Results - Last 24 Hours (Table) 01/30/22 01/30/22 Range/Units 08:01 08:01 RBC 3.57 L (3.80-5.40) m/uL Hgb 9.9 L (11.4-16.0) gm/dL Hct 32.1 L (34.0-46.0) % MCHC 30.8 L (31.0-37.0) g/dL Lymphocytes # 0.4 L (1.0-4.8) k/uL Chloride 110 H (98-107) mmol/L Creatinine 0.49 L (0.52-1.04) mg/dL Calcium 7.8 L (8.4-10.2) mg/dL AST 54 H (14-36) U/L ALT 47 H (4-34) U/L Total Protein 5.3 L (6.3-8.2) g/dL Albumin 2.6 L (3.5-5.0) g/dL Microbiology - Last 24 Hours (Table) 01/23/22 17:53 Blood Culture - Final Blood No Growth after 144 hours Assessment and Plan Assessment: #1 change in mental status #2 stroke in the distribution of the right middle cerebral artery #3 paroxysmal atrial fibrillation #4 hypertension #5 lung cancer with metastasis to bone Plan: From cardiology's perspective resume anticoagulation but switch to Xarelto. Stop aspirin and Brilinta. Continue current dose of amiodarone and metoprolol. At this time we'll follow the patient on as-needed basis. Please do not hesitate to contact us with questions. CHEMICAL RECOVERY OPERATOR note has been reviewed, I agree with a documented findings and plan of care. Patient was seen and examined.
--- NOTE | 2022-01-30 15:06 | P.PN ---
Subjective Progress Note Date: 01/30/22 Gracie Ybarra, is a 76-year-old female who presented to [facility] emergency room with a chief complaint of confusion weakness decreased responsiveness and left facial drooping. Patient was recently admitted to [facility] with low back pain with evidence of metastatic dise ase to the bone biopsy was done and revealed evidence of primary pulmonary cancer with metastatic disease she received radiation therapy and was discharged home on 01/22/2022 patient also has known history of atrial fibrillation maintained on Eliquis. She was evaluated in the emergency room vital examination on presentation revealed a temperature of 100.1 pulse 140 respiration 18 and blood pressure 145/59 pulse ox 93% on room air Laboratory data revealed a white blood count of 9.3 hemoglobin 10.7 platelet count 205 troponin 0.665 Testing in the emergency room revealed computed tomography scan of the brain revealed hypodensity in the right temporal lobe that could be an acute right middle cerebral artery infarct. 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 Patient was admitted to intensive care unit, neurology consultation was requested. Consultation was also placed for cardiology and oncology for follow-up. On 01/24/2022 patient is alert still with notable left facial droop. Per nursing staff plans for MRI today per neurology services. Infectious disease oncology and oncology service is consulted. Cardiology services also following. Current vital signs temp 99.1, heart rate 68, respiratory rate 14, blood pressure 130/60., Oxygen saturation 96% on 2 L On 01/25/2022 patient was seen and examined in the ICU she is alert and oriented 2 in no apparent distress, she is answering questions appropriately, she still has right sided gaze, and has severe left upper extremity weakness and moderate left lower extremity weakness, she is denying any pain or discomfort at this time, MRI done on 01/24/2022 revealed large region of acute/subacute ischemia in the right MCA distribution, embolic source is suggested, vital exam at this time reveals a temperature of 97.7 pulse 68 respiration 16 blood pressure 136/60 pulse ox 98% on 3 L nasal cannula 01/26/2022 patient has been moved out of the intensive care unit currently on selective care. Patient is alert and oriented 3. Patient's mentation has improved. Patient remains on cefepime. Cardiology, neurology, infectious disease and oncology services are following. Current vital signs temp 98.4, heart rate 72, respiratory rate 18, blood pressure 137/73 patient satting 97% on 2 L. Patient denies chest pain or shortness breath. Patient nausea vomiting or diarrhea patient denies any urinary burning or frequency On 01/27/2022 patient was seen and examined on the telemetry floor she is alert and oriented 3 in no apparent distress, there is no fever or chills no headache or dizziness no chest pain no shortness of breath no cough no nausea or vomiting no abdominal pain no diarrhea and no urinary symptoms her temperature is 90.7 pulse 124 respiration 14 blood pressure 152/62 pulse ox 95% on 2 L nasal cannula her white blood count is 12.4 hemoglobin 10.4 platelet count 217 BUN 14 creatinine 0.5 at this time we are awaiting neurology recommendation in that regard to restarting Eliquiss continue was physical therapy and occupational therapy patient will need to go to a rehab after this admission. On 01/28/2022 patient was seen and examined on the telemetry floor she is alert and oriented 3 in no apparent distress, she is still complaining of low back pain otherwise she denies any complaints there is no fever or chills, no headache or dizziness no chest pain no shortness of breath no cough no nausea or vomiting no abdominal pain no diarrhea and no urinary symptoms On 01/29/2022 patient is alert and oriented 3. Per neurology services will order repeat computed tomography scan this before resuming eliquis which will likely be held per protocol for 7 days after ischemic stroke. Patient denies chest pain or shortness breath. Patient denies nausea vomiting or diarrhea. Patient denies any urinary burning or frequency. On 04/02/2021 patient was seen and examined on the telemetry floor she is alert and oriented 3 in no apparent distress, there is no fever or chills no headache or dizziness no chest pain no shortness of breath no cough no nausea or vomiting no abdominal pain no diarrhea and no urinary symptoms. Patient still has severe generalized weakness, and severe weakness involving the left side of her body mostly on the left upper extremity, she will be transferred to rehab when cleared by cardiology and neurology, today patient underwent a computed tomography scan of the brain which was negative for any evidence of intracranial bleeding, cardiology and neurology are managing anticoagulation and antiplatelets medications. Objective - Vital Signs Vital signs: Vital Signs Temp 98.2 F 01/30/22 11:15 Pulse 54 L 01/30/22 11:15 Resp 17 01/30/22 11:15 BP 114/70 01/30/22 11:15 Pulse Ox 93 L 01/30/22 11:15 FiO2 Intake & Output 01/29/22 01/30/22 01/30/22 18:59 06:59 18:59 Intake Total 336 118 Output Total 400 Balance 336 -400 118 Weight 83 kg Intake: Oral 336 118 Output: Urine 400 Other: Voiding Method Indwelling Catheter Indwelling Catheter Indwelling Catheter # Bowel Movements 1 - Exam In general patient is alert and oriented, she has left facial drooping and right sided gaze HEENT head normocephalic and atraumatic Neck is supple no JVD no goiter no lymphadenopathy no carotid bruit Chest examination is clear to auscultation no crackles no wheezing Cardiac exam reveals regular heart sounds S1 and S2 no gallops no murmurs Abdomen is soft nontender no organomegaly with normal bowel sounds Extremity exam reveals no edema no cyanosis or clubbing Neurological examination reveals mental status patient is alert and oriented speech is fluent, there is left facial drooping and right sided gaze, motor exam reveals significant weakness on the left upper extremity which is at 1 out of 5, and weakness in the left lower extremity which is at 2 out of 5, there is some sensory deficit on the left side although unable to assess properly due to patient cooperation, reflexes are 1+ bilaterally and plantars are equivocal. - Labs CBC & Chem 7: 01/30/22 08:01 01/30/22 08:01 Labs: Abnormal Lab Results - Last 24 Hours (Table) 01/30/22 01/30/22 Range/Units 08:01 08:01 RBC 3.57 L (3.80-5.40) m/uL Hgb 9.9 L (11.4-16.0) gm/dL Hct 32.1 L (34.0-46.0) % MCHC 30.8 L (31.0-37.0) g/dL Lymphocytes # 0.4 L (1.0-4.8) k/uL Chloride 110 H (98-107) mmol/L Creatinine 0.49 L (0.52-1.04) mg/dL Calcium 7.8 L (8.4-10.2) mg/dL AST 54 H (14-36) U/L ALT 47 H (4-34) U/L Total Protein 5.3 L (6.3-8.2) g/dL Albumin 2.6 L (3.5-5.0) g/dL Microbiology - Last 24 Hours (Table) 01/23/22 17:53 Blood Culture - Final Blood No Growth after 144 hours Assessment and Plan Plan: Acute ischemic stroke, right middle cerebral artery distribution Underlying history of atrial fibrillation Underlying history of lung cancer with metastatic bone disease Underlying history of hypertension Underlying history of hyperlipidemia Underlying history of COPD Underlying history of gastroesophageal reflux disease At this time patient is admitted to ICU She was evaluated by neurology and was started on Brillinta Cardiology consultation requested in that regard to atrial fibrillation Oncology consultation requested in regard lung cancer with metastatic bone disease Pain is well controlled at this time per patient CODE STATUS is no code Prognosis is guarded will follow closely MRI today 01/24/2022 Repeat computed tomography scan to be ordered per neurology services
--- NOTE | 2022-01-30 16:16 | P.PN ---
Subjective Progress Note Date: 01/30/22 Principal diagnosis: Fever Patient is a 76-year-old female presenting to the hospital with mental status changes and weakness currently being worked up for CVA did have a positive UA and some right-sided infiltrate concerning for UTI plus minus pneumonia. On today's evaluation that is 01/30/2022, the patient remains to be afebrile, the patient is breathing comfortably on 2 L nasal cannula. The patient denies chest pain or shortness of breath , the patient did have occasional cough no abdominal pain or diarrhea Objective - Vital Signs Vital signs: Vital Signs Temp 98.1 F 01/30/22 08:37 Pulse 64 01/30/22 08:37 Resp 17 01/30/22 08:37 BP 155/82 01/30/22 08:37 Pulse Ox 96 01/30/22 09:48 FiO2 Intake & Output 01/29/22 01/30/22 01/30/22 18:59 06:59 18:59 Intake Total 336 118 Output Total 400 Balance 336 -400 118 Weight 83 kg Intake: Oral 336 118 Output: Urine 400 Other: Voiding Method Indwelling Catheter Indwelling Catheter # Bowel Movements 1 - Exam GENERAL DESCRIPTION: An elderly female lying in bed in no distress RESPIRATORY SYSTEM: Unlabored breathing , decreased breath sounds at bases HEART: S1 S2 regular rate and rhythm , ABDOMEN: Soft , no tenderness EXTREMITIES: No edema feet - Labs CBC & Chem 7: 01/30/22 08:01 01/30/22 08:01 Labs: Abnormal Lab Results - Last 24 Hours (Table) 01/30/22 01/30/22 Range/Units 08:01 08:01 RBC 3.57 L (3.80-5.40) m/uL Hgb 9.9 L (11.4-16.0) gm/dL Hct 32.1 L (34.0-46.0) % MCHC 30.8 L (31.0-37.0) g/dL Lymphocytes # 0.4 L (1.0-4.8) k/uL Chloride 110 H (98-107) mmol/L Creatinine 0.49 L (0.52-1.04) mg/dL Calcium 7.8 L (8.4-10.2) mg/dL AST 54 H (14-36) U/L ALT 47 H (4-34) U/L Total Protein 5.3 L (6.3-8.2) g/dL Albumin 2.6 L (3.5-5.0) g/dL Microbiology - Last 24 Hours (Table) 01/23/22 17:53 Blood Culture - Final Blood No Growth after 144 hours Assessment and Plan (1) Fever Current Visit: Yes Status: Acute Code(s): R50.9 - FEVER, UNSPECIFIED SNOMED Code(s): 336713730 Plan: 1patient with a low-grade fever and this patient presented to hospital with mental status changes weakness with concern for a CVA patient did have a positive UA could be likely contributing to her low-grade fever and also right lower lobe infiltrate concerning for possible pneumonia in this patient who do have a history of metastatic bronchogenic carcinoma 2- Blood cultures has been negative, urine culture has negative as well 3-patient has some clinical improvement and has received about a week of IV cefepime which should be more than enough for possible pneumonia, patient is currently being monitor closely off antibiotic therapy seems to be doing well Time with Patient: Less than 30
[2022-01-30] MEDS ORDERED: RIVAROXABAN 20 MG TAB PO SCH (17:30)
[2022-01-30] MEDS ORDERED: APIXABAN 5 MG TAB PO SCH (21:00)
[2022-01-30] MEDS: ATORVASTATIN 80 MG TAB PO SCH (22:21)
[2022-01-30] MEDS: HYDROmorphone 1 MG/ML 1 ML SYRINGE IVP PRN (22:26)
[2022-01-31] MEDS: HYDROcodone/APAP 10-325MG 1 EACH TAB PO PRN (05:50)
[2022-01-31] MEDS: PANTOPRAZOLE 40 MG TABLET PO SCH (05:50)
[2022-01-31] MEDS: SODIUM CHLORIDE 0.9% 1,000 ML IV SCH (06:32)
[2022-01-31 07:37] LABS: ALT 45 U/L (4-34); African American GFR (CKD) >90 (>60 ml/min/1.73 sqM); Albumin 2.6 g/dL (3.5-5.0); Albumin/Globulin Ratio 0.9; Anion Gap 5 mmol/L; Blood Urea Nitrogen 15 mg/dL (7-17); Calcium 7.9 mg/dL (8.4-10.2); Carbon Dioxide 24 mmol/L (22-30); Chloride 112 mmol/L (98-107); Globulin 2.8 g/dL; Glucose 98 mg/dL (74-99); Non-African American GFR(CKD) >90 (>60 ml/min/1.73 sqM); Sodium 141 mmol/L (137-145); Total Bilirubin 0.5 mg/dL (0.2-1.3); Total Protein 5.4 g/dL (6.3-8.2)
[2022-01-31 07:38] LABS: AST 53 U/L (14-36); Alkaline Phosphatase 110 U/L (38-126); Potassium 3.7 mmol/L (3.5-5.1)
[2022-01-31 07:47] VITALS: BP 115/67; PULSE 58; RESP 17; TEMP 98.1
[2022-01-31 09:45] LABS: Basophils # (A) 0.05 X 10*3/uL (0.00-0.10); Basophils % (A) 0.5 %; Eosinophils # (A) 0.38 X 10*3/uL (0.04-0.35); Eosinophils % (A) 4.2 %; HGB 9.4 g/dL (12.0-15.0); Immature Grans, Automated 0.8 %; Lymphocytes # (A) 0.54 X 10*3/uL (0.90-5.00); Lymphocytes % (A) 5.9 %; MCH 27.1 pg (27.0-32.0); MCHC 30.3 g/dL (32.0-37.0); MCV 89.3 fL (80.0-97.0); Mean Platelet Volume 10.8 fL (9.5-12.2); Monocytes # (A) 0.81 X 10*3/uL (0.20-1.00); Monocytes % (A) 8.9 %; NRBC Per 100 WBC 0 /100 WBCS (0.0-0.0); Neutrophils # (A) 7.25 X 10*3/uL (1.80-7.70); Neutrophils % (A) 79.7 %; Platelet Count 137 X 10*3/uL (140-440); RBC 3.47 X 10*6/uL (4.10-5.20); RDW 13.9 % (11.5-14.5)
[2022-01-31] MEDS: SYMBICORT 160-4.5 MCG INHALER INHALATION SCH (09:51)
[2022-01-31] MEDS: amLODIPine 5 MG TAB PO SCH (10:27)
[2022-01-31] MEDS: METOPROLOL TARTRATE 50 MG TAB PO SCH (10:27)
[2022-01-31] MEDS: SENNOSIDES-DOCUSATE SODIUM 1 EACH TAB PO SCH (10:27)
[2022-01-31] MEDS: AMIODARONE 200 MG TAB PO SCH (10:28)
[2022-01-31] MEDS: LIDOCAINE 5% PATCH TOPICAL SCH (10:28)
--- NOTE | 2022-01-31 11:12 | P.DS ---
Providers Date of admission: 01/23/22 06:47 Expected date of discharge: 01/31/22 Attending physician: Sheila Abreu Consults: 01/23/22 06:47 Consult Physician Routine Consulting Provider: Kevyn Akers Consult Reason/Comments: cva Do you want consulting provider notified?: Yes 01/23/22 09:41 Consult Physician Urgent Consulting Provider: Nikita Davey Consult Reason/Comments: fever Do you want consulting provider notified?: Yes 01/23/22 10:13 Consult Physician Routine Consulting Provider: Loli Timmons Consult Reason/Comments: atrial filutter and on eliquis and failed. new stroke Do you want consulting provider notified?: Yes 01/23/22 11:57 Consult Physician Urgent Consulting Provider: Karo Mantilla Consult Reason/Comments: bronchogenic carcinoma with skeletal metastasis Do you want consulting provider notified?: Yes [facility] Discharge diagnosis Acute ischemic stroke, right middle cerebral artery distribution Underlying history of atrial fibrillation Underlying history of lung cancer with metastatic bone disease Underlying history of hypertension Underlying history of hyperlipidemia Underlying history of COPD Underlying history of gastroesophageal reflux disease Hospital course Gracie Ybarra, is a 76-year-old female who presented to [facility] emergency room with a chief complaint of confusion weakness decreased responsiveness and left facial drooping. Patient was recently admitted to [facility] with low back pain with evidence of metastatic disease to the bone biopsy was done and revealed evidence of primary pulmonary cancer with metastatic disease she received radiation therapy and was discharged home on 01/22/2022 patient also has known history of atrial fibrillation maintained on Eliquis. She was evaluated in the emergency room vital examination on presentation revealed a temperature of 100.1 pulse 140 respiration 18 and blood pressure 145/59 pulse ox 93% on room air Laboratory data revealed a white blood count of 9.3 hemoglobin 10.7 platelet count 205 troponin 0.665 Testing in the emergency room revealed computed tomography scan of the brain revealed hypodensity in the right temporal lobe that could be an acute right middle cerebral artery infarct. 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 Patient was admitted to intensive care unit, neurology consultation was requested. Consultation was also placed for cardiology and oncology for follow-up. On 01/24/2022 patient is alert still with notable left facial droop. Per nursing staff plans for MRI today per neurology services. Infectious disease oncology and oncology service is consulted. Cardiology services also following. Current vital signs temp 99.1, heart rate 68, respiratory rate 14, blood pressure 130/60., Oxygen saturation 96% on 2 L On 01/25/2022 patient was seen and examined in the ICU she is alert and oriented 2 in no apparent distress, she is answering questions appropriately, she still has right sided gaze, and has severe left upper extremity weakness and moderate left lower extremity weakness, she is denying any pain or discomfort at this time, MRI done on 01/24/2022 revealed large region of acute/subacute ischemia in the right MCA distribution, embolic source is suggested, vital exam at this time reveals a temperature of 97.7 pulse 68 respiration 16 blood pressure 136/60 pulse ox 98% on 3 L nasal cannula 01/26/2022 patient has been moved out of the intensive care unit currently on selective care. Patient is alert and oriented 3. Patient's mentation has improved. Patient remains on cefepime. Cardiology, neurology, infectious disease and oncology services are following. Current vital signs temp 98.4, heart rate 72, respiratory rate 18, blood pressure 137/73 patient satting 97% on 2 L. Patient denies chest pain or shortness breath. Patient nausea vomiting or diarrhea patient denies any urinary burning or frequency On 01/27/2022 patient was seen and examined on the telemetry floor she is alert and oriented 3 in no apparent distress, there is no fever or chills no headache or dizziness no chest pain no shortness of breath no cough no nausea or vomiting no abdominal pain no diarrhea and no urinary symptoms her temperature is 90.7 pulse 124 respiration 14 blood pressure 152/62 pulse ox 95% on 2 L nasal cannula her white blood count is 12.4 hemoglobin 10.4 platelet count 217 BUN 14 creatinine 0.5 at this time we are awaiting neurology recommendation in that regard to restarting Eliquiss karo was physical therapy and occupational therapy patient will need to go to a rehab after this admission. On 01/28/2022 patient was seen and examined on the telemetry floor she is alert and oriented 3 in no apparent distress, she is still complaining of low back pain otherwise she denies any complaints there is no fever or chills, no heada klaudia or dizziness no chest pain no shortness of breath no cough no nausea or vomiting no abdominal pain no diarrhea and no urinary symptoms On 01/29/2022 patient is alert and oriented 3. Per neurology services will order repeat computed tomography scan this before resuming eliquis which will likely be held per protocol for 7 days after ischemic stroke. Patient denies chest pain or shortness breath. Patient denies nausea vomiting or diarrhea. Patient denies any urinary burning or frequency. On 04/02/2021 patient was seen and examined on the telemetry floor she is alert and oriented 3 in no apparent distress, there is no fever or chills no headache or dizziness no chest pain no shortness of breath no cough no nausea or vomiting no abdominal pain no diarrhea and no urinary symptoms. Patient still has severe generalized weakness, and severe weakness involving the left side of her body mostly on the left upper extremity, she will be transferred to rehab when cleared by cardiology and neurology, today patient underwent a computed tomography scan of the brain which was negative for any evidence of intracranial bleeding, cardiology and neurology are managing anticoagulation and ant iplatelets medications. On 01/31/2022 patient is alert and oriented 3. Patient has been cleared by cardiology services. Cleared to resume and fibrillation per neurology services. Zaroxolyn was started per cardiology. Patient will be DC'd ECF facility on Xarelto and pain medication. Patient to follow-up with PCP and consulting providers. Patient denies chest pain or shortness breath. Patient denies nausea vomiting or diarrhea. Patient denies any urinary burning or frequency Patient Condition at Discharge: Stable Plan - Discharge Summary Discharge Rx Participant: No New Discharge Prescriptions: New Atorvastatin [Lipitor] 80 mg PO HS tab Rivaroxaban [Xarelto] 20 mg PO W/SUPPER tab Continue Metoprolol Tartrate [Lopressor] 50 mg PO BID #60 tab polyethylene glycoL 3350 [Miralax] 17 gm PO BID packet fentaNYL 12MCG/HR PATCH [Duragesic 12MCG/HR] 1 patch TRANSDERM Q72H 3 Days #1 patch ALPRAZolam [Xanax] 0.25 mg PO QID PRN 3 Days #12 tab PRN Reason: Anxiety amLODIPine [Norvasc] 5 mg PO DAILY Budesonide-Formot 160-4.5 Mcg [Symbicort 160-4.5 Mcg Inhaler] 2 puff INHALATION RT-BID each Lidocaine 5% Patch [Lidoderm 5% Patch] 1 patch TOPICAL DAILY patch Magnesium Hydroxide [Milk of Magnesia Concentrate] 2,400 mg PO DAILY PRN ml PRN Reason: Constipation Pantoprazole [Protonix] 40 mg PO AC-BRKFST tab Sennosides-Docusate Sodium [Senokot-S] 2 each PO BID tab Amiodarone [Cordarone] See Taper PO DIRECTED HYDROcodone/APAP 10-325MG [Coyote 10-325] 1 each PO Q4HR PRN 3 Days #18 tab PRN Reason: Mild Breakthrough Pain (1-3) Discontinued Apixaban [Eliquis] 5 mg PO BID #60 tab Discharge Medication List amLODIPine [Norvasc] 5 mg PO DAILY 06/27/20 [History] Budesonide-Formot 160-4.5 Mcg [Symbicort 160-4.5 Mcg Inhaler] 2 puff INHALATION RT-BID each 12/31/21 [Rx] Metoprolol Tartrate [Lopressor] 50 mg PO BID #60 tab 01/20/22 [Rx] Lidocaine 5% Patch [Lidoderm 5% Patch] 1 patch TOPICAL DAILY patch 01/22/22 [Rx] Magnesium Hydroxide [Milk of Magnesia Concentrate] 2,400 mg PO DAILY PRN ml 01/22/22 [Rx] Pantoprazole [Protonix] 40 mg PO AC-BRKFST tab 01/22/22 [Rx] Sennosides-Docusate Sodium [Senokot-S] 2 each PO BID tab 01/22/22 [Rx] polyethylene glycoL 3350 [Miralax] 17 gm PO BID packet 01/22/22 [Rx] Amiodarone [Cordarone] See Taper PO DIRECTED 01/23/22 [History] ALPRAZolam [Xanax] 0.25 mg PO QID PRN 3 Days #12 tab 01/31/22 [Rx] Atorvastatin [Lipitor] 80 mg PO HS tab 01/31/22 [Rx] HYDROcodone/APAP 10-325MG [Coyote 10-325] 1 each PO Q4HR PRN 3 Days #18 tab 01/31/22 [Rx] Rivaroxaban [Xarelto] 20 mg PO W/SUPPER tab 01/31/22 [Rx] fentaNYL 12MCG/HR PATCH [Duragesic 12MCG/HR] 1 patch TRANSDERM Q72H 3 Days #1 patch 01/31/22 [Rx] Follow up Appointment(s)/Referral(s): Karo Mantilla MD [STAFF PHYSICIAN] - 02/04/22 10:00 am Sheila Abreu MD [Primary Care Provider] - 1-2 days Patient Instructions/Handouts: Ischemic Stroke (GEN)
--- NOTE | 2022-01-31 11:19 | P.PN ---
Subjective Progress Note Date: 01/30/22 Patient was seen for a follow-up. Patient was initially seen by Dr. Kevyn Akers. Please refer to his note for details. Patient is a 76-year-old female presented with acute stroke. Patient was not a candidate for IV TPA since she was outside the window. Patient has evidence of bilateral CVA, right hemispheric region more than left. Patient has right MCA thrombus at the anterior sylvian fissure and no intervention, due to advanced bronchogenic carcinoma with skeletal metastases and received radiation. Patient has atrial fibrillation, but held IV heparin or Eliquis because of large stroke. Dr. Landaverde recommended RONAK. Patient was placed on aspirin and Brilinta. Patient is laying comfortably in the bed. Patient is much more alert and awake. Denies headache, no dizziness. Objective - Vital Signs Vital signs: Vital Signs Temp 98.2 F 01/30/22 16:00 Pulse 61 01/30/22 16:00 Resp 19 01/30/22 16:00 BP 143/63 01/30/22 16:00 Pulse Ox 97 01/30/22 16:00 FiO2 Intake & Output 01/29/22 01/30/22 01/30/22 18:59 06:59 18:59 Intake Total 336 236 Output Total 400 Balance 336 -400 236 Weight 83 kg Intake: Oral 336 236 Output: Urine 400 Other: Voiding Method Indwelling Catheter Indwelling Catheter Indwelling Catheter # Bowel Movements 1 - Exam Patient is much more awake today. She has right sided preference. Patient has left visual neglect. Patient knows her name, Gracie Ybarra. She states it is December 2021. Speech and language functions appears normal. Patient can name and repeat very well. Patient has left facial weakness. Patient has complete dense left homonymous hemianopia. Patient is left hemiparetic, but improved as compared to yesterday. Strength is (right/left) deltoid 5/4, biceps 5/4+5-, triceps 5/5, die maintenance technician 5/5-. Hip flexion 4+/4+, ankle dorsiflexion 5/5-. Patient has Babinski on the left. Sensory for touch is equal on the face, in the legs, whereas sensations for touch is decreased in the left arm as compared to the right. - Labs CBC & Chem 7: 01/31/22 06:10 01/31/22 06:10 Labs: Abnormal Lab Results - Last 24 Hours (Table) 01/30/22 01/30/22 Range/Units 08:01 08:01 RBC 3.57 L (3.80-5.40) m/uL Hgb 9.9 L (11.4-16.0) gm/dL Hct 32.1 L (34.0-46.0) % MCHC 30.8 L (31.0-37.0) g/dL Lymphocytes # 0.4 L (1.0-4.8) k/uL Chloride 110 H (98-107) mmol/L Creatinine 0.49 L (0.52-1.04) mg/dL Calcium 7.8 L (8.4-10.2) mg/dL AST 54 H (14-36) U/L ALT 47 H (4-34) U/L Total Protein 5.3 L (6.3-8.2) g/dL Albumin 2.6 L (3.5-5.0) g/dL Microbiology - Last 24 Hours (Table) 01/23/22 17:53 Blood Culture - Final Blood No Growth after 144 hours Assessment and Plan Assessment: -Acute/subacute ischemia involving a large region of the right MCA distribution with additional foci of acute subacute ischemia involving bilateral frontal, parietal and occipital with additional region and left cerebellar hemisphere. Due to multiple vascular territories involved, embolic source is suggested. Clinically: Left facial weakness, gaze deviation left hemiparesis is due to likely acute ischemic stroke. -Right MCA thrombus at anterior sylvian fissure per CTA -History of advanced bronchogenic carcinoma with skeletal metastasis and biopsy consistent with metastatic pulmonary adenocarcinoma post radiation therapy -Encephalopathy due to acute ischemic stroke and likely underlying UTI and possible aspiration pneumonia -Atrial flutter on eliquis, currently on hold because of large stroke. -Fever but no leukocytosis -Elevated troponin -Hyperkalemia -Former tobacco use Plan: 1. Repeat CT head performed 01/29/2022 revealed continued evolution of right MCA territory infarct. No evidence for intracranial hemorrhage. I personally reviewed CT head, agree with the findings. Patient to be started on Xarelto instead of Eliquis. 2. Discontinue Aspirin 81 mg and Brilinta 90 mg 3. Continue stroke workup with speech therapy occupational therapy and physical therapy evaluations 4. 2-D echo revealed normal left ventricular systolic function with EF 55%. Mild to moderate mitral regurgitation. Aortic sclerosis with moderate aortic insufficiency. Left atrium moderately increased volume. No shunt. 5. Telemetry monitoring showing atrial fibrillation with rate controlled between 50 and 70. 6. Neurologically clear for transfer to rehab.
--- NOTE | 2022-01-31 12:18 | P.PN ---
Subjective Progress Note Date: 01/31/22 Principal diagnosis: Fever Patient is a 76-year-old female presenting to the hospital with mental status changes and weakness currently being worked up for CVA did have a positive UA and some right-sided infiltrate concerning for UTI plus minus pneumonia. On today's evaluation that is 01/31/2022, the patient continues to be afebrile, the patient is breathing comfortably on room air this morning, The patient denies chest pain or shortness of breath , the patient did have occasional cough no abdominal pain or diarrhea, overall feeling better Objective - Vital Signs Vital signs: Vital Signs Temp 98.1 F 01/31/22 07:46 Pulse 58 L 01/31/22 07:46 Resp 17 01/31/22 07:46 BP 115/67 01/31/22 07:46 Pulse Ox 96 01/31/22 07:46 FiO2 Intake & Output 01/30/22 01/31/22 01/31/22 18:59 06:59 18:59 Intake Total 354 Output Total 200 675 Balance 154 -675 Intake: Oral 354 Output: Urine 200 675 Other: Voiding Method Indwelling Catheter Indwelling Catheter # Bowel Movements 1 - Exam GENERAL DESCRIPTION: An elderly female lying in bed in no distress RESPIRATORY SYSTEM: Unlabored breathing , decreased breath sounds at bases HEART: S1 S2 regular rate and rhythm , ABDOMEN: Soft , no tenderness EXTREMITIES: No edema feet - Labs CBC & Chem 7: 01/31/22 06:10 01/31/22 06:10 Labs: Abnormal Lab Results - Last 24 Hours (Table) 01/31/22 01/31/22 Range/Units 06:10 06:10 RBC 3.47 L (4.10-5.20) X 10*6/uL Hgb 9.4 L (12.0-15.0) g/dL Hct 31.0 L (37.2-46.3) % MCHC 30.3 L (32.0-37.0) g/dL Plt Count 137 L (140-440) X 10*3/uL Immature Gran # 0.07 H (0.00-0.04) X 10*3/uL Lymphocytes # 0.54 L (0.90-5.00) X 10*3/uL Eosinophils # 0.38 H (0.04-0.35) X 10*3/uL Chloride 112 H (98-107) mmol/L Creatinine 0.49 L (0.52-1.04) mg/dL Calcium 7.9 L (8.4-10.2) mg/dL AST 53 H (14-36) U/L ALT 45 H (4-34) U/L Total Protein 5.4 L (6.3-8.2) g/dL Albumin 2.6 L (3.5-5.0) g/dL Assessment and Plan (1) Fever Current Visit: Yes Status: Acute Code(s): R50.9 - FEVER, UNSPECIFIED SNOMED Code(s): 467274988 Plan: 1patient with a low-grade fever and this patient presented to hospital with mental status changes weakness with concern for a CVA patient did have a positive UA could be likely contributing to her low-grade fever and also right lower lobe infiltrate concerning for possible pneumonia in this patient who do have a history of metastatic bronchogenic carcinoma 2- Blood cultures has been negative, urine culture has negative as well 3-patient continued to show clinical improvement and remains to be afebrile white count has been normal patient pneumonia has been adequately treated, there is no need for antibiotics on discharge discussed with the SUGGESTION CLERK for admitting team Time with Patient: Less than 30
== END 2022-01-31 13:11 | DRG 64 ==
LOC: EC 04:31 → 3SCARD 06:47 → 2SICU 12:31 → 3SCARD 01-25 20:57 → 4SSUR 01-30 19:06
PROVIDERS: ADMIT Internal Medicine; ATTEND Internal Medicine
DX: I63.311 Cerebral infarction due to thrombosis of right middle cerebral artery (principal); G93.41 Metabolic encephalopathy; J69.0 Pneumonitis due to inhalation of food and vomit; C79.51 Secondary malignant neoplasm of bone; I48.92 Unspecified atrial flutter; G81.94 Hemiplegia, unspecified affecting left nondominant side; R41.4 Neurologic neglect syndrome; C34.11 Malignant neoplasm of upper lobe, right bronchus or lung; J98.11 Atelectasis; N39.0 Urinary tract infection, site not specified; I27.20 Pulmonary hypertension, unspecified; I10 Essential (primary) hypertension; F10.10 Alcohol abuse, uncomplicated; I08.3 Combined rheumatic disorders of mitral, aortic and tricuspid valves; J44.9 Chronic obstructive pulmonary disease, unspecified; H53.462 Homonymous bilateral field defects, left side; I48.0 Paroxysmal atrial fibrillation; Z66 Do not resuscitate; E78.5 Hyperlipidemia, unspecified; R29.810 Facial weakness; R47.81 Slurred speech; K21.9 Gastro-esophageal reflux disease without esophagitis; H51.8 Other specified disorders of binocular movement; R00.0 Tachycardia, unspecified; R09.02 Hypoxemia; R00.1 Bradycardia, unspecified; R01.1 Cardiac murmur, unspecified; E87.5 Hyperkalemia; R77.8 Other specified abnormalities of plasma proteins; Z20.822 Contact with and (suspected) exposure to COVID-19; Z92.3 Personal history of irradiation; Z87.19 Personal history of other diseases of the digestive system; Z79.899 Other long term (current) drug therapy; Z79.01 Long term (current) use of anticoagulants; Z79.51 Long term (current) use of inhaled steroids; Z88.0 Allergy status to penicillin; Z88.5 Allergy status to narcotic agent; Z87.891 Personal history of nicotine dependence; Z98.84 Bariatric surgery status
CPT/HCPCS: 36415; 70450; 70496; 70498; 70553; 71045; 74230; 80053; 80061; 80320; 81001; 82140; 83605; 83735; 83880; 84100; 84145; 84484; 85025; 85610; 85730; 86140; 87040; 87086; 87636; 93005; 93306; 94640; 94760; 95816; 96361; 96374; 96375; 99291

== ENCOUNTER 2022-02-06 15:15 | Inpatient (IN) | payer MEDICARE, OTHER ==
--- NOTE | 2022-02-06 16:29 | CT ---
EXAMINATION TYPE: CT brain wo con DATE OF EXAM: 02/06/2022 HISTORY: weakness, multiple recent falls CT DLP: 1173.4 mGycm. Automated Exposure Control for Dose Reduction was Utilized. TECHNIQUE: CT scan of the head is performed without contrast. COMPARISON: CT brain January 29, 2022. FINDINGS: There is no acute intracranial hemorrhage or midline shift identified. There is moderate diffuse ventricular and sulcal prominence consistent with diffuse age-related cerebral atrophy. Ther e is [id number] low-attenuation in the periventricular white matter consistent with chronic sma ll vessel ischemic change. There is improved arguello-white matter differentiation in the right parietal region versus most recent CT suggesting reperfusion at this level. Nasal septum is redemonstrated dev iated to right of the midline. The globes are intact and the visualized sinuses are clear. IMPRESSION: No acute intracranial hemorrhage or midline shift. There is moderate diffuse age-relate d cerebral atrophy and mild to moderate chronic small vessel ischemic change redemonstrated. Improved perfusion right parietal lobe from most recent CT.
--- NOTE | 2022-02-06 17:28 | ED ---
Fall HPI - General Chief Complaint: Fall Stated Complaint: Fall Time Seen by Provider: 02/06/22 15:53 Source: EMS Mode of arrival: EMS - History of Present Illness Initial Comments: This 76-year-old female presents with complaint of a fall with head injury. This apparently occurred while standing. She states that she tripped over her feet and hit her forehead. She denies losing any consciousness. This occurred shortly prior to arrival. It occurred at the [facility]. She is on Eliquis for blood thinner for her atrial fibrillation. The [facility] center in for further evaluation in this regard. The daughter later does show up and states that she does not feel comfortable with patient going back to the [facility]. Per daughter, the patient is not being taken care of appropriately. She would like her admitted for further evaluation, treatment, case management evaluation and possible transfer to a different level of care. The patient apparently does have lung cancer with metastases to her bone. The patient did receive some radiation therapy to her spine at one point time but is not receiving any chemotherapy. Daughter relates that she has hallucinations at times and then times being lucid. Her cancer apparently has stage IV. They have contemplated hospice care as well. There is no known fever. She apparently recently may have had a urinary tract infection. The patient also was just hospitalized at our institution and discharged to the ECF about a week ago. At that time she suffered a massive stroke and has severe left-sided weakness and a left visual deficit. Patient denies any other injuries or areas of pain. No other complaints or modifying factors. - Related Data Home Medications Medication Instructions Recorded Confirmed amLODIPine [Norvasc] 5 mg PO DAILY 06/27/20 02/06/22 ALPRAZolam [Xanax] 0.25 mg PO Q6H PRN 02/06/22 02/06/22 Amiodarone [Cordarone] 100 mg PO DAILY 02/06/22 02/06/22 HYDROcodone/APAP 10-325MG [[place] 1 tab PO Q4H PRN 02/06/22 02/06/22 10-325] Omeprazole 40 mg PO DAILY 02/06/22 02/06/22 Sennosides-Docusate Sodium 2 tab PO BID 02/06/22 02/06/22 [Senokot-S] Previous Rx's Medication Instructions Recorded Budesonide-Formot 160-4.5 Mcg 2 puff INHALATION RT-BID each 12/31/21 [Symbicort 160-4.5 Mcg Inhaler] Metoprolol Tartrate [Lopressor] 50 mg PO BID #60 tab 01/20/22 Magnesium Hydroxide [Milk of 2,400 mg PO DAILY PRN ml 01/22/22 Magnesia Concentrate] polyethylene glycoL 3350 [Miralax] 17 gm PO BID packet 01/22/22 Atorvastatin [Lipitor] 80 mg PO HS tab 01/31/22 Rivaroxaban [Xarelto] 20 mg PO W/SUPPER tab 01/31/22 fentaNYL 12MCG/HR PATCH [Duragesic 1 patch TRANSDERM Q72H 3 Days #1 01/31/22 12MCG/HR] patch Allergies Allergy/AdvReac Type Severity Reaction Status Date / Time Penicillins Allergy Severe Anaphylaxis Verified 02/06/22 16:01 morphine Allergy Rash/Hives Verified 02/06/22 16:01 Review of Systems ROS Statement: Those systems with pertinent positive or pertinent negative responses have been documented in the HPI. ROS Other: All systems not noted in ROS Statement are negative. Past Medical History Past Medical History: Eye Disorder, Hypertension, Osteoarthritis (OA) Additional Past Medical History / Comment(s): Hx. of DIVERTICULITIS, LT EYE MAC. DEGEN. HTN resolved after surgery., dysphagia History of Any Multi-Drug Resistant Organisms: None Reported Past Surgical History: Bariatric Surgery, Cholecystectomy, Orthopedic Surgery, Tubal Ligation Additional Past Surgical History / Comment(s): RIGHT SHOULDER SX, COLONOSCOPY, EGD sleeve gastrectomy 02-01-18 Past Anesthesia/Blood Transfusion Reactions: No Reported Reaction Additional Past Anesthesia/Blood Transfusion Reaction / Comment(s): Pt states that in June [address] Mckeon attempted to perform an EGD with dilation, the procedure had to be cancelled because she experienced a BP "way over 200 when they put me under" Past Psychological History: No Psychological Hx Reported Smoking Status: Never smoker Past Alcohol Use History: Daily Past Drug Use History: None Reported - Past Family History Mother Family Medical History: CVA/TIA Father Family Medical History: Myocardial Infarction ([place]) General Exam - General Exam Comments Initial Comments: GENERAL: The patient is well nourished and well hydrated. VITAL SIGNS: Heart rate, blood pressure, respiratory rate reviewed as recorded in nurse's notes. EYES: Pupils are round and reactive. Extraocular movements are intact. No con junctival / lid redness or swelling. ENT: No external evidence of injury, swelling, or ecchymosis. Airway is patent. Throat is clear. NECK: Nontender. No swelling or evidence of injury. No subcutaneous emphysema. Trachea is midline. No thyroid mass. HEART: Regular rate and rhythm. Good peripheral pulses. LUNGS/CHEST: Breath sounds clear and equal bilaterally. No rales, rhonchi, or wheezes. No ecchymosis, subcutaneous emphysema, or tenderness. ABDOMEN: Abdomen soft without tenderness. No palpable masses or organomegaly. No peritoneal signs. No abdominal wall swelling or ecchymosis. EXTREMITIES: No extremity tenderness. Normal muscle tone and function. No thoracolumbar tenderness. NEUROLOGIC: Sensation is grossly intact. There is significant left-sided weakness noted. There is right eye gaze noted. SKIN: No abrasions or ecchymosis is noted. No induration or masses noted. PSYCHIATRIC: Alert and oriented. Appropriate behavior and judgment. Limitations: no limitations Course Vital Signs 02/06/22 15:16 Temperature 98 F Pulse Rate 61 Respiratory 20 Rate Blood Pressure 147/58 O2 Sat by Pulse 98 Oximetry Medical Decision Making - Medical Decision Making The patient was seen and examined the EKG shows a normal sinus rhythm at a rate of 62. There is no acute ST-T wave changes noted. There is a degree of artifact identified. The AK intervals 135, QRS duration is 85, and the QTC intervals 417. The patient has a computed tomography scan of the brain which does show improvement in the area of the old infarction. There is no acute process identified. There is no intracranial bleeding identified. Patient was going to be discharged home and the daughter shows up and voices her extreme concern about going back to the facility. Additional workup is then completed. The laboratory shows slight elevation of the white blood cell count. The urinalysis is pending catheterization. The chest x-ray shows evidence of right upper lobe infiltrate with possible mass. Patient is started on Rocephin and Zithromax for possible pneumonia. Mental status changes noted on recheck. It is felt as though she would benefit from admission to the hospital for further treatment. Case is discussed with Dr. Abreu who is agreeable with admission. It is recommended that case management discussed with daughter in regards to further living arrangements and possible hospice evaluation. Overall, it is felt as though she has a very poor long-term prognosis. - Lab Data Result diagrams: 02/06/22 21:03 02/06/22 21:03 Lab Results 02/06/22 02/06/22 02/06/22 Range/Units 21:03 21:03 21:03 WBC 11.0 H (3.8-10.6) k/uL RBC 4.09 (3.80-5.40) m/uL Hgb 11.3 L (11.4-16.0) gm/dL Hct 35.5 (34.0-46.0) % MCV 86.8 (80.0-100.0) fL MCH 27.6 (25.0-35.0) pg MCHC 31.8 (31.0-37.0) g/dL RDW 13.8 (11.5-15.5) % Plt Count 171 (150-450) k/uL MPV 8.5 Neutrophils % 88 % Lymphocytes % 5 % Monocytes % 4 % Eosinophils % 2 % Basophils % 0 % Neutrophils # 9.6 H (1.3-7.7) k/uL Lymphocytes # 0.6 L (1.0-4.8) k/uL Monocytes # 0.5 (0-1.0) k/uL Eosinophils # 0.2 (0-0.7) k/uL Basophils # 0.0 (0-0.2) k/uL Hypochromasia Slight PT 11.7 (9.0-12.0) sec INR 1.1 (<1.2) APTT 24.1 (22.0-30.0) sec Sodium 141 (137-145) mmol/L Potassium 3.4 L (3.5-5.1) mmol/L Chloride 103 (98-107) mmol/L Carbon Dioxide 33 H (22-30) mmol/L Anion Gap 5 mmol/L BUN 13 (7-17) mg/dL Creatinine 0.63 (0.52-1.04) mg/dL Est GFR (CKD-EPI)AfAm >90 (>60 ml/min/1.73 sqM) Est GFR (CKD-EPI)NonAf 86 (>60 ml/min/1.73 sqM) Glucose 99 (74-99) mg/dL Plasma Lactic Acid Ervin (0.7-2.0) mmol/L Calcium 8.5 (8.4-10.2) mg/dL Phosphorus 3.9 (2.5-4.5) mg/dL Magnesium 1.8 (1.6-2.3) mg/dL Total Bilirubin 0.9 (0.2-1.3) mg/dL AST 48 H (14-36) U/L ALT 37 H (4-34) U/L Alkaline Phosphatase 122 (38-126) U/L Troponin I (0.000-0.034) ng/mL Total Protein 6.7 (6.3-8.2) g/dL Albumin 3.5 (3.5-5.0) g/dL TSH 8.980 H (0.465-4.680) mIU/L 02/06/22 02/06/22 Range/Units 21:03 21:03 WBC (3.8-10.6) k/uL RBC (3.80-5.40) m/uL Hgb (11.4-16.0) gm/dL Hct (34.0-46.0) % MCV (80.0-100.0) fL MCH (25.0-35.0) pg MCHC (31.0-37.0) g/dL RDW (11.5-15.5) % Plt Count (150-450) k/uL MPV Neutrophils % % Lymphocytes % % Monocytes % % Eosinophils % % Basophils % % Neutrophils # (1.3-7.7) k/uL Lymphocytes # (1.0-4.8) k/uL Monocytes # (0-1.0) k/uL Eosinophils # (0-0.7) k/uL Basophils # (0-0.2) k/uL Hypochromasia PT (9.0-12.0) sec INR (<1.2) APTT (22.0-30.0) sec Sodium (137-145) mmol/L Potassium (3.5-5.1) mmol/L Chloride (98-107) mmol/L Carbon Dioxide (22-30) mmol/L Anion Gap mmol/L BUN (7-17) mg/dL Creatinine (0.52-1.04) mg/dL Est GFR (CKD-EPI)AfAm (>60 ml/min/1.73 sqM) Est GFR (CKD-EPI)NonAf (>60 ml/min/1.73 sqM) Glucose (74-99) mg/dL Plasma Lactic Acid Ervin 1.0 (0.7-2.0) mmol/L Calcium (8.4-10.2) mg/dL Phosphorus (2.5-4.5) mg/dL Magnesium (1.6-2.3) mg/dL Total Bilirubin (0.2-1.3) mg/dL AST (14-36) U/L ALT (4-34) U/L Alkaline Phosphatase (38-126) U/L Troponin I 0.018 (0.000-0.034) ng/mL Total Protein (6.3-8.2) g/dL Albumin (3.5-5.0) g/dL TSH (0.465-4.680) mIU/L Disposition Clinical Impression: Fall, Head injury, History of CVA (cerebrovascular accident), Paralysis due to acute stroke, Lung cancer metastatic to bone, Altered mental status, Leukocytosis Disposition: ADMITTED IP TO THIS HOSP Is patient prescribed a controlled substance at d/c from ED?: No Referrals: Sheila Abreu MD [Primary Care Provider] - 1-2 days Time of Disposition: 22:50 Decision Date: 02/06/22 Decision Time: 22:50
[2022-02-06] MEDS ORDERED: HYDROcodone/APAP 5-325MG 1 EACH TAB PO STA (18:13)
[2022-02-06] MEDS ORDERED: SODIUM CHLORIDE 0.9% 1,000 ML IV STA (18:13)
[2022-02-06] MEDS ORDERED: SODIUM CHLORIDE 0.9% 500 ML 500 ML IV STA (18:13)
--- NOTE | 2022-02-06 19:48 | XR ---
EXAMINATION TYPE: XR chest 2V DATE OF EXAM: 02/06/2022 COMPARISON: 01/23/2022 INDICATION: Weakness TECHNIQUE: Frontal and lateral views of the chest are obtained. FINDINGS: The heart size is normal. The pulmonary vasculature is normal. There is a moderate right pleural effusion. Some right upper lobe infiltrate is present. Pleural effu horace is worsening from comparison. IMPRESSION: 1. Increasing moderate size right pleural effusion. 2. Right upper lobe infiltrate. Underlying mass is not excluded. Follow-up is recommended
[2022-02-06 21:08] LABS: Basophils % (A) 0 %; Eosinophils # (A) 0.2 k/uL (0-0.7); Eosinophils % (A) 2 %; HCT 35.5 % (34.0-46.0); HGB 11.3 gm/dL (11.4-16.0); Hypochromasia Slight; Lymphocytes # (A) 0.6 k/uL (1.0-4.8); Lymphocytes % (A) 5 %; MCH 27.6 pg (25.0-35.0); MCHC 31.8 g/dL (31.0-37.0); MCV 86.8 fL (80.0-100.0); Mean Platelet Volume 8.5; Monocytes # (A) 0.5 k/uL (0-1.0); Monocytes % (A) 4 %; Neutrophils # (A) 9.6 k/uL (1.3-7.7); Neutrophils % (A) 88 %; Platelet Count 171 k/uL (150-450); RBC 4.09 m/uL (3.80-5.40); RDW 13.8 % (11.5-15.5)
[2022-02-06 21:19] LABS: ALT 37 U/L (4-34); AST 48 U/L (14-36); African American GFR (CKD) >90 (>60 ml/min/1.73 sqM); Albumin 3.5 g/dL (3.5-5.0); Alkaline Phosphatase 122 U/L (38-126); Anion Gap 5 mmol/L; Blood Urea Nitrogen 13 mg/dL (7-17); Calcium 8.5 mg/dL (8.4-10.2); Carbon Dioxide 33 mmol/L (22-30); Chloride 103 mmol/L (98-107); Glucose 99 mg/dL (74-99); Magnesium 1.8 mg/dL (1.6-2.3); Non-African American GFR(CKD) 86 (>60 ml/min/1.73 sqM); Phosphorus 3.9 mg/dL (2.5-4.5); Potassium 3.4 mmol/L (3.5-5.1); Sodium 141 mmol/L (137-145); Total Bilirubin 0.9 mg/dL (0.2-1.3); Total Protein 6.7 g/dL (6.3-8.2)
[2022-02-06 21:23] LABS: INR 1.1 (<1.2); Partial Thromboplastin Time 24.1 sec (22.0-30.0); Prothrombin Time 11.7 sec (9.0-12.0)
[2022-02-06] MEDS ORDERED: NALOXONE 0.4 MG/ML 1 ML VIAL IV PRN (22:52)
[2022-02-06] MEDS ORDERED: LORazepam 0.5 MG TAB PO PRN (22:52)
[2022-02-06] MEDS ORDERED: ACETAMINOPHEN TAB 325 MG TAB PO PRN (22:52)
[2022-02-06 22:58] LABS: Appearance,Urine Cloudy (Clear); Bacteria,Urine Many /hpf; Bilirubin,Urine Negative (Negative); Blood,Urine Large (Negative); Budding Yeast,Urine Occasional /hpf; Color,Urine Red; Glucose,Urine (UA) Negative (Negative); Ketones,Urine Negative (Negative); Leukocyte Esterase,Urine Moderate (Negative); Mucus,Urine Many /hpf; Nitrite,Urine Negative (Negative); Protein,Urine 2+ (Negative); RBC,Urine >182 /hpf (0-5); Specific Gravity,Urine 1.026 (1.001-1.035); Squamous Epithelial Cell,Urine 2 /hpf (0-4); Urobilinogen,Urine <2.0 mg/dL (<2.0); WBC,Urine 58 /hpf (0-5)
[2022-02-06] MEDS ORDERED: MAGNESIUM HYDROXIDE 2,400 MG/10 ML CUP PO PRN (22:59)
[2022-02-06] MEDS ORDERED: AZITHROMYCIN 500 MG in SODIUM CHLORIDE 0.9% 250 ML IVPB ONE (23:00)
[2022-02-07] MEDS: SYMBICORT 160-4.5 MCG INHALER INHALATION SCH ×2 (07:37→21:34)
[2022-02-07] MEDS: polyethylene glycoL 3350 17 GM POWD.PACK PO SCH ×2 (08:36→22:59)
[2022-02-07] MEDS: SENNOSIDES-DOCUSATE SODIUM 1 EACH TAB PO SCH ×2 (08:36→22:59)
[2022-02-07] MEDS: AMIODARONE 100 MG TAB PO SCH (08:36)
[2022-02-07] MEDS: amLODIPine 5 MG TAB PO SCH (08:36)
[2022-02-07] MEDS: PANTOPRAZOLE 40 MG TABLET PO SCH (08:36)
[2022-02-07] MEDS: METOPROLOL TARTRATE 50 MG TAB PO SCH ×2 (08:36→22:57)
--- NOTE | 2022-02-07 14:03 | P.HPIM ---
History of Present Illness H&P Date: 02/07/22 Chief Complaint: Fall, pneumonia This is a 76-year-old female patient who presented to ER with concerns of fall at [facility] facility. Patient was recently here and treated for CVA chest left left- sided weakness and deficits. Patient also recently diagnosed with lung cancer with metastatic disease to bone. Additional medical history includes hypertension, osteoporosis, diverticulitis and cholecystectomy Patient reports she is getting up to use bathroom by herself when she tripped and hit her head. Head CT was completed showing no acute intracranial hemorrhage or midline shift. There is moderate diffuse age-related cerebral atrophy and mild to moderate chronic small vessel ischemic change redemonstrated. Improved perfusion right parietal lobe from the most recent CT. Patient is maintained on xarelto for atrial fibrillation. chest xray completed showing Increasing moderate-sized right pleural effusion right upper lobe infiltrate. Underlying mass is not excluded follow-up is recommended. Patient also found to have urinary tract infection. Mild leukocytosis. TSH also noted to be elevated 8.980. Patient started on azithromycin and Rocephin. Pulmonary and oncology service is consulted. Dr. Toro will also be consulted for possible inpatient rehab admis horace. Upon exam patient is lying comfortably in bed. Patient denies any pain. Patient denies nausea or vomiting. Patient does report occasional shortness breath and cough. Patient denies chest pain. Patient reports she has been having some urinary frequency. Review of Systems Please refer to HPI otherwise unremarkable Past Medical History Past Medical History: Eye Disorder, Hypertension, Osteoarthritis (OA) Additional Past Medical History / Comment(s): Hx. of DIVERTICULITIS, LT EYE MAC. DEGEN. HTN resolved after surgery., dysphagia History of Any Multi-Drug Resistant Organisms: None Reported Past Surgical History: Bariatric Surgery, Cholecystectomy, Orthopedic Surgery, Tubal Ligation Additional Past Surgical History / Comment(s): RIGHT SHOULDER SX, COLONOSCOPY, EGD sleeve gastrectomy 02-01-18 Past Anesthesia/Blood Transfusion Reactions: No Reported Reaction Additional Past Anesthesia/Blood Transfusion Reaction / Comment(s): Pt states that in June [address] Mckeon attempted to perform an EGD with dilation, the procedure had to be cancelled because she experienced a BP "way over 200 when they put me under" Past Psychological History: No Psychological Hx Reported Smoking Status: Never smoker Past Alcohol Use History: Daily Past Drug Use History: None Reported - Past Family History Mother Family Medical History: CVA/TIA Father Family Medical History: Myocardial Infarction ([place]) Medications and Allergies Home Medications Medication Instructions Recorded Confirmed Type amLODIPine [Norvasc] 5 mg PO DAILY 06/27/20 02/06/22 History Budesonide-Formot 160-4.5 Mcg 2 puff INHALATION RT-BID each 12/31/21 02/06/22 Rx [Symbicort 160-4.5 Mcg Inhaler] Metoprolol Tartrate [Lopressor] 50 mg PO BID #60 tab 01/20/22 02/06/22 Rx Magnesium Hydroxide [Milk of 2,400 mg PO DAILY PRN ml 01/22/22 02/06/22 Rx Magnesia Concentrate] polyethylene glycoL 3350 [Miralax] 17 gm PO BID packet 01/22/22 02/06/22 Rx Atorvastatin [Lipitor] 80 mg PO HS tab 01/31/22 02/06/22 Rx Rivaroxaban [Xarelto] 20 mg PO W/SUPPER tab 01/31/22 02/06/22 Rx fentaNYL 12MCG/HR PATCH [Duragesic 1 patch TRANSDERM Q72H 3 Days #1 01/31/22 02/06/22 Rx 12MCG/HR] patch ALPRAZolam [Xanax] 0.25 mg PO Q6H PRN 02/06/22 02/06/22 History Amiodarone [Cordarone] 100 mg PO DAILY 02/06/22 02/06/22 History HYDROcodone/APAP 10-325MG [[place] 1 tab PO Q4H PRN 02/06/22 02/06/22 History 10-325] Omeprazole 40 mg PO DAILY 02/06/22 02/06/22 History Sennosides-Docusate Sodium 2 tab PO BID 02/06/22 02/06/22 History [Senokot-S] Allergies Allergy/AdvReac Type Severity Reaction Status Date / Time Penicillins Allergy Severe Anaphylaxis Verified 02/06/22 16:01 morphine Allergy Rash/Hives Verified 02/06/22 16:01 Physical Exam Vitals: Vital Signs Temp Pulse Resp BP Pulse Ox 02/07/22 13:01 98.7 F 62 16 136/61 100 02/07/22 08:03 98.7 F 118 H 19 153/101 97 02/07/22 00:12 71 16 129/65 98 02/06/22 23:04 68 15 133/77 99 02/06/22 15:16 98 F 61 20 147/58 98 Intake and Output 02/06/22 02/07/22 02/07/22 22:59 06:59 14:59 Other: Weight 72.575 kg Head normocephalic Neck supple Lungs diminished bilaterally Heart irregular rate known atrial fibrillation Abdomen is soft nontender nondistended positive bowel sounds no hepatosplenomegaly Extremities no edema Neuro alert and orientated to 3. Left-sided deficits noted on previous stroke Results CBC & Chem 7: 02/06/22 21:03 02/06/22 21:03 Labs: Abnormal Lab Results - Last 24 Hours (Table) 02/06/22 02/06/22 02/06/22 Range/Units 21:03 21:03 22:30 WBC 11.0 H (3.8-10.6) k/uL Hgb 11.3 L (11.4-16.0) gm/dL Neutrophils # 9.6 H (1.3-7.7) k/uL Lymphocytes # 0.6 L (1.0-4.8) k/uL Potassium 3.4 L (3.5-5.1) mmol/L Carbon Dioxide 33 H (22-30) mmol/L AST 48 H (14-36) U/L ALT 37 H (4-34) U/L TSH 8.980 H (0.465-4.680) mIU/L Urine Appearance Cloudy H (Clear) Urine Protein 2+ H (Negative) Urine Blood Large H (Negative) Ur Leukocyte Esterase Moderate H (Negative) Urine RBC >182 H (0-5) /hpf Urine WBC 58 H (0-5) /hpf Urine Bacteria Many H (None) /hpf Urine Mucus Many H (None) /hpf Urine Yeast (Budding) Occasional H (None) /hpf Assessment and Plan Assessment: 1. Recent fall. head CT completed 2. Right upper lobe Pneumonia 3. Urinary tract infection 4. Recent acute ischemic stroke right middle cerebral artery distribution 5. History of atrial fibrillation 6. Recent diagnosis of lung cancer with metastatic bone disease 7. History of essential hypertension 8. History of hyperlipidemia 9. History of COPD 10. History of GERD 11. Elevated TSH. TSH 8.980 patient started on 25 mics of Synthroid DVT prophylaxis Xarelto. GI prophylaxis Protonix Patient started on Zithromax and Rocephin Pulmonary and oncology service is consulted Urine culture and blood culture ordered Repeat labs ordered Dr. Toro consulted for possible inpatient rehab Dr. Acosta's group will be covering 02/08/2022 to 02/19/2022 Time with Patient: Greater than 30 (Greater than 60% of the total time spent in counseling and coordination of careGreater than 60% of the total time spent in counseling and coordination of care)
--- NOTE | 2022-02-07 16:09 | P.CONS ---
History of Present Illness - Reason for Consult Consult date: 02/07/22 Metastatic lung cancer, fall - History of Present Illness The patient is a 76-year-old white female, well known to our service, with a recent diagnosis of metastatic non-small cell carcinoma of the lung. Oncology history is as follows: - Initially seen in consult in Dec 31 for suspicious right upper lobe mass. The patient had been admitted with shortness of breath, and cough which had not responded to outpatient treatment for pneumonia, subsequent imaging confirmed presence of the mass. When she was stabilized, she had a bronchoscopy and was then discharged with plan for additional outpatient staging studies, including PET scan and brain MRI. Unfortunately, biopsy from the bronchoscopy came back nondiagnostic. PET scan was sched for 01/10/22 but, not done as the machine was down due to technical problems. Patient ended up being admitted 01/13 through 01/22, because of intractable back pain. She had a CTA showing increase in size of the right upper lobe mass as well as progression of the left paraspinal mass. She ended up having a bone biopsy that was positive Metastatic lung adenocarcinoma. She is medicated for HTN, on eliquis for a fib. Patient was discharged less than 24 hours, then admitted for left-sided weakness, imaging consistent with CVA, on 01/23/22 The patient was discharged to rehab on [facility]. She was seen in the office on 02/04/[address] Henry Mantilla. She was felt to be overall poor candidate for conventional chemotherapy. However her biomarker testing did show 70% PD1 positivity, which would make her an appropriate candidate for first-line treatment with PD-1 immunotherapy. However this could not be administered while the patient was undergoing rehab. The plan was for her to follow-up after discharge from the [facility]. The patient was readmitted because of a fall. She states that she had gotten out of bed for the bathroom and lost her balance when turning around. She denies any dizziness or loss of consciousness. She did bump her head but did not pass out. On evaluation in the ER, she was found to have some increasing pleural effusion in the right lung. Right upper lobe opacity was noted, which could represent her known primary site. UA was abnormal. Patient was therefore admitted for further management Review of Systems Constitutional: Reports chronic pain, Reports poor appetite, Reports weakness Eyes: denies blurred vision, denies pain Ears: deny: decreased hearing, ear discharge, earache, tinnitus Ears, nose, mouth and throat: Denies headache, Denies sore throat Cardiovascular: Reports shortness of breath Respiratory: Reports as per HPI, Reports cough Gastrointestinal: Denies abdominal pain, Denies diarrhea, Denies nausea, Denies vomiting Genitourinary: Reports dysuria, Denies hematuria Menstruation: Reports postmenopausal Musculoskeletal: Reports as per HPI, Reports muscle weakness Integumentary: Denies pruritus, Denies rash Neurological: Reports as per HPI, Reports confusion, Reports weakness (Left- sided weakness, upper extremity greater than lower extremity, left facial droop) Psychiatric: Reports confusion Endocrine: Reports fatigue Hematologic/Lymphatic: Reports as per HPI Past Medical History Past Medical History: Eye Disorder, Hypertension, Osteoarthritis (OA) Additional Past Medical History / Comment(s): Hx. of DIVERTICULITIS, LT EYE MAC. DEGEN. HTN resolved after surgery., dysphagia History of Any Multi-Drug Resistant Organisms: None Reported Past Surgical History: Bariatric Surgery, Cholecystectomy, Orthopedic Surgery, Tubal Ligation Additional Past Surgical History / Comment(s): RIGHT SHOULDER SX, COLONOSCOPY, EGD sleeve gastrectomy 02-01-18 Past Anesthesia/Blood Transfusion Reactions: No Reported Reaction Additional Past Anesthesia/Blood Transfusion Reaction / Comm: Pt states that in June [address] Mckeon attempted to perform an EGD with dilation, the procedure had to be cancelled because she experienced a BP "way over 200 when they put me under" Past Psychological History: No Psychological Hx Reported Smoking Status: Never smoker Past Alcohol Use History: Daily Past Drug Use History: None Reported - Past Family History Mother Family Medical History: CVA/TIA Father Family Medical History: Myocardial Infarction ([place]) Medications and Allergies Home Medications Medication Instructions Recorded Confirmed Type amLODIPine [Norvasc] 5 mg PO DAILY 06/27/20 02/06/22 History Budesonide-Formot 160-4.5 Mcg 2 puff INHALATION RT-BID each 12/31/21 02/06/22 Rx [Symbicort 160-4.5 Mcg Inhaler] Metoprolol Tartrate [Lopressor] 50 mg PO BID #60 tab 01/20/22 02/06/22 Rx Magnesium Hydroxide [Milk of 2,400 mg PO DAILY PRN ml 01/22/22 02/06/22 Rx Magnesia Concentrate] polyethylene glycoL 3350 [Miralax] 17 gm PO BID packet 01/22/22 02/06/22 Rx Atorvastatin [Lipitor] 80 mg PO HS tab 01/31/22 02/06/22 Rx Rivaroxaban [Xarelto] 20 mg PO W/SUPPER tab 01/31/22 02/06/22 Rx fentaNYL 12MCG/HR PATCH [Duragesic 1 patch TRANSDERM Q72H 3 Days #1 01/31/22 02/06/22 Rx 12MCG/HR] patch ALPRAZolam [Xanax] 0.25 mg PO Q6H PRN 02/06/22 02/06/22 History Amiodarone [Cordarone] 100 mg PO DAILY 02/06/22 02/06/22 History HYDROcodone/APAP 10-325MG [[place] 1 tab PO Q4H PRN 02/06/22 02/06/22 History 10-325] Omeprazole 40 mg PO DAILY 02/06/22 02/06/22 History Sennosides-Docusate Sodium 2 tab PO BID 02/06/22 02/06/22 History [Senokot-S] Allergies Allergy/AdvReac Type Severity Reaction Status Date / Time Penicillins Allergy Severe Anaphylaxis Verified 02/06/22 16:01 morphine Allergy Rash/Hives Verified 02/06/22 16:01 Physical Exam Vitals: Vital Signs Temp Pulse Resp BP Pulse Ox 02/07/22 15:01 64 17 143/57 98 02/07/22 14:01 64 16 137/62 98 02/07/22 13:01 98.7 F 62 16 136/61 100 02/07/22 08:03 98.7 F 118 H 19 153/101 97 02/07/22 00:12 71 16 129/65 98 02/06/22 23:04 68 15 133/77 99 - Constitutional General appearance: no acute distress - EENT Eyes: EOMI, PERRLA ENT: hearing grossly normal, normal oropharynx - Neck Neck: no lymphadenopathy Thyroid: bilateral: normal size - Respiratory Respiratory: right: diminished - Cardiovascular Rhythm: irregularly irregular Heart sounds: normal: S1, S2 - Gastrointestinal General gastrointestinal: normal bowel sounds, soft - Integumentary Integumentary: normal - Neurologic Neurologic: focal deficits (Left facial droop, left upper extremity strength about 3+/5. Left lower extremity about 4+/5. Right-sided strength normal ) - Musculoskeletal Musculoskeletal: generalized weakness, left sided weakness - Psychiatric Psychiatric: A&O x's 3 (The patient has been noted to be confused previously but was oriented currently) Results CBC & Chem 7: 02/06/22 21:03 02/06/22 21:03 Labs: Abnormal Lab Results - Last 24 Hours (Table) 02/06/22 02/06/22 02/06/22 Range/Units 21:03 21:03 22:30 WBC 11.0 H (3.8-10.6) k/uL Hgb 11.3 L (11.4-16.0) gm/dL Neutrophils # 9.6 H (1.3-7.7) k/uL Lymphocytes # 0.6 L (1.0-4.8) k/uL Potassium 3.4 L (3.5-5.1) mmol/L Carbon Dioxide 33 H (22-30) mmol/L AST 48 H (14-36) U/L ALT 37 H (4-34) U/L TSH 8.980 H (0.465-4.680) mIU/L Urine Appearance Cloudy H (Clear) Urine Protein 2+ H (Negative) Urine Blood Large H (Negative) Ur Leukocyte Esterase Moderate H (Negative) Urine RBC >182 H (0-5) /hpf Urine WBC 58 H (0-5) /hpf Urine Bacteria Many H (None) /hpf Urine Mucus Many H (None) /hpf Urine Yeast (Budding) Occasional H (None) /hpf Chest x-ray: report reviewed CT Scan - head: report reviewed Assessment and Plan (1) Fall Narrative/Plan: The patient denied any loss of consciousness or dizziness. She did have some trauma but CT head was negative for bleed. She stated that she fell because she lost her balance while turning urinating getting out of bed and going to the bathroom. - The patient was noted to have possible UTI. There was concern for pneumonia. It is not clear if these may have quantitated to her fall. The patient herself denied feeling weaker than usual. Current Visit: Yes Status: Acute Code(s): W19.XXXA - UNSPECIFIED FALL, INITIAL ENCOUNTER SNOMED Code(s): 9055612 (2) Lung cancer metastatic to bone Narrative/Plan: Diagnostic and therapeutic circumstances so far as described above. The patient has had palliative radiation to the metastatic site in the lower lumbar/S spine. She is not felt to be a good candidate for conventional chemotherapy, but does have biomarker possibility that would make her a candidate for upfront single agent PD1 immunotherapy. This is well tolerated and the majority of patients, but the patient cannot start the same, while she is undergoing rehab. Therefore the plan was for her to follow-up in the office after she is able to be discharged from rehab to consider starting treatment. Therefore there are no active recommendations in this regard at this time Current Visit: Yes Status: Acute Code(s): C34.90 - MALIGNANT NEOPLASM OF UNSP PART OF UNSP BRONCHUS OR LUNG; C79.51 - SECONDARY MALIGNANT NEOPLASM OF BONE SNOMED Code(s): 983352326 (3) Pleural effusion Narrative/Plan: The patient was noted to have right-sided pleural effusion which is moderate in size, and felt to be progressive. He does note some shortness of breath currently. Pulmonary medicine on consult to evaluate for need for thoracentesis. Check cytology if she does have paracentesis Current Visit: Yes Status: Acute Code(s): J90 - PLEURAL EFFUSION, NOT ELSEWHERE CLASSIFIED SNOMED Code(s): 35167859 Plan: Defer to the admitting service for management of possible UTI. There is concern for pneumonia but the patient's right upper lobe opacity on x-ray may represent her known primary cancer also. - Although the patient does not feel subjectively improved from her stroke, on examination there did appear to be at least some improvement in the left upper extremity, with currently very minor differences in strength between the 2 lower extremities.
[2022-02-07] MEDS: RIVAROXABAN 20 MG TAB PO SCH (18:24)
[2022-02-07] MEDS: HYDROcodone/APAP 10-325MG 1 EACH TAB PO PRN (18:30)
--- NOTE | 2022-02-07 20:43 | US ---
EXAMINATION TYPE: US chest DATE OF EXAM: 02/07/2022 COMPARISON: CLINICAL HISTORY: Markings for thoracentesis by pulmonary staff. TECHNIQUE: Targeted ultrasound of the posterior lower bilateral hemithoraces EXAM MEASUREMENTS: Right Pleural Effusion pocket size: 10.4 cm Right skin surface to fluid distance: 2.3 cm Left Pleural Effusion pocket size: 0.0 cm Right side marked for possible thoracentesis outside the dept. Left side NOT marked for possible thoracentesis outside the dept. Pulmonologists are able to review the images in the patient?s EMR. IMPRESSIONS: There is demonstration of a moderate size right pleural effusion. No significant pleural fluid on the left side.
[2022-02-07] MEDS: ATORVASTATIN 80 MG TAB PO SCH (22:57)
[2022-02-08] MEDS: AZITHROMYCIN 500 MG in SODIUM CHLORIDE 0.9% 250 ML IVPB SCH ×2 (00:28→21:49)
[2022-02-08] MEDS: SYMBICORT 160-4.5 MCG INHALER INHALATION SCH ×2 (07:58→20:06)
[2022-02-08] MEDS: SENNOSIDES-DOCUSATE SODIUM 1 EACH TAB PO SCH ×2 (08:19→21:48)
[2022-02-08] MEDS: LEVOTHYROXINE 25 MCG TAB PO SCH (08:19)
[2022-02-08] MEDS: METOPROLOL TARTRATE 50 MG TAB PO SCH ×2 (08:19→21:48)
[2022-02-08] MEDS: polyethylene glycoL 3350 17 GM POWD.PACK PO SCH ×2 (08:19→21:49)
[2022-02-08] MEDS: amLODIPine 5 MG TAB PO SCH (08:19)
[2022-02-08] MEDS: PANTOPRAZOLE 40 MG TABLET PO SCH (08:19)
[2022-02-08] MEDS: AMIODARONE 100 MG TAB PO SCH (08:20)
[2022-02-08] MEDS: ONDANSETRON 4 MG/2 ML VIAL IVP PRN (10:59)
[2022-02-08] MEDS: HYDROcodone/APAP 10-325MG 1 EACH TAB PO PRN (10:59)
[2022-02-08 11:10] LABS: Basophils # (A) 0.03 X 10*3/uL (0.00-0.10); Basophils % (A) 0.3 %; Eosinophils # (A) 0.39 X 10*3/uL (0.04-0.35); Eosinophils % (A) 4.3 %; HCT 32.7 % (37.2-46.3); HGB 9.8 g/dL (12.0-15.0); Immature Grans, Automated 0.7 %; Lymphocytes # (A) 0.64 X 10*3/uL (0.90-5.00); Lymphocytes % (A) 7.1 %; MCH 27.2 pg (27.0-32.0); MCV 90.8 fL (80.0-97.0); Mean Platelet Volume 11.6 fL (9.5-12.2); Monocytes # (A) 0.63 X 10*3/uL (0.20-1.00); Monocytes % (A) 6.9 %; NRBC Per 100 WBC 0 /100 WBCS (0.0-0.0); Neutrophils # (A) 7.32 X 10*3/uL (1.80-7.70); Neutrophils % (A) 80.7 %; Platelet Count 170 X 10*3/uL (140-440); RDW 14.4 % (11.5-14.5); WBC 9.07 X 10*3/uL (4.50-10.00)
[2022-02-08 11:33] LABS: African American GFR (CKD) 107.4 (60.0-200.0); Albumin 3.2 g/dL (3.8-4.9); Albumin/Globulin Ratio 1.28 (1.60-3.17); Anion Gap 13.7 mmol/L (10.00-18.00); BUN/Creat Ratio 16.6 Ratio (12.00-20.00); Blood Urea Nitrogen 8.3 mg/dL (9.0-27.0); Calcium 8.6 mg/dL (8.7-10.3); Carbon Dioxide 25.3 mmol/L (20.0-27.5); Globulin 2.5 g/dL (1.6-3.3); Non-African American GFR(CKD) 92.7 (60.0-200.0); Potassium 3.8 mmol/L (3.5-5.5); Total Bilirubin 0.4 mg/dL (0.30-1.20); Total Protein 5.7 g/dL (6.2-8.2)
--- NOTE | 2022-02-08 12:05 | P.CNPUL ---
History of Present Illness Consult date: 02/08/22 Requesting physician: Sheila Abreu Reason for consult: dyspnea, abnormal CXR/CT Chief complaint: Status post fall History of present illness: This is a 76-year-old female patient with a recent acute ischemic stroke in the right middle cerebral artery distribution, metastatic non-small cell carcinoma lung cancer, atrial fibrillation maintained on Xarelto, hypertension, hyperlipidemia, chronic obstructive pulmonary disease, gastroesophageal reflux disease. The patient had been receiving palliative radiation to the medical metastatic site in the lower lumbar spine. She was not felt to be a good candidate for conventional chemotherapy. She would be considered for immunotherapy if not such a poor physical candidate. She was recently here for her acute CVA and was discharged to an extended care facility. On 02/06/2022 she took a fall there and was brought in to our emergency room. She states she fell in the bathroom. She denied any loss of consciousness. Denied any pre-or post symptoms. A chest x-ray was performed that revealed a increasing pleural effusion of the right lung. Right upper lobe opacity most likely representing her known primary site. Ultrasound of the right chest does reveal a 10.4 cm pocket and marked for possible thoracentesis. White count 9.0. Hemoglobin 9.8. Sodium 144. Potassium 3.8. BUN 8. Creatinine 0.5. Calcium 8.6. Influenza screen negative. RSV screen negative. COVID-19 screen negative. Urinalysis with many bacteria and high white count. Possible underlying UTI. She is seen today in consultation on the oncology unit. She is currently sitting up in bed. Awake and alert. She is anxious and upset. She states she is afraid she is g oing to in the hospital. She wants to go home. She is maintaining good O2 saturations up to 98% on 2 L nasal cannula. Afebrile. Hemodynamically stable. She is declining any procedures at this time including a thoracentesis. Review of Systems REVIEW OF SYSTEMS: CONSTITUTIONAL: Status post fall without acute injury. EYES: Denies change in vision. EARS, NOSE, MOUTH, THROAT: Denies headaches, denies sore throat. CARDIOVASCULAR: Denies chest pain, palpitations or syncopal episodes. RESPIRATORY: Denies shortness of breath, cough, congestion or hemoptysis. GASTROINTESTINAL: Denies change in appetite, denies abdominal pain GENITOURINARY: Denies hematuria, denies infections. MUSKULOSKELETAL: Denies pain, denies swelling. INTEGUMENTARY: Denies rash, denies eczema. NEUROLOGICAL: Denies recent memory loss, no recent seizure activity. PSYCHIATRIC: Denies anxiety, denies depression. HEMATOLOGIC/LYMPHATIC: Denies anemia, denies enlarged lymph nodes. Past Medical History Past Medical History: Eye Disorder, Hypertension, Osteoarthritis (OA) Additional Past Medical History / Comment(s): Hx. of DIVERTICULITIS, LT EYE MAC. DEGEN. HTN resolved after surgery., dysphagia History of Any Multi-Drug Resistant Organisms: None Reported Past Surgical History: Bariatric Surgery, Cholecystectomy, Orthopedic Surgery, Tubal Ligation Additional Past Surgical History / Comment(s): RIGHT SHOULDER SX, COLONOSCOPY, EGD sleeve gastrectomy 02-01-18 Past Anesthesia/Blood Transfusion Reactions: No Reported Reaction Additional Past Anesthesia/Blood Transfusion Reaction / Comment(s): Pt states that in June [address] Mckeon attempted to perform an EGD with dilation, the procedure had to be cancelled because she experienced a BP "way over 200 when they put me under" Past Psychological History: No Psychological Hx Reported Smoking Status: Never smoker Past Alcohol Use History: Daily Additional Past Alcohol Use History / Comment(s): Quit smoking in 1999. Past Drug Use History: None Reported - Past Family History Mother Family Medical History: CVA/TIA Father Family Medical History: Myocardial Infarction ([place]) Medications and Allergies Home Medications Medication Instructions Recorded Confirmed Type amLODIPine [Norvasc] 5 mg PO DAILY 06/27/20 02/06/22 History Budesonide-Formot 160-4.5 Mcg 2 puff INHALATION RT-BID each 12/31/21 02/06/22 Rx [Symbicort 160-4.5 Mcg Inhaler] Metoprolol Tartrate [Lopressor] 50 mg PO BID #60 tab 01/20/22 02/06/22 Rx Magnesium Hydroxide [Milk of 2,400 mg PO DAILY PRN ml 01/22/22 02/06/22 Rx Magnesia Concentrate] polyethylene glycoL 3350 [Miralax] 17 gm PO BID packet 01/22/22 02/06/22 Rx Atorvastatin [Lipitor] 80 mg PO HS tab 01/31/22 02/06/22 Rx Rivaroxaban [Xarelto] 20 mg PO W/SUPPER tab 01/31/22 02/06/22 Rx fentaNYL 12MCG/HR PATCH [Duragesic 1 patch TRANSDERM Q72H 3 Days #1 01/31/22 02/06/22 Rx 12MCG/HR] patch ALPRAZolam [Xanax] 0.25 mg PO Q6H PRN 02/06/22 02/06/22 History Amiodarone [Cordarone] 100 mg PO DAILY 02/06/22 02/06/22 History HYDROcodone/APAP 10-325MG [[place] 1 tab PO Q4H PRN 02/06/22 02/06/22 History 10-325] Omeprazole 40 mg PO DAILY 02/06/22 02/06/22 History Sennosides-Docusate Sodium 2 tab PO BID 02/06/22 02/06/22 History [Senokot-S] Allergies Allergy/AdvReac Type Severity Reaction Status Date / Time Penicillins Allergy Severe Anaphylaxis Verified 02/06/22 16:01 morphine Allergy Rash/Hives Verified 02/06/22 16:01 Physical Exam Vitals: Vital Signs Temp Pulse Pulse Resp BP BP Pulse Ox 02/08/22 08:15 98.2 F 65 16 147/66 98 02/08/22 07:58 95 02/08/22 01:50 97.9 F 67 15 151/68 94 L 02/07/22 20:50 97.7 F 72 15 145/64 96 02/07/22 15:01 64 17 143/57 98 02/07/22 14:01 64 16 137/62 98 02/07/22 13:01 98.7 F 62 16 136/61 100 Intake and Output 02/07/22 02/08/22 02/08/22 22:59 06:59 14:59 Intake Total 50 Balance 50 Intake: Intake, IV Titration 50 Amount cefTRIAXone 1 gm In 50 Sodium Chloride 0.9% 50 ml @ 100 mls/hr IVPB DAILY@1800 [facility] Rx#: [id number] Other: Voiding Method Bedside Commode Bedside Commode # Voids 2 1 # Bowel Movements 0 Weight 72.575 kg GENERAL EXAM: Alert, anxious 76-year-old female, on 2 L nasal cannula, comfortable in no apparent distress. HEAD: Normocephalic. EYES: Normal reaction of pupils, equal size. NOSE: Clear with pink turbinates. THROAT: No erythema or exudates. NECK: No masses, no JVD. CHEST: No chest wall deformity. LUNGS: Equal air entry with diminished breath sounds in the right base. CVS: S1 and S2 normal with no audible murmur, regular rhythm. ABDOMEN: No hepatosplenomegaly, normal bowel sounds, no guarding or rigidity. SPINE: No scoliosis or deformity SKIN: No rashes CENTRAL NERVOUS SYSTEM: No focal deficits, tone is normal in all 4 extremities. EXTREMITIES: Left-sided weakness. There is no peripheral edema. No clubbing, no cyanosis. Peripheral pulses are intact. Results - Laboratory Findings CBC and BMP: 02/08/22 04:59 02/08/22 04:48 PT/INR, D-dimer PT 11.7 sec (9.0-12.0) 02/06/22 21:03 INR 1.1 (<1.2) 02/06/22 21:03 Abnormal lab findings: Abnormal Labs 02/06/22 02/06/22 02/06/22 21:03 21:03 22:30 WBC 11.0 H RBC Hgb 11.3 L Hct MCHC Immature Gran # Neutrophils # 9.6 H Lymphocytes # 0.6 L Eosinophils # Potassium 3.4 L Carbon Dioxide 33 H BUN Creatinine Calcium AST 48 H ALT 37 H Total Protein Albumin Albumin/Globulin Ratio TSH 8.980 H Urine Appearance Cloudy H Urine Protein 2+ H Urine Blood Large H Ur Leukocyte Esterase Moderate H Urine RBC >182 H Urine WBC 58 H Urine Bacteria Many H Urine Mucus Many H Urine Yeast (Budding) Occasional H 02/08/22 02/08/22 04:48 04:59 WBC RBC 3.60 L Hgb 9.8 L Hct 32.7 L MCHC 30.0 L Immature Gran # 0.06 H Neutrophils # Lymphocytes # 0.64 L Eosinophils # 0.39 H Potassium Carbon Dioxide BUN 8.3 L Creatinine 0.5 L Calcium 8.6 L AST 36 H ALT Total Protein 5.7 L Albumin 3.2 L Albumin/Globulin Ratio 1.28 L TSH Urine Appearance Urine Protein Urine Blood Ur Leukocyte Esterase Urine RBC Urine WBC Urine Bacteria Urine Mucus Urine Yeast (Budding) - Diagnostic Findings Chest x-ray: image reviewed Assessment and Plan Assessment: Fall without acute injury. Computed tomography scan of the brain revealed no acute intracranial process. Moderate diffuse age-related cerebral atrophy. Urinary tract infection, cultures pending Recent CVA with left-sided weakness Advanced metastatic non-small cell lung cancer with bone metastasis. Receiving palliative radiation to the lower spine but no conventional chemotherapy. to debilitated currently for immunotherapy. History of atrial fibrillation, anticoagulated with Xarelto History of chronic tobacco dependence History of hypertension Hyperlipidemia Chronic obstructive pulmonary disease Poor overall functional performance based on the above-mentioned multiple comorbidities Plan: The patient was seen and evaluated Chest x-ray, labs and medications reviewed Continue Symbicort, albuterol Stable and on 2 L nasal cannula Patient is declining thoracentesis at this time Currently on Xarelto Patient is requesting to go home with hospice We'll leave this up to the oncology/medicine I have personally seen and examined the patient, performed the documentation and the assessment and plan as written. Number of minutes spent on the visit: 20.
[2022-02-08] MEDS: RIVAROXABAN 20 MG TAB PO SCH (17:46)
[2022-02-08] MEDS: ATORVASTATIN 80 MG TAB PO SCH (21:48)
[2022-02-08] MEDS: ALPRAZolam 0.25 MG TAB PO PRN (23:05)
[2022-02-09] MEDS: HYDROcodone/APAP 10-325MG 1 EACH TAB PO PRN ×3 (02:44→20:56)
[2022-02-09] MEDS: LEVOTHYROXINE 25 MCG TAB PO SCH (06:23)
--- NOTE | 2022-02-09 08:13 | PN ---
PROGRESS NOTE DATE OF SERVICE: 02/08/2022 SUBJECTIVE: This is a 76-year-old woman who was being followed by Dr. Abreu and the patient admitted with history of recent fall and right upper lobe pneumonia. Patient also has UTI. Patient is being closely monitored. No chest pain, no palpitations, no fever. OBJECTIVE: VITAL SIGNS: Pulse is 65, blood pressure 142/60, and respirations 16. HEENT: Conjunctivae normal. NECK: No jugular venous distention. CARDIOVASCULAR: S1, S2 muffled. RESPIRATIONS: Few scattered rhonchi. ABDOMEN: Soft. NERVOUS SYSTEM: Diffusely weak. LABS: WBC 11, rest of the labs noted. ASSESSMENT: 1. Recent fall. 2. Right upper lobe pneumonia. 3. Acute urinary tract infection present on admission. 4. Recent acute ischemic stroke right middle cerebral artery distribution. 5. History of atrial fibrillation. 6. Recent diagnosis of lung cancer with metastatic bone disease. 7. Hypertension. 8. Multiple medical issues. RECOMMENDATIONS: Recommended to continue current medications, symptomatic treatment. Otherwise PT, OT evaluation. Continue the antibiotics and repeat labs. PT/OT evaluation, possible ECF rehab. Resume the home medications. Prognosis guarded. Further recommendations to follow. MMODL / IJN: [id number] /
[2022-02-09] MEDS: SYMBICORT 160-4.5 MCG INHALER INHALATION SCH ×2 (08:33→21:00)
[2022-02-09] MEDS: ALPRAZolam 0.25 MG TAB PO PRN (09:17)
[2022-02-09] MEDS: polyethylene glycoL 3350 17 GM POWD.PACK PO SCH ×2 (09:17→20:57)
[2022-02-09] MEDS: SENNOSIDES-DOCUSATE SODIUM 1 EACH TAB PO SCH ×2 (09:17→20:55)
[2022-02-09] MEDS: amLODIPine 5 MG TAB PO SCH (09:17)
[2022-02-09] MEDS: METOPROLOL TARTRATE 50 MG TAB PO SCH ×2 (09:17→20:56)
[2022-02-09] MEDS: PANTOPRAZOLE 40 MG TABLET PO SCH (09:17)
[2022-02-09] MEDS: AMIODARONE 100 MG TAB PO SCH (09:18)
[2022-02-09 09:39] LABS: African American GFR (CKD) 104.1 (60.0-200.0); Anion Gap 12.5 mmol/L (10.00-18.00); BUN/Creat Ratio 19.78 Ratio (12.00-20.00); Blood Urea Nitrogen 10.9 mg/dL (9.0-27.0); Calcium 8.6 mg/dL (8.7-10.3); Carbon Dioxide 26.2 mmol/L (20.0-27.5); Non-African American GFR(CKD) 89.8 (60.0-200.0); Potassium 3.7 mmol/L (3.5-5.5)
[2022-02-09 09:41] LABS: Basophils # (A) 0.04 X 10*3/uL (0.00-0.10); Basophils % (A) 0.4 %; Eosinophils # (A) 0.28 X 10*3/uL (0.04-0.35); HCT 31.1 % (37.2-46.3); HGB 9.5 g/dL (12.0-15.0); Immature Grans, Automated 0.6 %; Lymphocytes # (A) 0.62 X 10*3/uL (0.90-5.00); Lymphocytes % (A) 6.6 %; MCH 27.1 pg (27.0-32.0); MCHC 30.5 g/dL (32.0-37.0); MCV 88.6 fL (80.0-97.0); Monocytes # (A) 0.65 X 10*3/uL (0.20-1.00); Monocytes % (A) 6.9 %; NRBC Per 100 WBC 0 /100 WBCS (0.0-0.0); Neutrophils # (A) 7.73 X 10*3/uL (1.80-7.70); Neutrophils % (A) 82.5 %; Platelet Count 153 X 10*3/uL (140-440); RBC 3.51 X 10*6/uL (4.10-5.20); RDW 14.5 % (11.5-14.5); WBC 9.38 X 10*3/uL (4.50-10.00)
--- NOTE | 2022-02-09 13:59 | P.PN ---
Subjective Progress Note Date: 02/09/22 Principal diagnosis: metastatic lung cancer with right-sided pleural effusion This is a 76-year-old female patient with a recent acute ischemic stroke in the right middle cerebral artery distribution, metastatic non-small cell carcinoma lung cancer, atrial fibrillation maintained on Xarelto, hypertension, hyperlipidemia, chronic obstructive pulmonary disease, gastroesophageal reflux disease. The patient had been receiving palliative radiation to the medical metastatic site in the lower lumbar spine. She was not felt to be a good candidate for conventional chemotherapy. She would be considered for immunotherapy if not such a poor physical candidate. She was recently here for her acute CVA and was discharged to an extended care facility. On 02/06/2022 she took a fall there and was brought in to our emergency room. She states she fell in the bathroom. She denied any loss of consciousness. Denied any pre-or post symptoms. A chest x-ray was performed that revealed a increasing pleural effusion of the right lung. Right upper lobe opacity most likely representing her known primary site. Ultrasound of the right chest does reveal a 10.4 cm pocket and marked for possible thoracentesis. White count 9.0. Hemoglobin 9.8. Sodium 144. Potassium 3.8. BUN 8. Creatinine 0.5. Calcium 8.6. Influenza screen negative. RSV screen negative. COVID-19 screen negative. Urinalysis with many bacteria and high white count. Possible underlying UTI. She is seen today in consultation on the oncology unit. She is currently sitting up in bed. Awake and alert. She is anxious and upset. She states she is afraid she is going to in the hospital. She wants to go home. She is maintaining good O2 saturations up to 98% on 2 L nasal cannula. Afebrile. Hemodynamically stable. She is declining any procedures at this time including a thoracentesis. Patient was reevaluated today on 02/09/22, remains on the regular medical floor, patient is not in any distress, and when I saw her yesterday the patient requested to be made hospice. I still believe the patient should be made hospice, and hospice was consulted. Objective - Vital Signs Vital signs: Vital Signs Temp 97.9 F 02/09/22 12:30 Pulse 60 02/09/22 12:30 Resp 18 02/09/22 12:30 BP 125/72 02/09/22 12:30 Pulse Ox 97 02/09/22 12:30 FiO2 Intake & Output 02/08/22 02/09/22 02/09/22 18:59 06:59 18:59 Intake Total 590 Balance 590 Intake: Oral 590 Other: Voiding Method Bedside Commode Bedside Commode Bedside Commode # Voids 1 1 # Bowel Movements 0 - Exam Physical Exam: Revealed 76-year-old female in no distress on 2 L nasal cannula HEENT:[Neck is supple.] [No neck masses.] [No thyromegaly.] [No JVD.] Chest: [diminished breath sounds and dullness at the right base. Cardiac Exam: [Normal S1 and S2, no S3 gallop, no murmur.] Abdomen: [Soft, nontender, no megaly, no rebound, no guarding, normal bowel sounds.] Extremities: [No clubbing, no edema, no cyanosis.] Neurological Exam: [No focal neurologic deficit.] - Labs CBC & Chem 7: 02/09/22 05:25 02/09/22 05:25 Labs: Abnormal Lab Results - Last 24 Hours (Table) 02/09/22 02/09/22 Range/Units 05:25 05:25 RBC 3.51 L (4.10-5.20) X 10*6/uL Hgb 9.5 L (12.0-15.0) g/dL Hct 31.1 L (37.2-46.3) % MCHC 30.5 L (32.0-37.0) g/dL Immature Gran # 0.06 H (0.00-0.04) X 10*3/uL Neutrophils # 7.73 H (1.80-7.70) X 10*3/uL Lymphocytes # 0.62 L (0.90-5.00) X 10*3/uL Glucose 69 L (70-110) mg/dL Calcium 8.6 L (8.7-10.3) mg/dL Microbiology - Last 24 Hours (Table) 02/07/22 04:13 Blood Culture - Preliminary Blood No Growth after 48 hours 02/06/22 22:30 Urine Culture - Preliminary Urine,Voided Group D Enterococcus Assessment and Plan Assessment: Fall without acute injury. Computed tomography scan of the brain revealed no acute intracranial process. Moderate diffuse age-related cerebral atrophy. Urinary tract infection, cultures pending Recent CVA with left-sided weakness Advanced metastatic non-small cell lung cancer with bone metastasis. Receiving palliative radiation to the lower spine but no conventional chemotherapy. to debilitated currently for immunotherapy. History of atrial fibrillation, anticoagulated with Xarelto History of chronic tobacco dependence History of hypertension Hyperlipidemia Chronic obstructive pulmonary disease Poor overall functional performance based on the above-mentioned multiple comorbidities recommendation: Continue present treatment plan, Still recommend hospice evaluation. No need for thoracentesis. Time with Patient: Less than 30
[2022-02-09] MEDS: RIVAROXABAN 20 MG TAB PO SCH (18:47)
[2022-02-09] MEDS: ATORVASTATIN 80 MG TAB PO SCH (20:55)
[2022-02-09] MEDS: AZITHROMYCIN 500 MG in SODIUM CHLORIDE 0.9% 250 ML IVPB SCH (20:55)
[2022-02-10] MEDS: ALPRAZolam 0.25 MG TAB PO PRN ×2 (01:28→20:46)
--- NOTE | 2022-02-10 03:31 | PN ---
PROGRESS NOTE DATE OF SERVICE: 02/09/2022 SUBJECTIVE: This is a 76-year-old woman who was admitted with fall and right upper lobe pneumonia is being closely monitored. The patient on antibiotics. No chest pain, no palpitation. PHYSICAL EXAMINATION: VITAL SIGNS: Pulse is 60, blood pressure N, respirations 18. CHEST: Few scattered rhonchi. CARDIOVASCULAR: S1 and S2. ABDOMEN: Soft. Nontender. NERVOUS SYSTEM: Mild diffuse weakness. LABORATORY DATA: Reviewed. ASSESSMENT: 1. Recent fall. 2. Right upper lobe pneumonia. 3. Acute urinary tract infection, present on admission. 4. Recent acute ischemic stroke, right middle cerebral artery distribution. 5. History atrial fibrillation. 6. Recent diagnosis of lung cancer with metastatic bone disease. 7. Hypertension. 8. Multiple medical issues. RECOMMENDATIONS: Recommended to continue current management and continue the antibiotics. Otherwise PT OT evaluation, possible ECF rehab. Guarded prognosis. Further recommendations to follow. KADE / JOHNN: [id number] / MTDDorothy
[2022-02-10] MEDS: LEVOTHYROXINE 25 MCG TAB PO SCH (05:53)
--- NOTE | 2022-02-10 07:13 | P.CONS ---
History of Present Illness - Chief Complaint Gait disturbance, head injury - History of Present Illness I had the opportunity to see patient for inpatient rehab consultation today. Patient admitted to Dr. Abreu February 06 history of fall and hitting had. Has history of stroke and previous left hemiplegia. Seen by Dr. Steele for non-small cell pulmonary cancer with bone metastases very notes possible UTI. Diagnostic tests head CT with moderate diffuse age-related change and [id number] chronic small vessel change. Chest x-ray with moderate right pleural effusion and right upper lobe infiltrate/consolidation. Chest ultrasound was done for thoracentesis. PT and OT prescribed. Previous functional history as elicited from patient: Patient states that she is 76-year-old right-handed white female who is single lives in one floor home alone. Describes previously independent with own cooking, laundry, driving, standing shower gait without device. In fact may have been ECF instead. Review of Systems Review of systems: Complains of feeling that is just build water on herself. ENT: Denies sneezes or discharge. Eyes: Denies discharge or photophobia. Cardiac: Denies chest pain or palpitation. Pulmonary: Denies cough or shortness of breath. Breast: Denies discharge or lumps. Gastrointestinal: Denies nausea, emesis, constipation, diarrhea. Genitourinary: Denies discharge or frequency. Musculoskeletal: Denies muscle or bone aches. Neurologic: Left-sided weakness and numbness, long-standing. Endocrine: Denies shakes or sweats. Oncology: Denies cancers. Dermatologic: Denies rash, itching, pruritus. ALLERGY/immunology: Denies sneezes, rashes. Past Medical History Past Medical History: Eye Disorder, Hypertension, Osteoarthritis (OA) Additional Past Medical History / Comment(s): Hx. of DIVERTICULITIS, LT EYE MAC. DEGEN. HTN resolved after surgery., dysphagia History of Any Multi-Drug Resistant Organisms: None Reported Past Surgical History: Bariatric Surgery, Cholecystectomy, Orthopedic Surgery, Tubal Ligation Additional Past Surgical History / Comment(s): RIGHT SHOULDER SX, COLONOSCOPY, EGD sleeve gastrectomy 02-01-18 Past Anesthesia/Blood Transfusion Reactions: No Reported Reaction Additional Past Anesthesia/Blood Transfusion Reaction / Comm: Pt states that in June [address] Mckeon attempted to perform an EGD with dilation, the procedure had to be cancelled because she experienced a BP "way over 200 when they put me under" Past Psychological History: No Psychological Hx Reported Smoking Status: Never smoker Past Alcohol Use History: Daily Additional Past Alcohol Use History / Comment(s): Quit smoking in 1999. Past Drug Use History: None Reported - Past Family History Mother Family Medical History: CVA/TIA Father Family Medical History: Myocardial Infarction (PR) Medications and Allergies Home Medications Medication Instructions Recorded Confirmed Type amLODIPine [Norvasc] 5 mg PO DAILY 06/27/20 02/06/22 History Budesonide-Formot 160-4.5 Mcg 2 puff INHALATION RT-BID each 12/31/21 02/06/22 Rx [Symbicort 160-4.5 Mcg Inhaler] Metoprolol Tartrate [Lopressor] 50 mg PO BID #60 tab 01/20/22 02/06/22 Rx Magnesium Hydroxide [Milk of 2,400 mg PO DAILY PRN ml 01/22/22 02/06/22 Rx Magnesia Concentrate] polyethylene glycoL 3350 [Miralax] 17 gm PO BID packet 01/22/22 02/06/22 Rx Atorvastatin [Lipitor] 80 mg PO HS tab 01/31/22 02/06/22 Rx Rivaroxaban [Xarelto] 20 mg PO W/SUPPER tab 01/31/22 02/06/22 Rx fentaNYL 12MCG/HR PATCH [Duragesic 1 patch TRANSDERM Q72H 3 Days #1 01/31/22 02/06/22 Rx 12MCG/HR] patch ALPRAZolam [Xanax] 0.25 mg PO Q6H PRN 02/06/22 02/06/22 History Amiodarone [Cordarone] 100 mg PO DAILY 02/06/22 02/06/22 History HYDROcodone/APAP 10-325MG [[place] 1 tab PO Q4H PRN 02/06/22 02/06/22 History 10-325] Omeprazole 40 mg PO DAILY 02/06/22 02/06/22 History Sennosides-Docusate Sodium 2 tab PO BID 02/06/22 02/06/22 History [Senokot-S] Allergies Allergy/AdvReac Type Severity Reaction Status Date / Time Penicillins Allergy Severe Anaphylaxis Verified 02/06/22 16:01 morphine Allergy Rash/Hives Verified 02/06/22 16:01 Physical Exam Vitals: Vital Signs Temp Pulse Resp BP Pulse Ox 02/10/22 02:00 98.1 F 65 16 177/79 92 L 02/09/22 20:00 98.1 F 60 16 145/74 92 L 02/09/22 12:30 97.9 F 60 18 125/72 97 02/09/22 08:33 94 L 02/09/22 08:00 60 18 02/09/22 07:15 97.5 F L 62 17 123/67 94 L Intake and Output 02/09/22 02/10/22 02/10/22 22:59 06:59 14:59 Intake Total 200 590 Balance 200 590 Intake: IV 100 cefTRIAXone 1 gm In 100 Sodium Chloride 0.9% 50 ml @ 100 mls/hr IVPB DAILY@1800 [facility] Rx#: [id number] Intake, IV Titration 100 Amount Azithromycin 500 mg In 100 Sodium Chloride 0.9% 250 ml @ 250 mls/hr IVPB DAILY@2100 [facility] Rx#: [id number] Oral 590 Other: Voiding Method Bedside Commode # Voids 2 Skin: Atrophic, intact. General: Medium build and comfortable appearance. Head: Normocephalic, atraumatic. Eyes: Symmetric. Pupils equal round. Ears: Symmetric. Hearing within normal limits. Mouth: Clear. Neck: Supple. Carotid without bruit. Cardiac: Regular rate and rhythm. Lungs: Clear anteriorly and posteriorly. Abdomen: Soft active nontender. Extremities: Normal tone. Neurological: Mental status: Alert, cooperative, pleasant. Cranial nerves: Symmetric facial tone and trapezius. Motor: Active movement right side. Poor left side. Sensation: Intact right side. DTRs: Symmetric and equal throughout. Mobility: Requires physical assist for bed mobility. Results CBC & Chem 7: 02/09/22 05:25 02/09/22 05:25 Labs: Abnormal Lab Results - Last 24 Hours (Table) 02/09/22 02/09/22 Range/Units 05:25 05:25 RBC 3.51 L (4.10-5.20) X 10*6/uL Hgb 9.5 L (12.0-15.0) g/dL Hct 31.1 L (37.2-46.3) % MCHC 30.5 L (32.0-37.0) g/dL Immature Gran # 0.06 H (0.00-0.04) X 10*3/uL Neutrophils # 7.73 H (1.80-7.70) X 10*3/uL Lymphocytes # 0.62 L (0.90-5.00) X 10*3/uL Glucose 69 L (70-110) mg/dL Calcium 8.6 L (8.7-10.3) mg/dL Microbiology - Last 24 Hours (Table) 02/07/22 04:13 Blood Culture - Preliminary Blood No Growth after 72 hours 02/06/22 22:30 Urine Culture - Preliminary Urine,Voided Enterococcus faecium VRE Yeast species Assessment and Plan (1) Altered mental status Current Visit: Yes Status: Acute Code(s): R41.82 - ALTERED MENTAL STATUS, UNSPECIFIED SNOMED Code(s): 479434914 (2) Fall Current Visit: Yes Status: Acute Code(s): W19.XXXA - UNSPECIFIED FALL, INITIAL ENCOUNTER SNOMED Code(s): 7122894 (3) Head injury Current Visit: Yes Status: Acute Code(s): S09.90XA - UNSPECIFIED INJURY OF HEAD, INITIAL ENCOUNTER SNOMED Code(s): 63031193 (4) History of CVA (cerebrovascular accident) Current Visit: Yes Status: Acute Code(s): Z86.73 - PRSNL HX OF TIA (TIA), AND CEREB INFRC W/O RESID DEFICITS SNOMED Code(s): 346967642 (5) Lung cancer metastatic to bone Current Visit: Yes Status: Acute Code(s): C34.90 - MALIGNANT NEOPLASM OF U NSP PART OF UNSP BRONCHUS OR LUNG; C79.51 - SECONDARY MALIGNANT NEOPLASM OF BONE SNOMED Code(s): 600235941 (6) Paralysis due to acute stroke Current Visit: Yes Status: Acute Code(s): I63.9 - CEREBRAL INFARCTION, UNSPECIFIED; G83.9 - PARALYTIC SYNDROME, UNSPECIFIED SNOMED Code(s): 437505308 (7) Pleural effusion Current Visit: Yes Status: Acute Code(s): J90 - PLEURAL EFFUSION, NOT ELSEWHERE CLASSIFIED SNOMED Code(s): 93004135 Plan: Comments and plan: Patient just received PT/OT orders over the weekend. Await their evaluation. Currently would require 24/7 care multiple persons. Should begin to consider ECF placement return to ECF.
[2022-02-10] MEDS: polyethylene glycoL 3350 17 GM POWD.PACK PO SCH ×2 (08:59→20:47)
[2022-02-10] MEDS: METOPROLOL TARTRATE 50 MG TAB PO SCH ×2 (08:59→20:46)
[2022-02-10] MEDS: SENNOSIDES-DOCUSATE SODIUM 1 EACH TAB PO SCH ×2 (08:59→20:46)
[2022-02-10] MEDS: amLODIPine 5 MG TAB PO SCH (09:00)
[2022-02-10] MEDS: AMIODARONE 100 MG TAB PO SCH (09:00)
[2022-02-10] MEDS: PANTOPRAZOLE 40 MG TABLET PO SCH (09:00)
[2022-02-10 09:13] LABS: Basophils # (A) 0.06 X 10*3/uL (0.00-0.10); Basophils % (A) 0.7 %; Eosinophils # (A) 0.38 X 10*3/uL (0.04-0.35); Eosinophils % (A) 4.3 %; HCT 33.2 % (37.2-46.3); HGB 9.8 g/dL (12.0-15.0); Immature Grans, Automated 0.3 %; Lymphocytes # (A) 0.63 X 10*3/uL (0.90-5.00); Lymphocytes % (A) 7.1 %; MCH 26.9 pg (27.0-32.0); MCHC 29.5 g/dL (32.0-37.0); MCV 91.2 fL (80.0-97.0); Mean Platelet Volume 11.2 fL (9.5-12.2); Monocytes # (A) 0.66 X 10*3/uL (0.20-1.00); Monocytes % (A) 7.5 %; NRBC Per 100 WBC 0 /100 WBCS (0.0-0.0); Neutrophils # (A) 7.09 X 10*3/uL (1.80-7.70); Neutrophils % (A) 80.1 %; Platelet Count 140 X 10*3/uL (140-440); RBC 3.64 X 10*6/uL (4.10-5.20); RDW 14.5 % (11.5-14.5); WBC 8.85 X 10*3/uL (4.50-10.00)
[2022-02-10] MEDS: SYMBICORT 160-4.5 MCG INHALER INHALATION SCH ×2 (09:45→19:52)
[2022-02-10 10:18] LABS: African American GFR (CKD) 101.2 (60.0-200.0); Anion Gap 17.3 mmol/L (10.00-18.00); BUN/Creat Ratio 18.83 Ratio (12.00-20.00); Blood Urea Nitrogen 11.3 mg/dL (9.0-27.0); Calcium 8.4 mg/dL (8.7-10.3); Carbon Dioxide 21.7 mmol/L (20.0-27.5); Non-African American GFR(CKD) 87.3 (60.0-200.0); Potassium 3.7 mmol/L (3.5-5.5)
[2022-02-10] MEDS ORDERED: DEXTROSE 50% SYRINGE 50 ML IVP PRN (13:35)
--- NOTE | 2022-02-10 13:41 | P.PN ---
Subjective Progress Note Date: 02/10/22 Principal diagnosis: metastatic lung cancer, right-sided pleural effusion This is a 76-year-old female patient with a recent acute ischemic stroke in the right middle cerebral artery distribution, metastatic non-small cell carcinoma lung cancer, atrial fibrillation maintained on Xarelto, hypertension, hyperlipidemia, chronic obstructive pulmonary disease, gastroesophageal reflux disease. The patient had been receiving palliative radiation to the medical metastatic site in the lower lumbar spine. She was not felt to be a good candidate for conventional chemotherapy. She would be considered for immunotherapy if not such a poor physical candidate. She was recently here for her acute CVA and was discharged to an extended care facility. On 02/06/2022 she took a fall there and was brought in to our emergency room. She states she fell in the bathroom. She denied any loss of consciousness. Denied any pre-or post symptoms. A chest x-ray was performed that revealed a increasing pleural effusion of the right lung. Right upper lobe opacity most likely representing her known primary site. Ultrasound of the right chest does reveal a 10.4 cm pocket and marked for possible thoracentesis. White count 9.0. Hemoglobin 9.8. Sodium 144. Potassium 3.8. BUN 8. Creatinine 0.5. Calcium 8.6. Influenza screen negative. RSV screen negative. COVID-19 screen negative. Urinalysis with many bacteria and high white count. Possible underlying UTI. She is seen today in consultation on the oncology unit. She is currently sitting up in bed. Awake and alert. She is anxious and upset. She states she is afraid she is going to in the hospital. She wants to go home. She is maintaining good O2 saturations up to 98% on 2 L nasal cannula. Afebrile. Hemodynamically stable. She is declining any procedures at this time including a thoracentesis. Patient was reevaluated today on 02/09/22, remains on the regular medical floor, patient is not in any distress, and when I saw her yesterday the patient requested to be made hospice. I still believe the patient should be made hospice, and hospice was consulted. I'm reevaluating this patient today on 02/10/2022. She is sitting up comfortably in the chair on room air. She denies any respiratory distress, cough, fever, chest pain. The patient has discussed wishes to be made hospice. Hospice consult was placed and we are waiting. Due to her overall prognosis I agree with this course of treatment. her pulmonary status is quite stable on Symbicort inhaler. no new chest x-ray today. we'll his CBC from today is stable with a WBC count 9, hemoglobin 10, hematocrit 33, platelet count 140,000. Her BMP is also stable sodium 143, potassium 3.7, chloride 104, serum CO2 22, BUN 11, creatinine 0.6, glucose 63. 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 Objective - Vital Signs Vital signs: Vital Signs Temp 98.1 F 02/10/22 12:24 Pulse 55 L 02/10/22 12:24 Resp 18 02/10/22 12:24 BP 134/68 02/10/22 12:24 Pulse Ox 94 L 02/10/22 12:24 FiO2 Intake & Output 02/09/22 02/10/22 02/10/22 18:59 06:59 18:59 Intake Total 200 590 Balance 200 590 Intake: IV 100 cefTRIAXone 1 gm In 100 Sodium Chloride 0.9% 50 ml @ 100 mls/hr IVPB DAILY@1800 [facility] Rx#: [id number] Intake, IV Titration 100 Amount Azithromycin 500 mg In 100 Sodium Chloride 0.9% 250 ml @ 250 mls/hr IVPB DAILY@2100 [facility] Rx#: [id number] Oral 590 Other: Voiding Method Bedside Commode Bedside Commode # Voids 2 1 - Exam Physical Exam: Revealed 76-year-old female in no distress on 2 L nasal cannula HEENT:[Neck is supple.] [No neck masses.] [No thyromegaly.] [No JVD.] Chest: [clear, diminished breath sounds and dullness at the right base. Cardiac Exam: [Normal S1 and S2, no S3 gallop, no murmur.] Abdomen: [Soft, nontender, no megaly, no rebound, no guarding, normal bowel sounds.] Extremities: [No clubbing, no edema, no cyanosis.] Neurological Exam: [No focal neurologic deficit.] - Labs CBC & Chem 7: 02/10/22 05:40 02/10/22 05:40 Labs: Abnormal Lab Results - Last 24 Hours (Table) 02/10/22 02/10/22 Range/Units 05:40 05:40 RBC 3.64 L (4.10-5.20) X 10*6/uL Hgb 9.8 L (12.0-15.0) g/dL Hct 33.2 L (37.2-46.3) % MCH 26.9 L (27.0-32.0) pg MCHC 29.5 L (32.0-37.0) g/dL Lymphocytes # 0.63 L (0.90-5.00) X 10*3/uL Eosinophils # 0.38 H (0.04-0.35) X 10*3/uL Glucose 63 L (70-110) mg/dL Calcium 8.4 L (8.7-10.3) mg/dL Microbiology - Last 24 Hours (Table) 02/07/22 04:13 Blood Culture - Preliminary Blood No Growth after 72 hours 02/06/22 22:30 Urine Culture - Preliminary Urine,Voided Enterococcus faecium VRE Yeast species Assessment and Plan Assessment: Fall without acute injury. Computed tomography scan of the brain revealed no acute intracranial process. Moderate diffuse age-related cerebral atrophy. Urinary tract infection, cultures pending Recent CVA with left-sided weakness Advanced metastatic non-small cell lung cancer with bone metastasis. Receiving palliative radiation to the lower spine but no conventional chemotherapy. to debilitated currently for immunotherapy. History of atrial fibrillation, anticoagulated with Xarelto History of chronic tobacco dependence History of hypertension Hyperlipidemia Chronic obstructive pulmonary disease Poor overall functional performance based on the above-mentioned multiple comorbidities ( Plan: hospice consult was placed. we'll hold off on thoracentesis, as patient wishes to be made hospice consulted infectious disease if patient wishes for treatment of her VRE infection. continue Symbicort inhaler Accu-Cheks every 6 hours and hypoglycemia protocol I have personally seen and examined the patient, performed the documentation and the assessment and plan as written. Number of minutes spent on the visit: [ 10]. Time with Patient: Less than 30
[2022-02-10] MEDS: ONDANSETRON 4 MG/2 ML VIAL IVP PRN (14:18)
[2022-02-10] MEDS: HYDROcodone/APAP 10-325MG 1 EACH TAB PO PRN ×2 (14:39→20:45)
[2022-02-10 16:57] LABS: Appearance,Urine Cloudy (Clear); Bacteria,Urine Many /hpf; Bilirubin,Urine Negative (Negative); Blood,Urine Small (Negative); Budding Yeast,Urine Few /hpf; Color,Urine Yellow; Glucose,Urine (UA) Negative (Negative); Hyaline Casts,Urine 5 /lpf (0-2); Ketones,Urine 2+ (Negative); Leukocyte Esterase,Urine Small (Negative); Mucus,Urine Many /hpf; Nitrite,Urine Negative (Negative); PH, Urine 5.5 (5.0-8.0); Protein,Urine 1+ (Negative); RBC,Urine 8 /hpf (0-5); Specific Gravity,Urine 1.026 (1.001-1.035); Squamous Epithelial Cell,Urine 17 /hpf (0-4); Urobilinogen,Urine <2.0 mg/dL (<2.0); WBC,Urine 26 /hpf (0-5)
[2022-02-10 17:09] LABS: Glucose,Whole Blood 91 mg/dL (70-110)
[2022-02-10] MEDS: RIVAROXABAN 20 MG TAB PO SCH (17:17)
[2022-02-10] MEDS: AZITHROMYCIN 500 MG in SODIUM CHLORIDE 0.9% 250 ML IVPB SCH (20:46)
[2022-02-10] MEDS: ATORVASTATIN 80 MG TAB PO SCH (20:46)
--- NOTE | 2022-02-10 21:07 | P.CONS ---
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 atrial fibrillation hypertension hyperlipidemia COPD patient was recently admitted to this hospital subsequently stabilized and discharged to the extended care facility apparently the patient did have a fall while at the shelter for which the patient was brought into the ER no clear history of any loss of consciousness and the patient denies having any headache or URI symptoms no chest pain or shortness of breath currently on room air she did have occasional cough nonproductive sputum no abdominal pain or any diarrhea the patient apparently did have a UA done on admission which was a straight cath per the daughter at the bedside mention there was some blood in it urine has been positive with moderate leukocyte esterase more than 1-2 WBC and the culture currently growing VRE and yeast species that has prompted this infectious disease consultation patient did have blood cultures drawn which has been negative patient did have a chest x-ray on admission increasing moderate size right effusion right upper lobe infiltrate Review of Systems Positive point has been mentioned in the HPI rest of the systems are negative Past Medical History Past Medical History: Eye Disorder, Hypertension, Osteoarthritis (OA) Additional Past Medical History / Comment(s): Hx. of DIVERTICULITIS, LT EYE MAC. DEGEN. HTN resolved after surgery., dysphagia History of Any Multi-Drug Resistant Organisms: None Reported Past Surgical History: Bariatric Surgery, Cholecystectomy, Orthopedic Surgery, Tubal Ligation Additional Past Surgical History / Comment(s): RIGHT SHOULDER SX, COLONOSCOPY, EGD sleeve gastrectomy 02-01-18 Past Anesthesia/Blood Transfusion Reactions: No Reported Reaction Additional Past Anesthesia/Blood Transfusion Reaction / Comm: Pt states that in June [address] Mckeon attempted to perform an EGD with dilation, the procedure had to be cancelled because she experienced a BP "way over 200 when they put me under" Past Psychological History: No Psychological Hx Reported Smoking Status: Never smoker Past Alcohol Use History: Daily Additional Past Alcohol Use History / Comment(s): Quit smoking in 1999. Past Drug Use History: None Reported - Past Family History Mother Family Medical History: CVA/TIA Father Family Medical History: Myocardial Infarction (MD) Medications and Allergies Home Medications Medication Instructions Recorded Confirmed Type amLODIPine [Norvasc] 5 mg PO DAILY 06/27/20 02/06/22 History Budesonide-Formot 160-4.5 Mcg 2 puff INHALATION RT-BID each 12/31/21 02/06/22 Rx [Symbicort 160-4.5 Mcg Inhaler] Metoprolol Tartrate [Lopressor] 50 mg PO BID #60 tab 01/20/22 02/06/22 Rx Magnesium Hydroxide [Milk of 2,400 mg PO DAILY PRN ml 01/22/22 02/06/22 Rx Magnesia Concentrate] polyethylene glycoL 3350 [Miralax] 17 gm PO BID packet 01/22/22 02/06/22 Rx Atorvastatin [Lipitor] 80 mg PO HS tab 01/31/22 02/06/22 Rx Rivaroxaban [Xarelto] 20 mg PO W/SUPPER tab 01/31/22 02/06/22 Rx fentaNYL 12MCG/HR PATCH [Duragesic 1 patch TRANSDERM Q72H 3 Days #1 01/31/22 02/06/22 Rx 12MCG/HR] patch ALPRAZolam [Xanax] 0.25 mg PO Q6H PRN 02/06/22 02/06/22 History Amiodarone [Cordarone] 100 mg PO DAILY 02/06/22 02/06/22 History HYDROcodone/APAP 10-325MG [[place] 1 tab PO Q4H PRN 02/06/22 02/06/22 History 10-325] Omeprazole 40 mg PO DAILY 02/06/22 02/06/22 History Sennosides-Docusate Sodium 2 tab PO BID 02/06/22 02/06/22 History [Senokot-S] Acetaminophen Tab [Tylenol] 650 mg PO Q6HR PRN tab 02/12/22 Rx Levothyroxine Sodium [Synthroid] 25 mcg PO DAILY@0630 tab 02/12/22 Rx Allergies Allergy/AdvReac Type Severity Reaction Status Date / Time Penicillins Allergy Severe Anaphylaxis Verified 02/06/22 16:01 morphine Allergy Rash/Hives Verified 02/06/22 16:01 Physical Exam Vitals: Vital Signs Temp Pulse Resp BP Pulse Ox 02/10/22 12:24 98.1 F 55 L 18 134/68 94 L 02/10/22 07:30 98 F 66 18 156/82 98 12/26/22 02:00 98.1 F 65 16 177/79 92 L 02/09/22 20:00 98.1 F 60 16 145/74 92 L Intake and Output 02/09/22 02/10/22 02/10/22 22:59 06:59 14:59 Intake Total 200 590 Balance 200 590 Intake: IV 100 cefTRIAXone 1 gm In 100 Sodium Chloride 0.9% 50 ml @ 100 mls/hr IVPB DAILY@1800 [facility] Rx#: [id number] Intake, IV Titration 100 Amount Azithromycin 500 mg In 100 Sodium Chloride 0.9% 250 ml @ 250 mls/hr IVPB DAILY@2100 [facility] Rx#: [id number] Oral 590 Other: Voiding Method Bedside Commode # Voids 2 1 GENERAL DESCRIPTION: Elderly female lying in bed, no distress. No tachypnea or accessory muscle of respiration use. HEENT: Shows Pallor , no scleral icterus. Oral mucous membrane is dry. No pharyngeal erythema or thrush NECK: Trachea central, no thyromegaly. LUNGS: Unlabored breathing. Decreased breath sounds at the base. No wheeze or crackle. HEART: S1, S2, regular rate and rhythm. No loud murmur ABDOMEN: Soft, no tenderness , guarding or rigidity, no organomegaly EXTREMITIES: No edema of feet. SKIN: No rash, no masses palpable. NEUROLOGICAL: The patient is awake, alert, oriented x3, mood and affect normal. Results CBC & Chem 7: 02/10/22 05:40 02/10/22 05:40 Labs: Abnormal Lab Results - Last 24 Hours (Table) 02/10/22 02/10/22 Range/Units 05:40 05:40 RBC 3.64 L (4.10-5.20) X 10*6/uL Hgb 9.8 L (12.0-15.0) g/dL Hct 33.2 L (37.2-46.3) % MCH 26.9 L (27.0-32.0) pg MCHC 29.5 L (32.0-37.0) g/dL Lymphocytes # 0.63 L (0.90-5.00) X 10*3/uL Eosinophils # 0.38 H (0.04-0.35) X 10*3/uL Glucose 63 L (70-110) mg/dL Calcium 8.4 L (8.7-10.3) mg/dL Microbiology - Last 24 Hours (Table) 02/07/22 04:13 Blood Culture - Preliminary Blood No Growth after 72 hours 02/06/22 22:30 Urine Culture - Preliminary Urine,Voided Enterococcus faecium VRE Yeast species Assessment and Plan (1) UTI (urinary tract infection) due to Enterococcus Status: Acute Code(s): N39.0 - URINARY TRACT INFECTION, SITE NOT SPECIFIED; B95.2 - ENTEROCOCCUS THE CAUSE OF DISEASES CLASSIFIED ELSEWHERE SNOMED Code(s): 631417390604923 Plan: 1patient with a positive urine culture with VRE and yeast in this patient who do have a history of recurrent UTIs patient current sample was obtained via straight cath per the daughter at the bedside and apparently the patient be complaining of no pertinent findings are noticed burning dark urine and there was some hematuria concerning for possible symptomatic cystitis. 2patient will be started on daptomycin to cover for the VRE we are not able to use Diflucan as the patient is on multiple medication interacting with it. 3we will repeat a UA straight cath if needed to get a clean-catch sample. We will follow on clinical condition and cultures to further adjust medication if needed Thank you for this consultation we will follow the patient along with you Time with Patient: Greater than 30
[2022-02-11 00:52] LABS: Glucose,Whole Blood 163 mg/dL (70-110)
--- NOTE | 2022-02-11 01:07 | PN ---
PROGRESS NOTE DATE OF SERVICE: 02/10/2022 SUBJECTIVE: This is a 76-year-old woman, who was admitted with right upper lobe pneumonia, is also being closely monitored at this time. The patient is also seen by inpatient rehab, Dr. Rodriguez. ECF rehab is a consideration. No chest pain. No palpitation. PHYSICAL EXAMINATION: VITAL SIGNS: Pulse is 55, blood pressure n respirations 18. CHEST: Few scattered rhonchi. ABDOMEN: Soft, nontender. LEGS: No edema. No swelling. NERVOUS SYSTEM: Diffusely weak. LABORATORY DATA: Reviewed. ASSESSMENT: 1. Recent fall. 2. Right upper lobe pneumonia. 3. Acute urinary tract infection, present on admission. 4. Recent acute ischemic stroke, right middle cerebral artery distribution. 5. History of atrial fibrillation. 6. Recent diagnosis of lung cancer with metastatic bone disease. 7. Hypertension. 8. Multiple medical issues. RECOMMENDATIONS: To continue current PT/OT evaluation. Increase ambulation. Continue the current medications, bronchodilators. Closely follow with Pulmonary. Further recommendations to follow. Possible ECF rehab versus inpatient rehab. MMODL / IJN: [id number] / RUBIA
[2022-02-11] MEDS: LEVOTHYROXINE 25 MCG TAB PO SCH (05:41)
[2022-02-11 06:20] LABS: Glucose,Whole Blood 95 mg/dL (70-110)
[2022-02-11] MEDS: HYDROcodone/APAP 10-325MG 1 EACH TAB PO PRN ×3 (06:25→20:22)
[2022-02-11] MEDS: SENNOSIDES-DOCUSATE SODIUM 1 EACH TAB PO SCH ×2 (09:41→20:23)
[2022-02-11] MEDS: amLODIPine 5 MG TAB PO SCH (09:41)
[2022-02-11] MEDS: polyethylene glycoL 3350 17 GM POWD.PACK PO SCH ×2 (09:41→20:23)
[2022-02-11] MEDS: PANTOPRAZOLE 40 MG TABLET PO SCH (09:41)
[2022-02-11] MEDS: METOPROLOL TARTRATE 50 MG TAB PO SCH ×2 (09:42→20:23)
[2022-02-11] MEDS: AMIODARONE 100 MG TAB PO SCH (11:16)
--- NOTE | 2022-02-11 11:29 | P.PN ---
Subjective Progress Note Date: 02/11/22 Principal diagnosis: metastatic non-small cell lung carcinoma, right-sided pleural effusion This is a 76-year-old female patient with a recent acute ischemic stroke in the right middle cerebral artery distribution, metastatic non-small cell carcinoma lung cancer, atrial fibrillation maintained on Xarelto, hypertension, hyperlipidemia, chronic obstructive pulmonary disease, gastroesophageal reflux disease. The patient had been receiving palliative radiation to the medical met astatic site in the lower lumbar spine. She was not felt to be a good candidate for conventional chemotherapy. She would be considered for immunotherapy if not such a poor physical candidate. She was recently here for her acute CVA and was discharged to an extended care facility. On 02/06/2022 she took a fall there and was brought in to our emergency room. She states she fell in the bathroom. She denied any loss of consciousness. Denied any pre-or post symptoms. A chest x-ray was performed that revealed a increasing pleural effusion of the right lung. Right upper lobe opacity most likely representing her known primary site. Ultrasound of the right chest does reveal a 10.4 cm pocket and marked for possible thoracentesis. White count 9.0. Hemoglobin 9.8. Sodium 144. Potassium 3.8. BUN 8. Creatinine 0.5. Calcium 8.6. Influenza screen negative. RSV screen negative. COVID-19 screen negative. Urinalysis with many bacteria and high white count. Possible underlying UTI. She is seen today in consultation on the oncology unit. She is currently sitting up in bed. Awake and alert. She is anxious and upset. She states she is afraid she is going to in the hospital. She wants to go home. She is maintaining good O2 saturations up to 98% on 2 L nasal cannula. Afebrile. Hemodynamically stable. She is declining any procedures at this time including a thoracentesis. Patient was reevaluated today on 02/09/22, remains on the regular medical floor, patient is not in any distress, and when I saw her yesterday the patient requested to be made hospice. I still believe the patient should be made hospice, and hospice was consulted. I'm reevaluating this patient today on 02/10/2022. She is sitting up comfortably in the chair on room air. She denies any respiratory distress, cough, fever, chest pain. The patient has discussed wishes to be made hospice. Hospice consult was placed and we are waiting. Due to her overall prognosis I agree with this course of treatment. her pulmonary status is quite stable on Symbicort inhaler. no new chest x-ray today. we'll his CBC from today is stable with a WBC count 9, hemoglobin 10, hematocrit 33, platelet count 140,000. Her BMP is also stable sodium 143, potassium 3.7, chloride 104, serum CO2 22, BUN 11, creatinine 0.6, glucose 63. 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 I'm reevaluating this patient today on 02/11/2022 on a general medical floor. She is fairly comfortable, up in the chair, on room air. she continues to deny any respiratory distress, cough, fever, chest pain. Apparently, the patient wishes to proceed with rehabilitation at an extended care facility, and has been evaluated by Dr. Toro. respiratory status is stable on Symbicort inhaler. Maintained on ceftriaxone for empiric therapy, and is completed course of Zithromax. Daptomycin was added by infectious disease yesterday for coverage of a VRE infection in the urine. no new x-ray to review today. no new BMP or CBC to review today. Procalcitonin was negative at 0.06. vital signs remain stable. patient is anticoagulated on Xarelto, and has GI prophylaxis in the form of Pro tonix. Objective - Vital Signs Vital signs: Vital Signs Temp 97.7 F 02/11/22 07:32 Pulse 59 L 02/11/22 07:32 Resp 18 02/11/22 07:32 BP 112/65 02/11/22 07:32 Pulse Ox 93 L 02/11/22 07:32 FiO2 Intake & Output 02/10/22 02/11/22 02/11/22 18:59 06:59 18:59 Intake Total 240 Balance 240 Intake: Intake, IV Titration 240 Amount cefTRIAXone 1 gm In 240 Sodium Chloride 0.9% 50 ml @ 100 mls/hr IVPB DAILY@1800 [facility] Rx#: [id number] Other: Voiding Method Bedside Commode Bedside Commode # Voids 1 - Exam Physical Exam: Revealed 76-year-old female in no distress on room air HEENT:[Neck is supple.] [No neck masses.] [No thyromegaly.] [No JVD.] Chest: [clear, diminished breath sounds and dullness at the right base. Cardiac Exam: [Normal S1 and S2, irregular rhythm, no S3 gallop, no murmur.] Abdomen: [Soft, nontender, no megaly, no rebound, no guarding, normal bowel sounds.] Extremities: [No clubbing, no edema, no cyanosis.] Neurological Exam: [No focal neurologic deficit.] - Labs CBC & Chem 7: 02/10/22 05:40 02/10/22 05:40 Labs: Abnormal Lab Results - Last 24 Hours (Table) 02/10/22 02/11/22 02/11/22 Range/Units 16:48 00:49 05:58 POC Glucose (mg/dL) 163 H (70-110) mg/dL C-Reactive Protein 4.40 H (0.00-0.80) mg/dL Urine Appearance Cloudy H (Clear) Urine Protein 1+ H (Negative) Urine Ketones 2+ H (Negative) Urine Blood Small H (Negative) Ur Leukocyte Esterase Small H (Negative) Urine RBC 8 H (0-5) /hpf Urine WBC 26 H (0-5) /hpf Ur Squamous Epith Cells 17 H (0-4) /hpf Urine Bacteria Many H (None) /hpf Hyaline Casts 5 H (0-2) /lpf Urine Mucus Many H (None) /hpf Urine Yeast (Budding) Few H (None) /hpf Microbiology - Last 24 Hours (Table) 02/07/22 04:13 Blood Culture - Preliminary Blood No Growth after 96 hours 02/06/22 22:30 Urine Culture - Final Urine,Voided Enterococcus faecium VRE Tereza sp,not albicans/galbr 02/10/22 16:48 Urine Culture - Preliminary Urine,Voided Assessment and Plan Assessment: Fall without acute injury. Computed tomography scan of the brain revealed no acute intracranial process. Moderate diffuse age-related cerebral atrophy. Urinary tract infection, positive VRE on daptomycin. Recent CVA with left-sided weakness Advanced metastatic non-small cell lung cancer with bone metastasis. Receiving palliative radiation to the lower spine but no conventional chemotherapy. to debilitated currently for immunotherapy. History of atrial fibrillation, anticoagulated with Xarelto History of chronic tobacco dependence History of hypertension Hyperlipidemia Chronic obstructive pulmonary disease Poor overall functional performance based on the above-mentioned multiple comorbidities ( Plan: being evaluated for rehab at [facility] we'll hold off on thoracentesis, as patient is considering hospice. continue Symbicort inhaler continue daptomycin for VRE coverage procalcitonin was negative and we will discontinue ceftriaxone Accu-Cheks every 6 hours and hypoglycemia protocol I have personally seen and examined the patient, performed the documentation and the assessment and plan as written. Number of minutes spent on the visit: [ 10]. Time with Patient: Less than 30
[2022-02-11 11:36] LABS: Glucose,Whole Blood 110 mg/dL (70-110)
--- NOTE | 2022-02-11 12:26 | CDI ---
Documentation Clarification Form Date: 02/11/2022 12:13:01 PM From: Katharina Robin RN, CCDS Admit Date: 02/06/2022 10:59:00 PM Patient Name: Gracie Ybarra Visit Number: [id number] Discharge Date: ATTENTION: The Clinical Documentation Specialists (CDI) and [facility] Coding Staff appreciate your assistance in clarifying documentation. Please respond to the clarification below the line at the bottom and electronically sign. The CDI & [facility] Coding staff will review the response and follow-up if needed. Please note: Queries are made part of the Legal Health Record. If you have any questions, please contact the author of this message via ITS. Dr. Sheila Abreu Atrial Fibrillation is documented in the H/P and subsequent progress notes. Additional clarification regarding the type of atrial fibrillation is requested. History/Risk Factors: CVA, Hypertension, Clinical Indicators: 72-year-old female present to with concern of fall at [facility] facility. She has history of atrial fibrillation with ongoing treatment Xarelto. 02/06 EKG/telemetry: normal sinus rhythm at 62. 02/06 H/P: Heart irregular rate known atrial fibrillation Treatment: Xarelto 20 MG PO W/Supper Cordarone 100MG PO Daily Please clarify the type of atrial fibrillation, if known: [ ] Chronic [ ] Permanent [x ] Paroxysmal [ ] Persistent [ ] Other, please specify [ ] Unable to determine (Template Last Revised: June 2020) MTDD
[2022-02-11] MEDS: SYMBICORT 160-4.5 MCG INHALER INHALATION SCH ×2 (12:44→19:46)
--- NOTE | 2022-02-11 13:21 | CDI ---
Documentation Clarification Form Date: 02/11/2022 From: Katharina Robin RN, CCDS Admit Date: 02/06/2022 10:59:00 PM Patient Name: Gracie Ybarra Visit Number: [id number] Discharge Date: ATTENTION: The Clinical Documentation Specialists (CDI) and [facility] Coding Staff appreciate your assistance in clarifying documentation. Please respond to the clarification below the line at the bottom and electronically sign. The CDI & [facility] Coding staff will review the response and follow-up if needed. Please note: Queries are made part of the Legal Health Record. If you have any questions, please contact the author of this message via ITS. Dr. Sheila Abreu Pneumonia is documented in the H/P and subsequent progress notes which may lack sufficient clinical evidence/support in the medical record. Additional clarification is requested. 02/08 Pulmonary consult: A chest x-ray was performed that revealed a increasing pleural effusion of the right lung. Right upper lobe opacity most likely representing her know primary site. Advanced metastatic non-small cell lung cancer with bone metastasis. History/Risk Factors: CVA, Hypertension, Atrial Fibrillation (per H/P) Clinical Indicators: 72-year-old female present to with concern of fall at [facility] facility. Patient recently diagnosed with lung cancer with metastatic disease to bone. 02/06 Vital signs: 147/58 61 20 98 98% 3/L 02/06 Labs: WBC 11.0, 12.22 CXR: Increasing moderate size right pleural effusion Right upper lobe infiltrate Underlying mass is not excluded Treatment: Palliative radiation Symbicot 2 pulff Inhalation BID Monitor O2 Sat's (titrate Rocephin 1 GM IVPB 02/07-02/11 Zithromyicin 500mg IVPB 02/07-02/10 Please clarify if Pneumonia is a valid diagnosis? [ ] Yes, Pneumonia is present as evidence by (additional clinical support): [ x ] No, Pneumonia is ruled out [ ] Other (please specify diagnosis) [ ] Unable to determine (Template Last Revised: April 2020) MTDD
--- NOTE | 2022-02-11 16:07 | P.PN ---
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 cancer atrial fibrillation hypertension hyperlipidemia COPD, patient was brought back to the hospital apparently the patient did have a fall patient did have a mild urinary symptoms and a positive UA obtained through straight cath in the ER with the culture grew VRE on today's evaluation that is 02/11/2022, the patient denies having any fever or any chills, the patient is breathing comfortably currently on room air patient denies having any chest pain shortness of breath or cough no nausea no vomiting no nausea no vomiting no abdominal pain Objective - Vital Signs Vital signs: Vital Signs Temp 97.5 F L 02/11/22 12:16 Pulse 62 02/11/22 12:16 Resp 18 02/11/22 12:16 BP 125/69 02/11/22 12:16 Pulse Ox 93 L 02/11/22 12:16 FiO2 Intake & Output 02/10/22 02/11/22 02/11/22 18:59 06:59 18:59 Intake Total 240 Balance 240 Intake: Intake, IV Titration 240 Amount cefTRIAXone 1 gm In 240 Sodium Chloride 0.9% 50 ml @ 100 mls/hr IVPB DAILY@1800 [facility] Rx#: [id number] Other: Voiding Method Bedside Commode Bedside Commode # Voids 1 1 - Exam GENERAL DESCRIPTION: An elderly female lying in bed in no distress RESPIRATORY SYSTEM: Unlabored breathing , decreased breath sounds at bases HEART: S1 S2 regular rate and rhythm , ABDOMEN: Soft , no tenderness EXTREMITIES: No edema feet - Labs CBC & Chem 7: 02/10/22 05:40 02/10/22 05:40 Labs: Abnormal Lab Results - Last 24 Hours (Table) 02/10/22 02/11/22 02/11/22 Range/Units 16:48 00:49 05:58 POC Glucose (mg/dL) 163 H (70-110) mg/dL C-Reactive Protein 4.40 H (0.00-0.80) mg/dL Urine Appearance Cloudy H (Clear) Urine Protein 1+ H (Negative) Urine Ketones 2+ H (Negative) Urine Blood Small H (Negative) Ur Leukocyte Esterase Small H (Negative) Urine RBC 8 H (0-5) /hpf Urine WBC 26 H (0-5) /hpf Ur Squamous Epith Cells 17 H (0-4) /hpf Urine Bacteria Many H (None) /hpf Hyaline Casts 5 H (0-2) /lpf Urine Mucus Many H (None) /hpf Urine Yeast (Budding) Few H (None) /hpf Microbiology - Last 24 Hours (Table) 02/07/22 04:13 Blood Culture - Preliminary Blood No Growth after 96 hours 02/06/22 22:30 Urine Culture - Final Urine,Voided Enterococcus faecium VRE Tereza sp,not albicans/galbr 02/10/22 16:48 Urine Culture - Preliminary Urine,Voided Assessment and Plan (1) UTI (urinary tract infection) due to Enterococcus Current Visit: Yes Status: Acute Code(s): N39.0 - URINARY TRACT INFECTION, SITE NOT SPECIFIED; B95.2 - ENTEROCOCCUS THE CAUSE OF DISEASES CLASSIFIED ELS EWHERE SNOMED Code(s): 845342095268613 Plan: 1patient with a positive urine culture with VRE and yeast in this patient who do have a history of recurrent UTIs patient current sample was obtained via straight cath per the daughter at the bedside and apparently the patient be complaining of no pertinent findings are noticed burning dark urine and there was some hematuria concerning for possible symptomatic cystitis. 2patient to continue with daptomycin to cover for the VRE we are not able to use Diflucan as the patient is on multiple medication interacting with it. 3she did have a normal pro-calcitonin making pneumonia to be less likely we will discontinue Rocephin and Zithromax Time with Patient: Less than 30
[2022-02-11 17:43] LABS: Glucose,Whole Blood 97 mg/dL (70-110)
[2022-02-11] MEDS: RIVAROXABAN 20 MG TAB PO SCH (18:09)
[2022-02-11] MEDS: ALPRAZolam 0.25 MG TAB PO PRN (20:23)
[2022-02-11] MEDS: ATORVASTATIN 80 MG TAB PO SCH (20:25)
[2022-02-12 00:21] LABS: Glucose,Whole Blood 116 mg/dL (70-110)
--- NOTE | 2022-02-12 02:26 | PN ---
PROGRESS NOTE DATE OF SERVICE: 02/11/2022 SUBJECTIVE: This is a 76-year-old woman who was admitted with fall and right upper lobe pneumonia The family is actually planning hospice evaluation at this time. The patient also had VRE and Tereza from the culture. PHYSICAL EXAMINATION: VITAL SIGNS: Pulse is 62, blood pressure 125/69, respirations 18. CHEST: A few scattered rhonchi. ABDOMEN: Soft ASSESSMENT: 1. Recurrent falls. 2. Right upper lobe pneumonia. 3. Acute urinary tract infection with VRE. 4. Recent acute ischemic stroke, right middle cerebral artery distribution. 5. Recent diagnosis of lung cancer with metastatic bone disease. 6. History of atrial fibrillation. 7. Hypertension. 8. Multiple medical issues. RECOMMENDATIONS AND DISCUSSION: I recommend to continue comfort measures. Continue to monitor closely. Follow up with multiple consultants. Prognosis extremely guarded and social work for possible [facility] discharge. KADE / SHRUTHI: [id number] / MTDD
[2022-02-12] MEDS: HYDROcodone/APAP 10-325MG 1 EACH TAB PO PRN (04:23)
[2022-02-12] MEDS: LEVOTHYROXINE 25 MCG TAB PO SCH (05:51)
[2022-02-12 06:40] LABS: Glucose,Whole Blood 90 mg/dL (70-110)
[2022-02-12 07:32] VITALS: BP 127/77; PULSE 56; RESP 18; TEMP 98.1
[2022-02-12] MEDS: SYMBICORT 160-4.5 MCG INHALER INHALATION SCH (08:37)
[2022-02-12] MEDS: amLODIPine 5 MG TAB PO SCH (08:46)
[2022-02-12] MEDS: AMIODARONE 100 MG TAB PO SCH (08:46)
[2022-02-12] MEDS: SENNOSIDES-DOCUSATE SODIUM 1 EACH TAB PO SCH (08:46)
[2022-02-12] MEDS: PANTOPRAZOLE 40 MG TABLET PO SCH (08:46)
[2022-02-12] MEDS: polyethylene glycoL 3350 17 GM POWD.PACK PO SCH (08:46)
--- NOTE | 2022-02-12 12:37 | P.PN ---
Subjective Progress Note Date: 02/12/22 This is a 76-year-old female patient with a recent acute ischemic stroke in the right middle cerebral artery distribution, metastatic non-small cell carcinoma lung cancer, atrial fibrillation maintained on Xarelto, hypertension, hyperlipidemia, chronic obstructive pulmonary disease, gastroesophageal reflux disease. The patient had been receiving palliative radiation to the medical metastatic site in the lower lumbar spine. She was not felt to be a good candidate for conventional chemotherapy. She would be considered for immunotherapy if not such a poor physical candidate. She was recently here for her acute CVA and was discharged to an extended care facility. On 02/06/2022 she took a fall there and was brought in to our emergency room. She states she fell in the bathroom. She denied any loss of consciousness. Denied any pre-or post symptoms. A chest x-ray was performed that revealed a increasing pleural effusion of the right lung. Right upper lobe opacity most likely representing her known primary site. Ultrasound of the right chest does reveal a 10.4 cm pocket and marked for possible thoracentesis. White count 9.0. Hemoglobin 9.8. Sodium 144. Potassium 3.8. BUN 8. Creatinine 0.5. Calcium 8.6. Influenza screen negative. RSV screen negative. COVID-19 screen negative. Urinalysis with many bacteria and high white count. Possible underlying UTI. She is seen today in consultation on the oncology unit. She is currently sitting up in bed. Awake and alert. She is anxious and upset. She states she is afraid she is going to in the hospital. She wants to go home. She is maintaining good O2 saturations up to 98% on 2 L nasal cannula. Afebrile. Hemodynamically stable. She is declining any procedures at this time including a thoracentesis. Patient was reevaluated today on 02/09/22, remains on the regular medical floor, patient is not in any distress, and when I saw her yesterday the patient requested to be made hospice. I still believe the patient should be made hospice, and hospice was consulted. I'm reevaluating this patient today on 02/10/2022. She is sitting up comfortably in the chair on room air. She denies any respiratory distress, cough, fever, chest pain. The patient has discussed wishes to be made hospice. Hospice consult was placed and we are waiting. Due to her overall prognosis I agree with this course of treatment. her pulmonary status is quite stable on Symbicort inhaler. no new chest x-ray today. we'll his CBC from today is stable with a WBC count 9, hemoglobin 10, hematocrit 33, platelet count 140,000. Her BMP is also stable sodium 143, potassium 3.7, chloride 104, serum CO2 22, BUN 11, creatinine 0.6, glucose 63. 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 I'm reevaluating this patient today on 02/11/2022 on a general medical floor. She is fairly comfortable, up in the chair, on room air. she continues to deny any respiratory distress, cough, fever, chest pain. Apparently, the patient wishes to proceed with rehabilitation at an extended care facility, and has been evaluated by Dr. Toro. respiratory status is stable on Symbicort inhaler. Maintained on ceftriaxone for empiric therapy, and is completed course of Zithromax. Daptomycin was added by infectious disease yesterday for coverage of a VRE infection in the urine. no new x-ray to review today. no new BMP or CBC to review today. Procalcitonin was negative at 0.06. vital signs remain stable. patient is anticoagulated on Xarelto, and has GI prophylaxis in the form of Protonix. The patient is seen today 02/12/2022 in follow-up on the regular medical floor. She is currently resting comfortably in bed. Awake and alert in no acute distress. Denies any worsening shortness of breath, cough or congestion. Follow-up urine culture revealed no growth. Blood culture revealed no growth. Blood glucose 116. He is continued on Symbicort. Antibiotics in the form of ceftriaxone and daptomycin. Anticoagulated with Xarelto. Objective - Vital Signs Vital signs: Vital Signs Temp 98.1 F 02/12/22 07:22 Pulse 56 L 02/12/22 07:22 Resp 18 02/12/22 07:22 BP 127/77 02/12/22 07:22 Pulse Ox 93 L 02/12/22 08:37 FiO2 Intake & Output 02/11/22 02/12/22 02/12/22 18:59 06:59 18:59 Intake Total 540 Balance 540 Intake: Oral 540 Other: Voiding Method Bedside Commode Bedside Commode Bedside Commode # Voids 1 1 - Exam GENERAL EXAM: Alert, pleasant 76-year-old female, on room air, comfortable in no apparent distress. HEAD: Normocephalic. EYES: Normal reaction of pupils, equal size. NOSE: Clear with pink turbinates. THROAT: No erythema or exudates. NECK: No masses, no JVD. CHEST: No chest wall deformity. LUNGS: Equal air entry with no crackles, wheeze, rhonchi or dullness. CVS: S1 and S2 normal with no audible murmur, regular rhythm. ABDOMEN: No hepatosplenomegaly, normal bowel sounds, no guarding or rigidity. SPINE: No scoliosis or deformity SKIN: No rashes CENTRAL NERVOUS SYSTEM: No focal deficits, tone is normal in all 4 extremities. EXTREMITIES: There is no peripheral edema. No clubbing, no cyanosis. Peripheral pulses are intact. - Labs CBC & Chem 7: 02/10/22 05:40 02/10/22 05:40 Labs: Abnormal Lab Results - Last 24 Hours (Table) 02/12/22 Range/Units 00:19 POC Glucose (mg/dL) 116 H (70-110) mg/dL Microbiology - Last 24 Hours (Table) 02/07/22 04:13 Blood Culture - Preliminary Blood No Growth after 120 hours 02/10/22 16:48 Urine Culture - Final Urine,Voided Assessment and Plan Assessment: Fall without acute injury. Computed tomography scan of the brain revealed no acute intracranial process. Moderate diffuse age-related cerebral atrophy. 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 Receiving palliative radiation to the lower spine but no conventional chemotherapy. to debilitated currently for immunotherapy. History of atrial fibrillation, anticoagulated with Xarelto History of chronic tobacco dependence History of hypertension Hyperlipidemia Chronic obstructive pulmonary disease Poor overall functional performance based on the above-mentioned multiple comorbidities Plan: The patient was seen and evaluated Labs and medications reviewed Continue Symbicort, albuterol Stable and on room air Patient is requesting to go home with hospice/hospice house I have personally seen and examined the patient, performed the documentation and the assessment and plan as written. Number of minutes spent on the visit: 10.
--- NOTE | 2022-02-17 15:48 | P.DS ---
Providers Date of admission: 02/06/22 22:59 Expected date of discharge: 02/12/22 Attending physician: Sheila Abreu Consults: 02/07/22 13:43 Consult Physician Routine Consulting Provider: Mukseh Rocha Consult Reason/Comments: pneumonia Do you want consulting provider notified?: Yes 02/07/22 13:50 Consult Physician Routine Consulting Provider: Ronald Steele Consult Reason/Comments: Known lung cancer with metastatic bone disease Do you want consulting provider notified?: Yes Consult Physician Routine Consulting Provider: Rene Rodriguez Consult Reason/Comments: Possible inpatient rehab Do you want consulting provider notified?: Yes 02/10/22 13:26 Consult Physician Routine Consulting Provider: Nikita Davey Consult Reason/Comments: VRE in urine Do you want consulting provider notified?: Yes Primary care physician: Sheila Abreu [facility] Course: Final diagnosis Recurrent falls Right upper lobe pneumonia Acute urinary tract infection with VRE Recent acute ischemic stroke, right middle cerebral artery distribution Recent diagnosis of lung cancer and metastatic bone disease History of atrial fibrillation Hypertension No code Discharge disposition Patient is being discharged in a stable condition with guarded prognosis to [facility]. Patient will follow-up with Dr. Abreu in the outpatient setting upon discharge. Patient is to continue with hospice services per patient and family request.. Total time taken is greater than 35 minutes. Hospital course This is a 76-year-old female who was recently admitted with falls and right upper lobe pneumonia and also found to have VRE and chetna in the urine culture. Patient was maintained on IV antibiotics with infectious disease following. Patient with overall decline and family recommending and requesting hospice at the [facility]. Please refer to previous dictations and other consultation notes for further HPI. Currently no reports of chest pain, shortness of breath, or palpitations. Patient is afebrile. No reports of nausea or vomiting and patient is tolerating diet. Patient will be going to [facility] today. Overall guarded prognosis. Physical exam: Gen: This is a 76-year-old female who is awake, alert and oriented 2, well- developed, well-nourished HEENT: Head is atraumatic, normocephalic. Pupils equal, round. Sclerae is anicteric. NECK: Supple. No JVD. No lymphadenopathy. No thyromegaly. LUNGS: Diminished breath sounds bilaterally with no wheezes or rhonchi. No intercostal retractions. HEART: Regular rate and rhythm. No murmur. ABDOMEN: Soft. Bowel sounds are present. No masses. No tenderness. EXTREMITIES: No pedal edema. No calf tenderness. NEUROLOGICAL: Patient is awake, alert and oriented x2. Cranial nerves 2 through 12 are grossly intact. Diffusely weak Please refer to medication reconciliation sheet for a list of medications. The impression and plan of care has been dictated by Sophia Verduzco, Nurse Practitioner as directed. Dr. Dave MD I have performed a history and examination and MDM of this patient, discussed the same with the dictator, and agree with the dictator's assessment and plan as written ,documented as a scribe. Based on total visit time, I have performed more than 50% of the visit. Patient Condition at Discharge: Fair Plan - Discharge Summary New Discharge Prescriptions: New Levothyroxine Sodium [Synthroid] 25 mcg PO DAILY@0630 tab Acetaminophen Tab [Tylenol] 650 mg PO Q6HR PRN tab PRN Reason: Mild Pain Or Fever > 100.5 Continue Metoprolol Tartrate [Lopressor] 50 mg PO BID #60 tab polyethylene glycoL 3350 [Miralax] 17 gm PO BID packet fentaNYL 12MCG/HR PATCH [Duragesic 12MCG/HR] 1 patch TRANSDERM Q72H 3 Days #1 patch HYDROcodone/APAP 10-325MG [Orgas 10-325] 1 tab PO Q4H PRN PRN Reason: Pain Amiodarone [Cordarone] 100 mg PO DAILY amLODIPine [Norvasc] 5 mg PO DAILY Budesonide-Formot 160-4.5 Mcg [Symbicort 160-4.5 Mcg Inhaler] 2 puff INHALATION RT-BID each Magnesium Hydroxide [Milk of Magnesia Concentrate] 2,400 mg PO DAILY PRN ml PRN Reason: Constipation Atorvastatin [Lipitor] 80 mg PO HS tab Rivaroxaban [Xarelto] 20 mg PO W/SUPPER tab ALPRAZolam [Xanax] 0.25 mg PO Q6H PRN PRN Reason: Anxiety Sennosides-Docusate Sodium [Senokot-S] 2 tab PO BID Omeprazole 40 mg PO DAILY Discharge Medication List amLODIPine [Norvasc] 5 mg PO DAILY 06/27/20 [History] Budesonide-Formot 160-4.5 Mcg [Symbicort 160-4.5 Mcg Inhaler] 2 puff INHALATION RT-BID each 12/31/21 [Rx] Metoprolol Tartrate [Lopressor] 50 mg PO BID #60 tab 01/20/22 [Rx] Magnesium Hydroxide [Milk of Magnesia Concentrate] 2,400 mg PO DAILY PRN ml 01/22/22 [Rx] polyethylene glycoL 3350 [Miralax] 17 gm PO BID packet 01/22/22 [Rx] Atorvastatin [Lipitor] 80 mg PO HS tab 01/31/22 [Rx] Rivaroxaban [Xarelto] 20 mg PO W/SUPPER tab 01/31/22 [Rx] fentaNYL 12MCG/HR PATCH [Duragesic 12MCG/HR] 1 patch TRANSDERM Q72H 3 Days #1 patch 01/31/22 [Rx] ALPRAZolam [Xanax] 0.25 mg PO Q6H PRN 02/06/22 [History] Amiodarone [Cordarone] 100 mg PO DAILY 02/06/22 [History] HYDROcodone/APAP 10-325MG [Orgas 10-325] 1 tab PO Q4H PRN 02/06/22 [History] Omeprazole 40 mg PO DAILY 02/06/22 [History] Sennosides-Docusate Sodium [Senokot-S] 2 tab PO BID 02/06/22 [History] Acetaminophen Tab [Tylenol] 650 mg PO Q6HR PRN tab 02/12/22 [Rx] Levothyroxine Sodium [Synthroid] 25 mcg PO DAILY@0630 tab 02/12/22 [Rx] Follow up Appointment(s)/Referral(s): Sheila Abreu MD [Primary Care Provider] - 1-2 days [facility] Visiting Nurse, [NON-STAFF] - 1 Week Discharge Disposition: HOME WITH HOSPICE
== END 2022-02-12 11:07 | disposition hospice, home (50) | DRG 690 ==
LOC: EC 15:15 → 5NMEDONC 22:59
PROVIDERS: ADMIT Internal Medicine; ATTEND Internal Medicine
DX: N39.0 Urinary tract infection, site not specified (principal); C34.90 Malignant neoplasm of unspecified part of unspecified bronchus or lung; Z16.22 Resistance to vancomycin related antibiotics; C79.51 Secondary malignant neoplasm of bone; I69.354 Hemiplegia and hemiparesis following cerebral infarction affecting left non-dominant side; J44.0 Chronic obstructive pulmonary disease with (acute) lower respiratory infection; J90 Pleural effusion, not elsewhere classified; Z16.21 Resistance to vancomycin; B95.2 Enterococcus as the cause of diseases classified elsewhere; E78.5 Hyperlipidemia, unspecified; I10 Essential (primary) hypertension; M81.0 Age-related osteoporosis without current pathological fracture; I48.0 Paroxysmal atrial fibrillation; R29.6 Repeated falls; S09.90XA Unspecified injury of head, initial encounter; W01.0XXA Fall on same level from slipping, tripping and stumbling without subsequent striking against object, initial encounter; Z20.822 Contact with and (suspected) exposure to COVID-19; Z51.5 Encounter for palliative care; Z66 Do not resuscitate; H35.30 Unspecified macular degeneration; R13.10 Dysphagia, unspecified; G89.29 Other chronic pain; R31.9 Hematuria, unspecified; Z79.01 Long term (current) use of anticoagulants; Z79.51 Long term (current) use of inhaled steroids; Z79.890 Hormone replacement therapy; Z79.899 Other long term (current) drug therapy; Z82.3 Family history of stroke; Z82.49 Family history of ischemic heart disease and other diseases of the circulatory system; Z87.891 Personal history of nicotine dependence; Z79.891 Long term (current) use of opiate analgesic; Z92.3 Personal history of irradiation; Z98.84 Bariatric surgery status; Z88.5 Allergy status to narcotic agent; Z88.0 Allergy status to penicillin; Z87.440 Personal history of urinary (tract) infections
CPT/HCPCS: 36415; 70450; 71046; 76604; 80048; 80053; 81001; 83605; 83735; 84100; 84145; 84443; 84484; 85025; 85610; 85730; 86140; 87040; 87077; 87086; 87186; 87636; 93005; 94640; 94760; 96361; 96365; 96366; 96368; 99285